=== PATIENT | male | born 1950 | race Caucasian/White ===

== ENCOUNTER 2016-03-18 10:04 | Emergency (ER) | payer OTHER ==
[~2016-03-18] VITALS: Ht 182.9 cm; Wt 102.4 kg
[~2016-03-18 10:04] MED LIST: OMEP40CA PO
[2016-03-18 10:06] VITALS: TEMP 36.8; Ht 182.9 cm; Wt 102.4 kg
[2016-03-18] MEDS ORDERED: DOCU100C PO (10:16)
[2016-03-18] MEDS ORDERED: OXYC-57 PO (10:16)
[2016-03-18] MEDS ORDERED: SUCR1TAB29 PO (10:16)
[2016-03-18] MEDS ORDERED: ONDANSETRON INJ 2 MG/ML 2 ML VIAL IV STA (10:35)
[2016-03-18] MEDS ORDERED: HYDROmorphone INJ 1 MG/ML SYR IV STA (10:35)
[2016-03-18] MEDS ORDERED: VANCOMYCIN 1GM/270ML NSS IV STA (10:35)
[2016-03-18] MEDS ORDERED: SODIUM CHLORIDE 0.9% 1000ML 1,000 ML IV STA (10:35)
[2016-03-18] MEDS ORDERED: ACETAMINOPHEN 500 MG TAB PO STA (10:35)
--- NOTE | 2016-03-18 10:41 | EMERGENCY ROOM VISIT NOTE ---
History Report prepared by Moo: Alber Minor Under the Supervision of: Dr. Heather Lopez M.D. First contact with patient: 10:29 Chief Complaint: ARM PAIN Stated Complaint: LT ARM PAIN/SWELLING-RECENT SURG. 03/14/16 History of Present Illness The patient is a 65 year old male who presents to the Emergency Room with complaints of sharp left arm pain that began today. The patient rates his pain severity a 6/10. Four days ago, the patient had left arm surgery. He had bone spurs removed, arthritis removed, and a slight tear repaired. He is experiencing some elbow and wrist pain as well. He is experiencing some arm erythema and edema as well. He denies any shoulder pain. He started physical therapy yesterday. Source of History: patient Onset: today Position: arm (left) Symptom Intensity: 6/10 Quality: sharp Timing: constant Note: He is experiencing some wrist and elbow pain. He has some arm erythema and edema as well. He denies any shoulder pain. Review of Systems See HPI for pertinent positives & negatives. A total of 10 systems reviewed and were otherwise negative. Past Medical & Surgical Medical Problems: (1) Diab Alla Wo Comp Type Ii Or Nos/Not Uncontrolled (2) Esophageal Reflux (3) Hypertension Nos Surgical Problems: (1) Acute Cholecystitis (2) History of back surgery Family History Family history not pertinent due to age. Social History Smoking Status: Never Smoker Alcohol Use: none Drug Use: none Marital Status: Housing Status: lives with family Occupation Status: unemployed Current/Historical Medications Scheduled Docusate Sodium (Stool Softener), 100 MG PO BID Omeprazole (Prilosec), 40 MG PO DAILY Ondasetron Odt (Zofran Odt), 4 MG SL Q6H Polyethylene Glycol 3350 (Miralax), 17 GM PO DAILY Sucralfate (Carafate), 1 GM PO ACHS Scheduled PRN Hydromorphone Hcl (Dilaudid), 1-2 TAB PO Q4H PRN for Pain Oxycodone/Acetaminophen 5MG/325MG (Percocet 5MG/325MG), 1-2 TABLETS PO Q4H PRN for Pain Allergies Coded Allergies: No Known Allergies (Verified Allergy, Unknown, 11/15/02) Physical Exam Vital Signs Date Time Temp Pulse Resp B/P Pulse Ox O2 Delivery O2 Flow Rate FiO2 1/7/17 13:21 67 16 128/81 91 Room Air 03/18/16 12:09 64 18 139/84 93 Room Air 03/18/16 10:06 36.8 85 18 147/85 98 Room Air Physical Exam CONSTITUTIONAL: Moderate painful distress HEENT: No icterus, moist mucous membranes NECK: No meningismus, trachea is midline. CARDIOVASCULAR: Regular rate, normal perfusion RESPIRATORY: Unlabored breathing. Clear to auscultation. GASTROINTESTINAL: Non-tender GENITOURINARY: No flank tenderness MUSCULOSKELETAL: Full range of motion EXTREMITY: Left shoulder surgical incisions healing well. Mild erythema and tenderness to lateral left elbow. NEUROLOGIC: No acute gross focal deficits. PSYCHIATRIC: Normal affect SKIN: Normal for ethnicity. Medical Decision & Procedures ER Provider Diagnostic Interpretation: Radiology results are stated below per my review and radiologist interpretation. LEFT UPPER EXTREMITY VENOUS DOPPLER CLINICAL HISTORY: Left arm pain. Recent surgery. COMPARISON STUDY: No previous studies for comparison. FINDINGS: The left internal jugular, subclavian, axillary, brachial, basilic, radial, ulnar and cephalic veins are patent. No venous thrombus is identified within the left upper extremity by sonography. Note is made of a fluid collection within the deep soft tissues along the lateral aspect the left elbow which measures 3.4 x 2.7 x 1 cm. This fluid collection is simple appearing. IMPRESSION: 1. No deep venous thrombus within the left upper extremity. 2. 3.4 x 2.7 x 1 cm simple appearing fluid collection within the deep soft tissues along the lateral aspect of the left elbow. The sonographic appearance is nonspecific. This could reflect a distended bursa or joint effusion. Electronically signed by: Marcio Steward M.D. 03/18/2016 12:06 PM Dictated Date/Time: 03/18/2016 12:02 PM Medications Administered Medications (Trade) Dose Ordered Sig/Fox Route Start Time Stop Time Status Last Admin Dose Admin Acetaminophen (Tylenol Tab) 1,000 mg NOW STAT PO 03/18/16 10:35 03/18/16 10:40 DC 03/18/16 11:02 1,000 MG Hydromorphone HCl 1 mg 1 mg PRN STAT IV 03/18/16 10:35 03/18/16 10:40 DC 03/18/16 11:02 1 MG Sodium Chloride (Nss 1000ml) 1,000 ml @ 0 mls/hr Q0M STAT IV 03/18/16 10:35 03/18/16 10:40 DC 03/18/16 11:06 0 MLS/HR Ondansetron HCl (Zofran Inj) 4 mg NOW STAT IV 03/18/16 10:35 03/18/16 10:40 DC 03/18/16 11:01 4 MG Vancomycin HCl (Vancomycin 1gm/ 270ml Nss) 1 gm NOW STAT IV 03/18/16 10:35 03/18/16 10:40 DC 03/18/16 11:02 1 GM ED Course 1029: Past medical records reviewed. The patient was evaluated in room B11. A complete history and physical examination was performed. 1335: Vancomycin HCl 1 gm IV, Zofran Inj 4 mg IV, Sodium Chloride 1000 ml @ 0 mls/hr Wide Open IV, Dilaudid Inj 1 mg IV, Tylenol Tab 1000 mg PO 1300: I discussed the patient's case with Orthopedics. The patient is doing much better. 1320: Upon reexamination the patient is resting. I discussed results and treatment plan with the patient. He verbalizes agreement and understanding. The patient is ready for discharge. Medical Decision Differential diagnoses include but are not limited to; musculoskeletal pain/ strain, DVT, cellulitis, and bursitis. 65-year-old presented to the emergency room with his postop day #4 for evaluation of positional and palpable, reproducible pain of the left lateral elbow of unclear etiology. Patient recently had shoulder surgery but has no specific complaints around his shoulder than expected postoperative pain and wounds are healing well. There is possibly some mild edema and minimally tender erythema over the lateral elbow and vancomycin 1 g IV was given. Consideration was given a DVT and subsequent study showed no DVT but a small fluid collection was identified. This was discussed with orthopedics on-call with patient's surgeon and follow-up is arranged for Sunday. Review of systems also notable for constipation and nausea as well as an effective pain control with the Percocet. Therefore, patient was advised to switch his analgesics to Dilaudid and to stop the Percocet. He understands to obtain Fleet enemas and MiraLAX from the pharmacy for constipation. He was also prescribed Zofran as needed for nausea. Patient and understand: Orthopedics office first thing Sunday morning to arrange follow-up on Sunday. They have no further concerns or questions prior to discharge Consults Time Called: 1255 Consulting Physician: Orthopedics Returned Call: 1300 We discussed the patient's case. Impression Primary Impression: Arm pain, left Scribe Attestation The scribe's documentation has been prepared under my direction and personally reviewed by me in its entirety. I confirm that the note above accurately reflects all work, treatment, procedures, and medical decision making performed by me. Departure Information Dispostion Home / Self-Care Prescriptions Polyethylene Glycol 3350 (MIRALAX) 1 Pow Pow 17 GM PO DAILY, #527 GM Prov: Heather Lopez MD 03/18/16 Ondasetron Odt (ZOFRAN ODT) 4 Mg Tab 4 MG SL Q6H for Nausea, #24 TAB Prov: Heather Lopez MD 03/18/16 Hydromorphone Hcl (DILAUDID) 4 Mg Tab 1-2 TAB PO Q4H Y for Pain, #24 TAB Prov: Heather Lopez MD 03/18/16 Referrals Kaz Rivas III, M.D. (PCP) Forms HOME CARE DOCUMENTATION FORM, IMPORTANT VISIT INFORMATION Patient Instructions A Signature Page, My [facility] Additional Instructions Call your orthopedist Sunday for appointment.
--- NOTE | 2016-03-18 12:08 | DIAGNOSTIC IMAGING REPORT ---
LEFT UPPER EXTREMITY VENOUS DOPPLER CLINICAL HISTORY: Left arm pain. Recent surgery. COMPARISON STUDY: No previous studies for comparison. FINDINGS: The left internal jugular, subclavian, axillary, brachial, basilic, radial, ulnar and cephalic veins are patent. No venous thrombus is identified within the left upper extremity by sonography. Note is made of a fluid collection within the deep soft tissues along the lateral aspect the left elbow which measures 3.4 x 2.7 x 1 cm. This fluid collection is simple appearing. IMPRESSION: 1. No deep venous thrombus within the left upper extremity. 2. 3.4 x 2.7 x 1 cm simple appearing fluid collection within the deep soft tissues along the lateral aspect of the left elbow. The sonographic appearance is nonspecific. This could reflect a distended bursa or joint effusion. Electronically signed by: Marcio Steward M.D. 03/18/2016 12:06 PM Dictated Date/Time: 03/18/2016 12:02 PM
[2016-03-18] MEDS ORDERED: HYDR4TAB2 PO (13:16)
[2016-03-18] MEDS ORDERED: ONDA4TAB10 SL (13:17)
[2016-03-18] MEDS ORDERED: POLY335019 PO (13:18)
[2016-03-18 13:21] VITALS: BP 128/81; PULSE 67; O2SAT 91
== END 2016-03-18 13:28 | disposition home or self-care (01) ==
LOC: C.EDB 10:05
DX: M79.602 Pain in left arm (principal); Z98.890 Other specified postprocedural states; E11.9 Type 2 diabetes mellitus without complications; K21.9 Gastro-esophageal reflux disease without esophagitis; I10 Essential (primary) hypertension

== ENCOUNTER 2016-08-10 22:13 | Emergency (ER) | payer OTHER ==
[~2016-08-10] VITALS: Ht 182.9 cm; Wt 91.5 kg
[~2016-08-10 22:13] MED LIST changes: +DOCU100C PO; +ONDA4TAB10 SL; +OXYC-57 PO; +POLY335019 PO; +SUCR1TAB29 PO
[2016-08-10 22:14] VITALS: Ht 182.9 cm; Wt 91.5 kg
[2016-08-10] MEDS ORDERED: ACETAMINOPHEN 325 MG TAB PO STA (22:26)
[2016-08-10] MEDS ORDERED: SODIUM CHLORIDE 0.9% 500ML 500 ML IV STA (22:26)
[2016-08-10 23:14] LABS: BASO % 0.2 %; BASO ABS # 0.01 K/uL (0-0.2); COMPLETE YES; EOS % 0.2 %; HEMATOCRIT 42.2 % (42-52); IG% 0.2 %; LYMPH % 12.7 %; LYMPH ABS # 0.51 K/uL (1.2-3.4); MEAN CELL VOLUME 85.9 fL (80-100); MEAN CORPUSCULAR HEMOGLOBIN 28.1 pg (25-34); MEAN CORPUSCULAR HGB CONC 32.7 g/dl (32-36); MONO % 10.5 %; NEUT % 76.2 %; PLATELET COUNT 155 K/uL (130-400); RED BLOOD COUNT 4.91 M/uL (4.7-6.1); WHITE BLOOD COUNT 4.01 K/uL (4.8-10.8)
[2016-08-10 23:33] LABS: INR 1.1 (0.9-1.1); PARTIAL THROMBOPLASTIN RATIO 1.2; PROTHROMBIN TIME (PATIENT) 12.1 SECONDS (9.0-12.0)
[2016-08-10 23:35] LABS: ALT/SGPT 22 U/L (12-78); AST/SGOT 32 U/L (15-37); BLOOD UREA NITROGEN 19 mg/dl (7-18); BUN/CREATININE RATIO 17.1 (10-20); CARBON DIOXIDE 27 mmol/L (21-32); CHLORIDE 108 mmol/L (98-107); GLUCOSE 109 mg/dl (70-99); SODIUM 142 mmol/L (136-145)
[2016-08-10 23:37] LABS: ALKALINE PHOSPHATASE 82 U/L (45-117)
[2016-08-10] MEDS ORDERED: OMEP20TA PO (23:49)
[2016-08-10] MEDS ORDERED: GABA-112 PO (23:50)
[2016-08-10] MEDS ORDERED: NAPR-1168 PO (23:51)
[2016-08-11 00:43] LABS: LYME DISEASE AB IGG NEG (NEG); LYME DISEASE AB IGM NEG (NEG)
[2016-08-11 01:02] LABS: URINE APPEARANCE CLOUDY (CLEAR); URINE BILIRUBIN NEG (NEG); URINE COLOR YELLOW; URINE EPITHELIAL CELL AUTO 0-5 /lpf (0-5); URINE NITRITE NEG (NEG); URINE SPECIFIC GRAVITY 1.019 (1.000-1.030); UROBILINOGEN NEG (NEG)
[2016-08-11 01:07] LABS: MANUAL MICROSCOPIC REQUIRED? NO; REVIEW REQ? NO
[2016-08-11] MEDS ORDERED: DOXY100C2 PO (01:21)
[2016-08-11 01:22] VITALS: BP 108/64; PULSE 64; TEMP 37; O2SAT 96
[2016-08-11] MEDS ORDERED: DOXYCYCLINE HYCLATE 100 MG CAP PO ONE (01:30)
--- NOTE | 2016-08-11 02:12 | EMERGENCY ROOM VISIT NOTE ---
History Report prepared by Moo: Mary Jo Summers Under the Supervision of: Dr. Dave Kelly M.D. First contact with patient: 22:19 Chief Complaint: FEVER Stated Complaint: FEVER,POSSIBLE BITE ON BACK History of Present Illness The patient is a 66 year old male who presents to the Emergency Room with complaints of a constant fever throughout the day today. The patient reports a temperature of 102. He was golfing yesterday at [employer] and noticed some discomfort of his lower back when he was finishing golfing. He did not feel anything bite him and states that he had his shirt tucked in the entire time. The patient notes that he has some type of bite on his lower back. It is tender with surrounding redness. He is not sure what bit him. Today the patient has had a fever, generalized body aches, headache, and dizziness. He had some diarrhea this morning. The patient rates his pain as a 4/10 in severity. He denies cough, chest pain, shortness of breath, urinary symptoms, vomiting, and abdominal pain. Source of History: patient Onset: today Position: head (fever) Symptom Intensity: 4/10 Quality: other (fever) Timing: constant Associated Symptoms: + headache, + rash, No cough, No chest pain, No SOB, No vomiting, No abdominal pain, No urinary symptoms Note: Pt notes generalized body aches. Review of Systems See HPI for pertinent positives & negatives. A total of 10 systems reviewed and were otherwise negative. Past Medical & Surgical Medical Problems: (1) Diab Alla Wo Comp Type Ii Or Nos/Not Uncontrolled (2) Esophageal Reflux (3) Hypertension Nos Surgical Problems: (1) Acute Cholecystitis (2) History of back surgery Family History Diabetes mellitus Social History Smoking Status: Never Smoker Alcohol Use: none Drug Use: none Marital Status: Housing Status: lives with family Occupation Status: unemployed Current/Historical Medications Scheduled Doxycycline Hyclate (Vibramycin), 100 MG PO BID Gabapentin (Neurontin), 100 MG PO TID Naproxen Ds (Naprosyn Ds), 550 MG PO BID Omeprazole (Omeprazole), 40 MG PO DAILY Sucralfate (Carafate), 1 GM PO ACHS Allergies Coded Allergies: No Known Allergies (Verified Allergy, Unknown, 11/15/02) Physical Exam Vital Signs Date Time Temp Pulse Resp B/P (MAP) Pulse Ox O2 Delivery O2 Flow Rate FiO2 08/11/16 01:22 37.0 64 16 108/64 96 08/11/16 00:03 37.1 69 16 113/60 94 Room Air 08/10/16 22:14 37.6 100 18 133/82 94 Room Air Physical Exam Constitutional: Vital signs reviewed. Eyes: Pupils are equal round reactive to light. Conjunctiva are noninjected. ENT: Pharynx is clear without erythema or exudate. Mucous membranes are moist. Neck supple without meningeal signs. Respiratory: Clear to auscultation bilaterally. Breath sounds are equal bilaterally. Cardiovascular: Regular rate and rhythm. No rubs or gallops. GI: Soft, nondistended and nontender. Bowel sounds are present. Musculoskeletal: No peripheral edema. No lower extremity tenderness. Integumentary: He has a 12x5 cm erythematous rash in the left lower back without central clearing or visible tick. No vesicles or bullae, no petechia or purpura. The rash is blanchable. It is also warm and tender to touch. Neurological: The patient is awake and alert. No focal deficits. Psychiatric: Normal affect. Medical Decision & Procedures ER Provider Diagnostic Interpretation: Chest x-ray as interpreted by myself reveals no acute cardiopulmonary process, no pneumonia. Laboratory Results 08/10/16 22:38 Red Blood Count 4.91, Mean Corpuscular Volume 85.9, Mean Corpuscular Hemoglobin 28.1, Mean Corpuscular Hemoglobin Concent 32.7, Mean Platelet Volume 10.0, Neutrophils (%) (Auto) 76.2, Lymphocytes (%) (Auto) 12.7, Monocytes (%) (Auto) 10.5, Eosinophils (%) (Auto) 0.2, Basophils (%) (Auto) 0.2, Neutrophils # (Auto ) 3.05, Lymphocytes # (Auto) 0.51, Monocytes # (Auto) 0.42, Eosinophils # (Auto ) 0.01, Basophils # (Auto) 0.01 08/10/16 22:38 Test 08/10/16 22:38 08/10/16 22:40 08/11/16 00:08 White Blood Count 4.01 K/uL (4.8-10.8) Red Blood Count 4.91 M/uL (4.7-6.1) Hemoglobin 13.8 g/dL (14.0-18.0) Hematocrit 42.2 % (42-52) Mean Corpuscular Volume 85.9 fL (80-100) Mean Corpuscular Hemoglobin 28.1 pg (25-34) Mean Corpuscular Hemoglobin Concent 32.7 g/dl (32-36) Platelet Count 155 K/uL (130-400) Mean Platelet Volume 10.0 fL (7.4-10.4) Neutrophils (%) (Auto) 76.2 % Lymphocytes (%) (Auto) 12.7 % Monocytes (%) (Auto) 10.5 % Eosinophils (%) (Auto) 0.2 % Basophils (%) (Auto) 0.2 % Neutrophils # (Auto) 3.05 K/uL (1.4-6.5) Lymphocytes # (Auto) 0.51 K/uL (1.2-3.4) Monocytes # (Auto) 0.42 K/uL (0.11-0.59) Eosinophils # (Auto) 0.01 K/uL (0-0.5) Basophils # (Auto) 0.01 K/uL (0-0.2) RDW Standard Deviation 42.6 fL (36.4-46.3) RDW Coefficient of Variation 13.5 % (11.5-14.5) Immature Granulocyte % (Auto) 0.2 % Immature Granulocyte # (Auto) 0.01 K/uL (0.00-0.02) Prothrombin Time 12.1 SECONDS (9.0-12.0) Prothromb Time International Ratio 1.1 (0.9-1.1) Activated Partial Thromboplast Time 31.4 SECONDS (21.0-31.0) Partial Thromboplastin Ratio 1.2 Anion Gap 7.0 mmol/L (3-11) Est Creatinine Clear Calc Drug Dose 72.5 ml/min Estimated GFR () 80.6 Estimated GFR (Non- 69.6 BUN/Creatinine Ratio 17.1 (10-20) Calcium Level 8.0 mg/dl (8.5-10.1) Total Bilirubin 0.5 mg/dl (0.2-1) Direct Bilirubin < 0.1 mg/dl (0-0.2) Aspartate Amino Transf (AST/SGOT) 32 U/L (15-37) Alanine Aminotransferase (ALT/SGPT) 22 U/L (12-78) Alkaline Phosphatase 82 U/L (45-117) Total Protein 6.5 gm/dl (6.4-8.2) Albumin 3.4 gm/dl (3.4-5.0) Lyme Disease IgG Antibody NEG (NEG) Monoscreen NEG (NEG) Influenza Type A Antigen Neg for Influ A (NEG) Influenza Type B Antigen Neg for Influ B (NEG) Urine Color YELLOW Urine Appearance CLOUDY (CLEAR) Urine pH 6.0 (4.5-7.5) Urine Specific [place] 1.019 (1.000-1.030) Urine Protein NEG (NEG) Urine Glucose (UA) NEG (NEG) Urine Ketones NEG (NEG) Urine Occult Blood NEG (NEG) Urine Nitrite NEG (NEG) Urine Bilirubin NEG (NEG) Urine Urobilinogen NEG (NEG) Urine Leukocyte Esterase NEG (NEG) Urine WBC (Auto) 0 /hpf (0-5) Urine RBC (Auto) 0-4 /hpf (0-4) Urine Hyaline Casts (Auto) 0 /lpf (0-5) Urine Epithelial Cells (Auto) 0-5 /lpf (0-5) Urine Bacteria (Auto) NEG (NEG) Laboratory results as reviewed by me. Medications Administered Medications (Trade) Dose Ordered Sig/Fox Route Start Time Stop Time Status Last Admin Dose Admin Acetaminophen (Tylenol Tab) 650 mg NOW STAT PO 08/10/16 22:26 08/10/16 22:29 DC 08/10/16 22:33 650 MG Sodium Chloride 500 ml @ 999 mls/hr Q31M STAT IV 08/10/16 22:26 08/10/16 22:56 DC 08/10/16 22:44 999 MLS/HR Doxycycline Hyclate (Vibramycin Cap) 100 mg ONE ONCE PO 08/11/16 01:30 08/11/16 01:31 DC 08/11/16 01:27 100 MG ED Course 2219: The patient was evaluated in room C5. A complete history and physical exam was performed. 2226: NSS 500 ml @ 999 mls/hr IV, Tylenol tab 650 mg PO 0116: I reassessed the patient at this time. He is feeling better and resting comfortably. His headache and muscle aches are gone. I discussed the results and treatment plan with the patient and his . They want the patient to be treated for Lyme because the patient has had multiple embedded ticks in the past. I answered all pertaining questions that they had. They expressed understanding and verbalized agreement. The patient will be discharged home. 0130: Vibramycin Cap 100 mg PO Medical Decision This is a 66-year-old male who presents with fever and rash. Differential diagnosis includes cellulitis, Lyme disease, pneumonia, bacteremia, viral syndrome. I did perform a limited focused review of portions of the patient's old chart on the electronic medical record. The patient has had no recent pertinent visits to this hospital. Medication Reconciliation: I attest that I have personally reviewed the patient' s current medication list. Blood Pressure Screening: Patient was found to have an elevated blood pressure and was referred to their primary doctor for recheck and further treatment. I did evaluate the patient as noted above. IV access was established. I did treat the patient with normal saline IV and Tylenol. I did order and personally review the patient's chest x-ray as described above. Blood cultures were ordered. I did order and review the patient's blood work as noted in the electronic medical record. His white blood cell count is slightly low. Lyme testing and Monospot were both negative. Rapid flu testing was negative. He states that he is feeling much better at this time. He no longer has a headache or body aches and does not feel dizzy. I did discuss the test results with the patient. Despite the negative Lyme test they were still concerned about Lyme disease as the patient has had multiple tick bites recently. They did prefer that I treat him for possible Lyme. I did send a Western blot test for Lyme. The patient was given doxycycline here and discharged with a three-week prescription for doxycycline. He was advised follow closely with his doctor for further evaluation. He was discharged in good condition. Impression Primary Impression: Acute febrile illness Additional Impression: Rash Scribe Attestation The scribe's documentation has been prepared under my direct and personally reviewed by me in its entirety. I confirm that the note above accurately reflects all work, treatment, procedures, and medical decision making performed by me. Departure Information Dispostion Home / Self-Care Prescriptions Doxycycline Hyclate (VIBRAMYCIN) 100 Mg Cap 100 MG PO BID for 21 Days, #42 CAP Prov: Dave Kelly M.D. 6/2/17 Referrals Kaz Rivas III, M.D. (PCP) Forms HOME CARE DOCUMENTATION FORM, IMPORTANT VISIT INFORMATION Patient Instructions My [facility] Additional Instructions At this time it is unclear whether you have Lyme disease or simple cellulitis. You have chosen to be treated for Lyme disease. A Western blot test was sent and will not be resulted for at least a week. Have your doctor follow up with this result. You have been examined and treated today on an emergency basis only. This is not a substitute for, or an effort to provide, complete comprehensive medical care. It is impossible to recognize and treat all injuries or illnesses in a single emergency department visit. It is therefore important that you follow up closely with your physician. Call as soon as possible for an appointment. Return for worsening symptoms or if you develop vomiting, chest pain, abdominal pain, neck stiffness, severe headache or any other concerning symptoms. Problem Qualifiers
--- NOTE | 2016-08-11 06:42 | DIAGNOSTIC IMAGING REPORT ---
CHEST 2 VIEWS ROUTINE CLINICAL HISTORY: Pneumonia COMPARISON STUDY: No previous studies for comparison. FINDINGS: The cardiac and mediastinal contours are normal. There is no evidence of focal pulmonary consolidation. There is no evidence of failure. No pleural effusions are visualized.[ IMPRESSION: No active disease in the chest. Electronically signed by: Artis Hughes M.D. 08/11/2016 6:40 AM Dictated Date/Time: 08/11/2016 6:40 AM
[2016-08-15 08:40] LABS: 18KDIGG BAND NONREACTIVE (NONREACTIVE); 23KDIGG BAND NONREACTIVE (NONREACTIVE); 23KDIGM BAND REACTIVE (NONREACTIVE); 28KDIGG BAND NONREACTIVE (NONREACTIVE); 30KDIGG BAND NONREACTIVE (NONREACTIVE); 39KDIGG BAND NONREACTIVE (NONREACTIVE); 39KDIGM BAND NONREACTIVE (NONREACTIVE); 41KDIGG BAND REACTIVE (NONREACTIVE); 41KDIGM BAND REACTIVE (NONREACTIVE); 45KDIGG BAND NONREACTIVE (NONREACTIVE); 58KDIGG BAND NONREACTIVE (NONREACTIVE); 66KDIGG BAND NONREACTIVE (NONREACTIVE); 93KDIGG BAND NONREACTIVE (NONREACTIVE)
== END 2016-08-11 01:29 | disposition home or self-care (01) ==
LOC: C.EDB 22:13 → C.EDC 08-11 01:29
DX: R50.9 Fever, unspecified (principal); R21 Rash and other nonspecific skin eruption; M54.5 Low back pain; E11.9 Type 2 diabetes mellitus without complications; K21.9 Gastro-esophageal reflux disease without esophagitis; I10 Essential (primary) hypertension; Z83.3 Family history of diabetes mellitus

== ENCOUNTER 2021-04-29 05:04 | Observation (INO) ==
--- NOTE | 2021-03-31 09:29 | PAT Medication Instructions ---
Medication Instructions Date of Service March 31, 2021 Home Medications omeprazole 40 mg capsule,delayed release 40 mg PO QAM multivitamin 1 tab PO QAM vitamin E 400 unit capsule 400 unit PO BID atorvastatin 10 mg tablet 10 mg PO QAM sucralfate 1 gram tablet 1 g PO AC ergocalciferol (vitamin D2) 400 unit capsule 10 mcg PO QAM meloxicam 15 mg tablet 15 mg PO QAM tamsulosin 0.4 mg capsule 0.4 mg PO HS ASK your surgeon for instructions meloxicam 15 mg tablet 15 mg PO QAM STOP taking 2 weeks before surgery vitamin E 400 unit capsule 400 unit PO BID DO NOT take the morning of surgery multivitamin 1 tab PO QAM sucralfate 1 gram tablet 1 g PO AC ergocalciferol (vitamin D2) 400 unit capsule 10 mcg PO QAM Take morning of surgery With a small sip of water, OTHERWISE NOTHING TO EAT OR DRINK AFTER MIDNIGHT: omeprazole 40 mg capsule,delayed release 40 mg PO QAM atorvastatin 10 mg tablet 10 mg PO QAM Take evening before surgery tamsulosin 0.4 mg capsule 0.4 mg PO HS Other Notes If you have any questions please call us at [phone] or [phone] or [phone] or [phone]
--- NOTE | 2021-04-04 09:39 | Anesthesiology Consultation ---
Date of Service April 04, 2021 Assessment & Plan (1) Encounter for pre-operative examination: Chart Review Chart Review: Acceptable Risk for Surgery (pending PCP office visit scheduled 04/06/21 and preop Covid testing ) and Patient seen in Pre Admission Testing - Awaiting routine PCP office visit scheduled 04/06/21 Upon review of chart and discussion with Dr. Wong - patient is an acceptable candidate for [facility] from anesthesia perspective. Patient is motivated, has good support; pending surgeon's office completes [facility] preop requirements- patient may proceed with outpatient TKA. Per PAT appt on 04/04/21, patient denies any recent travel or large group activities. Pt did test Covid positive 03/22/21 ([employer] [place])- will attempt to get copy. No current Covid related symptoms. No known Covid infection in the past 90 days. Pt is vaccinated for Covid. Preop Covid testing scheduled 04/27/21 = will await results. Educated on importance of self quarantining, social distancing and wearing mask in public for the patient one week prior to surgery and after Covid testing done Left knee arthroscopy with partial medial meniscectomy and chondroplasty 09/23/2020 = done under [facility] with LMA #5. Teaching & Discussion Pre-Anesthesia Teaching/Discussion Notes: Instructed NPO after midnight before surgery,except medications with 15 cc of water. Medication instructions provided according to the PAT guidelines. History Surgery Operation Date: 04/29/21 11:30 Proposed Procedures p Right Total Knee Arthroplasty - Gil Gonsales, Height/Weight Height: 6 ft Weight: 97.5 kg Allergies Allergy/AdvReac Type Severity Reaction Status Date / Time levofloxacin [From Levaquin] AdvReac Intermediate Muscle Verified 04/04/21 09:41 Pain, pain to achilles tendon oxycodone AdvReac Mild NAUSEA/VOMI Verified 04/04/21 08:16 TING Medications Home Medications Medication Instructions Recorded Confirmed Last Taken omeprazole 40 mg capsule,delayed 40 mg PO QAM 05/03/18 04/04/21 09/23/20 release multivitamin 1 tab PO QAM 02/09/20 04/04/21 09/22/20 vitamin E 400 unit capsule 400 unit PO BID 02/27/20 04/04/21 09/16/20 atorvastatin 10 mg tablet 10 mg PO QAM 04/01/20 04/04/21 09/23/20 sucralfate 1 gram tablet 1 g PO AC 09/13/20 04/04/21 09/22/20 ergocalciferol (vitamin D2) 400 10 mcg PO QAM 03/22/21 04/04/21 Unknown unit capsule meloxicam 15 mg tablet 15 mg PO QAM 03/22/21 04/04/21 Unknown tamsulosin 0.4 mg capsule 0.4 mg PO HS 03/22/21 04/04/21 Unknown Past Medical History Medical History (Updated 04/04/21 @ 10:06 by Nida Armijo PA-C) Dyslipidemia GERD (gastroesophageal reflux disease) Aggravated by recent Covid infection Gout HX History of COVID-19 DX'ED MAR 22, 2021 - had post nasal drip, headache, body aches - resolved Hypertension BORDERLINE , NO MEDS FOR Osteoarthritis Prostate cancer Dx 1997; h/o radiation COURSE OF LUPRON COMPLETED Sciatica Radiation to right LE Exercise / Class Metabolic Activity III < 4 Walking/Shop/Light housework (one flight of stairs -no chest pain or SOB - goes slow due to back pain and knee pain ) Past Family History Family History Mother Diabetes Other Heart disease No family history of adverse response to anesthesia Past Surgical History Surgical History H/O lumbar discectomy H/O shoulder surgery left History of arthroscopy of left knee X 2 History of cholecystectomy History of colonoscopy History of dental surgery History of esophagogastroduodenoscopy (EGD) History of hand surgery RIGHT CARPAL TUNNEL History of prostate biopsy Hx of tonsillectomy Past Anesthesia History No Hx of Anesthesia Complications and No Family Hx of Anesthesia Complications History of PONV No Hx of PONV and No Hx of Motion Sickness Social History Smoking Status: Never smoker Do You Dip or Chew Tobacco: No Hx Alcohol Use: Yes Alcohol type: hard liquor alcohol intake frequency: other Alcohol Intake Frequency Comment: RARELY Hx Substance Use: No substance use type: does not use Review of Systems Increased reflux Hx of snoring - no hx of sleep study Patient denies shortness of breath, dyspnea on exertion, cough, wheezing, palpitations. No hx of seizures, stroke, [place]. No hx of blood clots or blood transfusions Physical Exam Vital Signs VITALS BP 129/82 P 87 TEMP 98.2 SP02 94% RESP 16 Constitutional no acute distress ENMT Mouth: no TMJ clicking Thyromental Distance: < 3.5 Finger Breadths (3.0) Mallampati Class: I Crowns to molars Neck + limited neck extension (significant ) Respiratory normal respiratory effort; no respiratory distress Auscultation: lungs clear to auscultation bilaterally; no wheezes Cardiovascular Rate/Rhythm: regular rate and regular rhythm Heart Sounds: no murmur Vessels: no carotid bruit Musculoskeletal Spine: no pain with cervical ROM Extremities: extremities normal to inspection Psychiatric Orientation: alert Lab Results Anesthesia Preop Results Results Anesthesia Widget: WBC 7.73 K/uL (4.8-10.8) 04/04/21 Hgb 13.5 g/dL (14.0-18.0) L 04/04/21 Hct 40.1 % (42-52) L 04/04/21 Plt 214 K/uL (130-400) 04/04/21 Na 135 mmol/L (136-145) L 04/04/21 K 4.3 mmol/L (3.5-5.1) 04/04/21 Cl 103 mmol/L (98-107) 04/04/21 CO2 26 mmol/L (21-32) 04/04/21 BUN 20 mg/dl (6-23) 04/04/21 Creat 0.81 mg/dl (0.6-1.4) 04/04/21 Glucose Level 89 mg/dl (70-99(Fasting)) 04/04/21 PT 10.5 Seconds (9.0-12.0) 04/04/21 PTT 29.6 Seconds (21.0-31.0) 04/04/21 INR 1.0 (0.9-1.1) 04/04/21 Blood Type A Positive 04/04/21 Antibody Screen NEGATIVE 04/04/21 Testing Electrocardiogram Date: 04/04/21 Findings: + NSR @ (73bpm) and + no change from (Mar 03, 2020 per cardio ) Incomplete RBBB. Chest X-Ray Date: 04/04/21 Findings: + NAD Minimal linear left basilar opacity represents atelectasis nipple shadows project over the chest.
--- NOTE | 2021-04-28 14:09 | History & Physical Report ---
Date of Service April 28, 2021 Assessment & Plan (1) Right knee DJD: We will proceed with a right total knee arthroplasty. Postoperatively he will be in our outpatient joint protocol. He will be given oral pain medications and aspirin for DVT prophylaxis. He will be discharged home. He plans to have [facility] physical therapy come to his house the following day. History of Present Illness Chief Complaint: Osteoarthritis of the right knee . Primary Care Provider: Kaz Rivas MD Piyush is a pleasant 70-year-old male who is been dealing with chronic increasing Right knee pain. X-rays and clinical examination have been diagnostic for advanced osteoarthritis of the Right knee. After failing extensive conservative treatment, he has elected proceed with a right total knee arthroplasty. . Allergies Allergy/AdvReac Type Severity Reaction Status Date / Time levofloxacin [From Levaquin] AdvReac Intermediate Muscle Verified 04/04/21 09:41 Pain, pain to achilles tendon oxycodone AdvReac Mild NAUSEA/VOMI Verified 04/04/21 08:16 TING Home Medications Medication Instructions Recorded Confirmed Type omeprazole 40 mg capsule,delayed 40 mg PO QAM 05/03/18 04/04/21 History release multivitamin 1 tab PO QAM 02/09/20 04/04/21 History vitamin E 400 unit capsule 400 unit PO BID 02/27/20 04/04/21 History atorvastatin 10 mg tablet 10 mg PO QAM 04/01/20 04/04/21 History sucralfate 1 gram tablet 1 g PO AC 09/13/20 04/04/21 History ergocalciferol (vitamin D2) 400 10 mcg PO QAM 03/22/21 04/04/21 History unit capsule meloxicam 15 mg tablet 15 mg PO QAM 03/22/21 04/04/21 History tamsulosin 0.4 mg capsule 0.4 mg PO HS 03/22/21 04/04/21 History Past Med/Surg History Medical History Dyslipidemia GERD (gastroesophageal reflux disease) Aggravated by recent Covid infection Gout HX History of COVID-19 DX'ED MAR 22, 2021 - had post nasal drip, headache, body aches - resolved Hypertension BORDERLINE , NO MEDS FOR Osteoarthritis Prostate cancer Dx 1997; h/o radiation COURSE OF LUPRON COMPLETED Sciatica Radiation to right LE Surgical History H/O lumbar discectomy H/O shoulder surgery left History of arthroscopy of left knee X 2 History of cholecystectomy History of colonoscopy History of dental surgery History of esophagogastroduodenoscopy (EGD) History of hand surgery RIGHT CARPAL TUNNEL History of prostate biopsy Hx of tonsillectomy Family History Mother Diabetes Other Heart disease No family history of adverse response to anesthesia Social History Smoking Status: Never smoker Second Hand Exposure: Yes (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 Physical Exam On physical examination of the right knee, he has a trace effusion. He ambulates with a cane. He has range of motion from 0 to 120 degrees. No instability. He has pain over the distal medial femoral condyle. . Constitutional WD/WN, vitals as above Eyes PERRL, conjunctivae normal, anicteric sclerae ENMT external ear and nose normal, oropharynx normal Neck trachea midline, no thyromegaly Respiratory normal respiratory effort Cardiovascular RRR, no murmur, no edema Gastrointestinal (Abdomen) normal bowel sounds, soft, nontender, no hepatosplenomegaly Psychiatric A+Ox3, euthymic affect Results & Data Results & Data Laboratory Results . Diagnostic Findings X-rays of the right knee do show advanced osteoarthritis with joint space narrowing, osteophyte formation, and [id number] articulation . PG Care Time/CCT Total # of Minutes Spent Total Time Spent with Patient: Total time spent is greater than 50% in coordination of care (as documented) at patient's floor/unit and/or counseling patient: Coding Level of Care Code None Diagnoses Right knee DJD M17.11
[2021-04-29] MEDS ORDERED: Ketorolac (*for OR use only*) 30 MG, dexAMETHasone 4 MG, KETAMINE HCL (**OR use only) 1... INFIL SCH (06:00)
[2021-04-29] MEDS ORDERED: TRANEXAMIC ACID 1,000 MG **IV Intra-op IV SCH (06:00)
[2021-04-29] MEDS ORDERED: LR 60ML/HR IV SCH (06:00)
[2021-04-29] MEDS ORDERED: FAMOTIDINE 20 MG TAB PO SCH (06:00)
[2021-04-29] MEDS ORDERED: TRANEXAMIC ACID 1,000 MG **IV Pre-op IV SCH (06:00)
[2021-04-29] MEDS ORDERED: ceFAZolin 2000MG 2,000 MG/15 ML SYR IV SCH (06:00)
[2021-04-29] MEDS ORDERED: GABAPENTIN 300 MG CAP PO SCH (06:00)
[2021-04-29] MEDS ORDERED: LR 500ML BOLUS, THEN 15ML/HR IV SCH (06:00)
[2021-04-29] MEDS ORDERED: dexAMETHasone 4 MG TAB PO SCH (06:00)
[2021-04-29] MEDS ORDERED: ACETAMINOPHEN 500 MG TAB PO SCH (06:00)
[2021-04-29] MEDS ORDERED: LIDOCAINE 2%/EPINEPHRINE 1:200,000 20 ML SDV ONE (06:24)
[2021-04-29] MEDS ORDERED: BUPIVACAINE 0.5 % 5 MG/1 ML PF 10ML VIAL ONE (06:24)
[2021-04-29] MEDS ORDERED: ORTHO JOINT ANESTHETIC ONE (06:29)
[2021-04-29] MEDS ORDERED: PROPOFOL IV EMULSION 10 MG/ML 20 ML VIAL IV ONE ×2 (06:37→07:40)
[2021-04-29] MEDS ORDERED: ONDANSETRON INJ 2 MG/ML 2 ML VIAL ONE ×2 (06:39→08:31)
--- NOTE | 2021-04-29 06:39 | History & Physical Bridge Note ---
Date of Service April 29, 2021 History & Physical Bridge Note I have examined the patient, reviewed the History & Physical and in the interval since the performance of the History & Physical I have noted the following changes of clinical significance: no changes noted
[2021-04-29] MEDS ORDERED: GLYCOPYRROLATE 0.2 MG/ML VIAL ONE (06:40)
[2021-04-29] MEDS ORDERED: MIDAZOLAM HCL 1 MG/ML 2ML VIAL ONE (06:41)
[2021-04-29] MEDS ORDERED: fentaNYL citrate 100 MCG/2 ML VIAL IV PRN (06:43)
[2021-04-29] MEDS ORDERED: ATROPINE SULFATE 0.1 MG/ML 10ML SYR IV PRN (06:43)
[2021-04-29] MEDS ORDERED: HYDROmorphone INJ 2 MG/ML SYR/VIAL IV PRN (06:43)
[2021-04-29] MEDS ORDERED: ONDANSETRON INJ 2 MG/ML 2 ML VIAL IV PRN ×2 (06:43→16:12)
[2021-04-29] MEDS ORDERED: ePHEDrine sulfate 50 MG/ML AMP IV PRN (06:43)
[2021-04-29] MEDS ORDERED: KETAMINE 50 MG/5 ML SYRINGE ONE (07:10)
[2021-04-29] MEDS ORDERED: KETOROLAC 30 MG/ML VIAL ONE (07:40)
--- NOTE | 2021-04-29 08:15 | Operative Report ---
PG Post Operative Report Pre & Post Diagnosis Operation Date: 04/29/21 07:00 Pre-Op Diagnosis: Degenerative Joint Disease Left Knee Post-Op Diagnosis: Degenerative Joint Disease Left Knee I identified the patient and participated in the time-out.: Yes Procedure Operation Date: 04/29/21 07:00 Actual Procedures p Right Total Knee Arthroplasty, Cemented(Right) - Gil Gonsales DO Surgeon Gil Gonsales DO Truck Supervisor Gil Franco PAC Estimated Blood Loss 30 Findings Consistent with Post-Op Diagnosis Specimens Right femoral and tibial bone Complications none Disposition Disposition: Recovery Room Indications Piyush is a pleasant 70-year-old male who is been dealing with chronic increasing right knee pain. X-rays and clinical examination have been diagnostic for advanced osteoarthritis of the right knee. After failing conservative treatment, he elected proceed with a right total knee arthroplasty. Description of Procedure Implants used: I used a Ketan Persona total knee arthroplasty system with a size 10 standard femur, G tibia, 37 oval patella, and a size 11 medial congruent polyethylene bearing. All components were cemented in place with Biomet cement. Piyush arrived [facility] for the above procedure. He was seen in the preoperative holding area and the operative extremity was identified and signed. He was given a preoperative antibiotic, TXA, and epidural anesthetic and an adductor nerve block. He was taken back to the operating room and laid on the table in supine position. He was given basic sedation. The operative knee was then prepped and draped in sterile fashion. A timeout was done, and the patient and the operative extremity was properly identified. A midline incision was made directly over the patella. Dissection was taken down to the extensor mechanism. A subvastus arthrotomy was used. The medial retinaculum was released and the fat pad was mostly excised. The knee was flexed and the ACL, PCL, and meniscus were removed. A drill was sent down the center of the femoral canal followed by an intramedullary dali. Off that dali a distal femoral cutting block was placed. 9 mm was resected off the distal femur at 5 of valgus. A posterior referencing AP sizing guide was then placed on the distal femur. The femur measured to be a size 10. 2 drill holes were placed in 3 of external rotation. A 4-in-1 cutting block was then impacted into place. Anterior, posterior, and chamfer cuts were then made. The proximal tibia was then exposed. An external tibial alignment guide was placed. A tibial cut guide was then anchored in place and the proximal tibia was then resected. The posterior aspect of the knee was then opened up and any additional meniscus fragments and osteophytes were removed. The tibia measured to be a size G. The tibial plate was then placed in the appropriate rotation and the tibia was drilled and punched. Trial components were then placed. I used a size 11 medial congruent polyethylene insert. The knee was brought through a full range of motion and felt to be stable. The peg holes for the femoral component were then drilled. The patella was then everted and 9 mm was resected off the posterior aspect of the patella. The patella measured to be a size 37 oval. 3 peg holes were then drilled. A trial patella was placed. The knee was once again brought through a full range of motion and felt to be stable. Trial components were then removed. The surrounding soft tissues were injected with 100 cc of an orthopedic pain control cocktail. All components were then cemented into place with Biomet cement. The final polyethylene insert was then snapped into place. Once cement was dry the tourniquet was deflated. Hemostasis was obtained. A dilute betadyne lavage was then done for 3 minutes. The joint was then irrigated with normal saline solution. The subvastus arthrotomy was then closed with #1 Vicryl suture. The skin was closed with 2-0 Vicryl, 3-0V lock suture, and parker. A soft compressive dressing was placed. He was then transferred to a hospital bed and taken to the postanesthesia care unit in stable condition. He tolerated the procedure well. Gil Franco PA-C, was present for the entire procedure. He was critical for patient positioning, prepping, draping, retraction exposure, wound closure and application of sterile dressing. I attest to the content of the Intraoperative Record and any orders documented therein. Any exceptions are noted below.
--- NOTE | 2021-04-29 09:20 | XRay Report ---
XR knee RT 1 or 2V routine CLINICAL HISTORY: Surgical Post Op. Status post knee replacement COMPARISON STUDY: None TECHNIQUE: 2 left knee views FINDINGS: The patient is status post total knee replacement. The prosthetic components are in anatomi c alignment with no acute abnormality seen. Air is present within the soft tissues from the procedure . Skin parker are seen anteriorly. IMPRESSION: 1. Status post total knee replacement. ACT 112: Negative or not required by law. Electronically signed by: Elvin Booker M.D. 04/29/2021 9:19 AM
--- NOTE | 2021-04-29 09:20 | Anesthesiology Progress Note ---
Date of Service April 29, 2021 Anesthesia Post Procedure Vital Signs Vital Signs: Temp Pulse Pulse Resp BP Pulse Ox 04/29/21 08:55 36.5 C 68 16 125/78 92 04/29/21 08:45 36.5 C 68 11 L 126/77 98 04/29/21 08:35 72 11 L 121/78 99 04/29/21 08:26 36.3 C L 76 16 119/71 95 04/29/21 05:30 36.9 C 81 18 133/79 96 Pain Intensity Right Knee: Pain Intensity: 2 Transfer of Care Handoff Completed per policy Notes Mental Status: alert / awake / arousable and participated in evaluation Patient Amnestic to Procedure: Yes Nausea / Vomiting: adequately controlled Pain: adequately controlled Airway Patency, RR, SpO2: stable & adequate BP & HR: stable & adequate Hydration State: stable & adequate Anesthetic Complications: no major complications apparent and Pt Satisfied with anesthetic care
[2021-04-29] MEDS ORDERED: PROMETHAZINE HCL 25 MG TAB PO ONE (13:56)
--- NOTE | 2021-04-29 14:03 | XRay Report ---
XR chest 1V portable CLINICAL HISTORY: Decreased O2 sat post op.. Shortness of breath COMPARISON STUDY: 04/04/2021 TECHNIQUE: 1 view of the chest FINDINGS: Single frontal view of the chest demonstrates the cardiomediastinal silhouette to be within normal li mits. The lungs are clear of alveolar opacities. There is no evidence for pleural effusion. There is no evidence for vascular congestion. There is no acute osseous pathology. IMPRESSION: 1. No acute cardiopulmonary disease. ACT 112: Negative or not required by law. Electronically signed by: Elvin Booker M.D. 04/29/2021 2:01 PM
--- NOTE | 2021-04-29 14:09 | Communication Note ---
Date of Service: April 29, 2021 pt has developed poor saturations and has required 1 L oxygen. physical exam is benign and chest xray was wnl. Pt has had presistent nausea. at this time, i feel the patient is not appropriate for d/c home considering a recent tka. dr lara aware and will admit the patient
[2021-04-29] MEDS ORDERED: HYDROmorphone INJ 0.5 MG/0.5 ML SYR IV PRN (16:12)
[2021-04-29] MEDS ORDERED: bisacodyL 10 MG SUPP PR PRN (16:12)
[2021-04-29] MEDS ORDERED: METOCLOPRAMIDE HCL INJ 5 MG/ML 2 ML VIAL IV PRN (16:12)
[2021-04-29] MEDS ORDERED: MAGNESIUM HYDROXIDE SUSP 30 ML UDC PO PRN (16:12)
[2021-04-29] MEDS ORDERED: NALOXONE HCL 0.4 MG/1 ML VIAL/CARP IV PRN (16:12)
[2021-04-29] MEDS ORDERED: oxyCODONE HCL IR 5 MG TAB (IMMEDIATE RELEASE) PO PRN (16:12)
[2021-04-29] MEDS: SODIUM CHLORIDE 0.9% 1000ML 1,000 ML IV SCH (16:25)
[2021-04-29] MEDS: SUCRALFATE 1 GM TAB PO SCH (17:01)
[2021-04-29] MEDS: ceFAZolin 2000MG 2,000 MG/15 ML SYR IV SCH (18:04)
[2021-04-29] MEDS: KETOROLAC TROMETHAMINE 15 MG/ML VIAL IV SCH (18:04)
[2021-04-29] MEDS ORDERED: TAMSULOSIN HCL 0.4 MG CAP PO SCH (21:00)
[2021-04-29] MEDS ORDERED: SENNA 8.6 MG TAB PO SCH (21:00)
[2021-04-29] MEDS: ASPIRIN 81 MG ECTAB PO SCH (21:03)
[2021-04-29] MEDS: DOCUSATE SODIUM 100 MG CAP PO SCH (21:03)
[2021-04-29] MEDS: ACETAMINOPHEN 500 MG TAB PO SCH (21:03)
[2021-04-30] MEDS: KETOROLAC TROMETHAMINE 15 MG/ML VIAL IV SCH ×2 (00:59→05:26)
[2021-04-30] MEDS: ceFAZolin 2000MG 2,000 MG/15 ML SYR IV SCH (01:01)
[2021-04-30] MEDS: SODIUM CHLORIDE 0.9% 1000ML 1,000 ML IV SCH (02:51)
[2021-04-30] MEDS: ACETAMINOPHEN 500 MG TAB PO SCH (05:25)
[2021-04-30 05:47] LABS: Hematocrit (blood only) 32.7 % (42-52); Hemoglobin 10.8 g/dL (14.0-18.0); Mean Corpuscular Hemoglobin 29.1 pg (25-34); Mean Corpuscular Volume 88.1 fL (80-100); Mean Platelet Volume 10.5 fL (7.4-10.4); Platelet Count 153 K/uL (130-400); RDW Coefficient of Variation 13.5 % (11.5-14.5); RDW Standard Deviation 44.1 fL (36.4-46.3); Red Blood Count 3.71 M/uL (4.7-6.1)
[2021-04-30 06:12] LABS: BUN Creatinine Ratio 22.2 (10-20); Calcium 8.6 mg/dl (8.5-10.1); Creatinine Clr Calc Pharmacy 116.2 ml/min; Est GFR (African American) 109.5 ml/min; Est GFR (Non-African American) 94.5 ml/min
--- NOTE | 2021-04-30 07:00 | Orthopedic Progress Note ---
Date of Service April 30, 2021 Assessment & Plan (1) Status post right knee replacement: Overall is doing well. Is not having much pain in the right knee. He is on aspirin for DVT prophylaxis. His oxygen saturations have returned to normal. He will be seen by physical therapy today for ambulation and range of motion exercises. He can be discharged home later today. He will follow-up with orthopedics in 2 weeks. Gus Pickett was seen and examined at bedside this morning. Overall is doing fairly well. He is not any much pain in the right knee. He says he feels much better. His oxygen saturations have been normal. He has no complaints. Review of Systems All systems reviewed & are unremarkable except as noted in HPI & below. Physical Exam On physical examination of the right knee, the dressing is clean and dry. His leg is out full extension. He has active dorsiflexion plantarflexion of his right ankle.. Results & Data Results & Data Laboratory Results . Diagnostic Findings Postoperative x-rays of the right knee show the prosthesis to be in anatomic alignment without any evidence of fracture, desiccation, or loosening. PG Care Time/CCT Total # of Minutes Spent Total Time Spent with Patient: Total time spent is greater than 50% in coordination of care (as documented) at patient's floor/unit and/or counseling patient: Coding Level of Care Code 87653 Post Operative Follow-Up Diagnoses Status post right knee replacement Z96.651
--- NOTE | 2021-04-30 07:01 | Discharge Summary ---
Date of Service April 30, 2021 Admission HPI (Per Admitting) Piyush is a pleasant 70-year-old male who is been dealing with chronic increasing Right knee pain. X-rays and clinical examination have been diagnostic for advanced osteoarthritis of the Right knee. After failing extensive conservative treatment, he has elected proceed with a right total knee arthroplasty. . Admission Exam (Per Admitting) On physical examination of the right knee, he has a trace effusion. He ambulates with a cane. He has range of motion from 0 to 120 degrees. No instability. He has pain over the distal medial femoral condyle. . Principal Diagnosis Same as "Discharge Diagnosis" noted below under Discharge Instructions. Discharge Exam On physical examination of the right knee, the dressing is clean and dry. His leg is out full extension. He has active dorsiflexion plantarflexion of his right ankle.. Discharge Data Procedures Performed Operation Date: 04/29/21 07:00 Actual Procedures p Right Total Knee Arthroplasty, Cemented(Right) - Gil Gonsales DO Ordered Studies 04/29/21 05:00 US - OR guided needle placemen Routine Hospital Course (1) Status post right knee replacement: On April 29 2021 Piyush arrived at [facility] and underwent a right knee replacement without complication. He had an epidural anesthetic. He was initially part of our outpatient joint protocol. During his recovery period, he was able to get up and ambulate with therapy but he was having significant nausea and hypoxia when at rest. The decision was made to keep him overnight for observation. On postop day #1 he was feeling much better. His oxygen saturations were normal. He was able to participate well with physical therapy doing ambulation and range of motion exercises. He was then discharged home. He will follow-up with orthopedics in 2 weeks. PG Care Time/CCT Total # of Minutes Spent Total Time Spent with Patient: Total time spent is greater than 50% in coordination of care (as documented) at patient's floor/unit and/or counseling patient: Discharge Plan Discharge Items Patient Disposition: Home - Home Health Services Reason For Visit: Degenerative Joint Disease Left Knee Discharge Diagnosis: Left knee replacement Activity: As commented below Non-emergency contact: Surgeon Call non-emergency contact if: your wound has increased redness and your wound has increased drainage Follow-up/Referrals: [facility] [Outside] (as per surgeon's office ) Kaz Rivas MD [Primary Care Provider] - Diet: Regular Addtl Attending Provider Instructions: Activity and Therapy Recommendations: * If you are using [facility] then therapy will be provided at your home until they feel you have accomplished all of your goals. * If you are using [facility] then Physical Therapy will be provided until they feel you are ready to start Outpatient Physical Therapy. * If you are not using home therapy then Outpatient Physical Therapy should start about 3-5 days from your day of surgery. Therapy will last about 6-10 weeks * It is important not to put a pillow under your knee when you are relaxing or sleeping. It is just as important to make sure you are getting your knee perfectly straight as it is to regain your knee bend. * You were shown a series of exercises in the hospital. Do these exercises three times each day including the exercises you were shown in physical therapy. * Get up and walk several times each day. For the first four weeks, try not to stand or walk for more than one hour at a time. If you do stand or walk for more than one hour, you will not hurt anything, but your leg will likely swell. * As you feel comfortable, you may change from the walker or crutches to a cane and then to independent walking. Medications: * Narcotic You will likely be sent home from the hospital with a prescription for the narcotic pain medication that worked best throughout your stay. * Aspirin Most patients will be required to take Aspirin 81mg twice a day for 6 weeks after surgery. This is obtained [id number] and a prescription is not necessary. * Other medications may be prescribed for specific circumstances. If you have any questions, please call the office at . * Resume previous home medications unless otherwise instructed TEDs/Elastic Stockings: The white elastic stockings help limit swelling and prevent blood clots from forming in your legs.~ The more you wear them, the more they work. Wear them for six weeks. Dressing Care: The dressing can be changed after physical therapy on postop day #1. Daily dry dressing changes for a few days, especially if the incision is still draining some. If the incision is not draining then you may leave the parker open to air. If there is a little bit of drainage or if the parker are getting stuck on your clothing then cover the incision with a dry dressing. The parker will be removed at your 2 week follow-up appointment. Showering: You may shower 5 days from the day of surgery as long as the incision is no longer draining. You may shower with the parker exposed. Let soapy water run over the parker and pat them dry. Do not scrub or soak the incision. Things To Watch For: * Drainage from the incision site that occurs more than one week after your surgery. * Increased redness at the incision site. * Fever above 102 degrees Fahrenheit. * Unusual chest pain or shortness of breath. * Call [facility] at with any of the above problems Follow-Up Visit: Follow-up with Dr. Gonsales's PA (Gil Franco) 2-3 weeks after your day of surgery. He will remove your parker and answer any questions. If you have any additional questions or concerns, Dr Gonsales is usually in the office at the same time and will be available An appointment was probably scheduled when you signed-up for surgery in the office. If you have any questions call Office Instructions: More detailed instructions as well as Frequently Asked Questions were provided in a folder by our office when you signed-up for surgery. Please review these instructions when you get home. If you have any further questions or concerns, please feel free to call the office at [phone] Pending Studies at Discharge: No Stand-Alone Forms: Anesthesia/Sedation, Adult, [facility], Smoking Cessation Medications and DC Order Prescriptions: New tramadol 50 mg tablet 50 mg PO Q6H PRN (Reason: pain) Qty: 30 RF: 0 aspirin [Adult Aspirin Regimen] 81 mg tablet,delayed release (DR/EC) 81 mg PO BID Qty: 84 RF: 0 ondansetron 4 mg tablet,disintegrating 4 mg PO Q8H PRN (Reason: nausea and vomiting) Qty: 10 RF: 0 Continued omeprazole 40 mg Capsule,Delayed Release(Dr/Ec) 40 mg PO QAM RF: 0 multivitamin Tablet 1 tab PO QAM RF: 0 atorvastatin 10 mg Tablet 10 mg PO QAM RF: 0 vitamin E 400 unit Capsule 400 unit PO BID RF: 0 sucralfate 1 gram Tablet 1 g PO AC RF: 0 ergocalciferol (vitamin D2) 400 unit Capsule 10 mcg PO QAM RF: 0 meloxicam 15 mg tablet 15 mg PO QAM RF: 0 tamsulosin 0.4 mg Capsule 0.4 mg PO HS RF: 0 acetaminophen 650 mg Tablet Extended Release 1,300 mg PO Q12H PRN (Reason: Pain) RF: 0 Discharge Orders: Discharge Order (Routine); Ordered 04/30/21 Ordered By: Gil Lobo/Other Patient Handouts: DVT Post Op Prevention, Understanding Knee Replacement, Knee Replacement Recovery at Home, Home Safety After Joint Surgery Admission Data Admit Date/Time: 04/29/21 14:24 Attending Provider: Gil Gonsales Admit Provider: Gil Gonsales Primary Care Provider: Kaz Rivas
[2021-04-30] MEDS ORDERED: dexAMETHasone 4 MG TAB PO SCH (08:00)
[2021-04-30] MEDS: SUCRALFATE 1 GM TAB PO SCH (08:04)
[2021-04-30] MEDS: ASPIRIN 81 MG ECTAB PO SCH (08:55)
[2021-04-30] MEDS: DOCUSATE SODIUM 100 MG CAP PO SCH (08:55)
[2021-04-30] MEDS ORDERED: PANTOprazole 40 MG TAB PO SCH (09:00)
[2021-04-30] MEDS ORDERED: ATORVASTATIN 10 MG TAB PO SCH (09:00)
[2021-04-30] MEDS ORDERED: MULTIVITAMIN TAB PO SCH (09:00)
== END 2021-04-30 11:15 | disposition home health service (06) ==
LOC: ASU 05:04 → 3E 05:04

== ENCOUNTER 2023-05-26 12:46 | Observation (INO) ==
--- NOTE | 2023-05-26 13:14 | Emergency Department Note ---
Impression & Plan Atypical chest pain ED Provider Note Provider: Samuel Sepulveda MD DATE OF SERVICE: 05/26/2023 CHIEF COMPLAINT: Chest discomfort, short of breath, sweaty HISTORY OF PRESENT ILLNESS: Patient is a 72-year-old gentleman past medical history of GERD, arthritis, prostate cancer on treatment, and DVT maintained on Eliquis presenting here today via ambulance. 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 Went for a walk as well and began to experience a sharp pain in his left chest as well as some shortness of breath. Became sweaty and bit lightheaded. Experience of numbness and tingling in the left hand. Came home and went to the bathroom and had some diarrhea as well as some dry heaves. Denies abdominal pain. Chest pain and numbness have resolved now. Has been sick for about 6 weeks by his report and had a burst of steroids as well as currently on Augmentin. Denies leg swelling. States compliance with home medication including his Eliquis. No trauma. No syncope. No history of cardiac disease reported. PAST MEDICAL HISTORY: As noted above MEDICATIONS: Reviewed home medications states took morning medicines including Eliquis SOCIAL HISTORY: PHYSICAL EXAM: GENERAL: alert and oriented in no acute distress on stretcher Head: normocephalic and atraumatic EYES: No injection, discharge or icterus. NECK: Trachea midline. ENT: Mucous membranes pink and moist. Pharynx without erythema or exudate. LUNGS: Airway patent. No retractions. Breath sounds clear with good air entry bilaterally. HEART: Regular rate and rhythm. No chest wall tenderness ABDOMEN: Soft and non-tender, without guarding or rebound. SKIN: Acyanotic, warm, dry, without rashes EXTREMITIES: Without swelling, tenderness or deformity NEUROLOGICAL: No focal deficits. No aphasia. No facial droop or slurred speech. Normal strength and tone in the extremities. Sensation to gross touch normal. Ambulatory. EK bpm normal sinus rhythm. No PVC or PAC. No acute ST segment elevation with an incomplete right bundle branch block and a QTc of 427. T wave inversion inferior CONTINUOUS CARDIAC MONITORING: was ordered and showed a heart rate of 60s bpm in normal sinus rhythm Patient's laboratory studies and imaging reviewed. Differential includes Cardiac ischemia, aortic dissection, pulmonary embolism, pneumothorax, pneumonia, pericarditis, myocarditis, esophageal rupture, GERD, cholecystitis, pancreatitis, musculoskeletal, as well as other pathologies. IMPRESSION/MEDICAL DECISION MAKING: Patient with multiple concerning features for possible exertional chest pain. Evidently according to was somewhat wide earlier during episode. Pain is resolved now. EKG without STEMI. Troponin sent. Doubt VTE/PE given his anticoagulation status. Basic blood counts and electrolytes sent. Is on chronic steroids. Chest x-ray completed but I doubt this is pneumonia or primarily pulmonary. No reproducible chest wall pain at this time. Benign abdomen doubt acute intra-abdominal pathology. Does have a respiratory viral panel given his complaint of some URI symptoms ongoing for several weeks. No significant numbness noted on physical exam now and doubt this represents CVA. Blood work without anemia or leukocytosis. No severe electrolyte abnormality. Normal renal function. Nodes of hepatitis or pancreatitis on lab work. Troponin completed and initial here is normal at 8.2. Discussed with patient and family findings. Given the concerning story discussed with him staying for further cardiac evaluation. In shared decision-making patient and were in agreement with this plan. Hospitalist team was contacted. DIAGNOSIS: Atypical chest pain DISPOSITION: Hospitalist will evaluate Patient was agreeable with this plan. Past Med/Surg History Medical History Dyslipidemia GERD (gastroesophageal reflux disease) Gout History of COVID-19 Hypertension Osteoarthritis Prostate cancer Sciatica Surgical History H/O lumbar discectomy H/O shoulder surgery History of arthroscopy of left knee History of cholecystectomy History of colonoscopy History of dental surgery History of esophagogastroduodenoscopy (EGD) History of hand surgery History of prostate biopsy Hx of tonsillectomy Family History Mother Diabetes Other Heart disease No family history of adverse response to anesthesia Social History Smoking Status: Never smoker Second Hand Exposure: Yes (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); Do You Dip or Chew Tobacco: No; Hx Alcohol Use: Yes Alcohol type: hard liquor Hx Substance Use: No Preferred Language: Guatemalan Communication Ability: Effective Fabric Stretcher Required: No Beliefs That Will Affect Care: None Current Living Situation: Spouse current occupational status: retired Feels Safe at Home: Yes Assistive Devices: Walker Allergies Allergies Allergy/AdvReac Type Severity Reaction Status Date / Time levofloxacin [From Levaquin] AdvReac Intermediate Muscle Verified 05/24/22 14:28 Pain, pain to achilles tendon oxycodone AdvReac Intermediate NAUSEA/VOMI Verified 05/24/22 14:28 TING Home Meds Home Medications Medication Instructions Recorded Confirmed omeprazole 40 mg capsule,delayed 40 mg PO DAILYBB 05/03/18 05/24/22 release vitamin E 268 mg (400 unit) capsule 400 unit PO DAILY 02/27/20 05/24/22 sucralfate 1 gram tablet 1 g PO AC 09/13/20 05/24/22 tamsulosin 0.4 mg capsule 0.4 mg PO QAM 03/22/21 05/24/22 acetaminophen 650 mg 1,300 mg PO Q8H PRN Pain 04/29/21 05/24/22 tablet,extended release apixaban 5 mg tablet (Eliquis) 10 mg PO BID 03/16/22 05/24/22 cholecalciferol (vitamin D3) 10 10 mcg PO DAILY 03/16/22 05/24/22 mcg (400 unit) capsule (Vitamin D3) methocarbamol 500 mg tablet 250 - 500 mg PO Q12H PRN MUSCLE 03/16/22 05/24/22 SPASMS [id number] 300 mcg-K 60 1 tab PO DAILY 03/16/22 05/24/22 mcg-lycop 600 mcg-lutein 300 mcg tablet (Centrum Silver Men) rosuvastatin 5 mg tablet 5 mg PO DAILY 03/16/22 05/24/22 tramadol 50 mg tablet 50 mg PO Q8H PRN pain 03/16/22 05/24/22 Previous Rx's Medication Instructions Recorded amoxicillin 500 mg tablet 2,000 mg (4 x 500 mg) PO ONCE PRN 10/31/21 prophylaxis #4 tabs tramadol 50 mg tablet 50 mg PO Q8H PRN pain #30 tabs 03/21/22 tramadol 50 mg tablet 50 mg PO Q6H PRN pain #20 tabs 04/07/22 amoxicillin 500 mg tablet 2,000 mg (4 x 500 mg) PO ONCE #4 08/01/22 tabs amoxicillin 500 mg tablet 2,000 mg (4 x 500 mg) PO ONCE #4 04/05/23 tabs amoxicillin 500 mg tablet 2,000 mg (4 x 500 mg) PO ONCE #4 05/14/23 tabs Results & Data (ED) Vital Signs Vital Signs - 24 hr 05/26/23 12:56 05/26/23 12:56 05/26/23 12:56 Temperature 36.4 C L 36.4 C L Temperature Source Oral Oral Pulse Rate 67 Pulse Rate [Apical] 67 Pulse Rhythm [Apical] Regular Pulse Strength [Apical] Normal Respiratory Rate 17 17 Respiratory Effort / Characteristics Non-Labored Spontaneous Non-Labored Spontaneous Respiratory Depth Normal Normal Blood Pressure 163/94 H Blood Pressure [Right Arm] 163/94 H Blood Pressure Mean 117 Blood Pressure Mean [Right Arm] 117 Blood Pressure Position Semi-fowlers Blood Pressure Position [Right Arm] Semi-fowlers Pulse Oximetry 97 97 97 Oxygen Delivery Method Room Air Room Air Room Air Sepsis Recent Fever Within 48 Hours No Sepsis New/Unexplained Change in Mental Status N/A Sepsis Action Taken by Nursing No Action Required 05/26/23 12:56 Temperature Temperature Source Pulse Rate 66 Pulse Rate [Apical] Pulse Rhythm [Apical] Pulse Strength [Apical] Respiratory Rate Respiratory Effort / Characteristics Respiratory Depth Blood Pressure Blood Pressure [Right Arm] Blood Pressure Mean Blood Pressure Mean [Right Arm] Blood Pressure Position Blood Pressure Position [Right Arm] Pulse Oximetry Oxygen Delivery Method Sepsis Recent Fever Within 48 Hours Sepsis New/Unexplained Change in Mental Status Sepsis Action Taken by Nursing Laboratory Data 05/26/23 12:59 05/26/23 12:59 Lab Results 05/26/23 Range/Units 12:59 WBC 8.95 (4.8-10.8) K/ul RBC 4.87 (4.70-6.10) M/uL Hgb 14.4 (14.0-18.0) g/dl Hct 42.8 (42.0-52.0) % MCV 87.9 (80.0-100.0) fL MCH 29.6 (25.0-34.0) pg MCHC 33.6 (32.0-36.0) g/dL RDW Std Deviation 42.0 (36.4-46.3) fL RDW Coeff of Stef 13.1 (11.5-14.5) % Plt Count 200 (130-400) K/uL MPV 10.2 (9.4-12.4) fL Immature Gran % (Auto) 0.3 % Neut % (Auto) 88.9 % Lymph % (Auto) 5.5 % [place] % (Auto) 4.8 % Eos % (Auto) 0.2 % Baso % (Auto) 0.3 % Neut # (Auto) 7.95 H (1.40-6.50) K/uL Lymph # (Auto) 0.49 L (1.20-3.40) K/uL [place] # (Auto) 0.43 (0.11-0.59) K/uL Eos # (Auto) 0.02 (0.00-0.50) K/uL Baso # (Auto) 0.03 (0.00-0.20) K/uL Immature Gran # (Auto) 0.03 (0.01-0.20) K/uL Sodium 138 (136-145) mmol/L Potassium 4.3 (3.5-5.1) mmol/L Chloride 104 (98-107) mmol/L Carbon Dioxide 27 (21-32) mmol/L Anion Gap 7 (3-11) BUN 20 (6-23) mg/dl Creatinine 0.78 (0.6-1.4) mg/dl Est Cr Clr Drug Dosing Not Reportable Est GFR ( Amer) 104.5 ml/min Est GFR (Non-Af Amer) 90.2 ml/min BUN/Creatinine Ratio 25.6 H (10-20) Glucose 113 H (70-99(Fasting)) mg/dl Calcium 9.4 (8.6-10.3) mg/dl Total Bilirubin 0.7 (0.2-1.0) mg/dl AST 21 (13-39) U/L ALT 12 (7-52) U/L Alkaline Phosphatase 70 (34-104) U/L Troponin I High Sens 8.2 (0-20) pg/ml Total Protein 7.0 (6.0-8.3) gm/dl Albumin 4.0 (3.4-5.0) gm/dl Globulin 3.0 (2.5-4.0) gm/dl Albumin/Globulin Ratio 1.3 (0.9-2) Lipase 35 (11-82) U/L Administered Medications Discontinued Medications Aspirin (Aspirin Chew 324 Mg) 324 mg PO NOW STA Stop: 05/26/23 13:13 Last Admin: 05/26/23 13:23 Dose: 324 mg Documented By: [facility] Imaging Data Radiologist's Impression: Chest X-Ray 05/26/23 13:10 XR chest 1V portable CLINICAL HISTORY: Chest pain, nonspecific COMPARISON STUDY: Chest CT March 03, 2020. Chest radiograph April 29, 2021. FINDINGS: Lung volumes are normal. Lungs are clear. There is no pneumothorax or pleural effusion. Cardiac size is stable. Mediastinal contours are normal. There is no evidence for pulmonary edema. IMPRESSION: No acute cardiopulmonary findings. ACT 112: Negative or not required by law. Electronically signed by: Marcio Steward M.D. 05/26/2023 1:53 PM Discharge Plan Visit Data Chief Complaint: Chest Pain Stated Complaint: SOB, CHEST PAIN ED Provider: Samuel Sepulveda Discharge Problem: Atypical chest pain Patient Disposition: Being Evaluated by Hospitalist Forms Stand Alone Forms: [facility] Prescriptions Prescriptions: No Action amoxicillin 500 mg tablet 2,000 mg PO ONCE PRN (Reason: prophylaxis) Qty: 4 2RF Rx Instructions: ONE HOUR PRIOR TO DENTAL PROCEDURE tramadol 50 mg tablet 50 mg PO Q6H PRN (Reason: pain) Qty: 20 0RF amoxicillin 500 mg tablet 2,000 mg PO ONCE Qty: 4 3RF Rx Instructions: 4 tabs 1 hour prior to procedure amoxicillin 500 mg tablet 2,000 mg PO ONCE Qty: 4 3RF Rx Instructions: 4 tabs 1 hour prior to procedure amoxicillin 500 mg tablet 2,000 mg PO ONCE Qty: 4 3RF Rx Instructions: 4 tabs 1 hour prior to procedure tramadol 50 mg tablet 50 mg PO Q8H PRN (Reason: pain) Qty: 30 0RF omeprazole 40 mg Capsule,Delayed Release(Dr/Ec) 40 mg PO DAILYBB vitamin E 400 unit Capsule 400 unit PO DAILY sucralfate 1 gram Tablet 1 g PO AC methocarbamol 500 mg tablet 250 - 500 mg PO Q12H PRN (Reason: MUSCLE SPASMS) cholecalciferol (vitamin D3) [Vitamin D3] 10 mcg (400 unit) Capsule 10 mcg PO DAILY rosuvastatin 5 mg Tablet 5 mg PO DAILY Centrum Silver Men 300-600-300 mcg Tablet 1 tab PO DAILY Eliquis 5 mg tablet 10 mg PO BID Rx Instructions: STARTED 03/15/22, 10 MG BID X 1 WEEK, THEN 5 MG BID. tramadol 50 mg tablet 50 mg PO Q8H PRN (Reason: pain) tamsulosin 0.4 mg Capsule 0.4 mg PO QAM acetaminophen 650 mg Tablet Extended Release 1,300 mg PO Q8H PRN (Reason: Pain) Referrals Referrals: Kaz Rivas MD [Primary Care Provider] -
[2023-05-26] MEDS: ASPIRIN CHEW 324 MG PO STA (13:23)
--- NOTE | 2023-05-26 13:41 | Electrocardiogram Report ---
Test Reason : Blood Pressure : / mmHG Vent. Rate : 064 BPM Atrial Rate : 064 BPM P-R Int : 158 ms QRS Dur : 102 ms QT Int : 414 ms P-R-T Axes : 035 -17 017 degrees QTc Int : 427 ms Normal sinus rhythm Incomplete right bundle branch block Possible Anterior infarct , age undetermined Abnormal ECG When compared with ECG of 04-APR-2021 10:03, T wave inversion now evident in Inferior leads Confirmed by Umair Oleary ([id number]) on 05/26/2023 1:41:17 PM Referred By: Confirmed By:Umair Oleary
[2023-05-26 13:44] LABS: Basophils # (auto) 0.03 K/uL (0.00-0.20); Basophils % (auto) 0.3 %; Eosinophils # (auto) 0.02 K/uL (0.00-0.50); Eosinophils % (auto) 0.2 %; Hematocrit (blood only) 42.8 % (42.0-52.0); Hemoglobin 14.4 g/dl (14.0-18.0); Immature Granulocytes # (auto) 0.03 K/uL (0.01-0.20); Immature Granulocytes % (auto) 0.3 %; Lymphocytes # (auto) 0.49 K/uL (1.20-3.40); Lymphocytes % (auto) 5.5 %; Mean Corpuscular Hemoglobin 29.6 pg (25.0-34.0); Mean Corpuscular Hgb Conc 33.6 g/dL (32.0-36.0); Mean Corpuscular Volume 87.9 fL (80.0-100.0); Mean Platelet Volume 10.2 fL (9.4-12.4); Monocytes # (auto) 0.43 K/uL (0.11-0.59); Monocytes % (auto) 4.8 %; Neutrophils # (auto) 7.95 K/uL (1.40-6.50); Neutrophils % (auto) 88.9 %; Platelet Count 200 K/uL (130-400); RDW Coefficient of Variation 13.1 % (11.5-14.5); Red Blood Count 4.87 M/uL (4.70-6.10); White Blood Count 8.95 K/ul (4.8-10.8)
[2023-05-26 13:54] LABS: Alanine Aminotransferase 12 U/L (7-52); Albumin Globulin Ratio 1.3 (0.9-2); Alkaline Phosphatase 70 U/L (34-104); Anion Gap 7 (3-11); Aspartate Aminotransferase 21 U/L (13-39); BUN Creatinine Ratio 25.6 (10-20); Bilirubin,Total 0.7 mg/dl (0.2-1.0); Blood Urea Nitrogen 20 mg/dl (6-23); Calcium 9.4 mg/dl (8.6-10.3); Carbon Dioxide 27 mmol/L (21-32); Chloride 104 mmol/L (98-107); Est GFR (African American) 104.5 ml/min; Est GFR (Non-African American) 90.2 ml/min; Glucose 113 mg/dl (70-99(Fasting)); Lipase 35 U/L (11-82); Potassium 4.3 mmol/L (3.5-5.1); Sodium 138 mmol/L (136-145)
--- NOTE | 2023-05-26 13:55 | XRay Report ---
XR chest 1V portable CLINICAL HISTORY: Chest pain, nonspecific COMPARISON STUDY: Chest CT March 03, 2020. Chest radiograph April 29, 2021. FINDINGS: Lung volumes are normal. Lungs are clear. There is no pneumothorax or pleural effusion. Car diac size is stable. Mediastinal contours are normal. There is no evidence for pulmonary edema. IMPRESSION: No acute cardiopulmonary findings. ACT 112: Negative or not required by law. Electronically signed by: Marcio Steward M.D. 05/26/2023 1:53 PM
[2023-05-26 14:01] LABS: Troponin I High Sensitivity 8.2 pg/ml (0-20)
[2023-05-26 14:42] LABS: Adenovirus PCR Not Detected (NotDetected); Bordetella parapertussis PCR Not Detected (NotDetected); Bordetella pertussis PCR Not Detected (NotDetected); Chlamydia pneumoniae PCR Not Detected (NotDetected); Coronavirus 229E PCR Not Detected (NotDetected); Coronavirus CoV-2 (COVID19)PCR Not Detected (NotDetected); Coronavirus HKU1 PCR Not Detected (NotDetected); Coronavirus NL63 PCR Not Detected (NotDetected); Coronavirus OC43PCR Not Detected (NotDetected); Human Metapneumovirus PCR Not Detected (NotDetected); Influenza A PCR Not Detected (NotDetected); Influenza B PCR Not Detected (NotDetected); Mycoplasma pneumoniae PCR Not Detected (NotDetected); Parainfluenza Virus 1 PCR Not Detected (NotDetected); Parainfluenza Virus 2 PCR Not Detected (NotDetected); Parainfluenza Virus 3 PCR Not Detected (NotDetected); Parainfluenza Virus 4 PCR Not Detected (NotDetected); Respiratory Syncytial VirusPCR Not Detected (NotDetected); Rhinovirus/Enterovirus PCR Not Detected (NotDetected)
--- NOTE | 2023-05-26 14:47 | History & Physical Report ---
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 In ER afebrile, vitals stable Initial troponin:8.2 EKG: sinus rhythm, rate 64, incomplete RBBB. T wave inversion per my interpretation. Incomplete RBBB seen on prior EKG R/O ACS. Risk factors: HTN, hyperlipidemia, age No current CP or SOB or other symptoms Monitor Vitals Repeat EKG in am Will trend troponin Echo Lipid panel in am On Eliquis and will continue Aspirin Previously on rosuvastatin 5mg daily but patient self stopped. Will resume Cardiology consult (2) Hypertension: Plan: Not on medications BP stable Monitor (3) Dyslipidemia: Plan: Previously on rosuvastatin and self stopped Lipid panel in am (4) Prostate cancer: Plan: History prostate CA with metastasis to abdominal lymph nodes and spine S/P radiation On Zytiga, leuprolide, chronic prednisone 5mg daily, tamsulosin (5) GERD (gastroesophageal reflux disease): Plan: Continue PPI, Carafate (6) History of DVT (deep vein thrombosis): Plan: History LLE DVT in 2021 Continue Eliquis DVT Prophylaxis On Eliquis Full code as per discussion with pt Follows with Dr Rivas for routine care Pt was seen and care coordinated with Dr Alarcon. See addendum I spent a total of 75 minutes reviewing notes, outpatient records, labs, medication, coordinating, documenting and providing care for this patient excluding time spent in the performance of separately billed services. History of Present Illness Chief Complaint: CP Primary Care Provider: Kaz Rivas MD Patient is 72-year-old male with PMH HTN, dyslipidemia, prostate cancer with metastasis to vertebrae, abdominal lymph nodes, history DVT presented to ER with c/o chest pain today. History obtained from patient and patient's and outpatient chart review. Patient states that he usually walks 30 minutes for approximately 2 miles in mornings and last week after walking he had some left chest discomfort that resolved after rest. Today was walking and then cut wood with chain saw for 30 minutes. Once got home had nausea, dry heaves, diarrhea, diaphoresis, lightheaded, SOB and left chest pain. Describes chest pain as dull discomfort that was non-radiating, rating 2/10. Also states had some paresthesias left wrist and fingers. States symptoms seemed to ease up after resting. States did notice significant abdominal pain. Had some mild BENTLEY. Denies any symptoms currently. Patient states has had sinus pressure, congestion, sore throat and cough that started 6 weeks ago. States cough was productive and just finished Augmentin and prednisone. 05/15/2023 respiratory panel positive influenza A PCR. Reports congestion and cough symptoms improved. States BENTLEY has since resolved after eating in the ER. Denies fever/chills, hematemesis, hematochezia, melena, syncope, vision changes, neck pain, orthopnea, palpitations, abdominal pain, paresthesias, weakness, extremity weakness, extremity edema, rashes, urinary symptoms. Allergies Allergy/AdvReac Type Severity Reaction Status Date / Time levofloxacin [From Levaquin] AdvReac Intermediate Muscle Verified 05/24/22 14:28 Pain, pain to achilles tendon oxycodone AdvReac Intermediate NAUSEA/VOMI Verified 05/24/22 14:28 TING Home Medications Medication Instructions Recorded Confirmed Type omeprazole 40 mg capsule,delayed 40 mg PO DAILYBB 05/03/18 05/26/23 History release sucralfate 1 gram tablet 1 g PO AC 09/13/20 05/26/23 History tamsulosin 0.4 mg capsule 0.4 mg PO PM 03/22/21 05/26/23 History acetaminophen 650 mg 650 mg PO Q8H PRN Pain 04/29/21 05/26/23 History tablet,extended release amoxicillin 500 mg tablet 2,000 mg (4 x 500 mg) PO ONCE PRN 10/31/21 05/26/23 Rx prophylaxis #4 tabs apixaban 5 mg tablet (Eliquis) 5 mg PO BID 03/16/22 05/26/23 History wojloima-pl-gypre 300 mcg-K 60 1 tab PO DAILY 03/16/22 05/26/23 History mcg-lycop 600 mcg-lutein 300 mcg tablet (Centrum Silver Men) abiraterone 250 mg tablet (Zytiga) 250 mg PO QAM 05/26/23 05/26/23 History calcium carbonate 600 mg-vitamin 1 tab PO DAILY 05/26/23 05/26/23 History D3 10 mcg (400 unit) tablet (Calcium 600 + D(3)) prednisone 5 mg tablet 5 mg PO DAILY 05/26/23 05/26/23 History Past Med/Surg History Medical History (Updated 05/26/23 @ 15:42 by Adelaide Peres PA-C) History of DVT (deep vein thrombosis) Sciatica Radiation to right LE Hypertension BORDERLINE , NO MEDS FOR Dyslipidemia History of COVID-19 DX'ED MAR 22, 2021 - had post nasal drip, headache, body aches - resolved Osteoarthritis GERD (gastroesophageal reflux disease) Aggravated by recent Covid infection Prostate cancer Dx 1997; h/o radiation COURSE OF LUPRON COMPLETED Gout HX Surgical History History of hand surgery RIGHT CARPAL TUNNEL History of dental surgery History of prostate biopsy History of esophagogastroduodenoscopy (EGD) History of colonoscopy History of arthroscopy of left knee X 2 H/O shoulder surgery left H/O lumbar discectomy History of cholecystectomy Hx of tonsillectomy Family History (Updated 05/26/23 @ 15:40 by Adelaide Peres PA-C) Mother Diabetes Other Cancer Heart disease No family history of adverse response to anesthesia Social History Smoking Status: Never smoker Second Hand Exposure: Yes (AT WORK-[employer] RETIRED); Do You Dip or Chew Tobacco: No; Hx Alcohol Use: Yes Alcohol type: hard liquor Hx Substance Use: No Preferred Language: Sinhala Communication Ability: Effective Master Ocean Required: No Beliefs That Will Affect Care: None Current Living Situation: Spouse current occupational status: retired Feels Safe at Home: Yes Assistive Devices: Walker Review of Systems Review of Systems: All systems reviewed & are unremarkable except as noted in HPI & below Physical Exam Physical Exam: PE per Dr Alarcon Results & Data Results & Data Vital Signs (Past 12 Hours) Vital Signs Temp Pulse Pulse Resp BP BP Pulse Ox 05/26/23 12:56 66 05/26/23 12:56 36.4 C L 67 17 163/94 H 97 05/26/23 12:56 97 05/26/23 12:56 36.4 C L 67 17 163/94 H 97 O2 Del Method 05/26/23 12:56 03/16/24 12:56 Room Air 05/26/23 12:56 Room Air 05/26/23 12:56 Room Air Laboratory Results Short CBC 05/26/23 Range/Units 12:59 WBC 8.95 (4.8-10.8) K/ul Hgb 14.4 (14.0-18.0) g/dl Hct 42.8 (42.0-52.0) % Plt Count 200 (130-400) K/uL BMP 05/26/23 12:59 Sodium 138 Potassium 4.3 Chloride 104 Carbon Dioxide 27 BUN 20 Creatinine 0.78 Glucose 113 H Calcium 9.4 Liver Function 05/26/23 Range/Units 12:59 Total Bilirubin 0.7 (0.2-1.0) mg/dl AST 21 (13-39) U/L ALT 12 (7-52) U/L Alkaline Phosphatase 70 (34-104) U/L Albumin 4.0 (3.4-5.0) gm/dl Diagnostic Findings Chest X-Ray 05/26/23 13:10 XR chest 1V portable CLINICAL HISTORY: Chest pain, nonspecific COMPARISON STUDY: Chest CT March 03, 2020. Chest radiograph April 29, 2021. FINDINGS: Lung volumes are normal. Lungs are clear. There is no pneumothorax or pleural effusion. Cardiac size is stable. Mediastinal contours are normal. There is no evidence for pulmonary edema. IMPRESSION: No acute cardiopulmonary findings. ACT 112: Negative or not required by law. Electronically signed by: Marcio Steward M.D. 05/26/2023 1:53 PM ECG Additional Comments: sinus rhythm, rate 64, incomplete RBBB. T wave inversion per my interpretation. Incomplete RBBB seen on prior EKG Supervising Physician Co-Signing Physician Notes Pt seen and examined with ALEXI Peres, at bedside. Mr. Aponte is 72-year-old male with PMHx (per chart) of HTN, HLP, prostate cancer with metastasis to vertebrae and abdominal lymph nodes (on chemotherapy and chronic steroids), vertebral fx x 10 after falling from a tree stand, and history DVT on AC. He presented with c/o Left sided chest pain that initially occurred with exertion but later with rest. Workup here has been unrevealing thus far. Patient usually walks about 2 miles in 30 minutes in the morning. Last week after walking he had some left chest discomfort that resolved after rest. Today was walking and developed mild chest discomfort that again resolved with rest. He then cut wood with a chain saw for 30 minutes. Once he got home he developed diarrhea. While defecating he developed nausea, dry heaves, diaphoresis, BENTLEY and lightheadedness followed by SOB and left chest pain. Chest pain is described as located in the left side, non-radiating, dull, and rated at worst as 2/10. He also had some paresthesias involving the left wrist and fingers. These symptoms came on during a period of rest and resolved without intervention. At the time of my exam he has some lingering chest discomfort and no other symptoms. Mr. Aponte reports about 6 seeks of sinus symptoms for which he just completed abx. Symptoms consisted of sinus pressure, congestion, sore throat and cough productive of white to yellow phlegm. 05/15/2023 respiratory panel positive influenza A PCR. He has no other complaints. Remaining 12 pot ROS is reviewed and negative. physical exam General: NAD, obese, well nourished, non-toxic appearing Head: NC AT Eyes: anicteric sclera, no conjunctival injection. Yellow eye lids (no other e/o jaundice). Per chronic x years. Nose: nares patent Mouth: MMM Neck: supple, trachea midline CV: RRR S1 S2 Pulm: CTA b/l Abd/GI: + BS, soft, NT, ND, no guarding Ext: no pretibial edema. dorsalis pedis intact b/l MSK: normal bulk and tone Neuro: no focal deficits. moving all 4 extremities symmetrically Psych: pleasant mood and affect Skin: visible skin is warm, dry, and without rash. Pt not fully undressed for exam. # CP: c/f unstable angina ST depressions on EKG new from prior initial trop wnl, f/u serial trop, monitor on EKG f/u echo cardiology consult for possible stress test # HTN: stable off of antihypertensives # HLP: f/u lipid panel # GERD/PUD: continue PPI, sucralfate # prostate ca: Zytiga, prednisone # Code: confirmed with pt and , Full code Rest per attested note above
[2023-05-26] MEDS ORDERED: POLYETHYLENE (MIRALAX) 17 GM PACK PO PRN (17:16)
[2023-05-26] MEDS ORDERED: ONDANSETRON INJ 2 MG/ML 2 ML VIAL IV PRN (17:16)
[2023-05-26] MEDS ORDERED: ACETAMINOPHEN 325 MG TAB PO PRN (17:16)
--- OUTSIDE RECORDS SUMMARY | 2023-05-26 18:08 | External Medical Summary | Summary of Care ---
Author Name Unknown Organization [facility] Address [address] [place] [address] Phone [phone] Care Team Providers Care President And Chief Executive Officer Name Role Phone Evelyn FRANZ MD, Kaz Canela Primary Care Provider [phone] Reason for Visit * Reason Comments Outpatient Testing Encounter Details Date Type Department Care Team (Late st Contact Info) Description 05/22/2023 4:30 PM EDT Laboratory Laboratory [facility] [place] [address] [place] [phone] Jonancy, Lab Scenery [address] [place] [address] Malignant neoplasm of prostate (HCC) Allergies Active Allergy Reactions Criticality Noted Date Comments Levofloxacin Muscle pain 02/07/2018 Oxycodone Nausea/vomiting 02/07/2018 documented as of this encounter (statuses as of 05/22/2023) Medications Medication Sig Dispensed Refills Start Date End Date Status Multiple Vitamins-Minerals (CENTRUM SILVER 50+MEN) TABS Take by mouth. 0 Active Acetaminophen ER 650 MG Oral Tablet Extended Release Take 1 Tablet by mouth every 8 hours as needed for Pain, Severe. 30 Tablet 0 04/06/2021 Active Rosuvastatin Calcium 5 MG Oral Tablet (Crestor) Take by mouth 1 Tablet in the morning. 90 Tablet 11 10/05/2021 Active Additional Information Patient not taking.Reported on 11/06/2022 traMADol HCl 50 MG Oral Tablet (Ultram)Indications :Closed nondisplaced fracture of first cervical vertebra with delayed healing, unspecified fracture morphology, subsequent encounter,Closed fracture of second lumbar vertebra with routine healing, unspecified fracture morphology, subsequent encounter,Compressi on fracture of body of thoracic vertebra (HCC) Take 1 Tablet (50 mg) by mouth every 8 hours as needed for Pain, Severe. 20 Tablet 0 02/16/2022 Active Additional Information Patient not taking.Reported on 06/16/2022 Methocarbamol 500 MG Oral Tablet (Robamol) Take 1 Tablet by mouth 2 times a day as needed for Muscle spasms. 0 Active Naproxen 500 MG Oral Tablet (Naprosyn) Take 1 Tablet by mouth 2 times a day with morning and evening meals. With food 14 Tablet 1 06/09/2022 Active Additional Information Patient not taking.Reported on 12/12/2022 Ondansetron HCl 8 MG Oral TabletIndications:M etastatic malignant neoplasm to prostate (HCC),Nausea Take 1 Tablet by mouth every 8 hours as needed for Nausea. 50 Tablet 0 06/16/2022 Active Sucralfate 1 GM Oral Tablet (Carafate)Indicatio ns:Gastritis TAKE 1 TABLET 1 HOUR BEFOREMEALS AND AT BEDTIME, DISSOLVE IN WATER 120 Tablet 5 08/22/2022 Active Eligard 22.5 MG Subcutaneous Kit (Leuprolide Acetate (3 Month))Indications: Metastatic malignant neoplasm to prostate (HCC) Inject 22.5 mg under the skin every 3 months for 4 doses. 4 Kit 0 10/03/2022 07/01/2023 Active Omeprazole 40 MG Oral Capsule Delayed Release (PriLOSEC)Indicatio ns:Reflux esophagitis,Gastrit is without bleeding, unspecified chronicity, unspecified gastritis type TAKE 1 CAPSULE DAILY 1 HOURBEFORE THE FIRST MEAL OF THE DAY 90 Capsule 2 10/27/2022 Active predniSONE 5 MG Oral Tablet (Deltasone)Indicati ons:Malignant neoplasm of prostate (HCC) Take 1 tablet by mouth in the morning. 30 Tablet 5 11/21/2022 Active Calcium 600+D Plus Minerals 600-400 MG-UNIT Oral Tablet ChewableIndications :Malignant neoplasm of prostate (HCC) Take 2 Tablets by mouth in the morning. 60 Tablet 2 11/22/2022 Active Abiraterone Acetate 250 MG Oral Tablet (Zytiga)Indications :Malignant neoplasm of prostate (HCC) Take 1 tablet by mouth in the morning. Take with food. 30 Tablet 5 12/12/2022 Active Tamsulosin HCl 0.4 MG Oral Capsule (Flomax)Indications :in evening Take 1 Capsule by mouth in the morning. 90 Capsule 3 05/02/2023 Active Apixaban 5 MG Oral Tablet (Eliquis) TAKE 1 TABLET TWICE A DAY 180 Tablet 1 05/14/2023 Active predniSONE 10 MG Oral Tablet (Deltasone) Take 5 tabs for 2 days, 4 tabs for 2 days, 3 tabs for 2 days, 2 tabs for 2 days 1 tab for 2 days 30 Tablet 0 05/15/2023 Active Amoxicillin-Pot Clavulanate 875-125 MG Oral Tablet (Augmentin)Indicati ons:URTI (acute upper respiratory infection),Acute maxillary sinusitis, recurrence not specified Take 1 Tablet by mouth in the morning and 1 Tablet before bedtime. Do all this for 10 days. 20 Tablet 0 05/15/2023 05/25/2023 Active documented as of this encounter (statuses as of 05/22/2023) Active Problems Problem Noted Date Diagnosed Date TANYA (acute kidney injury) 03/23/2023 Nausea 03/23/2023 Compression fracture of body of thoracic vertebr a 04/20/2022 Carpal tunnel syndrome, bilateral 03/16/2022 Gastroesophageal reflux disease 03/16/2022 Closed nondisplaced fracture of first cervical vertebra with delayed healing 02/16/2022 Closed fracture of second hasmukh mbar vertebra with routine healing 02/16/2022 History of 2019 novel coronavirus disease (COVID -19) 06/14/2020 Pseudogout 02/17/2019 Malignant neoplasm of prostate 07/16/2018 HTN, goal below 140/90 05/10/2016 Lymphedema of left lower extremity 04/25/2016 Deviated nasal septum 02/11/2016 Special screening for malignant neoplasms, colon 04/15/2003 Overview: Colonoscopy 03/02/06--hyperplastic polyps--repeat 5 years Family history of other cardiovascular diseases 04/15/2003 Overview: ICD-10 update of inactive term Dyslipidemia, goal LDL below 130 04/15/2003 FAM HX-DIABETES MELLITUS 05/30/2001 Reflux esophagitis Dyslipidemia documented as of this encounter (statuses as of 05/22/2023) Resolved Problems Problem Noted Date Diagnosed Date Resolved Date Supraclavicular lymphadenopathy 02/11/2016 01/02/2018 Screening for prostate cancer 04/15/2003 05/20/2008 Overview: Resolved per Screening Diagnosis Protocol #6 Acute cholecystitis 11/25/2002 05/07/19 19 Diaphragmatic hernia 019 documented as of this encounter (statuses as of 05/22/2023) Immunizations Name Administration Dates Next Due COVID-19 mRNA, LNP-s, No Pre serve, 2-Dose Series (Moderna) 05/21/2020,04/23/2020 COVID-19, LNP-s, No Preserve , Rodriguez-sucrose, Ages 12+ (Pfizer) 04/06/2021 Pneumococcal Conjugate Vacc, 13 Valent (Prevnar) 01/12/2016 Pneumococcal Polysaccharide PPV23 (Pneumovax) 01/02/2018 Season Influenza, Quad, PF, Adjuvanted, 65+ Yrs, IM (FLUAD) 12/18/2019 Seasonal Influenza, PF, 6 M & above, IM , (FluLaval or Fluzone) 11/22/2018,01/02/2018 Seasonal Influenza, Quadriva lent Hd (Fluzone Hd) 01/11/2022 Seasonal Influenza, Quadriva lent, No Preserve, IM 01/12/2016 Seasonal Influenza, Split, I IV3, With Preserve, Inj 04/17/2014,01/27/2013,11/27/2008,01/15 Seasonal Influenza, Trivalen t, High Dose, No Preserve, IM 12/01/2016 TDAP (age 11 and older)(Adacel) 08/25/2010 Varicella Zoster Vaccine (Adult) 11/30/2011 Zoster Vaccine Recombinant (Shingrix) 12/29/2019 ,10/24/2019 documented as of this encounter Social History Tobacco Use Types Packs/Day Years Used Date Smoking Tobacco: Never Passive Smoke Exposure: Never Smokeless Tobacco: Never Alcohol Use Standard Drinks/Week Comments No 0 (1 standard drink = 0.6 oz pur e alcohol) AUDIT-C Answer Date Recorded Frequency of Alcohol Consumption Never 06/13/2018 Average Number of Drinks Not on file 019 Frequency of Binge Drinking Not on file 06/2018 PHQ-2 Answer Date Recorded PHQ-2 Score 0 01/03/2019 Hunger Vital Sign Answer Date Recorded Within the past 12 months, y ou worried that your food would run out before you got the money to buy more. Never true 10/03/19 22 Within the past 12 months, t he food you bought just didn't last and you didn't have money to get more. Never true 10/02/2021 Sex and Gender Information Value Date Recorded Sex Assigned at Male 01/03/2019 1:25 PM EDT Gender Identity Male 01/03/2019 1:25 PM EDT Sexual Orientation Straight 01/03/2019 1: 25 PM EDT Job Start Date Occupation Industry Not on file Not on file Not on file documented as of this encounter Plan of Treatment Upcoming Encounters Date Type Department Care Team (Late st Contact Info) Description 05/23/2023 9:30 AM EDT Pharmacy Pharmacy Hematology Oncology [facility] [address] [place] [address] [facility], [facility] Hem/Onc [address] [place] [address] 05/31/2023 9:40 AM EDT Office Visit Family Practice [facility] [place] [address] [facility] [place] [address] Kaz Rivas III, MD [address] [facility] [place] [address] 06/22/2023 1:20 PM EDT Laboratory Laboratory [facility] [place] [address] [facility] [place] [phone] Jonancy Lab [address] [place] [address] 06/22/2023 2:30 PM EDT Telemedicine Hematology/Oncology, [address] [phone] Stan Parra MD [address] [place] [address] Cart, Telemed [facility] Hem Onc Clinic [address] [facility] [place] [address] 06/22/2023 3:00 PM EDT Immunization/Injection Hematology/Oncology Treatment, [facility] [address] [place] [address] [facility], Chair10 Hem Onc [address] [facility] [place] [address] 11/06/2023 9:45 AM EDT Imaging Radiology [facility] 1st [facility], [place] [address] [facility] [place] [address] 11/14/2023 1:00 PM EDT Office Visit Radiation Oncology, [facility] [address] [place] [address] Crescencio Obrien MD [address] [facility] [address] Pending Results Name Type Priority Associated Diagnoses Date /Time COMPREHENSIVE METABOLIC PANEL Lab STAT Malignant neoplasm of prostate (HCC) 05/22/2023 2:38 PM EDT PSA Lab STAT Malignant neoplasm of prostate (HCC) 05/22/2023 2:38 PM EDT Scheduled Procedures Name Priority Associated Diagnoses Date/Ti me COLONOSCOPY FLEXIBLE PROXIMA L DIAGNOSTIC Recall History of colonic polyps Health Maintenance Due Date Last Done Comments Depression Screening 01/04/2020 01/03/2019 DTaP,Tdap,and Td Vaccines (2 - Td or Tdap) 08/25/2020 08/25/2010 COVID-19 Vaccine ( season) 2022 04/06/2021, 05/21/2020, 04/23/2020 Influenza Vaccine (FLU shot) (#1) 2022 01/11/2022, 12/18/2019, 11/22/2018, Additional history exists GFR 04/23/2024 04/23/2023, 03/13, 03/21/2023, Additional history exists Albumin/Creatinine Ratio 10/05/2024 10/05/2021 COLONOSCOPY-EVERY 5 YRS AGES 18-100 08/17/2026 08/17/2021, 08/17/2021, 03/09/2016, Additional history exists Lipid Panel 12/12/2027 12/11/2022, 0205/2022, 03/21/2021, Additional history exists Pneumococcal Vaccine: 65+ Years Completed 01/02/2018, 01/12/2016 Zoster Vaccines Completed 12/29/2019, 10/10, 11/30/2011 GARDASIL-HPV IMMUNIZATION SERIES Aged Out No longer eligible based on patient's age to complete this topic Hepatitis B Aged Out No longer eligi ble based on patient's age to complete this topic MENINGOCOCCAL (MENACTRA/MENVEO) Aged Out No longer eligible based on patient's age to complete this topic documented as of this encounter Medical Devices Not on filedocumented as of this encounter Procedures Procedure Name Priority Date/Time Associated Diagnosis Comments DIFFERENTIAL, AUTOMATED STAT 05/22/2023 2:38 PM EDT Malignant neoplasm of prostate (HCC) CBC STAT 05/22/2023 2:38 PM EDT Malignant neoplasm of prostate (HCC) CBC STAT 05/22/2023 2:38 PM EDT Malignant neoplasm of prostate (HCC) documented in this encounter Results * (ABNORMAL) DIFFERENTIAL, AUTOMATED (05/22/2023 2:38 PM EDT) WBC 5.13 4.00 - 10.80 K/uL 05/22/2023 2:45 PM EDT LABORATORY [facility] 56-02 Neutrophils % 85.4(H) 40.0 - 75.0 % 05/22/2023 2:45 PM EDT LABORATORY [facility] 56-02 Lymphocytes % 10.3(L) 18.0 - 42.0 % 05/22/2023 2:45 PM EDT LABORATORY [facility] 56-02 Monocytes % 4.3 1.0 - 11.0 % 05/22/2023 2:45 PM EDT LABORATORY [facility] 56-02 Eosinophils % 0.0 0.0 - 6.0 % 05/22/2023 2:45 PM EDT [facility] Basophils % 0.0 0.0 - 2.0 % 05/22/2023 2:45 PM EDT [facility] Absolute Neutrophils 4.38 1.80 - 7.70 K/uL 05/22/2023 2:45 PM EDT [facility] Absolute Lymphocytes 0.53(L) 1.00 - 4.80 K/ul 05/22/2023 2:45 PM EDT [facility] Absolute Monocytes 0.22 0.00 - 1.10 K/uL 05/22/2023 2:45 PM EDT [facility] Absolute Eosinophils 0.00 0.00 - 0.70 K/uL 05/22/2023 2:45 PM EDT [facility] Absolute Basophils 0.00 0.00 - 0.20 K/uL 05/22/2023 2:45 PM EDT [facility] Blood Venous blood specimen / Unknown Venipuncture / Unknown 05/22/2023 2:38 PM EDT 05/22/2023 2:38 PM EDT Stan Parra MD LAB BLOOD O RDERABLES [facility] [address] [place] [id number] * (ABNORMAL) CBC (05/22/2023 2:38 PM EDT) WBC 5.13 4.00 - 10.80 K/uL 05/22/2023 2:45 PM EDT [facility] RBC 4.65 4.50 - 5.25 M/uL 05/22/2023 2:45 PM EDT [facility] HGB 13.5(L) 14.0 - 16.8 g/dL 05/22/2023 2:45 PM EDT [facility] HCT 41.1 40.0 - 48.4 % 05/22/2023 2:45 PM EDT [facility] MCV 88.4 82.0 - 99.5 fL 05/22/2023 2:[address]T [address] MCH 29.0 27.0 - 34.0 pg 05/22/2023 2:45 PM EDT [address] MCHC 32.8 32.0 - 36.0 g/dL 05/22/2023 2:45 PM EDT [address] RDW 13.5 11.5 - 15.5 % 05/22/2023 2:[address] PM EDT [address] PLT 209 140 - 400 K/uL 05/22/2023 2:45 PM EDT [address] MPV 9.8 6.6 - 11.1 fL 05/22/2023 2:45 PM EDT [address] Blood Venous blood specimen / Unknown Venipuncture / Unknown 05/22/2023 2:38 PM EDT 05/22/2023 2:38 PM EDT Stan Parra MD LAB BLOOD O RDERABLES [place] [address] [address] [place] [address] documented in this encounter Visit Diagnoses Diagnosis Malignant neoplasm of prostate (HCC) Malignant neoplasm of prostate documented in this encounter Additional Health Concerns Infection Onset Date Last Indicated Resolved Time Influenza (seasonal) 05/15/2023 05/15/2023 documented as of this encounter Advance Directives Latest Code Status on File Code Status Date Activated Date Inactivated Comments Full Code 04/30/2018 12:33 PM 04/30/2018 5:23 PM This order reflects the patients wishes and were consensually agreed upon. Question Answer Comments Discussion of Advance Directives occurred with: Patient Does the patient have a Living Will? Yes, not currently available Does the patient have Health Care Power of Director Of Development And Marketing? Yes, not currently available Care Teams President And Chief Executive Officer Relationship Specialty Start Date End Date Kaz Rivas III, MD [address] [place] [address] PCP - General 10/25/1995 documented as of this encounter
--- OUTSIDE RECORDS SUMMARY | 2023-05-26 18:08 | External Medical Summary | Summary of Care ---
Author Name Unknown Organization [facility] Address [address] [place] [address] Phone [phone] Care Team Providers Care Director Of Patient Care Name Role Phone Evelyn FRANZ MD, Kaz Canela Primary Care Provider [phone] Reason for Visit * Reason Comments Medication Refill Encounter Details Date Type Department Care Team (Late st Contact Info) Description 05/22/2023 Refill Hematology/Oncology, [facility] [address] [place], [place] [phone] Maria Alejandra Espinosa MD [address] [place] [address] Malignant neoplasm of prostate (HCC) Allergies Active [...] 11/06/2022 traMADol HCl 50 MG Oral Tablet (Ultram)Indication s:Closed nondisplaced fracture of first cervical vertebra with delayed healing, unspecified fracture morphology, subsequent encounter,Closed fracture of second lumbar vertebra with routine healing, unspecified fracture morphology, subsequent encounter,Compress ion fracture of body of thoracic vertebra (HCC) [...] on 12/12/2022 Ondansetron HCl 8 MG Oral TabletIndications: Metastatic malignant neoplasm to prostate (HCC),Nausea Take 1 Tablet by mouth every 8 hours as needed for Nausea. 50 Tablet 0 06/16/2022 Active Sucralfate 1 GM Oral Tablet (Carafate)Indicati ons:Gastritis TAKE 1 TABLET 1 HOUR BEFOREMEALS AND AT BEDTIME, DISSOLVE IN WATER 120 Tablet 5 08/22/2022 Active Eligard 22.5 MG Subcutaneous Kit (Leuprolide Acetate (3 Month))Indications :Metastatic malignant neoplasm to prostate (HCC) Inject 22.5 mg under the skin every 3 months for 4 doses. 4 Kit 0 10/03/2022 Active Omeprazole 40 MG Oral Capsule Delayed Release (PriLOSEC)Indicati ons:Reflux esophagitis,Gastri tis without bleeding, unspecified chronicity, unspecified gastritis type TAKE 1 CAPSULE DAILY 1 HOURBEFORE THE FIRST MEAL OF THE DAY 90 Capsule 2 10/27/2022 Active Calcium 600+D Plus Minerals 600-400 MG-UNIT Oral Tablet ChewableIndication s:Malignant neoplasm of prostate (HCC) Take 2 Tablets by mouth in the morning. 60 Tablet 2 11/22/2022 Active Tamsulosin HCl 0.4 MG Oral Capsule (Flomax)Indication s:in evening Take 1 Capsule by mouth in [...] Active Amoxicillin-Pot Clavulanate 875-125 MG Oral Tablet (Augmentin)Indicat ions:URTI (acute upper respiratory infection),Acute maxillary sinusitis, recurrence not specified Take 1 Tablet by mouth in the morning and 1 Tablet before bedtime. Do all this for 10 days. 20 Tablet 0 05/15/2023 4 Active predniSONE 5 MG Oral Tablet (Deltasone)Indicat ions:Malignant neoplasm of prostate (HCC) Take 1 tablet by mouth in the morning. 30 Tablet 5 05/22/2023 Active Abiraterone Acetate 250 MG Oral Tablet (Zytiga)Indication s:Malignant neoplasm of prostate (HCC) Take 1 Tablet by mouth in the morning. 30 Tablet 5 05/22/2023 Active predniSONE 5 MG Oral Tablet (Deltasone)Indicat ions:Malignant neoplasm of prostate (HCC) Take 1 tablet by mouth in the morning. 30 Tablet 5 11/21/2022 4 Discontinue d(Refill) Abiraterone Acetate 250 MG Oral Tablet (Zytiga)Indication s:Malignant neoplasm of prostate (HCC) Take 1 tablet by mouth in the morning. Take with food. 30 Tablet 5 12/12/2022 4 Discontinue d(Refill) documented as of this encounter (statuses as [...] LNP-s, No Preserve , Rodriguez-sucrose, Ages 12+ (Robert Applebaum MD) 04/06/2021 Pneumococcal Conjugate Vacc, 13 Valent (Prevnar) [...] the money to buy more. Never true 05/14/19 24 Within the past 12 months, t he food you bought just didn't last and you didn't have money to get more. Never true 05/14/2023 Sex and Gender Information Value Date Recorded Sex Assigned at Male 01/03/2019 1:25 PM EDT Gender Identity Male 01/03/2019 1:25 PM EDT Sexual Orientation Straight 01/03/2019 1: 25 PM EDT Job Start Date Occupation Industry Not on file Not on file Not on file documented as of this encounter Miscellaneous Notes * Telephone Encounter - Giovany Temple RPh - 05/22/2023 3:46 PM EDT Signed Prescriptions: Disp Refills predniSONE 5 MG Oral Tablet (Deltasone) 30 Tab*5 Sig: Take 1 tablet by mouth in the morning.Authorizing Provider: MARIA ALEJANDRA ESPINOSA User: GIOVANY TEMPLE Abiraterone Acetate 250 MG Oral Tablet (Zy*30 Tab*5 Sig: Take 1 Tablet by mouth in the morning.Authorizing Provider: MARIA ALEJANDRA ESPINOSA User: GIOVANY TEM[facility]----- * Telephone Encounter - Giovany Temple RP - 05/22/2023 3:44 PM EDT Refill Request EPIC Note Clinical Pharmacy Service (Hematology/Oncology): Refill Request(s) PHYSICIAN ACTION: No Assessment & Plan After reviewing the parameters in order to refill the patient's medication(s), the following was determined: The medication(s), abiraterone/prednisone, was refilled and no parameters need to be addressed No communication to requesting entity necessary Refill Parameters The following parameters were assessed in order to decide whether or not this refill was appropriate: Refill Parameter Comments If the patient was seen in the last 6 months (12 months for MPN patients) Yes - 03/23/23 If the labs were completed per prescribing information recommendations or provider recommendations Yes - 04/23/23 If the labs were within normal limits or stable at baseline yes If the dose was correct and/or if the prescription sig reflects the current prescribed dose yes If there were any new drug interactions with the patient's oral chemotherapy no If there were any care gaps/baseline labs that need to be addressed no Giovany Temple [facility] Ambulatory Clinical Pharmacist | Oral Chemotherapy Clinic [facility] 05/22/2023, 3:46 PM documented in this encounter Plan of Treatment Upcoming Encounters Date Type Department Care Team (Latest Contact Info) Description 05/22/2023 4:30 PM EDT Laboratory Laboratory [facility] [address] [place] [phone] Zoila [address] [place] [address] Malignant neoplasm of prostate (HCC) 05/23/2023 9:30 AM EDT Pharmacy Pharmacy Hematology Oncology [place] [address] [place] [address] [facility], [facility] Clinic Hem/Onc [facility] [place] [address] 05/31/2023 9:40 AM EDT Office Visit Family Practice [facility] [place] [address] [place], [place] [address] Kaz Rivas III, MD [address] [place] [address] 06/22/2023 1:20 PM EDT Laboratory Laboratory [facility] [place] [address] [place] [phone] [place], Lab [facility] [address] [facility] [place] [address] 06/22/2023 2:30 PM EDT Telemedicine Hematology/Oncolog y, [address] [address] Maria Alejandra Espinosa MD [address] [place] [address] Cart, Telemed [facility] Hem Onc Clinic [address] [place] [address] 06/22/2023 3:00 PM EDT Immunization/Injecti on Hematology/Oncolog y Treatment, [address] [address] [facility], Chair10 Hem Onc [address] [place] [address] 11/06/2023 9:45 AM EDT Imaging Radiology [facility] 1st [facility], [place] [address] [facility] [place] [address] 11/14/2023 1:00 PM EDT Office Visit Radiation Oncology, [facility] [address] [place] [address] Crescencio Obrien MD [address] [place] [address] [phone] (work) Scheduled Procedures Name Priority Associated Diagnoses Date/Ti me COLONOSCOPY FLEXIBLE PROXIMA L DIAGNOSTIC Recall History of colonic polyps Health Maintenance Due Date Last Done Comments Depression Screening 01/04/2020 01/03/2019 DTaP,Tdap,and Td Vaccines (2 - Td or Tdap) 08/25/2020 08/25/2010 COVID-19 Vaccine (4 - season) 2022 04/06/2021, 05/21/2020, 04/23/2020 Influenza Vaccine (FLU shot) (#1) 2022 01/11/2022, 12/18/2019, 11/22/2018, Additional history exists GFR 05/21/2024 05/22/2023, 04/12, 04/02/2023, Additional history exists Albumin/Creatinine Ratio 10/05/2024 10/05/2021 COLONOSCOPY-EVERY 5 YRS AGES 18-100 08/17/2026 08/17/2021, 08/17/2021, 03/09/2016, Additional history exists Lipid Panel 12/12/2027 12/11/2022, 05/2022, 03/21/2021, Additional history exists Pneumococcal Vaccine: 65+ [...] Not on filedocumented as of this encounter Visit Diagnoses Diagnosis Malignant neoplasm of prostate (HCC) Malignant neoplasm of prostate Malignant neoplasm of prostate (HCC) Malignant neoplasm [...] the patient have Health Care Power of Crossing [place]? Yes, not currently available Care Teams Director Of Patient Care Relationship Specialty Start Date End Date Kaz Rivas III, MD [address] [place] [address] PCP - General 10/25/1995 documented as of this encounter"
--- OUTSIDE RECORDS SUMMARY | 2023-05-26 18:08 | External Medical Summary | Summary of Care ---
Author Name Unknown Organization [facility] Address [address] [place] [address] Phone [phone] Care Team Providers Care Humid System Operator Name Role Phone Evelyn FRANZ MD, Kaz Canela Primary Care Provider [phone] Reason for Visit * Reason Comments Congestion Cough Encounter Details Date Type Department Care Team (Late st Contact Info) Description 05/15/2023 2:20 PM EST Office Visit General Internal Medicine [place] [address] [place] [address] Debra Mayberry MD [address] [place] [address] URTI (acute upper respiratory infection)*; Acute maxillary sinusitis, recurrence not specified Allergies Active Allergy Reactions Criticality Noted Date Comments Levofloxacin Muscle pain 02/07/2018 Oxycodone Nausea/vomiting 02/07/2018 documented as of this encounter (statuses as of 05/15/2023) Medications Medication Sig Dispensed Refills Start Date [...] 11/06/2022 traMADol HCl 50 MG Oral Tablet (Ultram)Indicatio ns:Closed nondisplaced fracture of first cervical vertebra with delayed healing, unspecified fracture morphology, subsequent encounter,Closed fracture of second lumbar vertebra with routine healing, unspecified fracture morphology, subsequent encounter,Manisha gretel fracture of body of thoracic vertebra (HCC) [...] on 12/12/2022 Ondansetron HCl 8 MG Oral TabletIndications :Metastatic malignant neoplasm to prostate (HCC),Nausea Take 1 Tablet by mouth every 8 hours as needed for Nausea. 50 Tablet 0 06/16/2022 Active Sucralfate 1 GM Oral Tablet (Carafate)Indicat ions:Gastritis TAKE 1 TABLET 1 HOUR BEFOREMEALS AND AT BEDTIME, DISSOLVE IN WATER 120 Tablet 5 08/22/2022 Active Eligard 22.5 MG Subcutaneous Kit (Leuprolide Acetate (3 Month))Indication s:Metastatic malignant neoplasm to prostate (HCC) Inject 22.5 mg under the skin every 3 months for 4 doses. 4 Kit 0 10/03/2022 07/01/19 24 Active Omeprazole 40 MG Oral Capsule Delayed Release (PriLOSEC)Indicat ions:Reflux esophagitis,Gastr itis without bleeding, unspecified chronicity, unspecified gastritis type TAKE 1 CAPSULE DAILY 1 HOURBEFORE THE FIRST MEAL OF THE DAY 90 Capsule 2 10/27/2022 Active predniSONE 5 MG Oral Tablet (Deltasone)Indica tions:Malignant neoplasm of prostate (HCC) Take 1 tablet by mouth in the morning. 30 Tablet 5 11/21/2022 Active Calcium 600+D Plus Minerals 600-400 MG-UNIT Oral Tablet ChewableIndicatio ns:Malignant neoplasm of prostate (HCC) Take 2 Tablets by mouth in the morning. 60 Tablet 2 11/22/2022 Active Abiraterone Acetate 250 MG Oral Tablet (Zytiga)Indicatio ns:Malignant neoplasm of prostate (HCC) Take 1 tablet by mouth in the morning. Take with food. 30 Tablet 5 12/12/2022 Active Tamsulosin HCl 0.4 MG Oral Capsule (Flomax)Indicatio ns:in evening Take 1 Capsule by mouth in [...] Active Amoxicillin-Pot Clavulanate 875-125 MG Oral Tablet (Augmentin)Indica tions:URTI (acute upper respiratory infection),Acute maxillary sinusitis, recurrence not specified Take 1 Tablet by mouth in the morning and 1 Tablet before bedtime. Do all this for 10 days. 20 Tablet 0 05/15/2023 05/25/19 24 Active Ondansetron HCl 8 MG Oral TabletIndications :TANYA (acute kidney injury) (HCC),Nausea Take 1 Tablet by mouth every 8 hours as needed for Nausea or Vomiting. 60 Tablet 0 03/23/2023 05/15/19 24 Discontinued Amoxicillin 500 MG Oral Capsule (Amoxil) 0 05/14/2023 05/15/19 24 Discontinued documented as of this encounter (statuses as of 05/15/2023) Active Problems Problem Noted Date Diagnosed Date [...] as of this encounter (statuses as of 05/15/2023) Resolved Problems Problem Noted Date Diagnosed Date Resolved Date Supraclavicular lymphadenopathy 02/11/2016 01/02/2018 Screening for prostate cancer 04/15/2003 05/20/2008 Overview: Resolved per Screening Diagnosis Protocol #6 Acute cholecystitis 11/25/2002 05/07/19 19 Diaphragmatic hernia 019 documented as of this encounter (statuses as of 05/15/2023) Immunizations Name Administration Dates Next Due COVID-19 [...] on file documented as of this encounter Last Filed Vital Signs Vital Sign Reading Time Taken Comments Blood Pressure 126/80 05/15/2023 2:15 PM EST Pulse 79 05/15/2023 2:15 PM EST Temperature 37 C (98.6 F) 05/15/2023 2:15 PM EST Respiratory Rate 16 05/15/2023 2:15 PM EST Oxygen Saturation 96% 05/15/2023 2:15 PM EST Inhaled Oxygen Concentration - - Weight 93.9 kg (207 lb) 05/15/2023 2:15 PM EST Height 182.9 cm (6') 05/15/2023 2:15 PM EST Body Mass Index 28.07 05/15/2023 2:15 PM EST documented in this encounter Progress Notes * Debra Mayberry MD - 05/15/2023 2:23 PM EST Images from the original note were not included. History of Present Illness Piyush Aponte is a 72 year old male that presents for Congestion and Cough Pt is here for the headache, sinus pressure, postnasal drip, bodyache, headache, feeling of stuffiness and facial pressure for last 4 to 5 weeks and now for last one week cough is getting worse. Havediarrhoea+ for last few days. Patient denies any chestpain or wheezing or sob. Pt did try OTC meds including Flonase, cough syrup without much relief. No hx of allergies. Home covid was outdated but negative. Physical Exam Vitals: 05/15/23 1415 Temp: 37 C (98.6 F) Pulse: 79 Resp: 16 SpO2: 96% BP: 126/80 BMI: 28.07 BP Readings from Last 3 Encounters: 05/15/23 126/80 05/03/23 146/83 03/23/23 161/89 Wt Readings from Last 3 Encounters: 05/15/23 93.9 kg (207 lb) 05/03/23 95.3 kg (210 lb) 03/23/23 96.5 kg (212 lb 12.8 oz) BMI Readings from Last 3 Encounters: 05/15/23 28.07 kg/m 05/03/23 28.48 kg/m 03/23/23 28.86 kg/m Ht Readings from Last 3 Encounters: 05/15/23 1.829 m (6') 03/18/22 1.829 m (6') 08/17/21 1.829 m (6') HEENT: PERRLA, EOMI, anicteric sclera, b/l tympanic membrane is pearly white, no erythema, no pharyngeal erythema, no lymphadenopathy, neck supple CVS: RRR, no murmurs, rubs or gallops, s1 s 2normal. Sinus tenderness BL. RESP: clear to auscultation, no wheezing or crackles EXT: no edema, cyanosis, peripheral pulses palpable bilaterally No large joint swelling, no redness, range of motion normal. Skin normal. Gait normal. Mood stable No focal weakness I have reviewed the following results: None Assessment and Plan URTI (acute upper respiratory infection) (Primary) - RESPIRATORY PATHOGEN PANEL, PCR; Future; Expected date: 05/15/2023 - Amoxicillin-Pot Clavulanate 875-125 MG Oral Tablet (Augmentin); Take 1 Tablet by mouth in the morning and 1 Tablet before bedtime. Do all this for 10 days. Acute maxillary sinusitis, recurrence not specified - RESPIRATORY PATHOGEN PANEL, PCR; Future; Expected date: 05/15/2023 - Amoxicillin-Pot Clavulanate 875-125 MG Oral Tablet (Augmentin); Take 1 Tablet by mouth in the morning and 1 Tablet before bedtime. Do all this for 10 days. Other orders - predniSONE 10 MG Oral Tablet (Deltasone); Take 5 tabs for 2 days, 4 tabs for 2 days, 3 tabs for 2days, 2 tabs for 2 days 1 tab for 2 days Advised more probiotic. Hold prednisone 5 mg daily until done withjnew prednisone taper then continue and restart prednisone 5 mg po daily. Wrap-Up Time: I spent a total of 20-29 minutes (exact time 25 mins) on the date of service in preparation, delivery, and documentation of the care provided to Piyush Aponte excluding any time spent in the performance of separately billed services. documented in this encounter Nursing Notes * Galina Michele LPN - 05/15/2023 2:14 PM EST Patient presents today for sinus congestion, drainage, cough, chest congestion, headache, scratchy throat for about a week. documented in this encounter Plan of Treatment Upcoming Encounters Date Type Department Care Team (Late st Contact Info) Description 05/22/2023 4:30 PM EDT Laboratory Laboratory [place] [address] [place] [address] [facility] Lab [facility] [address] [place] [address] 05/23/2023 9:30 AM EDT Pharmacy Pharmacy Hematology Oncology [place] [address] [place] [address] [facility] [place] [facility] Hem/Onc [address] [place] [address] 05/31/2023 9:40 AM EDT Office Visit Family Practice [facility] [place] [address] [place], [place] [address] EvelynKaz napier III, MD [address] [place] [address] 06/22/2023 1:20 PM EDT Laboratory Laboratory [facility] [place] [address] [facility] [place] [phone] [facility] [address] [facility] [place] [address] 06/22/2023 2:30 PM EDT Telemedicine Hematology/Oncology, [address] [address] Stan Parra MD [address] [place], [place] [id number] Cart, Telemed [facility] Hem Onc Clinic [address] [place] [address] 06/22/2023 3:00 PM EDT Immunization/Injection Hematology/Oncology Treatment, [address] [address] [facility], Chair10 Hem Onc [address] [place] [address] 11/06/2023 9:45 AM EDT Imaging Radiology [facility] [address] [facility] [place] [address] 11/14/2023 1:00 PM EDT Office Visit Radiation Oncology, [facility] [address] [place] [address] Crescencio Obrien MD [address] [place] [address] Scheduled Orders Name Type Priority Associated Diagnoses Orde r Schedule RESPIRATORY PATHOGEN PANEL, PCR Lab Routine URTI (acute upper respiratory infection) Acute maxillary sinusitis, recurrence not specified Expected: 05/15/2023 (Approximate), Expires: 05/14/2024 Scheduled Procedures Name Priority Associated Diagnoses Date/Ti [...] as of this encounter Visit Diagnoses Diagnosis URTI (acute upper respiratory infection)- Primary Acute upper respiratory infections of unspecified site Acute maxillary sinusitis, recurrence not specified documented in this encounter Additional Health Concerns Infection Onset Date Last Indicated Resolved Time Respiratory Rule-Out 05/15/2023 05/15/2023 documented as of this encounter [...] the patient have Health Care Power of Revenue Manager? Yes, not currently available Care Teams Humid System Operator Relationship Specialty Start Date End Date Kaz Rivas III, MD [address] [place] [address] PCP - General 10/25/1995 documented as of this encounter
--- OUTSIDE RECORDS SUMMARY | 2023-05-26 18:08 | External Medical Summary | Summary of Care ---
Author Name Unknown Organization [facility] Address [address] [place] [address] Phone [phone] Care Team Providers Care Health And Wellness Advisor Name Role Phone Evelyn FRANZ MD, Kaz Canela Primary Care Provider [phone] Reason for Visit * Reason Comments Medication Refill Encounter Details Date Type Department Care Team (Late st Contact Info) Description 05/22/2023 Refill Hematology/Oncology, [facility] [address] [place], [place] [phone] Yesi Farfan CRNP [address] [place] [address] Malignant neoplasm of prostate (HCC) Allergies Active [...] Miscellaneous Notes * Telephone Encounter - Giovany Pagan RPh - 05/22/2023 3:44 PM EDT Refused Prescriptions: Disp Refills Abiraterone Acetate 250 MG Oral Tablet (Zy*30 Tab*5 Sig: Take 1tablet by mouth in the morning. Take with food.Refused By: GIOVANY PAGAN for Refusal: Duplicate Request documented in this encounter Plan of Treatment Upcoming Encounters Date Type Department Care Team (Latest Contact Info) Description 05/22/2023 4:30 PM EDT Laboratory Laboratory [facility] [address] [place], [place] [address] Zoila Shen [address] [place], [place] [address] Malignant neoplasm of prostate (HCC) 05/23/2023 9:30 AM EDT Pharmacy Pharmacy Hematology Oncology [facility] [address] [place] [address] [facility] Hem/Onc [address] [place] [address] 05/31/2023 9:40 AM EDT Office Visit Family Practice [facility] Hermelinda [place] [address] [place] [address] Kaz Rivas III, MD [address] [place] [address] 06/22/2023 1:20 PM EDT Laboratory Laboratory [facility] [place] [address] [place] [phone] [facility] 200 [facility] [place] [address] 06/22/2023 2:30 PM EDT Telemedicine Hematology/Oncolog y, [address] [place] [address] Stan Parra MD [address] [place] [address] [facility]y Telemed [facility] Hem Onc Clinic [address] [address] 06/22/2023 3:00 PM EDT Immunization/Injecti on Hematology/Oncolog y Treatment, [address] [place] [address] [facility], Chair10 Hem Onc [address] [place] [address] [place] [address] 11/06/2023 9:45 AM EDT Imaging Radiology [address], [place] 132 [facility] [place] [address] 11/14/2023 1:00 PM EDT Office Visit Radiation Oncology, [facility] [address] [place] [address] Crescencio Obrien MD [address] [place] [address] [place] [address] Scheduled Procedures Name Priority Associated Diagnoses Date/Ti me COLONOSCOPY FLEXIBLE PROXIMA L DIAGNOSTIC Recall History of colonic polyps Health Maintenance Due Date Last Done Comments Depression Screening 01/04/2020 01/03/2019 DTaP,Tdap,and Td Vaccines (2 - Td or Tdap) 08/25/2020 08/25/2010 COVID-19 Vaccine ( - season) 2022 04/06/2021, 05/21/2020, 04/23/2020 Influenza [...] the patient have Health Care Power of Patient Intake Coordinator? Yes, not currently available Care Teams Health And Wellness Advisor Relationship Specialty Start Date End Date Kaz Rivas III, MD [address] [place] [address] PCP - General 10/25/1995 documented as of this encounter
--- OUTSIDE RECORDS SUMMARY | 2023-05-26 18:08 | External Medical Summary ---
Author Name Unknown Address Unknown Organization K09:[facility] [place] [address] Laboratory Report Ordering Provider Test Date Status JESÚS BESS 05/22/2023 14:38:48 Final Observation Date Value Abnormality Reference (Units ) Status SYNC LEUKOCYTES IN BLOOD BY AUTOMATED COUNT 05/22/2023 14:38:48 5.13 4.00-10.80 (K/uL) Final Segs 05/22/2023 14:38:48 85.4 Above high normal 40.0-75.0 (%) Final Lymphs % 05/22/2023 14:38:48 10.3 Below low normal 18.0-42.0 (%) Final Monos 05/22/2023 14:38:48 4.3 1.0-11.0 (%) Final Eosinophils 05/22/2023 14:38:48 0.0 0.0-6.0 (%) Final Basos 05/22/2023 14:38:48 0.0 0.0-2.0 (%) Final Absolute Segs 05/22/2023 14:38:48 4.38 1.80-7.70 (K/uL) Final Lymphs, absolute 05/22/2023 14:38:48 0.53 Below low normal 1.00-4.80 (K/ul) Final Monos, Abs 05/22/2023 14:38:48 0.22 0.00-1.10 (K/uL) Final Eos, Abs 05/22/2023 14:38:48 0.00 0.00-0.70 (K/uL) Final Basos, Abs 05/22/2023 14:38:48 0.00 0.00-0.20 (K/uL) Final Performing Location [facility] [place] [place] [address]
--- OUTSIDE RECORDS SUMMARY | 2023-05-26 18:08 | External Medical Summary | Summary of Care ---
Author Name Unknown Organization [facility] Address [address] [place] [address] Phone [phone] Care Team Providers Care Bulb Grower Name Role Phone Evelyn FRANZ MD, Kaz Canela Primary Care Provider [phone] Reason for Visit * Reason Comments Treatment Eligard and IVF * Episode Based Medications (Routine) - Authorized Specialty Diagnoses / Procedures Referred By Aj t Referred To Contact Diagnoses Malignant neoplasm of prostate (HCC) Procedures ND LEUPROLIDE ACETATE SUSPNSION Stan Parra MD [address] [place] [address] [facility] Hem/Onc [address] [facility] [place] [address] Referral ID Status Reason Start Date Expiration Date V isits Requested Visits Authorized [id number] Authorized 05/23/2022 06/05/2025 999 [id number] Encounter Details Date Type Department Care Team (Latest Contact Info) Description 03/23/2023 10:00 AM EST Hem/Onc Treatment Hematology/Oncology [address], [address] [place] [address] [facility], Chair2 Hem Onc [address] [place], [place] [address] [phone] Malignant neoplasm of prostate (HCC)*; Nausea; TANYA (acute kidney injury) (HCC) Allergies Active Allergy Reactions Criticality Noted Date Comments Levofloxacin Muscle pain 02/07/2018 Oxycodone Nausea/vomiting 02/07/2018 documented as of this encounter (statuses as of 05/05/2023) Medications Medication Sig Dispensed Refills Start Date [...] as needed for Muscle spasms. 0 Active Apixaban 5 MG Oral Tablet (Eliquis) one tablet by mouth twice daily 180 Tablet 3 04/20/2022 Active Naproxen 500 MG Oral Tablet (Naprosyn) [...] for Nausea. 50 Tablet 0 06/16/2022 Active Additional Information Patient not taking.Reported on 08/22/2022 Sucralfate 1 GM Oral Tablet (Carafate)Indicati ons:Gastritis TAKE 1 TABLET 1 HOUR BEFOREMEALS AND AT BEDTIME, DISSOLVE IN WATER 120 Tablet 5 08/22/2022 Active Eligard 22.5 MG Subcutaneous Kit (Leuprolide Acetate (3 Month))Indications :Metastatic malignant neoplasm to prostate (HCC) Inject 22.5 mg under the skin every 3 months for 4 doses. 4 Kit 0 10/03/2022 4 Active Omeprazole 40 MG Oral Capsule Delayed Release (PriLOSEC)Indicati ons:Reflux esophagitis,Gastri tis without bleeding, unspecified chronicity, unspecified gastritis type TAKE 1 CAPSULE DAILY 1 HOURBEFORE THE FIRST MEAL OF THE DAY 90 Capsule 2 10/27/2022 Active predniSONE 5 MG Oral Tablet (Deltasone)Indicat [...] with food. 30 Tablet 5 12/12/2022 Active Ondansetron HCl 8 MG Oral TabletIndications: TANYA (acute kidney injury) (HCC),Nausea Take 1 Tablet by mouth every 8 hours as needed for Nausea or Vomiting. 60 Tablet 0 03/23/2023 Active Tamsulosin HCl 0.4 MG Oral Capsule (Flomax)Indication s:in evening Take 1 Capsule by mouth in the morning. 90 Capsule 3 08/09/2022 4 Discontinue d(Refill) documented as of this encounter (statuses as of 05/05/2023) Active Problems Problem Noted Date Diagnosed Date [...] as of this encounter (statuses as of 05/05/2023) Resolved Problems Problem Noted Date Diagnosed Date Resolved Date Supraclavicular lymphadenopathy 02/11/2016 01/02/2018 Screening for prostate cancer 04/15/2003 05/20/2008 Overview: Resolved per Screening Diagnosis Protocol #6 Acute cholecystitis 11/25/2002 05/07/19 19 Diaphragmatic hernia 019 documented as of this encounter (statuses as of 05/05/2023) Immunizations Name Administration Dates Next Due COVID-19 [...] on file documented as of this encounter Nursing Notes * Tamiko Gonzalez LPN - 03/23/2023 12:50 PM EST Patient left IVC by ambulating. Accompanied by Spouse. Voiced no complaints. Tamiko Gonzalez LPN 03/23/2023 12:50 PM documented in this encounter Plan of Treatment Upcoming Encounters Date Type Department Care Team (Late st Contact Info) Description 05/22/2023 4:30 PM EDT Laboratory Laboratory [facility] [address] [place] [phone] Zoila [place] [address] [place] [address] [address] 05/23/2023 9:30 AM EDT Pharmacy Pharmacy Hematology Oncology [address] [place] [address] [facility], [facility] Hem/Onc [address] [place] [address] 05/31/2023 9:40 AM EDT Office Visit [facility] [address] [place] [address] PowellKaz napier III, MD [address] [place] [address] 06/22/2023 1:20 PM EDT Laboratory Laboratory [facility] [address] [place] [phone] [facility] 200 [facility] [place] [address] 06/22/2023 2:30 PM EDT Telemedicine Hematology/Oncology, [address] [address] Stan Parra MD [address] [place] [address] Buffy, Telemed [facility] Hem Onc Clinic [address] [place] [address] 06/22/2023 3:00 PM EDT Immunization/Injection Hematology/Oncology Treatment, [address] [address] [facility], Chair10 Hem Onc [address] [place] [address] 11/06/2023 9:45 AM EDT Imaging Radiology [address], [place] 132 [facility] [place] [address] 11/14/2023 1:00 PM EDT Office Visit Radiation Oncology, [facility] [address] [place] [address] Crescencio Obrien MD 400 [facility] [place] [phone] Scheduled Procedures Name Priority Associated Diagnoses Date/Ti me COLONOSCOPY FLEXIBLE PROXIMA L DIAGNOSTIC Recall History of colonic polyps Health Maintenance Due Date Last Done Comments Depression Screening 01/04/2020 01/03/2019 DTaP,Tdap,and Td Vaccines (2 - Td or Tdap) 08/25/2020 08/25/2010 COVID-19 Vaccine (4 - 2022- season) 2022 04/06/2021, 05/21/2020, 04/23/2020 Influenza Vaccine [...] Visit Diagnoses Diagnosis Malignant neoplasm of prostate (HCC)- Primary Malignant neoplasm of prostate Nausea Nausea alone TANYA (acute kidney injury) (HCC) Acute kidney failure, unspecified documented in this encounter Administered Medications Inactive Administered Medications - up to 3 most recent administrations Medication Order MAR Action Action Date Dose Rate Site Leuprolide Acetate (3 Month) (Eligard) inj 22.5 mg 22.5 mg, Subcutaneous, ONCE, On Sun03/23/23 at 1115, For 1 dose Given 03/23/2023 10:52 AM EST 22.5 mg Abdomen Right Lower NSS infusion FOR HYDRATION Intravenous, at 500 mL/hr Administer over 2 Hours, ONCE, 1 dose, On Sun03/23/23 at 1145 Start Infusion 03/23/2023 10:46 AM EST 1,000 mL 500 mL/hr ondansetron (Zofran) inj 8 mg 8 mg, IV Push, ONCE, On Sun03/23/23 at 1130, For 1 dose Given 03/23/2023 10:48 AM EST 8 mg documented in this encounter Advance Directives Latest Code Status [...] the patient have Health Care Power of Farmer General? Yes, not currently available Care Teams Bulb Grower Relationship Specialty Start Date End Date Kaz Rivas III, MD [address] [place] [address] PCP - General 10/25/1995 documented as of this encounter
--- OUTSIDE RECORDS SUMMARY | 2023-05-26 18:08 | External Medical Summary | Summary of Care ---
Author Name Unknown Organization [facility] Address [address] [place] [address] Phone [phone] Care Team Providers Care Horticulture Worker Name Role Phone Evelyn FRANZ MD, Kaz Canela Primary Care Provider [phone] Reason for Visit * Reason Comments Congestion Cough Encounter Details Date Type Department Care Team (Late st Contact Info) Description 05/15/2023 2:20 PM EST Office Visit General Internal Medicine [facility] [place] [address] [facility] [place] [address] Debra Mayberry MD [address] [facility] [place] [address] URTI (acute upper respiratory infection)*; Acute maxillary [...] 05/22/2023 4:30 PM EDT Laboratory Laboratory [facility] [place] [address] [place] [phone] [facility] [address] [place] [address] Malignant neoplasm of prostate (HCC) 05/23/2023 9:30 AM EDT Pharmacy Pharmacy Hematology Oncology [address] [address] [facility] Hem/Onc [facility] [place] [address] 05/31/2023 9:40 AM EDT Office Visit Family Practice [facility] [place] [address] [place] [address] Kaz Rivas III, MD [address] [place] [address] 06/22/2023 1:20 PM EDT Laboratory Laboratory [facility] [place] [address] [facility] [place] [phone] [facility] [address] [facility] [place] [address] 06/22/2023 2:30 PM EDT Telemedicine Hematology/Oncolog y, [address] [address] Stan Parra MD [address] [place] [address] Cart, Telemed [facility] Hem Onc [facility] [address] [place] [address] 06/22/2023 3:00 PM EDT Immunization/Injecti on Hematology/Oncolog y Treatment, [address] [address] [facility], Chair10 Hem Onc [address] [place] [id number] 11/06/2023 9:45 AM EDT Imaging Radiology [facility] 1st [facility] [address] [facility] [place] [address] 11/14/2023 1:00 PM EDT Office Visit Radiation Oncology, [facility] [address] [place] [address] Crescencio Obrien MD [address] [place], [place] [id number] Scheduled Procedures Name Priority Associated Diagnoses Date/Ti [...] Additional history exists Lipid Panel 12/12/2027 12/11/2022, 02/0 05/2022, 03/21/2021, Additional history exists Pneumococcal Vaccine: [...] Procedure Name Priority Date/Time Associated Diagnosis Comments RESPIRATORY PATHOGEN PANEL, PCR Routine 05/15/2023 2:48 PM EST URTI (acute upper respiratory infection) Acute maxillary sinusitis, recurrence not specified documented in this encounter Results * (ABNORMAL) RESPIRATORY PATHOGEN PANEL, PCR (05/15/2023 2:48 PM EST) Adenovirus by PCR Negative Negative 03/06/2 024 12:08 AM EST LABORATORY [facility] [place] Coronavirus 229E by PCR Negative Negative 05/16/2023 12:08 AM EST LABORATORY [facility] [place] Coronavirus HKU1 by PCR Negative Negative 05/16/2023 12:08 AM EST LABORATORY [facility] [place] Coronavirus NL63 by PCR Negative Negative 05/16/2023 12:08 AM EST LABORATORY [facility] [place] Coronavirus OC43 by PCR Negative Negative 05/16/2023 12:08 AM EST LABORATORY [facility] [place] Coronavirus SARS-CoV-2 by PCR Negative Negative 05/16/2023 12:08 AM EST LABORATORY [facility] [place] Human Metapneumovirus by PCR Negative Negative 05/16/2023 12:08 AM EST LABORATORY [facility] [place] Rhinovirus/Enterov irus by PCR Negative Negative 05/16/2023 12:08 AM EST LABORATORY [facility] [place] Influenza A Virus, Subtype H3 by PCR Positive(A) Negative 05/16/2023 12:08 AM EST LABORATORY [facility] [place] Comment:Influenza A virus Gunn btype H3 detected by PCR (amplified probe). Test results reported to [facility]. Influenza B Virus by PCR Negative Negative 05/16/2023 12:08 AM EST LABORATORY [facility] [place] Parainfluenza Virus 1 by PCR Negative Negative 05/16/2023 12:08 AM EST LABORATORY [facility] [place] Parainfluenza Virus 2 by PCR Negative Negative 05/16/2023 12:08 AM EST LABORATORY [facility] [place] Parainfluenza Virus 3 by PCR Negative Negative 05/16/2023 12:08 AM EST LABORATORY [facility] [place] Parainfluenza Virus 4 by PCR Negative Negative 05/16/2023 12:08 AM EST LABORATORY [facility] [place] Respiratory Syncytial Virus by PCR Negative Negative 05/16/2023 12:08 AM EST LABORATORY [facility] [place] Bordetella pertussis by PCR Negative Negative 05/16/2023 12:08 AM EST LABORATORY [facility] [place] Chlamydia pneumoniae by PCR Negative Negative 05/16/2023 12:08 AM EST LABORATORY [facility] [place] Mycoplasma pneumoniae by PCR Negative Negative 05/16/2023 12:08 AM EST LABORATORY [facility] [place] Bordetella parapertussis by PCR Negative Negative 05/16/2023 12:08 AM EST LABORATORY [facility] [place] Comment: The primers that detect Rhinovirus may cross react with some Enterorviruses. The validation of bronchial specimens, tracheal aspirates, and throats for this assay was developed and performance characteristics determined by [facility]. The validation of alternate specimen types has not been cleared or approved by the U.S. Food and Drug Administration (FDA). It has been determined that such clearance or approval is not necessary. Upper Respiratory Nasopharyngeal swab / Unknown Non-blood Collection / Unknown 05/15/2023 2:48 PM EST 05/15/2023 3:13 PM EST Debra Mayberry MD LAB MICRO - GENE RAL ORDERABLES LABORATORY [facility] [place] [address] [place] [address] documented in this encounter Visit Diagnoses Diagnosis URTI (acute upper respiratory infection)- Primary Acute upper respiratory infections of unspecified site Acute maxillary sinusitis, recurrence not specified Malignant neoplasm of prostate (HCC) Malignant neoplasm of prostate documented in this encounter Additional Health Concerns Infection Onset Date Last Indicated Resolved Time Respiratory Rule-Out 05/15/2023 05/15/2023 024 12:08 AM EST documented as of this encounter Advance Directives [...] the patient have Health Care Power of Subsurface Augmentee Operator? Yes, not currently available Care Teams Horticulture Worker Relationship Specialty Start Date End Date Kaz Rivas III, MD [address] [place] [address] [place] [address] PCP - General 10/25/1995 documented as of this encounter
--- OUTSIDE RECORDS SUMMARY | 2023-05-26 18:08 | External Medical Summary | Summary of Care ---
Author Name Unknown Organization [facility] Address [address] [place] [address] Phone [phone] Care Team Providers Care Canal Tender Name Role Phone Evelyn FRANZ MD, Kalee Canela Primary Care Provider [phone] Reason for Visit * Reason Comments eRx-Medication Refill Encounter Details Date Type Department Care Team (Late st Contact Info) Description 05/12/2023 Refill Family Practice [facility] [address] [place] [address] Kalee Arechiga III, MD [address] [place] [address] Allergies Active Allergy Reactions Criticality Noted Date Comments Levofloxacin Muscle pain 02/07/2018 Oxycodone Nausea/vomiting 02/07/2018 documented as of this encounter (statuses as of 05/14/2023) Medications Medication Sig Dispensed Refills Start Date [...] on 08/22/2022 Sucralfate 1 GM Oral Tablet (Carafate)Indicat ions:Gastritis [...] 12/12/2022 Active Ondansetron HCl 8 MG Oral TabletIndications [...] A DAY 180 Tablet 1 05/14/2023 Active Apixaban 5 MG Oral Tablet (Eliquis) one tablet by mouth twice daily 180 Tablet 3 04/20/2022 05/14/19 24 Discontinued documented as of this encounter (statuses as of 05/14/2023) Active Problems Problem Noted Date Diagnosed Date [...] as of this encounter (statuses as of 05/14/2023) Resolved Problems Problem Noted Date Diagnosed Date Resolved Date Supraclavicular lymphadenopathy 02/11/2016 01/02/2018 Screening for prostate cancer 04/15/2003 05/20/2008 Overview: Resolved per Screening Diagnosis Protocol #6 Acute cholecystitis 11/25/2002 05/07/19 19 Diaphragmatic hernia 019 documented as of this encounter (statuses as of 05/14/2023) Immunizations Name Administration Dates Next Due COVID-19 [...] encounter Miscellaneous Notes * Telephone Encounter - Rogelio Guzman [facility] - 05/14/2023 10:37 AM ESTSigned Prescriptions: Disp Refills Apixaban 5 MG Oral Tablet (Eliquis) 180 Ta*1 Sig: TAKE 1 TABLET TWICE A DAYAuthorizing Provider: KALEE ARECHIGA III User: ROGELIO FAUSTIN documented in this encounter Plan of Treatment Upcoming Encounters Date Type Department Care Team (Late st Contact Info) Description 05/15/2023 10:20 AM EST Office Visit Family Practice [facility] [address] [place] [address] Poppy Davis PA-C [address] [place] [address] 05/22/2023 4:30 PM EDT Laboratory Laboratory [facility] [address] [place] [phone] Zoila [facility] [address] [place] [address] 05/23/2023 9:30 AM EDT Pharmacy Pharmacy Hematology Oncology [address] [place] [address] [facility] Hem/Onc [address] [place] [address] 05/31/2023 9:40 AM EDT Office Visit [facility] [place] [address] [place] [address] Kalee Arechiga III, MD [address] [place] [address] 06/22/2023 1:20 PM EDT Laboratory Laboratory [facility] [place] [address] [place] [phone] [facility] 200 [facility] [place] [address] 06/22/2023 2:30 PM EDT Telemedicine Hematology/Oncology, [address] [address] Stan Parra MD [address] [place] [address] Cart, Telemed [facility] Hem Onc Clinic [address] [place] [address] 06/22/2023 3:00 PM EDT Immunization/Injection Hematology/Oncology Treatment, [address] [address] [facility], Chair10 Hem Onc [address] [place] [address] 11/06/2023 9:45 AM EDT Imaging Radiology [address] 132 [facility] [place], [place] [address] 11/14/2023 1:00 PM EDT Office Visit Radiation Oncology, [facility] [address] [place] [address] Crescencio Obrien MD 400 [facility] [place] [address] Scheduled Procedures Name Priority Associated Diagnoses Date/Ti [...] Not on filedocumented as of this encounter Advance Directives Latest [...] the patient have Health Care Power of On Site Construction Superintendent? Yes, not currently available Care Teams Canal Tender Relationship Specialty Start Date End Date Kalee Arechiga III, MD [address] [place] [address] PCP - General 10/25/1995 documented as of this encounter
--- OUTSIDE RECORDS SUMMARY | 2023-05-26 18:08 | External Medical Summary | Summary of Care ---
Author Name Unknown Organization [facility] Address [address] [place] [address] Phone [phone] Care Team Providers Care Vehicle Washer Name Role Phone Evelyn FRANZ MD, Kaz Canela Primary Care Provider [phone] Reason for Visit * Reason Comments Congestion Cough Encounter Details Date Type Department Care Team (Late st Contact Info) Description 05/15/2023 2:20 PM EST Office Visit General Internal Medicine [facility] [place] 200 [facility] [place] [address] Debra Mayberry MD 200 [facility] [place] [address] URTI (acute upper respiratory infection)*; Acute maxillary [...] 4:30 PM EDT Laboratory Laboratory [facility] [place] [address] [place] [address] [facility] Lab [facility] [address] [place] [address] 05/23/2023 9:30 AM EDT Pharmacy Pharmacy Hematology Oncology [place] [address] [place] [address] [facility], [facility] Clinic Hem/Onc [address] [place] [address] 05/31/2023 9:40 AM EDT Office Visit Family Practice [facility] [place] [address] [place], [place] [address] EvelynKaz napier III, MD [address] [place] [address] 06/22/2023 1:20 PM EDT Laboratory Laboratory [facility] [place] 200 [facility] [place] [phone] [facility] 200 [facility] [place] [address] 06/22/2023 2:30 PM EDT Telemedicine Hematology/Oncology, [address] [address] Stan Parra MD 100 [place], [place] [address] Cart, Telemed [facility] Hem Onc Clinic [address] [place] [address] 06/22/2023 3:00 PM EDT Immunization/Injection Hematology/Oncology Treatment, [address] [address] [facility], Chair10 Hem Onc [address] [place] [address] 11/06/2023 9:45 AM EDT Imaging Radiology [facility]st [facility] [address] [facility] [place] [address] 11/14/2023 1:00 PM EDT Office Visit Radiation Oncology, [facility] [address] [place] [address] Crescencio Obrien MD [address] [place] [address] Scheduled Orders Name Type Priority Associated Diagnoses [...] the patient have Health Care Power of Veneer Drier Feeder? Yes, not currently available Care Teams Vehicle Washer Relationship Specialty Start Date End Date Kaz Rivas III, MD 200 [facility] [place] [address] PCP - General 10/25/1995 documented as of this encounter
--- OUTSIDE RECORDS SUMMARY | 2023-05-26 18:08 | External Medical Summary ---
Author Name Unknown Address Unknown Organization [facility] [place] [address] Laboratory Report Ordering Provider Test Date Status JESÚS BESS 05/22/2023 14:38:48 Final Observation Date Value Abnormality Reference (Units ) Status WBC, Total 05/22/2023 14:38:48 5.13 4.00-10.8 0 (K/uL) Final RBC 05/22/2023 14:38:48 4.65 4.50-5.25 (M/uL) Final Hemoglobin 05/22/2023 14:38:48 13.5 Below low normal 14 .0-16.8 (g/dL) Final HCT 05/22/2023 14:38:48 41.1 40.0-48.4 (%) Final MCV 05/22/2023 14:38:48 88.4 82.0-99.5 (fL) Final MCH 05/22/2023 14:38:48 29.0 27.0-34.0 (pg) Final MCHC 05/22/2023 14:38:48 32.8 32.0-36.0 (g/dL) Final RDW 05/22/2023 14:38:48 13.5 11.5-15.5 (%) Final Platelets 05/22/2023 14:38:48 209 140-400 (K /uL) Final MPV 05/22/2023 14:38:48 9.8 6.6-11.1 ( fL) Final Performing Location [facility] [address]
--- OUTSIDE RECORDS SUMMARY | 2023-05-26 18:08 | External Medical Summary ---
Author Name Unknown Address Unknown Organization [facility] - [address] [place] [address] Laboratory Report Ordering Provider Test Date Status JESÚS BESS 05/22/2023 14:38:48 Final Every two weeks for three mo nths, then every month (patients with moderate hep impairment every week for one month, every two weeks for two months, then every month) Observation Date Value Abnormality Reference (Units ) Status BUN 05/22/2023 14:38:48 14 6-20 (mg/dL) Final Creatinine 05/22/2023 14:38:48 0.8 0.6-1.2 (mg/dL) Final Glomerular filtration rate/1.73 sq M.predicted [Volume Rate/Area] in Serum, Plasma or Blood by Creatinine-based formula (CKD-EPI) 05/22/2023 14:38:48 >90 >=60 (mL/min) Final eGFR is calculated based on the CKD-EPI 2020 equation SODIUM 05/22/2023 14:38:48 140 135-146 (m mol/L) Final Potassium 05/22/2023 14:38:48 4.7 3.5-5.1 (m mol/L) Final Cl 05/22/2023 14:38:48 105 98-107 (mm ol/L) Final CO2 05/22/2023 14:38:48 24 22-32 (mmo l/L) Final Anion gap 05/22/2023 14:38:48 11 7-15 (mmol /L) Final Glucose 05/22/2023 14:38:48 113 70-120 (mg /dL) Final Albumin 05/22/2023 14:38:48 4.1 3.8-5.0 (g /dL) Final AST (Aspartate aminotransferase) 05/22/2023 14:38:48 22 10-50 (U/L) Final Alk Phos 05/22/2023 14:38:48 85 35-130 (U/ L) Final Bilirubin, Total 05/22/2023 14:38:48 0.3 <=1 .2 (mg/dL) Final Calcium 05/22/2023 14:38:48 9.5 8.4-10.2 ( mg/dL) Final Protein 05/22/2023 14:38:48 7.2 6.0-8.3 (g /dL) Final ALT (Alanine aminotransferase) 05/22/2023 14:38:48 11 10-50 (U/L) Final Performing Location [facility] [address] [place] [address]
--- OUTSIDE RECORDS SUMMARY | 2023-05-26 18:08 | External Medical Summary ---
Author Name Unknown Address Unknown Organization K01:[facility] - [address] [place] [address] Laboratory Report Ordering Provider Test Date Status BOB BESSJUNIOR 05/22/2023 14:38:48 Final Observation Date Value Abnormality Reference (Units ) Status PSA 05/22/2023 14:38:48 0.03 <4.10 (ng/ mL) Final Performing Location [facility] - [address] [place] [address]
--- OUTSIDE RECORDS SUMMARY | 2023-05-26 18:08 | External Medical Summary | Summary of Care ---
Author Name Unknown Organization [facility] Address [address] [place] [address] Phone [phone] Care Team Providers Care Lead Welder Name Role Phone Evelyn FRANZ MD, Kaz Canela Primary Care Provider [phone] Reason for Visit * Reason Comments Patient Assistance Program Encounter Details Date Type Department Care Team (Late st Contact Info) Description 06/07/2022 Documentation Hematology Oncology [facility] [address] [place] [address] Stan Parra MD [address] [place] [address] Allergies Active Allergy Reactions Criticality Noted Date Comments Levofloxacin Muscle pain 02/07/2018 Oxycodone Nausea/vomiting 02/07/2018 documented as of this encounter (statuses as of 05/16/2023) Medications Medication Sig Dispensed Refills Start Date End Date Status Multiple Vitamins-Mineral s (CENTRUM SILVER 50+MEN) TABS Take by mouth. 0 Active Acetaminophen ER 650 MG Oral Tablet Extended Release Take 1 Tablet by mouth every 8 hours as needed for Pain, Severe. 30 Tablet 0 2 Active Rosuvastatin Calcium 5 MG Oral Tablet (Crestor) Take by mouth 1 Tablet in the morning. 90 Tablet 11 2 Active Additional Information Patient not taking.Reported on 11/06/2022 traMADol HCl 50 MG Oral Tablet (Ultram)Indicati ons:Closed nondisplaced fracture of first cervical vertebra with delayed healing, unspecified fracture morphology, subsequent encounter,Closed fracture of second lumbar vertebra with routine healing, unspecified fracture morphology, subsequent encounter,Compre ssion fracture of body of thoracic vertebra (HCC) Take 1 Tablet (50 mg) by mouth every 8 hours as needed for Pain, Severe. 20 Tablet 0 2 Active Additional Information Patient not taking.Reported on 06/16/2022 Methocarbamol 500 MG Oral Tablet (Robamol) Take 1 Tablet by mouth 2 times a day as needed for Muscle spasms. 0 Active Vitamin D3 10 MCG (400 UNIT) Oral Capsule Take 1 Capsule by mouth in the morning. 0 06/17/19 23 Discontinued Sucralfate 1 GM Oral Tablet (Carafate)Indica tions:Gastritis TAKE 1 TABLET 1 HOUR BEFOREMEALS AND AT BEDTIME, DISSOLVE IN WATER 120 Tablet 5 2 08/23/19 23 Discontinued Apixaban 5 MG Oral Tablet (Eliquis) one tablet by mouth twice daily 180 Tablet 3 3 05/14/19 24 Discontinued Tamsulosin HCl 0.4 MG Oral Capsule (Flomax)Indicati ons:in evening Take 1 Capsule by mouth in the morning. 90 Capsule 3 3 08/10/19 23 Discontinued(Ref ill) Calcium 600+D Plus Minerals 600-400 MG-UNIT Oral Tablet ChewableIndicati ons:Malignant neoplasm of prostate (HCC) Take 2 Tablets by mouth in the morning. 60 Tablet 2 3 11/23/19 23 Discontinued(Ref ill) predniSONE 5 MG Oral Tablet (Deltasone)Indic ations:Malignant neoplasm of prostate (HCC) Take 1 Tablet by mouth in the morning. 30 Tablet 5 3 11/22/19 23 Discontinued(Ref ill) Abiraterone Acetate 250 MG Oral Tablet (Zytiga)Indicati ons:Malignant neoplasm of prostate (HCC) Take 4 Tablets by mouth in the morning on an empty stomach (1 hour before or 2 hours after food). 120 Tablet 5 3 07/22/19 23 Discontinued(Med ication/Dose Changed) Omeprazole 40 MG Oral Capsule Delayed Release (PriLOSEC)Indica tions:Reflux esophagitis,Vincent ritis without bleeding, unspecified chronicity, unspecified gastritis type TAKE 1 CAPSULE DAILY 1 HOURBEFORE THE FIRST MEAL OF THE DAY 90 Capsule 1 3 10/28/19 23 Discontinued Eligard 22.5 MG Subcutaneous Kit (leuprolide acetate (3 Month))Indicatio ns:Metastatic malignant neoplasm to prostate (HCC) Inject 22.5 mg under the skin every 3 months for 4 doses 4 Kit 0 3 09/30/19 23 Discontinued(Ref ill) documented as of this encounter (statuses as of 05/16/2023) Active Problems Problem Noted Date Diagnosed Date Compression fracture of body of thoracic vertebr [...] as of this encounter (statuses as of 05/16/2023) Resolved Problems Problem Noted Date Diagnosed Date Resolved Date Supraclavicular lymphadenopathy 02/11/2016 01/02/2018 Screening for prostate cancer 04/15/2003 05/20/2008 Overview: Resolved per Screening Diagnosis Protocol #6 Acute cholecystitis 11/25/2002 05/07/19 19 Diaphragmatic hernia 019 documented as of this encounter (statuses as of 05/16/2023) Immunizations Name Administration Dates Next Due COVID-19 [...] Packs/Day Years Used Date Smoking Tobacco: Never Smokeless Tobacco: Never Alcohol Use Standard [...] on file documented as of this encounter Progress Notes * Mary Jo Gar OSA - 03/21/2023 3:56 PM EST 03/21/2023 - Received medication. Defer to 05/16/2023 to order refill. Estimated Delivery Date: received 03/21/2023 - [facility] Appointment Date: 03/16/2023 Ordered Date: 03/02/2023 Delivery Address: Attn: [address] floor [address] [place] [address] RX: Eligard Dose: 22.5mg 3 mo Quantity: 1 Manufactured Supplied: No Refills remaining: Injection Number for this order: Next Refill: 05/16/2023 Upcoming Appt: 05/30/2023 * Jordan Andrade OSA - 03/14/2023 2:29 PM EST 03/15/2023 - "Caterina, our buying team said they are waiting to hear from a front office representative from [facility] regarding the ordering issue but we have not heard back yet. We can look into trying to dispense an alternative, but currently we don't have anything else in our product formulary other than the specificNDC that was prescribed (which is what we've been filling and what we're trying to track down) but if that's not a possbility we'll look into an alternative that's billable through his insurance. I do hope to get you a solution opal!" - Per Vida Mcwilliams 03/14/2023 - Per Vida Kelly at [facility] "Piyush Aponte Eligard did not come in today [facility] Vida Mcwilliams is working with the buying team to see if it'll come tomorrow." Message to Vida Mcwilliams to keep updated on progress, appt has been moved from 03/16 to 03/23. Push out 1 day to follow up on drug status. Estimated Delivery Date: Missing Eligard, Pending Alternative - appt 03/23 * Jordan Andrade OSA - 03/02/2023 8:00 AM EST POM Reason: Insurance mandated Insurance Info: [employer] Medicare Advantage Auth Expirin06/05/2025 Pharmacy/Company: [facility] Phone number: MARS sterile supply technician [place] Location: [facility] Estimated Delivery Date: 03/21/2023 - P Appointment Date: 03/16/2023 Ordered Date: 03/02/2023 Delivery Address: Attn: [address]th floor [address] [place] [address] RX: Eligard Dose: 22.5mg 3 mo Quantity: 1 Manufactured Supplied: No Refills remaining: Injection Number for this order: Paid Claim at time of order: Valid Prior Auth on File at Ordering Pharmacy: Commercial Insurance: Co pay card on file: Medicare Insurance: Co pay assistance: Last Treatment Date: 06/16/2022 Next Refill: 03/02/2023 Upcoming Appt: 03/16/2023 Prescribing Physician: Stan Parra [place] Schedule: Q3 months x 4 DX: C61 Prostate Cancer * Jordan Andrade OSA - 02/08/2023 8:07 AM EST 02/08/2023 - Appt is 03/16/2023 , defer to 03/02/2023 to order Eligard from [facility] * Galina Barnett OSA - 12/06/2022 2:21 PM EDT Krysta Lr, plate inspector 12/06/2022 13:58 | Received 1 kit of Eligard 12/06/2022 Estimated Delivery Date: Received 12/06/2022-[facility] ABEL Donald [facility] 12/06/2022, 2:21 PM * Mary Jo Gar OSA - 11/27/2022 9:02 AM EDT 11/27/2022 - IM'd [facility] to fill. Medication ordered. Defer to 12/06/2022 for delivery. POM Reason: Insurance mandated Insurance Info: [employer]na Medicare Advantage Auth Expirin06/05/2025 Pharmacy/Company: [facility] Phone number: IM sterile supply technician [place] Location: [facility] Estimated Delivery Date: 12/06/2022 - [facility] Appointment Date: 12/11/2022 Ordered Date: 11/27/2022 Delivery Address: Attn: [address] floor [address] [place] [address] RX: Eligard Dose: 22.5mg 3 mo Quantity: 1 Manufactured Supplied: No Refills remaining: Injection Number for this order: comes to clinic for injections Paid Claim at time of order: Valid Prior Auth on File at Ordering Pharmacy: Commercial Insurance: Co pay card on file: Medicare Insurance: Co pay assistance: Last Treatment Date: 06/16/2022 Next Refill: 11/20/2022 Upcoming Appt: 12/04/2022 Prescribing Physician: Stan Parra [place] Schedule: Q3 months x 4 DX: C61 Prostate Cancer ABEL Cerrato [facility] 11/27/2022, 1:19 PM * Mary Jo Gar OSA - 11/20/2022 12:01 PM EDT 11/20/2022 - Defer to 01/27/2023 to order refill. ABEL Cerrato [facility] 11/20/2022, 12:02 PM * Mary Jo Gar OSA - 08/31/2022 10:15 AM EDT 09/08/2022 - Received medication per pharmacy staff. Defer 11/20/2022 for refill. 08/31/2022 - IM'd [facility] for refill. Defer to 09/07/2022 for delivery. POM Reason: Insurance mandated Insurance Info: [employer]na Medicare Advantage Auth Expirin06/05/2025 Pharmacy/Company: [facility] Phone number: MARS sterile supply technician [place] Location:[facility] Estimated Delivery Date: received 09/07/2022 - [facility] Appointment Date: 09/11/2022 Ordered Date:08/31/2022 Delivery Address:Attn: [address] floor [address] [place] [address] RX:Eligard Dose:22.5mg 3 mo Quantity:1 Manufactured Supplied:No Refills remaining: Injection Number for this order: 2nd of 4 Paid Claim at time of order: Valid Prior Auth on File at Ordering Pharmacy: Commercial Insurance: Co pay card on file: Medicare Insurance: Co pay assistance: Last Treatment Date:06/16/2022 Next Refill: 11/20/2022 Upcoming Appt: 12/04/2022 Prescribing Physician:Stan Parra [place] Schedule:Q3 months x 4 DX:C61 Prostate Cancer ABEL Cerrato [facility] 08/31/2022, 10:18 AM * Liza Hoff OSA - 06/15/2022 2:56 PM EDT Estimated Delivery Date: Received 06/15/2022 - [facility] * Mary Jo Gar OSA - 06/14/2022 11:44 AM EDT 06/14/2022 - IM'd [facility] to fill script. Defer to 06/15/2022 for delivery. POM Reason: Insurance mandated Insurance Info: [employer]na Medicare Advantage Auth Expirin06/05/2025 Pharmacy/Company: [facility] Phone number: MARS sterile supply technician [place] Location: [facility] Estimated Delivery Date: 06/15/2022 - [facility] Appointment Date: 06/16/2022 Ordered Date:06/14/2022 Delivery Address: Attn: [address] [place] [address] RX: Eligard Dose: 22.5mg 3 mo Quantity: 1 Manufactured Supplied: No Refills remaining: Injection Number for this order: 1st Paid Claim at time of order: Valid Prior Auth on File at Ordering Pharmacy: Commercial Insurance: Co pay card on file: Medicare Insurance: Co pay assistance: Last Treatment Date: NA Next Refill: 08/25/2022 Upcoming Appt: Prescribing Physician: Stan Parra [place] Schedule: Q3 months x 4 DX: C61 Prostate Cancer ABEL Cerrato [facility] 06/14/2022, 11:50 AM * Galina Barnett OSA - 06/07/2022 9:47 AM EDT 06/07/2022- Reached out to Alba Iqbal for test claim POM Reason: Insurance Info: Auth Expiring: Pharmacy/Company: Phone number: [place] Location: [facility] Estimated Delivery Date: TBD Appointment Date: Ordered Date: Delivery Address: Attn: [facility] [address] [place] [address] RX: Eligard Dose: 22.5mg 3 mo Quantity: 1 Manufactured Supplied: No Refills remaining: Injection Number for this order: Paid Claim at time of order: Valid Prior Auth on File at Ordering Pharmacy: Commercial Insurance: Co pay card on file: Medicare Insurance: Co pay assistance: Last Treatment Date: NA Next Refill: Upcoming Appt: Prescribing Physician: Stan Parra [place] Schedule: Q3 months x 4 DX: C61 Prostate Cancer ABEL Donald [facility] 06/07/2022, 10:14 AM documented in this encounter Plan of Treatment Upcoming Encounters Date Type Department Care Team (Late st Contact Info) Description 05/22/2023 4:30 PM EDT Laboratory Laboratory [facility] [address] [place] [id number] [address]ila [address] [place] [address] 05/23/2023 9:30 AM EDT Pharmacy Pharmacy Hematology Oncology [facility] [address] [place] [address] [facility] Hem/Onc [address] [place] [address] 05/31/2023 9:40 AM EDT Office Visit [facility] [address] [place] [address] [place] [address] Kaz Rivas III, MD [address] [place] [address] 06/22/2023 1:20 PM EDT Laboratory Laboratory [facility] [address] [place] [address] [place] [id number] [address] [place] [address] 06/22/2023 2:30 PM EDT Telemedicine Hematology/Oncology, [address] [address] Stan Parra MD [address] [place] [address] Cart, Telemed [facility] [address] [place] [address] 06/22/2023 3:00 PM EDT Immunization/Injection Hematology/Oncology Treatment, [address] [address] [facility] Hem Onc [address] [place] [address] 11/06/2023 9:45 AM EDT Imaging Radiology [facility] [address]st [facility] [place] [address] [facility] [place] [address] 11/14/2023 1:00 PM EDT Office Visit Radiation Oncology, [facility] [address] [place] [address] Crescencio Obrien MD [address] [facility] [place] [address] Scheduled Procedures Name Priority [...] Additional history exists Lipid Panel 12/12/2027 12/11/2022, 02/05/2022, 03/21/2021, Additional history exists Pneumococcal Vaccine: 65+ [...] the patient have Health Care Power of Mill Representative? Yes, not currently available Care Teams Lead Welder Relationship Specialty Start Date End Date Kaz Rivas III, MD [address] [place] [address] PCP - General 10/25/1995 documented as of this encounter
--- OUTSIDE RECORDS SUMMARY | 2023-05-26 18:08 | External Medical Summary ---
Author Name Unknown Address Unknown Organization K01:LABORATORY [facility] - [address] [facility] [address] Laboratory Report Ordering Provider Test Date Status ANGELICA CURRIE 05/15/2023 14:48:38 Final Observation Date Value Abnormality Reference (Units ) Status Adenovirus DNA [Presence] in Nasopharynx by KRIS with non-probe detection 05/15/2023 14:48:38 Negative Negative Final Human coronavirus 229E RNA [Presence] in Nasopharynx by RKIS with non-probe detection 05/15/2023 14:48:38 Negative Negative Final Human coronavirus HKU1 RNA [Presence] in Nasopharynx by KRIS with non-probe detection 05/15/2023 14:48:38 Negative Negative Final Human coronavirus NL63 RNA [Presence] in Nasopharynx by KRIS with non-probe detection 05/15/2023 14:48:38 Negative Negative Final Human coronavirus OC43 RNA [Presence] in Nasopharynx by KRIS with non-probe detection 05/15/2023 14:48:38 Negative Negative Final SARS-CoV-2 (COVID-19) RNA [Presence] in Nasopharynx by KRIS with non-probe detection 05/15/2023 14:48:38 Negative Negative Final Human metapneumovirus RNA [Presence] in Nasopharynx by KRIS with non-probe detection 05/15/2023 14:48:38 Negative Negative Final Rhinovirus+Enterovirus RNA [Presence] in Nasopharynx by KRIS with non-probe detection 05/15/2023 14:48:38 Negative Negative Final Influenza virus A H3 RNA [Presence] in Nasopharynx by KRIS with non-probe detection 05/15/2023 14:48:38 Positive Abnormal Negative Final Influenza A virus Subtype H3 detected by PCR (amplified probe). Test results reported to [facility]. Influenza virus B RNA [Prese nce] in Nasopharynx by KRIS with non-probe detection 05/15/2023 14:48:38 Negative Negative Final Parainfluenza virus 1 RNA [P resence] in Nasopharynx by KRIS with non-probe detection 05/15/2023 14:48:38 Negative Negative Final Parainfluenza virus 2 RNA [P resence] in Nasopharynx by KRIS with non-probe detection 05/15/2023 14:48:38 Negative Negative Final Parainfluenza virus 3 RNA [P resence] in Nasopharynx by KRIS with non-probe detection 05/15/2023 14:48:38 Negative Negative Final Parainfluenza virus 4 RNA [P resence] in Nasopharynx by KRIS with non-probe detection 05/15/2023 14:48:38 Negative Negative Final Respiratory syncytial virus RNA [Presence] in Nasopharynx by KRIS with non-probe detection 05/15/2023 14:48:38 Negative Negative F inal Bordetella pertussis.pertuss is toxin promoter region [Presence] in Nasopharynx by KRIS with non-probe detection 05/15/2023 14:48:38 Negative Negative Final Chlamydophila pneumoniae DNA [Presence] in Nasopharynx by KRIS with non-probe detection 05/15/2023 14:48:38 Negative Negative Final Mycoplasma pneumoniae DNA [P resence] in Nasopharynx by KRIS with non-probe detection 05/15/2023 14:48:38 Negative Negative Final Bordetella parapertussis IS1 001 DNA [Presence] in Nasopharynx by KRIS with non-probe detection 05/15/2023 14:48:38 Negative Negative F inal
The primers that detect Rhinovirus may cross react with some Enterorviruses. The validation of bronchial specimens, tracheal aspirates, and throats for this assay was developed and performance characteristics determined by [employer]. The validation of alternate specimen types has not been cleared or approved by the U.S. Food and Drug Administration (FDA). It has been determined that such clearance or approval is not necessary. Performing Location LAB[facility]ATORY [facility] - [address] [facility]. [facility] [address]
--- OUTSIDE RECORDS SUMMARY | 2023-05-26 18:08 | External Medical Summary | Summary of Care ---
Author Name Unknown Organization [facility] Address [address] [place] [address] Phone [phone] Care Team Providers Care Escort Service Attendant Name Role Phone Evelyn FRANZ MD, Kaz Canela Primary Care Provider [phone] Reason for Visit * Reason Comments Medication Management Encounter Details Date Type Department Care Team (Late st Contact Info) Description 05/23/2023 9:30 AM EDT Pharmacy Pharmacy Hematology Oncology [facility] [address] [place] [address] [facility] [place], [facility] Clinic Hem/Onc [address] [place] [address] Malignant neoplasm of prostate (HCC)* Allergies Active Allergy Reactions Criticality Noted Date Comments Levofloxacin Muscle pain 02/07/2018 Oxycodone Nausea/vomiting 02/07/2018 documented as of this encounter (statuses as of 05/23/2023) Medications Medication Sig Dispensed Refills Start Date [...] days. 20 Tablet 0 05/15/2023 05/25/2023 Active predniSONE 5 MG Oral Tablet (Deltasone)Indicati ons:Malignant neoplasm of prostate (HCC) Take 1 tablet by mouth in the morning. 30 Tablet 5 05/22/2023 Active Abiraterone Acetate 250 MG Oral Tablet (Zytiga)Indications :Malignant neoplasm of prostate (HCC) Take 1 Tablet by mouth in the morning. 30 Tablet 5 05/22/2023 Active documented as of this encounter (statuses as of 05/23/2023) Active Problems Problem Noted Date Diagnosed Date [...] as of this encounter (statuses as of 05/23/2023) Resolved Problems Problem Noted Date Diagnosed Date Resolved Date Supraclavicular lymphadenopathy 02/11/2016 01/02/2018 Screening for prostate cancer 04/15/2003 05/20/2008 Overview: Resolved per Screening Diagnosis Protocol #6 Acute cholecystitis 11/25/2002 05/07/19 19 Diaphragmatic hernia 019 documented as of this encounter (statuses as of 05/23/2023) Immunizations Name Administration Dates Next Due COVID-19 [...] as of this encounter Progress Notes * Renetta Pagan, [facility] - 05/23/2023 9:18 AM EDT MEDICATION THERAPY MANAGEMENT ABIRATERONE TREATMENT PROGRESS NOTE Piyush Aponte [id number] Patient Phone Numbers Preferred Lab: [facility] Specialty Pharmacy: [facility] Communication: Left message requesting return call to assess toleration to therapy Treatment: Medication: Abiraterone (Zytiga) Indication/Staging/Diagnosis Code: mCSPC / Stage IIIC / C61 Dose: 250mg daily ( 07/17/22) Administration: with food Start Date: 06/05/22 Primary Senior Graduate Advisor/Oncologist: Dr. Parra Additional Therapy: Prednisone 5mg daily Lupron Ondansetron Treatment History: 05/2018: bicalutamide 06/05/18-09/10/20; 05/2022-present: Lupron 08/19/18-10/14/18: RT Interval History: Per OV 07/17/22, pt advised to reduce abiraterone to 250mg daily with breakfast Changes to medication list since last visit? No Assessment and Plan: PSA at goal BP improving to WNL All other labs stable Continue current therapy and monthly labs (next due with OV) Assessment of compliance: N/A Assessment of adverse effects attributed to drug therapy: N/A Dose adjustment needed based on lab or adverse drug reaction? No Follow up: 1 month OV/labs; 2 months MTM with labs Renetta Pagan, PharmD, BCOP Clinical Pharmacist, [facility] Oral Chemotherapy [facility] 05/23/2023, 9:40 AM Monitoring Parameters: Estimated CrCl Serum creatinine: 0.8 mg/dL 05/22/23 1438 Estimated creatinine clearance: 99.3 mL/min Hepatitis panel Latest Reference Range & Units 05/22/22 12:26 Hepatitis B Surface Antigen Negative Negative Hepatitis B Surface Antibody, Quantitative mIU/mL <3.5 HEPATITIS B SURFACE ANTIBODY Rpt Hepatitis B Surface Antibody, Interpretation NOT immune to Hepatitis B Virus Hepatitis B Surface Antibody, Qualitative Negative Hepatitis B Core Antibodies IgG and IgM Negative Negative test N/A Suggested lab monitoring Suggested lab monitoring: LFTs baseline, every 2 weeks x 3 months, then every month (patients with moderate hep impairment: every 1 week x 1 month, every two weeks x 2 months, then every month), BMP baseline and monthly; BP baseline and monthly Treatment Parameters Per PI Pertinent labs: Latest Reference Range & Units 04/02/23 10:09 04/23/23 16:23 05/22/23 14:38 Albumin 3.8 - 5.0 g/dL 4.1 4.0 4.1 AST 10 - 50 U/L 23 22 22 ALT 10 - 50 U/L 8 (L) 6 (L) 11 Alkaline Phosphatase 35 - 130 U/L 85 96 85 Bilirubin, Total <=1.2 mg/dL 0.5 0.3 0.3 Latest Reference Range & Units 12/11/22 08:25 03/21/23 16:35 05/22/23 14:38 PSA <4.10 ng/mL 0.04 0.03 0.03 03/23/2023 05/03/2023 05/15/2023 BP AND WT. Systolic 161 146 126 Systolic 161 Diastolic 89 83 80 Diastolic 89 Time Spent on Encounter: 6 - 10 minutes Encounter Group: Oncology Encounter Interventions Item Category: Oral Chemotherapy Abiraterone Problem/Rationale: Effectiveness: Needs additional monitoring - Medication Requires monitoring Safety: Needs additional monitoring - Medication Requires monitoring Pharmacist Intervention(s): Lab monitoring Magnitude of Intervention: Monitoring with direction (Level 1) documented in this encounter Plan of Treatment Upcoming Encounters Date Type Department Care Team (Late st Contact Info) Description 05/31/2023 9:40 AM EDT Office Visit Family Practice [facility] [place] [address] [place] [address] Kaz Rivas III, MD [address] [place] [address] 06/22/2023 1:20 PM EDT Laboratory Laboratory [facility] [place] [address] [place] [phone] [facility] [address] [facility] [place] [address] 06/22/2023 2:30 PM EDT Telemedicine Hematology/Oncology, [address] [address] Stan Parra MD [address] [place] [address] Cart, Telemed [facility] [address] [place] [address] 06/22/2023 3:00 PM EDT Immunization/Injection Hematology/Oncology Treatment, [address] [address] [facility], Chair Hem Onc [address] [place] [address] 07/20/2023 9:30 AM EDT Pharmacy Pharmacy Hematology Oncology [facility] [address] [place] [address] [facility] [place], [facility] Clinic Hem/Onc [address] [place] [address] 11/06/2023 9:45 AM EDT Imaging Radiology [address], [place] [address] [facility] [place] [address] 11/14/2023 1:00 PM EDT Office Visit Radiation Oncology, [facility] [address] [place] [address] Crescencio Obrien MD [address] [facility] [place] [address] Scheduled Procedures Name Priority Associated Diagnoses Date/Ti [...] prostate (HCC)- Primary Malignant neoplasm of prostate documented in this [...] the patient have Health Care Power of Lug Loader? Yes, not currently available Care Teams Escort Service Attendant Relationship Specialty Start Date End Date Kaz Rivas III, MD [address] [place] [address] PCP - General 10/25/1995 documented as of this encounter
--- OUTSIDE RECORDS SUMMARY | 2023-05-26 18:08 | External Medical Summary | Summary of Care ---
Author Name Unknown Organization [facility] Address [address] [place] [address] Phone [phone] Care Team Providers Care Analyst Market Intelligence Name Role Phone Evelyn FRANZ MD, Kaz Canela Primary Care Provider [phone] Reason for Referral * Precert (Within 10 days (routine)) - Pending Review Specialty Diagnoses / Procedures Referred By Aj pendleton Referred To Contact Radiology Diagnoses Metastatic malignant neoplasm to prostate (HCC) Procedures PET CT SKULL BASE TO MID THIGH PSMA Crescencio Obrien MD [address] [place] [address] Referral ID Status Reason Start Date Expiration Date V isits Requested Visits Authorized [id number] Pending Review 11/01/2023 999 999 Reason for Visit * Reason Comments Follow Up Prostate cancer with mets to bone and abd LN Encounter Details Date Type Department Care Team (Late st Contact Info) Description 05/03/2023 1:30 PM EST Office Visit Radiation Oncology, [facility] [address] [place], [place] [id number] Crescencio Obrien MD [address] [place] [address] Malignant neoplasm of prostate (HCC)*; Metastatic malignant neoplasm to prostate (HCC) Allergies Active Allergy Reactions Criticality [...] on 08/22/2022 Sucralfate 1 GM Oral Tablet (Carafate)Indicatio ns:Gastritis [...] 12/12/2022 Active Ondansetron HCl 8 MG Oral TabletIndications:A KI (acute kidney injury) ([facility]),Nausea Take 1 Tablet by mouth every 8 hours as needed for Nausea or Vomiting. 60 Tablet 0 03/23/2023 Active Tamsulosin HCl 0.4 MG Oral Capsule (Flomax)Indications :in evening Take 1 Capsule by mouth in the morning. 90 Capsule 3 05/02/2023 Active documented as of this encounter (statuses [...] Passive Smoke Exposure: Never Smokeless Tobacco: Never Tobacco Cessation:Counseling Given: Not Answered Alcohol Use Standard Drinks/Week Comments No 0 [...] Sign Reading Time Taken Comments Blood Pressure 146/83 05/03/2023 1:49 PM EST Pulse 84 05/03/2023 1:49 PM EST Temperature 36.4 C (97.5 F) 05/03/2023 1:49 PM ES T Respiratory Rate 18 05/03/2023 1:49 PM EST Oxygen Saturation 97% 05/03/2023 1:49 PM EST Inhaled Oxygen Concentration - - Weight 95.3 kg (210 lb) 05/03/2023 1:49 PM EST Height - - Body Mass Index 28.48 03/18/2022 3:25 PM EST documented in this encounter Progress Notes * Crescencio Obrien MD - 05/05/2023 11:26 PM EST RADIATION ONCOLOGY FOLLOW-UP NOTE [facility] Piyush López Fadi [id number] 72 year old Piyush F Fadi was seen in follow-up in Radiation Oncology on 05/03/2023. REFERRING PHYSICIAN: Dr. Vy Parra SITE OF MALIGNANCY: T6 vertebral body, lower abdominal lymph node HISTOPATHOLOGY: Adenocarcinoma, Derek score 4+5 = 9. 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 PSA 20.8 (03/07/2018) STAGE: [id number], IIIC (2018) Now M1, with abnormal uptake on Pylarify PET (oligomets: T6 and abdominal LN) CURRENT THERAPY: S/p LT-ADT, Lupron started 06/05/2018, switched to Eligard, final dose of Eligard, 3mo dose, given 09/10/2020. S/p Casodex, started 05/29/2018., completed SBRT PRIOR THERAPY: S/p definitive radiation therapy to pelvis/prostate completed 10/14/2018 The total radiation dose was 8000 cGy in 40 fractions total dose. (4600 cGy in 23 fractions to the pelvic lymph nodes. This was followed by further cone down after no other 1800 cGy or 6400 cGy in 32fractions. Final total dose to PTV 3/reduced volume carry to 8000 cGy in 40 fractions). All treatments given in 200 cGy per fraction. The patient tolerated radiation therapy extremely well. Patient noted only mild urinary side effects during the last couple weeks of his radiation therapy. S/p SB RT to 2 sites of oligo Mets, para-aortic LN and T6 vertebra, completed 06/26/2022, The total radiation dose for T6 vertebra was 2400 cGy in 3 fractions. The total radiation dose for para-aortic LN was 2500 cGy in 5 fractions. INTERVAL HISTORY: Seen today in Radiation Oncology Clinic for routine follow-up visit of his Metastatic prostate cancer. completied SB RT to 2 sites oligo Mets involving T6 spine and abdominal lymph node, treatments completed 06/26/2022. He tolerated treatments well. No acute side effects. In the interim he reports he is feeling okay. He was recently started on Zytiga and could not tolerate the initial dose and this was reduced. He states he is taking reduced dose, no longer bothered by the side effects. He otherwise denies any New symptoms. He had follow-up CT abdomen/pelvis with IV and with oral contrast 10/24/2022 that reported: IMPRESSION Nonspecific 2.1 centimeter hypodensity in the spleen, previously 1.9 centimeters. Previous 14 millimeter inter aortocaval lymph node now measures 6 millimeters. I reviewed the above imaging study as well as previous imaging from this CT Sim of 06/06/2022 that was performed just prior to his SBRT tx, and agree with he findings. There is excellent response overall. Benefit from follow-up PSMA PET next time. Medications were reviewed and updated. PHYSICAL EXAMINATION: BP 146/83 (BP Site: Left Arm, BP Position: Sitting, BP Cuff Size: Regular) | Pulse 84 | Temp 36.4 C (97.5 F) (Infrared ) | Resp 18 | Wt 95.3 kg (210 lb) | SpO2 97% | BMI 28.48 kg/m | BSA 2.2 m Wt Readings from Last 4 Encounters: 05/03/23 95.3 kg (210 lb) 03/23/23 96.5 kg (212 lb 12.8 oz) 12/12/22 92 kg (202 lb 14.4 oz) 11/22/22 92.1 kg (203 lb) ZUBROD PERFORMANCE SCALE: 1 restricted in physically strenuous activity but ambulatory and able to carry out work of a light or sedentary nature (light housework or office work) Weight: weight recently stable General: alert and oriented, no apparent distress, cognition normal, speech normal and swallow normal Back: no tenderness to spinal palpation and percussion Skin: no skin lesions Lymphatics: no pre-auricular or post-auricular adenopathy, no cervical adenopathy, no supraclavicular adenopathy, no infravicular adenopathy and no inguinal adenopathy Lungs: air entry good, no clubbing, trachea central, clear to percussion, auscultation and no adventitial breath sounds Cardiovascular: regular rate and rhythm and no murmurs Abdomen: soft non-tender and non-distended, positive bowel sounds and no hepatosplenomegaly Lower extremities: mildly-edematous bilaterally Neurologic: Grossly no focal deficits RECENT LABS: Results for orders placed or performed in visit on 04/23/23 CBC Result Value Ref Range WBC 7.37 4.00 - 10.80 K/uL RBC 4.48 4.50 - 5.25 M/uL HGB 13.4 (L) 14.0 - 16.8 g/dL HCT 40.2 40.0 - 48.4 % MCV 89.7 82.0 - 99.5 fL MCH 29.9 27.0 - 34.0 pg MCHC 33.3 32.0 - 36.0 g/dL RDW 13.3 11.5 - 15.5 % PLT 192 140 - 400 K/uL MPV 10.0 6.6 - 11.1 fL Results for orders placed or performed in visit on 04/23/23 DIFFERENTIAL, AUTOMATED Result Value Ref Range WBC 7.37 4.00 - 10.80 K/uL Neutrophils % 80.8 (H) 40.0 - 75.0 % Lymphocytes % 11.5 (L) 18.0 - 42.0 % Monocytes % 7.3 1.0 - 11.0 % Eosinophils % 0.1 0.0 - 6.0 % Basophils % 0.3 0.0 - 2.0 % Absolute Neutrophils 5.95 1.80 - 7.70 K/uL Absolute Lymphocytes 0.85 (L) 1.00 - 4.80 K/ul Absolute Monocytes 0.54 0.00 - 1.10 K/uL Absolute Eosinophils 0.01 0.00 - 0.70 K/uL Absolute Basophils 0.02 0.00 - 0.20 K/uL CBC Result Value Ref Range WBC 7.37 4.00 - 10.80 K/uL RBC 4.48 4.50 - 5.25 M/uL HGB 13.4 (L) 14.0 - 16.8 g/dL HCT 40.2 40.0 - 48.4 % MCV 89.7 82.0 - 99.5 fL MCH 29.9 27.0 - 34.0 pg MCHC 33.3 32.0 - 36.0 g/dL RDW 13.3 11.5 - 15.5 % PLT 192 140 - 400 K/uL MPV 10.0 6.6 - 11.1 fL Results for orders placed or performed in visit on 06/22/17 CBC/DIFF Result Value Ref Range WBC 6.72 4.00 - 10.80 K/uL RBC 5.04 4.50 - 5.25 M/uL HGB 14.9 14.0 - 16.8 g/dL HCT 44.2 40.0 - 48.4 % MCV 87.7 82.0 - 99.5 fL MCH 29.6 27.0 - 34.0 pg MCHC 33.7 32.0 - 36.0 g/dL RDW 14.2 11.5 - 15.5 % PLT 158 140 - 400 K/uL MPV 10.5 6.6 - 11.1 fL Neutrophils % 75.8 (H) 40 - 75 % Lymphocytes % 14.9 (L) 18 - 42 % Monocytes % 8.3 1 - 11 % Eosinophils % 0.9 0 - 6 % Basophils % 0.1 0 - 2 % Absolute Neutrophils 5.09 1.8 - 7.7 K/uL Absolute Lymphocytes 1.00 1.0 - 4.8 K/uL Absolute Monocytes 0.56 0.0 - 1.1 K/uL Absolute Eosinophils 0.06 0.0 - 0.7 K/uL Absolute Basophils 0.01 0.0 - 0.2 K/uL Results for orders placed or performed in visit on 04/23/23 COMPREHENSIVE METABOLIC PANEL Result Value Ref Range BUN 19 6 - 20 mg/dL Creatinine 0.9 0.6 - 1.2 mg/dL Estimated Glomerular Filtration Rate >90 >=60 mL/min Sodium 141 135 - 146 mmol/L Potassium 4.0 3.5 - 5.1 mmol/L Chloride 105 98 - 107 mmol/L CO2 27 22 - 32 mmol/L Anion Gap 9 7 - 15 mmol/L Glucose 80 70 - 120 mg/dL Albumin 4.0 3.8 - 5.0 g/dL AST 22 10 - 50 U/L Alkaline Phosphatase 96 35 - 130 U/L Bilirubin, Total 0.3 <=1.2 mg/dL Calcium 9.2 8.4 - 10.2 mg/dL Protein 6.8 6.0 - 8.3 g/dL ALT 6 (L) 10 - 50 U/L RECENT RADIOGRAPHIC IMAGING: Nil ASSESSMENT: 72year-old male with adenocarcinoma prostate, Derek score 4+5 = 9. Prostate biopsy/date of diagnosis 04/30/2018. 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 PSA 03/07/2018 was 20.8 Clinical stage T2c cN0 M0, Derek score 9, PSA 20.8. NCCN very high risk disease category. S/p long-term ADT. Started Casodex 05/29/2018 x1 month, Lupron started 06/05/2018. Final dose of Eligard, 3 month dose, on 09/10/2020. S/p definitive radiation therapy to the pelvis/prostate, completed 10/14/2018. Tolerated treatmentswell. PSA 03/09/2021 was low at 0.38, and by September 2021, began slowly increasing. Recent PSMA PET 04/13/2022, showed 2 areas of oligo metastases, at T6 and para- aortic lymph node. Pt remains asymptomatic. Above 2 sites of oligomets, treated with SBRT completed 06/26/2022. Tolerated treatments well. No acute side effects. Started abiraterone with Dr. Parra in May. Leuprolide started 06/16/2022. Abiraterone dose redued to 250mg due to side effects, now tolerating it well. . Follow-up CT abdomen pelvis 10/24/2022 show excellent response with SBRT. Clinically doing well. Clinically stable- good response with SBRT PLAN: The patient will follow-up in Radiation Oncology in 6 months. Follow-up with other physicians is as already scheduled. The patient will contact us in the meantime with questions or concerns. Thank you for having asked us to take part in this patient's care. I spent a total of 30-39 minutes (exact time 31 mins) on the date of service in preparation, delivery, and documentation of the care provided to Piyush Aponte excluding any time spent in the performance of separately billed services. Crescencio Obrien MD 05/03/2023 documented in this encounter Nursing Notes * Venessa Correa, NOEMI - 05/03/2023 1:41 PM EST Chief Complaint Patient presents with Follow Up Prostate cancer with mets to bone and abd LN Patient presents alone for 6 month return today. He completed 3 fractions to T6 on 06/21/22 and 5 fractions to lower abdominal lymph node on 06/26/22. Patient reports he has been doing well on his Zytiga dose. He has follow up visit with his medical oncologist Dr. Parra on 06/22/23. Dr. Obrien was in to examine patient. Dr. Obrien would like patient to have a PSMA PET scan in 6 months to follow up. Patient will then have follow up visit 1 week after scan to review results. documented in this encounter Plan of Treatment Upcoming Encounters Date Type Department Care Team (Late st Contact Info) Description 05/22/2023 4:30 PM EDT Laboratory Laboratory [facility] [employer] [address] [place] [phone] [place] [address] [place] [address] 05/23/2023 9:30 AM EDT Pharmacy Pharmacy Hematology Oncology [facility] [address] [place] [address] [facility] [place] Hem/Onc [address] [place] [address] 05/31/2023 9:40 AM EDT Office Visit Family Practice [facility] [address] [place], [place] [address] Kaz Rivas III, MD [address] [place], [place] [address] 06/22/2023 1:20 PM EDT Laboratory Laboratory [facility] [address] [place] [phone] [place] Lab [facility] [address] [facility] [address] [place], [place] [address] 06/22/2023 2:30 PM EDT Telemedicine Hematology/Oncology, [facility] [address] [place] [address] Stan Parra MD [address] [place] [address] [facility] Hem Onc Clinic [address] [place] [address] 06/22/2023 3:00 PM EDT Immunization/Injection Hematology/Oncology Treatment, [facility] [address] [place] [address] [facility], Chair10 Hem Onc [address] [facility] [place] [address] 11/06/2023 9:45 AM EDT Imaging Radiology [address], [place] [address] [place] [address] 11/14/2023 1:00 PM EDT Office Visit Radiation Oncology, [facility] [address] [facility] [place] [address] Crescencio Obrien MD [address] [facility] [place] [address] Scheduled Orders Name Type Priority Associated Diagnoses Orde r Schedule PET CT SKULL BASE TO MID THIGH PSMA Medical Imaging Routine Metastatic malignant neoplasm to prostate (HCC) Expected: 11/01/2023, Expires: 05/31/2024 Scheduled Procedures Name Priority Associated Diagnoses Date/Ti me COLONOSCOPY FLEXIBLE PROXIMA L DIAGNOSTIC Recall History of colonic polyps Health Maintenance Due Date Last Done Comments Depression Screening 01/04/2020 01/03/2019 DTaP,Tdap,and Td Vaccines (2 - Td or Tdap) 08/25/2020 08/25/2010 COVID-19 Vaccine ( - 2022- season) 2022 04/06/2021, 05/21/2020, 04/23/2020 [...] prostate (HCC)- Primary Malignant neoplasm of prostate Metastatic malignant neoplasm to prostate (HCC) Secondary malignant neoplasm of genital organs documented in this encounter Advance Directives Latest [...] the patient have Health Care Power of Quality Assurance Tester? Yes, not currently available Care Teams Analyst Market Intelligence Relationship Specialty Start Date End Date Kaz Rivas III, MD [address] [place] [address] PCP - General 10/25/1995 documented as of this encounter"
--- OUTSIDE RECORDS SUMMARY | 2023-05-26 18:09 | External Medical Summary | Summary of Care ---
Author Name Unknown Organization [facility] Address [address] [place] [address] Phone [phone] Care Team Providers Care Can Doffer Name Role Phone Evelyn FRANZ MD, Kaz Canela Primary Care Provider [phone] Encounter Details Date Type Department Care Team (Late st Contact Info) Description 03/23/2023 Orders Only Hematology/Oncology, [address] [phone] Stan Parra MD [address] [place] [address] Malignant neoplasm of prostate (HCC)* Allergies Active Allergy Reactions Criticality Noted Date Comments Levofloxacin Muscle pain 02/07/2018 Oxycodone Nausea/vomiting 02/07/2018 documented as of this encounter (statuses as of 03/23/2023) Medications Medication Sig Dispensed Refills Start Date [...] Additional Information Patient not taking.Reported on 08/22/2022 Tamsulosin HCl 0.4 MG Oral Capsule (Flomax)Indications :in evening Take 1 Capsule by mouth in the morning. 90 Capsule 3 08/09/2022 Active Sucralfate 1 GM Oral Tablet (Carafate)Indicatio [...] MG Oral TabletIndications:A KI (acute kidney injury) (HCC),Nausea Take 1 Tablet by mouth every 8 hours as needed for Nausea or Vomiting. 60 Tablet 0 03/23/2023 Active documented as of this encounter (statuses as of 03/23/2023) Active Problems Problem Noted Date Diagnosed Date [...] as of this encounter (statuses as of 03/23/2023) Resolved Problems Problem Noted Date Diagnosed Date Resolved Date Supraclavicular lymphadenopathy 02/11/2016 01/02/2018 Screening for prostate cancer 04/15/2003 05/20/2008 Overview: Resolved per Screening Diagnosis Protocol #6 Acute cholecystitis 11/25/2002 05/07/19 19 Diaphragmatic hernia 019 documented as of this encounter (statuses as of 03/23/2023) Immunizations Name Administration Dates Next Due COVID-19 [...] Care Team (Late st Contact Info) Description 04/02/2023 4:30 PM EST Laboratory Laboratory [place] [address] [place] [phone] [place] [address] [place] [address] 04/16/2023 9:30 AM EST Pharmacy Pharmacy Hematology Oncology [facility] [place] [address] [place] [address] [facility] Hem/Onc [address] [place] [address] 04/23/2023 4:30 PM EST Laboratory Laboratory [place] Esp[place] [address] [place] [phone] [place] [facility] Sc[facility]ery [address] [place] [address] 05/03/2023 1:30 PM EST Office Visit Radiation Oncology, [facility] [address] [place] [address] Crescencio Obrien MD [address] [place] [address] 05/22/2023 4:30 PM EDT Laboratory Laboratory [place] [facility] Shen [address] [place] [phone] [facility] Sc[facility]ery [address] [place] [address] 05/31/2023 9:40 AM EDT Office Visit Family Practice [facility] [address] [facility] [place] [address] Kaz Rivas III, MD [address] [facility] [place] [address] 06/20/2023 4:30 PM EDT Laboratory Laboratory [facility] [address] [facility] [place] [phone] [facility] [address] [facility] [place] [address] 06/22/2023 2:30 PM EDT Telemedicine Hematology/Oncology, [address] [phone] Stan Parra MD [address] [place] [address] Cart, Telemed [facility] Hem [facility]c [facility] [address] [place], [place] [phone] Scheduled Orders Name Type Priority Associated Diagnoses Orde r Schedule COMPREHENSIVE METABOLIC PANEL Lab STAT Malignant neoplasm of prostate (HCC) Expected: 04/02/2023, Expires: 03/23/2024 CBC WITH WBC DIFFERENTIAL Lab STAT Malignant neoplasm of prostate (HCC) Every Month for 12 Occurrences starting 03/23/2023 until 03/23/2024 Scheduled Procedures Name Priority Associated Diagnoses Date/Ti me COLONOSCOPY FLEXIBLE PROXIMA L DIAGNOSTIC Recall History of colonic polyps Health Maintenance Due Date Last Done Comments Depression Screening 01/04/2020 01/03/2019 DTaP,Tdap,and Td Vaccines (2 - Td or Tdap) 08/25/2020 08/25/2010 COVID-19 Vaccine ( season) 2022 04/06/2021, 05/21/2020, 04/23/2020 Influenza Vaccine (FLU shot) (#1) 2022 01/11/2022, 12/18/2019, 11/22/2018, Additional history exists GFR 03/21/2024 03/21/2023, 1204/2022, 01/11/2023, Additional history exists Albumin/Creatinine Ratio 10/05/2024 10/05/2021 [...] neoplasm of prostate documented in this encounter Advance Directives Latest [...] the patient have Health Care Power of Slat Basket Maker Machine? Yes, not currently available Care Teams Can Doffer Relationship Specialty Start Date End Date Kaz Rivas III, MD [address] [facility] [place] [address] PCP - General 10/25/1995 documented as of this encounter
--- OUTSIDE RECORDS SUMMARY | 2023-05-26 18:09 | External Medical Summary | Summary of Care ---
Author Name Unknown Organization [facility] Address [address] [place] [address] Phone [phone] Care Team Providers Care Ear Nose Throat Physician Name Role Phone Evelyn FRANZ MD, Kaz Canela Primary Care Provider [phone] Reason for Visit * Reason Comments Outpatient Testing Encounter Details Date Type Department Care Team (Late st Contact Info) Description 04/02/2023 10:10 AM EST Laboratory Laboratory Scenery [facility] [address] [place] [phone] [place], Lab Scenery [address] [place] [address] Malignant neoplasm of prostate (HCC) Allergies Active Allergy Reactions Criticality Noted Date Comments Levofloxacin Muscle pain 02/07/2018 Oxycodone Nausea/vomiting 02/07/2018 documented as of this encounter (statuses as of 04/02/2023) Medications Medication Sig Dispensed Refills Start Date [...] as of this encounter (statuses as of 04/02/2023) Active Problems Problem Noted Date Diagnosed Date [...] as of this encounter (statuses as of 04/02/2023) Resolved Problems Problem Noted Date Diagnosed Date Resolved Date Supraclavicular lymphadenopathy 02/11/2016 01/02/2018 Screening for prostate cancer 04/15/2003 05/20/2008 Overview: Resolved per Screening Diagnosis Protocol #6 Acute cholecystitis 11/25/2002 05/07/19 19 Diaphragmatic hernia 019 documented as of this encounter (statuses as of 04/02/2023) Immunizations Name Administration Dates Next Due COVID-19 [...] Care Team (Late st Contact Info) Description 04/16/2023 9:30 AM EST Pharmacy Pharmacy Hematology Oncology [facility] [address] [place] [address] [facility], [facility] Hem/Onc [address] [place] [address] 04/23/2023 4:30 PM EST Laboratory Laboratory [place] [address] [place] [phone] Zoila Shen [address] [place] [address] 05/03/2023 1:30 PM EST Office Visit Radiation Oncology, [address] [address] Crescencio Obrien MD [address] [place] [address] 05/22/2023 4:30 PM EDT Laboratory Laboratory State [place] [address] [place] [phone] [facility] Scenery [address] [place] [address] [address] 05/31/2023 9:40 AM EDT Office Visit Family Practice [place] [address] [place] [address] Kaz Rivas III, MD [address] [place] [address] [address] 06/20/2023 4:30 PM EDT Laboratory Laboratory Sc[place]ery [place] Shen [address] [place], [place] [address] [place], Lab Scenery [address] [facility] [place], [place] [address] 06/22/2023 2:30 PM EDT Telemedicine Hematology/Oncology, [address] [address] Stan Parra MD [address] [place] [address] Cart, Telemed [facility] Hem Onc Clinic [address] [place] [address] 06/22/2023 3:00 PM EDT Immunization/Injection Hematology/Oncology Treatment, [address] [address] [facility], Chair10 Hem Onc [address] [place] [address] Pending Results Name Type Priority Associated Diagnoses Date /Time COMPREHENSIVE METABOLIC PANEL Lab STAT Malignant neoplasm of prostate (HCC) 04/02/2023 10:09 AM EST CBC WITH WBC DIFFERENTIAL Lab STAT Malignant neoplasm of prostate (HCC) 04/02/2023 10:09 AM EST CBC Lab STAT Malignant neoplasm of prostate (HCC) 04/02/2023 10:09 AM EST DIFFERENTIAL, AUTOMATED Lab STAT Malignant neoplasm of prostate (HCC) 04/02/2023 10:09 AM EST Scheduled Procedures Name Priority Associated Diagnoses Date/Ti [...] the patient have Health Care Power of Wire Puller? Yes, not currently available Care Teams Ear Nose Throat Physician Relationship Specialty Start Date End Date Evelyn FRANZ, Kaz Canela MD 200 [place] [address] PCP - General 10/25/1995 documented as of this encounter
--- OUTSIDE RECORDS SUMMARY | 2023-05-26 18:09 | External Medical Summary | Summary of Care ---
Author Name Unknown Organization [facility] Address [address] [place] [address] Phone [phone] Care Team Providers Care Contract Lead Name Role Phone Evelyn FRANZ MD, Kaz Canela Primary Care Provider [phone] Reason for Visit * Reason Comments Outpatient Testing Encounter Details Date Type Department Care Team (Late st Contact Info) Description 04/23/2023 4:30 PM EST Laboratory Laboratory [facility] [address] [place] [phone] [place], Lab Scenery [address] [place] [address] Malignant neoplasm of prostate (HCC) Allergies Active Allergy Reactions Criticality Noted Date Comments Levofloxacin Muscle pain 02/07/2018 Oxycodone Nausea/vomiting 02/07/2018 documented as of this encounter (statuses as of 04/23/2023) Medications Medication Sig Dispensed Refills Start Date [...] as of this encounter (statuses as of 04/23/2023) Active Problems Problem Noted Date Diagnosed Date [...] as of this encounter (statuses as of 04/23/2023) Resolved Problems Problem Noted Date Diagnosed Date Resolved Date Supraclavicular lymphadenopathy 02/11/2016 01/02/2018 Screening for prostate cancer 04/15/2003 05/20/2008 Overview: Resolved per Screening Diagnosis Protocol #6 Acute cholecystitis 11/25/2002 05/07/19 19 Diaphragmatic hernia 019 documented as of this encounter (statuses as of 04/23/2023) Immunizations Name Administration Dates Next Due COVID-19 [...] Care Team (Late st Contact Info) Description 04/24/2023 9:30 AM EST Pharmacy Pharmacy Hematology Oncology [facility] [address] [place] [address] [facility], [facility] Hem/Onc [address] [place] [address] 05/03/2023 1:30 PM EST Office Visit Radiation Oncology, [facility] [address] [place] [address] Crescencio Obrien MD [address] [place] [address] 05/22/2023 4:30 PM EDT Laboratory Laboratory [place] [address] [place] [phone] [place] Scenery [address] [place] [address] 05/31/2023 9:40 AM EDT Office Visit Family Practice [place] [place] [address] [place] [address] Kaz Rivas III, MD [address] [place] [address] 06/22/2023 1:20 PM EDT Laboratory Laboratory [place] [address] [place] [phone] [place] [facility] Scenery [address] [place] [address] [address] 06/22/2023 2:30 PM EDT Telemedicine Hematology/Oncology, [address] [address] Stan Parra MD [address] [place] [address] Cart, Telemed [facility] Hem Onc Clinic [address] [place] [address] 06/22/2023 3:00 PM EDT Immunization/Injection Hematology/Oncology Treatment, [address] [place] [address] [facility], Chair10 Hem Onc [address] [place] [phone] Pending Results Name Type Priority Associated Diagnoses Date /Time COMPREHENSIVE METABOLIC PANEL Lab STAT Malignant neoplasm of prostate (HCC) 04/23/2023 4:23 PM EST Scheduled Procedures Name Priority Associated Diagnoses Date/Ti me COLONOSCOPY FLEXIBLE PROXIMA L DIAGNOSTIC Recall History of colonic polyps Health Maintenance Due Date Last Done Comments Depression Screening 01/04/2020 01/03/2019 DTaP,Tdap,and Td Vaccines (2 - Td or Tdap) 08/25/2020 08/25/2010 COVID-19 Vaccine ( season) 2022 04/06/2021, 05/21/2020, 04/23/2020 Influenza Vaccine (FLU shot) (#1) 2022 01/11/2022, 12/18/2019, 11/22/2018, Additional history exists GFR 04/02/2024 04/02/2023, 03/12, 02/10/2023, Additional history exists Albumin/Creatinine Ratio 10/05/2024 10/05/2021 [...] Date/Time Associated Diagnosis Comments DIFFERENTIAL, AUTOMATED STAT 04/23/2023 4:23 PM EST Malignant neoplasm of prostate (HCC) CBC STAT 04/23/2023 4:23 PM EST Malignant neoplasm of prostate (HCC) CBC STAT 04/23/2023 4:23 PM EST Malignant neoplasm of prostate (HCC) documented in this encounter Results * (ABNORMAL) DIFFERENTIAL, AUTOMATED (04/23/2023 4:23 PM EST) WBC 7.37 4.00 - 10.80 K/uL 04/23/2023 4:33 PM EST [facility] [place] [facility] Neutrophils % 80.8(H) 40.0 - 75.0 % 04/23/2023 4:33 PM EST [facility] [place] [facility] Lymphocytes % 11.5(L) 18.0 - 42.0 % 04/23/2023 4:33 PM EST [facility] [place] [facility] Monocytes % 7.3 1.0 - 11.0 % 04/23/2023 4:33 PM EST [facility] [place] [facility] Eosinophils % 0.1 0.0 - 6.0 % 04/23/2023 4:33 PM EST [facility] [place] [facility] Basophils % 0.3 0.0 - 2.0 % 04/23/2023 4:33 PM EST [facility] [place] [facility] Absolute Neutrophils 5.95 1.80 - 7.70 K/uL 04/23/2023 4:33 PM EST [facility] [place] 56 Absolute Lymphocytes 0.85(L) 1.00 - 4.80 K/ul 04/23/2023 4:33 PM EST [facility] 56 Absolute Monocytes 0.54 0.00 - 1.10 K/uL 04/23/2023 4:33 PM EST [facility] 56 Absolute Eosinophils 0.01 0.00 - 0.70 K/uL 04/23/2023 4:33 PM EST [facility] 56 Absolute Basophils 0.02 0.00 - 0.20 K/uL 04/23/2023 4:33 PM EST [facility] 56 Blood Venous blood specimen / Unknown Venipuncture / Unknown 04/23/2023 4:23 PM EST 04/23/2023 4:23 PM EST Stan Parra MD LAB BLOOD O RDERABLES [facility] [address] [place] [address] * (ABNORMAL) CBC (04/23/2023 4:23 PM EST) WBC 7.37 4.00 - 10.80 K/uL 04/23/2023 4:33 PM [facility] RBC 4.48 4.50 - 5.25 M/uL 04/23/2023 4:33 PM [facility] HGB 13.4(L) 14.0 - 16.8 g/dL 04/23/2023 4:33 PM EST [facility] HCT 40.2 40.0 - 48.4 % 04/23/2023 4:33 PM [facility] 56 MCV 89.7 82.0 - 99.5 fL 04/23/2023 4:33 PM [facility] 56 MCH 29.9 27.0 - 34.0 pg 04/23/2023 4:33 PM [facility] 56 MCHC 33.3 32.0 - 36.0 g/dL 04/23/2023 4:33 PM [facility] 56 RDW 13.3 11.5 - 15.5 % 04/23/2023 4:33 PM EST [facility] 56- PLT 192 140 - 400 K/uL 04/23/2023 4:33 PM EST [facility] 56-02 MPV 10.0 6.6 - 11.1 fL 04/23/2023 4:33 PM EST [facility] 56-02 Blood Venous blood specimen / Unknown Venipuncture / Unknown 04/23/2023 4:23 PM EST 04/23/2023 4:23 PM EST Stan Parra MD LAB BLOOD O RDERABLES [facility] 56- [address] [place] [address] documented in this encounter Visit Diagnoses Diagnosis [...] the patient have Health Care Power of Credit Representative? Yes, not currently available Care Teams Contract Lead Relationship Specialty Start Date End Date Kaz Rivas III, MD [facility] [address] PCP - General 10/25/1995 documented as of this encounter
--- OUTSIDE RECORDS SUMMARY | 2023-05-26 18:09 | External Medical Summary | Summary of Care ---
Author Name Unknown Organization [facility] Address [address] [place] [address] Phone [phone] Care Team Providers Care High Density Press Operator Name Role Phone Evelyn FRANZ MD, Kaz Canela Primary Care Provider [phone] Reason for Visit * Reason Comments Medication Management Encounter Details Date Type Department Care Team (Late st Contact Info) Description 04/24/2023 9:30 AM [facility] Pharmacy Pharmacy Hematology Oncology [facility] [address] [place] [address] [facility] Hem/Onc [address] [place] [address] Malignant neoplasm of prostate (HCC)* Allergies Active Allergy Reactions Criticality Noted Date Comments Levofloxacin Muscle pain 02/07/2018 Oxycodone Nausea/vomiting 02/07/2018 documented as of this encounter (statuses as of 04/24/2023) Medications Medication Sig Dispensed Refills Start Date [...] as of this encounter (statuses as of 04/24/2023) Active Problems Problem Noted Date Diagnosed Date [...] as of this encounter (statuses as of 04/24/2023) Resolved Problems Problem Noted Date Diagnosed Date Resolved Date Supraclavicular lymphadenopathy 02/11/2016 01/02/2018 Screening for prostate cancer 04/15/2003 05/20/2008 Overview: Resolved per Screening Diagnosis Protocol #6 Acute cholecystitis 11/25/2002 05/07/19 19 Diaphragmatic hernia 019 documented as of this encounter (statuses as of 04/24/2023) Immunizations Name Administration Dates Next Due COVID-19 [...] the money to buy more. Never true 07/24/20 22 Within the past 12 months, t [...] this encounter Progress Notes * Renetta Pagan, [facility] - 04/24/2023 1:15 PM EST MEDICATION THERAPY MANAGEMENT ABIRATERONE TREATMENT PROGRESS NOTE Piyush Aponte [id number] Patient Phone Numbers Preferred Lab: [place] [facility]: [facility] Communication: Spoke to: Patient Treatment: Medication: Abiraterone (Zytiga) Indication/Staging/Diagnosis Code: mCSPC / Stage IIIC / C61 Dose: 250mg daily ( 07/17/22) Administration: with food Start Date: 06/05/22 Primary Consumer Banker/Oncologist: Dr. Parra Additional Therapy: Prednisone 5mg daily Lupron Ondansetron Treatment History: 05/2018: bicalutamide 06/05/18-09/10/20; 05/2022-present: Lupron 08/19/18-10/14/18: RT Interval History: Per OV 07/17/22, pt advised to reduce abiraterone to 250mg daily with breakfast Per OV 03/23/23, pt received ondansetron and IV hydration in clinic for N/V/D States N/V/D resolved since OV States he has not checked BP since OV but denies s/s of HTN No concerns, tolerating therapy well Changes to medication list since last visit? No Assessment and Plan: Follow up labs stable Continue current therapy and monthly labs Assessment of compliance: compliant Assessment of adverse effects attributed to drug therapy: Edema/fluid retention - absent HTN - N/A Joint swelling or discomfort - absent Arthralgias/Myalgias - absent Diarrhea/Constipation - absent Dose adjustment needed based on lab or adverse drug reaction? No Follow up: 05/22 Renetta Pagan, PharmD, BCOP Clinical Pharmacist, [facility] Oral Chemotherapy [facility] 04/24/2023, 1:23 PM Monitoring Parameters: Estimated CrCl Creatinine clearance cannot be calculated (Unknown ideal weight.) Hepatitis panel Latest Reference Range & Units [...] Pertinent labs: Latest Reference Range & Units 03/21/23 16:35 04/02/23 10:09 04/23/23 16:23 Albumin 3.8 - 5.0 g/dL 4.3 4.1 4.0 AST 10 - 50 U/L 24 23 22 ALT 10 - 50 U/L 15 8 (L) 6 (L) Alkaline Phosphatase 35 - 130 U/L 79 85 96 Bilirubin, Total <=1.2 mg/dL 0.3 0.5 0.3 Time Spent on Encounter: 6 - 10 minutes Encounter Group: Oncology Encounter Interventions Item Category: Oral Chemotherapy Abiraterone Problem/Rationale: Safety: Needs additional monitoring - Medication Requires monitoring Pharmacist Intervention(s): Lab monitoring and Toxicity monitoring Magnitude of Intervention: Monitoring with direction (Level 1) documented in this encounter Plan of Treatment Upcoming Encounters Date Type Department Care Team (Late st Contact Info) Description 05/03/2023 1:30 PM EST Office Visit Radiation Oncology, [facility] [address] [place] [address] Crescencio Obrien MD [address] [place] [address] [place] [phone] 05/22/2023 4:30 PM EDT Laboratory Laboratory [place] [address] [place] [phone] [place] Lab Scenery [address] [place] [address] 05/23/2023 9:30 AM EDT Pharmacy Pharmacy Hematology Oncology [facility] [address] [place] [address] [facility] Hem/Onc [address] [place] [address] 05/31/2023 9:40 AM EDT Office [facility] [address] [place] [address] Kaz Rivas III, MD [address] [place] [address] 06/22/2023 1:20 PM EDT [facility] [address] [place] [phone] [place] Lab Scenery [address] [place] [address] 06/22/2023 2:30 PM EDT Telemedicine Hematology/Oncology, [address] [phone] Stan Parra MD [address] [place] [address] Cart, Telemed [facility] Hem Onc Clinic [address] [place] [address] 06/22/2023 3:00 PM EDT Immunization/Injection Hematology/Oncology Treatment, [address] [phone] [facility], Chair Hem Onc [address] [place] [address] [phone] Scheduled Procedures Name Priority Associated Diagnoses Date/Ti [...] the patient have Health Care Power of Roofing Tile Sorter? Yes, not currently available Care Teams High Density Press Operator Relationship Specialty Start Date End Date Kaz Rivas III, MD 200 [place] [address] PCP - General 10/25/1995 documented as of this encounter
--- OUTSIDE RECORDS SUMMARY | 2023-05-26 18:09 | External Medical Summary ---
Author Name Unknown Address Unknown Organization [id number]:[facility] [place] 56-02 [address] [place] [address] Laboratory Report Ordering Provider Test Date Status JESÚS BESS 04/02/2023 10:09:30 Final Observation Date Value Abnormality Reference (Units ) Status BUN 04/02/2023 10:09:30 14 6-20 (mg/dL) Final Creatinine 04/02/2023 10:09:30 0.9 0.6-1.2 (mg/dL) Final Glomerular filtration rate/1.73 sq M.predicted [Volume Rate/Area] in Serum, Plasma or Blood by Creatinine-based formula (CKD-EPI) 04/02/2023 10:09:30 88 >=60 (mL/min) Final eGFR is calculated based on the CKD-EPI 2020 equation SODIUM 04/02/2023 10:09:30 140 135-146 (m mol/L) Final Potassium 04/02/2023 10:09:30 3.6 3.5-5.1 (m mol/L) Final Cl 04/02/2023 10:09:30 103 98-107 (mm ol/L) Final CO2 04/02/2023 10:09:30 27 22-32 (mmo l/L) Final Anion gap 04/02/2023 10:09:30 10 7-15 (mmol /L) Final Glucose 04/02/2023 10:09:30 102 70-120 (mg /dL) Final Albumin 04/02/2023 10:09:30 4.1 3.8-5.0 (g /dL) Final AST (Aspartate aminotransferase) 04/02/2023 10:09:30 23 10-50 (U/L) Fin al Alk Phos 04/02/2023 10:09:30 85 35-130 (U/ L) Final Bilirubin, Total 04/02/2023 10:09:30 0.5 <=1 .2 (mg/dL) Final Calcium 04/02/2023 10:09:30 9.1 8.4-10.2 ( mg/dL) Final Protein 04/02/2023 10:09:30 7.0 6.0-8.3 (g /dL) Final ALT (Alanine aminotransferase) 04/02/2023 10:09:30 8 Below low normal 10-50 (U/L) Final Performing Location [facility] [place] 56- 02 - [address] [place] [address]
--- OUTSIDE RECORDS SUMMARY | 2023-05-26 18:09 | External Medical Summary ---
Author Name Unknown Address Unknown Organization K09:[facility] [place] [address] Laboratory Report Ordering Provider Test Date Status JESÚS BESS 04/23/2023 16:23:01 Final Observation Date Value Abnormality Reference (Units ) Status WBC, Total 04/23/2023 16:23:01 7.37 4.00-10.8 0 (K/uL) Final RBC 04/23/2023 16:23:01 4.48 4.50-5.25 (M/uL) Final Hemoglobin 04/23/2023 16:23:01 13.4 Below low normal 14 .0-16.8 (g/dL) Final HCT 04/23/2023 16:23:01 40.2 40.0-48.4 (%) Final MCV 04/23/2023 16:23:01 89.7 82.0-99.5 (fL) Final MCH 04/23/2023 16:23:01 29.9 27.0-34.0 (pg) Final MCHC 04/23/2023 16:23:01 33.3 32.0-36.0 (g/dL) Final RDW 04/23/2023 16:23:01 13.3 11.5-15.5 (%) Final Platelets 04/23/2023 16:23:01 192 140-400 (K /uL) Final MPV 04/23/2023 16:23:01 10.0 6.6-11.1 ( fL) Final Performing Location [facility] [place] [address]
--- OUTSIDE RECORDS SUMMARY | 2023-05-26 18:09 | External Medical Summary | Summary of Care ---
Author Name Unknown Organization [facility] Address [address] [place] [address] Phone [phone] Care Team Providers Care Design Lead Name Role Phone Evelyn FRANZ MD, Kaz Canela Primary Care Provider [phone] Reason for Visit * Reason Comments Follow Up Encounter Details Date Type Department Care Team (Late st Contact Info) Description 03/23/2023 9:30 AM EST Telemedicine Hematology/Oncology, [address] [id number] Stan Parra MD [address] [place] [address] [facility] [address] [place] [address] Malignant neoplasm of prostate (HCC)*; TANYA (acute kidney injury) (HCC); Nausea; Encounter to discuss test results; Encounter to discuss treatment options; Arthralgia, unspecified joint; Encounter for medication monitoring Allergies Active Allergy Reactions Criticality Noted Date Comments Levofloxacin Muscle pain 02/07/2018 Oxycodone Nausea/vomiting 02/07/2018 documented as of this encounter (statuses as of 04/05/2023) Medications Medication Sig Dispensed Refills Start Date [...] as of this encounter (statuses as of 04/05/2023) Active Problems Problem Noted Date Diagnosed Date [...] as of this encounter (statuses as of 04/05/2023) Resolved Problems Problem Noted Date Diagnosed Date Resolved Date Supraclavicular lymphadenopathy 02/11/2016 01/02/2018 Screening for prostate cancer 04/15/2003 05/20/2008 Overview: Resolved per Screening Diagnosis Protocol #6 Acute cholecystitis 11/25/2002 05/07/19 19 Diaphragmatic hernia 019 documented as of this encounter (statuses as of 04/05/2023) Immunizations Name Administration Dates Next Due COVID-19 [...] Sign Reading Time Taken Comments Blood Pressure 161/89 03/23/2023 9:35 AM EST Pulse 75 03/23/2023 9:35 AM EST Temperature 36.3 C (97.3 F) 03/23/2023 9:35 AM ES T Respiratory Rate - - Oxygen Saturation 97% 03/23/2023 9:35 AM EST Inhaled Oxygen Concentration - - Weight 96.5 kg (212 lb 12.8 oz) 03/23/2023 9:35 AM EST Height - - Body Mass Index 28.86 03/18/2022 3:25 PM EST documented in this encounter Progress Notes * Stan Parra MD - 03/23/2023 9:35 AM EST Images from the original note were not included. TeleVIDEO Visit Patient location: CLINIC. I was in a different facility from the patient. After connecting through televideo, patient was verified with two unique identifiers. Patient (or authorized legal account services representative) was then informed that this was a Telemedicine visit and being conducted confidentially over secure lines. My office door was closed. No one else was in the room with me. Patient acknowledged consent and understanding of privacy and security of the Telemedicine visit, and gave permission to have a telemedicine presenter stay in the room in order to assist with the history and to conduct the exam as needed. I informed the patient that I have reviewed their record in [facility] and presented the opportunity for them to ask any questions regarding the visit today. The patient agreed to participate. Patient's Name: Piyush Aponte MR #: [id number] : 1950 Today's date: 03/23/2023 PCP: Kaz Rivas III, MD Referring provider: Bradley Uriarte Jr., MD Reason for referral: Prostate cancer (HCC) Hematology/Oncology diagnosis: Prostate AWILDA, with some cores showing intraductal histology, Very high risk group, Stage IIIC, [id number], Grade group 5: Stowell score 4+5=9, Cores W/ Carcinoma(02/23), PSA = 20.83 (04/30/2018). Biochemical recurrence (12/2021) (PSA: 0.24--> 0.38--> 1.7-->2.03-->2.32--> 2.32-->3.14) mCSPC with oligo metastatic disease; Aortocaval LN + T6 (Apr 2022) Other comorbidities: HTN GERD HLP Treatment rendered (from old records): Casodex, started 05/29/2018. Lupron (x 27 months) started 06/05/2018, switched to Eligard, final dose of Eligard, 3mo dose, given 09/10/2020. Definitive radiation therapy: The total radiation dose was 8000 cGy in 40 fractions total dose. (4600 cGy in 23 fractions to the pelvic lymph nodes. This was followed by further cone down after no other 1800 cGy or 6400 cGy in 32 fractions. Final total dose to PTV 3/reduced volume carry to 8000 cGyin 40 fractions). All treatments given in 200 cGy per fraction- Dr. Obrien (08/19/2018 - 10/14/2018)---> LIBAN PSA was 0.24 SBRT to T6 vertebra- 2400 cGy in 3 F- Dr. Obrien (06/15/2022- 06/21/2022) SBRT to Aortocaval LN - 2500 cGy in 5 F- Dr. Obrien (06/15/2022- 06/26/2022) Current treatment: ADT + Abiraterone + Prednisone (May 2022- ) Eligard 22.5 mg Q 3 m (06/16/2022- ) ABIRATERONE + PREDNISONE (06/05/22- )---> Zytiga lowered to 250 mg daily with low fat breakfast on 07/17/2022 because of poor tolerance. Chief Complaint Patient presents with Follow Up ECOG: Performance Status 1 = 80-90% Symptoms but nearly ambulatory Interval history: Patient presented today with his for follow-up, and receive his Eligard shot. Overall, he has been tolerating Zytiga with low-dose of 250 mg q.day with low- fat breakfast. He still complaining of mild intermittent muscle , and joint pain, but not affecting his quality oflife. He reports that he has been having nausea for the last few days. He ate in a restaurant last week, and then after that he developed diarrhea, and nausea. His diarrhea resolved but he still have nausea. He has low oral intake for the last few days. His creatinine is elevated today to 1.3 from baseline of 0.9. History of present illness (at time of my initial evaluation on 02/20/2022 ): Piyush Aponte is a 71 year old male who presented to my office accompanied by his to establish care with oncologist for his prostatic adenocarcinoma. Patient lives [place] away from [facility]. Patient recently fell from a tree, and had compression fracture. He is currently on a brace, and neck collar. In 2018, patient complained of difficulty urination, and weak urinary stream. His PSA on March 07, 2018 was 20.83. 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 He started Casodex followed by long-term Lupron for total of 27 months. He also received definitive radiation therapy in [address] Obrien. Last Lupron received on September 10, 2020. Liban PSA was 0.24 on September 07, 2020. Patient noted to have biochemical recurrence with rising PSA 0.24--> 0.38--> 1.7--> 2.03---> 2.32. He had PET-CTon January 19, 2022 which showed FDG avid distal aortocaval lymph node, stable from recent CT but new since CT dated 05/15/2018, favoring a neoplastic process given the patient's history of prostatecancer. Overall, patient is asymptomatic (except mild testicular pain), and he was referred to us by urology team for further evaluation, recommendation regarding current PET scan findings, and rising PSA. Review of Systems: Negative except as mentioned above Past Medical History: Diagnosis Date Deviated septum Diaphragmatic hernia Dyslipidemia GERD (gastroesophageal reflux disease) HTN (hypertension) Hypertension Metastatic cancer (HCC) Prostate cancer (HCC) Reflux esophagitis Past Surgical History: Procedure Laterality Date ARTHROPLASTY KNEE TOTAL Right 04/29/2021 Dr. Gonsales performed surgery COLONOSCOPY, DIAGNOSTIC (RECTUM) 06/11/2003 COLONOSCOPY, DIAGNOSTIC (RECTUM) 03/17/2011 diverticulosis repeat in 5 years COLONOSCOPY, DIAGNOSTIC (RECTUM) 03/09/2016 inflammation in sm bowel, diverticulosis, repeat 5 yrs/COLONOSCOPY FLEXIBLE PROXIMAL DIAGNOSTIC performed by Umair Cook MD at [facility] COLONOSCOPY, DIAGNOSTIC (RECTUM) 08/17/2021 benign polyp, diverticulosis, repeat 5 yrs / COLONOSCOPY FLEXIBLE PROXIMAL DIAGNOSTIC performed by Chavez Abbasi MD at [facility] COLONOSCOPY, GI REFERRAL OP 03/02/2006 hyperplastic polyps--repeat 5 years COLORECTAL CANCER SCREEN;W/FLE 06/05/2001 70 cms wnl DENTAL SURGERY PROCEDURE NEC Dental Surgery Procedure EGD, FLEXIBLE, DIAGNOSTIC 12/22/2011 UPPER GI ENDOSCOPY DIAGNOSTIC performed by Berkley Rosen DO at [facility] [place] bile reflux and inlet patch INFORMATION 1982 Herniated disc repair KNEE ARTHROSCOPY/MENISCUS REPAIR Left 2014 KNEE ARTHROSCOPY/SURGERY Left 09/23/2020 shave menniscus chondroplasty REMOVE GALLBLADDER 11/17/2002 Cholecystectomy - open [facility] Dr. Gold REMOVE LUMBAR SPINE LAMINA, 3+ SEGS 1981 Lumbar Disk Excision REMOVE TONSILS & ADENOIDS, UNDER 12 Tonsillectomy/Adenoids,<12 Y/O SHOULDER ARTHROSCOPY/DEBRIDEMENT Left 2017 STRESS TREADMILL 2000 wnl TRANSPERINEAL BX OF PROSTATE, STEREOTACTIC N/A 04/30/2018 TRANSPERINEAL BX OF PROSTATE, STEREOTACTIC performed by Vy Tyler MD at [facility] UPPER ENDOSCOPY GI REFERRAL OP 03/02/2006 acid reflux--no Rodas's esophagus or H.Pylori Social History Tobacco Use Smoking status: Never Passive exposure: Never Smokeless tobacco: Never Vaping Use Vaping Use: Never used Substance Use Topics Alcohol use: No Drug use: No Family History Problem Relation Age of Onset Diabetes Mother @86 Other (Diverticulitis) Mother colectomy Heart Disorder Father CHF @83 Glaucoma Father Prostate cancer Father 78 No Past Hx Sister Diabetes Grandfather (Maternal) @78 Cancer Uncle (Paternal) metastatic, unknown type Breast Cancer Cousin (Maternal) >50y No Known Problems Son No Known Problems Son No Known Problems Daughter Current Outpatient Medications Medication Sig Dispense Refill Multiple Vitamins-Minerals (CENTRUM SILVER 50+MEN) TABS Take by mouth. Acetaminophen ER 650 MG Oral Tablet Extended Release Take 1 Tablet by mouth every 8 hours as neededfor Pain, Severe. 30 Tablet 0 Rosuvastatin Calcium 5 MG Oral Tablet (Crestor) Take by mouth 1 Tablet in the morning. (Patient nottaking: Reported on 11/06/2022) 90 Tablet 11 traMADol HCl 50 MG Oral Tablet (Ultram) Take 1 Tablet (50 mg) by mouth every 8 hours as needed for Pain, Severe. (Patient not taking: Reported on 06/16/2022) 20 Tablet 0 Methocarbamol 500 MG Oral Tablet (Robamol) Take 1 Tablet by mouth 2 times a day as needed for Muscle spasms. (Patient not taking: Reported on 06/16/2022) Apixaban 5 MG Oral Tablet (Eliquis) one tablet by mouth twice daily 180 Tablet 3 Naproxen 500 MG Oral Tablet (Naprosyn) Take 1 Tablet by mouth 2 times a day with morning and evening meals. With food (Patient not taking: Reported on 12/12/2022) 14 Tablet 1 Ondansetron HCl 8 MG Oral Tablet Take 1 Tablet by mouth every 8 hours as needed for Nausea. (Patient not taking: Reported on 08/22/2022) 50 Tablet 0 Tamsulosin HCl 0.4 MG Oral Capsule (Flomax) Take 1 Capsule by mouth in the morning. 90 Capsule 3 Sucralfate 1 GM Oral Tablet (Carafate) TAKE 1 TABLET 1 HOUR BEFOREMEALS AND AT BEDTIME, DISSOLVE INWATER 120 Tablet 5 Eligard 22.5 MG Subcutaneous Kit (Leuprolide Acetate (3 Month)) Inject 22.5 mg under the skin every3 months for 4 doses. 4 Kit 0 Omeprazole 40 MG Oral Capsule Delayed Release (PriLOSEC) TAKE 1 CAPSULE DAILY 1 HOURBEFORE THE FIRST MEAL OF THE DAY 90 Capsule 2 predniSONE 5 MG Oral Tablet (Deltasone) Take 1 tablet by mouth in the morning. 30 Tablet 5 Calcium 600+D Plus Minerals 600-400 MG-UNIT Oral Tablet Chewable Take 2 Tablets by mouth in the morning. 60 Tablet 2 Abiraterone Acetate 250 MG Oral Tablet (Zytiga) Take 1 tablet by mouth in the morning. Take with food. 30 Tablet 5 No current facility-administered medications for this visit. Review of patient's allergies indicates: Allergen Reactions Levaquin [Levofloxacin] Muscle pain Oxycodone Nausea/vomiting Physical exam: Vitals 03/02/2023 03/14/2023 14:29 03/15/2023 03/16/2023 03/21/2023 03/22/2023 08:22 Notes Notes Progress Notes Signed Vida Kelly CPhT Progress Notes Addendum Jordan Andrade OSA Progress Notes Signed Ricardo Gordon [facility] Progress Notes Signed Vida Kelly CPhT Telephone Encounter Signed Indy Sanchez OSA Telephone Encounter Signed Jaqueline Rocha LPN Details More values are hidden. Newest values shown. Go to activity for more data. General: alert, healthy and no distress Head: Normocephalic, No masses, lesions, tenderness or abnormalities Rest of examination can not be performed because of video visit Labs: Results for orders placed or performed in visit on 03/21/23 COMPREHENSIVE METABOLIC PANEL Result Value Ref Range BUN 18 6 - 20 mg/dL Creatinine 1.3 (H) 0.6 - 1.2 mg/dL Estimated Glomerular Filtration Rate 61 >=60 mL/min Sodium 142 135 - 146 mmol/L Potassium 4.2 3.5 - 5.1 mmol/L Chloride 107 98 - 107 mmol/L CO2 25 22 - 32 mmol/L Anion Gap 10 7 - 15 mmol/L Glucose 94 70 - 120 mg/dL Albumin 4.3 3.8 - 5.0 g/dL AST 24 10 - 50 U/L Alkaline Phosphatase 79 35 - 130 U/L Bilirubin, Total 0.3 <=1.2 mg/dL Calcium 9.2 8.4 - 10.2 mg/dL Protein 6.7 6.0 - 8.3 g/dL ALT 15 10 - 50 U/L PSA Result Value Ref Range PSA 0.03 <4.10 ng/mL Imaging: CT ABD/PELVIS W IV AND W ORAL CONTRAST Result Date: 10/24/2022 IMPRESSION Nonspecific 2.1 centimeter hypodensity in the spleen, previously 1.9 centimeters. Previous 14 millimeter inter aortocaval lymph node now measures 6 millimeters. Pathology Review: Impression: Piyush Aponte is a 71 year old male with Prostate adenocarcinoma, with some cores showing intraductal histology, Very high risk group, StageIIIC, [id number], Grade group 5: Stowell score 4+5=9, Cores W/ Carcinoma(02/23), PSA = 20.83 \\diagnosed on 04/30/2018. S/P Casodex started 05/29/2018, and LT-ADT with Lupron (x 27 months) started 06/05/2018, switched to Eligard, final dose of Eligard, 3mo dose, given 09/10/2020. He received Definitive radiation therapy: The total radiation dose was 8000 cGy in 40 fractions total dose. (4600 cGy in 23 fractions to the pelvic lymph nodes. This was followed by further cone down after no other 1800 cGy or 6400 cGy in 32 fractions. Final total dose to PTV 3/reduced volume carry to 8000 cGy in 40 fractions). All treatments given in 200 cGy per fraction- Dr. Obrien (08/19/2018 - 10/14/2018). LIBAN PSA was 0.24 on 09/07/20. Patient has evidence of biochemical recurrence (PSA increase by 2 ng/mL or more above the liban PSAafter EBRT), and abnormal PET scan findings with questionable aortocaval lymph node metastasis, andrecent PSMA PET CT on 04/13/2022 showing evidence of oligo metastatic disease with mildly enlarged from prior, intensely PYLARIFY avid, distal aortocaval lymph node with additional current finding of subtle sclerotic focus at the left posterolateral margin of T6 with intense PYLARIFY activity. Testosterone level is 331. Case discussed in oncology tumor board, and recommendation to proceed with systemic treatment for mCSPC. S/P SBRT to T6 vertebra- 2400 cGy in 3 F- Dr. Obrien (06/15/2022- 06/21/2022), and SBRT to Aortocaval LN - 2500 cGy in 5 F- Dr. Obrien (06/15/2022- 06/26/2022) Prerenal acute kidney injury secondary to low oral intake from nausea, and GI loss from diarrhea Nausea, with no vomiting Diarrhea Dehydration Plan: Prerenal acute kidney injury secondary to low oral intake from nausea, and GI loss from diarrhea (seems to be related to recent food intake). Will give IV fluids today in the clinic as well as Zofran. Also send him a prescription of Zofran as needed. I was planning to bring him again next week for IV fluids and blood work, but patient reports that he is traveling tomorrow to [place] and will stay there for 7 to 10 days and he will not be able to reschedule his travel. I instructed himto be very well-hydrated during his travel, takes Zofran as needed, and if he continued to have nausea, and oral intake, or if he develops diarrhea, to go to the emergency room in [place]. Patient understood and will follow. Will repeat CMP in 10 days (after he comes back from [place]). Package insert of Zytiga, and Eligard reviewed, no need for dose adjustment for kidney function. Better tolerance to Zytiga 250 mg q daily with a low fat breakfast. Will continue same dose for now, following with MTM. PSA is responding well, and continue to trend down nicely. Continue Eligard shot q.3 months. He is due today. Genetic evaluation; No pathogenic variants identified in the 88 genes analyzed associated with hereditary cancer including hereditary prostate cancer. I appreciate MTM input. At this point, patient seems to be responding well to the current treatment (both clinically, and laboratory). His PSA continue to trend down, and no signs or symptoms of disease progression. No needfor PSMA PET-CT at this point. RESPONSE ASSESSMENT DURING TREATMENT: For males with CSPC who are undergoing systemic therapy, periodic assessment should be geared toward identifying signs and symptoms of disease progression. Serial evaluation of serum prostate-specific antigen (PSA) is the mainstay of testing. Consensus-based guidelines from the National Comprehensive Cancer Network recommend testing PSA every three to six months during treatment for advanced prostate cancer. Most clinicians make decisions about the need for radiographic evaluation based on changes in PSA values and/or the development of new symptoms. Therapeutic changes are usually not made based on a rising PSA alone. Patient's has many questions about continuing Eligard, and Zytiga. All answered to the level her satisfaction. Also, patient is considering knee replacement, and he was told that he can not go for surgery well on Zytiga. I clearly informed the patient that Zytiga should not be a barrier for any elective surgery. We can hold his Zytiga few weeks before surgery, and few weeks after surgery, then he can resumeit with no issues. I offered to talk to his orthopedic surgeon if needed. Patient, and had questions, All questions were answered to the patient's satisfaction Plan Ondansetron HCl 8 MG Oral Tablet New Supportive Care Plan Treatment Ordered By: Hem/Onc --- Protocol: SCP - HYDRATION [id number] Check-out note: OK for Eilgard Shot today, and q.3 months IV fluids with Zofran today CMP in 10 days CBC with diff, CMP Q monthly Return to clinic with Fidel in 3 months with CBC with diff, CMP, PSA This chart was completed in part utilizing [employer] Speech Voice Recognition Software. Grammatical errors, random word insertions, pronoun errors, and incomplete sentences are an occasional consequence of this system due to software limitations, ambient noise, and hardware issues. Any formal questions or concerns about the content, text, or information contained within the body of this dictation should be directly addressed to the provider for clarification. I spent a total time of 80 minutes on the date of service in preparation, delivery, and documentation of the care provided, excluding any time spent in the performance of separately billed services. documented in this encounter Nursing Notes * Roberto Bauman, SHARI ASSIST - 03/23/2023 9:43 AM EST Patient identified by name and date of . Do you have any concerns about pain management for today's visit? No Living Will or Advance Directive for Health Care as noted on problem list. My [facility] is a way you can talk to your provider online through e-mail. Would you like to sign up? I can activate it for you? ALREADY ACTIVE BP 161/89 (BP Site: Right Arm, BP Position: Sitting, BP Cuff Size: Regular) | Pulse 75 | Temp 36.3 C (97.3 F) (Tympanic) | Wt 96.5 kg (212 lb 12.8 oz) | SpO2 97% | BMI 28.86 kg/m | BSA 2.21 m Patient was instructed to not get up on the exam table/exam chair until directed and assisted by their provider; patient is to remain seated in the chair/ wheelchair/ exam table/ exam chair for fall prevention and safety reasons. Patient is aware to have assistance to step down off exam table/exam chair with personnel. Patient voiced full comprehension of instructions. Patient states that he has had nausea, stomach pain, and diarrhea the last couple days. Not sure why. No fever. documented in this encounter Miscellaneous Notes * Addendum Note - Jaqueline Rocha LPN - 04/05/2023 10:10 AM ESTAddended by: JAQUELINE ROCHA on: 04/05/2023 10:10 AM Modules accepted: Orders documented in this encounter Plan of Treatment Upcoming Encounters Date Type Department Care Team (Late st Contact Info) Description 04/16/2023 9:30 AM EST Pharmacy Pharmacy Hematology Oncology [facility] [address] [place] [address] [facility], [facility] Hem/Onc [address] [place] [address] 04/23/2023 4:30 PM EST Laboratory Laboratory [place] [address] [facility] [place] [id number] Zoila Shen [facility] [address] [facility] [place] [address] 05/03/2023 1:30 PM EST Office Visit Radiation Oncology, [facility] [address] [place] [address] Crescencio Obrien MD [address] [place] [id number] 05/22/2023 4:30 PM EDT Laboratory Laboratory [facility] [address] [place], [place] [id number] [place], [address] [place] [address] 05/31/2023 9:40 AM EDT Office Visit Family [facility] [place] Hermelinda [place] [address] [place] [address] Evelyn IIIKaz MD [address] [place] [address] 06/20/2023 4:30 PM EDT Laboratory Laboratory [facility] [place] [address] [place] [id number] [facility] [address] [facility] [place] [address] 06/22/2023 2:30 PM EDT Telemedicine Hematology/Oncology, [address] [address] Stan Parra MD [address] [place], [place] [id number] Cart, Telemed [facility] [address] [place] [address] 06/22/2023 3:00 PM EDT Immunization/Injection Hematology/Oncology Treatment, [address] [address] [facility], [address] Hem Onc [address] [place] [address] Scheduled Orders Name Type Priority Associated Diagnoses Orde r Schedule PSA Lab STAT Malignant neoplasm of prostate (HCC) Expected: 06/20/2023 (Approximate), Expires: 04/05/2024 Scheduled Procedures Name Priority Associated Diagnoses Date/Ti [...] prostate (HCC)- Primary Malignant neoplasm of prostate TANYA (acute kidney injury) (HCC) Acute kidney failure, unspecified Nausea Nausea alone Encounter to discuss test results Other specified counseling Encounter to discuss treatment options Other specified counseling Arthralgia, unspecified joint Encounter for medication monitoring Encounter for therapeutic drug monitoring documented in this encounter Advance Directives Latest [...] the patient have Health Care Power of Acid Strength Inspector? Yes, not currently available Care Teams Design Lead Relationship Specialty Start Date End Date Kaz Rivas III, MD [address] [facility] [place] [address] PCP - General 10/25/1995 documented as of this encounter"
--- OUTSIDE RECORDS SUMMARY | 2023-05-26 18:09 | External Medical Summary | Summary of Care ---
Author Name Unknown Organization [facility] Address [address] [place] [address] Phone [phone] Care Team Providers Care Cigar Packer And Grader Name Role Phone Evelyn FRANZ MD, Kaz Canela Primary Care Provider [phone] Reason for Visit * Reason Onset Date Comments Appointment 04/13/2023 [facility] Encounter Details Date Type Department Care Team (Late st Contact Info) Description 04/13/2023 Telephone Hematology/Oncology, [address] [phone] Stan Parra MD [address] [place] [address] Appointment ([facility]) Allergies Active Allergy Reactions Criticality Noted Date Comments Levofloxacin Muscle pain 02/07/2018 Oxycodone Nausea/vomiting 02/07/2018 documented as of this encounter (statuses as of 04/13/2023) Medications Medication Sig Dispensed Refills Start Date [...] as of this encounter (statuses as of 04/13/2023) Active Problems Problem Noted Date Diagnosed Date [...] as of this encounter (statuses as of 04/13/2023) Resolved Problems Problem Noted Date Diagnosed Date Resolved Date Supraclavicular lymphadenopathy 02/11/2016 01/02/2018 Screening for prostate cancer 04/15/2003 05/20/2008 Overview: Resolved per Screening Diagnosis Protocol #6 Acute cholecystitis 11/25/2002 05/07/19 19 Diaphragmatic hernia 019 documented as of this encounter (statuses as of 04/13/2023) Immunizations Name Administration Dates Next Due COVID-19 [...] encounter Miscellaneous Notes * Telephone Encounter - Zenia Jenkins RN - 04/13/2023 12:21 PM EST Appointment adjusted and MyG sent to patient * Telephone Encounter - Petra Santana OSA - 04/13/2023 9:35 AM EST Pt called requesting to move [phone] lab appt to 0412.24 at Hem/Onc [facility] prior to other appts. Please reach out to advise. Thank You! documented in this encounter Plan of Treatment Upcoming Encounters Date Type Department Care Team (Late st Contact Info) Description 04/23/2023 4:30 PM EST Laboratory Laboratory [facility] Hermelinda [place] [address] [place] [phone] Zoila Shen Scen[address] [place] [address] 04/24/2023 9:30 AM EST Pharmacy Pharmacy Hematology Oncology [facility] [address] [place] [address] [facility], [facility] Hem/Onc [address] [place] [address] 05/03/2023 1:30 PM EST Office Visit Radiation Oncology, [place] [address] [place] [address] Crescencio Obrien MD [address] [place] [phone] 05/22/2023 4:30 PM EDT Laboratory Laboratory [facility] [address] [place] [phone] [place], Lab Scenery [address] [place] [address] 05/31/2023 9:40 AM EDT Office Visit Family Practice [facility] [place] [address] [place] [address] Kaz Rivas III, MD [address] [place] [address] 06/22/2023 1:20 PM EDT Laboratory Laboratory [facility] [place] [address] [place] [phone] [place], Lab Scenery [address] [facility], [place] [address] 06/22/2023 2:30 PM EDT Telemedicine Hematology/Oncology, [address] [phone] Stan Parra MD [address] [place], [place] [phone] Cart, Telemed [facility] Hem Onc Clinic [address] [place] [address] 06/22/2023 3:00 PM EDT Immunization/Injection Hematology/Oncology Treatment, [address] [phone] [facility], Chair10 Hem Onc [address] [place] [address] [phone] Scheduled Procedures Name Priority Associated Diagnoses Date/Ti [...] the patient have Health Care Power of Jewelry Polisher? Yes, not currently available Care Teams Cigar Packer And Grader Relationship Specialty Start Date End Date Kaz Rivas III, MD 200 [facility] [place] [address] PCP - General 10/25/1995 documented as of this encounter
--- OUTSIDE RECORDS SUMMARY | 2023-05-26 18:09 | External Medical Summary | Summary of Care ---
Author Name Unknown Organization [facility] Address [address] [place] [address] Phone [phone] Care Team Providers Care Crm Coordinator Name Role Phone Evelyn FRANZ MD, Kaz Canela Primary Care Provider [phone] Reason for Visit * Reason Onset Date Comments Med Request 05/02/2023 Encounter Details Date Type Department Care Team (Late st Contact Info) Description 05/02/2023 Telephone Family Practice [facility] [place] [address] [facility] [place] [address] Kaz Rivas III, MD 200 [place] [address] Med Request Allergies Active Allergy Reactions Criticality Noted Date Comments Levofloxacin Muscle pain 02/07/2018 Oxycodone Nausea/vomiting 02/07/2018 documented as of this encounter (statuses as of 05/02/2023) Medications Medication Sig Dispensed Refills Start Date [...] as of this encounter (statuses as of 05/02/2023) Active Problems Problem Noted Date Diagnosed Date [...] as of this encounter (statuses as of 05/02/2023) Resolved Problems Problem Noted Date Diagnosed Date Resolved Date Supraclavicular lymphadenopathy 02/11/2016 01/02/2018 Screening for prostate cancer 04/15/2003 05/20/2008 Overview: Resolved per Screening Diagnosis Protocol #6 Acute cholecystitis 11/25/2002 05/07/19 19 Diaphragmatic hernia 019 documented as of this encounter (statuses as of 05/02/2023) Immunizations Name Administration Dates Next Due COVID-19 [...] encounter Miscellaneous Notes * Telephone Encounter - Verna Carlson PHARM Tech - 05/02/2023 9:05 AM EST Pt called requesting refill from urology. Transferred pt to specialty line. ThanksVerna Batch And Furnace Operator [facility] 05/02/2023,9:05 AM documented in this encounter Plan of Treatment Upcoming Encounters Date Type Department Care Team (Late st Contact Info) Description 05/03/2023 1:30 PM EST Office Visit Radiation Oncology, [facility] [address] [place] [address] Crescencio Obrien MD [address] [place] [address] 05/22/2023 4:30 PM EDT Laboratory Laboratory [facility] Hermelinda [place] [address] [place] [phone] Hermelinda Lab [facility] [address] [place] [address] 05/23/2023 9:30 AM EDT Pharmacy Pharmacy Hematology Oncology [facility] [place] [address] [place] [address] [facility], [facility] Hem/Onc [address] [place] [facility] [place] [address] 05/31/2023 9:40 AM EDT Office Visit Family Practice [place] [address] [place] [address] Kaz Rivas III, MD [address] [place] [address] 06/22/2023 1:20 PM EDT Laboratory Laboratory [place] [address] [place], [place] [phone] [place], Lab Scenery [address] [place], [place] [address] 06/22/2023 2:30 PM EDT Telemedicine Hematology/Oncology, [address] [address] Stan Parra MD [address] [place] [address] Cart, Telemed [facility] Hem Onc Clinic [address] [place] [address] 06/22/2023 3:00 PM EDT Immunization/Injection Hematology/Oncology Treatment, [address] [address] [facility], Chair10 Hem Onc [address] [place] [address] Scheduled Procedures Name Priority Associated Diagnoses Date/Ti [...] the patient have Health Care Power of Vmware Administrator? Yes, not currently available Care Teams Crm Coordinator Relationship Specialty Start Date End Date Kaz Rivas III, MD [address] [place] [address] PCP - General 10/25/1995 documented as of this encounter
--- OUTSIDE RECORDS SUMMARY | 2023-05-26 18:09 | External Medical Summary | Summary of Care ---
Author Name Unknown Organization [facility] Address [address] [place] [address] Phone [phone] Care Team Providers Care Factory Expert Name Role Phone Evelyn FRANZ MD, Kaz Canela Primary Care Provider [phone] Reason for Visit * Reason Comments Treatment Eligard, IVF Encounter Details Date Type Department Care Team (Late st Contact Info) Description 03/23/2023 10:00 AM EST Immunization/I njection Hematology/Oncology Treatment, [address] [address] [facility], Chair5 Hem Onc [address] [place] [address] [phone] Malignant neoplasm of prostate (HCC)*; Nausea; TANYA (acute kidney injury) (HCC) Allergies Active Allergy Reactions Criticality Noted Date Comments Levofloxacin Muscle pain 02/07/2018 Oxycodone Nausea/vomiting 02/07/2018 documented as of this encounter (statuses as of 03/26/2023) Medications Medication Sig Dispensed Refills Start Date [...] with food. 30 Tablet 5 12/12/2022 Active documented as of this encounter (statuses as of 03/26/2023) Active Problems Problem Noted Date Diagnosed Date [...] as of this encounter (statuses as of 03/26/2023) Resolved Problems Problem Noted Date Diagnosed Date Resolved Date Supraclavicular lymphadenopathy 02/11/2016 01/02/2018 Screening for prostate cancer 04/15/2003 05/20/2008 Overview: Resolved per Screening Diagnosis Protocol #6 Acute cholecystitis 11/25/2002 05/07/19 19 Diaphragmatic hernia 019 documented as of this encounter (statuses as of 03/26/2023) Immunizations Name Administration Dates Next Due COVID-19 [...] Time Taken Comments Blood Pressure 161/89 03/23/2023 10:25 AM EST Pulse 75 03/23/2023 10:25 AM EST Temperature 36.3 C (97.3 F) 03/23/2023 10:[address] Respiratory Rate 18 03/23/2023 10:25 AM EST Oxygen Saturation - - Inhaled Oxygen Concentration - - Weight - - Height - - Body Mass Index - - documented in this encounter Nursing Notes * Tamiko Gonzalez LPN - 03/23/2023 10:25 AM EST Pt in chair 5. Here for Eligard injection and IV fluids. documented in this encounter Plan of Treatment Upcoming Encounters Date Type Department Care Team (Late st Contact Info) Description 04/02/2023 4:30 PM EST Laboratory Laboratory [facility] Hermelinda [place] [address] [place] [phone] Zoila [place] [address] [place] [address] 04/16/2023 9:30 AM EST Pharmacy Pharmacy Hematology Oncology [place] [address] [place] [address] [facility], [facility] Hem/Onc [facility] [place] [address] 04/23/2023 4:30 PM EST Laboratory Laboratory [facility] [place] [address] [place] [phone] Hermelinda Lab Scenery [address] [place] [address] 05/03/2023 1:30 PM EST Office Visit Radiation Oncology, [facility] [address] [place] [address] Crescencio Obrien MD [address] [place] [address] 05/22/2023 4:30 PM EDT Laboratory Laboratory [facility] [place] [address] [place] [address] [place] Lab Scenery [address] [place] [address] 05/31/2023 9:40 AM EDT Office Visit [facility] Hermelinda [place] [address] [place] [address] Kaz Rivas III, MD [address] [place] [address] 06/20/2023 4:30 PM EDT Laboratory Laboratory [facility] Hermelinda [place] [address] [place] [address] [place] Lab Scenery [address] [place], [place] [address] 06/22/2023 2:30 PM EDT Telemedicine Hematology/Oncology, [address] [address] Stan Parra MD [address] [place] [address] Cart, Telemed [facility] Hem Onc Clinic [address] [place] [address] 06/22/2023 3:00 PM EDT Immunization/Injection Hematology/Oncology Treatment, [address] [address] [facility], Chair10 Hem Onc [address] [place], [place] [address], [place] [address] Scheduled Procedures Name Priority Associated Diagnoses Date/Ti me COLONOSCOPY FLEXIBLE PROXIMA L DIAGNOSTIC Recall History of colonic polyps Health Maintenance Due Date Last Done Comments Depression Screening 01/04/2020 01/03/2019 DTaP,Tdap,and Td Vaccines (2 - Td or Tdap) 08/25/2020 08/25/2010 COVID-19 Vaccine (4 - season) 2022 04/06/2021, 05/21/2020, 04/23/2020 Influenza Vaccine (FLU shot) (#1) 2022 01/11/2022, 12/18/2019, 11/22/2018, Additional history exists GFR 03/21/2024 03/21/2023, 04/2022, 01/11/2023, Additional history exists Albumin/Creatinine Ratio 10/05/2024 [...] kidney failure, unspecified documented in this encounter Advance Directives Latest [...] the patient have Health Care Power of Research Assistant Member? Yes, not currently available Care Teams Factory Expert Relationship Specialty Start Date End Date Kaz Rivas III, MD [address] [place] [address] PCP - General 10/25/1995 documented as of this encounter
--- OUTSIDE RECORDS SUMMARY | 2023-05-26 18:09 | External Medical Summary | Summary of Care ---
Author Name Unknown Organization [facility] Address [address] [place] [address] Phone [phone] Care Team Providers Care Resistor Testing Machine Operator Name Role Phone Evelyn FRANZ MD, Kaz Canela Primary Care Provider [phone] Reason for Visit * Reason Comments Treatment Eligard and IVF * Episode Based Medications (Routine) - Authorized Specialty Diagnoses / Procedures Referred By Aj t Referred To Contact Diagnoses Malignant neoplasm of prostate (HCC) Procedures [place] LEUPROLIDE ACETATE SUSPNSION Stan Parra MD [address] [place] [address] [facility] Hem/Onc [address] [facility] [address] Referral ID Status Reason Start Date Expiration Date V isits Requested Visits Authorized [id number] Authorized 05/23/2022 06/05/2025 999 99 Encounter Details Date Type Department Care Team (Latest Contact Info) Description 03/23/2023 10:00 AM EST Hem/Onc Treatment Hematology/Oncology Treatment, [address] [place] [address] [facility], Chair2 Hem Onc [address] [place], [place] [address]AL[place] pinto [phone] Malignant neoplasm of prostate (HCC)*; Nausea; TANYA [...] LNP-s, No Preserve , Rodriguez-sucrose, Ages 12+ (Cloudacc) 04/06/2021 Pneumococcal Conjugate Vacc, 13 Valent (Prevnar) [...] Description 04/02/2023 4:30 PM EST Laboratory Laboratory State Neda [place]inal [address] [place] [address] Zoila Shen [address] [address] 04/16/2023 9:30 AM EST Pharmacy Pharmacy Hematology Oncology [address] [place] [address] [facility], [facility] Hem/Onc [address] [place] [address] 04/23/2023 4:30 PM EST Laboratory Laboratory [facility] State HermelindaHayti [address] [place] [phone] Hermel[place], Lab Scenery [address] [place] [address] 05/03/2023 1:30 PM EST Office Visit Radiation Oncology, [facility] [address] [place] [address] Crescencio Obrien MD [address] [place] [address] 05/22/2023 4:30 PM EDT Laboratory Laboratory [facility] State Neda Shen [address] [place] [phone] Hermelinda Lab Scenery [address] [place], [place] [address] 05/31/2023 9:40 AM EDT Office Visit Family Practice [facility] State Neda Shen [address] [place] [address] Kaz Rivas III, MD [address] [place], [place] [address] 06/20/2023 4:30 PM EDT Laboratory Laboratory [facility] State Neda Shen [address] [place] [phone] Hermelinda Lab Scenery [address] [place], [place] [address] 06/22/2023 2:30 PM EDT Telemedicine Hematology/Oncology, [address] [address] Stan Parra MD [address] [place] [address] Cart, Telemed [facility] Hem Onc Clinic [address] [place] [id number] 06/22/2023 3:00 PM EDT Immunization/Injection Hematology/Oncology Treatment, [facility] [address] [place] [address] [facility], Chair10 Hem Onc [address] [place] [address] Scheduled Procedures Name Priority Associated Diagnoses Date/Ti [...] unspecified documented in this encounter Administered Medications Active Administered Medications - up to 3 most recent administrations Medication Order MAR Action Action Date Dose Rate Site hEParin 100 UNIT/ML Lock Flush inj 500 Units 500 Units (5 mL), IV Lock, PRN Other, IV Flush, Starting on Sun03/23/23 at 1043, Until 03/24/23 at 1042, For 24 hours, Do not flush if lock, PICC, or central line not in place; IV infusing or unable to flush. sodium chloride 0.9 % flush central line 10 mL 10 mL, IV Push, PRN Other, IV Flush, Starting on Sun03/23/23 at 1043, Until 03/24/23 at 1042, For 24 hours, Do not flush if lock, PICC, or central line not in place; IV infusing or unable to flush. Inactive Administered Medications - up to 3 [...] the patient have Health Care Power of Court Reporter? Yes, not currently available Care Teams Resistor Testing Machine Operator Relationship Specialty Start Date End Date Kaz Rivas III, MD [address] [place] [address] PCP - General 10/25/1995 documented as of this encounter
--- OUTSIDE RECORDS SUMMARY | 2023-05-26 18:09 | External Medical Summary ---
Author Name Unknown Address Unknown Organization [id number]:[facility] - [address] [place] [place] [address] Laboratory Report Ordering Provider Test Date Status JESÚS BESS 04/23/2023 16:23:01 Final Every two weeks for three mo nths, then every month (patients with moderate hep impairment every week for one month, every two weeks for two months, then every month) Observation Date Value Abnormality Reference (Units ) Status BUN 04/23/2023 16:23:01 19 6-20 (mg/dL) Final Creatinine 04/23/2023 16:23:01 0.9 0.6-1.2 (mg/dL) Final Glomerular filtration rate/1.73 sq M.predicted [Volume Rate/Area] in Serum, Plasma or Blood by Creatinine-based formula (CKD-EPI) 04/23/2023 16:23:01 >90 >=60 (mL/min) Final eGFR is calculated based on the CKD-EPI 2020 equation SODIUM 04/23/2023 16:23:01 141 135-146 (m mol/L) Final Potassium 04/23/2023 16:23:01 4.0 3.5-5.1 (m mol/L) Final Cl 04/23/2023 16:23:01 105 98-107 (mm ol/L) Final CO2 04/23/2023 16:23:01 27 22-32 (mmo l/L) Final Anion gap 04/23/2023 16:23:01 9 7-15 (mmol /L) Final Glucose 04/23/2023 16:23:01 80 70-120 (mg /dL) Final Albumin 04/23/2023 16:23:01 4.0 3.8-5.0 (g /dL) Final AST (Aspartate aminotransferase) 04/23/2023 16:23:01 22 10-50 (U/L) Fin al Alk Phos 04/23/2023 16:23:01 96 35-130 (U/ L) Final Bilirubin, Total 04/23/2023 16:23:01 0.3 <=1 .2 (mg/dL) Final Calcium 04/23/2023 16:23:01 9.2 8.4-10.2 ( mg/dL) Final Protein 04/23/2023 16:23:01 6.8 6.0-8.3 (g /dL) Final ALT (Alanine aminotransferase) 04/23/2023 16:23:01 6 Below low normal 10-50 (U/L) Final Performing Location [facility] [address] [place] [address]
--- OUTSIDE RECORDS SUMMARY | 2023-05-26 18:09 | External Medical Summary | Summary of Care ---
Author Name Unknown Organization [facility] Address [address] [place] [address] Phone [phone] Care Team Providers Care Dairy Laboratory Technician Name Role Phone Evelyn FRANZ MD, Kaz Canela Primary Care Provider [phone] Reason for Visit * Reason Comments Treatment Eligard and IVF * Episode Based Medications (Routine) - Authorized Specialty Diagnoses / Procedures Referred By Aj t Referred To Contact Diagnoses Malignant neoplasm of prostate (HCC) Procedures [place] LEUPROLIDE ACETATE SUSPNSION Stan Parra MD [address] [place] [address] [facility] Hem/Onc [address] [place] [address] Referral ID Status Reason Start Date Expiration Date V isits Requested Visits Authorized [id number] Authorized 05/23/2022 06/05/2025 999 99 Encounter Details Date Type Department Care Team (Latest Contact Info) Description 03/23/2023 10:00 AM EST Hem/Onc Treatment Hematology/Oncology Treatment, [address] [address] [facility], Chair2 Hem Onc [address] [place], [place] [address] pinto [phone] Malignant neoplasm of prostate (HCC)*; Nausea; TANYA [...] State Neda Espinal [address] [place] [phone] Zoila Shenry [address] [place] [address] [address] [address] 05/23/2023 9:30 AM EDT Pharmacy Pharmacy Hematology Oncology [address] [place] [address] [facility], [facility] Hem/Onc [address] [place] [address] 05/31/2023 9:40 AM EDT Office Visit [facility] [address] [place] [address] [address] ClairKaz napier III, MD [address] [place] [address] 06/22/2023 1:20 PM EDT Laboratory Laboratory [facility] [address] [place] [phone] [facility] 200 [facility] [place] [address] 06/22/2023 2:30 PM EDT Telemedicine Hematology/Oncology, [address] [address] Stan Parra MD [address] [place] [address] Buffy, Telemed [facility] Hem Onc Clinic [address] [place] [address] 06/22/2023 3:00 PM EDT Immunization/Injection Hematology/Oncology Treatment, [address] [address] [facility], Chair10 Hem Onc [address] [place] [address] 11/06/2023 9:45 AM EDT Imaging Radiology [address], [place] [address] [facility] [place] [address] 11/14/2023 1:00 PM EDT Office Visit Radiation Oncology, [facility] [address] [place] [address] Crescencio Obrien MD 400 [facility] [place] [phone] Scheduled Procedures Name Priority Associated Diagnoses Date/Ti [...] the patient have Health Care Power of Trace Clerk? Yes, not currently available Care Teams Dairy Laboratory Technician Relationship Specialty Start Date End Date Kaz Rivas III, MD [address] [place] [address] PCP - General 10/25/1995 documented as of this encounter
--- OUTSIDE RECORDS SUMMARY | 2023-05-26 18:09 | External Medical Summary ---
Author Name Unknown Address Unknown Organization K[facility] [place] [address] Laboratory Report Ordering Provider Test Date Status JESÚS BESS 04/23/2023 16:23:01 Final Observation Date Value Abnormality Reference (Units ) Status SYNC LEUKOCYTES IN BLOOD BY AUTOMATED COUNT 04/23/2023 16:23:01 7.37 4.00-10.80 (K/uL) Final Segs 04/23/2023 16:23:01 80.8 Above high normal 40.0-75.0 (%) Final Lymphs % 04/23/2023 16:23:01 11.5 Below low normal 18.0-42.0 (%) Final Monos 04/23/2023 16:23:01 7.3 1.0-11.0 (%) Final Eosinophils 04/23/2023 16:23:01 0.1 0.0-6.0 (%) Final Basos 04/23/2023 16:23:01 0.3 0.0-2.0 (%) Final Absolute Segs 04/23/2023 16:23:01 5.95 1.80-7.70 (K/uL) Final Lymphs, absolute 04/23/2023 16:23:01 0.85 Below low normal 1.00-4.80 (K/ul) Final Monos, Abs 04/23/2023 16:23:01 0.54 0.00-1.10 (K/uL) Final Eos, Abs 04/23/2023 16:23:01 0.01 0.00-0.70 (K/uL) Final Basos, Abs 04/23/2023 16:23:01 0.02 0.00-0.20 (K/uL) Final Performing Location [facility] [address]
--- OUTSIDE RECORDS SUMMARY | 2023-05-26 18:09 | External Medical Summary ---
Author Name Unknown Address Unknown Organization K09[facility] [place] [address] Laboratory Report Ordering Provider Test Date Status JESÚS BESS 04/02/2023 10:09:30 Final Observation Date Value Abnormality Reference (Units ) Status SYNC LEUKOCYTES IN BLOOD BY AUTOMATED COUNT 04/02/2023 10:09:30 4.55 4.00-10.80 (K/uL) Final Segs 04/02/2023 10:09:30 75.0 40.0-75.0 (%) Final Lymphs % 04/02/2023 10:09:30 14.9 Below low normal 18.0-42.0 (%) Final Monos 04/02/2023 10:09:30 9.0 1.0-11.0 (%) Final Eosinophils 04/02/2023 10:09:30 0.9 0.0-6.0 (%) Final Basos 04/02/2023 10:09:30 0.2 0.0-2.0 (%) Final Absolute Segs 04/02/2023 10:09:30 3.41 1.80-7.70 (K/uL) Final Lymphs, absolute 04/02/2023 10:09:30 0.68 Below low normal 1.00-4.80 (K/ul) Final Monos, Abs 04/02/2023 10:09:30 0.41 0.00-1.10 (K/uL) Final Eos, Abs 04/02/2023 10:09:30 0.04 0.00-0.70 (K/uL) Final Basos, Abs 04/02/2023 10:09:30 0.01 0.00-0.20 (K/uL) Final Performing Location [facility] [place] [address]
--- OUTSIDE RECORDS SUMMARY | 2023-05-26 18:09 | External Medical Summary ---
Author Name Unknown Address Unknown Organization K09:[facility] [place] [address] Laboratory Report Ordering Provider Test Date Status JESÚS BESS 04/02/2023 10:09:30 Final Observation Date Value Abnormality Reference (Units ) Status WBC, Total 04/02/2023 10:09:30 4.55 4.00-10.8 0 (K/uL) Final RBC 04/02/2023 10:09:30 4.47 4.50-5.25 (M/uL) Final Hemoglobin 04/02/2023 10:09:30 13.5 Below low normal 14 .0-16.8 (g/dL) Final HCT 04/02/2023 10:09:30 40.4 40.0-48.4 (%) Final MCV 04/02/2023 10:09:30 90.4 82.0-99.5 (fL) Final MCH 04/02/2023 10:09:30 30.2 27.0-34.0 (pg) Final MCHC 04/02/2023 10:09:30 33.4 32.0-36.0 (g/dL) Final RDW 04/02/2023 10:09:30 13.1 11.5-15.5 (%) Final Platelets 04/02/2023 10:09:30 162 140-400 (K /uL) Final MPV 04/02/2023 10:09:30 10.4 6.6-11.1 ( fL) Final Performing Location [facility] [place] [address]
--- OUTSIDE RECORDS SUMMARY | 2023-05-26 18:09 | External Medical Summary | Summary of Care ---
Author Name Unknown Organization [facility] Address [address] [place] [address] Phone [phone] Care Team Providers Care Director Translation Name Role Phone Evelyn FRANZ MD, Kaz Canela Primary Care Provider [phone] Reason for Visit * Reason Onset Date Comments Medication Refill 05/02/2023 Encounter Details Date Type Department Care Team (Late st Contact Info) Description 05/02/2023 Refill Urology Kerri Robledo [address] [address] Bradley Uriarte Jr., MD [address] [place] [id number] Allergies Active Allergy Reactions Criticality Noted Date [...] the morning. 90 Capsule 3 05/02/2023 Active Tamsulosin HCl 0.4 MG Oral Capsule (Flomax)Indication s:in evening Take 1 Capsule by mouth in the morning. 90 Capsule 3 08/09/2022 Discontinue d(Refill) documented as of this encounter [...] LNP-s, No Preserve , Rodriguez-sucrose, Ages 12+ ([place]ter) 04/06/2021 Pneumococcal Conjugate Vacc, 13 Valent (Prevnar) [...] encounter Miscellaneous Notes * Telephone Encounter - Bradley Uriarte Jr., MD - 05/02/2023 3:08 PM EST Signed Prescriptions: Disp Refills Tamsulosin HCl 0.4 MG Oral Capsule (Flomax)90 Cap*3 Sig: Take 1 Capsule by mouth in the morning. Authorizing Provider: BRADLEY URIARTE JR * Telephone Encounter - Alba Gavin LPN - 05/02/2023 1:36 PM ESTPending Prescriptions: Disp Refills Tamsulosin HCl 0.4 MG Oral Capsule (Flomax)90 Cap*3 Sig: Take 1 Capsule by mouth in the morning. * Telephone Encounter - Alba Gavin LPN - 05/02/2023 1:35 PM EST Refill request for Tamsulosin. 08/09/2022 Visit date not found Review of patient's allergies indicates: Allergen Reactions Levaquin [Levofloxacin] Muscle pain Oxycodone Nausea/vomiting * Telephone Encounter - Shahana Santiago PHARM Tech - 05/02/2023 9:07 AM EST Did you pend patient's preferred pharmacy and medication before forwarding?yes [id number] Pending Prescriptions: Disp Refills Tamsulosin HCl 0.4 MG Oral Capsule (Floma*90 Cap*3 Sig: Take 1 Capsule by mouth in the morning. Last Visit: 08/09/2022 (in office), 10/26/2021 (telemedicine) Next Visit: Visit date not found If no future appointments scheduled, and last appointment is greater than a year ago, please schedule patient for a follow-up appointment Last date the medication was ordered: 08/09 Is this request for a controlled substance?No Urine Drug Screen:No results found. However, due to the size of the patient record, not all encounters were searched. Please check Results Review for a complete set of results. Patient Phone Numbers Labs: Lab Results Component Value Date/Time CREAT 0.9 04/23/2023 04:23 PM CREAT 0.76 (L) 02/13/2022 04:12 AM CREAT 0.76 (A) 02/13/2022 12:00 AM CREAT 0.9 12/18/2019 10:28 AM POTASSIUM 4.0 04/23/2023 04:23 PM POTASSIUM 3.6 02/13/2022 04:12 AM POTASSIUM 3.6 02/13/2022 12:00 AM POTASSIUM 4.6 12/18/2019 10:28 AM POTASSIUM 4.0 04/01/1996 03:05 PM TSH 2.12 01/03/2019 02:09 PM LDLCALC 110 12/11/2022 08:25 AM LDLCALC 120 12/18/2019 10:28 AM LDLDIRECT NOT APPLICABLE 12/18/2019 10:28 AM LDLDIRECT 138 (H) 04/15/2003 10:48 AM ALT 6 (L) 04/23/2023 04:23 PM ALT 13 12/18/2019 10:28 AM documented in this encounter Plan of Treatment Upcoming Encounters Date Type Department Care Team (Late st Contact Info) Description 05/03/2023 1:30 PM EST Office Visit Radiation Oncology, [facility] [address] [place] [address] Crescencio Obrien MD [address] [place] [address] 05/22/2023 4:30 PM EDT Laboratory Laboratory [place] [facility] [place] [address] [place] [phone] Zoila Shen [address] [place] [address] 05/23/2023 9:30 AM EDT Pharmacy Pharmacy Hematology Oncology [facility] [address] [place] [address] [facility] Hem/Onc [address] [place] [address] 05/31/2023 9:40 AM EDT Office Visit Family Practice [facility] [address] [place] [address] EvelynKaz napier III, MD [address] [place] [address] 06/22/2023 1:20 PM EDT Laboratory Laboratory [place] [place] [address] [place] [phone] Herm[facility] [address] [place] [address] 06/22/2023 2:30 PM EDT Telemedicine Hematology/Oncology, [address] [place] [address] Stan Parra MD [address] [place] [address] Cart, Telemed [facility] Hem Onc Clinic 400 [place] [address] 06/22/2023 3:00 PM EDT Immunization/Injection Hematology/Oncology Treatment, [address], [place] [address] [facility], Chair10 Hem Onc [address] [place] [address] Scheduled Procedures Name Priority Associated Diagnoses Date/Ti [...] the patient have Health Care Power of Electric Blanket Wirer? Yes, not currently available Care Teams Director Translation Relationship Specialty Start Date End Date Kaz Rivas III, MD [address] [place] [address] PCP - General 10/25/1995 documented as of this encounter
--- OUTSIDE RECORDS SUMMARY | 2023-05-26 18:09 | External Medical Summary | Summary of Care ---
Author Name Unknown Organization [facility] Address [address] [place] [address] Phone [phone] Care Team Providers Care Therapy Technician Name Role Phone Evelyn FRANZ MD, Kaz Canela Primary Care Provider [phone] Encounter Details Date Type Department Care Team ([facility] st Contact Info) Description 04/24/2023 Specialty Pharmacy [facility], [address], [facility] [place] [address] Medication, Mtm Specialty Refill, [address] [address] Allergies Active Allergy Reactions Criticality Noted Date [...] as of this encounter Progress Notes * Isabel Bess CPhT - 04/24/2023 12:53 PM EST Prescribed medication: Medication: Abiraterone/prednisone Shipment date: 04/30 Delivery method: Specialty Mail Location Medication Delivered too? Prescription Address: [address] [place] [phone] Isabel Bess CPhT [facility] 04/24/2023,12:54 PM documented in this encounter Plan of Treatment Upcoming Encounters Date Type Department Care Team (Late st Contact Info) Description 05/03/2023 1:30 PM EST Office Visit Radiation Oncology, [facility] [address] [place] [address] Crescencio Obrien MD [address] [place] [address] 05/22/2023 4:30 PM EDT Laboratory Laboratory [facility] [place] [address] [place] [phone] Zoila Shen [address] [place] [address] 05/31/2023 9:40 AM EDT Office Visit Family Practice [facility] [address] [place] [address] [place] Kaz FRANZ MD [address] [place] [address] 06/22/2023 1:20 PM EDT Laboratory Laboratory [place] [facility] [place] [address] [phone] Zoila Shen [address] [place] [address] 06/22/2023 2:30 PM EDT Telemedicine Hematology/Oncology, [address] [address] Stan Parra MD [address] [place], [place] [id number] Cart, Telemed [facility] Hem Onc Clinic [address] [place] [id number] 06/22/2023 3:00 PM EDT Immunization/Injection Hematology/Oncology Treatment, [address] [address] [facility], Chair10 Hem Onc [address] [place] [address] Scheduled Procedures Name Priority Associated Diagnoses Date/Ti [...] the patient have Health Care Power of Looper Fixer? Yes, not currently available Care Teams Therapy Technician Relationship Specialty Start Date End Date Kaz Rivas III, MD [address] [place] [address] PCP - General 10/25/1995 documented as of this encounter
--- OUTSIDE RECORDS SUMMARY | 2023-05-26 18:10 | External Medical Summary | Summary of Care ---
Author Name Unknown Organization [facility] Address [address] [place] [address] Phone [phone] Care Team Providers Care Heavy Equipment Sales Manager Name Role Phone Evelyn FRANZ MD, Kaz Canela Primary Care Provider [phone] Reason for Visit * Reason Comments Patient Assistance Program Encounter Details Date Type Department Care Team (Late st Contact Info) Description 06/07/[address] [facility] [address] [place] [address] Stan Parra MD [address] [place] [address] Allergies Active Allergy Reactions Criticality Noted Date Comments Levofloxacin Muscle pain 02/07/2018 Oxycodone Nausea/vomiting 02/07/2018 documented as of this encounter (statuses as of 03/21/2023) Medications Medication Sig Dispensed Refills Start Date [...] mouth twice daily 180 Tablet 3 3 Active Vitamin D3 10 MCG (400 UNIT) Oral Capsule Take 1 Capsule by mouth in the morning. 0 06/17/19 23 Discontinued Sucralfate 1 GM Oral Tablet (Carafate)Indica tions:Gastritis TAKE 1 TABLET 1 HOUR BEFOREMEALS AND AT BEDTIME, DISSOLVE IN WATER 120 Tablet 5 2 08/23/19 23 Discontinued Tamsulosin HCl 0.4 MG Oral Capsule [...] as of this encounter (statuses as of 03/21/2023) Active Problems Problem Noted Date Diagnosed Date [...] as of this encounter (statuses as of 03/21/2023) Resolved Problems Problem Noted Date Diagnosed Date Resolved Date Supraclavicular lymphadenopathy 02/11/2016 01/02/2018 Screening for prostate cancer 04/15/2003 05/20/2008 Overview: Resolved per Screening Diagnosis Protocol #6 Acute cholecystitis 11/25/2002 05/07/19 19 Diaphragmatic hernia 019 documented as of this encounter (statuses as of 03/21/2023) Immunizations Name Administration Dates Next Due COVID-19 [...] as of this encounter Progress Notes * Jordan Andrade OSA - 03/14/2023 2:29 PM EST 03/15/2023 - "Caterina, our buying team said they are waiting to hear from a tour sales representative from [facility] regarding the ordering issue but we have [...] Mcwilliams 03/14/2023 - Per Vida Kelly at [facility] "Piyush Fadi Eligard did not come in today [facility] Vida Mcwilliams is working with the buying [...] Info: Aetna Medicare Advantage Auth Expirin06/05/2025 Pharmacy/Company: [facility] Phone number: IM precision agriculture technician [place] Location: [facility] Estimated Delivery Date: 03/21/2023 - [facility] Appointment Date: 03/16/2023 Ordered Date: 03/02/2023 Delivery Address: Attn: 6th floor IIP POM [address] [place] [address] RX: Eligard Dose: 22.5mg 3 mo Quantity: [...] defer to 03/02/2023 to order Eligard from [facility] * Galina Barnett OSA - 12/06/2022 2:21 PM EDT Krysta Lr, medical laboratory technicians 12/06/2022 13:58 | Received 1 kit of Eligard 12/06/2022 Estimated Delivery Date: Received 12/06/2022-[facility] ABEL Donald [facility] 12/06/2022, 2:21 PM * Mary Jo Gar OSA - 11/27/2022 9:02 AM EDT 11/27/2022 - IM'd P to fill. Medication ordered. Defer to 12/06/2022 for delivery. POM Reason: Insurance mandated Insurance Info: Aetna Medicare Advantage Auth Expirin06/05/2025 Pharmacy/Company: [facility] Phone number: IM precision agriculture technician [place] Location: [facility] Estimated Delivery Date: 12/06/2022 - [facility] Appointment Date: 12/11/2022 Ordered Date: 11/27/2022 Delivery Address: Attn: 6th floor IIP POM [address] [place] [address] RX: Eligard Dose: 22.5mg 3 mo Quantity: [...] 4 DX: C61 Prostate Cancer ABEL Cerrato [facility] 11/27/2022, 1:19 PM * Mary Jo Gar OSA - 11/20/2022 12:01 PM EDT 11/20/2022 - Defer to 01/27/2023 to order refill. ABEL Cerrato [facility] 11/20/2022, 12:02 PM * Mary Jo Gar OSA - 08/31/2022 10:15 AM EDT 09/08/2022 - Received medication per pharmacy staff. Defer 11/20/2022 for refill. 08/31/2022 - IM'd [facility] for refill. Defer to 09/07/2022 for delivery. POM Reason: Insurance mandated Insurance Info: Aetna Medicare Advantage Auth Expirin06/05/2025 Pharmacy/Company: [facility] Phone number: IM precision agriculture technician [place] Location:[facility] Estimated Delivery Date: received 09/07/2022 - [facility] Appointment Date: 09/11/2022 Ordered Date:08/31/2022 Delivery Address:Attn: 6th floor IIP [address] [place] [address] RX:Eligard Dose:22.5mg 3 mo Quantity:1 Manufactured Supplied:No [...] x 4 DX:C61 Prostate Cancer ABEL Cerrato [facility] 08/31/2022, 10:18 AM * Liza Hoff OSA - 06/15/2022 2:56 PM EDT Estimated Delivery Date: Received 06/15/2022 - [facility] * Mary Jo Gar OSA - 06/14/2022 11:44 AM EDT 06/14/2022 - IM'd [facility] to fill script. Defer to 06/15/2022 for delivery. POM Reason: Insurance mandated Insurance Info: Aetna Medicare Advantage Auth Expirin06/05/2025 Pharmacy/Company: P Phone number: IM precision agriculture technician [place] Location: [facility] Estimated Delivery Date: 06/15/2022 - [facility] Appointment Date: 06/16/2022 Ordered Date:06/14/2022 Delivery Address: Attn: 6th floor IIP POM [address] [place] [address] RX: Eligard Dose: 22.5mg 3 mo Quantity: [...] 4 DX: C61 Prostate Cancer ABEL Cerrato [facility] 06/14/2022, 11:50 AM * Galina Barnett OSA - 06/07/2022 9:47 AM EDT 06/07/2022- Reached out to Alba Iqbal for test claim POM Reason: Insurance Info: Auth Expiring: Pharmacy/Company: Phone number: [place] Location: [facility] Estimated Delivery Date: TBD Appointment Date: Ordered Date: Delivery Address: Attn: 6th floor [facility] [address] [facility] [address] RX: Eligard Dose: 22.5mg 3 mo Quantity: [...] 4 DX: C61 Prostate Cancer ABEL Donald [facility] 06/07/2022, 10:14 AM documented in this encounter Plan of Treatment Upcoming Encounters Date Type Department Care Team (Late st Contact Info) Description 03/21/2023 4:50 PM EST Laboratory Laboratory [facility] [place] [address] [place] [address] Hermelinda [facility] [address] [place] [address] 03/22/2023 8:50 AM EST Laboratory Laboratory [address] [place] [address] [place] [address] Hermelinda Lab [address] [place] [address] 03/23/2023 9:30 AM EST Telemedicine Hematology/Oncology, [facility] 400 [facility] [address] Stan Parra MD [address] [place] [address] Cart, Telemed [facility] Hem Onc Clinic [address] [place] [address] 03/23/2023 10:00 AM EST Immunization/Injection Hematology/Oncology Treatment, [facility] [address] [place] [address] [facility], Chair5 Hem Onc [address] [place] [address] 04/16/2023 9:30 AM EST Pharmacy Pharmacy Hematology Oncology [facility] [address] [place] [address] [facility], [facility] Clinic Hem/Onc [address] [place] [address] 05/03/2023 1:30 PM EST Office Visit Radiation Oncology, [facility] [address] [place] [address] Crescencio Obrien MD [address] [place] [address] 05/31/2023 9:40 AM EDT Office Visit Family Practice [facility] [address] [place] [address] Kaz Rivas III, MD [address] [place] [address] Scheduled Procedures Name Priority Associated Diagnoses Date/Ti me COLONOSCOPY FLEXIBLE PROXIMA L DIAGNOSTIC Recall History of colonic polyps Health Maintenance Due Date Last Done Comments Depression Screening 01/04/2020 01/03/2019 DTaP,Tdap,and Td Vaccines (2 - Td or Tdap) 08/25/2020 08/25/2010 COVID-19 Vaccine ( - season) 2022 04/06/2021, 05/21/2020, 04/23/2020 Influenza Vaccine (FLU shot) (#1) 2022 01/11/2022, 12/18/2019, 11/22/2018, Additional history exists GFR 02/11/2024 02/10/2023, 04/2022, 12/11/2022, Additional history exists Albumin/Creatinine Ratio 10/05/2024 10/05/2021 [...] the patient have Health Care Power of Lacquer Pin Press Operator? Yes, not currently available Care Teams Heavy Equipment Sales Manager Relationship Specialty Start Date End Date Kaz Rivas III, MD [address] [place] [address] PCP - General 10/25/1995 documented as of this encounter
--- OUTSIDE RECORDS SUMMARY | 2023-05-26 18:10 | External Medical Summary | Summary of Care ---
Author Name Unknown Organization [facility] Address [address] [place] [address] Phone [phone] Care Team Providers Care Mail Opener Name Role Phone Evelyn FRANZ MD, Kaz Canela Primary Care Provider [phone] Reason for Visit * Reason Comments Patient Assistance Program Encounter Details Date Type Department Care Team (Late st Contact Info) Description 06/07/2022 Documentation Hematology Oncology [facility] [address] [place] [address] Stan Parra MD [address] [place] [address] Allergies Active Allergy Reactions Criticality [...] they are waiting to hear from a sales representative trainee from [facility] regarding the ordering issue but we [...] Mcwilliams 03/14/2023 - Per Vida Kelly at [facility] "Piyush Fadi Eligard did not come in today [facility] Vida Mcwilliams is working with the buying [...] Info: Aetna Medicare Advantage Auth Expirin06/05/2025 Pharmacy/Company: [facility] Phone number: IM tire and lube technician [place] Location: [facility] Estimated Delivery Date: 03/21/2023 - [facility] Appointment Date: 03/16/2023 Ordered Date: 03/02/2023 Delivery Address: Attn: 6th floor IIP POM [address] [place] [address] RX: Eligard Dose: 22.5mg 3 mo Quantity: [...] - 12/06/2022 2:21 PM EDT Krysta Lr, face burler 12/06/2022 13:58 | Received 1 kit of Eligard 12/06/2022 Estimated Delivery Date: Received 12/06/2022-[facility] ABEL Donald [facility] 12/06/2022, 2:21 PM * Mary Jo Gar OSA - 11/27/2022 9:02 AM EDT 11/27/2022 - IM'd P to fill. Medication ordered. Defer to 12/06/2022 for delivery. POM Reason: Insurance mandated Insurance Info: Aetna Medicare Advantage Auth Expirin06/05/2025 Pharmacy/Company: [facility] Phone number: IM tire and lube technician [place] Location: [facility] Estimated Delivery Date: 12/06/2022 - [facility] Appointment Date: 12/11/2022 Ordered Date: 11/27/2022 Delivery Address: Attn: 6th floor IIP POM [address] [place] [address] RX: Eligard Dose: 22.5mg 3 mo Quantity: [...] 4 DX: C61 Prostate Cancer ABEL Cerrato [facility] 11/27/2022, 1:19 PM * Mary Jo Gar OSA - 11/20/2022 12:01 PM EDT 11/20/2022 - Defer to 01/27/2023 to order refill. ABEL Cerrato [facility] 11/20/2022, 12:02 PM * Mary Jo Gar OSA - 08/31/2022 10:15 AM EDT 09/08/2022 - Received medication per pharmacy staff. Defer 11/20/2022 for refill. 08/31/2022 - IM'd [facility] for refill. Defer to 09/07/2022 for delivery. POM Reason: Insurance mandated Insurance Info: Aetna Medicare Advantage Auth Expirin06/05/2025 Pharmacy/Company: [facility] Phone number: IM tire and lube technician [place] Location:[facility] Estimated Delivery Date: received 09/07/2022 - [facility] Appointment Date: 09/11/2022 Ordered Date:08/31/2022 Delivery Address:Attn: 6th floor IIP [address] [place] [address] RX:Eligard Dose:22.5mg 3 mo Quantity:1 Manufactured Supplied:No [...] x 4 DX:C61 Prostate Cancer ABEL Cerrato [facility] 08/31/2022, 10:18 AM * Liza Hoff OSA - 06/15/2022 2:56 PM EDT Estimated Delivery Date: Received 06/15/2022 - [facility] * Mary Jo Gar OSA - 06/14/2022 11:44 AM EDT 06/14/2022 - IM'd [facility] to fill script. Defer to 06/15/2022 for delivery. POM Reason: Insurance mandated Insurance Info: Aetna Medicare Advantage Auth Expirin06/05/2025 Pharmacy/Company: P Phone number: IM tire and lube technician [place] Location: [facility] Estimated Delivery Date: 06/15/2022 - [facility] Appointment Date: 06/16/2022 Ordered Date:06/14/2022 Delivery Address: Attn: 6th floor IIP POM [address] [place] [address] RX: Eligard Dose: 22.5mg 3 mo Quantity: [...] 4 DX: C61 Prostate Cancer ABEL Cerrato [facility] 06/14/2022, 11:50 AM * Galina Barnett OSA - 06/07/2022 9:47 AM EDT 06/07/2022- Reached out to Alba Iqbal for test claim POM Reason: Insurance Info: Auth Expiring: Pharmacy/Company: Phone number: [place] Location: [facility] Estimated Delivery Date: TBD Appointment Date: Ordered Date: Delivery Address: Attn: 6th floor [facility] [address] [facility] [address] RX: Eligard Dose: 22.5mg 3 mo Quantity: [...] 4 DX: C61 Prostate Cancer ABEL Donald [facility] 06/07/2022, 10:14 AM documented in this encounter Plan of Treatment Upcoming Encounters Date Type Department Care Team (Late st Contact Info) Description 03/21/2023 4:50 PM EST Laboratory Laboratory [facility] [place] [address] [place] [address] Hermelinda [facility] [address] [place] [address] 03/22/2023 8:50 AM EST Laboratory Laboratory [address] [place] [address] [place] [address] Hermelinda Lab [address] [place] [address] 03/23/2023 9:30 AM EST Telemedicine Hematology/Oncology, [facility] 400 [facility] [address] Stan Parra MD [address] [place] [address] Cart, Telemed [facility] Hem Onc Clinic [address] [place] [address] 03/23/2023 10:00 AM EST Immunization/Injection Hematology/Oncology Treatment, [facility] [address] [place] [address] [facility], Chair5 Hem Onc [address] [place] [address] 04/16/2023 9:30 AM EST Pharmacy Pharmacy Hematology Oncology [facility] [address] [place] [address] [facility], [facility] Hem/Onc [address] [place] [address] 05/03/2023 1:30 PM EST Office Visit Radiation Oncology, [facility] [address] [place] [address] Crescencio Obrien MD [address] [place] [address] 05/31/2023 9:40 AM EDT Office Visit Family Practice [facility] [address] [place] [address] Kaz Rivas III, MD [address] [place] [address] Scheduled Procedures Name Priority Associated Diagnoses Date/Ti [...] the patient have Health Care Power of Implementation Consultant? Yes, not currently available Care Teams Mail Opener Relationship Specialty Start Date End Date Kaz Rivas III, MD [address] [place] [address] PCP - General 10/25/1995 documented as of this encounter
--- OUTSIDE RECORDS SUMMARY | 2023-05-26 18:10 | External Medical Summary | Summary of Care ---
Author Name Unknown Organization [facility] Address [address] [place] [address] Phone [phone] Care Team Providers Care Land Lease Information Clerk Name Role Phone Evelyn FRANZ MD, Kaz Canela Primary Care Provider [phone] Reason for Visit * Reason Comments Patient Assistance Program Encounter Details Date Type Department Care Team (Late st Contact Info) Description 06/07/[address] [facility] [address] [place] [address] Stan Parra MD [address] [place] [address] Allergies Active Allergy Reactions Criticality Noted Date Comments Levofloxacin Muscle pain 02/07/2018 Oxycodone Nausea/vomiting 02/07/2018 documented as of this encounter (statuses as of 03/16/2023) Medications Medication Sig Dispensed Refills Start Date [...] as of this encounter (statuses as of 03/16/2023) Active Problems Problem Noted Date Diagnosed Date [...] as of this encounter (statuses as of 03/16/2023) Resolved Problems Problem Noted Date Diagnosed Date Resolved Date Supraclavicular lymphadenopathy 02/11/2016 01/02/2018 Screening for prostate cancer 04/15/2003 05/20/2008 Overview: Resolved per Screening Diagnosis Protocol #6 Acute cholecystitis 11/25/2002 05/07/19 19 Diaphragmatic hernia 019 documented as of this encounter (statuses as of 03/16/2023) Immunizations Name Administration Dates Next Due COVID-19 [...] they are waiting to hear from a ambulatory services representative from [facility] regarding the ordering issue but we have [...] Mcwilliams 03/14/2023 - Per Vida Kelly at [facility] "Piyush Fadi Eligard did not come in today [facility] Vida Mcwilliams is working with the buying [...] Info: Aetna Medicare Advantage Auth Expirin06/05/2025 Pharmacy/Company: [facility] Phone number: IM bench repair technician [place] Location: [facility] Estimated Delivery Date: 03/21/2023 - [facility] Appointment Date: 03/16/2023 Ordered Date: 03/02/2023 Delivery Address: Attn: 6th floor IIP POM [address] [place] [address] RX: Eligard Dose: 22.5mg 3 mo Quantity: [...] - 12/06/2022 2:21 PM EDT Krysta Lr, clinic charge nurse 12/06/2022 13:58 | Received 1 kit of Eligard 12/06/2022 Estimated Delivery Date: Received 12/06/2022-[facility] 12/06/2022, 2:21 PM * Mary Jo Gar OSA - 11/27/2022 9:02 AM EDT 11/27/2022 - IM'd P to fill. Medication ordered. Defer to 12/06/2022 for delivery. POM Reason: Insurance mandated Insurance Info: Aetna Medicare Advantage Auth Expirin06/05/2025 Pharmacy/Company: [facility] Phone number: IM bench repair technician [place] Location: [facility] Estimated Delivery Date: 12/06/2022 - [facility] Appointment Date: 12/11/2022 Ordered Date: 11/27/2022 Delivery Address: Attn: 6th floor IIP POM [address] [place] [address] RX: Eligard Dose: 22.5mg 3 mo Quantity: [...] 4 DX: C61 Prostate Cancer [facility] 11/27/2022, 1:19 PM * Mary Jo Gar OSA - 11/20/2022 12:01 PM EDT 11/20/2022 - Defer to 01/27/2023 to order refill. [facility] 11/20/2022, 12:02 PM * Mary Jo Gar OSA - 08/31/2022 10:15 AM EDT 09/08/2022 - Received medication per pharmacy staff. Defer 11/20/2022 for refill. 08/31/2022 - IM'd [facility] for refill. Defer to 09/07/2022 for delivery. POM Reason: Insurance mandated Insurance Info: Aetna Medicare Advantage Auth Expirin06/05/2025 Pharmacy/Company: [facility] Phone number: IM bench repair technician [place] Location:[facility] Estimated Delivery Date: received 09/07/2022 - [facility] Appointment Date: 09/11/2022 Ordered Date:08/31/2022 Delivery Address:Attn: 6th floor IIP [address] [place] [address] RX:Eligard Dose:22.5mg 3 mo Quantity:1 Manufactured Supplied:No [...] x 4 DX:C61 Prostate Cancer [facility] 08/31/2022, 10:18 AM * Liza Hoff OSA - 06/15/2022 2:56 PM EDT Estimated Delivery Date: Received 06/15/2022 - [facility] * Mary Jo Gar OSA - 06/14/2022 11:44 AM EDT 06/14/2022 - IM'd [facility] to fill script. Defer to 06/15/2022 for delivery. POM Reason: Insurance mandated Insurance Info: Aetna Medicare Advantage Auth Expirin06/05/2025 Pharmacy/Company: P Phone number: IM bench repair technician [place] Location: [facility] Estimated Delivery Date: 06/15/2022 - [facility] Appointment Date: 06/16/2022 Ordered Date:06/14/2022 Delivery Address: Attn: 6th floor IIP POM [address] [place] [address] RX: Eligard Dose: 22.5mg 3 mo Quantity: [...] 4 DX: C61 Prostate Cancer [facility] 06/14/2022, 11:50 AM * Galina Barnett OSA - 06/07/2022 9:47 AM EDT 06/07/2022- Reached out to Alba Iqbal for test claim POM Reason: Insurance Info: Auth Expiring: Pharmacy/Company: Phone number: [place] Location: [facility] Estimated Delivery Date: TBD Appointment Date: Ordered Date: Delivery Address: Attn: 6th floor IIP POM [address] [place] [address] RX: Eligard Dose: 22.5mg 3 mo Quantity: [...] 4 DX: C61 Prostate Cancer [facility] 06/07/2022, 10:14 AM documented in this encounter Plan of Treatment Upcoming Encounters Date Type Department Care Team (Late st Contact Info) Description 03/22/2023 8:50 AM EST Laboratory Laboratory [facility] [place] [address] [place] [phone] [place], Lab Scenery [address] [place] [address] 03/23/2023 9:30 AM EST Telemedicine Hematology/Oncology, [address] [address] Stan Parra MD [address] [place] [address] [facility] [address] [place] [address] [id number] 03/23/2023 10:00 AM EST Immunization/Injection Hematology/Oncology Treatment, [address] [place] [address] Gl, Chair5 Hem Onc [address] [place] [address] 04/16/2023 9:30 AM EST Pharmacy Pharmacy Hematology Oncology [facility] [address] [place] [address] [facility] Hem/Onc [address] [place] [address] 05/03/2023 1:30 PM EST Office Visit Radiation Oncology, [facility] [address] [place] [address] Crescencio Obrien MD [address] [place] [address] 05/31/2023 9:40 AM EDT Office Visit Family Practice [facility] 200 [facility] [place] [address] Kaz Rivas III, MD [address] [place] [address] Scheduled Procedures Name Priority Associated Diagnoses Date/Ti [...] 11/22/2018, Additional history exists GFR 02/11/2024 02/10/2023, 11/0 04/2022, 12/11/2022, Additional history exists Albumin/Creatinine Ratio [...] the patient have Health Care Power of Field Sales Trainer? Yes, not currently available Care Teams Land Lease Information Clerk Relationship Specialty Start Date End Date Kaz Rivas III, MD [address] [place] [address] PCP - General 10/25/1995 documented as of this encounter
--- OUTSIDE RECORDS SUMMARY | 2023-05-26 18:10 | External Medical Summary ---
Author Name Unknown Address Unknown Organization K01:[facility] - [address] [place] [address] Laboratory Report Ordering Provider Test Date Status BOB BESSJUNIOR 03/21/2023 16:35:06 Final Observation Date Value Abnormality Reference (Units ) Status PSA 03/21/2023 16:35:06 0.03 <4.10 (ng/ mL) Final Performing Location [facility] - [address] [place] [address]
--- OUTSIDE RECORDS SUMMARY | 2023-05-26 18:10 | External Medical Summary | Summary of Care ---
Author Name Unknown Organization [facility] Address [address] [place] [address] Phone [phone] Care Team Providers Care Waffle Machine Operator Name Role Phone Evelyn FRANZ MD, Kaz Canela Primary Care Provider [phone] Reason for Visit * Reason Comments Follow Up Encounter Details Date Type Department Care Team (Late st Contact Info) Description 03/23/2023 9:30 AM EST Telemedicine Hematology/Oncology, [address] [id number] Stan Parra MD [address] [place] [address] [facility] [address] [place] [address] Malignant neoplasm of prostate (HCC)*; [...] two unique identifiers. Patient (or authorized legal premium service representative) was then informed that this was [...] that I have reviewed their record in [facility] and presented the opportunity for them to ask any questions regarding the visit today. The patient agreed to participate. Patient's Name: Piyush Aponte MR #: [id number] : 1950 Today's date: 03/23/2023 PCP: Kaz Rivas III, MD Referring provider: Bradley Uriarte Jr., MD Reason for referral: Prostate cancer (HCC) Hematology/Oncology diagnosis: Prostate AWILDA, with some cores showing intraductal histology, Very high risk group, Stage IIIC, [id number], Grade group 5: [place] score 4+5=9, Cores W/ Carcinoma(02/23), PSA = [...] adenocarcinoma. Patient [address] [facility]. Patient recently fell from a tree, and had compression fracture. He is currently on a brace, and neck collar. In 2018, patient complained of difficulty urination, and weak urinary stream. His PSA on March 07, 2018 was 20.83. 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 He [...] performed by Umair Cook MD at [facility] COLONOSCOPY, DIAGNOSTIC (RECTUM) 08/17/2021 benign polyp, diverticulosis, repeat 5 yrs / COLONOSCOPY FLEXIBLE PROXIMAL DIAGNOSTIC performed by Chavez Abbasi MD at [facility] COLONOSCOPY, GI REFERRAL OP 03/02/2006 hyperplastic polyps--repeat 5 years COLORECTAL CANCER SCREEN;W/FLE 06/05/2001 70 cms wnl DENTAL SURGERY PROCEDURE NEC Dental Surgery Procedure EGD, FLEXIBLE, DIAGNOSTIC 12/22/2011 UPPER GI ENDOSCOPY DIAGNOSTIC performed by Berkley Rosen DO at [facility] bile reflux and inlet patch INFORMATION 1982 Herniated disc repair KNEE ARTHROSCOPY/MENISCUS REPAIR Left 2014 KNEE ARTHROSCOPY/SURGERY Left 09/23/2020 shave menniscus chondroplasty REMOVE GALLBLADDER 11/17/2002 Cholecystectomy - open [facility] Dr. Gold REMOVE LUMBAR SPINE LAMINA, 3+ SEGS 1981 Lumbar Disk Excision REMOVE TONSILS & ADENOIDS, UNDER 12 Tonsillectomy/Adenoids,<12 Y/O SHOULDER ARTHROSCOPY/DEBRIDEMENT Left 2017 STRESS TREADMILL 2000 wnl TRANSPERINEAL BX OF PROSTATE, STEREOTACTIC N/A 04/30/2018 TRANSPERINEAL BX OF PROSTATE, STEREOTACTIC performed by Vy Tyler MD at [facility] UPPER ENDOSCOPY GI REFERRAL OP 03/02/2006 acid [...] Andrade OSA Progress Notes Signed Ricardo Gordon [facility] Progress Notes Signed Vida Kelly CPhT Telephone Encounter Signed Indy Sanchez OSA Telephone Encounter Signed Jennifer Rocha LPN Details More values are hidden. [...] intraductal histology, Very high risk group, StageIIIC, [id number], Grade group 5: [place] score 4+5=9, Cores W/ Carcinoma(02/23), PSA = [...] reports that he is traveling tomorrow to [place] and will stay there for 7 to 10 days and he will not be able to reschedule his travel. I instructed himto be very well-hydrated during his travel, takes Zofran as needed, and if he continued to have nausea, and oral intake, or if he develops diarrhea, to go to the emergency room in [place]. Patient understood and will follow. Will repeat CMP in 10 days (after he comes back from [place]). Package insert of Zytiga, and Eligard reviewed, [...] By: Hem/Onc --- Protocol: SCP - HYDRATION [id number] Check-out note: OK for Eilgard Shot today, and q.3 months IV fluids with Zofran today CMP in 10 days CBC with diff, CMP Q monthly Return to clinic with Fidel in 3 months with CBC with diff, CMP, PSA This chart was completed in part utilizing [employer] Speech Voice Recognition Software. Grammatical errors, random [...] why. No fever. documented in this encounter Plan of Treatment Upcoming Encounters Date Type Department Care Team (Late st Contact Info) Description 04/16/2023 9:30 AM EST Pharmacy Pharmacy Hematology Oncology [address] [address] [facility] Hem/Onc [address] [place] [address] 05/03/2023 1:30 PM EST Office Visit Radiation Oncology, [facility] [address] [place] [address] Crescencio Obrien MD [address] [place] [address] 05/31/2023 9:40 AM EDT Office Visit Family Practice [place] 200 [facility] [place] [address] Kaz Rivas III, MD 200 [facility] [address] Scheduled Procedures Name Priority Associated Diagnoses Date/Ti [...] the patient have Health Care Power of Preschool Principal? Yes, not currently available Care Teams Waffle Machine Operator Relationship Specialty Start Date End Date Kaz Rivas III, MD [address] [place] [address] PCP - General 10/25/1995 documented as of this encounter"
--- OUTSIDE RECORDS SUMMARY | 2023-05-26 18:10 | External Medical Summary | Summary of Care ---
Author Name Unknown Organization [facility] Address [address] [place] [address] Phone [phone] Care Team Providers Care Mathematical Physicist Name Role Phone Evelyn FRANZ MD, Kaz Canela Primary Care Provider [phone] Encounter Details Date Type Department Care Team ([facility] st Contact Info) Description 03/02/2023 Specialty Pharmacy [facility], [address] [place] [address] Medication, Mtm Specialty Refill, [address] [address] Allergies Active Allergy Reactions Criticality Noted Date [...] as of this encounter Progress Notes * Vida Kelly CPhT - 03/16/2023 11:56 AM EST New ship date 03/20 DIEGO for POM is aware. Vida Kelly Molded Frames Assembler [facility] 03/16/2023,11:58 AM * Ricardo Gordon RPh - 03/15/2023 4:50 PM EST Left message regarding Meredith backorder at provider's office. Advised we will call when available Ricardo Gordon Rph [facility] 03/15/2023,4:50 PM * Vida Kelly CPhT - 03/02/2023 10:46 AM EST Prescribed medication: Medication: meredith galloway md office Shipment date: 03/14 Delivery method: Specialty Mail Location Medication Delivered too? MD OFFICE [address] [place] [address] Att: 6th Floor IIP POM Vida Kelly CPhT [facility] 03/02/2023,10:46 AM documented in this encounter Plan of Treatment Upcoming Encounters Date Type Department Care Team (Late st Contact Info) Description 03/22/2023 8:50 AM EST Laboratory Laboratory [place] Neda [place] [address] [place] [id number] [place], Lab Scenery [address] [place] [address] 03/23/2023 9:30 AM EST Telemedicine Hematology/Oncology, [address] [address] Stan Parra MD [address] [place] [address] Cart, Telemed [facility] Hem Onc Clinic [address] [place] [address] 03/23/2023 10:00 AM EST Immunization/Injection Hematology/Oncology Treatment, [facility] [address] [place] [address] [facility], Chair5 Hem Onc [address] [place] [address] 04/16/2023 9:30 AM EST Pharmacy Pharmacy Hematology Oncology [address] [address] [facility] Hem/Onc [address] [place] [address] 05/03/2023 1:30 PM EST Office Visit Radiation Oncology, [facility] [address] [place] [address] Crescencio Obrien MD [address] [place] [address] 05/31/2023 9:40 AM EDT Office Visit Family Practice [facility] 200 [facility] [place] [address] Kaz Rivas III, MD [address] [place] [address] Scheduled Procedures Name Priority Associated Diagnoses Date/Ti me COLONOSCOPY FLEXIBLE PROXIMA L DIAGNOSTIC Recall History of colonic polyps Health Maintenance Due Date Last Done Comments Depression Screening 01/04/2020 01/03/2019 DTaP,Tdap,and Td Vaccines (2 - Td or Tdap) 08/25/2020 08/25/2010 COVID-19 Vaccine ( season) 2022 04/06/2021, 05/21/2020, 04/23/2020 Influenza Vaccine (FLU shot) (#1) 2022 01/11/2022, 12/18/2019, 11/22/2018, Additional history exists GFR 02/11/2024 02/10/2023, 1104/2022, 12/11/2022, Additional history exists Albumin/Creatinine Ratio 10/05/2024 [...] the patient have Health Care Power of Green House Manager? Yes, not currently available Care Teams Mathematical Physicist Relationship Specialty Start Date End Date Kaz Rivas III, MD 200 [facility] [place] [address] PCP - General 10/25/1995 documented as of this encounter
--- OUTSIDE RECORDS SUMMARY | 2023-05-26 18:10 | External Medical Summary | Summary of Care ---
Author Name Unknown Organization [facility] Address [address] [place] [address] Phone [phone] Care Team Providers Care Manufacturing Maintenance Technician Name Role Phone Evelyn FRANZ MD, Kaz Canela Primary Care Provider [phone] Reason for Visit * Reason Comments Patient Assistance Program Encounter Details Date Type Department Care Team (Late st Contact Info) Description 06/07/2022 Documentation Hematology Oncology [facility] [address] [place] [address] Stan Parra MD [address] [place] [address] Allergies Active Allergy Reactions Criticality [...] refill. Estimated Delivery Date: received 03/21/2023 - [facility] Appointment Date: 03/16/2023 Ordered Date: 03/02/2023 Delivery Address: Attn: 6th [address] [place] [address] RX: Eligard Dose: 22.5mg 3 mo Quantity: 1 Manufactured Supplied: No Refills remaining: Injection Number for this order: Next Refill: 05/16/2023 Upcoming Appt: 05/30/2023 * Jordan Andrade OSA - 03/14/2023 2:29 PM EST 03/15/2023 - "Caterina, our buying team said they are waiting to hear from a merchandising representative from [facility] regarding the ordering issue but we have [...] Mcwilliams 03/14/2023 - Per Vida Kelly at [facility] "Piyush Aponte Eligard did not come in today [facility] Vida Mcwilliams is working with the [...] Info: Aetna Medicare Advantage Auth Expirin06/05/2025 Pharmacy/Company: [facility] Phone number: IM laser/electro optics technician [place] Location: [facility] Estimated Delivery Date: 03/21/2023 - [facility] Appointment Date: 03/16/2023 Ordered Date: 03/02/2023 Delivery Address: Attn: 6th floor IIP POM [address] [facility] [place] [address] RX: Eligard Dose: 22.5mg 3 mo Quantity: [...] defer to 03/02/2023 to order Eligard from [facility] * Galina Barnett OSA - 12/06/2022 2:21 PM EDT Krysta Lr, tracer powder blender 12/06/2022 13:58 | Received 1 kit of Eligard 12/06/2022 Estimated Delivery Date: Received 12/06/2022-[facility] 12/06/2022, 2:21 PM * Mary Jo Gar OSA - 11/27/2022 9:02 AM EDT 11/27/2022 - IM'd [facility] to fill. Medication ordered. Defer to 12/06/2022 for delivery. POM Reason: Insurance mandated Insurance Info: Aetna Medicare Advantage Auth Expirin06/05/2025 Pharmacy/Company: [facility] Phone number: IM laser/electro optics technician [place] Location: [facility] Estimated Delivery Date: 12/06/2022 - [facility] Appointment Date: 12/11/2022 Ordered Date: 11/27/2022 Delivery Address: Attn: 6th floor IIP POM [address] [place] [address] RX: Eligard Dose: 22.5mg 3 mo Quantity: [...] 4 DX: C61 Prostate Cancer [facility] 11/27/2022, 1:19 PM * Mary Jo Gar OSA - 11/20/2022 12:01 PM EDT 11/20/2022 - Defer to 01/27/2023 to order refill. [facility] 11/20/2022, 12:02 PM * Mary Jo Gar OSA - 08/31/2022 10:15 AM EDT 09/08/2022 - Received medication per pharmacy staff. Defer 11/20/2022 for refill. 08/31/2022 - IM'd [facility] for refill. Defer to 09/07/2022 for delivery. POM Reason: Insurance mandated Insurance Info: Aetna Medicare Advantage Auth Expirin06/05/2025 Pharmacy/Company: [place] [facility] Phone number: IM laser/electro optics technician [place] Location:[facility] Estimated Delivery Date: received 09/07/2022 - [facility] Appointment Date: 09/11/2022 Ordered Date:08/31/2022 Delivery Address:Attn: 6th floor IIP POM 400 [place] [address] RX:Eligard Dose:22.5mg 3 mo Quantity:1 Manufactured Supplied:No [...] x 4 DX:C61 Prostate Cancer [facility] 08/31/2022, 10:18 AM * Liza Hoff OSA - 06/15/2022 2:56 PM EDT Estimated Delivery Date: Received 06/15/2022 - [facility] * Mary Jo Gar OSA - 06/14/2022 11:44 AM EDT 06/14/2022 - IM'd [facility] to fill script. Defer to 06/15/2022 for delivery. POM Reason: Insurance mandated Insurance Info: Aetna Medicare Advantage Auth Expirin06/05/2025 Pharmacy/Company: [facility] Phone number: IM laser/electro optics technician [place] Location: [facility] Estimated Delivery Date: 06/15/2022 - [facility] Appointment Date: 06/16/2022 Ordered Date:06/14/2022 Delivery Address: Attn: 6th floor IIP POM [address] [place] [address] RX: Eligard Dose: 22.5mg 3 mo Quantity: 1 Manufactured Supplied: No Refills remaining: Injection Number for this order: 1st Paid Claim at time of order: Valid Prior Auth on File at Ordering Pharmacy: Commercial Insurance: Co pay card on file: Medicare Insurance: Co pay assistance: Last Treatment Date: NA Next Refill: 08/25/2022 Upcoming Appt: Prescribing Physician: Stan Parar [place] Schedule: Q3 months x 4 DX: C61 Prostate Cancer [facility] 06/14/2022, 11:50 AM * Galina Barnett OSA - 06/07/2022 9:47 AM EDT 06/07/2022- Reached out to Alba Iqbal for test claim POM Reason: Insurance Info: Auth Expiring: Pharmacy/Company: Phone number: [place] Location: [facility] Estimated Delivery Date: TBD Appointment Date: Ordered Date: Delivery Address: Attn: [facility] floor IIP POM [address] [place] [address] RX: Eligard Dose: 22.5mg 3 mo Quantity: [...] 4 DX: C61 Prostate Cancer [facility] 06/07/2022, 10:14 AM documented in this encounter Plan of Treatment Upcoming Encounters Date Type Department Care Team (Late st Contact Info) Description 03/21/2023 4:50 PM EST Laboratory Laboratory [place] Neda [place]inal [address] [place] [address] Zoila [address] [place], [place] [address] 03/22/2023 8:50 AM EST Laboratory Laboratory [facility] [place] [address] [place], [place] [phone] Zoila Shen [address] [place], [place] [address] 03/23/2023 9:30 AM EST Telemedicine Hematology/Oncology, [facility] [address] [place] [address] Stan Parra MD [address] [place] [address] Cart, Telemed [facility] Hem Onc Clinic [address] [place] [address] 03/23/2023 10:00 AM EST Immunization/Injection Hematology/Oncology Treatment, [facility] [address] [place] [address] [facility], [facility] Hem Onc [address] [place] [address] 04/16/2023 9:30 AM EST Pharmacy Pharmacy Hematology Oncology [facility] [address] [place] [address] [facility] Hem/Onc [address] [place] [address] 05/03/2023 1:30 PM EST Office Visit Radiation Oncology, [facility] [address] [place] [address] Crescencio Obrien MD [address] [place] [address] 05/31/2023 9:40 AM EDT Office Visit Family Practice [place] [address] [place] [address] Kaz Rivas III, MD [address] [facility] [place] [address] Scheduled Procedures Name Priority Associated Diagnoses Date/Ti [...] the patient have Health Care Power of Crystalizer Tender? Yes, not currently available Care Teams Manufacturing Maintenance Technician Relationship Specialty Start Date End Date Kaz Rivas III, MD 200 [facility] [place] [address] PCP - General 10/25/1995 documented as of this encounter
--- OUTSIDE RECORDS SUMMARY | 2023-05-26 18:10 | External Medical Summary | Summary of Care ---
Author Name Unknown Organization [facility] Address [address] [place] [address] Phone [phone] Care Team Providers Care Paint Roller Assembler Name Role Phone Evelyn FRANZ MD, Kaz Canela Primary Care Provider [phone] [phone] Reason for Visit * Reason Comments Patient Assistance Program Encounter Details Date Type Department Care Team (Late st Contact Info) Description 06/07/2022 Documentation Hematology Oncology [facility] [address] [place] [address] Stan Parra MD [address] [place] [address] Allergies Active Allergy Reactions Criticality Noted Date Comments Levofloxacin Muscle pain 02/07/2018 Oxycodone Nausea/vomiting 02/07/2018 documented as of this encounter (statuses as of 03/22/2023) Medications Medication Sig Dispensed Refills Start Date [...] as of this encounter (statuses as of 03/22/2023) Active Problems Problem Noted Date Diagnosed Date [...] as of this encounter (statuses as of 03/22/2023) Resolved Problems Problem Noted Date Diagnosed Date Resolved Date Supraclavicular lymphadenopathy 02/11/2016 01/02/2018 Screening for prostate cancer 04/15/2003 05/20/2008 Overview: Resolved per Screening Diagnosis Protocol #6 Acute cholecystitis 11/25/2002 05/07/19 19 Diaphragmatic hernia 019 documented as of this encounter (statuses as of 03/22/2023) Immunizations Name Administration Dates Next Due COVID-19 [...] Date: 03/02/2023 Delivery Address: Attn: 6th floor [address] [place] [address] RX: Eligard Dose: 22.5mg 3 mo Quantity: 1 Manufactured Supplied: No Refills remaining: Injection Number for this order: Next Refill: 05/16/2023 Upcoming Appt: 05/30/2023 * Jordan Andrade OSA - 03/14/2023 2:29 PM EST 03/15/2023 - "Caterina, our buying team said they are waiting to hear from a community health program representative from [facility] regarding the ordering issue but we [...] Mcwilliams 03/14/2023 - Per Vida Kelly at [facility] "Piyush Aponte Eligard did not come in today [facility] Vida Mcwilliams is working with the [...] Info: Aetna Medicare Advantage Auth Expirin06/05/2025 Pharmacy/Company: [facility] Phone number: IM injection molding process technician [place] Location: [facility] Estimated Delivery Date: 03/21/2023 - [facility] Appointment Date: 03/16/2023 Ordered Date: 03/02/2023 Delivery Address: Attn: 6th floor [facility] [address] [facility] [address] RX: Eligard Dose: 22.5mg 3 mo Quantity: [...] defer to 03/02/2023 to order Eligard from [facility] * Galina Barnett OSA - 12/06/2022 2:21 PM EDT Krysta Lr, line cook 12/06/2022 13:58 | Received 1 kit of Eligard 12/06/2022 Estimated Delivery Date: Received 12/06/2022-[facility] ABEL Donald [facility] 12/06/2022, 2:21 PM * Mary Jo Gar OSA - 11/27/2022 9:02 AM EDT 11/27/2022 - IM'd [facility] to fill. Medication ordered. Defer to 12/06/2022 for delivery. POM Reason: Insurance mandated Insurance Info: Aetna Medicare Advantage Auth Expirin06/05/2025 Pharmacy/Company: [facility] Phone number: IM injection molding process technician [place] Location: [facility] Estimated Delivery Date: 12/06/2022 - [facility] Appointment Date: 12/11/2022 Ordered Date: 11/27/2022 Delivery Address: Attn: 6th floor [address] [place] [address] RX: Eligard Dose: 22.5mg 3 mo Quantity: [...] 4 DX: C61 Prostate Cancer ABEL Cerrato [facility] 11/27/2022, 1:19 PM * Mary Jo Gar OSA - 11/20/2022 12:01 PM EDT 11/20/2022 - Defer to 01/27/2023 to order refill. ABEL Cerrato [facility] 11/20/2022, 12:02 PM * Mary Jo Gar OSA - 08/31/2022 10:15 AM EDT 09/08/2022 - Received medication per pharmacy staff. Defer 11/20/2022 for refill. 08/31/2022 - IM'd [facility] for refill. Defer to 09/07/2022 for delivery. POM Reason: Insurance mandated Insurance Info: Aetna Medicare Advantage Auth Expirin06/05/2025 Pharmacy/Company: [facility] Phone number: IM injection molding process technician [place] Location:[facility] Estimated Delivery Date: received 09/07/2022 - [facility] Appointment Date: 09/11/2022 Ordered Date:08/31/2022 Delivery Address:Attn: 6th floor IIP POM 400 [facility] [place] [address] RX:Eligard Dose:22.5mg 3 mo Quantity:1 Manufactured Supplied:No [...] x 4 DX:C61 Prostate Cancer ABEL Cerrato [facility] 08/31/2022, 10:18 AM * Liza Hoff OSA - 06/15/2022 2:56 PM EDT Estimated Delivery Date: Received 06/15/2022 - [facility] * Mary Jo Gar OSA - 06/14/2022 11:44 AM EDT 06/14/2022 - IM'd [facility] to fill script. Defer to 06/15/2022 for delivery. POM Reason: Insurance mandated Insurance Info: Aetna Medicare Advantage Auth Expirin06/05/2025 Pharmacy/Company: [facility] Phone number: IM injection molding process technician [place] Location: [facility] Estimated Delivery Date: 06/15/2022 - [facility] Appointment Date: 06/16/2022 Ordered Date:06/14/2022 Delivery Address: Attn: 6th floor IIP POM [address] [place] [address] RX: Eligard Dose: 22.5mg 3 mo Quantity: [...] 4 DX: C61 Prostate Cancer ABEL Cerrato [facility] 06/14/2022, 11:50 AM * Gailna Barnett OSA - 06/07/2022 9:47 AM EDT 06/07/2022- Reached out to Alba Iqbal for test claim POM Reason: Insurance Info: Auth Expiring: Pharmacy/Company: Phone number: [place] Location: [facility] Estimated Delivery Date: TBD Appointment Date: Ordered Date: Delivery Address: Attn: 6th floor IIP POM [address] [place] [address] RX: Eligard Dose: 22.5mg 3 mo Quantity: [...] DX: C61 Prostate Cancer ABEL Donald [facility] 06/07/2022, 10:14 AM documented in this encounter Plan of Treatment Upcoming Encounters Date Type Department Care Team (Late st Contact Info) Description 03/23/2023 9:30 AM EST Telemedicine Hematology/Oncology, [facility] [address] [place] [address] Stan Parra MD [address] [place] [address] Cart, Telemed [facility] Hem Onc Clinic [address] [place] [address] 03/23/2023 10:00 AM EST Immunization/Injection Hematology/Oncology Treatment, [facility] [address] [place] [address] [facility], Chair5 Hem Onc [address] [place] [address] 04/16/2023 9:30 AM EST Pharmacy Pharmacy Hematology Oncology [facility] [address] [place] [address] [facility], [facility] Hem/Onc [address] [place] [address] 05/03/2023 1:30 PM EST Office Visit Radiation Oncology, [facility] [address] [place] [address] Crescencio Obrien MD [address] [place] [address] 05/31/2023 9:40 AM EDT Office Visit Family Practice [facility] [address] [place] [address] Kaz Rivas III, MD [address] [place] [address] Scheduled Procedures Name Priority Associated Diagnoses Date/Ti [...] the patient have Health Care Power of Profiling Machine Operator? Yes, not currently available Care Teams Paint Roller Assembler Relationship Specialty Start Date End Date Evelyn III, Kaz Canela MD [address] [facility] [place] [address] PCP - General 10/25/1995 documented as of this encounter
--- OUTSIDE RECORDS SUMMARY | 2023-05-26 18:10 | External Medical Summary | Summary of Care ---
Author Name Unknown Organization [facility] Address [address] [place] [address] Phone [phone] Care Team Providers Care Surgical Garment Fitter Name Role Phone Evelyn FRANZ MD, Kaz Canela Primary Care Provider [phone] Reason for Visit * Reason Comments Outpatient Testing Encounter Details Date Type Department Care Team (Late st Contact Info) Description 03/21/2023 4:50 PM EST Laboratory [facility] [address] [place] [id number] [place], Lab Scenery [address] [place] [address] Malignant neoplasm of prostate (HCC) Allergies Active [...] Description 03/23/2023 9:30 AM EST Telemedicine Hematology/Oncology, [facility] [address] [place] [address] Stan Parra MD [address] [place] [address] Cart, Telemed [facility] Hem Onc Clinic [address] [place] [address] 03/23/2023 10:00 AM EST Immunization/Injection Hematology/Oncology Treatment, [facility] [address] [place] [address] [facility], [facility] Hem Onc [address] [place] [address] 04/16/2023 9:30 AM EST Pharmacy Pharmacy Hematology Oncology [facility] [address] [place] [address] [facility], [facility] Hem/Onc [address] [place] [address] 05/03/2023 1:30 PM EST Office Visit Radiation Oncology, [facility] [address] [place] [address] Crescencio Obrien MD [address] [place] [address] 05/31/2023 9:40 AM EDT Office Visit [facility] [place] [address] [place] [address] Kaz Rivas III, MD [address] [place] [address] Pending Results Name Type Priority Associated Diagnoses Date /Time COMPREHENSIVE METABOLIC PANEL Lab STAT Malignant neoplasm of prostate (HCC) 03/21/2023 4:35 PM EST Scheduled Procedures Name Priority Associated [...] the patient have Health Care Power of Contact Lens Lathe Operator? Yes, not currently available Care Teams Surgical Garment Fitter Relationship Specialty Start Date End Date Kaz Rivas III, MD [address] [place] [address] PCP - General 10/25/1995 documented as of this encounter
--- OUTSIDE RECORDS SUMMARY | 2023-05-26 18:10 | External Medical Summary | Summary of Care ---
Author Name Unknown Organization [facility] Address [address] [place] [address] Phone [phone] Care Team Providers Care Jigsawyer Name Role Phone Evelyn FRANZ MD, Kaz Canela Primary Care Provider [phone] Reason for Visit * Reason Comments Patient Assistance Program Encounter Details Date Type Department Care Team (Late st Contact Info) Description 06/07/2022 Documentation Hematology Oncology [facility] [address] [place] [address] Stan Parra MD [address] [place] [address] Allergies Active Allergy Reactions Criticality [...] refill. Estimated Delivery Date: received 03/21/2023 - [facility] Appointment Date: 03/16/2023 Ordered Date: 03/02/2023 Delivery Address: Attn: 6th [address] [place] [address] RX: Eligard Dose: 22.5mg 3 mo Quantity: 1 Manufactured Supplied: No Refills remaining: Injection Number for this order: Next Refill: 05/16/2023 Upcoming Appt: 05/30/2023 * Jordan Andrade OSA - 03/14/2023 2:29 PM EST 03/15/2023 - "Caterina, our buying team said they are waiting to hear from a policy services representative from [facility] regarding the ordering issue but [...] Mcwilliams 03/14/2023 - Per Vida Kelly at [facility] "Piyush Aponte Eligard did not come in today [facility] Vida Mcwilliams is working with [...] Info: Aetna Medicare Advantage Auth Expirin06/05/2025 Pharmacy/Company: [facility] Phone number: IM maintenance mechanic technician [place] Location: [facility] Estimated Delivery Date: 03/21/2023 - [facility] Appointment Date: 03/16/2023 Ordered Date: 03/02/2023 Delivery Address: Attn: 6th floor [facility]IP POM [address] [facility] [address] RX: Eligard Dose: 22.5mg 3 mo Quantity: [...] defer to 03/02/2023 to order Eligard from [facility] * Galina Barnett OSA - 12/06/2022 2:21 PM EDT Krysta Lr, biofuels technology development manager 12/06/2022 13:58 | Received 1 kit of Eligard 12/06/2022 Estimated Delivery Date: Received 12/06/2022-[facility] ABEL Donald [facility] 12/06/2022, 2:21 PM * Mary Jo Gar OSA - 11/27/2022 9:02 AM EDT 11/27/2022 - IM'd [facility] to fill. Medication ordered. Defer to 12/06/2022 for delivery. POM Reason: Insurance mandated Insurance Info: Aetna Medicare Advantage Auth Expirin06/05/2025 Pharmacy/Company: [facility] Phone number: IM maintenance mechanic technician [place] Location: [facility] Estimated Delivery Date: 12/06/2022 - [facility] Appointment Date: 12/11/2022 Ordered Date: 11/27/2022 Delivery Address: Attn: 6th floor IIP POM [address] [place] [address] RX: Eligard Dose: 22.5mg 3 mo Quantity: [...] 4 DX: C61 Prostate Cancer ABEL Cerrato [facility] 11/27/2022, 1:19 PM * Mary Jo Gar OSA - 11/20/2022 12:01 PM EDT 11/20/2022 - Defer to 01/27/2023 to order refill. ABEL Cerrato [facility] 11/20/2022, 12:02 PM * Mary Jo Gar OSA - 08/31/2022 10:15 AM EDT 09/08/2022 - Received medication per pharmacy staff. Defer 11/20/2022 for refill. 08/31/2022 - IM'd [facility] for refill. Defer to 09/07/2022 for delivery. POM Reason: Insurance mandated Insurance Info: Aetna Medicare Advantage Auth Expirin06/05/2025 Pharmacy/Company: [facility] Phone number: IM maintenance mechanic technician [place] Location:[facility] Estimated Delivery Date: received 09/07/2022 - [facility] Appointment Date: 09/11/2022 Ordered Date:08/31/2022 Delivery Address:Attn: 6th floor IIP POM 400 [facility] [place] [address] RX:Eligard Dose:22.5mg 3 mo Quantity:1 Manufactured Supplied:No [...] x 4 DX:C61 Prostate Cancer ABEL Cerrato [facility] 08/31/2022, 10:18 AM * Liza Hoff OSA - 06/15/2022 2:56 PM EDT Estimated Delivery Date: Received 06/15/2022 - [facility] * Mary Jo Gar OSA - 06/14/2022 11:44 AM EDT 06/14/2022 - IM'd [facility] to fill script. Defer to 06/15/2022 for delivery. POM Reason: Insurance mandated Insurance Info: Aetna Medicare Advantage Auth Expirin06/05/2025 Pharmacy/Company: [facility] Phone number: IM maintenance mechanic technician [place] Location: [facility] Estimated Delivery Date: 06/15/2022 - [facility] Appointment Date: 06/16/2022 Ordered Date:06/14/2022 Delivery Address: Attn: 6th floor IIP POM [address] [place] [address] RX: Eligard Dose: 22.5mg 3 mo Quantity: [...] 4 DX: C61 Prostate Cancer ABEL Cerrato [facility] 06/14/2022, 11:50 AM * Galina Barnett OSA - 06/07/2022 9:47 AM EDT 06/07/2022- Reached out to Alba Iqbal for test claim POM Reason: Insurance Info: Auth Expiring: Pharmacy/Company: Phone number: [place] Location: [facility] Estimated Delivery Date: TBD Appointment Date: Ordered Date: Delivery Address: Attn: [facility] IIP POM [address] [place] [address] RX: Eligard Dose: 22.5mg 3 mo Quantity: [...] 4 DX: C61 Prostate Cancer ABEL Donald [facility] 06/07/2022, 10:14 AM documented in this encounter Plan of Treatment Upcoming Encounters Date Type Department Care Team (Late st Contact Info) Description 03/21/2023 4:50 PM EST Laboratory Laboratory [facility] [address] [place] [address] Zoila [address] [place], [place] [address] 03/22/2023 8:50 AM EST Laboratory Laboratory [facility] Hermelinda [place] [address] [place], [place] [address] Zoila Shen Sc[address] [place], [place] [address] 03/23/2023 9:30 AM EST Telemedicine Hematology/Oncology, [facility] [address] [place] [address] Stan Parra MD [address] [place] [address] Cart, Telemed [facility] Hem Onc Clinic [address] [place] [address] 03/23/2023 10:00 AM EST Immunization/Injection Hematology/Oncology Treatment, [facility] [address] [place] [address] [facility], [facility] Hem Onc [address] [place] [address] 04/16/2023 9:30 AM EST Pharmacy Pharmacy Hematology Oncology [facility] [address] [place] [address] [place], [facility] Hem/Onc [address] [place] [address] 05/03/2023 1:30 PM EST Office Visit Radiation Oncology, [facility] [address] [place] [address] Crescencio Obrien MD [address] [place] [address] 05/31/2023 9:40 AM EDT Office Visit Family Practice [facility] [address] [place] [address] Kaz Rivas III, MD [address] [facility] [place] [address] Scheduled Procedures Name Priority Associated Diagnoses Date/Ti [...] the patient have Health Care Power of Planning Rn? Yes, not currently available Care Teams Jigsawyer Relationship Specialty Start Date End Date Kaz Rivas III, MD [address] [facility] [place] [address] PCP - General 10/25/1995 documented as of this encounter
--- OUTSIDE RECORDS SUMMARY | 2023-05-26 18:10 | External Medical Summary | Summary of Care ---
Author Name Unknown Organization [facility] Address [address] [place] [address] Phone [phone] Care Team Providers Care Toll Repairer Central Office Name Role Phone Evelyn FRANZ MD, Kaz Canela Primary Care Provider [phone] Encounter Details Date Type Department Care Team (Late st Contact Info) Description 03/23/2023 Orders Only Hematology/Oncology Treatment, [address] [id number] Stan Parra MD [address] [place] [address] Allergies Active Allergy Reactions Criticality [...] State Neda Shen [address] [place] [phone] Hermelinda Lab Scenery [address] [place] [address] 04/16/2023 9:30 AM EST Pharmacy Pharmacy Hematology Oncology [facility] [address] [place] [address] [facility], [facility] Hem/Onc [address] [place] [address] 04/23/2023 4:30 PM EST Laboratory Laboratory [facility] [address] [place] [address] Hermelinda Lab Scenery [address] [place] [address] [address] 05/03/2023 1:30 PM EST Office Visit Radiation Oncology, [facility] [address] [place] [address] Crescencio Obrien MD [address] [place] [address] 05/22/2023 4:30 PM EDT Laboratory Laboratory [facility] [address] [place] [phone] Herm[facility]inda [facility] Scenery [address] [place] [address] 05/31/2023 9:40 AM EDT Office Visit Family Practice [place] [facility] [place] [address] [place] [address] [place] IIIKaz MD [address] [facility] [place] [address] Scheduled Procedures Name Priority Associated Diagnoses Date/Ti [...] the patient have Health Care Power of Bus Starter? Yes, not currently available Care Teams Toll Repairer Central Office Relationship Specialty Start Date End Date Kaz Rivas III, MD [address] [place] [address] PCP - General 10/25/1995 documented as of this encounter
--- OUTSIDE RECORDS SUMMARY | 2023-05-26 18:10 | External Medical Summary ---
Author Name Unknown Address Unknown Organization K01:LABORATORY [facility] - 100 [facility] [address] Laboratory Report Ordering Provider Test Date Status JESÚS BESS 03/21/2023 16:35:06 Final Every two weeks for three mo nths, then every month (patients with moderate hep impairment every week for one month, every two weeks for two months, then every month) Observation Date Value Abnormality Reference (Units ) Status BUN 03/21/2023 16:35:06 18 6-20 (mg/dL) Final Creatinine 03/21/2023 16:35:06 1.3 Above high normal 0.6-1.2 (mg/dL) Final Glomerular filtration rate/1.73 sq M.predicted [Volume Rate/Area] in Serum, Plasma or Blood by Creatinine-based formula (CKD-EPI) 03/21/2023 16:35:06 61 >=60 (mL/min) Final eGFR is calculated based on the CKD-EPI 2020 equation SODIUM 03/21/2023 16:35:06 142 135-146 (m mol/L) Final Potassium 03/21/2023 16:35:06 4.2 3.5-5.1 (m mol/L) Final Cl 03/21/2023 16:35:06 107 98-107 (mm ol/L) Final CO2 03/21/2023 16:35:06 25 22-32 (mmo l/L) Final Anion gap 03/21/2023 16:35:06 10 7-15 (mmol /L) Final Glucose 03/21/2023 16:35:06 94 70-120 (mg /dL) Final Albumin 03/21/2023 16:35:06 4.3 3.8-5.0 (g /dL) Final AST (Aspartate aminotransferase) 03/21/2023 16:35:06 24 10-50 (U/L) Final Alk Phos 03/21/2023 16:35:06 79 35-130 (U/ L) Final Bilirubin, Total 03/21/2023 16:35:06 0.3 <=1 .2 (mg/dL) Final Calcium 03/21/2023 16:35:06 9.2 8.4-10.2 ( mg/dL) Final Protein 03/21/2023 16:35:06 6.7 6.0-8.3 (g /dL) Final ALT (Alanine aminotransferase) 03/21/2023 16:35:06 15 10-50 (U/L) Final Performing Location LABORATORY [facility] - [address] [place] [facility] [address]
--- OUTSIDE RECORDS SUMMARY | 2023-05-26 18:10 | External Medical Summary | Summary of Care ---
Author Name Unknown Organization [facility] Address [address] [place] [address] Phone [phone] Care Team Providers Care Hr Clerk Name Role Phone Evelyn FRANZ MD, Kaz Canela Primary Care Provider [phone] Reason for Visit * Reason Onset Date Comments Order Request 03/21/2023 Dr. Parra Encounter Details Date Type Department Care Team (Late st Contact Info) Description 03/21/2023 Telephone Hematology/Oncology, [address] [phone] Services, Scheduling [address] [place] [address] Order Request (Dr. Parra ) Allergies Active Allergy Reactions Criticality Noted Date [...] encounter Miscellaneous Notes * Telephone Encounter - Jennifer Rocha LPN - 03/22/2023 8:22 AM EST He does need a PSA, added to yesterdays labs * Telephone Encounter - Indy Sanchez OSA - 03/21/2023 4:51 PM EST We received a call from Piyush. He had labs drawn today at [facility]. We did not have any lab orders for a PSA so Piyush was curious if Dr. Parra wanted that drawn as well. The lab nurse at the facility told Piyush we could process the PSA from what was drawn today. We just need an order to process it. Not sure when the lab will be picked up for processing but if you could ask Dr. Parra if he would like the PSA processed as well and try to notify the labs in time. If not Piyush can have it drawn at another time. Please give Piyush a call back at your earliest convenience to advise him if Dr. Parra would like the PSA and if we were able to notify the lab in time. He can be reached at [phone]. Thank you! documented in this encounter Plan of Treatment Upcoming Encounters Date Type Department Care Team (Late st Contact Info) Description 03/23/2023 9:30 AM EST Telemedicine Hematology/Oncology, [facility] [address] [place] [address] Stan Parra MD [address] [place] [address] Dawna Baered [facility] Hem Onc Clinic [address] [place] [address] 03/23/2023 10:00 AM EST Immunization/Injection Hematology/Oncology Treatment, [facility] [address] [place] [address] Gl, Chair5 Hem Onc [address] [place] [address] 04/16/2023 9:30 AM EST Pharmacy Pharmacy Hematology Oncology [address] [address] [facility], [facility] Hem/Onc [address] [place] [address] 05/03/2023 1:30 PM EST Office Visit Radiation Oncology, [facility] [address] [place] [address] Crescencio Obrien MD [address] [place] [address] 05/31/2023 9:40 AM EDT Office Visit Family Practice [facility] [address] [place] [address] Kaz Rivas III, MD [address] [place] [address] Pending Results Name Type Priority Associated Diagnoses Date /Time PSA Lab STAT Malignant neoplasm of prostate (HCC) 03/21/2023 4:35 PM EST Scheduled Orders Name Type Priority Associated Diagnoses Orde r Schedule PSA Lab STAT Malignant neoplasm of prostate (HCC) Expected: 03/22/2023 (Approximate), Expires: 03/22/2024 Scheduled Procedures Name Priority Associated Diagnoses Date/Ti [...] the patient have Health Care Power of Certified Medical Asst? Yes, not currently available Care Teams Hr Clerk Relationship Specialty Start Date End Date Evelyn FRANZ, Kaz Canela MD [address] [place] [address] PCP - General 10/25/1995 documented as of this encounter
--- OUTSIDE RECORDS SUMMARY | 2023-05-26 18:10 | External Medical Summary | Summary of Care ---
Author Name Unknown Organization [facility] Address [address] [place] [address] Phone [phone] Care Team Providers Care Glass Driller Name Role Phone Evelyn FRANZ MD, Kaz Canela Primary Care Provider [phone] Reason for Visit * Reason Comments Follow Up Encounter Details Date Type Department Care Team (Late st Contact Info) Description 03/23/2023 9:30 AM EST Telemedicine Hematology/Oncology, [address] [phone] Stan Parra MD [address] [place] [address] [facility] [address] [place] [address] Malignant neoplasm of prostate (HCC)*; [...] two unique identifiers. Patient (or authorized legal scheduling representative) was then informed that this was [...] that I have reviewed their record in [facility] and presented the opportunity for them to ask any questions regarding the visit today. The patient agreed to participate. Patient's Name: Piyush Aponte MR #: [id number] : 1950 Today's date: 03/23/2023 PCP: Kaz Rivas III, MD Referring provider: Bradley Uriarte Jr., MD Reason for referral: Prostate cancer (HCC) Hematology/Oncology diagnosis: Prostate AWILDA, with some cores showing intraductal histology, Very high risk group, Stage IIIC, [id number], Grade group 5: Cantonment score 4+5=9, Cores W/ Carcinoma(02/23), PSA = [...] adenocarcinoma. Patient lives [place] away from [facility]. Patient recently fell from a tree, and had compression fracture. He is currently on a brace, and neck collar. In 2018, patient complained of difficulty urination, and weak urinary stream. His PSA on March 07, 2018 was 20.83. 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 He [...] performed by Umair Cook MD at [facility] COLONOSCOPY, DIAGNOSTIC (RECTUM) 08/17/2021 benign polyp, diverticulosis, repeat 5 yrs / COLONOSCOPY FLEXIBLE PROXIMAL DIAGNOSTIC performed by Chavez Abbasi MD at [facility] COLONOSCOPY, GI REFERRAL OP 03/02/2006 hyperplastic polyps--repeat 5 years COLORECTAL CANCER SCREEN;W/FLE 06/05/2001 70 cms wnl DENTAL SURGERY PROCEDURE NEC Dental Surgery Procedure EGD, FLEXIBLE, DIAGNOSTIC 12/22/2011 UPPER GI ENDOSCOPY DIAGNOSTIC performed by Berkley Rosen DO at [facility] bile reflux and inlet patch INFORMATION 1982 Herniated disc repair KNEE ARTHROSCOPY/MENISCUS REPAIR Left 2014 KNEE ARTHROSCOPY/SURGERY Left 09/23/2020 shave menniscus chondroplasty REMOVE GALLBLADDER 11/17/2002 Cholecystectomy - open [facility] Dr. Gold REMOVE LUMBAR SPINE LAMINA, 3+ SEGS 1981 Lumbar Disk Excision REMOVE TONSILS & ADENOIDS, UNDER 12 Tonsillectomy/Adenoids,<12 Y/O SHOULDER ARTHROSCOPY/DEBRIDEMENT Left 2017 STRESS TREADMILL 2000 wnl TRANSPERINEAL BX OF PROSTATE, STEREOTACTIC N/A 04/30/2018 TRANSPERINEAL BX OF PROSTATE, STEREOTACTIC performed by Vy Tyler MD at [facility] UPPER ENDOSCOPY GI REFERRAL OP 03/02/2006 [...] Andrade OSA Progress Notes Signed Ricardo Gordon [facility] Progress Notes Signed Vida Kelly CPhT [...] intraductal histology, Very high risk group, StageIIIC, [id number], Grade group 5: Cantonment score 4+5=9, Cores W/ Carcinoma(02/23), PSA = [...] reports that he is traveling tomorrow to [place] and will stay there for 7 to 10 days and he will not be able to reschedule his travel. I instructed himto be very well-hydrated during his travel, takes Zofran as needed, and if he continued to have nausea, and oral intake, or if he develops diarrhea, to go to the emergency room in [place]. Patient understood and will follow. Will repeat CMP in 10 days (after he comes back from [place]). Package insert of Zytiga, and Eligard reviewed, [...] By: Hem/Onc --- Protocol: SCP - HYDRATION [id number] Check-out note: OK for Eilgard Shot today, and q.3 months IV fluids with Zofran today CMP in 10 days CBC with diff, CMP Q monthly Return to clinic with Fidel in 3 months with CBC with diff, CMP, PSA This chart was completed in part utilizing [employer] Speech Voice Recognition Software. Grammatical errors, random [...] State [place] [address] [place] [place] [address] [facility] [place] [address] [address] 04/16/2023 9:30 AM EST Pharmacy Pharmacy Hematology Oncology [facility] [address] [place] [address] [facility], [facility] Hem/Onc [address] [place] [address] 04/23/2023 4:30 PM EST Laboratory Laboratory [place] [address] [place] [place] [phone] [facility] [address] [place] [address] 05/03/2023 1:30 PM EST Office Visit Radiation Oncology, [facility] [address] [place] [address] Crescencio Obrien MD [address] [place] [address] 05/22/2023 4:30 PM EDT Laboratory Laboratory [place] [address] [place] [place] [phone] [facility] [address] [place] [address] 05/31/2023 9:40 AM EDT Office Visit Family Practice [facility] [place] [address] [place] [address] Evelyn III, Kaz Canela MD [address] [place] [address] 06/20/2023 4:30 PM EDT Laboratory Laboratory [facility] [place] [address] [place] [phone] [facility] 200 [facility] [place] [address] Scheduled Procedures Name Priority Associated Diagnoses Date/Ti [...] the patient have Health Care Power of Swimming Pool Cleaner? Yes, not currently available Care Teams Glass Driller Relationship Specialty Start Date End Date Kaz Rivas III, MD [address] [place] [address] PCP - General 10/25/1995 documented as of this encounter"
--- OUTSIDE RECORDS SUMMARY | 2023-05-26 18:10 | External Medical Summary | Summary of Care ---
Author Name Unknown Organization [facility] Address [address] [place] [address] Phone [phone] Care Team Providers Care Balance Weigher Name Role Phone Evelyn FRANZ MD, Kaz Canela Primary Care Provider [phone] Reason for Visit * Reason Comments Follow Up Encounter Details Date Type Department Care Team (Late st Contact Info) Description 03/23/2023 9:30 AM EST Telemedicine Hematology/Oncology, [address] [phone] Stan Parra MD [address] [place] [address] [facility] [address] [place] [address] Malignant neoplasm of prostate (HCC)*; [...] two unique identifiers. Patient (or authorized legal sales account representative) was then informed that this was [...] that I have reviewed their record in [facility] and presented the opportunity for them to ask any questions regarding the visit today. The patient agreed to participate. Patient's Name: Piyush Aponte MR #: [id number] : 1950 Today's date: 03/23/2023 PCP: Kaz Rivas III, MD Referring provider: Bradley Uriarte Jr., MD Reason for referral: Prostate cancer (HCC) Hematology/Oncology diagnosis: Prostate AWILDA, with some cores showing intraductal histology, Very high risk group, Stage IIIC, [id number], Grade group 5: Magnolia score 4+5=9, Cores W/ Carcinoma(02/23), PSA = [...] adenocarcinoma. Patient lives [place] away from [facility]. Patient recently fell from a tree, and had compression fracture. He is currently on a brace, and neck collar. In 2018, patient complained of difficulty urination, and weak urinary stream. His PSA on March 07, 2018 was 20.83. 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 He [...] performed by Umair Cook MD at ENDOSCOPY [facility] COLONOSCOPY, DIAGNOSTIC (RECTUM) 08/17/2021 benign polyp, diverticulosis, repeat 5 yrs / COLONOSCOPY FLEXIBLE PROXIMAL DIAGNOSTIC performed by Chavez Abbasi MD at ENDOSCOPY [facility] COLONOSCOPY, GI REFERRAL OP 03/02/2006 hyperplastic polyps--repeat 5 years COLORECTAL CANCER SCREEN;W/FLE 06/05/2001 70 cms wnl DENTAL SURGERY PROCEDURE NEC Dental Surgery Procedure EGD, FLEXIBLE, DIAGNOSTIC 12/22/2011 UPPER GI ENDOSCOPY DIAGNOSTIC performed by Berkley Rosen DO at [facility] [place] bile reflux and inlet patch INFORMATION 1982 Herniated disc repair KNEE ARTHROSCOPY/MENISCUS REPAIR Left 2014 KNEE ARTHROSCOPY/SURGERY Left 09/23/2020 shave menniscus chondroplasty REMOVE GALLBLADDER 11/17/2002 Cholecystectomy - open [facility] Dr. Gold REMOVE LUMBAR SPINE LAMINA, 3+ SEGS 1981 Lumbar Disk Excision REMOVE TONSILS & ADENOIDS, UNDER 12 Tonsillectomy/Adenoids,<12 Y/O SHOULDER ARTHROSCOPY/DEBRIDEMENT Left 2017 STRESS TREADMILL 2000 wnl TRANSPERINEAL BX OF PROSTATE, STEREOTACTIC N/A 04/30/2018 TRANSPERINEAL BX OF PROSTATE, STEREOTACTIC performed by Vy Tyler MD at [facility]PP[facility] ENDOSCOPY GI REFERRAL OP 03/02/2006 acid [...] OSA Progress Notes Signed Ricardo Gordon [facility] Progress Notes Signed Vida Kelly CPhT Telephone [...] intraductal histology, Very high risk group, StageIIIC, [id number], Grade group 5: Magnolia score 4+5=9, Cores W/ Carcinoma(02/23), PSA = [...] reports that he is traveling tomorrow to [place] and will stay there for 7 to 10 days and he will not be able to reschedule his travel. I instructed himto be very well-hydrated during his travel, takes Zofran as needed, and if he continued to have nausea, and oral intake, or if he develops diarrhea, to go to the emergency room in [place]. Patient understood and will follow. Will repeat CMP in 10 days (after he comes back from [place]). Package insert of Zytiga, and Eligard reviewed, [...] By: Hem/Onc --- Protocol: SCP - HYDRATION [id number] Check-out note: OK for Eilgard Shot today, and q.3 months IV fluids with Zofran today CMP in 10 days CBC with diff, CMP Q monthly Return to clinic with Fidel in 3 months with CBC with diff, CMP, PSA This chart was completed in part utilizing [employer] Speech Voice Recognition Software. Grammatical errors, random [...] [place] [address] [place] [address] [facility] [address] [place] [address] [address] 04/16/2023 9:30 AM EST Pharmacy Pharmacy Hematology Oncology [facility] [address] [place] [address] [facility], [facility] Hem/Onc [address] [place] [address] 04/23/2023 4:30 PM EST Laboratory Laboratory [place] [address] [place] [place] [address] [facility] [address] [place] [address] 05/03/2023 1:30 PM EST Office Visit Radiation Oncology, [facility] [address] [facility] [place], [place] [address] Crescencio Obrien MD [address] [place] [address] 05/22/2023 4:30 PM EDT Laboratory Laboratory [place] [address] [place] [phone] [facility] [address] [place] [address] 05/31/2023 9:40 AM EDT Office Visit Family Practice [facility] [place] [address] [place] [address] Kaz Rivas III, MD [address] [place] [address] 06/20/2023 4:30 PM EDT Laboratory Laboratory [facility] [place] [address] [place] [phone] [facility] 200 [facility] [place] [address] 06/22/2023 2:30 PM EDT Telemedicine Hematology/Oncology, [facility] [address] [place] [address] Stan Parra MD [address] [place], [place] [address] Cart, Telemed [facility] Hem Onc Clinic [address] [place], [place] [phone] Scheduled Procedures Name Priority Associated Diagnoses Date/Ti [...] the patient have Health Care Power of Reimbursement Director? Yes, not currently available Care Teams Balance Weigher Relationship Specialty Start Date End Date Kaz Rivas III, MD [address] [place] [address] PCP - General 10/25/1995 documented as of this encounter"
--- OUTSIDE RECORDS SUMMARY | 2023-05-26 18:11 | External Medical Summary ---
Author Name Unknown Address Unknown Organization K01:LABORATORY [facility] - [address] [place] [address] Laboratory Report Ordering Provider Test Date Status DAVE HALEY 02/10/2023 10:56:26 Final Observation Date Value Abnormality Reference (Units ) Status MYCODE SPECIMEN-SST 02/10/2023 10:56:26 Freezing of extracted DNA, whole blood and/or serum. Final Performing Location LABORATORY [facility] - [address] [place] [address]
--- OUTSIDE RECORDS SUMMARY | 2023-05-26 18:11 | External Medical Summary | Summary of Care ---
Author Name Unknown Organization [facility] Address [address] [place] [address] Phone [phone] Care Team Providers Care Cobbler Mckay Name Role Phone Evelyn FRANZ MD, Kaz Canela Primary Care Provider [phone] Reason for Visit * Reason Comments Patient Assistance Program Encounter Details Date Type Department Care Team (Late st Contact Info) Description 06/07/2022 Documentation Hematology Oncology [facility] [address] [place] [address] Stan Parra MD [address] [place] [address] Allergies Active Allergy Reactions Criticality Noted Date Comments Levofloxacin Muscle pain 02/07/2018 Oxycodone Nausea/vomiting 02/07/2018 documented as of this encounter (statuses as of 03/02/2023) Medications Medication Sig Dispensed Refills Start Date [...] as of this encounter (statuses as of 03/02/2023) Active Problems Problem Noted Date Diagnosed Date [...] as of this encounter (statuses as of 03/02/2023) Resolved Problems Problem Noted Date Diagnosed Date Resolved Date Supraclavicular lymphadenopathy 02/11/2016 01/02/2018 Screening for prostate cancer 04/15/2003 05/20/2008 Overview: Resolved per Screening Diagnosis Protocol #6 Acute cholecystitis 11/25/2002 05/07/19 19 Diaphragmatic hernia 019 documented as of this encounter (statuses as of 03/02/2023) Immunizations Name Administration Dates Next Due COVID-19 [...] Progress Notes * Jordan Andrade OSA - 03/02/2023 8:00 AM EST POM Reason: Insurance mandated Insurance Info: [employer] Medicare Advantage Auth Expirin06/05/2025 Pharmacy/Company: [facility] Phone number: IM hvac controls technician [place] Location: [facility] Estimated Delivery Date: IM sent to [facility] Appointment Date: 03/16/2023 Ordered Date: 03/02/2023 Delivery Address: Attn: 6th floor IIP POM [address] [place] [place] [address] RX: Eligard Dose: 22.5mg 3 mo Quantity: [...] defer to 03/02/2023 to order Eligard from [facility] * Galina Barnett OSA - 12/06/2022 2:21 PM EDT Krysta Lr, [employer] compliance internship 12/06/2022 13:58 | Received 1 kit of Eligard 12/06/2022 Estimated Delivery Date: Received 12/06/2022-[facility] Med [facility] 12/06/2022, 2:21 PM * Mary Jo Gar OSA - 11/27/2022 9:02 AM EDT 11/27/2022 - IM'd [facility] to fill. Medication ordered. Defer to 12/06/2022 for delivery. POM Reason: Insurance mandated Insurance Info: [employer] Medicare Advantage Auth Expirin06/05/2025 Pharmacy/Company: [facility] Phone number: IM hvac controls technician [place] Location: [facility] Estimated Delivery Date: 12/06/2022 - [facility] Appointment Date: 12/11/2022 Ordered Date: 11/27/2022 Delivery Address: Attn: 6th floor IIP POM [address] [place] [address] RX: Eligard Dose: 22.5mg 3 mo Quantity: [...] 4 DX: C61 Prostate Cancer ABEL Cerrato [facility] 11/27/2022, 1:19 PM * Mary Jo Gar OSA - 11/20/2022 12:01 PM EDT 11/20/2022 - Defer to 01/27/2023 to order refill. ABEL Cerrato [facility] 11/20/2022, 12:02 PM * Mary Jo Gar OSA - 08/31/2022 10:15 AM EDT 09/08/2022 - Received medication per pharmacy staff. Defer 11/20/2022 for refill. 08/31/2022 - IM'd [facility] for refill. Defer to 09/07/2022 for delivery. POM Reason: Insurance mandated Insurance Info: [employer] Medicare Advantage Auth Expirin06/05/2025 Pharmacy/Company: [facility] Phone number: MARS hvac controls technician [place] Location:[facility] Estimated Delivery Date: received 09/07/2022 - [facility] Appointment Date: 09/11/2022 Ordered Date:08/31/2022 Delivery Address:Attn: 6th floor IIP POM [address] [place] [address] RX:Eligard Dose:22.5mg 3 mo Quantity:1 Manufactured Supplied:No [...] x 4 DX:C61 Prostate Cancer ABEL Cerrato [facility] 08/31/2022, 10:18 AM * Liza Hoff OSA - 06/15/2022 2:56 PM EDT Estimated Delivery Date: Received 06/15/2022 - [facility] * Mary Jo Gar OSA - 06/14/2022 11:44 AM EDT 06/14/2022 - IM'd [facility] to fill script. Defer to 06/15/2022 for delivery. POM Reason: Insurance mandated Insurance Info: [employer]na Medicare Advantage Auth Expirin06/05/2025 Pharmacy/Company: [facility] Phone number: IM hvac controls technician [place] Location: [facility] Estimated Delivery Date: 06/15/2022 - [facility] Appointment Date: 06/16/2022 Ordered Date:06/14/2022 Delivery Address: Attn: 6th floor IIP POM [address] [place] [address] RX: Eligard Dose: 22.5mg 3 mo Quantity: [...] 4 DX: C61 Prostate Cancer ABEL Cerrato [facility] 06/14/2022, 11:50 AM * Galina Barnett OSA - 06/07/2022 9:47 AM EDT 06/07/2022- Reached out to Alba Iqbal for test claim POM Reason: Insurance Info: Auth Expiring: Pharmacy/Company: Phone number: [place] Location: [facility] Estimated Delivery Date: TBD Appointment Date: Ordered Date: Delivery Address: Attn: 6th floor IIP POM [address] [place] [address] RX: Eligard Dose: 22.5mg 3 mo Quantity: [...] 4 DX: C61 Prostate Cancer ABEL Donald [facility] 06/07/2022, 10:14 AM documented in this encounter Plan of Treatment Upcoming Encounters Date Type Department Care Team (Late st Contact Info) Description 03/16/2023 9:30 AM EST Laboratory Laboratory, [address] [address] [facility] Lab [address] [place] [address] 03/16/2023 10:30 AM EST Telemedicine Hematology/Oncology, [address] [address] Stan Parra MD [address] [place] [address] Cart, Telemed [facility] Hem Onc Clinic [address] [place] [address] 03/16/2023 11:00 AM EST Immunization/Injection Hematology/Oncology Treatment, [address] [address] [facility], [address] Hem Onc [address] [place] [address] 04/16/2023 9:30 AM EST Pharmacy Pharmacy Hematology Oncology [place] [address] [place] [address] [facility], [facility] Hem/Onc [address] [place] [address] 05/03/2023 1:30 PM EST Office Visit Radiation Oncology, [facility] [address] [place] [address] Crescencio Obrien MD [address] [place] [address] 05/31/2023 9:40 AM EDT [facility] [address] [facility] [place] [address] Kaz Rivas III, MD 200 [facility] [place] [address] Scheduled Procedures Name Priority Associated Diagnoses Date/Ti [...] the patient have Health Care Power of Horse Groomer? Yes, not currently available Care Teams Cobbler Mckay Relationship Specialty Start Date End Date Kaz Rivas III, MD [address] [place] [address] PCP - General 10/25/1995 documented as of this encounter"
--- OUTSIDE RECORDS SUMMARY | 2023-05-26 18:11 | External Medical Summary | Summary of Care ---
Author Name Unknown Organization [facility] Address [address] [place] [address] Phone [phone] Care Team Providers Care Junior Database Administrator Name Role Phone Evelyn FRANZ MD, Kaz Canela Primary Care Provider [phone] Reason for Visit * Reason Comments Patient Assistance Program Encounter Details Date Type Department Care Team (Late st Contact Info) Description 06/07/2022 Documentation Hematology Oncology [facility] [address] [place] [address] Stan Parra MD [address] [place] [address] Allergies Active Allergy Reactions Criticality Noted Date Comments Levofloxacin Muscle pain 02/07/2018 Oxycodone Nausea/vomiting 02/07/2018 documented as of this encounter (statuses as of 03/14/2023) Medications Medication Sig Dispensed Refills Start Date [...] as of this encounter (statuses as of 03/14/2023) Active Problems Problem Noted Date Diagnosed Date [...] as of this encounter (statuses as of 03/14/2023) Resolved Problems Problem Noted Date Diagnosed Date Resolved Date Supraclavicular lymphadenopathy 02/11/2016 01/02/2018 Screening for prostate cancer 04/15/2003 05/20/2008 Overview: Resolved per Screening Diagnosis Protocol #6 Acute cholecystitis 11/25/2002 05/07/19 19 Diaphragmatic hernia 019 documented as of this encounter (statuses as of 03/14/2023) Immunizations Name Administration Dates Next Due COVID-19 [...] Andrade OSA - 03/14/2023 2:29 PM EST 03/14/2023 - Per Vida Kelly at [facility] "Piyush Aponte Eligard did not come in today [facility] Vida Mcwilliams is working with the buying team to see if it'll come tomorrow." Message to Vida Mcwilliams to keep updated on progress, appt has been moved from 03/16 to 03/23. Push out 1 day to follow up on drug status. * Jordan Andrade OSA - 03/02/2023 8:00 AM EST POM Reason: Insurance mandated Insurance Info: Aetna Medicare Advantage Auth Expirin06/05/2025 Pharmacy/Company: [facility] Phone number: IM vibration technician [place] Location: [facility] Estimated Delivery Date: 03/15/2023 - [facility] Appointment Date: 03/16/2023 Ordered Date: 03/02/2023 Delivery Address: Attn: 6th floor IIP [facility] [address] [facility] [place] [address] RX: Eligard Dose: 22.5mg 3 mo Quantity: [...] defer to 03/02/2023 to order Eligard from [facility] * Galina Barnett OSA - 12/06/2022 2:21 PM EDT Krysta Lr, record press tender 12/06/2022 13:58 | Received 1 kit of Eligard 12/06/2022 Estimated Delivery Date: Received 12/06/2022-P ABEL Donald [facility] 12/06/2022, 2:21 PM * Mary Jo Gar OSA - 11/27/2022 9:02 AM EDT 11/27/2022 - IM'd [facility] to fill. Medication ordered. Defer to 12/06/2022 for delivery. POM Reason: Insurance mandated Insurance Info: Aetna Medicare Advantage Auth Expirin06/05/2025 Pharmacy/Company: [facility] Phone number: IM vibration technician [place] Location: [facility] Estimated Delivery Date: 12/06/2022 - [facility] Appointment Date: 12/11/2022 Ordered Date: 11/27/2022 Delivery Address: Attn: 6th floor IIP [facility] [address] [facility] [place] [address] RX: Eligard Dose: 22.5mg 3 mo Quantity: [...] 4 DX: C61 Prostate Cancer ABEL Cerrato [facility] 11/27/2022, 1:19 PM * Mary Jo Gar OSA - 11/20/2022 12:01 PM EDT 11/20/2022 - Defer to 01/27/2023 to order refill. ABEL Cerrato [facility] 11/20/2022, 12:02 PM * Mary Jo Gar OSA - 08/31/2022 10:15 AM EDT 09/08/2022 - Received medication per pharmacy staff. Defer 11/20/2022 for refill. 08/31/2022 - IM'd [facility] for refill. Defer to 09/07/2022 for delivery. POM Reason: Insurance mandated Insurance Info: Aetna Medicare Advantage Auth Expirin06/05/2025 Pharmacy/Company: P Phone number: IM vibration technician [place] Location:[facility] Estimated Delivery Date: received 09/07/2022 - [facility] Appointment Date: 09/11/2022 Ordered Date:08/31/2022 Delivery Address:Attn: 6th floor IIP [facility] [address] [place] [address] RX:Eligard Dose:22.5mg 3 mo Quantity:1 Manufactured Supplied:No [...] x 4 DX:C61 Prostate Cancer ABEL Cerrato [facility] 08/31/2022, 10:18 AM * Liza Hoff OSA - 06/15/2022 2:56 PM EDT Estimated Delivery Date: Received 06/15/2022 - [facility] * Mary Jo Gar OSA - 06/14/2022 11:44 AM EDT 06/14/2022 - IM'd [facility] to fill script. Defer to 06/15/2022 for delivery. POM Reason: Insurance mandated Insurance Info: Aetna Medicare Advantage Auth Expirin06/05/2025 Pharmacy/Company: P Phone number: IM vibration technician [place] Location: [facility] Estimated Delivery Date: 06/15/2022 - [facility] Appointment Date: 06/16/2022 Ordered Date:06/14/2022 Delivery Address: Attn: 6th floor [facility]IP [facility] [address] [facility] [address] RX: Eligard Dose: 22.5mg 3 mo Quantity: [...] 4 DX: C61 Prostate Cancer ABEL Cerrato [facility] 06/14/2022, 11:50 AM * Galina Barnett OSA - 06/07/2022 9:47 AM EDT 06/07/2022- Reached out to Alba Iqbal for test claim POM Reason: Insurance Info: Auth Expiring: Pharmacy/Company: Phone number: [place] Location: [facility] Estimated Delivery Date: TBD Appointment Date: Ordered Date: Delivery Address: Attn: 6th floor [facility]IP [facility] [address] [facility] [address] RX: Eligard Dose: 22.5mg 3 mo Quantity: [...] 4 DX: C61 Prostate Cancer ABEL Donald [facility] 06/07/2022, 10:14 AM documented in this encounter Plan of Treatment Upcoming Encounters Date Type Department Care Team (Late st Contact Info) Description 03/22/2023 8:50 AM EST Laboratory Laboratory Scenery [facility] [address] [place] [address] [place], Lab Scenery [address] [place] [address] 03/23/2023 9:30 AM EST Telemedicine Hematology/Oncology, [address] [address] Stan Parra MD [facility] [place] [address] Cart, Telemed [facility] Hem Onc Clinic [address] [place] [address] 03/23/2023 10:00 AM EST Immunization/Injection Hematology/Oncology Treatment, [address] [address] [facility], [facility] Hem Onc [address] [place] [address] 04/16/2023 9:30 AM EST Pharmacy Pharmacy Hematology Oncology [place] [address] [place] [address] [facility], [facility] Clinic Hem/Onc [address] [place] [address] 05/03/2023 1:30 PM EST Office Visit Radiation Oncology, [facility] [address] [place] [address] Crescencio Obrien MD [address] [facility] [place] [address] 05/31/2023 9:40 AM EDT Office Visit Family [facility] [address] [facility] [place] [address] Kaz Rivas III, MD [address] [facility] [place] [address] Scheduled Procedures Name Priority Associated Diagnoses Date/Ti [...] the patient have Health Care Power of Nursery Helper? Yes, not currently available Care Teams Junior Database Administrator Relationship Specialty Start Date End Date Kaz Rivas III, MD [address] [place] [address] PCP - General 10/25/1995 documented as of this encounter
--- OUTSIDE RECORDS SUMMARY | 2023-05-26 18:11 | External Medical Summary | Summary of Care ---
Author Name Unknown Organization [facility] Address [address] [place] [address] Phone [phone] Care Team Providers Care Tumbler Plater Name Role Phone Evelyn FRANZ MD, Kaz Canela Primary Care Provider [phone] Encounter Details Date Type Department Care Team ([facility] st Contact Info) Description 03/02/2023 Specialty Pharmacy [facility], [address] [place] [address] Medication, Mtm Specialty Refill, [address] [address] Allergies Active Allergy Reactions Criticality Noted Date [...] Progress Notes * Vida Kelly CPhT - 03/02/2023 10:46 AM EST Prescribed medication: Medication: meredith galloway md office Shipment date: 03/14 Delivery method: Specialty Mail Location Medication Delivered too? MD OFFICE [address] [facility] Att: 6th Floor IIP JAIRON Kelly CPhT [facility] Specialty Pharmacy 03/02/2023,10:46 AM documented in this encounter Plan of Treatment Upcoming Encounters Date Type Department Care Team (Late st Contact Info) Description 03/16/2023 9:30 AM EST Laboratory Laboratory, [address] [address] [facility], Lab [address] [place] [address] 03/16/2023 10:30 AM EST Telemedicine Hematology/Oncology, [address] [address] Stan Parra MD [address] [place] [address] Cart, Telemed [facility] Hem Onc Clinic [address] [place] [address] 03/16/2023 11:00 AM EST Immunization/Injection Hematology/Oncology Treatment, [address] [address] [facility], Chair1 Hem Onc [address] [place] [address] 04/16/2023 9:30 AM EST Pharmacy Pharmacy Hematology Oncology [facility] [address] [place] [address] [facility] Hem/Onc [address] [place] [address] 05/03/2023 1:30 PM EST Office Visit Radiation Oncology, [facility] [address] [place] [address] Crescencio Obrien MD [address] [place] [address] 05/31/2023 9:40 AM EDT Office Visit Family Practice [facility] [place] [address] [facility] [place] [address] Kaz Rivas III, MD 200 [facility] [place] [address] Scheduled Procedures Name Priority Associated Diagnoses Date/Ti [...] the patient have Health Care Power of School Cafeteria Cook? Yes, not currently available Care Teams Tumbler Plater Relationship Specialty Start Date End Date Kaz Rivas III, MD [address] [facility] [place] [address] PCP - General 10/25/1995 documented as of this encounter
--- OUTSIDE RECORDS SUMMARY | 2023-05-26 18:11 | External Medical Summary | Summary of Care ---
Author Name Unknown Organization [facility] Address [address] [place] [address] Phone [phone] Care Team Providers Care Cvt Rn Name Role Phone Evelyn FRANZ MD, Kaz Canela Primary Care Provider [phone] Reason for Visit * Reason Comments Patient Assistance Program Encounter Details Date Type Department Care Team (Late st Contact Info) Description 06/07/2022 Documentation Hematology Oncology [facility] [address] [place] [address] Stan Parra MD [address] [place] [address] Allergies Active Allergy Reactions Criticality Noted Date Comments Levofloxacin Muscle pain 02/07/2018 Oxycodone Nausea/vomiting 02/07/2018 documented as of this encounter (statuses as of 02/08/2023) Medications Medication Sig Dispensed Refills Start Date [...] as of this encounter (statuses as of 02/08/2023) Active Problems Problem Noted Date Diagnosed Date [...] as of this encounter (statuses as of 02/08/2023) Resolved Problems Problem Noted Date Diagnosed Date Resolved Date Supraclavicular lymphadenopathy 02/11/2016 01/02/2018 Screening for prostate cancer 04/15/2003 05/20/2008 Overview: Resolved per Screening Diagnosis Protocol #6 Acute cholecystitis 11/25/2002 05/07/19 19 Diaphragmatic hernia 019 documented as of this encounter (statuses as of 02/08/2023) Immunizations Name Administration Dates Next Due COVID-19 mRNA, LNP-s, No Pre serve, 2-Dose Series (Moderna) 05/21/2020,04/23/2020 COVID-19, LNP-s, No Preserve , Rodriguez-sucrose, Ages 12+ (Pfizer) 04/06/2021 Pneumococcal Conjugate Vacc, 13 Valent (Prevnar) 01/12/2016 Pneumococcal Polysaccharide PPV23 (Pneumovax) 01/02/2018 SEASONAL INFLUENZA, PF, 6 M & Above, IM , (FLULAVAL or FLUZONE) 11/22/2018,01/02/2018 Season Influenza, Quad, PF, Adjuvanted, 65+ Yrs, IM (FLUAD) 12/18/2019 Seasonal Influenza, Quadriva lent Hd (Fluzone Hd) [...] Progress Notes * Jordan Andrade OSA - 02/08/2023 8:07 AM EST 02/08/2023 - Appt is 03/16/2023 , defer to 03/02/2023 to order Eligard from [facility] * Galina Barnett OSA - 12/06/2022 2:21 PM EDT Krysta Lr, army helicopter pilot 12/06/2022 13:58 | Received 1 kit of Eligard 12/06/2022 Estimated Delivery Date: Received 12/06/2022-P ABEL Donald [facility] 12/06/2022, 2:21 PM * Mary Jo Gar OSA - 11/27/2022 9:02 AM EDT 11/27/2022 - IM'd P to fill. Medication ordered. Defer to 12/06/2022 for delivery. POM Reason: Insurance mandated Insurance Info: Aetna Medicare Advantage Auth Expirin06/05/2025 Pharmacy/Company: [facility] Phone number: IM senior telecommunications technician [place] Location: [facility] Estimated Delivery Date: 12/06/2022 - [facility] Appointment Date: 12/11/2022 Ordered Date: 11/27/2022 Delivery Address: Attn: 6th floor [facility] [address] [facility] [place] [address] RX: Eligard Dose: 22.5mg 3 mo Quantity: [...] 4 DX: C61 Prostate Cancer ABEL Cerrato [facility] 11/27/2022, 1:19 PM * Mary Jo Gar OSA - 11/20/2022 12:01 PM EDT 11/20/2022 - Defer to 01/27/2023 to order refill. ABEL Cerrato [facility] 11/20/2022, 12:02 PM * Mary Jo Gar OSA - 08/31/2022 10:15 AM EDT 09/08/2022 - Received medication per pharmacy staff. Defer 11/20/2022 for refill. 08/31/2022 - IM'd [facility] for refill. Defer to 09/07/2022 for delivery. POM Reason: Insurance mandated Insurance Info: Aetna Medicare Advantage Auth Expirin06/05/2025 Pharmacy/Company: [facility] Phone number: IM senior telecommunications technician [place] Location:[facility] Estimated Delivery Date: received 09/07/2022 - [facility] Appointment Date: 09/11/2022 Ordered Date:08/31/2022 Delivery Address:Attn: [address]th [address] [address] RX:Eligard Dose:22.5mg 3 mo Quantity:1 Manufactured Supplied:No [...] x 4 DX:C61 Prostate Cancer ABEL Cerrato [facility] 08/31/2022, 10:18 AM * Liza Hoff OSA - 06/15/2022 2:56 PM EDT Estimated Delivery Date: Received 06/15/2022 - [facility] * Mary Jo Gar OSA - 06/14/2022 11:44 AM EDT 06/14/2022 - IM'd [facility] to fill script. Defer to 06/15/2022 for delivery. POM Reason: Insurance mandated Insurance Info: Aetna Medicare Advantage Auth Expirin06/05/2025 Pharmacy/Company: [facility] Phone number: IM senior telecommunications technician [place] Location: [facility] Estimated Delivery Date: 06/15/2022 - [facility] Appointment Date: 06/16/2022 Ordered Date:06/14/2022 Delivery Address: Attn: 6th floor IIP [facility] [address] [place] [address] RX: Eligard Dose: 22.5mg 3 mo Quantity: [...] 4 DX: C61 Prostate Cancer ABEL Cerrato [facility] 06/14/2022, 11:50 AM * Galina Barnett OSA - 06/07/2022 9:47 AM EDT 06/07/2022- Reached out to Alba Iqbal for test claim POM Reason: Insurance Info: Auth Expiring: Pharmacy/Company: Phone number: [place] Location: [facility] Estimated Delivery Date: TBD Appointment Date: Ordered Date: Delivery Address: Attn: 6th floor IIP [facility] [address] [place] [address] RX: Eligard Dose: 22.5mg 3 mo Quantity: [...] 4 DX: C61 Prostate Cancer ABEL Donald [facility] 06/07/2022, 10:14 AM documented in this encounter Plan of Treatment Upcoming Encounters Date Type Department Care Team (Late st Contact Info) Description 02/12/2023 9:30 AM EST Pharmacy Pharmacy Hematology Oncology [address] [address] [facility] Hem/Onc [address] [place] [address] 03/16/2023 9:30 AM EST Laboratory Laboratory, [address] [address] [facility], Lab [address] [place] [address] 03/16/2023 10:30 AM EST Telemedicine Hematology/Oncology, [address] [address] Stan Parra MD [facility] [place] [address] [facility] Hem Onc Clinic [address] [place] [address] 03/16/2023 11:00 AM EST Immunization/Injection Hematology/Oncology Treatment, [facility] [address] [place] [address] Gl, Chair10 Hem Onc [address] [place] [address] 05/03/2023 1:30 PM EST Office Visit Radiation Oncology, [facility] [address] [place] [address] Crescencio Obrien MD [address] [place] [address] 05/31/2023 9:40 AM EDT Office Visit Family Practice [facility] [place] [address] [facility] [address] Kaz Rivas III, MD [address] [facility] [place] [address] Scheduled Procedures Name Priority Associated Diagnoses Date/Ti me COLONOSCOPY FLEXIBLE PROXIMA L DIAGNOSTIC Recall History of colonic polyps Health Maintenance Due Date Last Done Comments Depression Screening 01/04/2020 01/03/2019 DTaP,Tdap,and Td Vaccines (2 - Td or Tdap) 08/25/2020 08/25/2010 COVID-19 Vaccine ( - 2022- season) 2022 04/06/2021, 05/21/2020, 04/23/2020 Influenza Vaccine (FLU shot) (#1) 2022 01/11/2022, 12/18/2019, 11/22/2018, Additional history exists GFR 01/12/2024 01/11/2023, 04/2022, 11/06/2022, Additional history exists Albumin/Creatinine Ratio 10/05/2024 10/05/2021 [...] the patient have Health Care Power of Special Needs Babysitter? Yes, not currently available Care Teams Cvt Rn Relationship Specialty Start Date End Date Kaz Rivas III, MD [address] [place] [address] PCP - General 10/25/1995 documented as of this encounter"
--- OUTSIDE RECORDS SUMMARY | 2023-05-26 18:11 | External Medical Summary | Summary of Care ---
Author Name Unknown Organization [facility] Address [address] [place] [address] Phone [phone] Care Team Providers Care Clothing Presser Name Role Phone Evelyn FRANZ MD, Kaz Canela Primary Care Provider [phone] Encounter Details Date Type Department Care Team ([facility] st Contact Info) Description 01/29/2023 [facility]ty [facility], [address] [place] [address] Medication, Mtm Specialty, [address] [place] [address] Allergies Active Allergy Reactions Criticality Noted Date Comments Levofloxacin Muscle pain 02/07/2018 Oxycodone Nausea/vomiting 02/07/2018 documented as of this encounter (statuses as of 01/29/2023) Medications Medication Sig Dispensed Refills Start Date [...] as of this encounter (statuses as of 01/29/2023) Active Problems Problem Noted Date Diagnosed Date [...] as of this encounter (statuses as of 01/29/2023) Resolved Problems Problem Noted Date Diagnosed Date Resolved Date Supraclavicular lymphadenopathy 02/11/2016 01/02/2018 Screening for prostate cancer 04/15/2003 05/20/2008 Overview: Resolved per Screening Diagnosis Protocol #6 Acute cholecystitis 11/25/2002 05/07/19 19 Diaphragmatic hernia 019 documented as of this encounter (statuses as of 01/29/2023) Immunizations Name Administration Dates Next Due COVID-19 [...] as of this encounter Progress Notes * Idania Franco PHARM Tech - 01/29/2023 12:33 PM EST Prescribed medication: Medication: Prednisone Shipment date: 01/31 Delivery method: Specialty Mail Location Medication Delivered too? Home Address: [address] [place] [phone] KHOI Jones [facility] Specialty Pharmacy 01/29/2023,12:33 PM documented in this encounter Plan of Treatment Upcoming Encounters Date Type Department Care Team (Late st Contact Info) Description 02/12/2023 9:30 AM EST Pharmacy Pharmacy Hematology Oncology [place] [address] [place] [address] [facility] Hem/Onc [facility] [place] [address] 03/16/2023 9:30 AM EST Laboratory Laboratory, [address] [id number] [facility], Lab [address] [place] [address] 03/16/2023 10:30 AM EST Telemedicine Hematology/Oncology, [address] [address] Stan Parra MD [address] [place] [address] Buffy, Telemed [facility] Hem Onc Clinic [address] [place] [address] 03/16/2023 11:00 AM EST Immunization/Injection Hematology/Oncology Treatment, [address] [address] [facility], Chair10 Hem Onc [address] [place] [address] 05/03/2023 1:30 PM EST Office Visit Radiation Oncology, [facility] [address] [facility], [place] [address] Crescencio Obrien MD 400 [facility] [address] 05/31/2023 9:40 AM EDT Office Visit Family Practice [facility] [place] 200 [facility] [place] [address] Kaz Rivas III, MD 200 [facility] [place] [address] Scheduled Procedures Name Priority Associated Diagnoses Date/Ti [...] the patient have Health Care Power of Cell Coverer? Yes, not currently available Care Teams Clothing Presser Relationship Specialty Start Date End Date Kaz Rivas III, MD [address] [facility] [place] [address] PCP - General 10/25/1995 documented as of this encounter
--- OUTSIDE RECORDS SUMMARY | 2023-05-26 18:11 | External Medical Summary | Summary of Care ---
Author Name Unknown Organization [facility] Address [address] [place] [address] Phone [phone] Care Team Providers Care Supervisor Poultry Processing Name Role Phone Evelyn FRANZ MD, Kaz Canela Primary Care Provider [phone] Reason for Visit * Reason Comments Patient Assistance Program Encounter Details Date Type Department Care Team (Late st Contact Info) Description 06/07/2022 Documentation Hematology Oncology [facility] [address] [place] [address] Stan Parra MD [address] [place] [address] Allergies Active Allergy Reactions Criticality Noted Date Comments Levofloxacin Muscle pain 02/07/2018 Oxycodone Nausea/vomiting 02/07/2018 documented as of this encounter (statuses as of 03/15/2023) Medications Medication Sig Dispensed Refills Start Date [...] as of this encounter (statuses as of 03/15/2023) Active Problems Problem Noted Date Diagnosed Date [...] as of this encounter (statuses as of 03/15/2023) Resolved Problems Problem Noted Date Diagnosed Date Resolved Date Supraclavicular lymphadenopathy 02/11/2016 01/02/2018 Screening for prostate cancer 04/15/2003 05/20/2008 Overview: Resolved per Screening Diagnosis Protocol #6 Acute cholecystitis 11/25/2002 05/07/19 19 Diaphragmatic hernia 019 documented as of this encounter (statuses as of 03/15/2023) Immunizations Name Administration Dates Next Due COVID-19 [...] they are waiting to hear from a medical sales representative from [facility] regarding the ordering issue but we [...] Mcwilliams 03/14/2023 - Per Vida Kelly at [facility] "Piyush Fadi Eligard did not come in today [facility] Vida Mcwilliams is working with the buying [...] [facility] Phone number: IM cook chill technician [place] Location: [facility] Estimated Delivery Date: 03/15/2023 - [facility] Appointment Date: 03/16/2023 Ordered Date: 03/02/2023 Delivery Address: Attn: 6th floor IIP POM [address] [place] [address] RX: Eligard Dose: 22.5mg 3 mo Quantity: [...] - 12/06/2022 2:21 PM EDT Krysta Lr, detective and intelligence analyst 12/06/2022 13:58 | Received 1 kit of Eligard 12/06/2022 Estimated Delivery Date: Received 12/06/2022-[facility] ABEL [facility] 12/06/2022, 2:21 PM * Mary Jo Gar OSA - 11/27/2022 9:02 AM EDT 11/27/2022 - IM'd P to fill. Medication ordered. Defer to 12/06/2022 for delivery. POM Reason: Insurance mandated Insurance Info: Aetna Medicare Advantage Auth Expirin06/05/2025 Pharmacy/Company: [facility] Phone number: IM cook chill technician [place] Location: [facility] Estimated Delivery Date: 12/06/2022 - gsp Appointment Date: 12/11/2022 Ordered Date: 11/27/2022 Delivery Address: Attn: 6th floor IIP POM [address] [place] [address] RX: Eligard Dose: 22.5mg 3 mo Quantity: [...] 4 DX: C61 Prostate Cancer ABEL Cerrato [facility] 11/27/2022, 1:19 PM * Mary Jo Gar OSA - 11/20/2022 12:01 PM EDT 11/20/2022 - Defer to 01/27/2023 to order refill. ABEL Cerrato [facility] 11/20/2022, 12:02 PM * Mary Jo Gar OSA - 08/31/2022 10:15 AM EDT 09/08/2022 - Received medication per pharmacy staff. Defer 11/20/2022 for refill. 08/31/2022 - IM'd [facility] for refill. Defer to 09/07/2022 for delivery. POM Reason: Insurance mandated Insurance Info: Aetna Medicare Advantage Auth Expirin06/05/2025 Pharmacy/Company: [facility] Phone number: IM cook chill technician [place] Location:[facility] Estimated Delivery Date: received 09/07/2022 - gsp Appointment Date: 09/11/2022 Ordered Date:08/31/2022 Delivery Address:Attn: 6th floor IIP [address] [place] [address] RX:Eligard Dose:22.5mg 3 mo Quantity:1 Manufactured Supplied:No [...] x 4 DX:C61 Prostate Cancer [facility] 08/31/2022, 10:18 AM * Liza Hoff OSA - 06/15/2022 2:56 PM EDT Estimated Delivery Date: Received 06/15/2022 - GSP * Mary Jo Gar OSA - 06/14/2022 11:44 AM EDT 06/14/2022 - IM'd [facility] to fill script. Defer to 06/15/2022 for delivery. POM Reason: Insurance mandated Insurance Info: Aetna Medicare Advantage Auth Expirin06/05/2025 Pharmacy/Company: P Phone number: IM cook chill technician [place] Location: [facility] Estimated Delivery Date: 06/15/2022 - [facility] Appointment Date: 06/16/2022 Ordered Date:06/14/2022 Delivery Address: Attn: 6th floor IIP POM [address] [place] [address] RX: Eligard Dose: 22.5mg 3 mo Quantity: [...] 4 DX: C61 Prostate Cancer ABEL C[facility]ato [facility] 06/14/2022, 11:50 AM * Galina Barnett OSA - 06/07/2022 9:47 AM EDT 06/07/2022- Reached out to Alba Iqbal for test claim POM Reason: Insurance Info: Auth Expiring: Pharmacy/Company: Phone number: [place] Location: [facility] Estimated Delivery Date: TBD Appointment Date: Ordered Date: Delivery Address: Attn: 6th floor IIP POM [address] [place] [address] RX: Eligard Dose: 22.5mg 3 mo Quantity: [...] 4 DX: C61 Prostate Cancer ABEL [facility] 06/07/2022, 10:14 AM documented in this encounter Plan of Treatment Upcoming Encounters Date Type Department Care Team (Late st Contact Info) Description 03/22/2023 8:50 AM EST Laboratory Laboratory [facility] [place] [address] [place] [id number] [place], Lab Scenery [address] [place] [address] 03/23/2023 9:30 AM EST Telemedicine Hematology/Oncology, [address] [address] Stan Parra MD [address] [place] [address] Seda Baer [facility] Hem Onc Clinic [address] [place] [id number] 03/23/2023 10:00 AM EST Immunization/Injection Hematology/Oncology Treatment, [address] [place] [address] Gl, Chair5 Hem Onc [address] [place] [address] 04/16/2023 9:30 AM EST Pharmacy Pharmacy Hematology Oncology [facility] [address] [place] [address] [facility], [facility] Clinic Hem/Onc [address] [place] [address] 05/03/2023 1:30 PM EST Office Visit Radiation Oncology, [facility] [address] [place] [address] Crescencio Obrien MD [address] [place] [address] 05/31/2023 9:40 AM EDT Office Visit Family Practice [facility] [place] 200 [facility] [place] [address] Kaz Rivas III, MD 200 [place] [address] Scheduled Procedures Name Priority Associated Diagnoses Date/Ti [...] the patient have Health Care Power of Military Personnel Specialist? Yes, not currently available Care Teams Supervisor Poultry Processing Relationship Specialty Start Date End Date Kaz Rivas III, MD [address] [place] [address] PCP - General 10/25/1995 documented as of this encounter
--- OUTSIDE RECORDS SUMMARY | 2023-05-26 18:11 | External Medical Summary ---
Author Name Unknown Address Unknown Organization K0G:[facility] [address] [place] [address] Laboratory Report Ordering Provider Test Date Status JESÚS BESS 02/10/2023 10:56:26 Final Every two weeks for three mo nths, then every month (patients with moderate hep impairment every week for one month, every two weeks for two months, then every month) Observation Date Value Abnormality Reference (Units ) Status BUN 02/10/2023 10:56:26 14 6-20 (mg/dL) Final Creatinine 02/10/2023 10:56:26 0.9 0.6-1.2 (mg/dL) Final Glomerular filtration rate/1.73 sq M.predicted [Volume Rate/Area] in Serum, Plasma or Blood by Creatinine-based formula (CKD-EPI) 02/10/2023 10:56:26 >90 >=60 (mL/min) Final eGFR is calculated based on the CKD-EPI 2020 equation SODIUM 02/10/2023 10:56:26 142 135-146 (m mol/L) Final Potassium 02/10/2023 10:56:26 4.0 3.5-5.1 (m mol/L) Final Cl 02/10/2023 10:56:26 105 98-107 (mm ol/L) Final CO2 02/10/2023 10:56:26 28 22-32 (mmo l/L) Final Anion gap 02/10/2023 10:56:26 9 7-15 (mmol /L) Final Glucose 02/10/2023 10:56:26 82 70-120 (mg /dL) Final Albumin 02/10/2023 10:56:26 3.9 3.8-5.0 (g /dL) Final AST (Aspartate aminotransferase) 02/10/2023 10:56:26 21 10-50 (U/L) Fin al Alk Phos 02/10/2023 10:56:26 72 35-130 (U/ L) Final Bilirubin, Total 02/10/2023 10:56:26 0.4 <=1 .2 (mg/dL) Final Calcium 02/10/2023 10:56:26 9.4 8.4-10.2 ( mg/dL) Final Protein 02/10/2023 10:56:26 6.7 6.0-8.3 (g /dL) Final ALT (Alanine aminotransferase) 02/10/2023 10:56:26 7 Below low normal 10-50 (U/L) Final Performing Location [facility] [place] [address] [facility] [address]
--- OUTSIDE RECORDS SUMMARY | 2023-05-26 18:11 | External Medical Summary | Summary of Care ---
Author Name Unknown Organization [facility] Address [address] [place] [address] Phone [phone] Care Team Providers Care Environmental Protection Officer Name Role Phone Evelyn FRANZ MD, Kaz Canela Primary Care Provider [phone] Reason for Visit * Reason Comments Outpatient Testing Encounter Details Date Type Department Care Team (Late st Contact Info) Description 02/10/2023 10:50 AM EST Laboratory Laboratory, [facility] 132 [facility] [place] [phone] [facility] [address] [place] [address] Malignant neoplasm of prostate (HCC); First Aid Shot Therapy Research Other*[id number] Allergies Active Allergy Reactions Criticality Noted Date Comments Levofloxacin Muscle pain 02/07/2018 Oxycodone Nausea/vomiting 02/07/2018 documented as of this encounter (statuses as of 02/10/2023) Medications Medication Sig Dispensed Refills Start Date [...] as of this encounter (statuses as of 02/10/2023) Active Problems Problem Noted Date Diagnosed Date [...] as of this encounter (statuses as of 02/10/2023) Resolved Problems Problem Noted Date Diagnosed Date Resolved Date Supraclavicular lymphadenopathy 02/11/2016 01/02/2018 Screening for prostate cancer 04/15/2003 05/20/2008 Overview: Resolved per Screening Diagnosis Protocol #6 Acute cholecystitis 11/25/2002 05/07/19 19 Diaphragmatic hernia 019 documented as of this encounter (statuses as of 02/10/2023) Immunizations Name Administration Dates Next Due COVID-19 [...] 9:30 AM EST Pharmacy Pharmacy Hematology Oncology [place] [address] [place] [address] [facility], [facility] Hem/Onc [address] [place] [address] 03/16/2023 9:30 AM EST Laboratory Laboratory, [address] [phone] [facility], Lab [address] [place] [address] 03/16/2023 10:30 AM EST Telemedicine Hematology/Oncology, [address] [address] Stan Parra MD [facility] [place] [address] Cart, Telemed [facility] Hem Onc Clinic [address] [place] [address] 03/16/2023 11:00 AM EST Immunization/Injection Hematology/Oncology Treatment, [address] [address] [facility], Chair10 Hem Onc [address] [place] [address] 05/03/2023 1:30 PM EST Office Visit Radiation Oncology, [facility] [address] [place] [address] Crescencio Obrien MD [address] [place], [place] [address], [place] [address] 05/31/2023 9:40 AM EDT Office Visit Family Practice [facility] [place] 200 [facility] [place] [address] Kaz Rivas III, MD 200 [facility] [place] [address] Pending Results Name Type Priority Associated Diagnoses Date /Time COMPREHENSIVE METABOLIC PANEL Lab STAT Malignant neoplasm of prostate (HCC) 02/10/2023 10:56 AM EST MYCODE SUBSEQUENT ADULT Lab Routine MyCode Research Other*[id number] 02/10/2023 10:56 AM EST MYCODE SST1 Lab Routine [employer] [facility] Other*[id number] 02/10/2023 10:56 AM EST MYCODE SST2 Lab Routine My[employer] Research Other*[id number] 02/10/2023 10:56 AM EST Scheduled Procedures Name Priority Associated [...] of prostate (HCC) Malignant neoplasm of prostate [employer] Other*[id number] documented in this encounter Advance Directives Latest [...] the patient have Health Care Power of Vacuum Cleaner Operator? Yes, not currently available Care Teams Environmental Protection Officer Relationship Specialty Start Date End Date Kaz Rivas III, MD [address] [place] [address] PCP - General 10/25/1995 documented as of this encounter
--- OUTSIDE RECORDS SUMMARY | 2023-05-26 18:11 | External Medical Summary | Summary of Care ---
Author Name Unknown Organization [facility] Address [address] [place] [address] Phone [phone] Care Team Providers Care Biomedical Field Service Engineer Name Role Phone Evelyn FRANZ MD, Kaz Canela Primary Care Provider [phone] Encounter Details Date Type Department Care Team ([facility] st Contact Info) Description 03/02/2023 Specialty Pharmacy [facility], [address], [address] [place] [address] Medication, Mtm Specialty Refill, [address] [address] Allergies Active Allergy Reactions Criticality Noted Date [...] as of this encounter Progress Notes * Ricardo Gordon [facility] - 03/15/2023 4:50 PM EST Left message regarding Meredith backorder at provider's office. Advised we will call when available Ricardo Gordon Rph [facility] Specialty Pharmacy 03/15/2023,4:50 PM * Vida Kelly CPhT - 03/02/2023 10:46 AM EST Prescribed medication: Medication: meredith galloway md office Shipment date: 03/14 Delivery method: Specialty Mail Location Medication Delivered too? MD OFFICE [address] [place] [address] Att: 6th Floor IIP JAIRON Kelly CPhT [facility] Specialty Pharm[facility] 03/02/2023,10:46 AM documented in this encounter Plan of Treatment Upcoming Encounters Date Type Department Care Team (Late st Contact Info) Description 03/22/2023 8:50 AM EST Laboratory Laboratory [facility] [address] [place] [phone] [place], Lab Scenery [address] [place] [address] 03/23/2023 9:30 AM EST Telemedicine Hematology/Oncology, [address] [place] [address] Stan Parra MD [address] [place] [address] Cart, Telemed [facility] Hem Onc Clinic [address] [place] [address] [place] [id number] 03/23/2023 10:00 AM EST Immunization/Injection Hematology/Oncology Treatment, [address] [place] [address] [facility], Chair5 Hem Onc [address] [place] [address] 04/16/2023 9:30 AM EST Pharmacy Pharmacy Hematology Oncology [facility] [address] [place] [address] [facility], [facility] Clinic Hem/Onc [address] [place] [address] 05/03/2023 1:30 PM EST Office Visit Radiation Oncology, [facility] [address] [place] [address] Crescencio Obrien MD [address] [place] [address] 05/31/2023 9:40 AM EDT Office Visit Family Practice [facility] [place] 200 [place] [address] Kaz Rivas III, MD 200 [place] [address] Scheduled Procedures Name Priority Associated Diagnoses Date/Ti [...] the patient have Health Care Power of Sample Mounter? Yes, not currently available Care Teams Biomedical Field Service Engineer Relationship Specialty Start Date End Date Kaz Rivas III, MD [address] [place] [address] PCP - General 10/25/1995 documented as of this encounter
--- OUTSIDE RECORDS SUMMARY | 2023-05-26 18:11 | External Medical Summary | Summary of Care ---
Author Name Unknown Organization [facility] Address [address] [place] [address] Phone [phone] Care Team Providers Care Supervisor Prepress Name Role Phone Evelyn FRANZ MD, Kaz Canela Primary Care Provider [phone] Reason for Visit * Reason Comments Patient Assistance Program Encounter Details Date Type Department Care Team (Late st Contact Info) Description 06/07/2022 Documentation Hematology Oncology [facility] [address] [place] [address] Stan Parra MD [address] [place] [address] Allergies Active Allergy Reactions Criticality [...] they are waiting to hear from a territory account representative from [facility] regarding the ordering issue but we have [...] 03/14/2023 - Per Vida Kelly at [facility] "Piyush Fadi Eligard did not come in today [facility] Vida Mcwilliams is working with [...] [employer]na Medicare Advantage Auth Expirin06/05/2025 Pharmacy/Company: [facility] Phone number: IM eeg technician [place] Location: [facility] Estimated Delivery Date: 03/15/2023 - [facility] Appointment Date: 03/16/2023 Ordered Date: 03/02/2023 Delivery Address: Attn: 6th floor IIP [facility] [address] [place] [address] RX: Eligard Dose: 22.5mg 3 mo Quantity: [...] - 12/06/2022 2:21 PM EDT Krysta Lr, mud grinder 12/06/2022 13:58 | Received 1 kit of Eligard 12/06/2022 Estimated Delivery Date: Received 12/06/2022-[facility] ABEL Donald [facility] 12/06/2022, 2:21 PM * Mary Jo Gar OSA - 11/27/2022 9:02 AM EDT 11/27/2022 - IM'd [facility] to fill. Medication ordered. Defer to 12/06/2022 for delivery. POM Reason: Insurance mandated Insurance Info: Aetna Medicare Advantage Auth Expirin06/05/2025 Pharmacy/Company: [facility] Phone number: IM eeg technician [place] Location: [facility] Estimated Delivery Date: 12/06/2022 - [facility]sp Appointment Date: 12/11/2022 Ordered Date: 11/27/2022 Delivery Address: Attn: 6th floor IIP POM [address] [place] [address] [place] [address] RX: Eligard Dose: 22.5mg 3 mo Quantity: [...] 4 DX: C61 Prostate Cancer ABEL Cerrato [facility] 11/27/2022, 1:19 PM * Mary Jo Gar OSA - 11/20/2022 12:01 PM EDT 11/20/2022 - Defer to 01/27/2023 to order refill. ABEL Cerrato [facility] 11/20/2022, 12:02 PM * Mary Jo Gar OSA - 08/31/2022 10:15 AM EDT 09/08/2022 - Received medication per pharmacy staff. Defer 11/20/2022 for refill. 08/31/2022 - IM'd [facility] for refill. Defer to 09/07/2022 for delivery. POM Reason: Insurance mandated Insurance Info: A[employer]na Medicare Advantage Auth Expirin06/05/2025 Pharmacy/Company: [facility] Phone number: IM eeg technician [place] Location:[facility] Estimated Delivery Date: received 09/07/2022 - [facility]sp Appointment Date: 09/11/2022 Ordered Date:08/31/2022 Delivery Address:Attn: 6th floor IIP POM 400 [facility] [address] RX:Eligard Dose:22.5mg 3 mo Quantity:1 Manufactured Supplied:No [...] x 4 DX:C61 Prostate Cancer ABEL Cerrato [facility] 08/31/2022, 10:18 AM * Liza Hoff OSA - 06/15/2022 2:56 PM EDT Estimated Delivery Date: Received 06/15/2022 - [facility] * Mary Jo Gar OSA - 06/14/2022 11:44 AM EDT 06/14/2022 - IM'd [facility] to fill script. Defer to 06/15/2022 for delivery. POM Reason: Insurance mandated Insurance Info: Aetna Medicare Advantage Auth Expirin06/05/2025 Pharmacy/Company: P Phone number: IM eeg technician [place] Location: [facility] Estimated Delivery Date: 06/15/2022 - [facility] Appointment Date: 06/16/2022 Ordered Date:06/14/2022 Delivery Address: Attn: 6th floor IIP [address] [place] [address] RX: Eligard Dose: 22.5mg 3 mo Quantity: [...] 4 DX: C61 Prostate Cancer ABEL Cerrato [facility] 06/14/2022, 11:50 AM * Galina Barnett OSA - 06/07/2022 9:47 AM EDT 06/07/2022- Reached out to Alba Iqbal for test claim POM Reason: Insurance Info: Auth Expiring: Pharmacy/Company: Phone number: [place] Location: [facility] Estimated Delivery Date: TBD Appointment Date: Ordered Date: Delivery Address: Attn: 6th floor IIP POM [address] [facility] [place] [address] RX: Eligard Dose: 22.5mg 3 mo Quantity: [...] 4 DX: C61 Prostate Cancer ABEL Donald [facility] 06/07/2022, 10:14 AM documented in this encounter Plan of Treatment Upcoming Encounters Date Type Department Care Team (Late st Contact Info) Description 03/22/2023 8:50 AM EST Laboratory Laboratory [facility] [place] [address] [place], [place] [address] [facility] Lab [address]en[address] [place] [address] 03/23/2023 9:30 AM EST Telemedicine Hematology/Oncology, [address] [address] Stan Parra MD [address] [facility] [place] [address] Dawna Baered [facility] Hem Onc Clinic [address] [place], [place] [address] [address] 03/23/2023 10:00 AM EST Immunization/Injection Hematology/Oncology Treatment, [address] [place] [address] [facility], Chair5 Hem Onc [address] [place] [address] 04/16/2023 9:30 AM EST Pharmacy Pharmacy Hematology Oncology [facility] [address] [place] [address] [facility], [facility] Hem/Onc [address] [place] [address] 05/03/2023 1:30 PM EST Office Visit Radiation Oncology, [facility] [address] [place] [address] Crescencio Obrien MD [address] [place] [address] 05/31/2023 9:40 AM EDT Office Visit Family Practice [facility] [place] 200 [facility] [place] [address] Kaz Rivas III, MD 200 [place] [address] Scheduled Procedures Name Priority Associated Diagnoses Date/Ti me COLONOSCOPY FLEXIBLE PROXIMA L DIAGNOSTIC Recall History of colonic polyps Health Maintenance Due Date Last Done Comments Depression Screening 01/04/2020 01/03/2019 DTaP,Tdap,and Td Vaccines (2 - Td or Tdap) 08/25/2020 08/25/2010 COVID-19 Vaccine ( - 2022-24 season) 2022 04/06/2021, 05/21/2020, 04/23/2020 Influenza Vaccine [...] the patient have Health Care Power of Analytics Analyst? Yes, not currently available Care Teams Supervisor Prepress Relationship Specialty Start Date End Date Kaz Rivas III, MD [address] [place] [address] PCP - General 10/25/1995 documented as of this encounter
--- OUTSIDE RECORDS SUMMARY | 2023-05-26 18:11 | External Medical Summary | Summary of Care ---
Author Name Unknown Organization [facility] Address [address] [place] [address] Phone [phone] Care Team Providers Care Ampoule Washing Machine Operator Name Role Phone Evelyn FRANZ MD, Kaz Canela Primary Care Provider [phone] Reason for Visit * Reason Comments Patient Assistance Program Encounter Details Date Type Department Care Team (Late st Contact Info) Description 06/07/2022 Documentation Hematology Oncology [facility] [address] [place] [address] Stan Parra MD [address] [place] [address] Allergies Active Allergy Reactions Criticality [...] EST 03/14/2023 - Per Vida Kelly at [facility] "Piyush Aponte Eligard did not come in today [facility] Vida Mcwilliams is working with the buying team to see if it'll come tomorrow." Message to Vida Mcwilliams to keep updated on progress, appt has been moved from 03/16 to 03/23. Push out 1 day to follow up on drug status. 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 well fishing tool technician [place] Location: [facility] Estimated Delivery Date: 03/15/2023 - [facility] Appointment Date: 03/16/2023 Ordered Date: 03/02/2023 Delivery Address: Attn: 6th floor IIP [facility] [address] [facility] [place] [address] RX: Eligard Dose: 22.5mg 3 mo Quantity: [...] to 03/02/2023 to order Eligard from [facility] * Galina Barnett OSA - 12/06/2022 2:21 PM EDT Krysta Lr, order make up clerk 12/06/2022 13:58 | Received 1 kit of Eligard 12/06/2022 Estimated Delivery Date: Received 12/06/2022-P ABEL Donald [facility] 12/06/2022, 2:21 PM * Mary Jo Gar OSA - 11/27/2022 9:02 AM EDT 11/27/2022 - IM'd [facility] to fill. Medication ordered. Defer to 12/06/2022 for delivery. POM Reason: Insurance mandated Insurance Info: Aetna Medicare Advantage Auth Expirin06/05/2025 Pharmacy/Company: [facility] Phone number: IM oil well fishing tool technician [place] Location: [facility] Estimated Delivery Date: 12/06/2022 - [facility] Appointment Date: 12/11/2022 Ordered Date: 11/27/2022 Delivery Address: Attn: 6th floor IIP [facility] [address] [facility] [place] [address] RX: Eligard Dose: 22.5mg 3 mo Quantity: [...] 4 DX: C61 Prostate Cancer ABEL Cerrato [facility] 11/27/2022, 1:19 PM * Mary Jo Gar OSA - 11/20/2022 12:01 PM EDT 11/20/2022 - Defer to 01/27/2023 to order refill. ABEL Cerrato [facility] 11/20/2022, 12:02 PM * Mary Jo Gar OSA - 08/31/2022 10:15 AM EDT 09/08/2022 - Received medication per pharmacy staff. Defer 11/20/2022 for refill. 08/31/2022 - IM'd [facility] for refill. Defer to 09/07/2022 for delivery. POM Reason: Insurance mandated Insurance Info: Aetna Medicare Advantage Auth Expirin06/05/2025 Pharmacy/Company: P Phone number: IM oil well fishing tool technician [place] Location:[facility] Estimated Delivery Date: received 09/07/2022 - [facility] Appointment Date: 09/11/2022 Ordered Date:08/31/2022 Delivery Address:Attn: 6th floor IIP [facility] [address] [place] [address] RX:Eligard Dose:22.5mg 3 mo Quantity:1 Manufactured Supplied:No [...] x 4 DX:C61 Prostate Cancer ABEL Cerrato [facility] 08/31/2022, 10:18 AM * Liza Hoff OSA - 06/15/2022 2:56 PM EDT Estimated Delivery Date: Received 06/15/2022 - [facility] * Mary Jo Gar OSA - 06/14/2022 11:44 AM EDT 06/14/2022 - IM'd [facility] to fill script. Defer to 06/15/2022 for delivery. POM Reason: Insurance mandated Insurance Info: Aetna Medicare Advantage Auth Expirin06/05/2025 Pharmacy/Company: P Phone number: IM oil well fishing tool technician [place] Location: [facility] Estimated Delivery Date: 06/15/2022 - [facility] Appointment Date: 06/16/2022 Ordered Date:06/14/2022 Delivery Address: Attn: 6th floor [facility] [place] [address] RX: Eligard Dose: 22.5mg 3 mo Quantity: [...] 4 DX: C61 Prostate Cancer ABEL Cerrato [facility] 06/14/2022, 11:50 AM * Galina Barnett OSA - 06/07/2022 9:47 AM EDT 06/07/2022- Reached out to Alba Iqbal for test claim POM Reason: Insurance Info: Auth Expiring: Pharmacy/Company: Phone number: [place] Location: [facility] Estimated Delivery Date: TBD Appointment Date: Ordered Date: Delivery Address: Attn: 6th floor [facility] [address] RX: Eligard Dose: 22.5mg 3 mo Quantity: [...] 4 DX: C61 Prostate Cancer ABEL Donald [facility] 06/07/2022, 10:14 AM documented in this encounter Plan of Treatment Upcoming Encounters Date Type Department Care Team (Late st Contact Info) Description 03/22/2023 8:50 AM EST Laboratory Laboratory Scenery [facility] [address] [place] [address] [place], Lab Scenery [address] [place] [address] 03/23/2023 9:30 AM EST Telemedicine Hematology/Oncology, [address] [place] [address] [address] Stan Parra MD [facility] [place] [address] Cart, Telemed [facility] Hem Onc Clinic [address] [place] [address] 03/23/2023 10:00 AM EST Immunization/Injection Hematology/Oncology Treatment, [address] [address] [facility], [facility] Hem Onc [address] [place] [address] 04/16/2023 9:30 AM EST Pharmacy Pharmacy Hematology Oncology [place] [address] [place] [address] [facility], [facility] Hem/Onc [address] [place] [address] 05/03/2023 1:30 PM EST Office Visit Radiation Oncology, [facility] [address] [place] [address] Crescencio Obrien MD [address] [facility] [place] [address] 05/31/2023 9:40 AM EDT Office Visit [facility] [address] [facility] [place] [address] Kaz Rivas III, MD 200 [facility] [place] [address] Scheduled Procedures Name Priority Associated Diagnoses Date/Ti [...] patient have Health Care Power of Director Custom? Yes, not currently available Care Teams Ampoule Washing Machine Operator Relationship Specialty Start Date End Date Kaz Rivas III, MD [address] [place] [address] PCP - General 10/25/1995 documented as of this encounter
--- OUTSIDE RECORDS SUMMARY | 2023-05-26 18:11 | External Medical Summary ---
Author Name Unknown Address Unknown Organization K01:[facility] [place] - [address] [place] [address] Laboratory Report Ordering Provider Test Date Status DAVE HALEY 02/10/2023 10:56:26 Final Observation Date Value Abnormality Reference (Units ) Status MYCODE SPECIMEN-SST 02/10/2023 10:56:26 Freezing of extracted DNA, whole blood and/or serum. Final Performing Location [facility] [place] - [address] [place] [address]
--- OUTSIDE RECORDS SUMMARY | 2023-05-26 18:11 | External Medical Summary | Summary of Care ---
Author Name Unknown Organization [facility] Address [address] [place] [address] Phone [phone] Care Team Providers Care Tunnel Kiln Firer Name Role Phone Evelyn FRANZ MD, Kaz Canela Primary Care Provider [phone] Reason for Visit * Reason Comments Patient Assistance Program Encounter Details Date Type Department Care Team (Late st Contact Info) Description 06/07/2022 Documentation Hematology Oncology [facility] [address] [place] [address] Stan Parra MD [address] [place] [address] Allergies Active Allergy Reactions Criticality [...] Info: Aetna Medicare Advantage Auth Expirin06/05/2025 Pharmacy/Company: [facility] Phone number: IM biomedical equipment technician [place] Location: [facility] Estimated Delivery Date: 03/15/2023 - [facility] Appointment Date: 03/16/2023 Ordered Date: 03/02/2023 Delivery Address: Attn: 6th floor IIP [facility] [address] [place] [address] RX: Eligard Dose: 22.5mg 3 mo Quantity: [...] defer to 03/02/2023 to order Eligard from [facility] * Galina Barnett OSA - 12/06/2022 2:21 PM EDT Krysta Lr, vamp seamer 12/06/2022 13:58 | Received 1 kit of Eligard 12/06/2022 Estimated Delivery Date: Received 12/06/2022-[facility] ABEL Doanld [facility] 12/06/2022, 2:21 PM * Mary Jo Gar OSA - 11/27/2022 9:02 AM EDT 11/27/2022 - IM'd [facility] to fill. Medication ordered. Defer to 12/06/2022 for delivery. POM Reason: Insurance mandated Insurance Info: Aetna Medicare Advantage Auth Expirin06/05/2025 Pharmacy/Company: [facility] Phone number: IM biomedical equipment technician [place] Location: [facility] Estimated Delivery Date: 12/06/2022 - [facility] Appointment Date: 12/11/2022 Ordered Date: 11/27/2022 Delivery Address: Attn: 6th floor IIP [facility] [address] [place] [address] RX: Eligard Dose: 22.5mg 3 mo Quantity: [...] 4 DX: C61 Prostate Cancer ABEL Cerrato [facility] 11/27/2022, 1:19 PM * Mary Jo Gar OSA - 11/20/2022 12:01 PM EDT 11/20/2022 - Defer to 01/27/2023 to order refill. ABEL Cerrato [facility] 11/20/2022, 12:02 PM * Mary Jo Gar OSA - 08/31/2022 10:15 AM EDT 09/08/2022 - Received medication per pharmacy staff. Defer 11/20/2022 for refill. 08/31/2022 - IM'd [facility] for refill. Defer to 09/07/2022 for delivery. POM Reason: Insurance mandated Insurance Info: Aetna Medicare Advantage Auth Expirin06/05/2025 Pharmacy/Company: [facility] Phone number: IM biomedical equipment technician [place] Location:[facility] Estimated Delivery Date: received 09/07/2022 - [facility] Appointment Date: 09/11/2022 Ordered Date:08/31/2022 Delivery Address:Attn: 6th floor IIP [facility] [address] [place] [address] RX:Eligard Dose:22.5mg 3 mo Quantity:1 Manufactured Supplied:No [...] x 4 DX:C61 Prostate Cancer ABEL Cerrato [facility] 08/31/2022, 10:18 AM * Liza Hoff OSA - 06/15/2022 2:56 PM EDT Estimated Delivery Date: Received 06/15/2022 - [facility] * Mary Jo Gar OSA - 06/14/2022 11:44 AM EDT 06/14/2022 - IM'd [facility] to fill script. Defer to 06/15/2022 for delivery. POM Reason: Insurance mandated Insurance Info: Aetna Medicare Advantage Auth Expirin06/05/2025 Pharmacy/Company: [facility] Phone number: IM biomedical equipment technician [place] Location: [facility] Estimated Delivery Date: 06/15/2022 - [facility] Appointment Date: 06/16/2022 Ordered Date:06/14/2022 Delivery Address: Attn: 6th floor IIP [facility] [address] [place] [address] RX: Eligard Dose: 22.5mg 3 mo Quantity: [...] 4 DX: C61 Prostate Cancer ABEL Cerrato [facility] 06/14/2022, 11:50 AM * Galina Barnett OSA - 06/07/2022 9:47 AM EDT 06/07/2022- Reached out to Alba Iqbal for test claim POM Reason: Insurance Info: Auth Expiring: Pharmacy/Company: Phone number: [place] Location: [facility] Estimated Delivery Date: TBD Appointment Date: Ordered Date: Delivery Address: Attn: 6th floor IIP [facility] [address] [place] [address] RX: Eligard Dose: 22.5mg 3 mo Quantity: [...] 4 DX: C61 Prostate Cancer ABEL Donald [facility] 06/07/2022, 10:14 AM documented in this encounter Plan of Treatment Upcoming Encounters Date Type Department Care Team (Late st Contact Info) Description 03/16/2023 9:30 AM EST Laboratory Laboratory, [address] [place] [address] [facility], Lab [address] [place] [address] 03/16/2023 10:30 AM EST Telemedicine Hematology/Oncology, [facility] [address] [place] [address] Stan Parra MD [address] [place] [address] Cart, Telemed [facility] Hem Onc Clinic [address] [place] [address] 03/16/2023 11:00 AM EST Immunization/Injection Hematology/Oncology Treatment, [address] [address] [facility], Chair1 Hem Onc [address] [place] [address] 04/16/2023 9:30 AM EST Pharmacy Pharmacy Hematology Oncology [facility] [address] [place] [address] [facility], [facility] Hem/Onc [address] [place] [address] 05/03/2023 1:30 PM EST Office Visit Radiation Oncology, [facility] [address] [place] [address] Crescencio Obrien MD [address] [place] [address] 05/31/2023 9:40 AM EDT Office Visit [facility] [place] [address] [facility] [place] [address] BarcelonetaKaz napier III, MD 200 [place] [address] Scheduled Procedures Name Priority Associated Diagnoses Date/Ti [...] Additional history exists Lipid Panel 12/12/2027 12/11/2022, 020 05/2022, 03/21/2021, Additional history exists Pneumococcal Vaccine: [...] the patient have Health Care Power of Wood Gouger? Yes, not currently available Care Teams Tunnel Kiln Firer Relationship Specialty Start Date End Date Evelyn III, Kaz E, MD 200 [facility] [place] [address] PCP - General 10/25/1995 documented as of this encounter"
--- OUTSIDE RECORDS SUMMARY | 2023-05-26 18:11 | External Medical Summary | Summary of Care ---
Author Name Unknown Organization [facility] Address [address] [place] [address] Phone [phone] Care Team Providers Care Social Work Associate Name Role Phone Evelyn FRANZ MD, Kaz Canela Primary Care Provider [phone] Reason for Visit * Reason Comments Medication Management Encounter Details Date Type Department Care Team (Late st Contact Info) Description 02/12/2023 9:30 AM [facility] Pharmacy Pharmacy Hematology Oncology [facility] [address] [place] [address] [facility] Hem/Onc [address] [place] [address] Malignant neoplasm of prostate (HCC)* Allergies Active Allergy Reactions Criticality Noted Date Comments Levofloxacin Muscle pain 02/07/2018 Oxycodone Nausea/vomiting 02/07/2018 documented as of this encounter (statuses as of 02/12/2023) Medications Medication Sig Dispensed Refills Start Date [...] as of this encounter (statuses as of 02/12/2023) Active Problems Problem Noted Date Diagnosed Date [...] as of this encounter (statuses as of 02/12/2023) Resolved Problems Problem Noted Date Diagnosed Date Resolved Date Supraclavicular lymphadenopathy 02/11/2016 01/02/2018 Screening for prostate cancer 04/15/2003 05/20/2008 Overview: Resolved per Screening Diagnosis Protocol #6 Acute cholecystitis 11/25/2002 05/07/19 19 Diaphragmatic hernia 019 documented as of this encounter (statuses as of 02/12/2023) Immunizations Name Administration Dates Next Due COVID-19 [...] this encounter Progress Notes * Renetta Pagan, [facility] - 02/12/2023 11:23 AM EST MEDICATION THERAPY MANAGEMENT ABIRATERONE TREATMENT PROGRESS NOTE Piyush Aponte [phone] Patient Phone Numbers Pref[facility] Lab[facility] Communication: Spoke to: Patient Treatment: Medication: Abiraterone (Zytiga) Indication/Staging/Diagnosis Code: mCSPC / Stage IIIC / C61 Dose: 250mg daily ( 07/17/22) Administration: with food Start Date: 06/05/22 Primary Bilingual Student Tutor/Oncologist: Dr. Parra Additional Therapy: Prednisone 5mg daily Lupron Ondansetron Treatment History: 05/2018: bicalutamide 06/05/18-09/10/20; 05/2022-present: Lupron 08/19/18-10/14/18: RT Interval History: Per OV 07/17/22, pt advised to reduce abiraterone to 250mg daily with breakfast Reports BP < 150/90 No concerns, tolerating therapy well Changes to medication list since last visit? No Assessment and Plan: Follow up labs stable Advised to contact office if BP > 150/90 Continue current therapy and monthly labs (next due with OV) Assessment of compliance: compliant Assessment of adverse effects attributed to drug therapy: Edema/fluid retention - absent HTN - absent Joint swelling or discomfort - absent Arthralgias/Myalgias - absent Diarrhea/Constipation - absent Dose adjustment needed based on lab or adverse drug reaction? No Follow up: 1 month OV/labs; 2 months MTM Renetta Pagan, PharmD, BCOP Clinical Pharmacist, [facility] Oral Chemotherapy [facility] 02/12/2023, 11:26 AM Monitoring Parameters: Estimated CrCl Serum creatinine: 0.9 mg/dL 02/10/23 1056 Estimated creatinine clearance: 81.4 mL/min Hepatitis panel Latest Reference Range & [...] Pertinent labs: Latest Reference Range & Units 12/11/22 08:25 01/11/23 13:38 02/10/23 10:56 Albumin 3.8 - 5.0 g/dL 4.2 4.1 3.9 AST 10 - 50 U/L 20 25 21 ALT 10 - 50 U/L 9 (L) 8 (L) 7 (L) Alkaline Phosphatase 35 - 130 U/L 79 75 72 Bilirubin, Total <=1.2 mg/dL 0.5 0.4 0.4 Time Spent on Encounter: 6 - 10 minutes Encounter Group: Oncology Encounter Interventions Item Category: Oral Chemotherapy Abiraterone Problem/Rationale: Safety: Needs additional monitoring - Medication Requires monitoring Pharmacist Intervention(s): Lab monitoring, Non-pharmacological intervention provided, and Toxicitymonitoring Magnitude of Intervention: Monitoring with direction (Level 1) documented in this encounter Plan of Treatment Upcoming Encounters Date Type Department Care Team (Late st Contact Info) Description 03/16/2023 9:30 AM EST Laboratory Laboratory, [address] [address] [facility], Lab [address] [place] [address] 03/16/2023 10:30 AM EST Telemedicine Hematology/Oncology, [address] [address] Stan Parra MD [address] [place] [address] Cart, Telemed [facility] Hem Onc Clinic [address] [place] [address] 03/16/2023 11:00 AM EST Immunization/Injection Hematology/Oncology Treatment, [facility] 400 [place] [address] [facility], Chair10 Hem Onc [address] [place] [address] 05/03/2023 1:30 PM EST Office Visit Radiation Oncology, [facility] [address] [facility] [address] Crescencio Obrien MD [address] [place] [address] 05/31/2023 9:40 AM EDT Office Visit [facility] 200 [place] [address] Kaz Rivas III, MD 200 [place] [address] Scheduled Procedures Name Priority Associated Diagnoses Date/Ti [...] the patient have Health Care Power of Computer Aided Drafter? Yes, not currently available Care Teams Social Work Associate Relationship Specialty Start Date End Date Kaz Rivas III, MD [address] [place] [address] PCP - General 10/25/1995 documented as of this encounter
--- OUTSIDE RECORDS SUMMARY | 2023-05-26 18:11 | External Medical Summary | Summary of Care ---
Author Name Unknown Organization [facility] Address [address] [place] [address] Phone [phone] Care Team Providers Care Traveling Repair Accountant Name Role Phone Evelyn FRANZ MD, Kaz Canela Primary Care Provider [phone] Reason for Visit * Reason Onset Date Comments Advice 03/15/2023 Encounter Details Date Type Department Care Team (Late st Contact Info) Description 03/15/2023 Telephone Hematology Oncology [facility] [address] [place] [address] Stan Parra MD [address] [place] [address] Advice () Allergies Active Allergy Reactions Criticality Noted Date [...] encounter Miscellaneous Notes * Telephone Encounter - Beverly Connolly, RN - 03/16/2023 8:28 AM EST Looks like [facility] pharmacy is aware. See documentation under patient Assistance. * Telephone Encounter - Tigist Flower OSA - 03/15/2023 4:49 PM EST Ricardo from the [facility] states that the medication,Eligard , is currently on back order and did not ship today. Ricardo states that they will keep trying to order the medication and will call to schedule the delivery once it is ordered. documented in this encounter Plan of Treatment Upcoming Encounters Date Type Department Care Team (Late st Contact Info) Description 03/22/2023 8:50 AM EST Laboratory Laboratory Scenery [facility] [address] [place] [address] [facility] Lab Scenery [address] [place], [place] [address] 03/23/2023 9:30 AM EST Telemedicine Hematology/Oncology, [address] [place] [address] Stan Parra MD [address] [place] [address] Cart, Telemed [facility] [address] [facility] [address] 03/23/2023 10:00 AM EST Immunization/Injection Hematology/Oncology Treatment, [address] [place] [address] [facility], Chair5 Hem Onc [address] [place] [address] 04/16/2023 9:30 AM EST Pharmacy Pharmacy Hematology Oncology [facility] [address] [place] [address] [facility] Hem/Onc [address] [place] [address] 05/03/2023 1:30 PM EST Office Visit Radiation Oncology, [facility] [address] [place] [address] Crescencio Obrien MD [address] [place] [address] 05/31/2023 9:40 AM EDT Office Visit Family Practice [facility] [place] 200 [facility] [place] [address] Kaz Rivas III, MD [address] [place] [address] Scheduled Procedures Name Priority Associated Diagnoses Date/Ti [...] the patient have Health Care Power of Traffic Rate Clerk? Yes, not currently available Care Teams Traveling Repair Accountant Relationship Specialty Start Date End Date Kaz Rivas III, MD [address] [place] [address] PCP - General 10/25/1995 documented as of this encounter
--- OUTSIDE RECORDS SUMMARY | 2023-05-26 18:12 | External Medical Summary | Summary of Care ---
Author Name Unknown Organization [facility] Address [address] [place] [address] Phone [phone] Care Team Providers Care Music Therapist Name Role Phone Evelyn FRANZ MD, Kaz Canela Primary Care Provider [phone] Reason for Visit * Reason Comments Patient Assistance Program Encounter Details Date Type Department Care Team Description 06/07/2022 Documentation Hematology Oncology [facility] ([facility] [address] [place] [address] Stan Parra MD [address] [place] [address] Allergies Active Allergy Reactions Severity Noted Date Comments Levofloxacin Muscle pain 02/07/2018 Oxycodone Nausea/vomiting 02/07/2018 documented as of this encounter (statuses as of 12/12/2022) Medications Medication Sig Dispensed Refills Start Date [...] as of this encounter (statuses as of 12/12/2022) Active Problems Problem Noted Date Compression fracture of body of thoracic vertebra 04/20/2022 Carpal tunnel syndrome, bilateral 2022 Gastroesophageal reflux disease 03/16/19 23 Closed nondisplaced fracture of first cervical vertebra with delayed healing 02/16/2022 Closed fracture of second lumbar vertebr a with routine healing 02/16/2022 History of 2019 novel coronavirus diseas e (COVID-19) 06/14/2020 Pseudogout 02/17/2019 Malignant neoplasm of prostate 9 HTN, goal below 140/90 05/10/2016 Lymphedema of left lower extremity 04/25 Deviated nasal septum 02/11/2016 Special screening for malignant neoplasm s, colon 04/15/2003 Overview: Colonoscopy 03/02/06--hyperplastic polyps--repeat 5 years Family history of other cardiovascular d iseases 04/15/2003 Overview: ICD-10 update of inactive term Dyslipidemia, goal LDL below 130 004 FAM HX-DIABETES MELLITUS 05/30/2001 Reflux esophagitis Dyslipidemia documented as of this encounter (statuses as of 12/12/2022) Resolved Problems Problem Noted Date Resolved Date Supraclavicular lymphadenopathy 02/11/2016 01/02/2018 Screening for prostate cancer 04/15/2003 Overview: Resolved per Screening Diagnosis Protocol #6 Acute cholecystitis 11/25/2002 05/07/2018 Diaphragmatic hernia 05/07/2018 documented as of this encounter (statuses as of 12/12/2022) Immunizations Name Administration Dates Next Due COVID-19 [...] drink = 0.6 oz pur e alcohol) Alcohol Habits Answer Date Recorded How often do you have a drink containing alcohol ? Never 06/13/2018 How many drinks containing a lcohol do you have on a typical day when you are drinking? Not asked How often do you have six or more drinks on one occasion? Not asked Food Insecurity Answer Date Recorded Within the past 12 months, y ou worried that your food would run out before you got money to buy more. Never true 10/02/2021 Within the past 12 months, t he food you bought just didn't last and you didn't have money to get more. 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 Medication ordered. Defer to 12/06/2022 for delivery. POM Reason: Insurance mandated Insurance Info: [employer] Medicare Advantage Auth Expirin06/05/2025 Pharmacy/Company: [facility] Phone number: IM filling technician [place] Location: [facility] Estimated Delivery Date: 12/06/2022 - [facility] Appointment Date: 12/11/2022 Ordered Date: 11/27/2022 Delivery Address: Attn: 6th floor IIP POM [address] [facility] [place] [address] RX: Eligard Dose: 22.5mg 3 mo Quantity: [...] 4 DX: C61 Prostate Cancer ABEL Cerrato [facility] 11/27/2022, 1:19 PM * ABEL Cerrato - 11/20/2022 12:01 PM EDT 11/20/2022 - Defer to 01/27/2023 to order refill. ABEL Cerrato [facility] 11/20/2022, 12:02 PM * ABEL Cerrato - 08/31/2022 10:15 AM EDT 09/08/2022 - Received medication per pharmacy staff. Defer 11/20/2022 for refill. 08/31/2022 - IM'd [facility] for refill. Defer to 09/07/2022 for delivery. POM Reason: Insurance mandated Insurance Info: [employer] Medicare Advantage Auth Expirin06/05/2025 Pharmacy/Company: [facility] Phone number: IM filling technician [place] Location:[facility] Estimated Delivery Date: received 09/07/2022 - [facility] Appointment Date: 09/11/2022 Ordered Date:08/31/2022 Delivery Address:Attn: 6th floor IIP POM [address] [facility] [place] [address] RX:Eligard Dose:22.5mg 3 mo Quantity:1 Manufactured Supplied:No [...] x 4 DX:C61 Prostate Cancer ABEL Cerrato [facility] 08/31/2022, 10:18 AM * ABEL Allison - 06/15/2022 2:56 PM EDT Estimated Delivery Date: Received 06/15/2022 - [facility] * ABEL Cerrato - 06/14/2022 11:44 AM EDT 06/14/2022 - IM'd [facility] to fill script. Defer to 06/15/2022 for delivery. POM Reason: Insurance mandated Insurance Info: [employer] Medicare Advantage Auth Expirin06/05/2025 Pharmacy/Company: [facility] Phone number: IM filling technician [place] Location: [facility] Estimated Delivery Date: 06/15/2022 - P Appointment Date: 06/16/2022 Ordered Date:06/14/2022 Delivery Address: Attn: 6th floor IIP POM [address] [place] [address] RX: Eligard Dose: 22.5mg 3 mo Quantity: [...] 4 DX: C61 Prostate Cancer ABEL Cerrato [facility] 06/14/2022, 11:50 AM * ABEL Donald - 06/07/2022 9:47 AM EDT 06/07/2022- Reached out to Alba Iqbal for test claim POM Reason: Insurance Info: Auth Expiring: Pharmacy/Company: Phone number: [place] Location: [facility] Estimated Delivery Date: TBD Appointment Date: Ordered Date: Delivery Address: Attn: 6th floor IIP POM [address] [place] [address] RX: Eligard Dose: 22.5mg 3 mo Quantity: [...] 4 DX: C61 Prostate Cancer ABEL Donald [facility] 06/07/2022, 10:14 AM documented in this encounter Plan of Treatment Upcoming Encounters Date Type Specialty Care Team Description 12/12/2022 Immunization/Injec tion Hematology Oncology [facility], Chair11 Hem Onc [address] [place] [id number] Malignant neoplasm of prostate (HCC)* 01/09/2023 Pharmacy Pharmacy [facility] Hem/Onc [address] [place] [address] 05/03/2023 Office Visit Radiation Oncology Crescencio Obrien MD [address] [place] [address] 05/31/2023 Office Visit Family Medicine Walker III, Kaz Canela MD [address] [place] [address] [phone] Scheduled Procedures Name Priority Associated Diagnoses Date/Ti me COLONOSCOPY FLEXIBLE PROXIMA L DIAGNOSTIC Recall History of colonic polyps Health Maintenance Due Date Last Done Comments Depression Screening 01/04/2020 01/03/2019 DTaP,Tdap,and Td Vaccines (2 - Td or Tdap) 08/25/2020 08/25/2010 COVID-19 Vaccine ( - 2022- season) 2022 04/06/2021, 05/21/2020, 04/23/2020 Influenza Vaccine (FLU shot) (#1) 2022 01/11/2022, 12/18/2019, 11/22/2018, Additional history exists GFR 12/12/2023 12/11/2022, 10/11, 09/25/2022, Additional history exists Albumin/Creatinine Ratio 10/05/2024 10/05/2021 [...] the patient have Health Care Power of Account Group Supervisor? Yes, not currently available Care Teams Music Therapist Relationship Specialty Start Date End Date Kaz Rivas III, MD [address] [place] [address] PCP - General 10/25/1995 documented as of this encounter"
--- OUTSIDE RECORDS SUMMARY | 2023-05-26 18:12 | External Medical Summary | Summary of Care ---
Author Name Unknown Organization [facility] Address [address] [place] [address] Phone [phone] Care Team Providers Care Rn Managed Care Name Role Phone Evelyn FRANZ MD, Kaz Canela Primary Care Provider [phone] Reason for Visit * Reason Comments Follow Up Encounter Details Date Type Department Care Team Description 12/12/2022 Office Visit Hematology/Oncology, [facility] [address] [place] [address] Yesi Farfan CRNP [address] [place], [place] [phone] Malignant neoplasm of prostate (HCC)* Allergies Active Allergy Reactions Severity Noted Date [...] 08/22/2022 Tamsulosin HCl 0.4 MG Oral Capsule (Flomax)Indication s:in evening Take 1 Capsule by mouth in the morning. 90 Capsule 3 08/09/2022 Active Sucralfate 1 GM Oral Tablet (Carafate)Indicati [...] 1 Tablet by mouth in the morning. With food. 30 Tablet 5 12/12/2022 Active Abiraterone Acetate 250 MG Oral Tablet (Zytiga)Indication s:Malignant neoplasm of prostate (HCC) Take 1 Tablet by mouth in the morning. With food. 30 Tablet 5 11/22/2022 Discontinue d(Refill) documented as of this encounter [...] Sign Reading Time Taken Comments Blood Pressure 139/92 12/12/2022 4:07 PM EDT Pulse 72 12/12/2022 4:07 PM EDT Temperature 36.4 C (97.5 F) 12/12/2022 4:07 PM ED T Respiratory Rate 16 12/12/2022 4:07 PM EDT Oxygen Saturation 97% 12/12/2022 4:07 PM EDT Inhaled Oxygen Concentration - - Weight 92 kg (202 lb 14.4 oz) 12/12/2022 4:07 PM EDT Height - - Body Mass Index 27.52 03/18/2022 3:25 PM EST documented in this encounter Progress Notes * DEB Ansari - 12/12/2022 4:01 PM EDT Images from the original note were not included. Hematology/Oncology Outpatient Clinic note [address] [address] Name: Piyush Aponte Date: 12/12/2022 CHIEF COMPLAINT: Piyush Aponte is a 72 year old male patient here today for f/u visit . He is a patient of Dr. Parra. From Patient chart confirmed history with patient. From Dr. Parra's note 11/06/2022 PCP: Kaz Rivas III, MD Referring provider: Bradley Uriarte Jr., MD Reason for referral: Prostate cancer (HCC) Hematology/Oncology diagnosis: Prostate AWILDA, with some cores showing intraductal histology, Very high risk group, Stage IIIC, [id number], Grade group 5: Derek score 4+5=9, Cores W/ Carcinoma(02/23), PSA = 20.83 (04/30/2018). Biochemical recurrence (12/2021) (PSA: 0.24--> 0.38--> 1.7-->2.03-->2.32--> 2.32-->3.14) [facility] Aortocaval LN + [...] F- Dr. Obrien (06/15/2022- 06/26/2022) Current treatment: Eligard 22.5 mg Q 3 m (06/16/2022- ) ABIRATERONE + PREDNISONE (06/05/22- )---> Zytiga lowered to 250 mg daily with low fat breakfast on 07/17/2022 because of poor tolerance. Chief Complaint Patient presents with Follow Up ECOG: Performance Status 1 = 80-90% Symptoms but nearly ambulatory Interval history: Patient presented today for follow up visit. Patient has been on Zytiga 250 mg p.o. daily since 2022, he reports that these symptoms are good some days. He reports that about every other day he has upper back/ shoulder pain. Rates pain 5/10. Stopped his statin and pain continues. Has not taken a lot of Tylenol for pain but feels like when he does it will help. Overall, he is doing very well. History of present illness (at time of Dr. Parra's initial evaluation on 02/20/2022 ): Piyush Aponte is a 71 year old male who presented to my office accompanied by his to establish care with oncologist for his prostatic adenocarcinoma. Patient [place] away from [facility]. Patient recently fell from a tree, and had compression fracture. He is currently on a brace, and neck collar. In 2018, patient complained of difficulty urination, and weak urinary stream. His PSA on March 07, 2018 was 20.83. 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 He [...] current PET scan findings, and rising PSA. HISTORY OF PRESENT ILLNESS: Piyush Aponte is a 72 year old male with a history as outlined above. Currently here for f/uvisit today. Mr. Aponte states that he is here today for his Eligard. We reviewed recent CT scan and lab work. He is aware that the PSA is trending down. Pt denies fever, chills or night sweats. No headache. Good appetite. No chest pain, cough or shortness of breath. No abdominal pain, cramping, constipation or diarrhea. No difficulty urinating. Continues to have upper back pain on/off. Past Medical History: Diagnosis Date Deviated septum [...] performed by Umair Cook MD at ENDOSCOPY [facility] COLONOSCOPY, DIAGNOSTIC (RECTUM) 08/17/2021 benign polyp, diverticulosis, repeat 5 yrs / COLONOSCOPY FLEXIBLE PROXIMAL DIAGNOSTIC performed by Chavez Abbasi MD at ENDOSCOPY [facility] COLONOSCOPY, GI REFERRAL OP 03/02/2006 hyperplastic polyps--repeat 5 years COLORECTAL CANCER SCREEN;W/FLE 06/05/2001 70 cms wnl DENTAL SURGERY PROCEDURE NEC Dental Surgery Procedure EGD, FLEXIBLE, DIAGNOSTIC 12/22/2011 UPPER GI ENDOSCOPY DIAGNOSTIC performed by Berkley Rosen DO at [facility]COPY [facility] bile reflux and inlet patch INFORMATION 1982 Herniated disc repair KNEE ARTHROSCOPY/MENISCUS REPAIR Left 2013 KNEE ARTHROSCOPY/SURGERY Left 09/23/2020 shave menniscus chondroplasty REMOVE GALLBLADDER 11/17/2002 Cholecystectomy - open [facility] Dr. Gold REMOVE LUMBAR SPINE LAMINA, 3+ SEGS 1981 Lumbar Disk Excision REMOVE TONSILS & ADENOIDS, UNDER 12 Tonsillectomy/Adenoids,<12 Y/O SHOULDER ARTHROSCOPY/DEBRIDEMENT Left 2017 STRESS TREADMILL 2000 wnl TRANSPERINEAL BX OF PROSTATE, STEREOTACTIC N/A 04/30/2018 TRANSPERINEAL BX OF PROSTATE, STEREOTACTIC performed by Vy Tyler MD at OR [facility] UPPER ENDOSCOPY GI REFERRAL OP 03/02/2006 acid reflux--no Rodas's esophagus or H.Pylori Social History Socioeconomic History Marital status: Spouse name: Roxi Number of children: 3 Years of education: 12 Highest education level: Not on file Occupational History 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 Tobacco Use Smoking status: Never Passive exposure: Never Smokeless tobacco: Never Vaping Use Vaping Use: Never used Substance and Sexual Activity Alcohol use: No Drug use: No Sexual activity: Yes Partners: Female Other Topics Concern Service Yes Comment: [employer] Blood Transfusions No Caffeine Concern No Occupational Exposure No Hobby Hazards No Sleep Concern No Stress Concern No Weight Concern No Special Diet No Back Care Yes Comment: Occ LBP, Hx HNP Exercise No Bike Helmet No Seat Belt Yes Self-Exams No Social History Narrative Not on file Social Determinants of Health Financial Resource Strain: Not on file Food Insecurity: Not on file Transportation Needs: Not on file Physical Activity: Not on file Stress: Not on file Social Connections: Not on file Intimate Partner Violence: Not on file Housing Stability: Not on file Review of patient's allergies indicates: Allergen Reactions Levaquin [Levofloxacin] Muscle pain Oxycodone Nausea/vomiting Current Outpatient Medications Medication Sig Dispense Refill [...] With food (Patient not taking: Reported on 08/22/2022) 14 Tablet 1 Ondansetron HCl 8 MG [...] mouth in the morning. 30 Tablet 5 Abiraterone Acetate 250 MG Oral Tablet (Zytiga) Take 1 Tablet by mouth in the morning. With food. 30 Tablet 5 Calcium 600+D Plus Minerals 600-400 MG-UNIT Oral Tablet Chewable Take 2 Tablets by mouth in the morning. 60 Tablet 2 No current facility-administered medications for this visit. REVIEW OF SYSTEMS: Review of Systems Constitutional: Negative for appetite change, chills, diaphoresis, fatigue and fever. HENT: Negative for hearing loss and sore throat. Respiratory: Negative for chest tightness, cough, hemoptysis and shortness of breath. Cardiovascular: Negative for chest pain, leg swelling and palpitations. Gastrointestinal: Negative for abdominal distention, abdominal pain, blood in stool, constipation, diarrhea, nausea and vomiting. Genitourinary: Negative for difficulty urinating, dysuria and frequency. Musculoskeletal: Positive for back pain. Negative for neck pain. Skin: Negative for itching and rash. Neurological: Negative for dizziness, headaches and light-headedness. Psychiatric/Behavioral: Negative for sleep disturbance. OBJECTIVE: Filed Vitals: 12/12/22 1607 BP: 139/92 Pulse: 72 Resp: 16 Temp: 36.4 C (97.5 F) TempSrc: Tympanic SpO2: 97% Weight: 92 kg (202 lb 14.4 oz) Wt Readings from Last 5 Encounters: 12/12/22 92 kg (202 lb 14.4 oz) 11/22/22 92.1 kg (203 lb) 11/06/22 92.1 kg (203 lb 1.6 oz) 09/11/22 93.1 kg (205 lb 4.8 oz) 08/22/22 91.9 kg (202 lb 9.6 oz) PHYSICAL EXAM: ECOG: Performance Status 0 = 100% Normal Activity Pain rated 5/10-upper back VS reviewed General Appearance: Normal - Healthy appearing patient in no acute distress HEENT: Normal - No oral or pharyngeal masses, ulceration or thrush noted, no sinus tenderness Lymph Nodes: Normal - No palpable lymph nodes in the neck or supraclavicular areas Lungs/Thorax: Normal - Clear to auscultation Heart: Normal - Regular rate and rhythm, normal S1, S2, no appreciable murmurs, rubs, gallops Pulses/Extremities: Normal - 2+ throughout and symmetrical, no edema Abdomen: Normal - Soft, nontender, bowel sounds present, no appreciable hepatosplenomegaly, no palpable masses Musculoskeletal: Normal - No pain on palpation over bony prominence, no joint or bony deformity Neurologic: Normal - Grossly intact LABS: Results for orders placed or performed in visit on 12/11/22 COMPREHENSIVE METABOLIC PANEL Result Value Ref Range BUN 19 6 - 20 mg/dL Creatinine 1.0 0.6 - 1.2 mg/dL Estimated Glomerular Filtration Rate 85 >=60 mL/min Sodium 141 135 - 146 mmol/L Potassium 4.1 3.5 - 5.1 mmol/L Chloride 104 98 - 107 mmol/L CO2 29 22 - 32 mmol/L Anion Gap 8 7 - 15 mmol/L Glucose 98 70 - 120 mg/dL Albumin 4.2 3.8 - 5.0 g/dL AST 20 10 - 50 U/L Alkaline Phosphatase 79 35 - 130 U/L Bilirubin, Total 0.5 <=1.2 mg/dL Calcium 9.5 8.4 - 10.2 mg/dL Protein 7.0 6.0 - 8.3 g/dL ALT 9 (L) 10 - 50 U/L LIPID PANEL WITH DIRECT LDL IF TG IS HIGH Result Value Ref Range Triglycerides 60 <=174 mg/dL Cholesterol 196 <200 mg/dL HDL Cholesterol 74 >39 mg/dL Non-HDL Cholesterol 122 <=159 mg/dL LDL Cholesterol 110 <=129 mg/dL PSA Result Value Ref Range PSA 0.04 <4.10 ng/mL CBC Result Value Ref Range WBC 3.81 (L) 4.00 - 10.80 K/uL RBC 4.46 4.50 - 5.25 M/uL HGB 13.7 (L) 14.0 - 16.8 g/dL HCT 41.3 40.0 - 48.4 % MCV 92.6 82.0 - 99.5 fL MCH 30.7 27.0 - 34.0 pg MCHC 33.2 32.0 - 36.0 g/dL RDW 13.5 11.5 - 15.5 % PLT 151 140 - 400 K/uL MPV 10.0 6.6 - 11.1 fL DIFFERENTIAL, AUTOMATED Result Value Ref Range WBC 3.81 (L) 4.00 - 10.80 K/uL Neutrophils % 64.3 40.0 - 75.0 % Lymphocytes % 22.3 18.0 - 42.0 % Monocytes % 10.5 1.0 - 11.0 % Eosinophils % 2.6 0.0 - 6.0 % Basophils % 0.3 0.0 - 2.0 % Absolute Neutrophils 2.45 1.80 - 7.70 K/uL Absolute Lymphocytes 0.85 (L) 1.00 - 4.80 K/ul Absolute Monocytes 0.40 0.00 - 1.10 K/uL Absolute Eosinophils 0.10 0.00 - 0.70 K/uL Absolute Basophils 0.01 0.00 - 0.20 K/uL IMAGIN10/24/22 CT Chest, abd, pelvis Nonspecific 2.1 centimeter hypodensity in the spleen, previously 1.9 centimeters. Previous 14 millimeter inter aortocaval lymph node now measures 6 millimeters. Pathology Review: Assessment: Prostate adenocarcinoma Upper back pain--not improved off statin. He believes it is the Zytiga causing pain . Offered Zytiga holiday-pt declined for now Plan: Better tolerance to Zytiga 250 mg q daily with a low fat breakfast. Will continue same dose for now, following with MTM. PSA responding well, and trending down nicely. CT C/A/P on 10/24/22 showed good response Continue Eligard shot q.3 months. Eligard today Offered imaging of thoracic spine. Try Tylenol 500-1000 mg po BID x 2 weeks, heat application and massage. If no better, call office for imaging. RTC 3 months with MD with psa, cmp, cbc DEB Ansari documented in this encounter Nursing Notes * Heaven Olguin LPN - 12/12/2022 4:09 PM EDT Chief Complaint Patient presents with Follow Up Filed Vitals: 12/12/22 1607 BP: 139/92 Pulse: 72 Resp: 16 Temp: 36.4 C (97.5 F) TempSrc: Tympanic SpO2: 97% Weight: 92 kg (202 lb 14.4 oz) Patient was instructed to not get up on the exam table/exam chair until directed and assisted by their provider; patient is to remain seated in the chair/ wheelchair/ exam table/ exam chair for fall prevention and safety reasons. Patient is aware to have assistance to step down off exam table/exam chair with personnel. Patient voiced full comprehension of instructions. documented in this encounter Plan of Treatment Upcoming Encounters Date Type Specialty Care Team Description 01/09/2023 Pharmacy Pharmacy [facility] Hem/Onc [address] [place] [address] 03/16/2023 Laboratory Laboratory [facility], Lab [address] [place] [address] [phone] 03/16/2023 Telemedicine Hematology Oncology Stan Parra MD [address] [place] [address] Cart, Telemed [facility] Hem Onc Clinic [address] [place] [phone] 03/16/2023 Immunization/Injection Hematology Oncolog y [facility], Chair10 Hem Onc [address] [place] [phone] 05/03/2023 Office Visit Radiation Oncology Crescencio Obrien MD [address] [facility] [place] [address] 05/31/2023 Office Visit Family Medicine [place] III, Kaz Canela MD [address] [place] [phone] Scheduled Procedures Name Priority Associated Diagnoses Date/Ti [...] the patient have Health Care Power of Harness Placer? Yes, not currently available Care Teams Rn Managed Care Relationship Specialty Start Date End Date Evelyn FRANZ, Kaz Canela MD [address] [place] [address] PCP - General 10/25/1995 documented as of this encounter
--- OUTSIDE RECORDS SUMMARY | 2023-05-26 18:12 | External Medical Summary ---
Author Name Unknown Address Unknown Organization K01:[facility] - [address] [place] [address] Laboratory Report Ordering Provider Test Date Status BOB BESSJUNIOR 12/11/2022 08:25:24 Final Observation Date Value Abnormality Reference (Units ) Status PSA 12/11/2022 08:25:24 0.04 <4.10 (ng/ mL) Final Performing Location [facility] - [address] [place] [address]
--- OUTSIDE RECORDS SUMMARY | 2023-05-26 18:12 | External Medical Summary | Summary of Care ---
Author Name Unknown Organization [facility] Address [address] [place] [address] Phone [phone] Care Team Providers Care Coating Mixer Supervisor Name Role Phone Evelyn FRANZ MD, Kaz Canela Primary Care Provider [phone] Reason for Visit * Reason Comments Outpatient Testing Encounter Details Date Type Department Care Team (Late st Contact Info) Description 01/11/2023 1:40 PM EDT Laboratory Laboratory [facility] [place] [address] [place] [phone] [place], Lab Scenery [address] [place] [address] Malignant neoplasm of prostate (HCC) Allergies Active Allergy Reactions Criticality Noted Date Comments Levofloxacin Muscle pain 02/07/2018 Oxycodone Nausea/vomiting 02/07/2018 documented as of this encounter (statuses as of 01/11/2023) Medications Medication Sig Dispensed Refills Start Date [...] as of this encounter (statuses as of 01/11/2023) Active Problems Problem Noted Date Diagnosed Date [...] as of this encounter (statuses as of 01/11/2023) Resolved Problems Problem Noted Date Diagnosed Date Resolved Date Supraclavicular lymphadenopathy 02/11/2016 01/02/2018 Screening for prostate cancer 04/15/2003 05/20/2008 Overview: Resolved per Screening Diagnosis Protocol #6 Acute cholecystitis 11/25/2002 05/07/19 19 Diaphragmatic hernia 019 documented as of this encounter (statuses as of 01/11/2023) Immunizations Name Administration Dates Next Due COVID-19 [...] Care Team (Late st Contact Info) Description 01/16/2023 9:30 AM EST Pharmacy Pharmacy Hematology Oncology [place] [address] [place] [address] Gm, [facility] Hem/Onc [facility] [place] [address] 03/16/2023 9:30 AM EST Laboratory Laboratory, [address] [phone] [facility], Lab [address] [place] [address] 03/16/2023 10:30 AM EST Telemedicine Hematology/Oncology, [address] [address] Stan Parra MD [facility] [place] [address] Cart, Telemed [facility] Hem Onc Clinic [address] [place] [address] 03/16/2023 11:00 AM EST Immunization/Injection Hematology/Oncology Treatment, [address] [address] [facility], Chair10 Hem Onc [address] [place] [address] 05/03/2023 1:30 PM EST Office Visit Radiation Oncology, [facility] [address] [place] [address] Crescencio Obrien MD [address] [place] [address] 05/31/2023 9:40 AM EDT Office Visit Family Practice [facility] [place] 200 [facility] [place] [address] Kaz Rivas III, MD 200 [facility] [place] [address] Pending Results Name Type Priority Associated Diagnoses Date /Time COMPREHENSIVE METABOLIC PANEL Lab STAT Malignant neoplasm of prostate (HCC) 01/11/2023 1:38 PM EDT Scheduled Procedures Name Priority Associated [...] the patient have Health Care Power of Homicide Squad Commanding Officer? Yes, not currently available Care Teams Coating Mixer Supervisor Relationship Specialty Start Date End Date Kaz Rivas III, MD 200 [facility] [place] [place] [address] PCP - General 10/25/1995 documented as of this encounter
--- OUTSIDE RECORDS SUMMARY | 2023-05-26 18:12 | External Medical Summary ---
Author Name Unknown Address Unknown Organization K09:[facility] [address] [place] [address] Laboratory Report Ordering Provider Test Date Status JESÚS BESS 12/11/2022 08:25:24 Final Every two weeks for three mo nths, then every month (patients with moderate hep impairment every week for one month, every two weeks for two months, then every month) Observation Date Value Abnormality Reference (Units ) Status BUN 12/11/2022 08:25:24 19 6-20 (mg/dL) Final Creatinine 12/11/2022 08:25:24 1.0 0.6-1.2 (mg/dL) Final Glomerular filtration rate/1.73 sq M.predicted [Volume Rate/Area] in Serum, Plasma or Blood by Creatinine-based formula (CKD-EPI) 12/11/2022 08:25:24 85 >=60 (mL/min) Final eGFR is calculated based on the CKD-EPI 2020 equation SODIUM 12/11/2022 08:25:24 141 135-146 (m mol/L) Final Potassium 12/11/2022 08:25:24 4.1 3.5-5.1 (m mol/L) Final Cl 12/11/2022 08:25:24 104 98-107 (mm ol/L) Final CO2 12/11/2022 08:25:24 29 22-32 (mmo l/L) Final Anion gap 12/11/2022 08:25:24 8 7-15 (mmol /L) Final Glucose 12/11/2022 08:25:24 98 70-120 (mg /dL) Final Albumin 12/11/2022 08:25:24 4.2 3.8-5.0 (g /dL) Final AST (Aspartate aminotransferase) 12/11/2022 08:25:24 20 10-50 (U/L) Fin al Alk Phos 12/11/2022 08:25:24 79 35-130 (U/ L) Final Bilirubin, Total 12/11/2022 08:25:24 0.5 <=1 .2 (mg/dL) Final Calcium 12/11/2022 08:25:24 9.5 8.4-10.2 ( mg/dL) Final Protein 12/11/2022 08:25:24 7.0 6.0-8.3 (g /dL) Final ALT (Alanine aminotransferase) 12/11/2022 08:25:24 9 Below low normal 10-50 (U/L) Final Performing Location [facility] [address] [place] [address]
--- OUTSIDE RECORDS SUMMARY | 2023-05-26 18:12 | External Medical Summary | Summary of Care ---
Author Name Unknown Organization [facility] Address [address] [place] [address] Phone [phone] Care Team Providers Care Senior Process Engineer Name Role Phone Evelyn FRANZ MD, Kaz Canela Primary Care Provider [phone] Reason for Visit * Reason Comments Medication Administration Eliguard * Episode Based Medications (Routine) - Authorized Specialty Diagnoses / Procedures Referred By Aj pendleton Referred To Contact Diagnoses Malignant neoplasm of prostate (HCC) Procedures NC LEUPROLIDE ACETATE SUSPNSION Stan Parra MD [address] [place] [address] [facility] Hem/Onc [facility] [address] [place] [address] Referral ID Status Reason Start Date Expiration Date V isits Requested Visits Authorized [id number] Authorized 05/23/2022 06/05/2025 999 [id number] Encounter Details Date Type Department Care Team Description 12/12/2022 Immunization/In jection Hematology/Oncology Treatment, [facility] [address] [place] [address] [facility], Chair11 Hem Onc [address] [place] [address] [place] [id number] Malignant neoplasm of prostate (HCC)* Allergies Active Allergy Reactions Severity Noted Date Comments Levofloxacin Muscle pain 02/07/2018 Oxycodone Nausea/vomiting 02/07/2018 documented as of this encounter (statuses as of 12/13/2022) Medications Medication Sig Dispensed Refills Start Date [...] morning. With food. 30 Tablet 5 11/22/2022 3 Discontinue d(Refill) documented as of this encounter (statuses as of 12/13/2022) Active Problems Problem Noted Date Compression fracture [...] as of this encounter (statuses as of 12/13/2022) Resolved Problems Problem Noted Date Resolved Date Supraclavicular lymphadenopathy 02/11/2016 01/02/2018 Screening for prostate cancer 04/15/2003 Overview: Resolved per Screening Diagnosis Protocol #6 Acute cholecystitis 11/25/2002 05/07/2018 Diaphragmatic hernia 05/07/2018 documented as of this encounter (statuses as of 12/13/2022) Immunizations Name Administration Dates Next Due COVID-19 [...] as of this encounter Nursing Notes * Ana Suarez RN - 12/12/2022 5:00 PM EDT Eliguard given in the right abdomen without any difficulty. Patient left IVC by ambulating. Unaccompanied. Voiced no complaints. Ana Suarez RN 12/12/2022 5:00 PM documented in this encounter Plan of Treatment Upcoming Encounters Date Type Specialty Care Team Description 01/09/2023 Pharmacy Pharmacy [facility] Hem/Onc [address] [place] [address] 03/16/2023 Laboratory Laboratory [facility], Lab [address] [place] [id number] 03/16/2023 Telemedicine Hematology Oncology Stan Parra MD [address] [place] [address] Cart, Telemed [facility] Hem Onc Clinic [address] [place] [id number] 03/16/2023 Immunization/Injection Hematology Oncolog y [facility], Chair10 Hem Onc [address] [place] [address] 05/03/2023 Office Visit Radiation Oncology Crescencio Obrien MD [address] [place] [address] 05/31/2023 Office Visit Family Medicine Evelyn III, Kaz Canela MD [address] [place] [address] Scheduled Procedures Name Priority Associated Diagnoses Date/Ti [...] neoplasm of prostate documented in this encounter Administered Medications Inactive Administered Medications - up to 3 most recent administrations Medication Order MAR Action Action Date Dose Rate Site Leuprolide Acetate (3 Month) (Eligard) inj 22.5 mg 22.5 mg, Subcutaneous, ONCE, On 12/12/22 at 1645, For 1 dose Given 12/12/2022 4:37 PM EDT 22.5 mg Abdomen Left Lower documented in this encounter Advance Directives Latest [...] the patient have Health Care Power of Manager Diesel? Yes, not currently available Care Teams Senior Process Engineer Relationship Specialty Start Date End Date Kaz Rivas III, MD [address] [place] [address] PCP - General 10/25/1995 documented as of this encounter
--- OUTSIDE RECORDS SUMMARY | 2023-05-26 18:12 | External Medical Summary ---
Author Name Unknown Address Unknown Organization K01:[facility] - [address] [facility] [address] Laboratory Report Ordering Provider Test Date Status KALEEHAWK III 12/11/2022 08:25:24 Final Observation Date Value Abnormality Reference (Units ) Status Triglyceride 12/11/2022 08:25:24 60 <=174 ( mg/dL) Final Triglyceride Reference Range s (mg/dL):
<150 Acceptable
150-174 Borderline high
175-499 High
>=500 Very high Cholesterol 12/11/2022 08:25:24 196 <200 (mg /dL) Final Total Cholesterol Reference Ranges (mg/dL):
<200 Desirable
200-239 Borderline high
>=240 High HDL 12/11/2022 08:25:24 74 >39 (mg/dL ) Final HDL Cholesterol Reference Ra nges (mg/dL):
>=60 High (Desirable)
<50 Low (Undesirable) For Females
<40 Low (Undesirable) For Males NON-HDL CHOLESTEROL 12/11/2022 08:25:24 122 <=159 (mg/dL) Final Non-HDL Cholesterol Referenc e Range (mg/dL):
<100 Target level for high risk ASCVD patient
<130 Optimal for general population
130-159 Near optimal for general population
160-189 Borderline High
190-219 High
>=220 Very High LDL, (calculated) 12/11/2022 08:25:24 110 <= 129 (mg/dL) Final LDL Cholesterol Reference Ra nges (mg/dL):
<70 Target level for high risk ASCVD patient
<100 Optimal for general population
100-129 Near optimal for general population
130-159 Borderline high
160-189 High
>=190 Very high Performing Location [facility] - [address] [facility] [address]
--- OUTSIDE RECORDS SUMMARY | 2023-05-26 18:12 | External Medical Summary | Summary of Care ---
Author Name Unknown Organization [facility] Address [address] [place] [address] Phone [phone] Care Team Providers Care Dope Heater Name Role Phone Evelyn FRANZ MD, Kaz Canela Primary Care Provider [phone] Reason for Visit * Reason Onset Date Comments Test Results 12/29/2022 Encounter Details Date Type Department Care Team (Late st Contact Info) Description 12/29/2022 Telephone Family Practice [facility] [place] 200 [facility] [place] [address] Kaz Rivas III, MD [address] [place] [address] Test Results Allergies Active Allergy Reactions Criticality Noted Date Comments Levofloxacin Muscle pain 02/07/2018 Oxycodone Nausea/vomiting 02/07/2018 documented as of this encounter (statuses as of 01/09/2023) Medications Medication Sig Dispensed Refills Start Date [...] as of this encounter (statuses as of 01/09/2023) Active Problems Problem Noted Date Diagnosed Date [...] as of this encounter (statuses as of 01/09/2023) Resolved Problems Problem Noted Date Diagnosed Date Resolved Date Supraclavicular lymphadenopathy 02/11/2016 01/02/2018 Screening for prostate cancer 04/15/2003 05/20/2008 Overview: Resolved per Screening Diagnosis Protocol #6 Acute cholecystitis 11/25/2002 05/07/19 19 Diaphragmatic hernia 019 documented as of this encounter (statuses as of 01/09/2023) Immunizations Name Administration Dates Next Due COVID-19 [...] encounter Miscellaneous Notes * Telephone Encounter - Haylee Canela LPN - 01/09/2023 12:23 PM EDT Patient aware and verbalized understanding Will think about medication & get back to us * Telephone Encounter - Ary Hernandez RN - 01/02/2023 10:18 AM EDT ----- Message from Kaz Rivas III, MD sent at 12/11/2022 2:12 PM EDT ----- Call please cholesterol 59 points higher could try the Zetia that we discussed a non statin * Telephone Encounter - Ary Hernandez RN - 01/02/2023 10:15 AM EDT Provider to address: test results Reason for Call: Test Results Contact: Telephone Call Contact Type: Test Results Outcome: No answer on phone. MyG message sent. Total Time including non face to face (minutes): 15 * Telephone Encounter - Haylee Canela LPN - 12/29/2022 10:59 AM EDT Left message for pt to call back. * Telephone Encounter - Haylee Canela LPN - 12/29/2022 10:58 AM EDT ----- Message from Kaz Rivas III, MD sent at 12/11/2022 2:12 PM EDT ----- Call please cholesterol 59 points higher could try the Zetia that we discussed a non statin documented in this encounter Plan of Treatment Upcoming Encounters Date Type Department Care Team (Late st Contact Info) Description 01/16/2023 9:30 AM EST Pharmacy Pharmacy Hematology Oncology [place] [address] [place] [address] [facility] Hem/Onc [address] [place] [address] 03/16/2023 9:30 AM EST Laboratory Laboratory, [address] [phone] [facility], Lab [address] [place] [address] 03/16/2023 10:30 AM EST Telemedicine Hematology/Oncology, [address] [address] Stan Parra MD [address] [place] [address] [place]y, Telemed [facility] Hem Onc Clinic [address] [place] [address] 03/16/2023 11:00 AM EST Immunization/Injection Hematology/Oncology Treatment, [address] [address] [facility], Chair10 Hem Onc [address] [place] [address] 05/03/2023 1:30 PM EST Office Visit Radiation Oncology, [facility] [address] [place] [address] Crescencio Obrien MD [address] [place] [address] 05/31/2023 9:40 AM EDT Office Visit Family Practice [facility] [address] [place] [address] Kaz Rivas III, MD [address] [facility] [place] [address] Scheduled Procedures Name Priority Associated Diagnoses Date/Ti me COLONOSCOPY FLEXIBLE PROXIMA L DIAGNOSTIC Recall History of colonic polyps Health Maintenance Due Date Last Done Comments Depression Screening 01/04/2020 01/03/2019 DTaP,Tdap,and Td Vaccines (2 - Td or Tdap) 08/25/2020 08/25/2010 COVID-19 Vaccine (2022- season) 2022 04/06/2021, 05/21/2020, 04/23/2020 Influenza Vaccine [...] the patient have Health Care Power of Fairing Worker? Yes, not currently available Care Teams Dope Heater Relationship Specialty Start Date End Date Kaz Rivas III, MD [address] [place] [address] PCP - General 10/25/1995 documented as of this encounter
--- OUTSIDE RECORDS SUMMARY | 2023-05-26 18:12 | External Medical Summary | Summary of Care ---
Author Name Unknown Organization [facility] Address [address] [place] [address] Phone [phone] Care Team Providers Care Associate Merchandise Planner Name Role Phone Evelyn FRANZ MD, Kaz Canela Primary Care Provider [phone] Reason for Visit * Reason Comments Patient Assistance Program Encounter Details Date Type Department Care Team Description 06/07/2022 Documentation Hematology Oncology [facility] [address] [place] [address] Stan Parra MD [address] [place] [address] Allergies Active Allergy Reactions Severity Noted Date Comments Levofloxacin Muscle pain 02/07/2018 Oxycodone Nausea/vomiting 02/07/2018 documented as of this encounter (statuses as of 12/06/2022) Medications Medication Sig Dispensed Refills Start Date [...] as of this encounter (statuses as of 12/06/2022) Active Problems Problem Noted Date Compression fracture [...] as of this encounter (statuses as of 12/06/2022) Resolved Problems Problem Noted Date Resolved Date Supraclavicular lymphadenopathy 02/11/2016 01/02/2018 Screening for prostate cancer 04/15/2003 Overview: Resolved per Screening Diagnosis Protocol #6 Acute cholecystitis 11/25/2002 05/07/2018 Diaphragmatic hernia 05/07/2018 documented as of this encounter (statuses as of 12/06/2022) Immunizations Name Administration Dates Next Due COVID-19 mRNA, LNP-s, No Pre serve, 2-Dose Series (Moderna) 05/21/2020,04/23/2020 COVID-19, LNP-s, No Preserve , Rodriguez-sucrose, Ages 12+ (Pfizer) 04/06/2021 Pneumococcal Conjugate Vacc, 13 Valent (Prevnar) 01/12/2016 Pneumococcal Polysaccharide PPV23 (Pneumovax) 01/02/2018 Season Influenza, Quad, PF, Adjuvanted, 65+ Yrs, IM (FLUAD) 12/18/2019 Seasonal Influenza, PF, 6 mo ns & Above, IM , (Flulaval) 11/22/2018,01/02/2018 Seasonal Influenza, Quadriva lent Hd (Fluzone [...] - 12/06/2022 2:21 PM EDT Krysta Lr, commercial real estate sales manager 12/06/2022 13:58 | Received 1 kit of Eligard 12/06/2022 Estimated Delivery Date: Received 12/06/2022-[facility] ABEL Donald [facility] 12/06/2022, 2:21 PM * ABEL Cerrato - 11/27/2022 9:02 AM EDT 11/27/2022 - IM'd [facility] to fill. Medication ordered. Defer to 12/06/2022 for delivery. POM Reason: Insurance mandated Insurance Info: [employer] Medicare Advantage Auth Expirin06/05/2025 Pharmacy/Company: [facility] Phone number: IM histopathology technician [place] Location: [facility] Estimated Delivery Date: 12/06/2022 - [facility] Appointment Date: 12/11/2022 Ordered Date: 11/27/2022 Delivery Address: Attn: 6th floor IIP POM [address] [facility] [place] [address] RX: Eligard Dose: 22.5mg 3 mo Quantity: [...] C61 Prostate Cancer ABEL Cerrato [facility] 11/27/2022, 1:19 PM * ABEL Cerrato - 11/20/2022 12:01 PM EDT 11/20/2022 - Defer to 01/27/2023 to order refill. ABEL Cerrato [facility] 11/20/2022, 12:02 PM * ABEL Cerrato - 08/31/2022 10:15 AM EDT 09/08/2022 - Received medication per pharmacy staff. Defer 11/20/2022 for refill. 08/31/2022 - IM'd [facility] for refill. Defer to 09/07/2022 for delivery. POM Reason: Insurance mandated Insurance Info: [employer] Medicare Advantage Auth Expirin06/05/2025 Pharmacy/Company: [facility] Phone number: IM histopathology technician [place] Location:[facility] Estimated Delivery Date: received 09/07/2022 - [facility] Appointment Date: 09/11/2022 Ordered Date:08/31/2022 Delivery Address:Attn: 6th floor IIP POM [address] [facility] [place] [address] RX:Eligard Dose:22.5mg 3 mo Quantity:1 Manufactured Supplied:No [...] DX:C61 Prostate Cancer ABEL Cerrato [facility] 08/31/2022, 10:18 AM * ABEL Allison - 06/15/2022 2:56 PM EDT Estimated Delivery Date: Received 06/15/2022 - [facility] * ABEL Cerrato - 06/14/2022 11:44 AM EDT 06/14/2022 - IM'd [facility] to fill script. Defer to 06/15/2022 for delivery. POM Reason: Insurance mandated Insurance Info: [employer] Medicare Advantage Auth Expirin06/05/2025 Pharmacy/Company: [facility] Phone number: IM histopathology technician [place] Location: [facility] Estimated Delivery Date: 06/15/2022 - [facility] Appointment Date: 06/16/2022 Ordered Date:06/14/2022 Delivery Address: Attn: 6th floor IIP POM [address] [place] [address] RX: Eligard Dose: 22.5mg 3 mo Quantity: [...] C61 Prostate Cancer ABEL Cerrato [facility] 06/14/2022, 11:50 AM * ABEL Donald - 06/07/2022 9:47 AM EDT 06/07/2022- Reached out to Alba Iqbal for test claim POM Reason: Insurance Info: Auth Expiring: Pharmacy/Company: Phone number: [place] Location: [facility] Estimated Delivery Date: TBD Appointment Date: Ordered Date: Delivery Address: Attn: 6th floor IIP POM [address] [place] [address] RX: Eligard Dose: 22.5mg 3 mo Quantity: [...] C61 Prostate Cancer ABEL Donald [facility] 06/07/2022, 10:14 AM documented in this encounter Plan of Treatment Upcoming Encounters Date Type Specialty Care Team Description 12/11/2022 Laboratory Laboratory [facility], Lab [address] [place], [place] [phone] 12/11/2022 Office Visit Hematology Oncology Yesi Farfan CRNP [address] [place], [place] [phone] 12/11/2022 Immunization/Injection Hematology Oncolog y [facility], Chair1 Hem Onc [address] [facility] [place] [phone] 01/09/2023 Pharmacy Pharmacy [facility] Hem/Onc [address] [place], [place] [phone] 05/03/2023 Office Visit Radiation Oncology Crescencio Obrien MD [address] [place] [address] 05/31/2023 Office Visit Family Medicine Evelyn III, Kaz Canela MD [address] [place] [address] Scheduled Procedures Name Priority Associated Diagnoses Date/Ti me COLONOSCOPY FLEXIBLE PROXIMA L DIAGNOSTIC Recall History of colonic polyps Health Maintenance Due Date Last Done Comments Depression Screening 01/04/2020 01/03/2019 DTaP,Tdap,and Td Vaccines (2 - Td or Tdap) 08/25/2020 08/25/2010 COVID-19 Vaccine (4 - Mixed Product risk series) 06/01/2021 04/06/2021, 05/21/2020, 04/23/2020 Influenza Vaccine (FLU shot) (#1) 2022 01/11/2022, 12/18/2019, 11/22/2018, Additional history exists GFR 11/07/2023 11/06/2022, 09/09, 09/11/2022, Additional history exists Albumin/Creatinine Ratio 10/05/2024 10/05/2021 COLONOSCOPY-EVERY 5 YRS AGES 18-100 08/17/2026 08/17/2021, 08/17/2021, 03/09/2016, Additional history exists Lipid Panel 04/14/2027 04/14/2022, 03/12, 05/21/2020, Additional history exists Pneumococcal Vaccine: 65+ Years [...] the patient have Health Care Power of Quill Picking Machine Operator? Yes, not currently available Care Teams Associate Merchandise Planner Relationship Specialty Start Date End Date Kaz Rivas III, MD [address] [place] [address], [place] [address] PCP - General 10/25/1995 documented as of this encounter"
--- OUTSIDE RECORDS SUMMARY | 2023-05-26 18:12 | External Medical Summary | Summary of Care ---
Author Name Unknown Organization [facility] Address [address] [place] [address] Phone [phone] Care Team Providers Care Channel Manager Name Role Phone Evelyn FRANZ MD, Kaz Canela Primary Care Provider [phone] Reason for Visit * Reason Comments Medication Administration Eliguard * Episode Based Medications (Routine) - Authorized Specialty Diagnoses / Procedures Referred By Aj pendleton Referred To Contact Diagnoses Malignant neoplasm of prostate (HCC) Procedures [place] LEUPROLIDE ACETATE SUSPNSION Stan Parra MD [address] [place] [address] [facility] Hem/Onc [facility] [address] [place] [address] Referral ID Status Reason Start Date Expiration Date V isits Requested Visits Authorized [id number] Authorized 05/23/2022 06/05/2025 999 [id number] Encounter Details Date Type Department Care Team Description 12/12/2022 Immunization/In jection Hematology/Oncology Treatment, [facility] [address] [facility] [place] [address] [facility], Chair11 Hem Onc [address] [place] [address] [place] [id number] Malignant neoplasm of prostate (HCC)* Allergies Active [...] Specialty Care Team Description 01/09/2023 Pharmacy [place] [facility] [place] [facility] Hem[facility]Onc [address] [place] [address] 03/16/[address] [facility], Lab [address] [place] [address] [phone] 03/16/2023 Telemedicine Hematology Oncology Stan Parra MD [address] [place] [address] Cart, Telemed [facility] Hem Onc Clinic [address] [place] [address] [phone] 03/16/2023 Immunization/Injection Hematology Oncolog y [facility], Chair10 Hem Onc [address] [place] [phone] 05/03/2023 Office Visit Radiation Oncology Crescencio Obrien MD [address] [place] [address] 05/31/2023 Office Visit Family Medicine Evelyn III, Kaz Canela MD [address] [place] [address] Scheduled Procedures Name Priority Associated Diagnoses Date/Ti [...] the patient have Health Care Power of Aerospace Control And Warning Systems? Yes, not currently available Care Teams Channel Manager Relationship Specialty Start Date End Date Kaz Rivas III, MD [address] [place] [address] PCP - General 10/25/1995 documented as of this encounter
--- OUTSIDE RECORDS SUMMARY | 2023-05-26 18:12 | External Medical Summary | Summary of Care ---
Author Name Unknown Organization [facility] Address [address] [place] [address] Phone [phone] Care Team Providers Care Magnetizer Name Role Phone Evelyn FRANZ MD, Kaz Canela Primary Care Provider [phone] Encounter Details Date Type Department Care Team Description 12/07/2022 Orders Only Hematology/Oncology, [address] [address] Stan Parra MD [address] [place] [address] Metastatic malignant neoplasm to prostate (HCC)*; Malignant neoplasm of prostate (HCC) Allergies Active Allergy Reactions Severity Noted Date Comments Levofloxacin Muscle pain 02/07/2018 Oxycodone Nausea/vomiting 02/07/2018 documented as of this encounter (statuses as of 12/07/2022) Medications Medication Sig Dispensed Refills Start Date [...] Additional Information Patient not taking.Reported on 08/22/2022 Ondansetron HCl 8 MG Oral TabletIndications:M etastatic [...] the morning. 30 Tablet 5 11/21/2022 Active Abiraterone Acetate 250 MG Oral Tablet (Zytiga)Indications :Malignant neoplasm of prostate (HCC) Take 1 Tablet by mouth in the morning. With food. 30 Tablet 5 11/22/2022 Active Calcium 600+D Plus Minerals 600-400 MG-UNIT Oral Tablet ChewableIndications :Malignant neoplasm of prostate (HCC) Take 2 Tablets by mouth in the morning. 60 Tablet 2 11/22/2022 Active documented as of this encounter (statuses as of 12/07/2022) Active Problems Problem Noted Date Compression fracture [...] as of this encounter (statuses as of 12/07/2022) Resolved Problems Problem Noted Date Resolved Date Supraclavicular lymphadenopathy 02/11/2016 01/02/2018 Screening for prostate cancer 04/15/2003 Overview: Resolved per Screening Diagnosis Protocol #6 Acute cholecystitis 11/25/2002 05/07/2018 Diaphragmatic hernia 05/07/2018 documented as of this encounter (statuses as of 12/07/2022) Immunizations Name Administration Dates Next Due COVID-19 [...] Specialty Care Team Description 12/11/2022 Laboratory Laboratory [facility], Lab [address] [place], [place] [phone] 12/11/2022 Office Visit Hematology Oncology Yesi Farfan CRNP [address] [place], [place] [phone] 12/11/2022 Immunization/Injection Hematology Oncolog y [facility], Chair1 Hem Onc [address] [place], [place] [phone] 01/09/2023 Pharmacy Pharmacy [facility] [place] Hem/Onc [address] [place] [address] 05/03/2023 Office Visit Radiation Oncology Crescencio Obrien MD [address] [place], [place] [phone] 05/31/2023 Office Visit Family Medicine EscambiaKaz napier III, MD [address] [place] [address] Scheduled Orders Name Type Priority Associated Diagnoses Orde r Schedule CBC WITH WBC DIFFERENTIAL Lab STAT Malignant neoplasm of prostate (HCC) Metastatic malignant neoplasm to prostate (HCC) Expected: 12/11/2022, Expires: 12/08/2023 PSA Lab STAT Malignant neoplasm of prostate (HCC) Metastatic malignant neoplasm to prostate (HCC) Expected: 12/11/2022, Expires: 12/08/2023 Scheduled Procedures Name Priority Associated Diagnoses Date/Ti [...] as of this encounter Visit Diagnoses Diagnosis Metastatic malignant neoplasm to prostate (HCC)- Primary Secondary malignant neoplasm of genital organs Malignant neoplasm of prostate (HCC) Malignant neoplasm [...] the patient have Health Care Power of Wind Energy Project Manager? Yes, not currently available Care Teams Magnetizer Relationship Specialty Start Date End Date Evelyn FRANZ, Kaz Canela MD [address] [place], [place] [address] [address] PCP - General 10/25/1995 documented as of this encounter
--- OUTSIDE RECORDS SUMMARY | 2023-05-26 18:12 | External Medical Summary | Summary of Care ---
Author Name Unknown Organization [facility] Address [address] [place] [address] Phone [phone] Care Team Providers Care Case Assistant Name Role Phone Evelyn FRANZ MD, Kaz Canela Primary Care Provider [phone] Reason for Visit * Reason Comments Medication Management Encounter Details Date Type Department Care Team (Late st Contact Info) Description 01/09/2023 9:30 AM EDT Pharmacy Pharmacy Hematology Oncology [facility] [address] [place] [address] [facility] [place], [facility] Hem/Onc [address] [place] [address] Malignant neoplasm of prostate (HCC)* Allergies Active [...] as of this encounter Progress Notes * Caro Silva OSA - 01/09/2023 9:30 AM EDT MEDICATION THERAPY MANAGEMENT ABIRATERONE TREATMENT PROGRESS NOTE Piyush Aponte [id number] Patient Phone Numbers Preferred Lab: [facility] Specialty Pharmacy: [facility] Communication: Left message requesting pt to obtain lab work Treatment: Medication: Abiraterone (Zytiga) Indication/Staging/Diagnosis Code: mCSPC / Stage IIIC / C61 Dose: 250mg daily ( 07/17/22) Administration: with food Start Date: 06/05/22 Primary Digital Print Operator/Oncologist: Dr. Parra Patient will be due for labs for monitoring of Zytiga medication. Left message requesting return call to schedule appointment ABEL Krause Energy Management Specialist Pharmacy Hematology Oncology Oral Chemotherapy Clinic Medication Therapy Disease Management [facility] 01/09/23 8:56 AM Time Spent on Encounter: < 5 minutes Encounter Group: Oncology Encounter Interventions Item Category: Oral Chemotherapy Abiraterone Problem/Rationale: Safety: Needs additional monitoring - Medication Requires monitoring Pharmacist Intervention(s): Lab work requested Magnitude of Intervention: Monitoring with no interventions (Level 0) documented in this encounter Plan of Treatment Upcoming Encounters Date Type Department Care Team (Late st Contact Info) Description 03/16/2023 9:30 AM EST Laboratory Laboratory, [address] [place] [phone] [facility], Lab 400 [facility] [place] [address] 03/16/2023 10:30 AM EST Telemedicine Hematology/Oncology, [address] [address] Stan Parra MD [address] [place] [address] Cart, Telemed [facility] Hem Onc Clinic [address] [place] [address] 03/16/2023 11:00 AM EST Immunization/Injection Hematology/Oncology Treatment, [facility] [address] [place] [address] [facility], Chair10 Hem Onc [address] [place] [address] 05/03/2023 1:30 PM EST Office Visit Radiation Oncology, [facility] [address] [place] [address] Crescencio Obrien MD [address] [place] [address] 05/31/2023 9:40 AM EDT Office Visit Family Practice [facility] [address] [place] [address] Kaz Rivas III, MD [address] [place] [address] Scheduled Procedures Name Priority Associated Diagnoses Date/Ti [...] the patient have Health Care Power of Mechanical Door Repairer? Yes, not currently available Care Teams Case Assistant Relationship Specialty Start Date End Date Kaz Rivas III, MD [address] [place] [address] PCP - General 10/25/1995 documented as of this encounter
--- OUTSIDE RECORDS SUMMARY | 2023-05-26 18:12 | External Medical Summary | Summary of Care ---
Author Name Unknown Organization [facility] Address [address] [place] [address] Phone [phone] Care Team Providers Care Intensivist Name Role Phone Evelyn FRANZ MD, Kaz Canela Primary Care Provider [phone] Reason for Visit * Reason Comments Medication Management Encounter Details Date Type Department Care Team (Late st Contact Info) Description 01/09/2023 9:30 AM EDT Pharmacy Pharmacy Hematology Oncology [facility] [address] [place] [address] [facility] [place], [facility] Hem/Onc [address] [place] [address] Malignant neoplasm of prostate (HCC)* Allergies Active Allergy Reactions Criticality Noted Date Comments Levofloxacin Muscle pain 02/07/2018 Oxycodone Nausea/vomiting 02/07/2018 documented as of this encounter (statuses as of 01/10/2023) Medications Medication Sig Dispensed Refills Start Date [...] as of this encounter (statuses as of 01/10/2023) Active Problems Problem Noted Date Diagnosed Date [...] as of this encounter (statuses as of 01/10/2023) Resolved Problems Problem Noted Date Diagnosed Date Resolved Date Supraclavicular lymphadenopathy 02/11/2016 01/02/2018 Screening for prostate cancer 04/15/2003 05/20/2008 Overview: Resolved per Screening Diagnosis Protocol #6 Acute cholecystitis 11/25/2002 05/07/19 19 Diaphragmatic hernia 019 documented as of this encounter (statuses as of 01/10/2023) Immunizations Name Administration Dates Next Due COVID-19 [...] Progress Notes * Caro Silva OSA - 01/10/2023 3:15 PM EDT Patient returned my lab reminder call from yesterday. He will go for labs via walk in, in the next few days. ABEL Krause Apn Pharmacy Hematology Oncology Oral Chemotherapy Clinic Medication Therapy Disease Management [facility] 01/10/23 3:15 PM Time Spent on Encounter: 6 - 10 minutes * Caro Silva OSA - 01/09/2023 9:30 AM EDT MEDICATION THERAPY MANAGEMENT ABIRATERONE TREATMENT PROGRESS NOTE Piyush López Fadi [id number] Patient Phone Numbers Preferred Lab: [facility] Specialty Pharmacy: [facility] Communication: Left message requesting pt to obtain lab work Treatment: Medication: Abiraterone (Zytiga) Indication/Staging/Diagnosis Code: P[facility] campusPC / Stage IIIC / C61 Dose: 250mg daily ( 07/17/22) Administration: with food Start Date: 06/05/22 Primary Wood Tank Erector/Oncologist: Dr. Parra Patient will be due for labs for monitoring of Zytiga medication. Left message requesting return call to schedule appointment ABEL Krause Apn Pharmacy Hematology Oncology Oral Chemotherapy Clinic Medication Therapy Disease Management [facility] 01/09/23 8:56 AM Time Spent on Encounter: [...] 9:30 AM EST Pharmacy Pharmacy Hematology Oncology [facility] [address] [place] [address] [facility], [facility] Hem/Onc [address] [place] [address] 03/16/2023 9:30 AM EST Laboratory Laboratory, [address] [phone] [facility], Lab [address] [place] [address] 03/16/2023 10:30 AM EST Telemedicine Hematology/Oncology, [address] [address] Stan Parra MD [address] [place] [address] Cart, Telemed [facility] Hem Onc Clinic [address] [place] [address] 03/16/2023 11:00 AM EST Immunization/Injection Hematology/Oncology Treatment, [address] [facility], Chair10 Hem Onc [address] [place] [address] 05/03/2023 1:30 PM EST Office Visit Radiation Oncology, [facility] [address] [place] [address] Crescencio Obrien MD [address] [place] [address] 05/31/2023 9:40 AM EDT [facility] [place] [address] [place] [address] EvelynKaz napier III, MD [address] [place] [address] Scheduled Procedures Name Priority Associated Diagnoses Date/Ti [...] the patient have Health Care Power of Oil Expeller Operator? Yes, not currently available Care Teams Intensivist Relationship Specialty Start Date End Date Kaz Rivas III, MD [address] [place] [address] PCP - General 10/25/1995 documented as of this encounter
--- OUTSIDE RECORDS SUMMARY | 2023-05-26 18:12 | External Medical Summary | Summary of Care ---
Author Name Unknown Organization [facility] Address [address] [place] [address] Phone [phone] Care Team Providers Care Consumer Insight Analyst Name Role Phone Evelyn FRANZ MD, Kaz Canela Primary Care Provider [phone] Reason for Visit * Reason Comments Outpatient Testing Encounter Details Date Type Department Care Team Description 12/11/2022 Laboratory Laboratory [facility] [address] [place] [phone] [facility] Lab Scenery [address] [place] [id number] Malignant neoplasm of prostate (HCC); Dyslipidemia; Metastatic malignant neoplasm to prostate (HCC) Allergies Active Allergy Reactions Severity Noted Date Comments Levofloxacin Muscle pain 02/07/2018 Oxycodone Nausea/vomiting 02/07/2018 documented as of this encounter (statuses as of 12/11/2022) Medications Medication Sig Dispensed Refills Start Date [...] as of this encounter (statuses as of 12/11/2022) Active Problems Problem Noted Date Compression fracture [...] as of this encounter (statuses as of 12/11/2022) Resolved Problems Problem Noted Date Resolved Date Supraclavicular lymphadenopathy 02/11/2016 01/02/2018 Screening for prostate cancer 04/15/2003 Overview: Resolved per Screening Diagnosis Protocol #6 Acute cholecystitis 11/25/2002 05/07/2018 Diaphragmatic hernia 05/07/2018 documented as of this encounter (statuses as of 12/11/2022) Immunizations Name Administration Dates Next Due COVID-19 [...] Date Type Specialty Care Team Description 12/11/2022 Office Visit Hematology Oncology Yesi Farfan CRNP [address] [place], [place] [phone] 12/11/2022 Immunization/Injecti o n Hematology Oncology [facility], Chair1 Hem Onc [address] [place], [place] [phone] 01/09/2023 Pharmacy Pharmacy [facility] Hem/Onc [address] [place], [place] [phone] 05/03/2023 Office Visit Radiation Oncology Crescencio Obrien MD [address] [place] [address] 05/31/2023 Office Visit Family Medicine Evelyn III, Kaz Canela MD [address] [place] [address] Pending Results Name Type Priority Associated Diagnoses Date /Time COMPREHENSIVE METABOLIC PANEL Lab STAT Malignant neoplasm of prostate (HCC) 12/11/2022 8:25 AM EDT LIPID PANEL WITH DIRECT LDL IF TG IS HIGH Lab Routine Dyslipidemia 12/11/2022 8:25 AM EDT PSA Lab STAT Malignant neoplasm of prostate (HCC) Metastatic malignant neoplasm to prostate (HCC) 12/11/2022 8:25 AM EDT Scheduled Procedures Name Priority Associated Diagnoses [...] Date/Time Associated Diagnosis Comments DIFFERENTIAL, AUTOMATED STAT 12/11/2022 8:25 AM EDT Malignant neoplasm of prostate (HCC) Metastatic malignant neoplasm to prostate (HCC) CBC STAT 12/11/2022 8:25 AM EDT Malignant neoplasm of prostate (HCC) Metastatic malignant neoplasm to prostate (HCC) CBC STAT 12/11/2022 8:25 AM EDT Malignant neoplasm of prostate (HCC) Metastatic malignant neoplasm to prostate (HCC) documented in this encounter Results * (ABNORMAL) DIFFERENTIAL, AUTOMATED (12/11/2022 8:25 AM EDT) WBC 3.81(L) 4.00 - 10.80 K/uL 12/11/2022 8:31 AM EDT [facility] 56-02 Neutrophils % 64.3 40.0 - 75.0 % 12/11/2022 8:31 AM EDT [facility] 56-02 Lymphocytes % 22.3 18.0 - 42.0 % 12/11/2022 8:31 AM EDT [facility] 56 Monocytes % 10.5 1.0 - 11.0 % 12/11/2022 8:31 AM EDT [facility] 56 Eosinophils % 2.6 0.0 - 6.0 % 12/11/2022 8:31 AM EDT [facility] 56 Basophils % 0.3 0.0 - 2.0 % 12/11/2022 8:31 AM EDT [facility] 56 Absolute Neutrophils 2.45 1.80 - 7.70 K/uL 12/11/2022 8:31 AM EDT [facility] 56 Absolute Lymphocytes 0.85(L) 1.00 - 4.80 K/ul 12/11/2022 8:31 AM EDT [facility] Absolute Monocytes 0.40 0.00 - 1.10 K/uL 12/11/2022 8:31 AM EDT [facility] Absolute Eosinophils 0.10 0.00 - 0.70 K/uL 12/11/2022 8:31 AM EDT [facility] Absolute Basophils 0.01 0.00 - 0.20 K/uL 12/11/2022 8:31 AM EDT [facility] Blood Venous blood specimen / Unknown Venipuncture / Unknown 12/11/2022 8:25 AM EDT 12/11/2022 8:25 AM EDT Stan Parra MD LAB BLOOD O RDERABLES [facility] [address] [place] [address] * (ABNORMAL) CBC (12/11/2022 8:25 AM EDT) WBC 3.81(L) 4.00 - 10.80 K/uL 12/11/2022 8:31 AM EDT [facility] RBC 4.46 4.50 - 5.25 M/uL 12/11/2022 8:31 AM EDT [facility] HGB 13.7(L) 14.0 - 16.8 g/dL 12/11/2022 8:31 AM EDT [facility] 56 HCT 41.3 40.0 - 48.4 % 12/11/2022 8:31 AM EDT [facility] 56 MCV 92.6 82.0 - 99.5 fL 12/11/2022 8:31 AM EDT [facility] 56 MCH 30.7 27.0 - 34.0 pg 12/11/2022 8:31 AM EDT [place] [address] MCHC 33.2 32.0 - 36.0 g/dL 12/11/2022 8:31 AM EDT [facility] 56 RDW 13.5 11.5 - 15.5 % 12/11/2022 8:31 AM EDT [place] [address] PLT 151 140 - 400 K/uL 12/11/2022 8:31 AM T [place] [address] MPV 10.0 6.6 - 11.1 fL 12/11/2022 8:31 AM T [facility] 56 Blood Venous blood specimen / Unknown Venipuncture / Unknown 12/11/2022 8:25 AM EDT 12/11/2022 8:25 AM EDT Stan Parra MD LAB BLOOD O RDERABLES [facility] [address] [facility] [address] documented in this encounter Visit Diagnoses Diagnosis Malignant neoplasm of prostate (HCC) Malignant neoplasm of prostate Dyslipidemia Other and unspecified hyperlipidemia Metastatic malignant neoplasm to prostate (HCC) Secondary [...] the patient have Health Care Power of Chemical Engraver? Yes, not currently available Care Teams Consumer Insight Analyst Relationship Specialty Start Date End Date Kaz Rivas III, MD [address] [facility] [address] PCP - General 10/25/1995 documented as of this encounter
--- OUTSIDE RECORDS SUMMARY | 2023-05-26 18:12 | External Medical Summary ---
Author Name Unknown Address Unknown Organization K09:[facility] [place] [address] Laboratory Report Ordering Provider Test Date Status JESÚS BESS 12/11/2022 08:25:24 Final Observation Date Value Abnormality Reference (Units ) Status SYNC LEUKOCYTES IN BLOOD BY AUTOMATED COUNT 12/11/2022 08:25:24 3.81 Below low normal 4.00-10.80 (K/uL) Final Segs 12/11/2022 08:25:24 64.3 40.0-75.0 (%) Final Lymphs % 12/11/2022 08:25:24 22.3 18.0-42.0 (%) Final Monos 12/11/2022 08:25:24 10.5 1.0-11.0 (%) Final Eosinophils 12/11/2022 08:25:24 2.6 0.0-6.0 (%) Final Basos 12/11/2022 08:25:24 0.3 0.0-2.0 (%) Final Absolute Segs 12/11/2022 08:25:24 2.45 1.80-7.70 (K/uL) Final Lymphs, absolute 12/11/2022 08:25:24 0.85 Below low normal 1.00-4.80 (K/ul) Final Monos, Abs 12/11/2022 08:25:24 0.40 0.00-1.10 (K/uL) Final Eos, Abs 12/11/2022 08:25:24 0.10 0.00-0.70 (K/uL) Final Basos, Abs 12/11/2022 08:25:24 0.01 0.00-0.20 (K/uL) Final Performing Location [facility] [place] [address]
--- OUTSIDE RECORDS SUMMARY | 2023-05-26 18:12 | External Medical Summary | Summary of Care ---
Author Name Unknown Organization [facility] Address [address] [place] [address] Phone [phone] Care Team Providers Care Ship Carpenter Name Role Phone Evelyn FRANZ MD, Kaz Canela Primary Care Provider [phone] Reason for Visit * Reason Onset Date Comments Advice 09/29/2022 Fidel Encounter Details Date Type Department Care Team Description 09/29/2022 Telephone Access Center, [place] [address] [facility] *DO NOT REMOVE THIS DEPARTMENT* [place] [phone] Services, Scheduling [address] [place] [address] Advice (Fidel ) Allergies Active Allergy Reactions Severity Noted Date Comments Levofloxacin Muscle pain 02/07/2018 Oxycodone Nausea/vomiting 02/07/2018 documented as of this encounter (statuses as of 12/29/2022) Medications Medication Sig Dispensed Refills Start Date [...] IN WATER 120 Tablet 5 08/22/2022 Active documented as of this encounter (statuses as of 12/29/2022) Active Problems Problem Noted Date Compression fracture [...] as of this encounter (statuses as of 12/29/2022) Resolved Problems Problem Noted Date Resolved Date Supraclavicular lymphadenopathy 02/11/2016 01/02/2018 Screening for prostate cancer 04/15/2003 Overview: Resolved per Screening Diagnosis Protocol #6 Acute cholecystitis 11/25/2002 05/07/2018 Diaphragmatic hernia 05/07/2018 documented as of this encounter (statuses as of 12/29/2022) Immunizations Name Administration Dates Next Due COVID-19 [...] Telephone Encounter - Jennifer Rocha LPN - 09/29/2022 11:11 AM EDT Called and spoke to someone from [facility] This is given q3m and he had it 09/11 She is aware and will make a note. * Telephone Encounter - ABEL Bello - 09/29/2022 10:06 AM EDT Neo from pharmacy calling asking if patient ready for elligard medication to be sent to office. Please call neo back and let her know. Thank you documented in this encounter Plan of Treatment Upcoming Encounters Date Type Specialty Care Team Description 01/09/2023 Pharmacy Pharmacy [facility] [address] [facility] [place] [address] 03/16/2023 Laboratory Laboratory [facility] [address] [facility] [address] 03/16/2023 Telemedicine Hematology Oncology Stan Parra MD [address] [place] [address] Cart, Telemed [facility] Hem Onc Clinic [address] [place] [address] 03/16/2023 Immunization/Injection Hematology Oncolog y [facility], Chair10 Hem Onc [address] [place] [phone] 05/03/2023 Office Visit Radiation Oncology Crescencio Obrien MD [address] [place] [address] 05/31/2023 Office Visit Family Medicine Denali III, Kaz Canela MD [address] [place] [address] [phone] Scheduled Procedures Name Priority Associated Diagnoses Date/Ti [...] the patient have Health Care Power of Campus Administrative Assistant? Yes, not currently available Care Teams Ship Carpenter Relationship Specialty Start Date End Date Kaz Rivas III, MD [address] [place] [address] PCP - General 10/25/1995 documented as of this encounter
--- OUTSIDE RECORDS SUMMARY | 2023-05-26 18:12 | External Medical Summary | Summary of Care ---
Author Name Unknown Organization [facility] Address [address] [place] [address] Phone [phone] Care Team Providers Care Driver Helper Name Role Phone Evelyn FRANZ MD, Kaz Canela Primary Care Provider [phone] [phone] Reason for Visit * Reason Comments Medication Management Encounter Details Date Type Department Care Team (Late st Contact Info) Description 01/16/2023 9:30 AM [facility] Pharm[facility] Pharmacy Hematology Oncology [facility] [address] [place] [address] [facility], [facility] Hem/Onc [address] [place] [address] Malignant neoplasm of prostate (HCC)* Allergies Active Allergy Reactions Criticality Noted Date Comments Levofloxacin Muscle pain 02/07/2018 Oxycodone Nausea/vomiting 02/07/2018 documented as of this encounter (statuses as of 01/16/2023) Medications Medication Sig Dispensed Refills Start Date [...] as of this encounter (statuses as of 01/16/2023) Active Problems Problem Noted Date Diagnosed Date [...] as of this encounter (statuses as of 01/16/2023) Resolved Problems Problem Noted Date Diagnosed Date Resolved Date Supraclavicular lymphadenopathy 02/11/2016 01/02/2018 Screening for prostate cancer 04/15/2003 05/20/2008 Overview: Resolved per Screening Diagnosis Protocol #6 Acute cholecystitis 11/25/2002 05/07/19 19 Diaphragmatic hernia 019 documented as of this encounter (statuses as of 01/16/2023) Immunizations Name Administration Dates Next Due COVID-19 [...] this encounter Progress Notes * Renetta Pagan, [facility] - 01/16/2023 10:45 AM EST MEDICATION THERAPY MANAGEMENT ABIRATERONE TREATMENT PROGRESS NOTE Piyush Aponte [id number] Patient Phone Numbers Preferred Lab: [facility] Communication: Left message requesting return call to assess toleration to therapy Treatment: Medication: Abiraterone (Zytiga) Indication/Staging/Diagnosis Code: mCSPC / Stage IIIC / C61 Dose: 250mg daily ( 07/17/22) Administration: with food Start Date: 06/05/22 Primary Pocket Builder/Oncologist: Dr. Parra Additional Therapy: Prednisone 5mg daily Lupron Ondansetron Treatment History: 05/2018: bicalutamide 06/05/18-09/10/20; 05/2022-present: Lupron 08/19/18-10/14/18: RT Interval History: Per OV 07/17/22, pt advised to reduce abiraterone to 250mg daily with breakfast Changes to medication list since last visit? No Assessment and Plan: Follow up labs stable Continue current therapy and monthly labs Assessment of compliance: N/A Assessment of adverse effects attributed to drug therapy: N/A Dose adjustment needed based on lab or adverse drug reaction? No Follow up: 1 month Renetta Pagan, PharmD, BCOP Clinical Pharmacist, [facility] Oral Chemotherapy [facility] 01/16/2023, 10:51 AM Monitoring Parameters: Estimated CrCl Serum creatinine: 0.9 mg/dL 01/11/23 1338 Estimated creatinine clearance: 81.4 mL/min Hepatitis panel [...] Pertinent labs: Latest Reference Range & Units 11/06/22 09:36 12/11/22 08:25 01/11/23 13:38 Albumin 3.8 - 5.0 g/dL 3.8 4.2 4.1 AST 10 - 50 U/L 23 20 25 ALT 10 - 50 U/L 10 9 (L) 8 (L) Alkaline Phosphatase 35 - 130 U/L 74 79 75 Bilirubin, Total <=1.2 mg/dL 0.4 0.5 0.4 Time Spent on Encounter: 6 - [...] Description 03/16/2023 9:30 AM EST Laboratory Laboratory, [address] [id number] [facility], Lab [address] [place] [address] 03/16/2023 10:30 AM EST Telemedicine Hematology/Oncology, [address] [address] Stan Parra MD [address] [place] [address] [facility] Hem Onc Clinic [address] [place] [address] 03/16/2023 11:00 AM EST Immunization/Injection Hematology/Oncology Treatment, [address] [address] [facility], Chair10 Hem Onc [address] [place] [address] 05/03/2023 1:30 PM EST Office Visit Radiation Oncology, [facility] [address] [place] [address] Crescencio Obrien MD [address] [place] [address] 05/31/2023 9:40 AM EDT Office Visit Family Practice [facility] [place] [address] [facility] [place] [place] [address] Kaz Rivas III, MD [address] [place] [address] Scheduled Procedures Name Priority Associated Diagnoses Date/Ti [...] the patient have Health Care Power of Collection Systems Worker? Yes, not currently available Care Teams Driver Helper Relationship Specialty Start Date End Date Kaz Rivas III, MD [address] [place] [address] PCP - General 10/25/1995 documented as of this encounter
--- OUTSIDE RECORDS SUMMARY | 2023-05-26 18:12 | External Medical Summary ---
Author Name Unknown Address Unknown Organization K09:[facility] [address] [place] [address] Laboratory Report Ordering Provider Test Date Status JESÚS BESS 01/11/2023 13:38:12 Final Every two weeks for three mo nths, then every month (patients with moderate hep impairment every week for one month, every two weeks for two months, then every month) Observation Date Value Abnormality Reference (Units ) Status BUN 01/11/2023 13:38:12 12 6-20 (mg/dL) Final Creatinine 01/11/2023 13:38:12 0.9 0.6-1.2 (mg/dL) Final Glomerular filtration rate/1.73 sq M.predicted [Volume Rate/Area] in Serum, Plasma or Blood by Creatinine-based formula (CKD-EPI) 01/11/2023 13:38:12 >90 >=60 (mL/min) Final eGFR is calculated based on the CKD-EPI 2020 equation SODIUM 01/11/2023 13:38:12 141 135-146 (m mol/L) Final Potassium 01/11/2023 13:38:12 4.3 3.5-5.1 (m mol/L) Final Cl 01/11/2023 13:38:12 105 98-107 (mm ol/L) Final CO2 01/11/2023 13:38:12 29 22-32 (mmo l/L) Final Anion gap 01/11/2023 13:38:12 7 7-15 (mmol /L) Final Glucose 01/11/2023 13:38:12 141 Above high normal 70 -120 (mg/dL) Final Albumin 01/11/2023 13:38:12 4.1 3.8-5.0 (g /dL) Final AST (Aspartate aminotransferase) 01/11/2023 13:38:12 25 10-50 (U/L) Fin al Alk Phos 01/11/2023 13:38:12 75 35-130 (U/ L) Final Bilirubin, Total 01/11/2023 13:38:12 0.4 <=1 .2 (mg/dL) Final Calcium 01/11/2023 13:38:12 9.6 8.4-10.2 ( mg/dL) Final Protein 01/11/2023 13:38:12 6.9 6.0-8.3 (g /dL) Final ALT (Alanine aminotransferase) 01/11/2023 13:38:12 8 Below low normal 10-50 (U/L) Final Performing Location [facility] [address] [place] [address]
--- OUTSIDE RECORDS SUMMARY | 2023-05-26 18:12 | External Medical Summary ---
Author Name Unknown Address Unknown Organization K09[facility] [place] [address] Laboratory Report Ordering Provider Test Date Status JESÚS BESS 12/11/2022 08:25:24 Final Observation Date Value Abnormality Reference (Units ) Status WBC, Total 12/11/2022 08:25:24 3.81 Below low normal 4. 00-10.80 (K/uL) Final RBC 12/11/2022 08:25:24 4.46 4.50-5.25 (M/uL) Final Hemoglobin 12/11/2022 08:25:24 13.7 Below low normal 14 .0-16.8 (g/dL) Final HCT 12/11/2022 08:25:24 41.3 40.0-48.4 (%) Final MCV 12/11/2022 08:25:24 92.6 82.0-99.5 (fL) Final MCH 12/11/2022 08:25:24 30.7 27.0-34.0 (pg) Final MCHC 12/11/2022 08:25:24 33.2 32.0-36.0 (g/dL) Final RDW 12/11/2022 08:25:24 13.5 11.5-15.5 (%) Final Platelets 12/11/2022 08:25:24 151 140-400 (K /uL) Final MPV 12/11/2022 08:25:24 10.0 6.6-11.1 ( fL) Final Performing Location [facility] [place] [address]
--- OUTSIDE RECORDS SUMMARY | 2023-05-26 18:13 | External Medical Summary | Summary of Care ---
Author Name Unknown Organization [facility] Address [address] [place] [address] Phone [phone] Care Team Providers Care Viscosity Tester Name Role Phone Evelyn FRANZ MD, Kaz Canela Primary Care Provider [phone] Reason for Visit * Reason Comments Patient Assistance Program Encounter Details Date Type Department Care Team Description 06/07/2022 Documentation Hematology Oncology [facility] [address] [place] [address] Stan Parra MD [address] [place] [address] Allergies Active Allergy Reactions Severity Noted Date Comments Levofloxacin Muscle pain 02/07/2018 Oxycodone Nausea/vomiting 02/07/2018 documented as of this encounter (statuses as of 11/27/2022) Medications Medication Sig Dispensed Refills Start Date [...] as of this encounter (statuses as of 11/27/2022) Active Problems Problem Noted Date Compression fracture [...] as of this encounter (statuses as of 11/27/2022) Resolved Problems Problem Noted Date Resolved Date Supraclavicular lymphadenopathy 02/11/2016 01/02/2018 Screening for prostate cancer 04/15/2003 Overview: Resolved per Screening Diagnosis Protocol #6 Acute cholecystitis 11/25/2002 05/07/2018 Diaphragmatic hernia 05/07/2018 documented as of this encounter (statuses as of 11/27/2022) Immunizations Name Administration Dates Next Due COVID-19 [...] this encounter Progress Notes * Mary Jo Gar, ABEL - 11/27/2022 9:02 AM EDT 11/27/2022 - IM'd [facility] to fill. Medication ordered. Defer to 12/06/2022 for delivery. POM Reason: Insurance mandated Insurance Info: A[employer]na Medicare Advantage Auth Expirin06/05/2025 Pharmacy/Company: [facility] Phone number: MARS data acquisition technician [place] Location: [facility] Estimated Delivery Date: 12/06/2022 - [facility] Appointment Date: 12/11/2022 Ordered Date: 11/27/2022 Delivery Address: Attn: 6th floor IIP POM [address] [place] [address] RX: Eligard Dose: 22.5mg 3 mo Quantity: [...] DX: C61 Prostate Cancer ABEL Cerrato [facility] 11/27/2022, 1:19 PM * ABEL Cerrato - 11/20/2022 12:01 PM EDT 11/20/2022 - Defer to 01/27/2023 to order refill. ABEL Cerrato [facility] 11/20/2022, 12:02 PM * ABEL Cerrato - 08/31/2022 10:15 AM EDT 09/08/2022 - Received medication per pharmacy staff. Defer 11/20/2022 for refill. 08/31/2022 - IM'd [facility] for refill. Defer to 09/07/2022 for delivery. POM Reason: Insurance mandated Insurance Info: Aetna Medicare Advantage Auth Expirin06/05/2025 Pharmacy/Company: [facility] Phone number: IM data acquisition technician [place] Location:[facility] Estimated Delivery Date: received 09/07/2022 - [facility] Appointment Date: 09/11/2022 Ordered Date:08/31/2022 Delivery Address:Attn: 6th floor IIP POM [address] [place] [place] [address] RX:Eligard Dose:22.5mg 3 mo Quantity:1 Manufactured Supplied:No [...] 4 DX:C61 Prostate Cancer ABEL Cerrato [facility] 08/31/2022, 10:18 AM * AEBL Allison - 06/15/2022 2:56 PM EDT Estimated Delivery Date: Received 06/15/2022 - [facility] * ABEL Cerrato - 06/14/2022 11:44 AM EDT 06/14/2022 - IM'd [facility] to fill script. Defer to 06/15/2022 for delivery. POM Reason: Insurance mandated Insurance Info: A[employer]na Medicare Advantage Auth Expirin06/05/2025 Pharmacy/Company: [facility] Phone number: IM data acquisition technician [place] Location: [facility] Estimated Delivery Date: 06/15/2022 - [facility] Appointment Date: 06/16/2022 Ordered Date:06/14/2022 Delivery Address: Attn: 6th floor IIP POM [address] [place] [place] [address] RX: Eligard Dose: 22.5mg 3 mo Quantity: [...] DX: C61 Prostate Cancer ABEL Cerrato [facility] 06/14/2022, 11:50 AM * ABEL Donald - 06/07/2022 9:47 AM EDT 06/07/2022- Reached out to Alba Iqbal for test claim POM Reason: Insurance Info: Auth Expiring: Pharmacy/Company: Phone number: [place] Location: [facility] Estimated Delivery Date: TBD Appointment Date: Ordered Date: Delivery Address: Attn: 6th floor IIP POM [address] [facility] [place] [address] RX: Eligard Dose: 22.5mg 3 mo Quantity: [...] C61 Prostate Cancer ABEL Donald [facility] 06/07/2022, 10:14 AM documented in this encounter Plan of Treatment Upcoming Encounters Date Type Specialty Care Team Description 12/05/2022 Pharmacy Pharmacy [facility] Hem/Onc [address] [facility] [place] [address] 12/11/2022 Laboratory Laboratory Gl, Lab [address] [facility] [place] [id number] 12/11/2022 Telemedicine Hematology Oncology Stan Parra MD [address] [place] [address] Cart, Telemed [facility] Hem Onc Clinic [address] [place] [address] 12/11/2022 Immunization/Injection Hematology Oncolog y [facility], Chair11 Hem Onc [address] [place] [address] 05/31/2023 Office Visit Family Medicine Evelyn Kaz FRANZ MD [address] [place] [address] Scheduled Procedures Name Priority Associated Diagnoses Date/Ti [...] the patient have Health Care Power of Mellowing Machine Operator? Yes, not currently available Care Teams Viscosity Tester Relationship Specialty Start Date End Date Kaz Rivas III, MD [address] [place] [address] PCP - General 10/25/1995 documented as of this encounter
--- OUTSIDE RECORDS SUMMARY | 2023-05-26 18:13 | External Medical Summary | Summary of Care ---
Author Name Unknown Organization [facility] Address [address] [place] [address] Phone [phone] Care Team Providers Care Director Of Sustainable Design Name Role Phone Evelyn FRANZ MD, Kaz Canela Primary Care Provider [phone] Reason for Visit * Reason Comments Patient Assistance Program Encounter Details Date Type Department Care Team Description 06/07/2022 Documentation Hematology Oncology [facility] [address] [place] [address] Stan Parra MD [address] [place] [address] Allergies Active Allergy Reactions Severity [...] Auth Expirin06/05/2025 Pharmacy/Company: [facility] Phone number: MARS microbiology quality control technician [place] Location: [facility] Estimated Delivery Date: 12/06/2022 - [facility] Appointment Date: 12/11/2022 Ordered Date: 11/27/2022 Delivery Address: Attn: 6th floor IIP POM [address] [place] [address] RX: Eligard Dose: 22.5mg 3 mo Quantity: [...] [facility] 11/27/2022, 1:19 PM * ABEL Cerrato - 11/20/2022 12:01 PM EDT 11/20/2022 - Defer to 01/27/2023 to order refill. ABEL Cerrato [facility] 11/20/2022, 12:02 PM * ABEL Cerrato - 08/31/2022 10:15 AM EDT 09/08/2022 - Received medication per pharmacy staff. Defer 11/20/2022 for refill. 08/31/2022 - IM'd [facility] for refill. Defer to 09/07/2022 for delivery. POM Reason: Insurance mandated Insurance Info: Aetna Medicare Advantage Auth Expirin06/05/2025 Pharmacy/Company: [facility] Phone number: IM microbiology quality control technician [place] Location:[facility] Estimated Delivery Date: received 09/07/2022 - [facility] Appointment Date: 09/11/2022 Ordered Date:08/31/2022 Delivery Address:Attn: 6th floor IIP POM [address] [facility] [place] [address] RX:Eligard Dose:22.5mg 3 mo Quantity:1 Manufactured Supplied:No [...] [facility] 08/31/2022, 10:18 AM * ABEL Allison - 06/15/2022 2:56 PM EDT Estimated Delivery Date: Received 06/15/2022 - [facility] * ABEL Cerrato - 06/14/2022 11:44 AM EDT 06/14/2022 - IM'd [facility] to fill script. Defer to 06/15/2022 for delivery. POM Reason: Insurance mandated Insurance Info: Aetna Medicare Advantage Auth Expirin06/05/2025 Pharmacy/Company: [facility] Phone number: IM microbiology quality control technician [place] Location: [facility] Estimated Delivery Date: 06/15/2022 - [facility] Appointment Date: 06/16/2022 Ordered Date:06/14/2022 Delivery Address: Attn: 6th floor IIP POM [address] [facility] [place] [address] RX: Eligard Dose: 22.5mg 3 mo Quantity: [...] [facility] 06/14/2022, 11:50 AM * ABEL Donald - 06/07/2022 9:47 AM EDT 06/07/2022- Reached out to Alba Iqbal for test claim POM Reason: Insurance Info: Auth Expiring: Pharmacy/Company: Phone number: [place] Location: [facility] Estimated Delivery Date: TBD Appointment Date: Ordered Date: Delivery Address: Attn: 6th floor IIP POM [address] [facility] [place] [address] RX: Eligard Dose: 22.5mg 3 mo Quantity: [...] Specialty Care Team Description 12/05/2022 Pharmacy Pharmacy [facility] Hem/Onc [address] [facility] [place] [address] 12/11/2022 Laboratory Laboratory Gl, Lab [address] [facility] [place] [id number] 12/11/2022 Telemedicine Hematology Oncology Stan Parra MD [address] [place] [address] Cart, Telemed [facility] Hem Onc Clinic [address] [place] [address] 12/11/2022 Immunization/Injection Hematology Oncolog y [facility], Chair11 Hem Onc [address] [place] [address] 05/31/2023 Office Visit Family Medicine Evelyn Kaz FRANZ MD [address] [place] [address] Scheduled Procedures Name Priority Associated Diagnoses Date/Ti [...] the patient have Health Care Power of Dyer Assistant? Yes, not currently available Care Teams Director Of Sustainable Design Relationship Specialty Start Date End Date Kaz Rivas III, MD [address] [place] [address] PCP - General 10/25/1995 documented as of this encounter
--- OUTSIDE RECORDS SUMMARY | 2023-05-26 18:13 | External Medical Summary | Summary of Care ---
Author Name Unknown Organization [facility] Address [address] [place] [address] Phone [phone] Care Team Providers Care Java Jsf Developer Name Role Phone Evelyn FRANZ MD, Kaz Canela Primary Care Provider [phone] Encounter Details Date Type Department Care Team Description 11/29/2022 Specialty Pharmacy [facility], [address], [place] [address] Medication, Mtm Specialty Refill, [address] [address] Allergies Active Allergy Reactions Severity Noted Date Comments Levofloxacin Muscle pain 02/07/2018 Oxycodone Nausea/vomiting 02/07/2018 documented as of this encounter (statuses as of 11/29/2022) Medications Medication Sig Dispensed Refills Start Date [...] as of this encounter (statuses as of 11/29/2022) Active Problems Problem Noted Date Compression fracture [...] as of this encounter (statuses as of 11/29/2022) Resolved Problems Problem Noted Date Resolved Date Supraclavicular lymphadenopathy 02/11/2016 01/02/2018 Screening for prostate cancer 04/15/2003 Overview: Resolved per Screening Diagnosis Protocol #6 Acute cholecystitis 11/25/2002 05/07/2018 Diaphragmatic hernia 05/07/2018 documented as of this encounter (statuses as of 11/29/2022) Immunizations Name Administration Dates Next Due COVID-19 [...] as of this encounter Progress Notes * Ginette Carrero, college administrator - 11/29/2022 9:36 AM EDT Incoming call for prednisone. Ship date of 11/30 set up per voice mail left by pt. Patient will notbe home asked ship date be changed to 12/04 Sanjuana Carrero multimedia technician [facility] 11/29/2022 9:40 AM documented in this encounter Plan of Treatment Upcoming Encounters Date Type Specialty Care Team Description 12/05/2022 Pharmacy Pharmacy [facility], [facility] Hem/Onc [address] [place] [address] 12/11/2022 Laboratory Laboratory [facility], Lab [address] [place], [place] [phone] 12/11/2022 Telemedicine Hematology Oncology Stan Parra MD [address] [place], [place] [phone] Cart, Telemed [facility] Hem Onc Clinic [address] [place], [place] [phone] 12/11/2022 Immunization/Injection Hematology Oncolog y [facility], Chair11 Hem Onc [address] [place] [phone] 05/03/2023 Office Visit Radiation Oncology Crescencio Obrien MD [address] [place], [place] [phone] 05/31/2023 Office Visit Family Medicine Evelyn III, Kaz Canela MD [address] [place] [address] Scheduled Procedures Name Priority Associated Diagnoses Date/Ti [...] the patient have Health Care Power of Drapery Maker? Yes, not currently available Care Teams Java Jsf Developer Relationship Specialty Start Date End Date Kaz Rivas III, MD [address] [facility] [place] [address] PCP - General 10/25/1995 documented as of this encounter
--- OUTSIDE RECORDS SUMMARY | 2023-05-26 18:13 | External Medical Summary | Summary of Care ---
Author Name Unknown Organization [facility] Address [address] [place] [address] Phone [phone] Care Team Providers Care Tipple Worker Name Role Phone Evelyn FRANZ MD, Kaz Canela Primary Care Provider [phone] Encounter Details Date Type Department Care Team Description 11/29/2022 Specialty Pharmacy [facility], [address], [facility] [place] [address] Medication, Mtm Specialty Refill, [address] [address] Allergies Active Allergy Reactions Severity Noted Date [...] this encounter Progress Notes * Ginette Carrero, sterile products processor - 11/29/2022 9:36 AM EDT Incoming call for prednisone. Ship date of 11/30 set up per voice mail left by pt. Patient will notbe home asked ship date be changed to 12/04 Sanjuana Carrero wet process technician [facility] 11/29/2022 9:40 AM documented in this encounter Plan of Treatment Upcoming Encounters Date Type Specialty Care Team Description 12/05/2022 Pharmacy Pharmacy [facility], [facility] Hem/Onc [address] [place] [address] 12/11/2022 Laboratory Laboratory [facility], Lab [address] [place], [place] [phone] 12/11/2022 Telemedicine Hematology Oncology Stan Parra MD [address] [place], [place] [address] Cart, Telemed [facility] Hem Onc Clinic [address] [place], [place] [phone] 12/11/2022 Immunization/Injection Hematology Oncolog y [facility], Chair11 Hem Onc [address] [place] [phone] 05/03/2023 Office Visit Radiation Oncology Crescencio Obrien MD [address] [place], [place] [address] 05/31/2023 Office Visit Family Medicine Evelyn III, Kaz Canela MD [address] [place] [address] Scheduled Procedures Name Priority Associated Diagnoses [...] the patient have Health Care Power of Tower Equipment Repairer? Yes, not currently available Care Teams Tipple Worker Relationship Specialty Start Date End Date Kaz Rivas III, MD [address] [place] [address] PCP - General 10/25/1995 documented as of this encounter
--- OUTSIDE RECORDS SUMMARY | 2023-05-26 18:13 | External Medical Summary | Summary of Care ---
Author Name Unknown Organization [facility] Address [address] [place] [address] Phone [phone] Care Team Providers Care Computed Tomography Technician Name Role Phone Evelyn FRANZ MD, Kaz Canela Primary Care Provider [phone] Reason for Visit * Reason Comments Patient Assistance Program Encounter Details Date Type Department Care Team Description 06/07/2022 Documentation Hematology Oncology [facility] [address] [place] [address] Stan Parra MD [address] [place] [address] Allergies Active Allergy Reactions Severity [...] Auth Expirin06/05/2025 Pharmacy/Company: [facility] Phone number: MARS traffic technician [place] Location: [facility] Estimated Delivery Date: 12/06/2022 - [facility] Appointment Date: 12/11/2022 Ordered Date: 11/27/2022 Delivery Address: Attn: 6th floor IIP POM [address] [place] [address] RX: Eligard Dose: 22.5mg 3 mo Quantity: [...] C61 Prostate Cancer ABEL Cerrato [facility] 11/27/2022, 1:19 PM * ABEL Cerrato - 11/20/2022 12:01 PM EDT 11/20/2022 - Defer to 01/27/2023 to order refill. ABEL Cerrato [facility] 11/20/2022, 12:02 PM * ABEL Cerrato - 08/31/2022 10:15 AM EDT 09/08/2022 - Received medication per pharmacy staff. Defer 11/20/2022 for refill. 08/31/2022 - IM'd [facility] for refill. Defer to 09/07/2022 for delivery. POM Reason: Insurance mandated Insurance Info: Aetna Medicare Advantage Auth Expirin06/05/2025 Pharmacy/Company: [facility] Phone number: IM traffic technician [place] Location:[facility] Estimated Delivery Date: received 09/07/2022 - [facility] Appointment Date: 09/11/2022 Ordered Date:08/31/2022 Delivery Address:Attn: 6th floor IIP POM [address] [facility] [place] [address] RX:Eligard Dose:22.5mg 3 mo Quantity:1 Manufactured Supplied:No [...] DX:C61 Prostate Cancer ABEL Cerrato [facility] 08/31/2022, 10:18 AM * ABEL Allison - 06/15/2022 2:56 PM EDT Estimated Delivery Date: Received 06/15/2022 - [facility] * ABEL Cerrato - 06/14/2022 11:44 AM EDT 06/14/2022 - IM'd [facility] to fill script. Defer to 06/15/2022 for delivery. POM Reason: Insurance mandated Insurance Info: A[employer]na Medicare Advantage Auth Expirin06/05/2025 Pharmacy/Company: [facility] Phone number: IM traffic technician [place] Location: [facility] Estimated Delivery Date: 06/15/2022 - [facility] Appointment Date: 06/16/2022 Ordered Date:06/14/2022 Delivery Address: Attn: 6th floor IIP POM [address] [facility] [place] [address] RX: Eligard Dose: 22.5mg 3 mo Quantity: [...] C61 Prostate Cancer ABEL Cerrato [facility] 06/14/2022, 11:50 AM * ABEL Donald - 06/07/2022 9:47 AM EDT 06/07/2022- Reached out to [facility] for test claim POM Reason: Insurance Info: Auth Expiring: Pharmacy/Company: Phone number: [place] Location: [facility] Estimated Delivery Date: TBD Appointment Date: Ordered Date: Delivery Address: Attn: 6th floor IIP P[address] [facility] [place] [address] RX: Eligard Dose: 22.5mg 3 mo Quantity: [...] 4 DX: C61 Prostate Cancer ABEL Donald [facility] 06/07/2022, 10:14 AM documented in this encounter Plan of Treatment Upcoming Encounters Date Type Specialty Care Team Description 12/05/2022 Pharmacy Pharmacy [facility], [facility] Hem/Onc [address] [place] [id number] 12/11/2022 Laboratory Laboratory Gl, Lab [address] [facility] [place] [id number] 12/11/2022 Telemedicine Hematology Oncology Stan Parra MD [address] [place] [address] Cart, Telemed [facility] [address] [place] [address] 12/11/2022 Immunization/Injection Hematology Oncolog y [facility], [facility] Hem Onc [address] [place] [address] 05/31/2023 Office Visit Family Medicine Evelyn Kaz FRANZ MD [address] [place] [address] Scheduled Procedures Name Priority Associated Diagnoses Date/Ti [...] the patient have Health Care Power of Straight Ruling Machine Operator? Yes, not currently available Care Teams Computed Tomography Technician Relationship Specialty Start Date End Date Kaz Rivas III, MD [address] [place] [address] PCP - General 10/25/1995 documented as of this encounter
--- OUTSIDE RECORDS SUMMARY | 2023-05-26 18:13 | External Medical Summary | Summary of Care ---
Author Name Unknown Organization [facility] Address [address] [place] [address] Phone [phone] Care Team Providers Care Customer Operations Manager Name Role Phone Evelyn FRANZ MD, Kaz Canela Primary Care Provider [phone] Reason for Visit * Reason Comments Patient Assistance Program Encounter Details Date Type Department Care Team Description 06/07/2022 Documentation Hematology Oncology [facility] [address] [place] [address] Stan Parra MD [address] [place] [address] Allergies Active Allergy Reactions Severity [...] Advantage Auth Expirin06/05/2025 Pharmacy/Company: [facility] Phone number: AMRS testing and regulating technician [place] Location: [facility] Estimated Delivery Date: 12/06/2022 - [facility] Appointment Date: 12/11/2022 Ordered Date: 11/27/2022 Delivery Address: Attn: 6th floor IIP POM [address] [place] [address] RX: Eligard Dose: 22.5mg 3 mo Quantity: [...] 4 DX: C61 Prostate Cancer ABEL Cerrato [facility] 11/27/2022, 1:19 PM * ABEL Cerrato - 11/20/2022 12:01 PM EDT 11/20/2022 - Defer to 01/27/2023 to order refill. ABEL Cerrato [facility] 11/20/2022, 12:02 PM * ABEL Cerrato - 08/31/2022 10:15 AM EDT 09/08/2022 - Received medication per pharmacy staff. Defer 11/20/2022 for refill. 08/31/2022 - IM'd [facility] for refill. Defer to 09/07/2022 for delivery. POM Reason: Insurance mandated Insurance Info: Aetna Medicare Advantage Auth Expirin06/05/2025 Pharmacy/Company: [facility] Phone number: IM testing and regulating technician [place] Location:[facility] Estimated Delivery Date: received 09/07/2022 - [facility] Appointment Date: 09/11/2022 Ordered Date:08/31/2022 Delivery Address:Attn: 6th floor IIP POM [address] [facility] [place] [address] RX:Eligard Dose:22.5mg 3 mo Quantity:1 Manufactured Supplied:No Refills remaining: Injection Number for this order: 2nd of 4 Paid Claim at time of order: Valid Prior Auth on File at Ordering Pharmacy: Commercial Insurance: Co pay card on file: Medicare Insurance: Co pay assistance: Last Treatment Date:06/16/2022 Next Refill: 11/20/2022 Upcoming Appt: 12/04/2022 Prescribing Physician:Stan Parra [place] Schedule:Q3 months x 4 DX:C61 Prostate Cancer BAEL Cerrato [facility] 08/31/2022, 10:18 AM * ABEL Allison - 06/15/2022 2:56 PM EDT Estimated Delivery Date: Received 06/15/2022 - [facility] * ABEL Cerrato - 06/14/2022 11:44 AM EDT 06/14/2022 - IM'd [facility] to fill script. Defer to 06/15/2022 for delivery. POM Reason: Insurance mandated Insurance Info: Aetna Medicare Advantage Auth Expirin06/05/2025 Pharmacy/Company: [facility] Phone number: IM testing and regulating technician [place] Location: [facility] Estimated Delivery Date: 06/15/2022 - [facility] Appointment Date: 06/16/2022 Ordered Date:06/14/2022 Delivery Address: Attn: 6th floor IIP POM [address] [facility] [place] [address] RX: Eligard Dose: 22.5mg 3 mo Quantity: [...] 4 DX: C61 Prostate Cancer ABEL Cerrato [facility] 06/14/2022, 11:50 AM * ABEL Donald - 06/07/2022 9:47 AM EDT 06/07/2022- Reached out to [facility] Iqbla for test claim POM Reason: Insurance Info: Auth Expiring: Pharmacy/Company: Phone number: [place] Location: [facility] Estimated Delivery Date: TBD Appointment Date: Ordered Date: Delivery Address: Attn: 6th floor [address]IP [address] [place] [address] RX: Eligard Dose: 22.5mg 3 mo Quantity: [...] 4 DX: C61 Prostate Cancer ABEL Donald [facility] 06/07/2022, 10:14 AM documented in this encounter Plan of Treatment Upcoming Encounters Date Type Specialty Care Team Description 12/11/2022 Laboratory Laboratory Glh, Lab [address] [place] [address] 12/11/2022 Office Visit Hematology Oncology Yesi Farfan CRNP [address] [place] [address] 12/11/2022 Immunization/Injection Hematology Oncolog y [facility], Chair1 Hem Onc [address] [place] [address] 01/09/2023 Pharmacy Pharmacy [facility], [facility] Hem/Onc [address] [place] [address] 05/03/2023 Office Visit Radiation Oncology Crescencio Obrien MD [address] [place] [phone] 05/31/2023 Office Visit Family Medicine Morrow III, Kaz Canela MD [address] [place] [address] Scheduled Procedures Name Priority Associated Diagnoses Date/Ti [...] the patient have Health Care Power of Supervisor Powdered Metal? Yes, not currently available Care Teams Customer Operations Manager Relationship Specialty Start Date End Date Kaz Rivas III, MD [address] [place] [address] PCP - General 10/25/1995 documented as of this encounter
[2023-05-26] MEDS: SUCRALFATE 1 GM TAB PO SCH (18:20)
[2023-05-26] MEDS: TAMSULOSIN HCL 0.4 MG CAP PO SCH (20:41)
[2023-05-26] MEDS: APIXABAN 5 MG TABLET PO SCH (20:41)
[2023-05-27] MEDS: PANTOprazole 40 MG TAB PO SCH (05:16)
[2023-05-27 06:11] LABS: Hematocrit (blood only) 38.5 % (42.0-52.0); Hemoglobin 12.9 g/dl (14.0-18.0); Mean Corpuscular Hemoglobin 29.3 pg (25.0-34.0); Mean Corpuscular Hgb Conc 33.5 g/dL (32.0-36.0); Mean Corpuscular Volume 87.5 fL (80.0-100.0); Mean Platelet Volume 9.9 fL (9.4-12.4); Platelet Count 182 K/uL (130-400); RDW Coefficient of Variation 13.3 % (11.5-14.5); White Blood Count 4.84 K/ul (4.8-10.8)
[2023-05-27 06:33] LABS: BUN Creatinine Ratio 24.3 (10-20); Calcium 8.5 mg/dl (8.6-10.3); Chol HDL Ratio 3.1 (0-5); Creatinine Clr Calc Pharmacy 113.3 ml/min; Est GFR (African American) 109.3 ml/min; Est GFR (Non-African American) 94.3 ml/min; Potassium 3.7 mmol/L (3.5-5.1)
[2023-05-27] MEDS ORDERED: MAGNESIUM HYDROXIDE SUSP 30 ML UDC PO PRN (08:44)
[2023-05-27] MEDS: ROSUVASTATIN CALCIUM 5 MG TAB PO SCH (09:06)
[2023-05-27] MEDS: predniSONE 5 MG TAB PO SCH (09:06)
[2023-05-27] MEDS: ASPIRIN 81 MG ECTAB PO SCH (09:06)
--- NOTE | 2023-05-27 09:40 | Cardiology Consultation ---
Date of Consultation May 27, 2023 Assessment & Plan (1) Atypical chest pain: (2) Dyslipidemia: (3) Hypertension: (4) Incomplete RBBB: Plan 72-year-old male admitted with atypical chest discomfort. No evidence of acute coronary syndrome with negative high-sensitivity troponin and nonischemic ECG. Telemetry reveals sinus rhythm with sinus bradycardia overnight without dysrhythmia. Recurrent episode of (heartburn) reported this a.m. ECG without ischemic changes. Repeat high-sensitivity troponin pending. Resting 2D transthoracic echocardiogram pending. If there are no regional wall motion abnormalities, and high-sensitivity troponin remains within normal range without significant delta, recommend proceeding with exercise stress echocardiography in the a.m. 05/28/2023. If stress testing demonstrates evidence of ischemia we will proceed with cardiac catheterization for further evaluation. Hold Eliquis pending stress test results. Patient agreeable to the current plan. Thank you for allow me to participate in the care of your patient. History of Present Illness Reason for Consultation: chest pain Requesting Physician: Adelaide Peres PA-C Attending Physician: Leo Miller MD History of Present Illness 72-year-old male present to the emergency department with chest discomfort, abdominal discomfort, diaphoresis, and diarrhea. Typically walks 2 miles, 3-5 days/week. Last week he developed some mild, 2/10 left-sided chest discomfort during his walk. Continue to walk through the discomfort which did not worsen. Unsure whether the discomfort resolved while walking but clearly remembers no discomfort at rest. Approximately 48 hours later he went out to his camp and was cutting logs with a chainsaw. Asymptomatic during that activity, however, on the ride home he developed abdominal discomfort, nausea, and diaphoresis. Significant diarrhea noted when he returned home. Unsure whether there was any associated chest discomfort during this episode. Due to the symptoms he came to the ER. Chest pain-free since admission, however, reports an episode of heartburn overnight. A twelve-lead ECG was obtained by the nursing staff at approximately 5:50 AM without ischemic changes. His high-sensitivity troponins are within normal limits. Echocardiogram pending at this time. Denies personal history of coronary artery disease, congestive heart failure, rheumatic fever as a child, or diabetes. Carries history of dyslipidemia, hypertension, metastatic prostate cancer to and DVT on chronic anticoagulation. Allergies Allergy/AdvReac Type Severity Reaction Status Date / Time [facility] AdvReac Intermediate Muscle Verified 05/24/22 14:28 Pain, pain to achilles tendon oxycodone AdvReac Intermediate NAUSEA/VOMI Verified 05/24/22 14:28 TING Home Medications Medication Instructions Recorded Confirmed Type omeprazole 40 mg capsule,delayed 40 mg PO DAILYBB 05/03/18 05/26/23 History release sucralfate 1 gram tablet 1 g PO AC 09/13/20 05/26/23 History tamsulosin 0.4 mg capsule 0.4 mg PO PM 03/22/21 05/26/23 History acetaminophen 650 mg 650 mg PO Q8H PRN Pain 04/29/21 05/26/23 History tablet,extended release amoxicillin 500 mg tablet 2,000 mg (4 x 500 mg) PO ONCE PRN 10/31/21 05/26/23 Rx prophylaxis #4 tabs apixaban 5 mg tablet (Eliquis) 5 mg PO BID 03/16/22 05/26/23 History msvehdjp-hf-zrqjo 300 mcg-K 60 1 tab PO DAILY 03/16/22 05/26/23 History mcg-lycop 600 mcg-lutein 300 mcg tablet (Centrum Silver Men) abiraterone 250 mg tablet (Zytiga) 250 mg PO QAM 05/26/23 05/26/23 History calcium carbonate 600 mg-vitamin 1 tab PO DAILY 05/26/23 05/26/23 History D3 10 mcg (400 unit) tablet (Calcium 600 + D(3)) prednisone 5 mg tablet 5 mg PO DAILY 05/26/23 05/26/23 History Patient History Medical History History of DVT (deep vein thrombosis) Sciatica Radiation to right LE Hypertension BORDERLINE , NO MEDS FOR Dyslipidemia History of COVID-19 DX'ED MAR 22, 2021 - had post nasal drip, headache, body aches - resolved Osteoarthritis GERD (gastroesophageal reflux disease) Aggravated by recent Covid infection Prostate cancer Dx 1997; h/o radiation COURSE OF LUPRON COMPLETED Gout HX Surgical History History of hand surgery RIGHT CARPAL TUNNEL History of dental surgery History of prostate biopsy History of esophagogastroduodenoscopy (EGD) History of colonoscopy History of arthroscopy of left knee X 2 H/O shoulder surgery left H/O lumbar discectomy History of cholecystectomy Hx of tonsillectomy Family History Mother Diabetes Other Cancer Heart disease No family history of adverse response to anesthesia Social History Smoking Status: Never smoker Second Hand Exposure: No; Do You Dip or Chew Tobacco: No; Hx Alcohol Use: Yes Alcohol type: wine Hx Substance Use: No Preferred Language: Sami Communication Ability: Effective Medical Office Professional Instructor Required: No Beliefs That Will Affect Care: None Current Living Situation: Spouse current occupational status: retired Other Information That Helps Us Care for You: No Feels Safe at Home: Yes Assistive Devices: None Review of Systems Review of Systems: All systems reviewed & are unremarkable except as noted in Subjective Physical Exam Constitutional: well nourished; no acute distress Respiratory: no respiratory distress, no labored breathing and no retractions Auscultation: lungs clear to auscultation bilaterally; no crackles, no rales, no rhonchi and no wheezes Cardiovascular: Rate/Rhythm: regular rate and regular rhythm Heart Sounds: normal S1 and normal S2; no murmur Vessels: femoral pulses present and radial pulses present; no JVD and no carotid bruit Extremities: no edema Gastrointestinal (Abdomen): Inspection/Auscultation: normal bowel sounds; abdomen not distended Percussion/Palpation: abdomen soft; abdomen nontender, no guarding and abdomen not rigid Neurologic: CN's II-XI intact bilaterally and moves all extremities; no focal motor deficits Results & Data Vital Signs (Past 12 Hours) Vital Signs Temp Pulse Pulse Pulse Resp BP BP 05/27/23 07:36 36.4 C L 59 L 18 128/75 05/27/23 06:01 55 L 05/27/23 03:55 36.5 C 56 L 20 129/80 05/27/23 00:23 61 05/26/23 23:17 36.8 C 55 L 18 130/78 05/26/23 22:46 63 17 134/75 05/26/23 22:00 62 17 137/75 Pulse Ox O2 Del Method 05/27/23 07:36 96 Room Air 05/27/23 06:01 05/27/23 03:55 96 Room Air 05/27/23 00:23 05/26/23 23:17 95 Room Air 05/26/23 22:46 92 Room Air 05/26/23 22:00 95 Room Air Laboratory Results Cardiac Enzymes 05/26/23 05/26/23 05/26/23 Range/Units 12:59 16:12 18:38 AST 21 (13-39) U/L Troponin I High Sens 8.2 9.3 8.4 (0-20) pg/ml Lipids 05/27/23 Range/Units 05:48 Triglycerides 98 (0-150) mg/dl Cholesterol 167 (0-200) mg/dl HDL Cholesterol 54 mg/dl Cholesterol/HDL Ratio 3.1 (0-5) CBC 05/26/23 05/27/23 Range/Units 12:59 05:48 WBC 8.95 4.84 (4.8-10.8) K/ul RBC 4.87 4.40 L (4.70-6.10) M/uL Hgb 14.4 12.9 L (14.0-18.0) g/dl Hct 42.8 38.5 L (42.0-52.0) % Plt Count 200 182 (130-400) K/uL Neut # (Auto) 7.95 H (1.40-6.50) K/uL Lymph # (Auto) 0.49 L (1.20-3.40) K/uL [place] # (Auto) 0.43 (0.11-0.59) K/uL Eos # (Auto) 0.02 (0.00-0.50) K/uL Baso # (Auto) 0.03 (0.00-0.20) K/uL Comprehensive Metabolic Panel 05/26/23 05/27/23 Range/Units 12:59 05:48 Sodium 138 138 (136-145) mmol/L Potassium 4.3 3.7 (3.5-5.1) mmol/L Chloride 104 107 (98-107) mmol/L Carbon Dioxide 27 26 (21-32) mmol/L BUN 20 17 (6-23) mg/dl Creatinine 0.78 0.70 (0.6-1.4) mg/dl Glucose 113 H 104 H (70-99(Fasting)) mg/dl Calcium 9.4 8.5 L (8.6-10.3) mg/dl AST 21 (13-39) U/L ALT 12 (7-52) U/L Alkaline Phosphatase 70 (34-104) U/L Total Protein 7.0 (6.0-8.3) gm/dl Albumin 4.0 (3.4-5.0) gm/dl Intake and Output 05/26/23 05/27/23 05/27/23 22:59 06:59 14:59 Intake Total 300 / 800 500 / 800 Output Total 750 / 1150 400 / 1150 Balance -450 / -350 100 / -350 Intake: Oral 300 / 800 500 / 800 Output: Urine 750 / 1150 400 / 1150 Other: Weight 93.6 kg 90.1 kg Weight Measurement Method Built in [facility] Built in [facility] (3) Hypertension Hypertension type: primary hypertension Qualified Code(s): I10 - Essential (primary) hypertension
--- NOTE | 2023-05-27 10:56 | Hospitalist Progress Note ---
Date of Service May 27, 2023 Assessment & Plan (1) Chest pain: Plan: Patient is 72-year-old male with PMH HTN, dyslipidemia, 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 T wave inversion in inferior leads. Chest x-ray personally reviewed; no acute findings High sensitive troponin negative Discussed with cardiology; possible stress test tomorrow a.m. Echocardiogram pending Continue to monitor on telemetry Started on aspirin and rosuvastatin; continue for now. LDL of 93 (2) Hypertension: Plan: Not on medications BP within normal limits Continue to monitor (3) Dyslipidemia: Plan: Restarted on rosuvastatin 5 mg, continue. LDL of 93 (4) Prostate cancer: Plan: History prostate CA with metastasis to abdominal lymph nodes and spine S/P radiation On Zytiga, leuprolide, chronic prednisone 5mg daily, tamsulosin (5) GERD (gastroesophageal reflux disease): Plan: Continue PPI, Carafate (6) History of DVT (deep vein thrombosis): Plan: History LLE DVT in 2021 Continue Eliquis DVT Prophylaxis On Eliquis Full code as per discussion with pt Time spent evaluating patient, direct bedside care, chart review, placing orders, interpretation of diagnostic studies, discussion with consultants, patient, and family members, as well as other required patient management activities is 50 minutes Please note the above document was generated using voice recognition software. It may contain grammatical, syntax or spelling errors. Any formal questions or concerns about the content, text or information contained within the body of this dictation should be directly addressed to the provider for clarification Admission and Anticipated Discharge Date Admission Date: May 26, 2023 Subjective Patient seen and examined at bedside. He reports that he no longer has chest pain at the moment. Denies any pain or discomfort anywhere else No significant events overnight Review of Systems Review of Systems: All systems reviewed & are unremarkable except as noted in Subjective Physical Exam Physical Exam: Constitutional: WD/WN, vitals as above, NAD, sitting up in bed, pleasant, conversing easily Respiratory: normal respiratory effort, lungs clear to auscultation, no wheeze, rales, rhonchi. Normal insp/exp effort, no accessory muscle use Cardiovascular: RRR, no murmur, no edema Vessels: no JVD or carotid bruit Chest: normal inspection of chest Abdomen: normal bowel sounds, soft, nontender, no hepatosplenomegaly Musculoskeletal: no cyanosis or clubbing, extremities motor strength 5/5 Skin: no rashes, warm and dry normal turgor Neurologic: PERRL, EOMI, accommodation nl, no face palsy, no dysarthria CN's II- XI intact bilaterally and moves all extremities Psychiatric: A+Ox3, euthymic affect Results & Data Results & Data Vital Signs (Past 12 Hours) Vital Signs Temp Pulse Pulse Pulse Resp BP BP 05/27/23 07:36 36.4 C L 59 L 18 128/75 05/27/23 06:01 55 L 05/27/23 03:55 36.5 C 56 L 20 129/80 05/27/23 00:23 61 05/26/23 23:17 36.8 C 55 L 18 130/78 Pulse Ox O2 Del Method 05/27/23 07:36 96 Room Air 05/27/23 06:01 05/27/23 03:55 96 Room Air 05/27/23 00:23 05/26/23 23:17 95 Room Air (2) Hypertension Hypertension type: primary hypertension Qualified Code(s): I10 - Essential (primary) hypertension
[2023-05-27] MEDS: ABIRATERONE ACETATE 250 MG PO SCH (12:12)
--- NOTE | 2023-05-27 12:18 | Electrocardiogram Report ---
Test Reason : Blood Pressure : / mmHG Vent. Rate : 060 BPM Atrial Rate : 060 BPM P-R Int : 166 ms QRS Dur : 102 ms QT Int : 448 ms P-R-T Axes : 043 -19 013 degrees QTc Int : 448 ms Normal sinus rhythm Incomplete right bundle branch block Abnormal ECG When compared with ECG of 26-MAY-2023 12:56, No significant change was found Confirmed by Jasen Rubio ([id number]) on 05/27/2023 12:18:08 PM Referred By: REFERRED SELF Confirmed By:Amador Rubio
[2023-05-28 06:19] LABS: Basophils # (auto) 0.01 K/uL (0.00-0.20); Basophils % (auto) 0.2 %; Eosinophils # (auto) 0.07 K/uL (0.00-0.50); Eosinophils % (auto) 1.5 %; Hematocrit (blood only) 39.8 % (42.0-52.0); Hemoglobin 13.4 g/dl (14.0-18.0); Immature Granulocytes # (auto) 0.01 K/uL (0.01-0.20); Immature Granulocytes % (auto) 0.2 %; Lymphocytes % (auto) 16.6 %; Mean Corpuscular Hemoglobin 29.5 pg (25.0-34.0); Mean Corpuscular Hgb Conc 33.7 g/dL (32.0-36.0); Mean Corpuscular Volume 87.7 fL (80.0-100.0); Mean Platelet Volume 10.1 fL (9.4-12.4); Monocytes # (auto) 0.47 K/uL (0.11-0.59); Monocytes % (auto) 9.8 %; Neutrophils # (auto) 3.45 K/uL (1.40-6.50); Neutrophils % (auto) 71.7 %; Platelet Count 176 K/uL (130-400); RDW Coefficient of Variation 13.2 % (11.5-14.5); RDW Standard Deviation 42.2 fL (36.4-46.3); Red Blood Count 4.54 M/uL (4.70-6.10); White Blood Count 4.81 K/ul (4.8-10.8)
[2023-05-28 06:27] LABS: BUN Creatinine Ratio 23.5 (10-20); Calcium 8.7 mg/dl (8.6-10.3); Creatinine Clr Calc Pharmacy 90.5 ml/min; Est GFR (African American) 102.9 ml/min; Est GFR (Non-African American) 88.8 ml/min; Potassium 3.8 mmol/L (3.5-5.1)
--- NOTE | 2023-05-28 09:02 | Electrocardiogram Report ---
Test Reason : Blood Pressure : / mmHG Vent. Rate : 060 BPM Atrial Rate : 060 BPM P-R Int : 174 ms QRS Dur : 106 ms QT Int : 426 ms P-R-T Axes : 002 068 034 degrees QTc Int : 426 ms Normal sinus rhythm Normal ECG When compared with ECG of 27-MAY-2023 08:29, No significant change was found Confirmed by Jasen Rubio ([id number]) on 05/28/2023 9:02:04 AM Referred By: REFERRED SELF Confirmed By:Amador Rubio
--- NOTE | 2023-05-28 10:09 | Cardiology Progress Note ---
Date of Service May 28, 2023 Assessment & Plan (1) Atypical chest pain: (2) Dyslipidemia: (3) Hypertension: (4) Incomplete RBBB: Plan 72-year-old male admitted with atypical chest discomfort. No evidence of acute coronary syndrome with negative high-sensitivity troponin and nonischemic ECG. Exercise stress echo performed this a.m., 05/28/2023 without evidence of inducible ischemia at adequate workload. No anginal symptoms. Chest discomfort is noncardiac. No further inpatient cardiac testing or intervention recommended at this time. Restart Eliquis. Patient received 5 mg orally x 1 now. Continue 5 mg twice daily. Low-dose aspirin may be discontinued. Rosuvastatin restarted during hospitalization. Continue at discharge and follow-up with primary care regarding further management. Cardiology will sign off. Please call with additional concerns/questions. Admission and Anticipated Discharge Date Admission Date: May 26, 2023 Subjective Patient seen and examined at bedside. No recurrent chest discomfort overnight. Exercise stress echo performed without anginal symptoms. Patient offers no additional concerns/complaints. Review of Systems Review of Systems: All systems reviewed & are unremarkable except as noted in Subjective Physical Exam Constitutional: well nourished; no acute distress Respiratory: no respiratory distress, no labored breathing and no retractions Auscultation: lungs clear to auscultation bilaterally; no crackles, no rales, no rhonchi and no wheezes Cardiovascular: Rate/Rhythm: regular rate and regular rhythm Heart Sounds: normal S1 and normal S2; no murmur Vessels: femoral pulses present and radial pulses present; no JVD and no carotid bruit Extremities: no edema Gastrointestinal (Abdomen): Inspection/Auscultation: normal bowel sounds; abdomen not distended Percussion/Palpation: abdomen soft; abdomen nontender, no guarding and abdomen not rigid Neurologic: CN's II-XI intact bilaterally and moves all extremities; no focal motor deficits Results & Data Vital Signs (Past 12 Hours) Vital Signs Temp Pulse Pulse Resp BP Pulse Ox O2 Del Method 05/28/23 07:43 36.6 C 59 L 20 130/80 96 Room Air 05/28/23 06:21 81 05/28/23 02:58 36.7 C 57 L 16 123/73 93 Room Air 05/27/23 23:00 65 05/27/23 22:57 36.7 C 57 L 16 120/70 97 Room Air Laboratory Results CBC 05/28/23 Range/Units 05:38 WBC 4.81 (4.8-10.8) K/ul RBC 4.54 L (4.70-6.10) M/uL Hgb 13.4 L (14.0-18.0) g/dl Hct 39.8 L (42.0-52.0) % Plt Count 176 (130-400) K/uL Neut # (Auto) 3.45 (1.40-6.50) K/uL Lymph # (Auto) 0.80 L (1.20-3.40) K/uL [place] # (Auto) 0.47 (0.11-0.59) K/uL Eos # (Auto) 0.07 (0.00-0.50) K/uL Baso # (Auto) 0.01 (0.00-0.20) K/uL Comprehensive Metabolic Panel 05/28/23 Range/Units 05:38 Sodium 140 (136-145) mmol/L Potassium 3.8 (3.5-5.1) mmol/L Chloride 108 H (98-107) mmol/L Carbon Dioxide 25 (21-32) mmol/L BUN 19 (6-23) mg/dl Creatinine 0.81 (0.6-1.4) mg/dl Glucose 105 H (70-99(Fasting)) mg/dl Calcium 8.7 (8.6-10.3) mg/dl Intake and Output 05/27/23 05/28/23 05/28/23 22:59 06:59 14:59 Intake Total 380 / 620 Balance 380 / 620 Intake: Oral 380 / 620 Other: Other Intake Source npo # Unmeasured Voids 2 Weight 88.7 kg Weight Measurement Method Built in [facility] (3) Hypertension Hypertension type: primary hypertension Qualified Code(s): I10 - Essential (primary) hypertension
[2023-05-28] MEDS: APIXABAN 5 MG TABLET PO ONE (10:25)
--- NOTE | 2023-05-28 13:47 | Discharge Summary ---
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 History obtained from patient and patient's and outpatient chart review. Patient states that he usually walks 30 minutes for approximately 2 miles in mornings and last week after walking he had some left chest discomfort that resolved after rest. Today was walking and then cut wood with chain saw for 30 minutes. Once got home had nausea, dry heaves, diarrhea, diaphoresis, lightheaded, SOB and left chest pain. Describes chest pain as dull discomfort that was non-radiating, rating 2/10. Also states had some paresthesias left wrist and fingers. States symptoms seemed to ease up after resting. States did notice significant abdominal pain. Had some mild BENTLEY. Denies any symptoms currently. Patient states has had sinus pressure, congestion, sore throat and cough that started 6 weeks ago. States cough was productive and just finished Augmentin and prednisone. 05/15/2023 respiratory panel positive influenza A PCR. Reports congestion and cough symptoms improved. States BENTLEY has since resolved after eating in the ER. Denies fever/chills, hematemesis, hematochezia, melena, syncope, vision changes, neck pain, orthopnea, palpitations, abdominal pain, paresthesias, weakness, extremity weakness, extremity edema, rashes, urinary symptoms. Admission Exam Per Admitting Provider General: NAD, obese, well nourished, non-toxic appearing Head: NC AT Eyes: anicteric sclera, no conjunctival injection. Yellow eye lids (no other e/o jaundice). Per chronic x years. Nose: nares patent Mouth: MMM Neck: supple, trachea midline CV: RRR S1 S2 Pulm: CTA b/l Abd/GI: + BS, soft, NT, ND, no guarding Ext: no pretibial edema. dorsalis pedis intact b/l MSK: normal bulk and tone Neuro: no focal deficits. moving all 4 extremities symmetrically Psych: pleasant mood and affect Skin: visible skin is warm, dry, and without rash. Pt not fully undressed for exam. Principal Diagnosis Chest pain, ACS ruled out Discharge Exam Constitutional: WD/WN, vitals as above, NAD, sitting up in bed, pleasant, conversing easily Respiratory: normal respiratory effort, lungs clear to auscultation, no wheeze, rales, rhonchi. Normal insp/exp effort, no accessory muscle use Cardiovascular: RRR, no murmur, no edema Vessels: no JVD or carotid bruit Chest: normal inspection of chest Abdomen: normal bowel sounds, soft, nontender, no hepatosplenomegaly Musculoskeletal: no cyanosis or clubbing, extremities motor strength 5/5 Skin: no rashes, warm and dry normal turgor Neurologic: PERRL, EOMI, accommodation nl, no face palsy, no dysarthria CN's II- XI intact bilaterally and moves all extremities Psychiatric: A+Ox3, euthymic affect Discharge Data Allergies Allergy/AdvReac Type Severity Reaction Status Date / Time levofloxacin [From Levaquin] AdvReac Intermediate Muscle Verified 05/24/22 14:28 Pain, pain to achilles tendon oxycodone AdvReac Intermediate NAUSEA/VOMI Verified 05/24/22 14:28 TING Consultations 05/26/23 14:27 ED Decision to Admit Stat 05/26/23 17:16 Consult Cardiology Routine Hospital Course (1) Chest pain: (2) Hypertension: (3) Dyslipidemia: (4) Prostate cancer: (5) GERD (gastroesophageal reflux disease): (6) History of DVT (deep vein thrombosis): Patient is 72-year-old male with PMH HTN, dyslipidemia, 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 T wave inversion in inferior leads. Chest x-ray personally reviewed; no acute findings High sensitive troponin negative Cardiology was consulted during the hospitalization. Echocardiogram was done; EF of 65 to 70% with grade 1 diastolic dysfunction. No significant valvular pathology. Patient underwent stress echocardiogram; normal stress echocardiogram Patient was started on rosuvastatin. Patient was discharged home with instructions to follow-up with PCP. No other medication changes were done Please note the above document was generated using voice recognition software. It may contain grammatical, syntax or spelling errors. Any formal questions or concerns about the content, text or information contained within the body of this dictation should be directly addressed to the provider for clarification Total Time Total Time Spent Total Time Spent (In Minutes): 35 Total Time Includes: Examination of the Patient, Discharge Planning, Medication Reconciliation, Communication With Other Providers and Other Discharge Plan Discharge Items Patient Disposition: Home - Self-Care Reason For Visit: CP Discharge Diagnosis: Chest pain, ACS ruled out Activity: Resume your previous activity Non-emergency contact: Primary Care Provider Call non-emergency contact if: you have any medication questions and your symptoms worsen Follow-up/Referrals: Kaz Rivas MD [Primary Care Provider] - (Date & Time 05/31/2023 9:40 AM Provider Kaz Rivas III, MD Department [facility] ) Diet: Regular Addtl Attending Provider Instructions: You were admitted to the hospital due to chest pain. Your evaluated by card iology during the hospitalization; and underwent a stress test. It was negative for any abnormality. You were started on rosuvastatin 5 mg once a day. The prescription has been sent to the pharmacy. An appointment with your primary care doctor will be set up for sometime next week Pending Studies at Discharge: No Stand-Alone Forms: [facility], Smoking Cessation Medications and DC Order Prescriptions: New rosuvastatin 5 mg Tablet 5 mg PO QAM Qty: 30 0RF Continued amoxicillin 500 mg tablet 2,000 mg PO ONCE PRN (Reason: prophylaxis) Qty: 4 2RF Rx Instructions: ONE HOUR PRIOR TO DENTAL PROCEDURE omeprazole 40 mg Capsule,Delayed Release(Dr/Ec) 40 mg PO DAILYBB sucralfate 1 gram Tablet 1 g PO AC Centrum Silver Men 300-600-300 mcg Tablet 1 tab PO DAILY Eliquis 5 mg tablet 5 mg PO BID tamsulosin 0.4 mg Capsule 0.4 mg PO PM acetaminophen 650 mg Tablet Extended Release 650 mg PO Q8H PRN (Reason: Pain) prednisone 5 mg tablet 5 mg PO DAILY abiraterone [Zytiga] 250 mg tablet 250 mg PO QAM calcium carbonate-vitamin D3 [Calcium 600 + D(3)] 600 mg-10 mcg (400 unit) Tablet 1 tab PO DAILY Discharge Orders: Discharge Order (Routine); Ordered 05/28/23 Ordered By: Leo Miller Admission Data Admit Date/Time: 05/26/23 15:09 Attending Provider: Leo Miller Admit Provider: Zenia Alarcon Primary Care Provider: Kaz Rivas Other Providers: Zenia Alarcon; Dave Amezcua Other Interventions: Discharge Summary Assessment (RN) Last Done: 05/28/23 11:21
== END 2023-05-28 12:03 | disposition home or self-care (01) ==
LOC: EDINP 12:46 → ED 12:46 → SUATTDRO 15:09 → 2N 17:16

== ENCOUNTER 2024-01-25 22:48 | Observation (INO) ==
--- NOTE | 2024-01-25 23:51 | Emergency Department Note ---
Impression & Plan Intractable epigastric abdominal pain, Intractable vomiting ED Provider Note Name: STEPHAN KRUEGER Age: 73 Sex: Male Arrives Via: Walk-In Informant: Patient, ED Provider: Tariq Purdy MD Chief Complaint: Abdominal pain Impression: As per impressions above Medical Decision Makin-year-old gentleman arrives to the ER for acute epigastric abdominal pain with some radiation throughout the rest of the abdomen. Does have some tenderness palpation over the upper abdomen. There is an umbilical hernia which is uncomfortable but reducible. Patient is having episodes of emesis without any nausea. With IV narcotics and taken to CT for further evaluation. While awaiting CT read patient did require further IV narcotic and Zofran. Laboratory workup returning unremarkable. No evidence of infection at this time. Patient is not having any active chest pain. CT scan was read as essentially unremarkable by radiologist. I do have significant concern that there is some underlying pathology yet to be elucidated. Thus I have requested hospitalist to evaluate the patient for admission and further monitoring. At time of hospitalization patient has a soft abdomen does not have any peritonitis and with CT read being negative for acute finding I do not feel that consulting surgeon quite at this point would be indicated. Triage/Nursing Notes reviewed by Me Differential:Appendicitis, infections, diverticulitis, UTI, obstruction, mesenteric ischemia, aortic pathology, inflammatory bowel disease, renal colic, PUD, pancreatitis, biliary pathology, hernia, volvulus, constipation, as well as other pathologies. Vital Signs: reviewed and remarkable for minimal hypertension on arrival Interventions: Dilaudid IV x 2, Zofran IV x 2, normal saline bolus Labs:ED labs Reviewed by me and remarkable for no significant abnormalities Imaging:CT of the ab pelvis with IV contrast. As per radiologist. No acute concerning findings. Bony abnormalities concerning for metastasis (this is consistent with his known metastasis ( EKG:As per my interpretation. Indication epigastric pain. Normal sinus rhythm at 61 bpm QTc of 424. There is no ectopy nor ischemia. There are no previous EKGs for comparison. Cardiac/Tele Monitoring: Cardiac Monitoring: An Order was placed for continuous cardiac monitoring. The monitor shows a rate of 60 with a normal sinus rhythm. Cons[facility] will further evaluate and manage Plan: Disposition:Hospitalization. Condition: Good History of Present Illness: 72-year-old male arrives for evaluation of abdominal pain. He has severe sudden onset epigastric abdominal pain throughout the evening. Associated with repetitive episodes of vomiting. Radiation to mid abdomen. Some radiation of the chest. And history of GERD this is not similar. Did take some ibuprofen this earlier without improvement. History of cholecystectomy years ago. No falls, trauma, injuries. Past Medical History:See Below Home Medications:See Below Allergies:levaquin, oxycodone Vitals:Blood Pressure: 148/79, Pulse 61, RR 18, T 36.4C, O2 98% on RA Physical Exam: GENERAL: Patient is severely uncomfortable appearing and in moderate distress. RESPIRATORY: No dyspnea. Clear to auscultation and equal bilaterally. CARDIOVASCULAR: Regular rate and rhythm.No murmur appreciated. GASTROINTESTINAL: Severe tenderness palpation epigastrium. Mildly hyperactive bowel sounds. No hernia tenderness palpation and reducible. EXTREMITIES: Normal motion all extremities, no cyanosis, no edema. NEUROLOGIC: Alert and oriented. No focal neurologic deficits appreciated SKIN: No rash, no jaundice, no diaphoresis. PSYCH: Appropriate GCS: 15 ED Course: Times/Reassessments: Periodic episodes of spontaneous vomiting. Pain though has improved. Did have some hypoxia though did not aspirate. This was felt more secondary to the IV narcotics. Start Tariq Purdy MD Past Med/Surg History Problem List (Updated 06/28/23 @ 00:09 by Gonzalo Contreras) Intractable vomiting (Acute) Intractable epigastric abdominal pain (Acute) History of DVT (deep vein thrombosis) GERD (gastroesophageal reflux disease) Aggravated by recent Covid infection Prostate cancer Dx 1997; h/o radiation COURSE OF LUPRON COMPLETED Dyslipidemia Hypertension BORDERLINE , NO MEDS FOR Chest pain Atypical chest pain (Acute) Painful total knee replacement Strain of tendon of right rotator cuff Hip arthritis Status post right knee replacement (~04/2021) GERD (gastroesophageal reflux disease) Carpal tunnel syndrome, bilateral Encounter for pre-operative examination COVID-19 (Acute) Tear of meniscus of left knee Lymphedema of left lower extremity Pseudogout Status post carpal tunnel release Effusion, left knee Status post arthroscopic knee surgery Medical History History of DVT (deep vein thrombosis) Sciatica Radiation to right LE Hypertension BORDERLINE , NO MEDS FOR Dyslipidemia History of COVID-19 DX'ED MAR 22, 2021 - had post nasal drip, headache, body aches - resolved Osteoarthritis GERD (gastroesophageal reflux disease) Aggravated by recent Covid infection Prostate cancer Dx 1997; h/o radiation COURSE OF LUPRON COMPLETED Gout HX Surgical History History of hand surgery RIGHT CARPAL TUNNEL History of dental surgery History of prostate biopsy History of esophagogastroduodenoscopy (EGD) History of colonoscopy History of arthroscopy of left knee X 2 H/O shoulder surgery left H/O lumbar discectomy History of cholecystectomy Hx of tonsillectomy Family History Mother Diabetes Other Cancer Heart disease No family history of adverse response to anesthesia Social History Smoking Status: Never smoker Second Hand Exposure: No; Do You Dip or Chew Tobacco: No; Tobacco Cessation Education Requested by Patient: No Hx Alcohol Use: Yes Alcohol type: wine Hx Substance Use: No Preferred Language: Telugu Communication Ability: Effective 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: No Beliefs That Will Affect Care: None Current Living Situation: Spouse current occupational status: retired Other Information That Helps Us Care for You: No Feels Safe at Home: Yes Safety Concerns: Feels Safe At This Time Assistive Devices: Cane, Glasses, Hospital Bed, Oxygen - Continuous and Walker Allergies Allergies Allergy/AdvReac Type Severity Reaction Status Date / Time levofloxacin [From Levaquin] AdvReac Intermediate Muscle Verified 05/24/22 14:28 Pain, pain to achilles tendon oxycodone AdvReac Intermediate NAUSEA/VOMI Verified 05/24/22 14:28 TING Home Meds Home Medications Medication Instructions Recorded Confirmed omeprazole 40 mg capsule,delayed 40 mg PO DAILYBB 05/03/18 01/26/24 release sucralfate 1 gram tablet 1 g PO AC 09/13/20 01/26/24 tamsulosin 0.4 mg capsule 0.4 mg PO PM 03/22/21 01/26/24 acetaminophen 650 mg 650 mg PO Q8H PRN Pain 04/29/21 01/26/24 tablet,extended release apixaban 5 mg tablet (Eliquis) 5 mg PO BID 03/16/22 01/26/24 [id number] 300 mcg-K 60 1 tab PO DAILY 03/16/22 01/26/24 mcg-lycop 600 mcg-lutein 300 mcg tablet (Centrum Silver Men) abiraterone 250 mg tablet (Zytiga) 250 mg PO QAM 05/26/23 01/26/24 calcium 600 mg (as 1 tab PO DAILY 05/26/23 01/26/24 carbonate)-vitamin D3 10 mcg (400 unit) tablet (Calcium 600 + D(3)) prednisone 5 mg tablet 5 mg PO DAILY 05/26/23 01/26/24 Previous Rx's Medication Instructions Recorded amoxicillin 500 mg tablet 2,000 mg (4 x 500 mg) PO ONCE PRN 10/31/21 prophylaxis #4 tabs rosuvastatin 5 mg tablet 5 mg PO QAM #30 tabs 05/28/23 Results & Data (ED) Vital Signs Vital Signs - 24 hr 01/25/24 22:53 01/25/24 23:13 01/26/24 00:30 Temperature 36.4 C L Temperature Source Oral Pulse Rate 54 L 61 Pulse Rate [Finger] 67 Pulse Rate from SpO2 Sensor Pulse Rhythm [Finger] Regular Pulse Strength [Finger] Normal Respiratory Rate 18 12 Respiratory Effort / Characteristics Non-Labored Spontaneous Respiratory Depth Normal Respiratory Pattern Regular Blood Pressure 148/79 H Blood Pressure [Right Arm] 146/82 H Blood Pressure Mean 102 Blood Pressure Mean [Right Arm] 103 Blood Pressure Position [Right Arm] Lying Pulse Oximetry 98 98 Oxygen Delivery Method Room Air Nasal Cannula Oxygen Flow Rate 3 Sepsis Recent Fever Within 48 Hours No Sepsis New/Unexplained Change in Mental Status No Sepsis Action Taken by Nursing No Action Required 01/26/24 00:30 01/26/24 02:00 01/26/24 03:00 Temperature Temperature Source Pulse Rate 60 74 65 Pulse Rate [Finger] Pulse Rate from SpO2 Sensor 60 73 62 Pulse Rhythm [Finger] Pulse Strength [Finger] Respiratory Rate 18 14 17 Respiratory Effort / Characteristics Respiratory Depth Respiratory Pattern Blood Pressure 146/82 H 138/81 150/83 H Blood Pressure [Right Arm] Blood Pressure Mean 116 93 121 Blood Pressure Mean [Right Arm] Blood Pressure Position [Right Arm] Pulse Oximetry 92 94 96 Oxygen Delivery Method Oxygen Flow Rate Sepsis Recent Fever Within 48 Hours Sepsis New/Unexplained Change in Mental Status Sepsis Action Taken by Nursing 01/26/24 03:13 01/26/24 04:03 Temperature Temperature Source Pulse Rate 65 65 Pulse Rate [Finger] Pulse Rate from SpO2 Sensor 65 Pulse Rhythm [Finger] Pulse Strength [Finger] Respiratory Rate 15 Respiratory Effort / Characteristics Respiratory Depth Respiratory Pattern Blood Pressure 145/75 H Blood Pressure [Right Arm] Blood Pressure Mean 98 Blood Pressure Mean [Right Arm] Blood Pressure Position [Right Arm] Pulse Oximetry 97 Oxygen Delivery Method Oxygen Flow Rate Sepsis Recent Fever Within 48 Hours Sepsis New/Unexplained Change in Mental Status Sepsis Action Taken by Nursing Laboratory Data 01/26/24 06:28 01/26/24 06:28 Lab Results 01/25/24 01/26/24 01/26/24 Range/Units 23:53 00:10 00:50 WBC 6.79 (4.8-10.8) K/ul RBC 4.16 L (4.70-6.10) M/uL Hgb 12.4 L (14.0-18.0) g/dl POC Hgb 10.9 L (14.0-18.0) g/dl Hct 37.5 L (42.0-52.0) % POC Hct 32 L (42-52) % MCV 90.1 (80.0-100.0) fL MCH 29.8 (25.0-34.0) pg MCHC 33.1 (32.0-36.0) g/dL RDW Std Deviation 41.9 (36.4-46.3) fL RDW Coeff of Stef 12.8 (11.5-14.5) % Plt Count 151 (130-400) K/uL MPV 10.8 (9.4-12.4) fL Immature Gran % (Auto) 0.4 % Neut % (Auto) 81.0 % Lymph % (Auto) 10.8 % [place] % (Auto) 6.8 % Eos % (Auto) 0.7 % Baso % (Auto) 0.3 % Neut # (Auto) 5.50 (1.40-6.50) K/uL Lymph # (Auto) 0.73 L (1.20-3.40) K/uL [place] # (Auto) 0.46 (0.11-0.59) K/uL Eos # (Auto) 0.05 (0.00-0.50) K/uL Baso # (Auto) 0.02 (0.00-0.20) K/uL Immature Gran # (Auto) 0.03 (0.01-0.20) K/uL POC Sodium 141 (135-144) mmol/L Sodium 142 (136-145) mmol/L POC Potassium 3.5 (3.3-5.0) mmol/L Potassium 3.6 (3.5-5.1) mmol/L POC Chloride 104 (101-112) mmol/L Chloride 107 (98-107) mmol/L Carbon Dioxide 25 (21-32) mmol/L POC Total CO2 22 L (24-31) mmol/L Anion Gap 10 (3-11) POC Anion Gap 19.0 (16-25) mmol/L POC BUN 18 (7-18) mg/dl BUN 19 (6-23) mg/dl Creatinine 0.92 (0.6-1.4) mg/dl POC Creatinine 0.9 (0.6-1.3) mg/dl Est Cr Clr Drug Dosing 85.1 ml/min eGFR 87.83 BUN/Creatinine Ratio 20.7 H (10-20) Glucose 134 H (70-99(Fasting)) mg/dl POC Glucose (other) 133 H (70-99) mg/dl Estimat Average Glucose 117 mg/dl Hemoglobin A1c 5.7 H (4.5-5.6) % Calcium 9.3 (8.6-10.3) mg/dl POC Ioniz Calcium Jay 1.12 (1.12-1.32) mmol/l Magnesium 1.9 (1.7-2.4) mg/dl Total Bilirubin 0.4 (0.2-1.0) mg/dl AST 20 (13-39) U/L ALT 10 (7-52) U/L Alkaline Phosphatase 68 (34-104) U/L Troponin I High Sens 4.0 (0-20) pg/ml Total Protein 6.3 (6.0-8.3) gm/dl Albumin 3.8 (3.4-5.0) gm/dl Globulin 2.5 (2.5-4.0) gm/dl Albumin/Globulin Ratio 1.5 (0.9-2) Lipase 25 (11-82) U/L Urine Color Yellow Urine Appearance Clear (Clear) Urine pH 8.5 H (4.5-7.5) Ur Specific [place] 1.023 (1.000-1.030) Urine Protein Negative (Negative) Urine Glucose (UA) Negative (Negative) Urine Ketones 1+ H (Negative) Urine Blood Negative (Negative) Urine Nitrite Negative (Negative) Urine Bilirubin Negative (Negative) Urine Urobilinogen Negative (Negative) Ur Leukocyte Esterase Negative (Negative) Adenovirus (PCR) (NotDetected) B. pertussis DNA (PCR) (NotDetected) B.parapertussis DNA PCR (NotDetected) C. pneumoniae DNA (PCR) (NotDetected) Coronavirus OC43 (PCR) (NotDetected) Coronavirus HKU1 (PCR) (NotDetected) Coronavirus 229E (PCR) (NotDetected) SARS-CoV-2 (PCR) (NotDetected) Coronavirus NL63 (PCR) (NotDetected) Human Metapneumovir PCR (NotDetected) Influenza Type A (PCR) (NotDetected) Influenza Type B (PCR) (NotDetected) M. pneumoniae (PCR) (NotDetected) Parainfluenza 1 (PCR) (NotDetected) Parainfluenza 2 (PCR) (NotDetected) Parainfluenza 3 (PCR) (NotDetected) Parainfluenza 4 (PCR) (NotDetected) RSV (PCR) (NotDetected) Entero/Rhino (PCR) (NotDetected) 01/26/24 Range/Units 03:57 WBC (4.8-10.8) K/ul RBC (4.70-6.10) M/uL Hgb (14.0-18.0) g/dl POC Hgb (14.0-18.0) g/dl Hct (42.0-52.0) % POC Hct (42-52) % MCV (80.0-100.0) fL MCH (25.0-34.0) pg MCHC (32.0-36.0) g/dL RDW Std Deviation (36.4-46.3) fL RDW Coeff of Stef (11.5-14.5) % Plt Count (130-400) K/uL MPV (9.4-12.4) fL Immature Gran % (Auto) % Neut % (Auto) % Lymph % (Auto) % [place] % (Auto) % Eos % (Auto) % Baso % (Auto) % Neut # (Auto) (1.40-6.50) K/uL Lymph # (Auto) (1.20-3.40) K/uL [place] # (Auto) (0.11-0.59) K/uL Eos # (Auto) (0.00-0.50) K/uL Baso # (Auto) (0.00-0.20) K/uL Immature Gran # (Auto) (0.01-0.20) K/uL POC Sodium (135-144) mmol/L Sodium (136-145) mmol/L POC Potassium (3.3-5.0) mmol/L Potassium (3.5-5.1) mmol/L POC Chloride (101-112) mmol/L Chloride (98-107) mmol/L Carbon Dioxide (21-32) mmol/L POC Total CO2 (24-31) mmol/L Anion Gap (3-11) POC Anion Gap (16-25) mmol/L POC BUN (7-18) mg/dl BUN (6-23) mg/dl Creatinine (0.6-1.4) mg/dl POC Creatinine (0.6-1.3) mg/dl Est Cr Clr Drug Dosing ml/min eGFR BUN/Creatinine Ratio (10-20) Glucose (70-99(Fasting)) mg/dl POC Glucose (other) (70-99) mg/dl Estimat Average Glucose mg/dl Hemoglobin A1c (4.5-5.6) % Calcium (8.6-10.3) mg/dl POC Ioniz Calcium Jay (1.12-1.32) mmol/l Magnesium (1.7-2.4) mg/dl Total Bilirubin (0.2-1.0) mg/dl AST (13-39) U/L ALT (7-52) U/L Alkaline Phosphatase (34-104) U/L Troponin I High Sens (0-20) pg/ml Total Protein (6.0-8.3) gm/dl Albumin (3.4-5.0) gm/dl Globulin (2.5-4.0) gm/dl Albumin/Globulin Ratio (0.9-2) Lipase (11-82) U/L Urine Color Urine Appearance (Clear) Urine pH (4.5-7.5) Ur Specific [place] (1.000-1.030) Urine Protein (Negative) Urine Glucose (UA) (Negative) Urine Ketones (Negative) Urine Blood (Negative) Urine Nitrite (Negative) Urine Bilirubin (Negative) Urine Urobilinogen (Negative) Ur Leukocyte Esterase (Negative) Adenovirus (PCR) Not Detected (NotDetected) B. pertussis DNA (PCR) Not Detected (NotDetected) B.parapertussis DNA PCR Not Detected (NotDetected) C. pneumoniae DNA (PCR) Not Detected (NotDetected) Coronavirus OC43 (PCR) Not Detected (NotDetected) Coronavirus HKU1 (PCR) Not Detected (NotDetected) Coronavirus 229E (PCR) Not Detected (NotDetected) SARS-CoV-2 (PCR) Not Detected (NotDetected) Coronavirus NL63 (PCR) Not Detected (NotDetected) Human Metapneumovir PCR Not Detected (NotDetected) Influenza Type A (PCR) Not Detected (NotDetected) Influenza Type B (PCR) Not Detected (NotDetected) M. pneumoniae (PCR) Not Detected (NotDetected) Parainfluenza 1 (PCR) Not Detected (NotDetected) Parainfluenza 2 (PCR) Not Detected (NotDetected) Parainfluenza 3 (PCR) Not Detected (NotDetected) Parainfluenza 4 (PCR) Not Detected (NotDetected) RSV (PCR) Not Detected (NotDetected) Entero/Rhino (PCR) Not Detected (NotDetected) Administered Medications Apixaban (Apixaban 5 Mg Tablet) 5 mg PO BID TENA Stop: 02/25/24 04:29 Last Admin: 01/26/24 05:12 Dose: 5 mg Documented By: BRIANNA Discontinued Medications Hydromorphone HCl (Hydromorphone Inj 1 Mg/Ml Syringe) 1 mg IV NOW STA Stop: 01/25/24 23:42 Last Admin: 01/25/24 23:58 Dose: 1 mg Documented By: BRIANNA Hydromorphone HCl (Hydromorphone Inj 1 Mg/Ml Syringe) 1 mg IV NOW STA Stop: 01/26/24 02:38 Last Admin: 01/26/24 02:43 Dose: 1 mg Documented By: BRIANNA Sodium Chloride (Nss) 1,000 mls @ 999 mls/hr IV .Q1H1M ONE Stop: 01/26/24 02:24 Last Infusion: 01/26/24 03:27 Dose: Infused Documented By: Admin: 01/26/24 01:35 Dose: 999 mls/hr Documented By: BRIANNA Pantoprazole Sodium (Protonix) 40 mg in 10 mls @ 5 mls/min IV NOW STA Stop: 01/26/24 04:47 Last Admin: 01/26/24 05:16 Dose: 5 mls/min Documented By: BRIANNA Potassium Chloride 20 meq/ (Lactated Ringer's) 1,010 mls @ 60 mls/hr IV .[id number] STA Stop: 01/26/24 21:35 Last Admin: 01/26/24 05:19 Dose: 60 mls/hr Documented By: BRIANNA Magnesium Sulfate/Dextrose (Magnesium Sulfate / D5w) 1 gm in 100 mls @ 50 mls/hr IV ONE STA Stop: 01/26/24 06:44 Last Infusion: 01/26/24 07:20 Dose: Infused Documented By: Admin: 01/26/24 05:19 Dose: 50 mls/hr Documented By: BRIANNA Ioversol (Optiray 320 100ml) 92 ml IV ONCE ONE Stop: 01/26/24 00:43 Last Admin: 01/26/24 00:42 Dose: 92 ml Documented By: DILLON Ondansetron HCl (Ondansetron Inj 2 Mg/Ml 2 Ml Vial) 4 mg IV NOW STA Stop: 01/25/24 23:42 Last Admin: 01/25/24 23:58 Dose: 4 mg Documented By: BRIANNA Ondansetron HCl (Ondansetron Inj 2 Mg/Ml 2 Ml Vial) 4 mg IV NOW STA Stop: 01/26/24 03:35 Last Admin: 01/26/24 03:51 Dose: 4 mg Documented By: BRIANNA Imaging Data Radiologist's Impression: Abdomen/Pelvis CT 01/26/24 00:12 EXAM: CT abd pelvis IV con only CLINICAL HISTORY: pt reports severe upper abdominal pain starting aorund 8pm, reports nausea and vomiting hx of GERD 92 ml opti 320 PW/GS TECHNIQUE: Contiguous axial images were obtained from the level of the diaphragm to the pubic symphysis without and with intravenous contrast. Coronal and sagittal reconstructions were likewise performed and indicated to increase the sensitivity for detecting clinically relevant pathology. If IV contrast material had not been administered, the likelihood of detecting abnormalities relevant to the patient's condition would have been substantially decreased. CT scan was performed according to ALARA (as low as reasonable achievable). COMPARISON: None. FINDINGS: The visualized lung bases shows few atelectatic bands. The liver is normal in size and attenuation. No focal liver lesions are seen. There is no intra or extrahepatic biliary ductal dilatation. Hepatic vasculature is patent. The gallbladder is surgically remove. The spleen, pancreas, and adrenal glands are unremarkable. Few poorly defined hypodense lesion in spleen, largest measuring Approximately 17 x 19 mm is noted involving lower pole of spleen. The kidneys are normal in size and attenuation. There is no hydronephrosis or perinephric fat stranding. No renal calculi or renal masses are identified. The ureters are normal in caliber and no ureteral calculi are seen. The bladder is normal in contour. Pelvic viscera are unremarkable. No focal or diffuse bowel wall thickening or evidence of bowel obstruction is identified. Abdominal and pelvic vasculature is patent. No adenopathy or fluid collections are seen. No aggressive appearing osseous lesions are identified. Small fat containing umbilical hernia with size of defect measures about 10 x 10 mm IMPRESSION: Few Ill-defined hypodense lesions involving spine as described- nonspecific, possible infective etiology. Small fat containing umbilical hernia. No other intra-abdominal abnormality seen. Electronically signed by Omar Rios 01-26-2024 03:16 AM Chest X-Ray 01/26/24 03:31 EXAM: XR chest 1V portable CLINICAL HISTORY: LOW O2 WTW TECHNIQUE: An X-ray image of the chest is obtained in AP projection. COMPARISON: Previous study dated 05/26/2023. FINDINGS: Pulmonary Parenchyma: Prominent bronchovascular markings on both sides could be related to pulmonary congestion. No evidence of consolidation, collapse, or focal opacities. No pulmonary nodules were identified. Subtle blunting of left costophrenic angle. Heart and Mediastinum: Mild cardiomegaly. No mediastinal widening or masses. No hilar or mediastinal lymphadenopathy. Bony Thorax: The bony thorax appears intact without fractures or deformities. Soft Tissues: Right diaphragmatic arm, a normal variant. IMPRESSION: 1. Mild cardiomegaly with mild sheng-hilar pulmonary congestion. Interval stable. 2. Possible minimal left pleural effusion. Interval new finding. 3. No consolidation, pneumothorax. [facility] ER was called at [phone] at 3:21 AM HUMAN PROJECTILE, 01/26/2024 and Jersey Delacruz was informed regarding the presence of Important Medical Findings on this report. Electronically signed by Ronald Rand 01-26-2024 04:28 AM Discharge Plan Visit Data Chief Complaint: Abdominal Pain Stated Complaint: ABD PAIN, VOMITING, NAUSEA, ED Provider: Tariq Purdy Discharge Problem: Intractable epigastric abdominal pain, Intractable vomiting Patient Disposition: Admitted As Inpatient Discharge Instructions Interventions: ED Discharge Assessment Last Done: 01/26/24 05:46
[2024-01-25] MEDS: HYDROmorphone INJ 1 MG/ML SYRINGE IV STA (23:58)
[2024-01-25] MEDS: ONDANSETRON INJ 2 MG/ML 2 ML VIAL IV STA (23:58)
[2024-01-26 00:22] LABS: iSTAT Creatinine 0.9 mg/dl (0.6-1.3); iSTAT Hemoglobin 10.9 g/dl (14.0-18.0); iSTAT Ionized Calcium 1.12 mmol/l (1.12-1.32); iSTAT Potassium 3.5 mmol/L (3.3-5.0)
[2024-01-26 00:24] LABS: Basophils # (auto) 0.02 K/uL (0.00-0.20); Basophils % (auto) 0.3 %; Eosinophils # (auto) 0.05 K/uL (0.00-0.50); Eosinophils % (auto) 0.7 %; Hematocrit (blood only) 37.5 % (42.0-52.0); Hemoglobin 12.4 g/dl (14.0-18.0); Immature Granulocytes # (auto) 0.03 K/uL (0.01-0.20); Immature Granulocytes % (auto) 0.4 %; Lymphocytes # (auto) 0.73 K/uL (1.20-3.40); Lymphocytes % (auto) 10.8 %; Mean Corpuscular Hemoglobin 29.8 pg (25.0-34.0); Mean Corpuscular Hgb Conc 33.1 g/dL (32.0-36.0); Mean Corpuscular Volume 90.1 fL (80.0-100.0); Mean Platelet Volume 10.8 fL (9.4-12.4); Monocytes # (auto) 0.46 K/uL (0.11-0.59); Monocytes % (auto) 6.8 %; Platelet Count 151 K/uL (130-400); RDW Coefficient of Variation 12.8 % (11.5-14.5); RDW Standard Deviation 41.9 fL (36.4-46.3); Red Blood Count 4.16 M/uL (4.70-6.10); White Blood Count 6.79 K/ul (4.8-10.8)
[2024-01-26 00:34] LABS: Albumin Globulin Ratio 1.5 (0.9-2); Albumin Level 3.8 gm/dl (3.4-5.0); BUN Creatinine Ratio 20.7 (10-20); Bilirubin,Total 0.4 mg/dl (0.2-1.0); Calcium 9.3 mg/dl (8.6-10.3); Creatinine Clr Calc Pharmacy 85.1 ml/min; Globulin 2.5 gm/dl (2.5-4.0); Potassium 3.6 mmol/L (3.5-5.1); Total Protein 6.3 gm/dl (6.0-8.3)
[2024-01-26] MEDS: OPTIRAY 320 100ml IV ONE (00:42)
[2024-01-26 01:03] LABS: Appearance Urine Clear (Clear); Bilirubin Urine Negative (Negative); Blood Urine Negative (Negative); Color Urine Yellow; Glucose Urine UA Negative (Negative); Ketones Urine 1+ (Negative); Leukocyte Esterase Urine Negative (Negative); Nitrite Urine Negative (Negative); Protein Urine Negative (Negative); Specific Gravity Urine 1.023 (1.000-1.030); Urobilinogen Urine Negative (Negative); pH Urine 8.5 (4.5-7.5)
[2024-01-26] MEDS: SODIUM CHLORIDE 0.9% 1,000 ML IV ONE (01:35)
[2024-01-26] MEDS: HYDROmorphone INJ 1 MG/ML SYRINGE IV STA (02:43)
--- NOTE | 2024-01-26 03:17 | CT Scan Report ---
EXAM: CT abd pelvis IV con only CLINICAL HISTORY: pt reports severe upper abdominal pain starting aorund 8pm, reports nausea and vomiting hx of GERD 92 ml opti 320 PW/GS TECHNIQUE: Contiguous axial images were obtained from the level of the diaphragm to the pubic symphysis without and with intravenous contrast. Coronal and sagittal reconstructions were likewise performed and indicated to increase the sensitivity for detecting clinically relevant pathology. If IV contrast material had not been administered, the likelihood of detecting abnormalities relevant to the patient's condition would have been substantially decreased. CT scan was performed according to ALARA (as low as reasonable achievable). COMPARISON: None. FINDINGS: The visualized lung bases shows few atelectatic bands. The liver is normal in size and attenuation. No focal liver lesions are seen. There is no intra or extrahepatic biliary ductal dilatation. Hepatic vasculature is patent. The gallbladder is surgically remove. The spleen, pancreas, and adrenal glands are unremarkable. Few poorly defined hypodense lesion in spleen, largest measuring Approximately 17 x 19 mm is noted involving lower pole of spleen. The kidneys are normal in size and attenuation. There is no hydronephrosis or perinephric fat stranding. No renal calculi or renal masses are identified. The ureters are normal in caliber and no ureteral calculi are seen. The bladder is normal in contour. Pelvic viscera are unremarkable. No focal or diffuse bowel wall thickening or evidence of bowel obstruction is identified. Abdominal and pelvic vasculature is patent. No adenopathy or fluid collections are seen. No aggressive appearing osseous lesions are identified. Small fat containing umbilical hernia with size of defect measures about 10 x 10 mm IMPRESSION: Few Ill-defined hypodense lesions involving spine as described- nonspecific, possible infective etiology. Small fat containing umbilical hernia. No other intra-abdominal abnormality seen. Electronically signed by Omar Rios 01-26-2024 03:16 AM
[2024-01-26] MEDS: ONDANSETRON INJ 2 MG/ML 2 ML VIAL IV STA (03:51)
[2024-01-26 03:53] LABS: Magnesium 1.9 mg/dl (1.7-2.4)
--- NOTE | 2024-01-26 04:16 | History & Physical Report ---
Date of Service January 26, 2024 Assessment & Plan (1) Abdominal pain: Plan: Stomach upset ? Possible uncontrolled GERD given chronic prednisone Rx to prevent side effects from Zytiga Rx, history of metastatic prostate cancer hypertension, slightly elevated, patient not on maintenance medications hyperlipidemia, on statin Rx chronic anemia, hemoglobin at baseline history DVT on Eliquis recent right fibula fracture, patient predisposed by chronic steroid Rx. Steroid-induced hyperglycemia rule out DM OBS Medical Analgesia Clear liquid diet for now Increase PPI frequency to twice daily dosing Check hemoglobin A1c DVT prophylaxis. Eliquis Full code Patient requesting updates providers. Ms. Roxi Aponte, contact #[phone]. Text document was generated using [employer] voice recognition software. It may contain grammatical or spelling errors. Kindly contact undersigned for clarification of any documentation item in question. History of Present Illness Chief Complaint: Abdominal pain Primary Care Provider: Kaz Rivas MD History obtained from patient, family, and records. Medical history significant for hypertension, hyperlipidemia, GERD, metastatic prostate cancer on Zytiga/steroid Rx, chronic anemia (baseline hemoglobin 12- 13), history DVT on Eliquis, recent right fibula fracture, pseudogout. 2 weeks ago, patient noted achy right ankle pain without recollection of trauma. Outpatient x-ray showed possible avulsion fracture of right fibula. Boot immobilization recommended. Possible stress reaction/fracture asked where outpatient Orthopedics note from 01/20 Patient had sudden onset achy abdominal pain last night after dinner. Associated with bilious emesis. Denies chest pain, SOB, headache. Denies black/bloody stools. Denies inordinate OTC NSAID intake. 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 Allergies Allergy/AdvReac Type Severity Reaction Status Date / Time levofloxacin [From Levaquin] AdvReac Intermediate Muscle Verified 05/24/22 14:28 Pain, pain to achilles tendon oxycodone AdvReac Intermediate NAUSEA/VOMI Verified 05/24/22 14:28 TING Home Medications Medication Instructions Recorded Confirmed Type omeprazole 40 mg capsule,delayed 40 mg PO DAILYBB 05/03/18 01/26/24 History release sucralfate 1 gram tablet 1 g PO AC 09/13/20 01/26/24 History tamsulosin 0.4 mg capsule 0.4 mg PO PM 03/22/21 01/26/24 History acetaminophen 650 mg 650 mg PO Q8H PRN Pain 04/29/21 01/26/24 History tablet,extended release amoxicillin 500 mg tablet 2,000 mg (4 x 500 mg) PO ONCE PRN 10/31/21 01/26/24 Rx prophylaxis #4 tabs apixaban 5 mg tablet (Eliquis) 5 mg PO BID 03/16/22 01/26/24 History inrlhjcz-xp-uxzrz 300 mcg-K 60 1 tab PO DAILY 03/16/22 01/26/24 History mcg-lycop 600 mcg-lutein 300 mcg tablet (Centrum Silver Men) abiraterone 250 mg tablet (Zytiga) 250 mg PO QAM 05/26/23 01/26/24 History calcium 600 mg (as 1 tab PO DAILY 05/26/23 01/26/24 History carbonate)-vitamin D3 10 mcg (400 unit) tablet (Calcium 600 + D(3)) prednisone 5 mg tablet 5 mg PO DAILY 05/26/23 01/26/24 History rosuvastatin 5 mg tablet 5 mg PO QAM #30 tabs 05/28/23 01/26/24 Rx Past Med/Surg History Problem List (Updated 06/28/23 @ 00:09 by Gonzalo Contreras) Abdominal pain Intractable vomiting (Acute) Intractable epigastric abdominal pain (Acute) History of DVT (deep vein thrombosis) GERD (gastroesophageal reflux disease) Aggravated by recent Covid infection Prostate cancer Dx 1997; h/o radiation COURSE OF LUPRON COMPLETED Dyslipidemia Hypertension BORDERLINE , NO MEDS FOR Chest pain Atypical chest pain (Acute) Painful total knee replacement Strain of tendon of right rotator cuff Hip arthritis Status post right knee replacement (~04/2021) GERD (gastroesophageal reflux disease) Carpal tunnel syndrome, bilateral Encounter for pre-operative examination COVID-19 (Acute) Tear of meniscus of left knee Lymphedema of left lower extremity Pseudogout Status post carpal tunnel release Effusion, left knee Status post arthroscopic knee surgery Medical History History of DVT (deep vein thrombosis) Sciatica Radiation to right LE Hypertension BORDERLINE , NO MEDS FOR Dyslipidemia History of COVID-19 DX'ED MAR 22, 2021 - had post nasal drip, headache, body aches - resolved Osteoarthritis GERD (gastroesophageal reflux disease) Aggravated by recent Covid infection Prostate cancer Dx 1997; h/o radiation COURSE OF LUPRON COMPLETED Gout HX Surgical History History of hand surgery RIGHT CARPAL TUNNEL History of dental surgery History of prostate biopsy History of esophagogastroduodenoscopy (EGD) History of colonoscopy History of arthroscopy of left knee X 2 H/O shoulder surgery left H/O lumbar discectomy History of cholecystectomy Hx of tonsillectomy Family History Mother Diabetes Other Cancer Heart disease No family history of adverse response to anesthesia Social History Smoking Status: Never smoker Second Hand Exposure: No; Do You Dip or Chew Tobacco: No; Tobacco Cessation Education Requested by Patient: No Hx Alcohol Use: Yes Alcohol type: wine Hx Substance Use: No Preferred Language: Welsh Communication Ability: Effective Rfid Specialist Required: No Beliefs That Will Affect Care: None Current Living Situation: Spouse current occupational status: retired Other Information That Helps Us Care for You: No Feels Safe at Home: Yes Safety Concerns: Feels Safe At This Time Assistive Devices: Cane, Glasses, Hospital Bed, Oxygen - Continuous and Walker Review of Systems Review of Systems: GENERAL: Slightly uncomfortable, no respiratory distress SKIN: Pallor, warm HEENT: Pale palpebral conjunctivae, no ptosis, dry buccal mucosa NECK : Supple, no tenderness CHEST : Decreased breath sounds, no tenderness HEART : RRR, no obvious murmurs ABDOMEN: Some distention, nontender EXTREMITIES : RLE splint, no other conspicuous deformities noted NEUROLOGIC : Coherent, no facial asymmetry, no other gross focality Results & Data Results & Data Vital Signs (Past 12 Hours) Vital Signs Temp Pulse Pulse Resp BP BP Pulse Ox 01/26/24 03:13 65 01/26/24 03:00 65 17 150/83 H 96 01/26/24 02:00 74 14 138/81 94 01/26/24 00:30 60 18 146/82 H 92 01/26/24 00:30 67 12 146/82 H 98 01/25/24 23:13 61 01/25/24 22:53 36.4 C L 54 L 18 148/79 H 98 O2 Del Method O2 Flow Rate 01/26/24 03:13 01/26/24 03:00 01/26/24 02:00 01/26/24 00:30 01/26/24 00:30 Nasal Cannula 3 01/25/24 23:13 01/25/24 22:53 Room Air Laboratory Results Laboratory Results WBC 6.79 K/ul (4.8-10.8) 01/25/24 23:53 RBC 4.16 M/uL (4.70-6.10) L 01/25/24 23:53 Hgb 12.4 g/dl (14.0-18.0) L 01/25/24 23:53 POC Hgb 10.9 g/dl (14.0-18.0) L 01/26/24 00:10 Hct 37.5 % (42.0-52.0) L 01/25/24 23:53 POC Hct 32 % (42-52) L 01/26/24 00:10 MCV 90.1 fL (80.0-100.0) 01/25/24 23:53 MCH 29.8 pg (25.0-34.0) 01/25/24 23:53 MCHC 33.1 g/dL (32.0-36.0) 01/25/24 23:53 RDW Std Deviation 41.9 fL (36.4-46.3) 01/25/24 23:53 RDW Coeff of Stef 12.8 % (11.5-14.5) 01/25/24 23:53 Plt Count 151 K/uL (130-400) 01/25/24 23:53 MPV 10.8 fL (9.4-12.4) 01/25/24 23:53 Immature Gran % (Auto) 0.4 % 01/25/24 23:53 Neut % (Auto) 81.0 % 01/25/24 23:53 Lymph % (Auto) 10.8 % 01/25/24 23:53 [place] % (Auto) 6.8 % 01/25/24 23:53 Eos % (Auto) 0.7 % 01/25/24 23:53 Baso % (Auto) 0.3 % 01/25/24 23:53 Neut # (Auto) 5.50 K/uL (1.40-6.50) 01/25/24 23:53 Lymph # (Auto) 0.73 K/uL (1.20-3.40) L 01/25/24 23:53 [place] # (Auto) 0.46 K/uL (0.11-0.59) 01/25/24 23:53 Eos # (Auto) 0.05 K/uL (0.00-0.50) 01/25/24 23:53 Baso # (Auto) 0.02 K/uL (0.00-0.20) 01/25/24 23:53 Immature Gran # (Auto) 0.03 K/uL (0.01-0.20) 01/25/24 23:53 POC Sodium 141 mmol/L (135-144) 01/26/24 00:10 Sodium 142 mmol/L (136-145) 01/25/24 23:53 POC Potassium 3.5 mmol/L (3.3-5.0) 01/26/24 00:10 Potassium 3.6 mmol/L (3.5-5.1) 01/25/24 23:53 POC Chloride 104 mmol/L (101-112) 01/26/24 00:10 Chloride 107 mmol/L (98-107) 01/25/24 23:53 Carbon Dioxide 25 mmol/L (21-32) 01/25/24 23:53 POC Total CO2 22 mmol/L (24-31) L 01/26/24 00:10 Anion Gap 10 (3-11) 01/25/24 23:53 POC Anion Gap 19.0 mmol/L (16-25) 01/26/24 00:10 POC BUN 18 mg/dl (7-18) 01/26/24 00:10 BUN 19 mg/dl (6-23) 01/25/24 23:53 Creatinine 0.92 mg/dl (0.6-1.4) 01/25/24 23:53 POC Creatinine 0.9 mg/dl (0.6-1.3) 01/26/24 00:10 Est Cr Clr Drug Dosing 85.1 ml/min 01/25/24 23:53 eGFR 87.83 01/25/24 23:53 BUN/Creatinine Ratio 20.7 (10-20) H 01/25/24 23:53 Glucose 134 mg/dl (70-99(Fasting)) H 01/25/24 23:53 POC Glucose (other) 133 mg/dl (70-99) H 01/26/24 00:10 Calcium 9.3 mg/dl (8.6-10.3) 01/25/24 23:53 POC Ioniz Calcium Jay 1.12 mmol/l (1.12-1.32) 01/26/24 00:10 Magnesium 1.9 mg/dl (1.7-2.4) 01/25/24 23:53 Total Bilirubin 0.4 mg/dl (0.2-1.0) 01/25/24 23:53 AST 20 U/L (13-39) 01/25/24 23:53 ALT 10 U/L (7-52) 01/25/24 23:53 Alkaline Phosphatase 68 U/L (34-104) 01/25/24 23:53 Troponin I High Sens 4.0 pg/ml (0-20) 01/25/24 23:53 Total Protein 6.3 gm/dl (6.0-8.3) 01/25/24 23:53 Albumin 3.8 gm/dl (3.4-5.0) 01/25/24 23:53 Globulin 2.5 gm/dl (2.5-4.0) 01/25/24 23:53 Albumin/Globulin Ratio 1.5 (0.9-2) 01/25/24 23:53 Lipase 25 U/L (11-82) 01/25/24 23:53 Urine Color Yellow 01/26/24 00:50 Urine Appearance Clear (Clear) 01/26/24 00:50 Urine pH 8.5 (4.5-7.5) H 01/26/24 00:50 Ur Specific [place] 1.023 (1.000-1.030) 01/26/24 00:50 Urine Protein Negative (Negative) 01/26/24 00:50 Urine Glucose (UA) Negative (Negative) 01/26/24 00:50 Urine Ketones 1+ (Negative) H 01/26/24 00:50 Urine Blood Negative (Negative) 01/26/24 00:50 Urine Nitrite Negative (Negative) 01/26/24 00:50 Urine Bilirubin Negative (Negative) 01/26/24 00:50 Urine Urobilinogen Negative (Negative) 01/26/24 00:50 Ur Leukocyte Esterase Negative (Negative) 01/26/24 00:50 Impressions Abdomen/Pelvis CT 01/26/24 00:12 EXAM: CT abd pelvis IV con only CLINICAL HISTORY: pt reports severe upper abdominal pain starting aorund 8pm, reports nausea and vomiting hx of GERD 92 ml opti 320 PW/GS TECHNIQUE: Contiguous axial images were obtained from the level of the diaphragm to the pubic symphysis without and with intravenous contrast. Coronal and sagittal reconstructions were likewise performed and indicated to increase the sensitivity for detecting clinically relevant pathology. If IV contrast material had not been administered, the likelihood of detecting abnormalities relevant to the patient's condition would have been substantially decreased. CT scan was performed according to ALARA (as low as reasonable achievable). COMPARISON: None. FINDINGS: The visualized lung bases shows few atelectatic bands. The liver is normal in size and attenuation. No focal liver lesions are seen. There is no intra or extrahepatic biliary ductal dilatation. Hepatic vasculature is patent. The gallbladder is surgically remove. The spleen, pancreas, and adrenal glands are unremarkable. Few poorly defined hypodense lesion in spleen, largest measuring Approximately 17 x 19 mm is noted involving lower pole of spleen. The kidneys are normal in size and attenuation. There is no hydronephrosis or perinephric fat stranding. No renal calculi or renal masses are identified. The ureters are normal in caliber and no ureteral calculi are seen. The bladder is normal in contour. Pelvic viscera are unremarkable. No focal or diffuse bowel wall thickening or evidence of bowel obstruction is identified. Abdominal and pelvic vasculature is patent. No adenopathy or fluid collections are seen. No aggressive appearing osseous lesions are identified. Small fat containing umbilical hernia with size of defect measures about 10 x 10 mm IMPRESSION: Few Ill-defined hypodense lesions involving spine as described- nonspecific, possible infective etiology. Small fat containing umbilical hernia. No other intra-abdominal abnormality seen. Electronically signed by Omar Rios 01-26-2024 03:16 AM Diagnostic Findings Chest x-ray as per my interpretation : Cardiomegaly
--- NOTE | 2024-01-26 04:29 | XRay Report ---
EXAM: XR chest 1V portable CLINICAL HISTORY: LOW O2 WTW TECHNIQUE: An X-ray image of the chest is obtained in AP projection. COMPARISON: Previous study dated 05/26/2023. FINDINGS: Pulmonary Parenchyma: Prominent bronchovascular markings on both sides could be related to pulmonary congestion. No evidence of consolidation, collapse, or focal opacities. No pulmonary nodules were identified. Subtle blunting of left costophrenic angle. Heart and Mediastinum: Mild cardiomegaly. No mediastinal widening or masses. No hilar or mediastinal lymphadenopathy. Bony Thorax: The bony thorax appears intact without fractures or deformities. Soft Tissues: Right diaphragmatic arm, a normal variant. IMPRESSION: 1. Mild cardiomegaly with mild sheng-hilar pulmonary congestion. Interval stable. 2. Possible minimal left pleural effusion. Interval new finding. 3. No consolidation, pneumothorax. 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 Electronically signed by Ronald Rand 01-26-2024 04:28 AM
[2024-01-26] MEDS ORDERED: ACETAMINOPHEN 325 MG TAB PO PRN (04:30)
[2024-01-26] MEDS ORDERED: traMADol HCL 50 MG TABLET PO PRN (04:30)
[2024-01-26] MEDS ORDERED: LORazepam 0.5 MG TAB PO PRN (04:30)
[2024-01-26 05:10] LABS: Adenovirus PCR Not Detected (NotDetected); Bordetella parapertussis PCR Not Detected (NotDetected); Bordetella pertussis PCR Not Detected (NotDetected); Chlamydia pneumoniae PCR Not Detected (NotDetected); Coronavirus 229E PCR Not Detected (NotDetected); Coronavirus CoV-2 (COVID19)PCR Not Detected (NotDetected); Coronavirus HKU1 PCR Not Detected (NotDetected); Coronavirus NL63 PCR Not Detected (NotDetected); Coronavirus OC43PCR Not Detected (NotDetected); Human Metapneumovirus PCR Not Detected (NotDetected); Influenza A PCR Not Detected (NotDetected); Influenza B PCR Not Detected (NotDetected); Mycoplasma pneumoniae PCR Not Detected (NotDetected); Parainfluenza Virus 1 PCR Not Detected (NotDetected); Parainfluenza Virus 2 PCR Not Detected (NotDetected); Parainfluenza Virus 3 PCR Not Detected (NotDetected); Parainfluenza Virus 4 PCR Not Detected (NotDetected); Respiratory Syncytial VirusPCR Not Detected (NotDetected); Rhinovirus/Enterovirus PCR Not Detected (NotDetected)
[2024-01-26] MEDS: APIXABAN 5 MG TABLET PO SCH (05:12)
[2024-01-26] MEDS: PANTOprazole 40 MG/10 ML SYR IV STA (05:16)
[2024-01-26] MEDS: POTASSIUM CHLORIDE 20 MEQ in LACTATED RINGER'S 1,000 ML IV STA (05:19)
[2024-01-26] MEDS: MAGNESIUM SULFATE / D5W 1 GM/100 ML BAG IV STA (05:19)
[2024-01-26 06:39] LABS: HCO3 VBG 27 mmol/L; Oxygen Saturation VBG 76.2 %; PCO2 VBG 48 mmHg (38-50); PO2 VBG 49 mmHg; pH VBG 7.36 (7.36-7.41)
[2024-01-26 06:47] LABS: Basophils # (auto) 0.01 K/uL (0.00-0.20); Basophils % (auto) 0.2 %; Hematocrit (blood only) 34.2 % (42.0-52.0); Hemoglobin 11.8 g/dl (14.0-18.0); Immature Granulocytes # (auto) 0.02 K/uL (0.01-0.20); Immature Granulocytes % (auto) 0.3 %; Lymphocytes % (auto) 6.3 %; Mean Corpuscular Hemoglobin 30.6 pg (25.0-34.0); Mean Corpuscular Hgb Conc 34.5 g/dL (32.0-36.0); Mean Corpuscular Volume 88.8 fL (80.0-100.0); Mean Platelet Volume 10.3 fL (9.4-12.4); Monocytes # (auto) 0.47 K/uL (0.11-0.59); Monocytes % (auto) 7.4 %; Neutrophils # (auto) 5.42 K/uL (1.40-6.50); Neutrophils % (auto) 85.8 %; Platelet Count 159 K/uL (130-400); RDW Coefficient of Variation 12.8 % (11.5-14.5); RDW Standard Deviation 41.8 fL (36.4-46.3); Red Blood Count 3.85 M/uL (4.70-6.10); White Blood Count 6.32 K/ul (4.8-10.8)
[2024-01-26 07:05] LABS: BUN Creatinine Ratio 24.6 (10-20); Calcium 8.7 mg/dl (8.6-10.3); Creatinine Clr Calc Pharmacy 104.7 ml/min
[2024-01-26 07:31] LABS: Estimated Average Glucose 117 mg/dl; Hemoglobin A1C 5.7 % (4.5-5.6)
[2024-01-26] MEDS: CALCIUM 600MG + VIT D 400 IU TAB PO SCH (08:46)
[2024-01-26] MEDS: predniSONE 5 MG TAB PO SCH (08:46)
[2024-01-26] MEDS: ROSUVASTATIN CALCIUM 5 MG TAB PO SCH (09:38)
[2024-01-26] MEDS: SUCRALFATE 1 GM TAB PO SCH (09:38)
[2024-01-26] MEDS: PROMETHAZINE 6.25 MG/50.25 ML BAG IV PRN (09:38)
--- OUTSIDE RECORDS SUMMARY | 2024-01-26 10:39 | External Medical Summary | Summary of Care ---
Author Name Unknown Organization [facility] Address [address] [place] [address] Phone [phone] Care Team Providers Care Ux Design Manager Name Role Phone Evelyn FRANZ MD, Kaz Canela Primary Care Provider [phone] Reason for Visit * Reason Comments Patient Assistance Program Encounter Details Date Type Department Care Team (Late st Contact Info) Description 06/07/2022 Documentation Hematology Oncology [facility] [address] [place] [address] Stan Parra MD [address] [place] [address] Allergies Active Allergy Reactions Criticality Noted Date Comments Levofloxacin Muscle pain 02/07/2018 Oxycodone Nausea/vomiting 02/07/2018 documented as of this encounter (statuses as of 01/22/2024) Medications Multiple Vitamins-Minera ls (CENTRUM SILVER 50+MEN) TABS Take by mouth. Activ e Acetaminophen ER 650 MG Oral Tablet Extended Release Take 1 Tablet by mouth every 8 hours as needed for Pain, Severe. 30 Tablet 04/06/19 22 Active Vitamin D3 10 MCG (400 UNIT) Oral Capsule Take 1 Capsule by mouth in the morning. 2022 Discontinued Sucralfate 1 GM Oral Tablet (Carafate)Indic ations:Gastriti s TAKE 1 TABLET 1 HOUR BEFOREMEALS AND AT BEDTIME, DISSOLVE IN WATER 120 Tablet 5 03/14/19 22 2022 Discontinued Rosuvastatin Calcium 5 MG Oral Tablet (Crestor) Take by mouth 1 Tablet in the morning. 90 Tablet 11 10/06/19 22 2023 Discontinued(R efill) traMADol HCl 50 MG Oral Tablet (Ultram)Indicat ions:Closed nondisplaced fracture of first cervical vertebra with delayed healing, unspecified fracture morphology, subsequent encounter,Close d fracture of second lumbar vertebra with routine healing, unspecified fracture morphology, subsequent encounter,Compr ession fracture of body of thoracic vertebra (HCC) Take 1 Tablet (50 mg) by mouth every 8 hours as needed for Pain, Severe. 20 Tablet 02/17/20 22 2023 Discontinued(M edication List Clean Up) Methocarbamol 500 MG Oral Tablet (Robamol) Take 1 Tablet by mouth 2 times a day as needed for Muscle spasms. 2023 Discontinued(M edication List Clean Up) Apixaban 5 MG Oral Tablet (Eliquis) one tablet by mouth twice daily 180 Tablet 3 04/20/19 23 2023 Discontinued Tamsulosin HCl 0.4 MG Oral Capsule (Flomax)Indicat ions:in evening Take 1 Capsule by mouth in the morning. 90 Capsule 3 04/20/19 23 2022 Discontinued(R efill) Calcium 600+D Plus Minerals 600-400 MG-UNIT Oral Tablet ChewableIndicat ions:Malignant neoplasm of prostate (HCC) Take 2 Tablets by mouth in the morning. 60 Tablet 2 05/23/19 23 2022 Discontinued(R efill) predniSONE 5 MG Oral Tablet (Deltasone)Agnieszka cations:Maligna nt neoplasm of prostate (HCC) Take 1 Tablet by mouth in the morning. 30 Tablet 5 3 1:34 PM EDT 05/26/19 23 2022 Discontinued(R efill) Abiraterone Acetate 250 MG Oral Tablet (Zytiga)Indicat ions:Malignant neoplasm of prostate (HCC) Take 4 Tablets by mouth in the morning on an empty stomach (1 hour before or 2 hours after food). 120 Tablet 5 3 4:14 PM EDT 05/26/19 23 2022 Discontinued(M edication/Dose Changed) Omeprazole 40 MG Oral Capsule Delayed Release (PriLOSEC)Indic ations:Reflux esophagitis,Gas tritis without bleeding, unspecified chronicity, unspecified gastritis type TAKE 1 CAPSULE DAILY 1 HOURBEFORE THE FIRST MEAL OF THE DAY 90 Capsule 1 06/07/19 23 2022 Discontinued Eligard 22.5 MG Subcutaneous Kit (leuprolide acetate (3 Month))Indicati ons:Metastatic malignant neoplasm to prostate (HCC) Inject 22.5 mg under the skin every 3 months for 4 doses 4 Kit 3 11:24 AM EDT 06/07/19 23 2022 Discontinued(R efill) documented as of this encounter (statuses as of 01/22/2024) Active Problems Problem Noted Date Diagnosed Date [...] Special screening for malignant neoplasms, colon 04/15/2003 Overview (03/19/2006): Colonoscopy 03/02/06--hyperplastic polyps--repeat 5 years Family history of other cardiovascular diseases 04/15/2003 Overview (06/03/2015): ICD-10 update of inactive term Dyslipidemia, goal LDL below 130 04/15/2003 FAM HX-DIABETES MELLITUS 05/30/2001 Reflux esophagitis Dyslipidemia documented as of this encounter (statuses as of 01/22/2024) Resolved Problems Problem Noted Date Diagnosed Date Resolved Date Supraclavicular lymphadenopathy 02/11/2016 01/02/2018 Screening for prostate cancer 04/15/2003 05/20/2008 Overview (05/20/2008): Resolved per Screening Diagnosis Protocol #6 Acute cholecystitis 11/25/2002 05/07/19 19 Diaphragmatic hernia 019 documented as of this encounter (statuses as of 01/22/2024) Immunizations Name Administration Dates Next Due COVID-19 mRNA, LNP-s, No Pre serve, 2-Dose Series (Moderna) 05/21/2020,04/23/2020 COVID-19, LNP-s, No Preserve , Rodriguez-sucrose, Ages 12+ (Pfizer) 04/06/2021 Pneumococcal Conjugate Vacc, 13 Valent (Prevnar) 01/12/2016 Pneumococcal Polysaccharide PPV23 (Pneumovax) 01/02/2018 Season Influenza, Quad, PF, Adjuvanted, 65+ Yrs, IM (FLUAD) 12/18/2019 Seasonal Influenza Vac., MDV , IM, 0.5 mL (Fluzone) 04/17/2014,01/27/2013,11/27/2008,01/15 Seasonal Influenza, High Dos e, Trivalent, PF, IM (Fluzone HD) 12/03/2023,12/01/2016 Seasonal Influenza, PF, 6 M & above, IM , (FluLaval or Fluzone) 11/22/2018,01/02/2018 Seasonal Influenza, Quadriva lent Hd (Fluzone Hd) 01/11/2022 Seasonal Influenza, Quadriva lent, No Preserve, IM 01/12/2016 TDAP, Age 7 and older, IM (Adacel) 08/25/2010 Varicella Zoster Vaccine (Adult) 11/30/2011 Zoster [...] money to get more. Never true 05/14/2023 Childcare Answer Date Recorded Do you feel overwhelmed with taking care of a child, family member or friend? No 05/14/2023 Does your family need help f inding childcare? (Household - for ages 0-17 years) Not on file 05/14/2023 Clothing Answer Date Recorded Have you been unable to get clothing when it was really needed? No 05/14/2023 Is your family able to get c lothes or diapers when needed? (Household - for ages 0-17 years) Not on file 05/14/2023 Personal Safety Answer Date Recorded Do you feel unsafe or have concerns for your saf ety? No 05/14/2023 Do you have concerns for you r family's safety? (Household - for ages 0-17 years) Not on file 05/14/2023 Utilities Answer Date Recorded Do you have trouble paying y our heating, water, or electric bill? No 05/14/2023 Is your family able to pay t he heat, water, or electric bill? (Household - for ages 0-17 years) Not on file 05/14/2023 Does your family have access to good internet? (Household - for ages 0-17 years) Not on file 05/14/2023 Employment Status Answer Date Recorded Are you unemployed or without regular income? No 05/14/2023 Does the household have a [facility] source [facility] income? (Household - for ages 0-17 years) Not on file 05/14/2023 Social Connections Answer Date Recorded How often do you feel lonely or isolated from th ose around you? Never 05/14/2023 Financial Resource Strain Answer Date R ecorded Do you have any trouble payi ng for your medications, or do you think you might in the future? No 05/14/2023 Does your family have troubl e paying for medicine? (Household - for ages 0-17 years) Not on file 05/14/2023 Transportation Needs Answer Date Record ed READ ONLY Do you have troubl e getting a ride to medical visits or work? Never True 05/14/2023 Does your family have a hard time getting a ride to doctors visits? (Household - for ages 0-17 years) Not on file 05/14/2023 Has lack of transportation k ept you from medical appointments, meetings, work, or from getting things needed for daily living? Check all that apply. (Adult - for ages 18 years and over) Not on file 05/14/2023 Do you (or your family) have trouble finding or paying for a ride (transportation)? (Household - for ages 0-17 years) Not on file 05/14/2023 Housing Stability Answer Date Recorded Do you currently live in a s helter or have no steady place to sleep at night? No 05/14/2023 READ ONLY Do you think you a re at risk of becoming homeless? No 05/14/2023 Does your family worry about paying for your home or becoming homeless? (Household - for ages 0-17 years) Not on file 0 05/14/2023 Are you homeless or worried that you might be in the future? (Adult - for ages 18 years and over) Not on file Are you (or your family) alka eless or worried that you might be in the future? (Household - for ages 0-17 years) Not on file Food Insecurity Answer Date Recorded Do you need food for this week? No 05/14/2023 Are you able to get enough f ood for your family? (Household - for ages 0-17 years) Not on file 05/14/2023 Does your family need food t his week? (Household - for ages 0-17 years) Not on file 05/14/2023 Do you always have enough fo od for your family? 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 Defer to 03/18/2024 to order med Estimated Delivery Date: [facility] - order eligard on 03/18/2024. Thank you, Aniyah Diego Medication Department Operations Manager [facility] [email or web address] 2:19 PM * Jordan Andrade OSA - 12/14/2023 8:54 AM EDT POM Reason: Insurance mandated Insurance Info: Aetna Medicare Advantage Auth Expirin06/05/2025 Pharmacy/Company: [facility] Phone number: IM locate technician [place] Location: [facility] Estimated Delivery Date: [facility] - delivers 12/27/2023 - eligard Appointment Date: 12/31/2023 Ordered Date: 12/14/2023 Delivery Address: [facility] Attn: 6th floor IIP POM [address] [facility] [place] [address] RX: Eligard Dose: 22.5mg 3 mo Quantity: 1 Manufactured Supplied: No Refills remaining: Injection Number for this order: Paid Claim at time of order: Valid Prior Auth on File at Ordering Pharmacy: Commercial Insurance: Co pay card on file: Medicare Insurance: Co pay assistance: Last Treatment Date: Next Refill: 03/18/2024 Upcoming Appt: 04/01/2024 Prescribing Physician: Stan Parra [place] Schedule: Q3 months x 4 DX: C61 Prostate Cancer * Jordan Andrade OSA - 09/21/2023 2:42 PM EDT Krysta Lr nursing service director 09/21/2023 14:29 Medication received 09/21/23 Estimated Delivery Date: [facility] - order med 12/15/2023 * Jordan Andrade OSA - 09/14/2023 7:42 AM EDT POM Reason: Insurance mandated Insurance Info: Aetna Medicare Advantage Auth Expirin06/05/2025 Pharmacy/Company: [facility] Phone number: IM locate technician [place] Location: [facility] Estimated Delivery Date: [facility] - 09/21/2023 Appointment Date: 09/28/2023 Ordered Date: 09/14/2023 Delivery Address: Attn: 6th floor IIP [facility] [address] [place] [address] RX: Eligard Dose: 22.5mg 3 mo Quantity: 1 Manufactured Supplied: No Refills remaining: Injection Number for this order: Paid Claim at time of order: Valid Prior Auth on File at Ordering Pharmacy: Commercial Insurance: Co pay card on file: Medicare Insurance: Co pay assistance: Last Treatment Date: 03/22/2023 Next Refill: 12/15/1023 Upcoming Appt: 12/29/2023 Prescribing Physician: Stan Parra [place] Schedule: Q3 months x 4 DX: C61 Prostate Cancer * Jordan Andrade OSA - 06/14/2023 3:07 PM EDT Krysta Lr nursing service director 06/14/2023 12:40 Received 1 Eligard 22.5 Kit 06/14/23 Estimated Delivery Date: [facility] - order med 09/14/2023 * Jordan Andrade OSA - 06/05/2023 9:19 AM EDT POM Reason: Insurance mandated Insurance Info: Aetna Medicare Advantage Auth Expirin06/05/2025 Pharmacy/Company: [facility] Phone number: MARS locate technician [place] Location: [facility] Estimated Delivery Date: [facility] - 06/14/2023 Appointment Date: 06/22/2023 Ordered Date: 06/05/2023 Delivery Address: Attn: 6th floor IIP POM [address] [facility] [place] [address] RX: Eligard Dose: 22.5mg 3 mo Quantity: 1 Manufactured Supplied: No Refills remaining: Injection Number for this order: Paid Claim at time of order: Valid Prior Auth on File at Ordering Pharmacy: Commercial Insurance: Co pay card on file: Medicare Insurance: Co pay assistance: Last Treatment Date: 03/22/2023 Next Refill: 09/07/2023 Upcoming Appt: 09/21/2023 Prescribing Physician: Stan Parra [place] Schedule: Q3 months x 4 DX: C61 Prostate Cancer * Mary Jo Gar nursing service director - 03/21/2023 3:56 PM EST 03/21/2023 - Received medication. Defer to 05/16/2023 to order refill. Estimated Delivery Date: received 03/21/2023 - [facility] Appointment Date: 03/16/2023 Ordered Date: 03/02/2023 Delivery Address: Attn: 6th floor IIP [address] [facility] [place] [address] RX: Eligard Dose: 22.5mg 3 mo Quantity: 1 Manufactured Supplied: No Refills remaining: Injection Number for this order: Next Refill: 05/16/2023 Upcoming Appt: 05/30/2023 * Jordan Andrade OSA - 03/14/2023 2:29 PM EST 03/15/2023 - "Caterina, our buying team said they are waiting to hear from a international sales representative from [facility] regarding the ordering issue but we [...] Mcwilliams 03/14/2023 - Per Vida Kelly at [facility] "Piyush Rubiashwini Eligard did not come in today [facility] Vida Mcwilliams is working with the buying [...] Info: Aetna Medicare Advantage Auth Expirin06/05/2025 Pharmacy/Company: [facility] Phone number: IM locate technician [place] Location: [facility] Estimated Delivery Date: 03/21/2023 - [facility] Appointment Date: 03/16/2023 Ordered Date: 03/02/2023 Delivery Address: Attn: 6th floor IIP [address] [place] [address] RX: Eligard Dose: 22.5mg 3 mo Quantity: [...] defer to 03/02/2023 to order Eligard from [facility]) * Galina Barnett OSA - 12/06/2022 2:21 PM EDT Krysta Lr nursing service director 12/06/2022 13:58 | Received 1 kit of Eligard 12/06/2022 Estimated Delivery Date: Received 12/06/2022-[facility] ABEL Donald [facility] 12/06/2022, 2:21 PM * Mary Jo Gar nursing service director - 11/27/2022 9:02 AM EDT 11/27/2022 - IM'd P to fill. Medication ordered. Defer to 12/06/2022 for delivery. POM Reason: Insurance mandated Insurance Info: Aetna Medicare Advantage Auth Expirin06/05/2025 Pharmacy/Company: [facility] Phone number: IM locate technician [place] Location: [facility] Estimated Delivery Date: 12/06/2022 - [facility] Appointment Date: 12/11/2022 Ordered Date: 11/27/2022 Delivery Address: Attn: 6th floor IIP [address] [place] [address] RX: Eligard Dose: 22.5mg 3 mo Quantity: [...] months x 4 DX: C61 Prostate Cancer Mary Jo Gar [facility] 11/27/2022, 1:19 PM * Mary Jo Gar, nursing service director - 11/20/2022 12:01 PM EDT 11/20/2022 - Defer to 01/27/2023 to order refill. ABEL Cerrato [facility] 11/20/2022, 12:02 PM * Mary Jo Gar, nursing service director - 08/31/2022 10:15 AM EDT 09/08/2022 - Received medication per pharmacy staff. Defer 11/20/2022 for refill. 08/31/2022 - IM'd [facility] for refill. Defer to 09/07/2022 for delivery. POM Reason: Insurance mandated Insurance Info: Aetna Medicare Advantage Auth Expirin06/05/2025 Pharmacy/Company: [facility] Phone number: IM locate technician [place] Location:[facility] Estimated Delivery Date: received 09/07/2022 - [facility] Appointment Date: 09/11/2022 Ordered Date:08/31/2022 Delivery Address:Attn: 6th floor IIP [address] [place] [address] RX:Eligard Dose:22.5mg 3 mo Quantity:1 Manufactured Supplied:No [...] 4 DX:C61 Prostate Cancer ABEL Cerrato [facility] 08/31/2022, 10:18 AM * Liza Hoff OSA - 06/15/2022 2:56 PM EDT Estimated Delivery Date: Received 06/15/2022 - [facility] * Mary Jo Gar nursing service director - 06/14/2022 11:44 AM EDT 06/14/2022 - IM'd [facility] to fill script. Defer to 06/15/2022 for delivery. POM Reason: Insurance mandated Insurance Info: Aetna Medicare Advantage Auth Expirin06/05/2025 Pharmacy/Company: [facility] Phone number: IM locate technician [place] Location: [facility] Estimated Delivery Date: 06/15/2022 - [facility] Appointment Date: 06/16/2022 Ordered Date:06/14/2022 Delivery Address: Attn: 6th floor IIP [address] [place] [address] RX: Eligard Dose: 22.5mg 3 mo Quantity: [...] DX: C61 Prostate Cancer ABEL Cerrato [facility] 06/14/2022, 11:50 AM * Galina Barnett OSA - 06/07/2022 9:47 AM EDT 06/07/2022- Reached out to Alba Iqbal for test claim POM Reason: Insurance Info: Auth Expiring: Pharmacy/Company: Phone number: [place] Location: [facility] Estimated Delivery Date: TBD Appointment Date: Ordered Date: Delivery Address: Attn: 6th floor IIP [address] [facility] [place] [address] RX: Eligard Dose: 22.5mg 3 mo Quantity: [...] Prostate Cancer ABEL Donald [facility] 06/07/2022, 10:14 AM documented in this encounter Plan of Treatment Upcoming Encounters Date Type Department Care Team (Late st Contact Info) Description 01/31/2024 6:30 AM EST Imaging Radiology [address], [address] [place] [address] 02/01/2024 9:30 AM EST Pharmacy Pharmacy Hematology Oncology [place] [address] [place] [address] [facility] [place] [facility] [place] [address] 03/28/2024 1:00 PM EST Laboratory Laboratory, [address] [id number] [facility], Lab [address] [place] [address] 03/28/2024 2:00 PM EST Telemedicine Hematology/Oncology, [address] [address] Stan Parra MD [address] [place] [address] Cart, Telemed [facility] Hem Onc Clinic [address] [place] [address] 03/28/2024 2:30 PM EST Immunization/Injection Hematology/Oncology Treatment, [address] [place] [address] [facility], Chair7 Hem Onc [address] [place] [address] 06/04/2024 8:00 AM EDT Office Visit Family Practice [facility] [address] [facility] [place] [address] Kaz Rivas III, MD [address] [facility] [place] [address] 07/15/2024 10:15 AM EDT Office Visit Urology [facility] [place] [address] [place] [address] Bradley Uriarte Jr., MD [address] [place] [address] 11/13/2024 1:00 PM EDT Office Visit Radiation Oncology, [facility] [address] [place] [address] IovoliDragan MD [address] [place] [address] Scheduled Procedures Name Priority Associated Diagnoses Date/Ti me COLONOSCOPY FLEXIBLE PROXIMA L DIAGNOSTIC Recall History of colonic polyps Health Maintenance Due Date Last Done Comments Cologuard 07/20/1995 Sigmoidoscopy 07/20/1995 Fecal Occult Blood Test 06/15/2002 06/15/2001 Adult Wellness Visit 2016 Depression Screening 01/04/2020 01/03/2019 DTap/Tdap Vaccines (2 - Td or Tdap) 08/25/2020 08/25/2010 COVID-19 Vaccine ( season) 2023 04/06/2021, 04/06/2021, 05/21/2020, Additional history exists Albumin/Creatinine Ratio 10/05/2024 10/05/2021 GFR 01/15/2025 01/16/2024, 12/11, 12/04/2023, Additional history exists Colonoscopy 08/17/2026 08/17/2021, 10/2021, 03/09/2016, Additional history exists Colorectal Cancer Screening 08/17/2026 Lipid Panel 06/21/2028 06/22/2023, 04/2022, 04/14/2022, Additional history exists Pneumococcal Vaccine: 65+ Years Completed 01/02/2018, 01/12/2016 Zoster Vaccines Completed 12/29/2019, 10/10, 11/30/2011 RETIRED - COLONOSCOPY-EVERY 5 YRS AGES 18-100 Discontinued 08/17/2021, 08/17/2021, 03/09/2016, Additional history exists Influenza Vaccine (FLU shot) Completed 12/03/2023, 01/11/2022, 12/18/2019, Additional history exists HPV (Gardasil) Vaccine Aged Out No lo nger eligible based on patient's age to complete this topic Hepatitis B Vaccine Aged Out No longe r eligible based on patient's age to complete this topic MENINGOCOCCAL (MENACTRA/MENVEO) Aged Out No longer eligible based on patient's age to complete this topic documented as of this encounter Medical Devices Not on filedocumented as of this encounter Additional Health Concerns Infection Onset Date Last Indicated Resolved Time Respiratory Rule-Out 05/15/2023 05/15/2023 024 12:08 AM EST Influenza (seasonal) 05/15/2023 05/15/2023 024 12:19 AM EDT documented as of this encounter Advance Directives * Full Code (Latest Code Status on File) Date Activated Date Inactivated Comments 04/30/2018 12:33 PM 04/30/2018 5:23 PM This order reflects the patients wishes and were consensually agreed upon. Question Answer Comments Discussion of Advance Directives occurred with: Patient Does the patient have a Living Will? Yes, not cu rrently available Does the patient have Health Care Power of Warehouse Packaging Supervisor? Yes, not currently available Care Teams Ux Design Manager Relationship Specialty Start Date End Date Kaz Rivas III, MD [address] [place] [address] PCP - General 10/25/1995 documented as of this encounter
--- OUTSIDE RECORDS SUMMARY | 2024-01-26 10:39 | External Medical Summary | Summary of Care ---
Author Name Unknown Organization [facility] Address [address] [place] [address] Phone [phone] Care Team Providers Care Metropolitan Editor Name Role Phone Evelyn FRANZ MD, Kaz Canela Primary Care Provider [phone] Reason for Referral * Precert (Within 24 hrs (call dept; emergent)) - Pending Review Specialty Diagnoses / Procedures Referred By Aj pendleton Referred To Contact Radiology Diagnoses Acute right ankle pain Procedures MRI ANKLE RIGHT WO CONTRAST Parvin Quinonez PA-C [address] [place] [address] Phone: tel: fax: Referral ID Status Reason Start Date Expiration Date V isits Requested Visits Authorized [id number] Pending Review 01/21/2024 999 [id number] Reason for Visit * Reason Comments NEW PATIENT Rt ankle * Evaluate & Treat - Unlimited Visits (Within 3 days (urgent)) - Authorized Specialty Diagnoses / Procedures Referred By Aj pendleton Referred To Contact Orthopaedic Surgery / Orthopedics Diagnoses Closed fracture of distal end of right fibula, unspecified fracture morphology, initial encounter Jerald Aaron PA-C [address] [address] Phone: tel: fax: Referral ID Status Reason Start Date Expiration Date Visits Requested Visits Authorized [id number] Authorized Specialty Services Required 01/16/2024 [id number] Encounter Details Date Type Department Care Team (Late st Contact Info) Description 01/21/2024 9:30 AM EST Office Visit Orthopaedics, [facility] [address] [place] [address] Parvin Quinonez PA-C [address] [place] [address] Acute right ankle pain* Allergies Active Allergy Reactions Criticality Noted Date Comments Levofloxacin Muscle pain 02/07/2018 Oxycodone Nausea/vomiting 02/07/2018 documented as of this encounter (statuses as of 01/21/2024) Medications Multiple Vitamins-Mineral s (CENTRUM SILVER 50+MEN) TABS Take by mouth. Activ e Acetaminophen ER 650 MG Oral Tablet Extended Release Take 1 Tablet by mouth every 8 hours as needed for Pain, Severe. 30 Tablet 2 Active Ondansetron HCl 8 MG Oral TabletIndication s:Metastatic malignant neoplasm to prostate (HCC),Nausea Take 1 Tablet by mouth every 8 hours as needed for Nausea. 50 Tablet 3 Active Additional Information Patient not taking.Reported on 01/21/2024 Calcium 600+D Plus Minerals 600-400 MG-UNIT Oral Tablet ChewableIndicati ons:Malignant neoplasm of prostate (HCC) Take 2 Tablets by mouth in the morning. 60 Tablet 2 3 Active Tamsulosin HCl 0.4 MG Oral Capsule (Flomax)Indicati ons:in evening Take 1 Capsule by mouth in the morning. 90 Capsule 3 4 Active Additional Information Patient taking differently:0.4 mg OralHS, Indications: in evening, Reported on 06/12/2023 Omeprazole 40 MG Oral Capsule Delayed Release (PriLOSEC)Indica tions:Gastroesop hageal reflux disease with esophagitis without hemorrhage,Gastr itis without bleeding, unspecified chronicity, unspecified gastritis type TAKE 1 CAPSULE DAILY 1 HOURBEFORE THE FIRST MEAL OF THE DAY and 1 hour before dinner 180 Capsule 2 4 Active Rosuvastatin Calcium 5 MG Oral Tablet (Crestor) Take 1 Tablet by mouth in the morning. 90 Tablet 3 05/24/202 4 Active Sucralfate 1 GM Oral Tablet (Carafate)Indica tions:Gastritis TAKE 1 TABLET 1 HOUR BEFOREMEALS AND AT BEDTIME, DISSOLVE IN WATER 120 Tablet 5 4 Active Apixaban 5 MG Oral Tablet (Eliquis) TAKE 1 TABLET TWICE A DAY 180 Tablet 3 4 Active predniSONE 5 MG Oral Tablet (Deltasone)Indic ations:Malignant neoplasm of prostate (HCC) Take 1 tablet by mouth in the morning. 30 Tablet 5 12/28/2023 3:30 PM EDT 4 Active Abiraterone Acetate 250 MG Oral Tablet (Zytiga)Indicati ons:Malignant neoplasm of prostate (HCC) Take 1 Tablet by mouth in the morning. 30 Tablet 5 12/28/2023 3:30 PM EDT 4 Active Eligard 22.5 MG Subcutaneous Kit (Leuprolide Acetate (3 Month))Indicatio ns:Metastatic malignant neoplasm to prostate (HCC) Inject 22.5 mg under the skin every 3 months for 4 doses. 4 Kit 12/26/2023 9:07 AM EDT 4 09/11/19 25 Active methylPREDNISolo ne 4 MG Oral Tablet Therapy Pack (Medrol Dosepack)Indicat ions:Acute right ankle pain follow package directions 21 Tablet 4 Active documented as of this encounter (statuses as of 01/21/2024) Active Problems Problem Noted Date Diagnosed Date [...] as of this encounter (statuses as of 01/21/2024) Resolved Problems Problem Noted Date Diagnosed Date Resolved Date Supraclavicular lymphadenopathy 02/11/2016 01/02/2018 Screening for prostate cancer 04/15/2003 05/20/2008 Overview (05/20/2008): Resolved per Screening Diagnosis Protocol #6 Acute cholecystitis 11/25/2002 05/07/19 19 Diaphragmatic hernia 019 documented as of this encounter (statuses as of 01/21/2024) Immunizations Name Administration Dates Next Due COVID-19 [...] Tobacco: Never Alcohol Use Standard Drinks/Week Comments Yes 0 (1 standard drink = 0.6 oz pur e alcohol) rARE AUDIT-C Answer Date Recorded Frequency of Alcohol [...] No 05/14/2023 Does the household have a re gular source of income? 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 Started with pain on Sunday01/14/24, but had significant pain Sunday to the point he was unable to bear weight. [facility] They checked him for lyme and gout which both came back normal. There he had xrays done which showed a possible avulsion fracture off the fibula. They placed him into a boot. He continues with constant 6/10 pain, even while in the boot. They have tried ice, heat and OTC pain meds. Nothing seems to help great but he does get more relief with warm epsom salt soaks Duration: 1 week Location:right lateral ankle Modifying factors: increased walking/WB Severity: moderate Quality: - Treatment to date: boot immobilization, ice, heat and OTC meds. with patient today who contributes to history. Review of Systems: negative except per HPI Past Medical History: Diagnosis Date Deviated septum [...] performed by Umair Cook MD at ENDOSCOPY [facility] COLONOSCOPY, DIAGNOSTIC (RECTUM) 08/17/2021 benign polyp, diverticulosis, repeat 5 yrs / COLONOSCOPY FLEXIBLE PROXIMAL DIAGNOSTIC performed by Chavez Abbasi MD at ENDOSCOPY [facility] COLONOSCOPY, GI REFERRAL OP 03/02/2006 hyperplastic polyps--repeat 5 years COLORECTAL CANCER SCREEN;W/FLE 06/05/2001 70 cms wnl DENTAL SURGERY PROCEDURE NEC Dental Surgery Procedure EGD, FLEXIBLE, DIAGNOSTIC 12/22/2011 UPPER GI ENDOSCOPY DIAGNOSTIC performed by Berkley Rosen DO at ENDOSCOPY [facility] bile reflux and inlet patch EGD, FLEXIBLE, DIAGNOSTIC 06/18/2023 biopsies from esophagus show mild inflammation/ESOPHAGOGASTRODUODENOSCOPY (EGD), FLEXIBLE, TRANSORAL, DIAGNOSTIC performed by Ayah Meza MD at ENDOSCOPY [facility] INFORMATION 1982 Herniated disc repair KNEE ARTHROSCOPY/MENISCUS REPAIR Left 2014 KNEE ARTHROSCOPY/SURGERY Left 09/23/2020 shave menniscus chondroplasty REMOVE GALLBLADDER 11/17/2002 Cholecystectomy - open [facility] Dr. Gold REMOVE LUMBAR SPINE LAMINA, 3+ SEGS 1981 Lumbar Disk Excision REMOVE TONSILS & ADENOIDS, UNDER 12 Tonsillectomy/Adenoids,<12 Y/O SHOULDER ARTHROSCOPY/DEBRIDEMENT Left 2017 STRESS TREADMILL 2000 wnl TRANSPERINEAL BX OF PROSTATE, STEREOTACTIC N/A 04/30/2018 TRANSPERINEAL BX OF PROSTATE, STEREOTACTIC performed by Vy Tyler MD at OR [facility] UPPER ENDOSCOPY GI REFERRAL OP 03/02/2006 acid reflux--no Rodas's esophagus or H.Pylori Current Outpatient Medications Medication Sig Dispense Refill Multiple Vitamins-Minerals (CENTRUM SILVER 50+MEN) TABS Take by mouth. Acetaminophen ER 650 MG Oral Tablet Extended Release Take 1 Tablet by mouth every 8 hours as neededfor Pain, Severe. 30 Tablet 0 Ondansetron HCl 8 MG Oral Tablet Take 1 Tablet by mouth every 8 hours as needed for Nausea. (Patient not taking: Reported on 01/21/2024) 50 Tablet 0 Calcium 600+D Plus Minerals 600-400 MG-UNIT Oral Tablet Chewable Take 2 Tablets by mouth in the morning. 60 Tablet 2 Tamsulosin HCl 0.4 MG Oral Capsule (Flomax) Take 1 Capsule by mouth in the morning. (Patient takingdifferently: Take 1 Capsule by mouth at bedtime.) 90 Capsule 3 Omeprazole 40 MG Oral Capsule Delayed Release (PriLOSEC) TAKE 1 CAPSULE DAILY 1 HOURBEFORE THE FIRST MEAL OF THE DAY and 1 hour before dinner 180 Capsule 2 Rosuvastatin Calcium 5 MG Oral Tablet (Crestor) Take 1 Tablet by mouth in the morning. 90 Tablet 3 Sucralfate 1 GM Oral Tablet (Carafate) TAKE 1 TABLET 1 HOUR BEFOREMEALS AND AT BEDTIME, DISSOLVE IN WATER 120 Tablet 5 Apixaban 5 MG Oral Tablet (Eliquis) TAKE 1 TABLET TWICE A DAY 180 Tablet 3 predniSONE 5 MG Oral Tablet (Deltasone) Take 1 tablet by mouth in the morning. 30 Tablet 5 Abiraterone Acetate 250 MG Oral Tablet (Zytiga) Take 1 Tablet by mouth in the morning. 30 Tablet 5 Eligard 22.5 MG Subcutaneous Kit (Leuprolide Acetate (3 Month)) Inject 22.5 mg under the skin every3 months for 4 doses. 4 Kit 0 methylPREDNISolone 4 MG Oral Tablet Therapy Pack (Medrol Dosepack) follow package directions 21 Tablet 0 No current facility-administered medications for this visit. Review of patient's allergies indicates: Allergen Reactions Levaquin [Levofloxacin] Muscle pain Oxycodone Nausea/vomiting Social History Tobacco Use Smoking status: Never Passive exposure: Never Smokeless tobacco: Never Vaping Use Vaping status: Never Used Substance Use Topics Alcohol use: Yes Comment: rARE Drug use: No Physical Exam: There were no vitals taken for this visit. Gen: healthy appearing individual of stated age Neuro: A&Ox3 Psych: normal mood and affect Cardiovascular: pulses regular Pulmonary: no increased work of breathing Musculoskeletal physical exam of the Right lower extremity: Standing Alignment: not evaluated today Skin: intact with increased swelling lateral ankle Tenderness to palpation: some along the peroneals but more along the distal fibula Motion: limited secondary to pain Sensation intact to light touch in sural, saphenous, superficial peroneal, deep peroneal and tibialnerve distributions. Able to perform ankle plantarflexion, dorsiflexion, hindfoot inversion and eversion. Able to flex and extend toes. Posterior tibial and dorsalis pedis pulses palpable Foot warm and well perfused Imaging: (01/21/2024) Radiographs obtained and reviewed by myself. My interpretation is old avulsion fracture. Question stress reaction distal fibula due to what looks like a cortical irregularity. Assessment: 73 year old male with right lateral ankle pain, possible stress reaction/fracture Plan: - The diagnosis and natural history was discussed with the patient. Appropriate imaging was reviewed with the patient. - discussed with patient that the avulsion fracture they saw most likely isn't recent. Reviewed imaging with patient and showed them my area of concern. Given the step off on the distal fibula and acute onset of pain, I'm concerned he;s dealing with a stress reaction/fracture. Because of this I would like patient to undergo an MRI to further evaluate this. - recommend staying in the boot as well as trying to stay off it the best he can to allow it to rest. - use of compression can help with swelling - continue with the epsom salt soaks if these help - due to being from [facility], will contact him after the MRI is complete. - All questions answered - Patient verbalized understanding Parvin Quinonez PA-C 01/21/2024 documented in this encounter Plan of Treatment Upcoming Encounters Date Type Department Care Team (Late st Contact Info) Description 01/31/2024 6:30 AM EST Imaging Radiology [address] [facility] [place] [id number] 02/01/2024 9:30 AM EST Pharmacy Pharmacy Hematology Oncology [facility] [address] [place] [address] [facility] Hem/Onc [address] [place] [address] 03/28/2024 1:00 PM EST Laboratory Laboratory, [address] [phone] [facility], Lab [address] [place] [address] 03/28/2024 2:00 PM EST Telemedicine Hematology/Oncology, [facility] [address] [place] [address] Stan Parra MD [address] [place] [address] Cart, Telemed [facility] Hem Onc Clinic [address] [place] [address] 03/28/2024 2:30 PM EST Immunization/Injection Hematology/Oncology Treatment, [facility] [address] [place] [address] [facility], [facility] Hem Onc [address] [place] [address] 06/04/2024 8:00 AM EDT Office Visit [facility] [address] [place] [address] Kaz Rivas III, MD 200 [place] [address] 07/15/2024 10:15 AM EDT Office Visit Urology [facility] [address] [address] Bradley Uriarte Jr., MD [address] [place] [address] 11/13/2024 1:00 PM EDT Office Visit Radiation Oncology, [facility] [address] [place] [address] Dragan Mayfield MD [address] [place] [address] Scheduled Orders Name Type Priority Associated Diagnoses Orde r Schedule MRI ANKLE RIGHT WO CONTRAST Medical Imaging STAT Acute right ankle pain Expected: 01/21/2024, Expires: 02/19/2025 25-HYDROXY VITAMIN D Lab Routine Acute right ankle pain Expected: 01/21/2024, Expires: 01/20/2025 Scheduled Procedures Name Priority Associated Diagnoses Date/Ti [...] as of this encounter Visit Diagnoses Diagnosis Acute right ankle pain- Primary documented in this encounter Advance Directives * Full Code [...] the patient have Health Care Power of Underwriting Account Representative? Yes, not currently available Care Teams Metropolitan Editor Relationship Specialty Start Date End Date Kaz Rivas III, MD [address] [place] [address] PCP - General 10/25/1995 documented as of this encounter
--- OUTSIDE RECORDS SUMMARY | 2024-01-26 10:39 | External Medical Summary | Summary of Care ---
Author Name Unknown Organization [facility] Address [address] [place] [address] Phone [phone] Care Team Providers Care Kettle Cleaner Name Role Phone Evelyn FRANZ MD, Kaz Canela Primary Care Provider [phone] Encounter Details Date Type Department Care Team (Late st Contact Info) Description 01/24/2024 Orders Only PATIENT PORTAL DO NOT DELETE THIS DEPT USED BY [address] KIMBROUGH [id number] Allergies Active Allergy Reactions Criticality Noted Date Comments Levofloxacin Muscle pain 02/07/2018 Oxycodone Nausea/vomiting 02/07/2018 documented as of this encounter (statuses as of 01/24/2024) Medications Multiple Vitamins-Mineral s (CENTRUM SILVER 50+MEN) [...] mouth in the morning. 90 Tablet 3 4 Active Sucralfate 1 GM Oral Tablet [...] as of this encounter (statuses as of 01/24/2024) Active Problems Problem Noted Date Diagnosed Date [...] as of this encounter (statuses as of 01/24/2024) Resolved Problems Problem Noted Date Diagnosed Date Resolved Date Supraclavicular lymphadenopathy 02/11/2016 01/02/2018 Screening for prostate cancer 04/15/2003 05/20/2008 Overview (05/20/2008): Resolved per Screening Diagnosis Protocol #6 Acute cholecystitis 11/25/2002 05/07/19 19 Diaphragmatic hernia 019 documented as of this encounter (statuses as of 01/24/2024) Immunizations Name Administration Dates Next Due COVID-19 [...] No 05/14/2023 Does the household have a [facility] source of income? 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 [address] [facility] [place] [address] [facility], [facility] Hem[facility]Onc [address] [facility] [place] [address] 03/28/2024 1:00 PM EST Laboratory Laboratory, [address] [place] [phone] [facility], Lab [address] [place] [address] 03/28/2024 2:00 PM EST Telemedicine Hematology/Oncology, [facility] [address] [place] [address] Stan Parra MD [address] [place] [address] Cart, Telemed [facility] Hem Onc Clinic [address] [place] [address] 03/28/2024 2:30 PM EST Immunization/Injection Hematology/Oncology Treatment, [facility] [address] [place] [address] [facility], [facility] Hem Onc [address] [place] [address] 06/04/2024 8:00 AM EDT Office Visit [facility] [address] [place] [address] Kaz Rivas III, MD [address] [place] [address] 07/15/2024 10:15 AM EDT Office Visit Urology [facility] [place] [address] [place] [address] [place] [address] Bradley Uriarte Jr., MD [address] [facility] [place] [address] 11/13/2024 1:00 PM EDT Office Visit Radiation Oncology, [facility] [address] [place] [address] IovoliDragan MD [address] [place] [id number] Scheduled Procedures Name Priority Associated Diagnoses Date/Ti me COLONOSCOPY FLEXIBLE PROXIMA L DIAGNOSTIC Recall History of colonic polyps Health Maintenance Due Date Last Done Comments Cologuard 07/20/1995 Sigmoidoscopy 07/20/1995 Fecal Occult Blood Test 06/15/2002 06/15/2001 Adult Wellness Visit 2016 Depression Screening 01/04/2020 01/03/2019 DTap/Tdap Vaccines (2 - Td or Tdap) 08/25/2020 08/25/2010 COVID-19 Vaccine (4 - season) 2023 04/06/2021, 04/06/2021, 05/21/2020, Additional history [...] filedocumented as of this encounter Advance Directives * [...] the patient have Health Care Power of Financial Institution Treasurer? Yes, not currently available Care Teams Kettle Cleaner Relationship Specialty Start Date End Date Kaz Rivas III, MD [address] [facility] [place] [address] PCP - General 10/25/1995 documented as of this encounter
--- OUTSIDE RECORDS SUMMARY | 2024-01-26 10:40 | External Medical Summary | Summary of Care ---
Author Name Unknown Organization [facility] Address [address] [place] [address] Phone [phone] Care Team Providers Care Wax Room Supervisor Name Role Phone Evelyn FRANZ MD, Kaz Canela Primary Care Provider [phone] Reason for Referral * Evaluate & Treat - Unlimited Visits (Within 3 days (urgent)) - Authorized Specialty Diagnoses / Procedures Referred By Aj pendleton Referred To Contact Orthopaedic Surgery / Orthopedics Diagnoses Closed fracture of distal end of right fibula, unspecified fracture morphology, initial encounter Jerald Aaron PA-C [address] [id number] Referral ID Status Reason Start Date Expiration Date Visits Requested Visits Authorized [id number] Authorized Specialty Services Required 01/16/2024 999 999 Question Answer Referral Priority Within 3 days (urgent) [facility] this appointment be scheduled? [facility] What body part is the patient being seen for? Foot/Ankle/Calf What condition is the patient being seen for? Fracture including related infection Reason for Visit * Reason Onset Date Comments Test Results Imaging Study 01/16/2024 Encounter Details Date Type Department Care Team ([facility] st Contact Info) Description [facility] [address] [place] [address] Jerald Aaron PA-C [address] [employer] [address] [employer] [place] [id number] Test Results Imaging Study Allergies Active Allergy Reactions Criticality Noted Date Comments Levofloxacin Muscle pain 02/07/2018 Oxycodone Nausea/vomiting 02/07/2018 documented as of this encounter (statuses as of 01/17/2024) Medications Medication Sig Dispensed Refills Start Date End Date Status Multiple Vitamins-Minerals (CENTRUM SILVER 50+MEN) TABS Take by mouth. Active Acetaminophen ER 650 MG Oral Tablet Extended Release Take 1 Tablet by mouth every 8 hours as needed for Pain, Severe. 30 Tablet 04/06/2021 Active Ondansetron HCl 8 MG Oral TabletIndications: Metastatic malignant neoplasm to prostate (HCC),Nausea Take 1 Tablet by mouth every 8 hours as needed for Nausea. 50 Tablet 06/16/2022 Active Calcium 600+D Plus Minerals 600-400 MG-UNIT Oral Tablet ChewableIndication s:Malignant neoplasm of prostate (HCC) Take 2 Tablets by mouth in the morning. 60 Tablet 2 11/22/2022 Active Tamsulosin HCl 0.4 MG Oral Capsule (Flomax)Indication s:in evening Take 1 Capsule by mouth in the morning. 90 Capsule 3 05/02/2023 Active Additional Information Patient taking differently:0.4 mg OralHS, Indications: in evening, Reported on 06/12/2023 Omeprazole 40 MG Oral Capsule Delayed Release (PriLOSEC)Indicati ons:Gastroesophage al reflux disease with esophagitis without hemorrhage,Gastrit is without bleeding, unspecified chronicity, unspecified gastritis type TAKE 1 CAPSULE DAILY 1 HOURBEFORE THE FIRST MEAL OF THE DAY and 1 hour before dinner 180 Capsule 2 05/31/2023 Active Rosuvastatin Calcium 5 MG Oral Tablet (Crestor) Take 1 Tablet by mouth in the morning. 90 Tablet 3 08/03/2023 Active Sucralfate 1 GM Oral Tablet (Carafate)Indicati ons:Gastritis TAKE 1 TABLET 1 HOUR BEFOREMEALS AND AT BEDTIME, DISSOLVE IN WATER 120 Tablet 5 10/19/2023 Active Apixaban 5 MG Oral Tablet (Eliquis) TAKE 1 TABLET TWICE A DAY 180 Tablet 3 11/13/2023 Active predniSONE 5 MG Oral Tablet (Deltasone)Indicat ions:Malignant neoplasm of prostate (HCC) Take 1 tablet by mouth in the morning. 30 Tablet 5 11/30/2023 Active Abiraterone Acetate 250 MG Oral Tablet (Zytiga)Indication s:Malignant neoplasm of prostate (HCC) Take 1 Tablet by mouth in the morning. 30 Tablet 5 11/30/2023 Active Eligard 22.5 MG Subcutaneous Kit (Leuprolide Acetate (3 Month))Indications :Metastatic malignant neoplasm to prostate (HCC) Inject 22.5 mg under the skin every 3 months for 4 doses. 4 Kit 12/14/2023 09/10/2024 Active methylPREDNISolone 4 MG Oral Tablet Therapy Pack (Medrol Dosepack)Indicatio ns:Acute right ankle pain follow package directions 21 Tablet 01/16/2024 Active documented as of this encounter (statuses as of 01/17/2024) Active Problems Problem Noted Date Diagnosed Date [...] as of this encounter (statuses as of 01/17/2024) Resolved Problems Problem Noted Date Diagnosed Date Resolved Date Supraclavicular lymphadenopathy 02/11/2016 01/02/2018 Screening for prostate cancer 04/15/2003 05/20/2008 Overview: Resolved per Screening Diagnosis Protocol #6 Acute cholecystitis 11/25/2002 05/07/19 19 Diaphragmatic hernia 019 documented as of this encounter (statuses as of 01/17/2024) Immunizations Name Administration Dates Next Due COVID-19 [...] Frequency of Binge Drinking Not on file 0406/2018 PHQ-2 Answer Date Recorded PHQ-2 Score 0 [...] encounter Miscellaneous Notes * Telephone Encounter - Aster Elise, MED ASSIST - 01/17/2024 9:08 AM EST Pt returned call, identified - , Name and phone. He understands and will come in this AM to be fitted for the boot. He has no further questions at this time Aster Elise, MED ASSIST * Telephone Encounter - Teodora Rainey LPN - 01/16/2024 6:42 PM EST Left generic message on answering machine asking pt to return our call. Messages left on both contact numbers. * Telephone Encounter - Teodora Rainey LPN - 01/16/2024 5:55 PM EST Left generic message on answering machine asking pt to return our call. * Telephone Encounter - Jerald Aaron PA-C - 01/16/2024 5:31 PM EST Please let patient know he has a small avulsion fracture at R distal fibula. Recommend he come in for a walking boot Can follow-up with orthopedics (referral placed). documented in this encounter Plan of Treatment Upcoming Encounters Date Type Department Care Team (Late st Contact Info) Description 02/01/2024 9:30 AM EST Pharmacy Pharmacy Hematology Oncology [address] [address] [facility], [facility] Hem/Onc [address] [place] [address] 03/28/2024 1:00 PM EST Laboratory Laboratory, [address] [address] [facility], Lab [address] [place] [address] 03/28/2024 2:00 PM EST Telemedicine Hematology/Oncology, [address] [address] Stan Parra MD [address] [place] [address] Cart, Telemed [facility] Hem Onc Clinic [address] [place] [address] 03/28/2024 2:30 PM EST Immunization/Injection Hematology/Oncology Treatment, [address] [address] [facility], Chair Hem Onc [address] [place] [address] 06/04/2024 8:00 AM EDT Office Visit [facility] [address] [place] [address] Kaz Rivas III, MD [address] [place] [address] 07/15/2024 10:15 AM EDT Office Visit Urology [facility] [address] [address] [place] [address] Bradley Uriarte Jr., MD 27 [place] [address] 11/13/2024 1:00 PM EDT Office Visit Radiation Oncology, [facility] [address] [place], [place] [address] IovoliDragan MD [address] [place] [phone] Scheduled Orders Name Type Priority Associated Diagnoses Orde r Schedule WALKING BOOT, PNEUMATIC/VACCUM, CUSTOM Procedures Routine Closed fracture of distal end of right fibula, unspecified fracture morphology, initial encounter Ordered: 01/16/2024 Scheduled Procedures Name Priority Associated Diagnoses Date/Ti me COLONOSCOPY FLEXIBLE PROXIMA L DIAGNOSTIC Recall History of colonic polyps Scheduled Referrals Name Type Priority Associated Diagnoses Orde r Schedule ORTHOPAEDICS REFERRAL OP Referral Within 3 days (urgent) Closed fracture of distal end of right fibula, unspecified fracture morphology, initial encounter Ordered: 01/16/2024 Health Maintenance Due Date Last Done Comments [...] as of this encounter Visit Diagnoses Diagnosis Closed fracture of distal end of right fibula, unspecified fracture morphology, initial encounter- Primary documented in this encounter Advance Directives [...] the patient have Health Care Power of Knowledge Analyst? Yes, not currently available Care Teams Wax Room Supervisor Relationship Specialty Start Date End Date Kaz Rivas III, MD 200 [place] [address] PCP - General 10/25/1995 documented as of this encounter
--- OUTSIDE RECORDS SUMMARY | 2024-01-26 10:40 | External Medical Summary | Summary of Care ---
Author Name Unknown Organization [facility] Address [address] [place] [address] Phone [phone] Care Team Providers Care Cell Lead Name Role Phone Evelyn FRANZ MD, Kaz Canela Primary Care Provider [phone] Reason for Referral * Evaluate & Treat - Unlimited Visits (Within 3 days (urgent)) - Authorized Specialty Diagnoses / Procedures Referred By Aj pendleton Referred To Contact Orthopaedic Surgery / Orthopedics Diagnoses Closed fracture of distal end of right fibula, unspecified fracture morphology, initial encounter Jerald Aaron PA-C [address] [id number] Referral ID Status Reason Start Date Expiration Date Visits Requested Visits Authorized [id number] Authorized Specialty Services Required 01/16/2024 999 999 Question Answer Referral Priority Within 3 days (urgent) Where should this appointment be scheduled? [facility] What body part is the patient being seen for? Foot/Ankle/Calf What condition is the patient being seen for? Fracture including related infection Encounter Details Date Type Department Care Team ([facility] Contact Info) Description 01/16/2024 [place] [address] [place] [address] Jerald Aaron PA-C [address] [id number] Allergies Active Allergy Reactions Criticality Noted Date Comments Levofloxacin Muscle pain 02/07/2018 Oxycodone Nausea/vomiting 02/07/2018 documented as of this encounter (statuses as of 01/16/2024) Medications Medication Sig Dispensed Refills Start Date [...] as of this encounter (statuses as of 01/16/2024) Active Problems Problem Noted Date Diagnosed Date [...] as of this encounter (statuses as of 01/16/2024) Resolved Problems Problem Noted Date Diagnosed Date Resolved Date Supraclavicular lymphadenopathy 02/11/2016 01/02/2018 Screening for prostate cancer 04/15/2003 05/20/2008 Overview: Resolved per Screening Diagnosis Protocol #6 Acute cholecystitis 11/25/2002 05/07/19 19 Diaphragmatic hernia 019 documented as of this encounter (statuses as of 01/16/2024) Immunizations Name Administration Dates Next Due COVID-19 [...] encounter Miscellaneous Notes * Telephone Encounter - Teodora Rainey LPN [...] 9:30 AM EST Pharmacy Pharmacy Hematology Oncology [address] [address] [place] [address] [facility], [facility] Hem/Onc [facility] [place] [address] 03/28/2024 1:00 PM EST Laboratory Laboratory, [address] [phone] [facility], Lab [address] [place] [address] 03/28/2024 2:00 PM EST Telemedicine Hematology/Oncology, [address] [address] Stan Parra MD [address] [place] [address] Cart, Telemed [facility] Hem [facility]c [facility] [address] [place] [address] 03/28/2024 2:30 PM EST Immunization/Injection Hematology/Oncology Treatment, [facility] [address] [facility], Chair[facility] Hem Onc 400 [facility] [address] 06/04/2024 8:00 AM EDT Office Visit [facility] [place] 200 [facility] [place] [address] Kaz Rivas III, MD 200 [facility] [place] [address] 07/15/2024 10:15 AM EDT Office Visit Urology Irene [facility] [place] 27 [facility] [address] [place] [address] Bradley Uriarte Jr., MD [address] [place] [address] 11/13/2024 1:00 PM EDT Office Visit Radiation Oncology, [facility] [address] [place] [address] IovoliDragan MD [address] [place] [phone] Scheduled Orders Name Type Priority Associated Diagnoses [...] the patient have Health Care Power of Radio Board Operator? Yes, not currently available Care Teams Cell Lead Relationship Specialty Start Date End Date Kaz Rivas III, MD 200 [facility] [place] [address] PCP - General 10/25/1995 documented as of this encounter
--- OUTSIDE RECORDS SUMMARY | 2024-01-26 10:40 | External Medical Summary | Summary of Care ---
Author Name Unknown Organization [facility] Address [address] [place] [address] Phone [phone] Care Team Providers Care Senior Accountant Analyst Name Role Phone Evelyn FRANZ MD, Kaz Canela Primary Care Provider [phone] Reason for Referral * Evaluate & Treat - Unlimited Visits (Within 3 days (urgent)) - Authorized Specialty Diagnoses / Procedures Referred By Aj pendleton Referred To Contact Orthopaedic Surgery / Orthopedics Diagnoses Closed fracture of distal end of right fibula, unspecified fracture morphology, initial encounter Jerald Aaron PA-C [address] [id number] Referral ID Status Reason Start Date Expiration Date Visits Requested Visits Authorized [id number] Authorized Specialty Services Required 01/16/[phone] [...] Encounter Details Date Type Department Care Team ([facility] st Contact Info) Description [facility]/16[facility]2024 [facility] [place] [facility] [address] [place] [address] Jerald Aaron PA-C [address] [employer] [id number] Test Results Imaging Study Allergies Active Allergy [...] AM EST Pharmacy Pharmacy Hematology Oncology [address] [address] [facility] [place], [facility] Hem/Onc [address] [place] [address] 03/28/2024 1:00 PM EST Laboratory Laboratory, [address] [address] [facility], Lab [address] [place] [address] 03/28/2024 2:00 PM EST Telemedicine Hematology/Oncology, [address] [address] Stan Parra MD [address] [place] [address] Cart, Telemed [facility] Hem Onc Clinic [address] [place] [address] 03/28/2024 2:30 PM EST Immunization/Injection Hematology/Oncology Treatment, [address] [address] [facility], Chair Hem Onc [address] [place] [address] 06/04/2024 8:00 AM EDT Office Visit [facility] [address] [place] [address] Kaz iRvas III, MD [address] [place] [address] 07/15/2024 10:15 AM EDT Office Visit Urology [facility] [address] [address] [place] [address] Bradley Uriarte Jr., MD 27 [place] [address] 11/13/2024 1:00 PM EDT Office Visit Radiation Oncology, [facility] [address] [place], [place] [phone] IovoliDragan MD [address] [place] [phone] Scheduled Orders Name Type Priority Associated Diagnoses [...] the patient have Health Care Power of Mental Health Therapist? Yes, not currently available Care Teams Senior Accountant Analyst Relationship Specialty Start Date End Date Kaz Rivas III, MD 200 [facility] [place] [address] PCP - General 10/25/1995 documented as of this encounter
--- OUTSIDE RECORDS SUMMARY | 2024-01-26 10:40 | External Medical Summary | Summary of Care ---
Author Name Unknown Organization [facility] Address [address] [place] [address] Phone [phone] Care Team Providers Care Bridge Welder Name Role Phone Evelyn FRANZ MD, Kaz Canela Primary Care Provider [phone] Reason for Visit * Reason Comments Outpatient Testing Encounter Details Date Type Department Care Team (Late st Contact Info) Description 01/16/2024 12:30 PM EST Laboratory Laboratory [facility] [address] [place] [address] [place], Lab Scenery [address] [place] [address] Acute right ankle pain Allergies Active Allergy Reactions Criticality Noted Date [...] as of this encounter Miscellaneous Notes * Result Encounter Note - Jerald Aaron PA-C - 01/17/2024 9:15 AM EST Negative lyme * Result Encounter Note - Jerald Aaron PA-C - 01/16/2024 8:27 PM EST Uric acid negative. Negative WBC count Found to have avulsion fx on Xray documented in this encounter Plan of Treatment Upcoming Encounters Date Type Department Care Team (Late st Contact Info) Description 02/01/2024 9:30 AM EST Pharmacy Pharmacy Hematology Oncology [facility] [address] [place] [address] [facility] Hem/Onc [address] [place] [address] 03/28/2024 1:00 PM EST Laboratory Laboratory, [facility] [address] [place] [phone] [facility], Lab [address] [place] [address] 03/28/2024 2:00 PM EST Telemedicine Hematology/Oncology, [address] [address] Stan Parra MD [address] [place] [address] Cart, Telemed [facility] Hem Onc Clinic [address] [place] [address] 03/28/2024 2:30 PM EST Immunization/Injection Hematology/Oncology Treatment, [address] [address] [facility], Chair7 Hem Onc [address] [place] [address] 06/04/2024 8:00 AM EDT Office Visit [facility] [address] [place] [address] EvelynKaz napier III, MD 200 [place] [address] 07/15/2024 10:15 AM EDT Office Visit Urology Irene [facility] [place] [address] [facility] [address] [address] Bradley Uriarte Jr., MD [address] [address] 11/13/2024 1:00 PM EDT Office Visit Radiation Oncology, [facility] [address] [place] [address] Dragan Mayfield MD [address] [place] [address] Scheduled Procedures Name Priority Associated [...] Procedure Name Priority Date/Time Associated Diagnosis Comments LYME DISEASE ANTIBODY SCREEN Routine 01/16/2024 12:39 PM EST Acute right ankle pain DIFFERENTIAL, AUTOMATED Routine 01/16/2024 12:39 PM EST Acute right ankle pain LYME DISEASE ANTIBODY SCREEN WITH REFLEX TO CONFIRMATION Routine 01/16/2024 12:39 PM EST Acute right ankle pain COMPREHENSIVE METABOLIC PANEL Routine 01/16/2024 12:39 PM EST Acute right ankle pain CBC Routine 01/16/2024 12:39 PM EST Acute right ankle pain CBC Routine 01/16/2024 12:39 PM EST Acute right ankle pain URIC ACID Routine 01/16/2024 12:39 PM EST Acute right ankle pain documented in this encounter Results * (ABNORMAL) DIFFERENTIAL, AUTOMATED (01/16/2024 12:39 PM EST) WBC 5.30 4.00 - 10.80 K/uL 01/16/2024 12:53 PM EST [facility]02 Neutrophils % 83.0(H) 40.0 - 75.0 % 01/16/2024 12:53 PM EST [facility] Lymphocytes % 10.8(L) 18.0 - 42.0 % 01/16/2024 12:53 PM EST [facility]02 Monocytes % 5.8 1.0 - 11.0 % 01/16/2024 12:53 PM EST [facility]-02 Eosinophils % 0.2 0.0 - 6.0 % 01/16/2024 12:53 PM EST [facility]02 Basophils % 0.2 0.0 - 2.0 % 01/16/2024 12:53 PM EST [facility]-02 Absolute Neutrophils 4.40 1.80 - 7.70 K/uL 01/16/2024 12:53 PM EST [facility] 56-02 Absolute Lymphocytes 0.57(L) 1.00 - 4.80 K/ul 01/16/2024 12:53 PM EST [facility] 56- Absolute Monocytes 0.31 0.00 - 1.10 K/uL 01/16/2024 12:53 PM EST [facility] 56- Absolute Eosinophils 0.01 0.00 - 0.70 K/uL 01/16/2024 12:53 PM EST [facility] 56- Absolute Basophils 0.01 0.00 - 0.20 K/uL 01/16/2024 12:53 PM EST [facility] 56- Blood Venous blood specimen / Unknown Venipuncture / Unknown 01/16/2024 12:39 PM EST 01/16/2024 12:39 PM EST Jerald Aaron PA-C LAB BLOOD OR DERABLES [facility] [address] [place], [place] [phone] * (ABNORMAL) CBC (01/16/2024 12:39 PM EST) WBC 5.30 4.00 - 10.80 K/uL 01/16/2024 12:53 PM [facility] 56 RBC 4.39 4.50 - 5.25 M/uL 01/16/2024 12:53 PM [facility] 56 HGB 13.4(L) 14.0 - 16.8 g/dL 01/16/2024 12:53 PM [facility] 56- HCT 40.1 40.0 - 48.4 % 01/16/2024 12:53 PM [facility] 56- MCV 91.3 82.0 - 99.5 fL 01/16/2024 12:53 PM EST [facility] 56- MCH 30.5 27.0 - 34.0 pg 01/16/2024 12:53 PM [facility] 56- MCHC 33.4 32.0 - 36.0 g/dL 01/16/2024 12:53 PM [facility] 56 RDW 13.6 11.5 - 15.5 % 01/16/2024 12:53 PM [facility] 56- PLT 157 140 - 400 K/uL 01/16/2024 12:53 PM EST [facility] 56 MPV 10.2 6.6 - 11.1 fL 01/16/2024 12:53 PM EST [facility] 56 Blood Venous blood specimen / Unknown Venipuncture / Unknown 01/16/2024 12:39 PM EST 01/16/2024 12:39 PM EST Jerald Aaron PA-C LAB BLOOD OR DERABLES [facility] 56 [address] [place] [address] * LYME DISEASE ANTIBODY SCREEN (01/16/2024 12:39 PM EST) [facility] Lyme Disease Antibody Screen Negative Negative 01/17/2024 9:13 AM EST [facility] Blood Venous blood specimen / Unknown Venipuncture / Unknown 01/16/2024 12:39 PM EST 01/16/2024 12:39 PM EST Jerald Aaron PA-C LAB BLOOD OR DERABLES [facility] [address] [place] [address] * (ABNORMAL) COMPREHENSIVE METABOLIC PANEL (01/16/2024 12:39 PM EST) [facility] BUN 13 6 - 20 mg/dL 01/16/2024 1:46 PM EST [address] CREATININE 0.8 0.6 - 1.2 mg/dL 01/16/2024 1:46 PM [facility] 56 EGFR >90 >=60 mL/min 01/16/2024 1:46 PM [facility] 56 Comment:eGFR is calculated b ased on the CKD-EPI 2020 equation. SODIUM 142 135 - 146 mmol/L 01/16/2024 1:46 PM [facility] 56- POTASSIUM 3.9 3.5 - 5.1 mmol/L 01/16/2024 1:46 PM [facility] 56- CHLORIDE 105 98 - 107 mmol/L 01/16/2024 1:46 PM [facility] 56 CO2 25 22 - 32 mmol/L 01/16/2024 1:[address] ANION GAP 12 7 - 15 mmol/L 01/16/2024 1:[address] GLUCOSE 129(H) 70 - 120 mg/dL 01/16/2024 1:[address] Albumin 4.2 3.8 - 5.0 g/dL 01/16/2024 1:[address] AST 21 10 - 50 U/L 01/16/2024 1:[address] Alkaline Phosphatase 81 35 - 130 U/L 01/16/2024 1:[address] Bilirubin, Total 0.6 <=1.2 mg/dL 01/16/2024 1:[address] CALCIUM 9.3 8.4 - 10.2 mg/dL 01/16/2024 1:[address] Protein 6.4 6.0 - 8.3 g/dL 01/16/2024 1:[address] ALT 13 10 - 50 U/L 01/16/2024 1:46 PM [facility] Blood Venous blood specimen / Unknown Venipuncture / Unknown 01/16/2024 12:39 PM EST 01/16/2024 12:39 PM EST Jerald Aaron PA-C LAB BLOOD OR DERABLES [facility] 56- [address] [place] [address] * URIC ACID (01/16/2024 12:39 PM EST) Pathologist [facility] Uric Acid 3.4 3.4 - 7.0 mg/dL 01/16/2024 8:00 PM EST [facility] Blood Venous blood specimen / Unknown Venipuncture / Unknown 01/16/2024 12:39 PM EST 01/16/2024 12:39 PM EST Jerald Aaron PA-C LAB BLOOD OR DERABLES [facility] [address] [place] [address] documented in this encounter Visit Diagnoses Diagnosis Acute right ankle pain documented in this encounter Advance Directives * [...] the patient have Health Care Power of Bench Assembler Operator? Yes, not currently available Care Teams Bridge Welder Relationship Specialty Start Date End Date Kaz Rivas III, MD 200 [facility] [place] [address] PCP - General 10/25/1995 documented as of this encounter
--- OUTSIDE RECORDS SUMMARY | 2024-01-26 10:40 | External Medical Summary | Summary of Care ---
Author Name Unknown Organization [facility] Address [address] [place] [address] Phone [phone] Care Team Providers Care Fruit Harvest Worker Name Role Phone Evelyn FRANZ MD, Kaz Canela Primary Care Provider [phone] Encounter Details Date Type Department Care Team (Late st Contact Info) Description 01/19/2024 Patient Reported Data Patient Survey Ortho OBERD Allergies Active Allergy Reactions Criticality Noted Date Comments Levofloxacin Muscle pain 02/07/2018 Oxycodone Nausea/vomiting 02/07/2018 documented as of this encounter (statuses as of 01/19/2024) Medications Multiple Vitamins-Mineral s (CENTRUM SILVER 50+MEN) [...] needed for Nausea. 50 Tablet 3 Active Calcium 600+D Plus Minerals 600-400 MG-UNIT [...] as of this encounter (statuses as of 01/19/2024) Active Problems Problem Noted Date Diagnosed Date [...] as of this encounter (statuses as of 01/19/2024) Resolved Problems Problem Noted Date Diagnosed Date Resolved Date Supraclavicular lymphadenopathy 02/11/2016 01/02/2018 Screening for prostate cancer 04/15/2003 05/20/2008 Overview (05/20/2008): Resolved per Screening Diagnosis Protocol #6 Acute cholecystitis 11/25/2002 05/07/19 19 Diaphragmatic hernia 019 documented as of this encounter (statuses as of 01/19/2024) Immunizations Name Administration Dates Next Due COVID-19 [...] No 05/14/2023 Does the household have a [facility] source of income? 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 Not on file Not on file documented as of this encounter Plan of Treatment Upcoming Encounters Date Type Department Care Team (Late st Contact Info) Description 01/21/2024 9:30 AM EST Office Visit Orthopaedics, [facility] [address] [place] [address] Parvin Quinonez PA-C [address] [place] [address] 02/01/2024 9:30 AM EST Pharmacy Pharmacy Hematology Oncology [facility], [place] [address] [facility] [place] [address] [facility], [facility] Hem/Onc [address] [facility] [place] [address] 03/28/2024 1:00 PM EST Laboratory Laboratory, [address] [place] [phone] [facility], Lab [address] [place] [address] 03/28/2024 2:00 PM EST Telemedicine Hematology/Oncology, [facility] [address] [place] [address] Stan Parra MD [address] [place] [address] Buffy, Telemed [facility] Hem Onc Clinic [address] [place] [address] 03/28/2024 2:30 PM EST Immunization/Injection Hematology/Oncology Treatment, [facility] [address] [place] [address] [facility], [facility] Hem Onc [address] [place] [address] 06/04/2024 8:00 AM EDT Office Visit [facility] 200 [place] [address] Kaz Rivas III, MD 200 [place] [address] 07/15/2024 10:15 AM EDT Office Visit Urology Irene Rogers [place] [address] [facility] [address] [place] [address] Bradley Uriarte Jr., MD [address] [place] [address] 11/13/2024 1:00 PM EDT Office Visit Radiation Oncology, [facility] [address] [facility] [place] [address] Iovoli, Dragan Gavin MD [address] [place] [phone] Scheduled Procedures Name Priority Associated Diagnoses Date/Ti [...] Cancer Screening 08/17/2026 Lipid Panel 06/21/2028 06/22/2023, 1004/2022, 04/14/2022, Additional history exists Pneumococcal Vaccine: 65+ [...] patient have Health Care Power of Director Veterinary? Yes, not currently available Care Teams Fruit Harvest Worker Relationship Specialty Start Date End Date Kaz Rivas III, MD [address] [place] [address] PCP - General 10/25/1995 documented as of this encounter
--- OUTSIDE RECORDS SUMMARY | 2024-01-26 10:40 | External Medical Summary | Summary of Care ---
Author Name Unknown Organization [facility] Address [address] [place] [address] Phone [phone] Care Team Providers Care Clerical Coordinator Name Role Phone Evelyn FRANZ MD, Kaz Canela Primary Care Provider [phone] Reason for Visit * Reason Comments Outpatient Testing Encounter Details Date Type Department Care Team (Late st Contact Info) Description 01/16/2024 12:30 PM EST Laboratory Laboratory [facility] [address] [place] [address] [place], Lab [address] [place] [address] Acute right ankle pain Allergies Active Allergy [...] 9:30 AM EST Pharmacy Pharmacy Hematology Oncology [facility] [address] [place] [address] [facility], [facility] Clinic Hem/Onc [address] [place] [address] 03/28/2024 1:00 PM EST Laboratory Laboratory, [address] [phone] [facility], Lab [address] [place] [address] 03/28/2024 2:00 PM EST Telemedicine Hematology/Oncology, [address] [address] Stan Parra MD [address] [place] [address] Cart, Telemed [facility] Hem Onc Clinic 400 [facility] [place] [address] 03/28/2024 2:30 PM EST Immunization/Injection Hematology/Oncology Treatment, [facility] 400 [facility] [place] [address] [facility], Chair [facility] Onc [facility] [address] 06/04/2024 8:00 AM EDT Office Visit Family Practice [facility] [place] 200 [place] [address] Kaz Rivas III, MD 200 [facility] [address] 07/15/2024 10:15 AM EDT Office Visit Urology Irene Rogers [place] [address] [place] [address] Bradley Uriarte Jr., MD [address] [place] [address] 11/13/2024 1:00 PM EDT Office Visit Radiation Oncology, [facility] [address] [place] [address] IovolDragan rawls MD [address] [place] [phone] Pending Results Name Type Priority Associated Diagnoses Date /Time URIC ACID Lab Routine Acute right ankle pain 01/16/2024 12:39 PM EST LYME DISEASE ANTIBODY SCREEN WITH REFLEX TO CONFIRMATION Lab Routine Acute right ankle pain 01/16/2024 12:39 PM EST COMPREHENSIVE METABOLIC PANEL Lab Routine Acute right ankle pain 01/16/2024 12:39 PM EST LYME DISEASE ANTIBODY SCREEN Lab Routine Acute right ankle pain 01/16/2024 12:39 PM EST Scheduled Procedures Name Priority Associated [...] history exists Albumin/Creatinine Ratio 10/05/2024 10/05/2021 GFR 12/30/2024 12/31/2023, 11/11, 10/25/2023, Additional history exists Colonoscopy 08/17/2026 08/17/2021, 10/2021, [...] Priority Date/Time Associated Diagnosis Comments DIFFERENTIAL, AUTOMATED Routine 01/16/2024 12:39 PM EST Acute right ankle pain CBC Routine 01/16/2024 12:39 PM EST Acute right ankle pain CBC Routine 01/16/2024 12:39 PM EST Acute right ankle pain documented in this encounter Results * (ABNORMAL) DIFFERENTIAL, AUTOMATED (01/16/2024 12:39 PM EST) WBC 5.30 4.00 - 10.80 K/uL 01/16/2024 12:53 PM EST [facility] 56-02 Neutrophils % 83.0(H) 40.0 - 75.0 % 01/16/2024 12:53 PM EST LABORATORY [place] 56-02 Lymphocytes % 10.8(L) 18.0 - 42.0 % 01/16/2024 12:53 PM EST LABORATORY [place] 56-02 Monocytes % 5.8 1.0 - 11.0 % 01/16/2024 12:53 PM EST LABORATORY [place] 56-02 Eosinophils % 0.2 0.0 - 6.0 % 01/16/2024 12:53 PM EST [facility] 56-02 Basophils % 0.2 0.0 - 2.0 % 01/16/2024 12:53 PM EST LABORATORY [place] 56-02 Absolute Neutrophils 4.40 1.80 - 7.70 K/uL 01/16/2024 12:53 PM EST LABORATORY [place] 56-02 Absolute Lymphocytes 0.57(L) 1.00 - 4.80 K/ul 01/16/2024 12:53 PM EST LABORATORY [place] 56-02 Absolute Monocytes 0.31 0.00 - 1.10 K/uL 01/16/2024 12:53 PM EST LABORATORY [place] 56-02 Absolute Eosinophils 0.01 0.00 - 0.70 K/uL 01/16/2024 12:53 PM EST LAB[facility]ATORY [place] 56-02 Absolute Basophils 0.01 0.00 - 0.20 K/uL 01/16/2024 12:53 PM EST LABORATORY [place] 56-02 Blood Venous blood specimen / Unknown Venipuncture / Unknown 01/16/2024 12:39 PM EST 01/16/2024 12:39 PM EST Jerald Aaron PA-C LAB BLOOD OR DERABLES [facility] 56 200 [place] [address] * (ABNORMAL) CBC (01/16/2024 12:39 PM EST) WBC 5.30 4.00 - 10.80 K/uL 01/16/2024 12:53 PM EST [address] RBC 4.39 4.50 - 5.25 M/uL 01/16/2024 12:53 PM EST [place] [address] HGB 13.4(L) 14.0 - 16.8 g/dL 01/16/2024 12:53 PM EST [address] HCT 40.1 40.0 - 48.4 % 01/16/2024 12:53 PM EST [facility] 56 MCV 91.3 82.0 - 99.5 fL 01/16/2024 12:53 PM EST [address] MCH 30.5 27.0 - 34.0 pg 01/16/2024 12:53 PM EST [place] [address] MCHC 33.4 32.0 - 36.0 g/dL 01/16/2024 12:53 PM EST [address] RDW 13.6 11.5 - 15.5 % 01/16/2024 12:53 PM EST [facility] 5602 PLT 157 140 - 400 K/uL 01/16/2024 12:53 PM EST [place] [address] MPV 10.2 6.6 - 11.1 fL 01/16/2024 12:53 PM EST [facility] 5602 Blood Venous blood specimen / Unknown Venipuncture / Unknown 01/16/2024 12:39 PM EST 01/16/2024 12:39 PM EST Jerald Aaron PA-C LAB BLOOD OR DERABLES [facility] 56 200 [place] [address] documented in this encounter Visit Diagnoses Diagnosis [...] the patient have Health Care Power of Contract Design Agent? Yes, not currently available Care Teams Clerical Coordinator Relationship Specialty Start Date End Date Evelyn MARIA M, Kaz Canela MD 200 [place] [address] PCP - General 10/25/1995 documented as of this encounter
--- OUTSIDE RECORDS SUMMARY | 2024-01-26 10:40 | External Medical Summary | Summary of Care ---
Author Name Unknown Organization [facility] Address [address] [place] [address] Phone [phone] Care Team Providers Care Music Coordinator Name Role Phone Evelyn FARNZ MD, Kaz Canela Primary Care Provider [phone] Encounter Details Date Type Department Care Team [...] No 05/14/2023 Does the household have a [facility] source of income? 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 Not on file Not on file documented as of this encounter Plan of Treatment Upcoming Encounters Date Type Department Care Team (Late st Contact Info) Description 01/21/2024 9:30 AM EST Office Visit Orthopaedics, [facility] [address] [place] [address] Parvin Quinonez PA-C [address] [place] [address] 02/01/2024 9:30 AM EST Pharmacy Pharmacy Hematology Oncology [facility], [place] [address] [facility] [place] [address] [facility], [facility] Hem/Onc [address] [facility] [place] [address] 03/28/2024 1:00 PM EST Laboratory Laboratory, [address] [place] [phone] [facility], Lab [address] [place] [address] 03/28/2024 2:00 PM EST Telemedicine Hematology/Oncology, [facility] 400 [place] [address] Stan Parra MD [address] [place] [address] Buffy, Telemed [facility] Hem Onc Clinic 400 [place] [address] 03/28/2024 2:30 PM EST Immunization/Injection Hematology/Oncology Treatment, [facility] 400 [place] [address] [facility], [facility] Hem Onc [address] [place] [address] 06/04/2024 8:00 AM EDT Office Visit [facility] 200 [place] [address] Kaz Rivas III, MD 200 [place] [address] 07/15/2024 10:15 AM EDT Office Visit Urology Irene Rogers [place] [address] [facility] 270 [place] [address] Bradley Uriarte Jr., MD [address] [place] [address] 11/13/2024 1:00 PM EDT Office Visit Radiation Oncology, [facility] [address] [place] [address] Iovoli, Dragan Gavin MD [address] [place] [phone] Scheduled Procedures Name Priority Associated Diagnoses Date/Ti [...] the patient have Health Care Power of Trailhead Maintenance Worker? Yes, not currently available Care Teams Music Coordinator Relationship Specialty Start Date End Date Kaz Rivas III, MD [address] [place] [address] PCP - General 10/25/1995 documented as of this encounter
--- OUTSIDE RECORDS SUMMARY | 2024-01-26 10:40 | External Medical Summary | Summary of Care ---
Author Name Unknown Organization [facility] Address [address] [place] [address] Phone [phone] Care Team Providers Care Commuter Pilot Name Role Phone Evelyn FRANZ MD, Kaz Canela Primary Care Provider [phone] Reason for Referral * Evaluate & Treat - Unlimited Visits (Within 3 days (urgent)) - Authorized Specialty Diagnoses / Procedures Referred By Aj pendleton Referred To Contact Orthopaedic Surgery / Orthopedics Diagnoses Closed fracture of distal end of right fibula, unspecified fracture morphology, initial encounter Jerald Aaron PA-C [address] [place] [id number] Referral ID Status Reason Start Date Expiration Date Visits Requested Visits Authorized [id number] Authorized Specialty Services Required 01/16/2024 999 999 Question Answer Referral Priority Within 3 days (urgent) Where should this appointment be scheduled? [facility] What body part is the patient being seen for? Foot/Ankle/Calf What condition is the patient being seen for? Fracture including related infection Encounter Details Date Type Department Care Team ([facility] Contact Info) Description 01/16/2024 [facility] [address] [place] [address] Jerald Aaron PA-C [address] [place] [id number] Allergies Active Allergy Reactions Criticality Noted Date [...] encounter Miscellaneous Notes * Telephone Encounter - Jerald Aaron PA-C [...] 9:30 AM EST Pharmacy Pharmacy Hematology Oncology [address] [address] [facility], [facility] Hem/Onc [address] [place] [address] 03/28/2024 1:00 PM EST Laboratory Laboratory, [address] [phone] [facility], Lab [address] [place] [address] 03/28/2024 2:00 PM EST Telemedicine Hematology/Oncology, [address] [address] Stan Parra MD [facility] [place] [address] Cart, Telemed [facility] Hem Onc Clinic [address] [place] [address] 03/28/2024 2:30 PM EST Immunization/Injection Hematology/Oncology Treatment, [address] [address] [facility], Chair Hem Onc [address] [place] [address] 06/04/2024 8:00 AM EDT Office Visit [facility] [place] [address] [place] [address] Kaz Rivas III, MD [address] [place] [address] 07/15/2024 10:15 AM EDT Office Visit Urology Irene Ken [place] [address] [place] [address] Bradley Uriarte Jr., MD [address] [place] [address] 11/13/2024 1:00 PM EDT Office Visit Radiation Oncology, [facility] [address] [place] [address] IovoliDragan MD [address] [place] [address] Scheduled Orders Name Type Priority [...] the patient have Health Care Power of Editor Farm Journal? Yes, not currently available Care Teams Commuter Pilot Relationship Specialty Start Date End Date Kaz Rivas III, MD 200 [facility] [place] [address] PCP - General 10/25/1995 documented as of this encounter
--- OUTSIDE RECORDS SUMMARY | 2024-01-26 10:40 | External Medical Summary | Summary of Care ---
Author Name Unknown Organization [facility] Address [address] [place] [address] Phone [phone] Care Team Providers Care Mailroom Personnel Name Role Phone Evelyn FRANZ MD, Kaz Canela Primary Care Provider [phone] Encounter Details Date Type Department Care Team [...] No 05/14/2023 Does the household have a [facility] source of income? 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 on file Not on file documented as of this encounter Plan of Treatment Upcoming Encounters Date Type Department Care Team (Late st Contact Info) Description 01/21/2024 9:30 AM EST Office Visit Orthopaedics, [facility] [address] [place] [address] Parvin Quinonez PA-C [address] [place] [address] 02/01/2024 9:30 AM EST Pharmacy Pharmacy Hematology Oncology [facility], [place] [address] [facility] [place] [address] [facility], [facility] Hem/Onc [address] [facility] [place] [address] 03/28/2024 1:00 PM EST Laboratory Laboratory, [address] [place] [phone] [facility], Lab [address] [place] [address] 03/28/2024 2:00 PM EST Telemedicine Hematology/Oncology, 400 [place] [address] Stan Parra MD [address] [place] [address] Buffy, Telemed [facility] Hem Onc Clinic 400 [place] [address] 03/28/2024 2:30 PM EST Immunization/Injection Hematology/Oncology Treatment, [address] [place] [address] [facility], [facility] Hem Onc [address] [place] [address] 06/04/2024 8:00 AM EDT Office Visit [facility] 200 [place] [address] Kaz Rivas III, MD 200 [place] [address] 07/15/2024 10:15 AM EDT Office Visit Urology Irene Rogers [place] [address] [facility] [address] [place] [address] Bradley Uriarte Jr., MD [address] [place] [address] 11/13/2024 1:00 PM EDT Office Visit Radiation Oncology, [address] [facility] [place] [address] Iovoli, Dragan Gvain MD [address] [place] [phone] Scheduled Procedures Name Priority Associated Diagnoses Date/Ti [...] the patient have Health Care Power of Senior Oracle Developer? Yes, not currently available Care Teams Mailroom Personnel Relationship Specialty Start Date End Date Kaz Rivas III, MD [address] [place] [address] PCP - General 10/25/1995 documented as of this encounter
--- OUTSIDE RECORDS SUMMARY | 2024-01-26 10:40 | External Medical Summary | Summary of Care ---
Author Name Unknown Organization [facility] Address [address] [place] [address] Phone [phone] Care Team Providers Care Human Resource Adviser Name Role Phone Evelyn FRANZ MD, Kaz Canela Primary Care Provider [phone] Reason for Referral * Evaluate & Treat - Unlimited Visits (Within 3 days (urgent)) - Authorized Specialty Diagnoses / Procedures Referred By Aj pendleton Referred To Contact Orthopaedic Surgery / Orthopedics Diagnoses Closed fracture of distal end of right fibula, unspecified fracture morphology, initial encounter Jerald Aaron PA-C [address] [place] [id number] Referral ID Status Reason Start Date Expiration Date Visits Requested Visits Authorized [id number] Authorized Specialty Services Required 01/16/2024 999 999 Question Answer Referral Priority Within 3 days (urgent) Where should this appointment be scheduled? [facility] What body part is the patient being seen for? Foot/Ankle/Calf What condition is the patient being seen for? Fracture including related infection Encounter Details Date Type Department Care Team ([facility] Contact Info) Description 01/16/2024 [facility] [address] [place] [address] Jerald Aaron PA-C [address] [place] [id number] Allergies Active Allergy Reactions Criticality Noted Date [...] 5:55 PM EST Left generic message on Fangtek machine asking pt to return our call. [...] 9:30 AM EST Pharmacy Pharmacy Hematology Oncology [place] [address] [place] [address] [facility] Hem/Onc [facility] [place] [address] 03/28/2024 1:00 PM EST Laboratory Laboratory, [address] [phone] [facility], Lab [address] [place] [address] 03/28/2024 2:00 PM EST Telemedicine Hematology/Oncology, [address] [address] Stan Parra MD [address] [place] [address] Cart, Telemed [facility] Hem Onc Clinic [address] [place] [address] 03/28/2024 2:30 PM EST Immunization/Injection Hematology/Oncology Treatment, [address] [address] [facility], [facility] Hem Onc [address] [place] [address] 06/04/2024 8:00 AM EDT Office Visit Family Practice Israel Shen [place] 200 [facility] [place], [place] [address] Kza Rivas III, MD 200 [facility] [place], [place] [address] 07/15/2024 10:15 AM EDT Office Visit Urology Irene Rogers [place] [address] [place] [address] Bradley Uriarte Jr., MD [address] [facility] [place] [address] 11/13/2024 1:00 PM EDT Office Visit Radiation Oncology, [facility] [address] [place] [address] IovoliDragan MD [address] [place] [phone] Scheduled Orders Name Type Priority Associated Diagnoses [...] the patient have Health Care Power of Blow Torch Burner? Yes, not currently available Care Teams Human Resource Adviser Relationship Specialty Start Date End Date Kaz Rivas III, MD [address] [place] [address] PCP - General 10/25/1995 documented as of this encounter
--- OUTSIDE RECORDS SUMMARY | 2024-01-26 10:40 | External Medical Summary | Summary of Care ---
Author Name Unknown Organization [facility] Address [address] [place] [address] Phone [phone] Care Team Providers Care Chain Mender Name Role Phone Evelyn FRANZ MD, Kaz Canela Primary Care Provider [phone] Encounter Details Date Type Department Care Team [...] No 05/14/2023 Does the household have a [facility] source of income? 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 Not on file Not on file documented as of this encounter Plan of Treatment Upcoming Encounters Date Type Department Care Team (Late st Contact Info) Description 01/21/2024 9:30 AM EST Office Visit Orthopaedics, [facility] [address] [place] [address] Parvin Quinonez PA-C [address] [place] [address] 02/01/2024 9:30 AM EST Pharmacy Pharmacy Hematology Oncology [facility] [place] [address] [facility] [place] [address] [facility], [facility] Hem/Onc [address] [facility] [place] [address] 03/28/2024 1:00 PM EST Laboratory Laboratory, [address] [place] [phone] [facility], Lab [address] [place] [address] 03/28/2024 2:00 PM EST Telemedicine Hematology/Oncology, [facility] 400 [place] [address] Stan Parra MD [address] [place] [address] Buffy, Telemed [facility] [address] [place] [address] 03/28/2024 2:30 PM EST Immunization/Injection Hematology/Oncology Treatment, [facility] 400 [place] [address] [facility], [facility] Hem Onc [address] [place] [address] 06/04/2024 8:00 AM EDT Office Visit [facility] 200 [place] [address] Kaz Rivas III, MD 200 [place] [address] 07/15/2024 10:15 AM EDT Office Visit Urology Irene Rogers [place] [address] [facility] 270 [place] [address] Bradley Uriarte Jr., MD [address] [place] [address] 11/13/2024 1:00 PM EDT Office Visit Radiation Oncology, [facility] [address] [place] [address] Iovoli, Dragan Gavin MD [address] [place] [phone] Scheduled Procedures Name Priority Associated Diagnoses Date/Ti [...] the patient have Health Care Power of Boilermaker Industrial Boilers? Yes, not currently available Care Teams Chain Mender Relationship Specialty Start Date End Date Kaz Rivas III, MD [address] [place] [address] PCP - General 10/25/1995 documented as of this encounter
--- OUTSIDE RECORDS SUMMARY | 2024-01-26 10:40 | External Medical Summary | Summary of Care ---
Author Name Unknown Organization [facility] Address [address] [place] [address] Phone [phone] Care Team Providers Care Intermodal Owner Operator Truck Driver Name Role Phone Evelyn FRANZ MD, Kaz Canela Primary Care Provider [phone] Reason for Visit * Reason Comments Outpatient Testing Encounter Details Date Type Department Care Team (Late st Contact Info) Description 01/16/2024 12:30 PM EST Laboratory Laboratory [facility] [address] [place] [address] [place], Lab Scenery [address] [place] [address] Acute right ankle pain Allergies Active Allergy [...] 9:30 AM EST Pharmacy Pharmacy Hematology Oncology [place] [address] [place] [address] [facility] Hem/Onc [address] [place] [address] 03/28/2024 1:00 PM EST Laboratory Laboratory, [address] [place] [address] [facility], Lab [address] [place] [address] 03/28/2024 2:00 PM EST Telemedicine Hematology/Oncology, [facility] [address] [place] [address] Stan Parra MD [address] [place] [address] Cart, Telemed [facility] Hem Onc Clinic [address] [place] [address] 03/28/2024 2:30 PM EST Immunization/Injection Hematology/Oncology Treatment, [address] [address] [facility], Chair Hem Onc [address] [place] [address] 06/04/2024 8:00 AM EDT Office Visit [facility] [address] [place] [address] Kaz Rivas III, MD 200 [place] [address] 07/15/2024 10:15 AM EDT [facility] [address] [place] [address] Bradley Uriarte Jr., MD 27 [place] [address] 11/13/2024 1:00 PM EDT Office Visit Radiation Oncology, [facility] [address] [place], [place] [phone] IovoliDragan MD [address] [place] [phone] Pending Results Name Type Priority Associated Diagnoses Date /Time LYME DISEASE ANTIBODY SCREEN WITH REFLEX TO [...] 4.80 K/ul 01/16/2024 12:53 PM EST [facility] 56-02 Absolute Monocytes 0.31 0.00 - 1.10 K/uL 01/16/2024 12:53 PM EST [facility] 56-02 Absolute Eosinophils 0.01 0.00 - 0.70 K/uL 01/16/2024 12:53 PM EST [place] [address] Absolute Basophils 0.01 0.00 - 0.20 K/uL 01/16/2024 12:53 PM EST [facility] 56 Blood Venous blood specimen / Unknown Venipuncture / Unknown 01/16/2024 12:39 PM EST 01/16/2024 12:39 PM EST Jerald Aaorn PA-C LAB BLOOD OR DERABLES [place] [address] [place] [address] * (ABNORMAL) CBC (01/16/2024 12:39 PM EST) WBC 5.30 4.00 - 10.80 K/uL 01/16/2024 12:53 PM EST [place] [address] RBC 4.39 4.50 - 5.25 M/uL 01/16/2024 12:53 PM [place] [address] HGB 13.4(L) 14.0 - 16.8 g/dL 01/16/2024 12:53 PM [place] [address] HCT 40.1 40.0 - 48.4 % 01/16/2024 12:[address] MCV 91.3 82.0 - 99.5 fL 01/16/2024 12:53 PM [place] [address] MCH 30.5 27.0 - 34.0 pg 01/16/2024 12:53 PM [place] [address] MCHC 33.4 32.0 - 36.0 g/dL 01/16/2024 12:[address] RDW 13.6 11.5 - 15.5 % 01/16/2024 12:[address] PLT 157 140 - 400 K/uL 01/16/2024 12:[address] MPV 10.2 6.6 - 11.1 fL 01/16/2024 12:53 PM [place] [address] Blood Venous blood specimen / Unknown Venipuncture / Unknown 01/16/2024 12:39 PM EST 01/16/2024 12:39 PM EST Jerald Aaron PA-C LAB BLOOD OR DERABLES [facility] [address] [place] [address] * (ABNORMAL) COMPREHENSIVE METABOLIC PANEL (01/16/2024 12:39 PM EST) BUN 13 6 - 20 mg/dL 01/16/2024 1:46 PM EST [facility] 56 CREATININE 0.8 0.6 - 1.2 mg/dL 01/16/2024 1:46 PM EST [address] EGFR >90 >=60 mL/min 01/16/2024 1:46 PM EST [facility] 56 Comment:eGFR is calculated b ased on the CKD-EPI 2020 equation. SODIUM 142 135 - 146 mmol/L 01/16/2024 1:[address] POTASSIUM 3.9 3.5 - 5.1 mmol/L 01/16/2024 1:46 PM [facility] 56 CHLORIDE 105 98 - 107 mmol/L 01/16/2024 1:46 PM [facility] 56 CO2 25 22 - 32 mmol/L 01/16/2024 1:46 PM [facility] 56 ANION GAP 12 7 - 15 mmol/L 01/16/2024 1:46 PM [facility] 56 GLUCOSE 129(H) 70 - 120 mg/dL 01/16/2024 1:46 PM [facility] 56 Albumin 4.2 3.8 - 5.0 g/dL 01/16/2024 1:46 PM [facility] 56 AST 21 10 - 50 U/L 01/16/2024 1:46 PM [facility] 56 Alkaline Phosphatase 81 35 - 130 U/L 01/16/2024 1:46 PM [facility] 56 Bilirubin, Total 0.6 <=1.2 mg/dL 01/16/2024 1:46 PM [facility] 56 CALCIUM 9.3 8.4 - 10.2 mg/dL 01/16/2024 1:46 PM EST [facility] [place] 56- Protein 6.4 6.0 - 8.3 g/dL 01/16/2024 1:46 PM EST [facility] [place] 56-02 ALT 13 10 - 50 U/L 01/16/2024 1:46 PM EST [facility] [place] 56-02 Blood Venous blood specimen / Unknown Venipuncture / Unknown 01/16/2024 12:39 PM EST 01/16/2024 12:39 PM EST Jerald Aaron PA-C LAB BLOOD OR DERABLES [facility] 56- [address] [facility] [address] * URIC ACID (01/16/2024 12:39 PM EST) Uric Acid 3.4 3.4 - 7.0 mg/dL 01/16/2024 8:00 PM EST [facility]ATORY [facility] Blood Venous blood specimen / Unknown Venipuncture / Unknown 01/16/2024 12:39 PM EST 01/16/2024 12:39 PM EST Jerald Aaron PA-C LAB BLOOD OR DERABLES [facility] [address] [place] [address] documented in this encounter Visit Diagnoses Diagnosis [...] patient have Health Care Power of Oil Separator? Yes, not currently available Care Teams Intermodal Owner Operator Truck Driver Relationship Specialty Start Date End Date Kaz Rivas III, MD [address] [facility] [place] [address] PCP - General 10/25/1995 documented as of this encounter
--- OUTSIDE RECORDS SUMMARY | 2024-01-26 10:41 | External Medical Summary | Summary of Care ---
Author Name Unknown Organization [facility] Address [address] [place] [address] Phone [phone] Care Team Providers Care Nuclear Monitoring Technician Name Role Phone Evelyn FRANZ MD, Kaz Canela Primary Care Provider [phone] Reason for Visit * Reason Comments Outpatient Testing Encounter Details Date Type Department Care Team (Late st Contact Info) Description 12/31/2023 12:00 PM EDT Laboratory Laboratory, [facility] [address] [place] [address] [facility], Lab [address] [place], [place] [phone] Malignant neoplasm of prostate (HCC) Allergies Active Allergy Reactions Criticality Noted Date Comments Levofloxacin Muscle pain 02/07/2018 Oxycodone Nausea/vomiting 02/07/2018 documented as of this encounter (statuses as of 12/31/2023) Medications Medication Sig Dispensed Refills Start Date [...] 4 doses. 4 Kit 12/14/2023 09/10/2024 Active documented as of this encounter (statuses as of 12/31/2023) Active Problems Problem Noted Date Diagnosed Date [...] as of this encounter (statuses as of 12/31/2023) Resolved Problems Problem Noted Date Diagnosed Date Resolved Date Supraclavicular lymphadenopathy 02/11/2016 01/02/2018 Screening for prostate cancer 04/15/2003 05/20/2008 Overview: Resolved per Screening Diagnosis Protocol #6 Acute cholecystitis 11/25/2002 05/07/19 19 Diaphragmatic hernia 019 documented as of this encounter (statuses as of 12/31/2023) Immunizations Name Administration Dates Next Due COVID-19 [...] 05/14/2023 Does the household have a re lar source of income? (Household - for ages [...] Care Team (Late st Contact Info) Description 12/31/2023 1:00 PM EDT Telemedicine Hematology/Oncology, [address] [place] [address] Stan Parra MD [address] [place] [address] Cart, Telemed [facility] Hem Onc [facility] [address] [place] [address] [place] [address] 12/31/2023 1:30 PM EDT Immunization/Injection Hematology/Oncology Treatment, [address] [address] [facility], Chair8 Hem Onc [address] [place], [place] [address] [place] [address] 02/01/2024 9:30 AM EST Pharmacy Pharmacy Hematology Oncology [facility] [address] [place] [address] [facility] Hem/Onc [address] [place] [facility] [place] [address] 06/04/2024 8:00 AM EDT Office Visit Family Practice [facility] [place] 200 [facility] [place], [place] [address] Kaz Rivas III, MD 200 [facility] [place] [address] 07/15/2024 10:15 AM EDT Office Visit Urology [place] [address] [place] [address] Bradley Uriarte Jr., MD [address] [place] [address] 11/13/2024 1:00 PM EDT Office Visit Radiation Oncology, [facility] [address] [place] [address] IovoliDragan MD [address] [place] [address] Pending Results Name Type Priority Associated Diagnoses Date /Time CBC WITH WBC DIFFERENTIAL Lab STAT Malignant neoplasm of prostate (HCC) 12/31/2023 11:55 AM EDT COMPREHENSIVE METABOLIC PANEL Lab STAT Malignant neoplasm of prostate (HCC) 12/31/2023 11:55 AM EDT PSA Lab STAT Malignant neoplasm of prostate (HCC) 12/31/2023 11:55 AM EDT CBC Lab STAT Malignant neoplasm of prostate (HCC) 12/31/2023 11:55 AM EDT DIFFERENTIAL, AUTOMATED Lab STAT Malignant neoplasm of prostate (HCC) 12/31/2023 11:55 AM EDT Scheduled Procedures Name Priority Associated Diagnoses Date/Ti me COLONOSCOPY FLEXIBLE PROXIMA L DIAGNOSTIC Recall History of colonic polyps Health Maintenance Due Date Last Done Comments Cologuard 07/20/1995 Sigmoidoscopy 07/20/1995 Fecal Occult Blood Test 06/15/2002 06/15/2001 Adult Wellness Visit 2016 Depression Screening 01/04/2020 01/03/2019 DTap/Tdap Vaccines (2 - Td or Tdap) 08/25/2020 08/25/2010 COVID-19 Vaccine ( - season) 2023 04/06/2021, 04/06/2021, 05/21/2020, Additional history exists Albumin/Creatinine Ratio 10/05/2024 10/05/2021 GFR 12/03/2024 12/04/2023, 10/10, 09/28/2023, Additional history exists Colonoscopy 08/17/2026 08/17/2021, 10/2021, [...] prostate documented in this encounter Advance Directives * [...] the patient have Health Care Power of Head Waiter? Yes, not currently available Care Teams Nuclear Monitoring Technician Relationship Specialty Start Date End Date Kaz Rivas III, MD [address] [place] [address] PCP - General 10/25/1995 documented as of this encounter
--- OUTSIDE RECORDS SUMMARY | 2024-01-26 10:41 | External Medical Summary ---
Author Name Unknown Address Unknown Organization K01:LAB[facility]ATORY [facility] [place] [address] [facility] [address] Laboratory Report Ordering Provider Test Date Status JESÚS BESS 12/31/2023 11:55:13 Final Observation Date Value Abnormality Reference (Units ) Status PSA 12/31/2023 11:55:13 <0.02 <4.10 (ng/ mL) Final Performing Location LABORATORY [facility] - [address] [facility] [address]
--- OUTSIDE RECORDS SUMMARY | 2024-01-26 10:41 | External Medical Summary | Summary of Care ---
Author Name Unknown Organization [facility] Address [address] [place] [address] Phone [phone] Care Team Providers Care Ortho Tech Name Role Phone Evelyn FRANZ MD, Kaz Canela Primary Care Provider [phone] Reason for Visit * Reason Comments Patient Assistance Program Encounter Details Date Type Department Care Team (Late st Contact Info) Description 06/07/2022 Documentation Hematology Oncology [facility] [address] [place] [address] Stan Parra MD [address] [place] [address] Allergies Active Allergy Reactions Criticality Noted Date Comments Levofloxacin Muscle pain 02/07/2018 Oxycodone Nausea/vomiting 02/07/2018 documented as of this encounter (statuses as of 12/28/2023) Medications Medication Sig Dispensed Refills Start Date End Date Status Multiple Vitamins-Mineral s (CENTRUM SILVER 50+MEN) TABS Take by mouth. Active Acetaminophen ER 650 MG Oral Tablet Extended Release Take 1 Tablet by mouth every 8 hours as needed for Pain, Severe. 30 Tablet 2 Active Vitamin D3 10 MCG (400 UNIT) Oral Capsule Take 1 Capsule by mouth in the morning. 06/17/19 23 Discontinued Sucralfate 1 GM Oral Tablet (Carafate)Indica tions:Gastritis TAKE 1 TABLET 1 HOUR BEFOREMEALS AND AT BEDTIME, DISSOLVE IN WATER 120 Tablet 5 2 08/23/19 23 Discontinued Rosuvastatin Calcium 5 MG Oral Tablet (Crestor) Take by mouth 1 Tablet in the morning. 90 Tablet 11 2 08/02/19 24 Discontinued(Ref ill) traMADol HCl 50 MG Oral Tablet (Ultram)Indicati ons:Closed nondisplaced fracture of first cervical vertebra with delayed healing, unspecified fracture morphology, subsequent encounter,Closed fracture of second lumbar vertebra with routine healing, unspecified fracture morphology, subsequent encounter,Compre ssion fracture of body of thoracic vertebra (HCC) Take 1 Tablet (50 mg) by mouth every 8 hours as needed for Pain, Severe. 20 Tablet 2 05/31/19 24 Discontinued(Med ication List Clean Up) Methocarbamol 500 MG Oral Tablet (Robamol) Take 1 Tablet by mouth 2 times a day as needed for Muscle spasms. 05/31/19 24 Discontinued(Med ication List Clean Up) Apixaban 5 MG Oral [...] months for 4 doses 4 Kit 3 09/30/19 23 Discontinued(Ref ill) documented as of this encounter (statuses as of 12/28/2023) Active Problems Problem Noted Date Diagnosed Date [...] as of this encounter (statuses as of 12/28/2023) Resolved Problems Problem Noted Date Diagnosed Date Resolved Date Supraclavicular lymphadenopathy 02/11/2016 01/02/2018 Screening for prostate cancer 04/15/2003 05/20/2008 Overview: Resolved per Screening Diagnosis Protocol #6 Acute cholecystitis 11/25/2002 05/07/19 19 Diaphragmatic hernia 019 documented as of this encounter (statuses as of 12/28/2023) Immunizations Name Administration Dates Next Due COVID-19 [...] No 05/14/2023 Does the household have a [facility] healthcare facility[facility] source of income? (Household - for ages [...] this encounter Progress Notes * Aniyah Diego, electric motors salesperson - 12/27/2023 2:16 PM EDT 12/27/23 - received eligard. Defer to 03/18/2024 to order med Estimated Delivery Date: [facility] - order eligard on 03/18/2024. Thank you, Aniyah Diego Medication Quality Assurance Clerk [facility] [email or web address] 2:19 PM * Jordan Andrade OSA - 12/14/2023 8:54 AM EDT POM Reason: Insurance mandated Insurance Info: Aetna Medicare Advantage Auth Expirin06/05/2025 Pharmacy/Company: [facility] Phone number: IM residential service technician [place] Location: [facility] Estimated Delivery Date: [facility] - delivers 12/27/2023 - eligard Appointment Date: 12/31/2023 Ordered Date: 12/14/2023 Delivery Address: [facility] Attn: 6th floor IIP POM [address] [place] [address] RX: Eligard Dose: 22.5mg 3 mo Quantity: [...] - 09/21/2023 2:42 PM EDT Krysta Lr electric motors salesperson 09/21/2023 14:29 Medication received 09/21/23 Estimated Delivery Date: [facility] - order med 12/15/2023 * Jordan Andrade OSA - 09/14/2023 7:42 AM EDT POM Reason: Insurance mandated Insurance Info: A[employer]na Medicare Advantage Auth Expirin06/05/2025 Pharmacy/Company: [facility] Phone number: IM residential service technician [place] Location: [facility] Estimated Delivery Date: [facility] - 09/21/2023 Appointment Date: 09/28/2023 Ordered Date: 09/14/2023 Delivery Address: Attn: 6th floor IIP POM [address] [place] [address] RX: Eligard Dose: 22.5mg 3 mo Quantity: [...] OSA - 06/14/2023 3:07 PM EDT Krysta Lr, electric motors salesperson 06/14/2023 12:40 Received 1 Eligard 22.5 Kit 06/14/23 Estimated Delivery Date: [facility] - order med 09/14/2023 * Jordan Andrade OSA - 06/05/2023 9:19 AM EDT POM Reason: Insurance mandated Insurance Info: A[employer]na Medicare Advantage Auth Expirin06/05/2025 Pharmacy/Company: [facility] Phone number: IM residential service technician [place] Location: [facility] Estimated Delivery Date: [facility] - 06/14/2023 Appointment Date: 06/22/2023 Ordered Date: 06/05/2023 Delivery Address: [facility]th [facility] [address] [place] [address] RX: Eligard Dose: 22.5mg 3 mo Quantity: [...] DX: C61 Prostate Cancer * Mary Jo Gar, electric motors salesperson - 03/21/2023 3:56 PM EST 03/21/2023 - Received medication. Defer to 05/16/2023 to order refill. Estimated Delivery Date: received 03/21/2023 - [facility] Appointment Date: 03/16/2023 Ordered Date: 03/02/2023 Delivery Address: Attn: 6th floor IIP [address] [place] [address] RX: Eligard Dose: 22.5mg 3 mo Quantity: 1 Manufactured Supplied: No Refills remaining: Injection Number for this order: Next Refill: 05/16/2023 Upcoming Appt: 05/30/2023 * Jordan Andrade OSA - 03/14/2023 2:29 PM EST 03/15/2023 - "Caterina, our buying team said they are waiting to hear from a underwriting service representative from [facility] regarding the ordering issue but we have [...] - Per Vida Kelly at [facility] "Piyush Weissgard did not come in today [facility] Vida Mcwilliams is working with [...] Medicare Advantage Auth Expirin06/05/2025 Pharmacy/Company: [facility] Phone number: IM residential service technician [place] Location: [facility] Estimated Delivery Date: 03/21/2023 - [facility] Appointment Date: 03/16/2023 Ordered Date: 03/02/2023 Delivery Address: Attn: [address] [place] [address] RX: Eligard Dose: 22.5mg 3 mo Quantity: [...] defer to 03/02/2023 to order Eligard from [facility] * Galina Barnett OSA - 12/06/2022 2:21 PM EDT Krysta Lr, electric motors salesperson 12/06/2022 13:58 | Received 1 kit of Eligard 12/06/2022 Estimated Delivery Date: Received 12/06/2022-[facility] ABEL Donald [facility] 12/06/2022, 2:21 PM * Mary Jo Gar, electric motors salesperson - 11/27/2022 9:02 AM EDT 11/27/2022 - IM'd [facility] to fill. Medication ordered. Defer to 12/06/2022 for delivery. POM Reason: Insurance mandated Insurance Info: Aetna Medicare Advantage Auth Expirin06/05/2025 Pharmacy/Company: [facility] Phone number: IM residential service technician [place] Location: [facility] Estimated Delivery Date: 12/06/2022 - [facility] Appointment Date: 12/11/2022 Ordered Date: 11/27/2022 Delivery Address: Attn: 6th floor IIP [address] [place] [address] RX: Eligard Dose: 22.5mg 3 mo Quantity: [...] 4 DX: C61 Prostate Cancer ABEL Cerrato [facility] 11/27/2022, 1:19 PM * Mary Jo Gar, electric motors salesperson - 11/20/2022 12:01 PM EDT 11/20/2022 - Defer to 01/27/2023 to order refill. ABEL Cerrato [facility] 11/20/2022, 12:02 PM * Mary Jo Gar electric motors salesperson - 08/31/2022 10:15 AM EDT 09/08/2022 - Received medication per pharmacy staff. Defer 11/20/2022 for refill. 08/31/2022 - IM'd [facility] for refill. Defer to 09/07/2022 for delivery. POM Reason: Insurance mandated Insurance Info: Aetna Medicare Advantage Auth Expirin06/05/2025 Pharmacy/Company: [facility] Phone number: IM residential service technician [place] Location:[facility] Estimated Delivery Date: received 09/07/2022 - [facility] Appointment Date: 09/11/2022 Ordered Date:08/31/2022 Delivery Address:Attn: 6th floor IIP POM [address] [place] [address] RX:Eligard Dose:22.5mg 3 mo Quantity:1 Manufactured Supplied:No [...] x 4 DX:C61 Prostate Cancer ABEL Cerrato [facility] 08/31/2022, 10:18 AM * Liza Hoff OSA - 06/15/2022 2:56 PM EDT Estimated Delivery Date: Received 06/15/2022 - [facility] * Mary Jo Gar electric motors salesperson - 06/14/2022 11:44 AM EDT 06/14/2022 - IM'd [facility] to fill script. Defer to 06/15/2022 for delivery. POM Reason: Insurance mandated Insurance Info: Aetna Medicare Advantage Auth Expirin06/05/2025 Pharmacy/Company: [facility] Phone number: IM residential service technician [place] Location: [facility] Estimated Delivery Date: 06/15/2022 - [facility] Appointment Date: 06/16/2022 Ordered Date:06/14/2022 Delivery Address: Attn: 6th floor IIP POM [address] [place] [address] RX: Eligard Dose: 22.5mg 3 mo Quantity: [...] 4 DX: C61 Prostate Cancer ABEL Cerrato [facility] 06/14/2022, 11:50 AM * Galina Barnett OSA - 06/07/2022 9:47 AM EDT 06/07/2022- Reached out to Alba Iqbal for test claim POM Reason: Insurance Info: Auth Expiring: Pharmacy/Company: Phone number: [place] Location: [facility] Estimated Delivery Date: TBD Appointment Date: Ordered Date: Delivery Address: Attn: 6th floor IIP POM [address] [place] [address] RX: Eligard Dose: 22.5mg 3 mo Quantity: [...] 4 DX: C61 Prostate Cancer ABEL Donald [facility] 06/07/2022, 10:14 AM documented in this encounter Plan of Treatment Upcoming Encounters Date Type Department Care Team (Late st Contact Info) Description 12/31/2023 12:00 PM EDT Laboratory Laboratory, [address] [address] [facility], Lab [address] [place] [address] 12/31/2023 1:00 PM EDT Telemedicine Hematology/Oncology, [address] [address] Stan Parra MD [address] [place] [address] Cart, Telemed [facility] Hem Onc Clinic [address] [place] [address] 12/31/2023 1:30 PM EDT Immunization/Injection Hematology/Oncology Treatment, [address] [address] [facility], Chair8 Hem Onc [address] [place] [address] 02/01/2024 9:30 AM EST Pharmacy Pharmacy Hematology Oncology [facility] [address] [place] [address] [facility] Hem/Onc [address] [place] [address] 06/04/2024 8:00 AM EDT Office Visit [facility] [place] 200 [facility] [place] [address] EvelynKaz napier III, MD 200 [facility] [place] [address] 07/15/2024 10:15 AM EDT Office Visit Urology [place] [address] [place] [address] Bradley Uriarte Jr., MD [address] [place] [address] 11/13/2024 1:00 PM EDT Office Visit Radiation Oncology, [facility] [address] [place] [address] [place], Dragan Gavin MD [address] [place] [address] Scheduled Procedures Name Priority Associated [...] the patient have Health Care Power of Atmospheric Chemist? Yes, not currently available Care Teams Ortho Tech Relationship Specialty Start Date End Date Kaz Rivas III, MD [address] [place] [address] PCP - General 10/25/1995 documented as of this encounter
--- OUTSIDE RECORDS SUMMARY | 2024-01-26 10:41 | External Medical Summary ---
Author Name Unknown Address Unknown Organization K1F:LABORATORY [facility] - [address] [place] [address] Ave. [place] [address] Laboratory Report Ordering Provider Test Date Status JESÚS BESS 12/31/2023 11:55:13 Final Observation Date Value Abnormality Reference (Units ) Status WBC, Total 12/31/2023 11:55:13 4.17 4.00-10.80 (K/uL) Final RBC 12/31/2023 11:55:13 4.14 4.50-5.25 (M/uL) Final Hemoglobin 12/31/2023 11:55:13 12.7 Below low normal 14.0-16.8 (g/dL) Final HCT 12/31/2023 11:55:13 37.7 Below low normal 40.0-48.4 (%) Final MCV 12/31/2023 11:55:13 91.1 82.0-99.5 (fL) Final MCH 12/31/2023 11:55:13 30.7 27.0-34.0 (pg) Final MCHC 12/31/2023 11:55:13 33.7 32.0-36.0 (g/dL) Final RDW 12/31/2023 11:55:13 13.3 11.5-15.5 (%) Final Platelets 12/31/2023 11:55:13 147 140-400 (K/uL) Final MPV 12/31/2023 11:55:13 10.4 6.6-11.1 (fL) Final Nucleated erythrocytes/100 leukocytes [Ratio] in Blood by Automated count 12/31/2023 11:55:13 0 <=0 (/100 WBCs) Final Performing Location LABORATORY [facility] - [address] [facility] [address] [place] [address]
--- OUTSIDE RECORDS SUMMARY | 2024-01-26 10:41 | External Medical Summary ---
Author Name Unknown Address Unknown Organization K01:LABORATORY [facility] [place] - [address] [place] [address] Laboratory Report Ordering Provider Test Date Status ALBERTO KUMAR 01/16/2024 12:39:31 Final Observation Date Value Abnormality Reference (Units ) Status Uric Acid 01/16/2024 12:39:31 3.4 3.4-7.0 (m g/dL) Final Performing Location LABORATORY [facility] - [address] [place] [address]
--- OUTSIDE RECORDS SUMMARY | 2024-01-26 10:41 | External Medical Summary ---
Author Name Unknown Address Unknown Organization K1F:LAB[facility]ATORY [facility] [address] [facility] [place] [address] Laboratory Report Ordering Provider Test Date Status JESÚS BESS 12/31/2023 11:55:13 Final Observation Date Value Abnormality Reference (Units ) Status BUN 12/31/2023 11:55:13 15 6-20 (mg/dL) Final Creatinine 12/31/2023 11:55:13 0.8 0.6-1.2 (mg/dL) Final Glomerular filtration rate/1.73 sq M.predicted [Volume Rate/Area] in Serum, Plasma or Blood by Creatinine-based formula (CKD-EPI) 12/31/2023 11:55:13 >90 >=60 (mL/min) Final eGFR is calculated based on the CKD-EPI 2020 equation. Sodium 12/31/2023 11:55:13 141 135-146 (m mol/L) Final Potassium 12/31/2023 11:55:13 3.8 3.5-5.1 (m mol/L) Final Cl 12/31/2023 11:55:13 106 98-107 (mm ol/L) Final CO2 12/31/2023 11:55:13 26 22-32 (mmo l/L) Final Anion gap 12/31/2023 11:55:13 9 7-15 (mmol /L) Final Glucose 12/31/2023 11:55:13 131 Above high normal 70 -120 (mg/dL) Final Albumin 12/31/2023 11:55:13 4.1 3.8-5.0 (g /dL) Final AST (Aspartate aminotransferase) 12/31/2023 11:55:13 29 10-50 (U/L) Fin al Alk Phos 12/31/2023 11:55:13 72 35-130 (U/ L) Final Bilirubin, Total 12/31/2023 11:55:13 0.5 <=1 .2 (mg/dL) Final Calcium 12/31/2023 11:55:13 9.2 8.4-10.2 ( mg/dL) Final Protein 12/31/2023 11:55:13 6.4 6.0-8.3 (g /dL) Final ALT (Alanine aminotransferase) 12/31/2023 11:55:13 16 10-50 (U/L) José kuhn Performing Location LABORATORY [facility] - [address] [place] [address] [place] [address]
--- OUTSIDE RECORDS SUMMARY | 2024-01-26 10:41 | External Medical Summary ---
Author Name Unknown Address Unknown Organization K1F:[facility]ORY [facility] - [address] [facility] [place] [address] Laboratory Report Ordering Provider Test Date Status JESÚS BESS 12/31/2023 11:55:13 Final Observation Date Value Abnormality Reference (Units ) Status SYNC LEUKOCYTES IN BLOOD BY AUTOMATED COUNT 12/31/2023 11:55:13 4.17 4.00-10.80 (K/uL) Final Segs 12/31/2023 11:55:13 75.6 Above high normal 40.0-75.0 (%) Final Lymphs % 12/31/2023 11:55:13 15.1 Below low normal 18.0-42.0 (%) Final Monos 12/31/2023 11:55:13 7.4 1.0-11.0 (%) Final Eosinophils 12/31/2023 11:55:13 1.2 0.0-6.0 (%) Final Basos 12/31/2023 11:55:13 0.5 0.0-2.0 (%) Final Immature Granulocyte, Percent 12/31/2023 11:55:13 0.2 0.0-2.0 (%) Final Absolute Segs 12/31/2023 11:55:13 3.15 1.80-7.70 (K/uL) Final Lymphs, absolute 12/31/2023 11:55:13 0.63 Below low normal 1.00-4.80 (K/ul) Final Monos, Abs 12/31/2023 11:55:13 0.31 0.00-1.10 (K/uL) Final Eos, Abs 12/31/2023 11:55:13 0.05 0.00-0.70 (K/uL) Final Basos, Abs 12/31/2023 11:55:13 0.02 0.00-0.20 (K/uL) Final Immature Granulocytes, Number 12/31/2023 11:55:13 0.01 0.00-0.20 (K/uL) Final Performing Location LABORATORY [facility] - [address] [place], [place] [address] [place] [address]
--- OUTSIDE RECORDS SUMMARY | 2024-01-26 10:41 | External Medical Summary | Summary of Care ---
Author Name Unknown Organization [facility] Address [address] [place] [address] Phone [phone] Care Team Providers Care Racehorse Trainer Name Role Phone Evelyn FRANZ MD, Kaz Canela Primary Care Provider [phone] Reason for Visit * Episode Based Medications (Routine) - Authorized Specialty Diagnoses / Procedures Referred By Aj pendleton Referred To Contact Diagnoses Malignant neoplasm of prostate (HCC) Procedures Abiraterone Acetate 250MG tablets Stan Parra MD [address] [place] [address] Hem/On[address] [facility] [address] [place] [address] Referral ID Status Reason Start Date Expiration Date V isits Requested Visits Authorized [id number] Authorized 05/22/2022 05/21/2025 999 [id number] Encounter Details Date Type Department Care Team (Late st Contact Info) Description 12/31/2023 1:00 PM EDT Telemedicine Hematology/Oncology, [facility] [address] [place] [address] Stan Parra MD [address] [place] [address] Cart, Telemed [facility] Hem Onc Clinic [address] [place], [place] [id number] Metastatic malignant neoplasm to prostate (HCC)*; Encounter for medication monitoring; Encounter to discuss test results; History of radiation therapy; Encounter for monitoring Lupron therapy; Use of leuprolide acetate (Lupron); Encounter to discuss treatment options Allergies Active Allergy Reactions Criticality Noted Date [...] No 05/14/2023 Does the household have a [facility] income? (Household - for [...] Sign Reading Time Taken Comments Blood Pressure 151/73 12/31/2023 12:52 PM EDT Pulse 74 12/31/2023 12:52 PM EDT Temperature 36.7 C (98.1 F) 12/31/2023 12:52 PM E DT Respiratory Rate - - Oxygen Saturation 99% 12/31/2023 12:52 PM EDT Inhaled Oxygen Concentration - - Weight 93.7 kg (206 lb 8 oz) 12/31/2023 12:52 PM EDT Height - - Body Mass Index 28.01 12/03/2023 9:02 AM EDT documented in this encounter Progress Notes * Stan Parra MD - 12/31/2023 1:24 PM EDT Images from the original note were not included. TeleVIDEO Visit Patient location: CLINIC. I was not in a hospital or clinic location. After connecting through televideo, patient was verified with two unique identifiers. Patient (or authorized legal litigation claim representative) was then informed that this was a Telemedicine visit and being conducted confidentially over secure lines. My office door was closed. No one else was in the room with me. Patient acknowledged consent and understanding of privacy and security of the Telemedicine visit, and gave permission to have atelemedicine presenter stay in the room in order to assist with the history and to conduct the examas needed. I informed the patient that I have reviewed their record in [employer] and presented the opportunity for them to ask any questions regarding the visit today. The patient agreed to participate. Patient's Name: Piyush Aponte MR #: [id number] : 1950 Today's date: 12/31/2023 PCP: Kaz Rivas III, MD Referring provider: Bradley Uriarte Jr., MD Reason for referral: Prostate cancer (HCC) Hematology/Oncology diagnosis: Prostate AWILDA, with some cores showing intraductal histology, Very high risk group, Stage IIIC, [id number], Grade group 5: Derek score 4+5=9, Cores W/ Carcinoma(02/23), PSA = 20.83 (04/30/2018). Biochemical recurrence (12/2021) (PSA: 0.24--> 0.38--> 1.7-->2.03-->2.32--> 2.32-->3.14) mCSPC with oligo metastatic disease; Aortocaval LN +, T6 (Apr 2022) Other comorbidities: Mild chronic inactive gastritis (EGD in June 2023), on omperapze HTN GERD HLP Treatment rendered (from old [...] breakfast on 07/17/2022 because of poor tolerance. No chief complaint on file. Follow-up ECOG: Performance Status 1 = 80-90% Symptoms but nearly ambulatory Interval history: Patient presented today with his for follow-up, and receive his Eligard shot. Overall, he has been tolerating Zytiga with low-dose of 250 mg q.day with low- fat breakfast. He reported that his muscle pain, weakness is mild, and remained stable., he is tolerating Zytiga very well. Still complaining of chronic back and knee pain. He had PSMA PET scan in October History of present illness (at time of my initial evaluation on 02/20/2022 ): Piyush Aponte is a 71 year old male who presented to my office accompanied by his to establish care with oncologist for his prostatic adenocarcinoma. Patient [place] away from [facility]. Patient recently fell from a tree, and had compression fracture. He is currently on a brace, and neck collar. In 2018, patient complained of difficulty urination, and weak urinary stream. His PSA on March 07, 2018 was 20.83. 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, Stage IIIC, [id number], Grade group 5: Derek score 4+5=9, Cores W/ C arcinoma(02/23). He [...] performed by Umair Cook MD at ENDOSCOPY [facility] COLONOSCOPY, DIAGNOSTIC (RECTUM) 08/17/2021 benign polyp, diverticulosis, repeat 5 yrs / COLONOSCOPY FLEXIBLE PROXIMAL DIAGNOSTIC performed by Chavez Abbasi MD at ENDOSCOPY [facility] COLONOSCOPY, GI REFERRAL OP 03/02/2006 hyperplastic polyps--repeat 5 years COLORECTAL CANCER SCREEN;W/FLE 06/05/2001 70 cms wnl DENTAL SURGERY PROCEDURE NEC Dental Surgery Procedure EGD, FLEXIBLE, DIAGNOSTIC 12/22/2011 UPPER GI ENDOSCOPY DIAGNOSTIC performed by Berkley Rosen DO at ENDOSCOPY [facility] bile reflux and inlet patch EGD, FLEXIBLE, DIAGNOSTIC 06/18/2023 biopsies from esophagus show mild inflammation/ESOPHAGOGASTRODUODENOSCOPY (EGD), FLEXIBLE, TRANSORAL, DIAGNOSTIC performed by Ayah Meza MD at ENDOSCOPY [facility] INFORMATION 1982 Herniated disc repair KNEE ARTHROSCOPY/MENISCUS REPAIR Left 2014 KNEE ARTHROSCOPY/SURGERY Left 09/23/2020 shave menniscus chondroplasty REMOVE GALLBLADDER 11/17/2002 Cholecystectomy - open [facility] Dr. Gold REMOVE LUMBAR SPINE LAMINA, 3+ SEGS 1981 Lumbar Disk Excision REMOVE TONSILS & ADENOIDS, UNDER 12 Tonsillectomy/Adenoids,<12 Y/O SHOULDER ARTHROSCOPY/DEBRIDEMENT Left 2017 STRESS TREADMILL 2000 wnl TRANSPERINEAL BX OF PROSTATE, STEREOTACTIC N/A 04/30/2018 TRANSPERINEAL BX OF PROSTATE, STEREOTACTIC performed by Vy Tyler MD at OR [facility] UPPER ENDOSCOPY GI REFERRAL OP 03/02/2006 acid reflux--no Rodas's esophagus or H.Pylori Social History Tobacco Use Smoking status: Never Passive exposure: Never Smokeless tobacco: Never Vaping Use Vaping status: Never Used Substance Use Topics Alcohol use: No Drug use: No Family History Problem Relation Name Age of Onset Diabetes Mother Prasanna Aponte @86 Other (Diverticulitis) Mother Prasanna Aponte colectomy Heart Disorder Father Jas Aponte CHF @83 Glaucoma Father Jas Aponte Prostate cancer Father Jas Aponte 78 Arthritis Father Jas Aponte Cancer Father Jas Aponte No Past Hx Sister Kym (covid) Diabetes Grandfather (Maternal) Maikol White @78 Cancer Uncle (Paternal) metastatic, unknown type [...] as needed for Nausea. 50 Tablet 0 Calcium 600+D Plus Minerals [...] AT BEDTIME, DISSOLVE INWATER 120 Tablet 5 Apixaban 5 MG Oral [...] months for 4 doses. 4 Kit 0 No current facility-administered medications for this visit. Facility-Administered Medications Ordered in Other Visits Medication Dose Route Frequency Provider Last Rate Last Admin Leuprolide Acetate (3 Month) (Eligard) inj 22.5 mg 22.5 mg Subcutaneous Once Stan Parra MD Review of patient's allergies indicates: Allergen Reactions Levaquin [Levofloxacin] Muscle pain Oxycodone Nausea/vomiting Physical exam: Vitals 12/04/2023 09:30 12/05/2023 13:44 12/14/2023 12/25/2023 14:09 12/27/2023 14:16 12/31/2023 Vitals BP 151/73 Pulse 74 Temp 36.7 C (98.1 F) SpO2 99 % Weight 206 lb 8 oz Notes Notes Progress Notes Signed Caro Silva OSA Progress Notes Signed Renetta Pagan [facility] Telephone Encounter Signed Zenia Javier MD Progress Notes Signed Ginette Carrero, maintenance machinist Progress Notes Signed Aniyah Diego maintenance machinist Progress Notes Incomplete Stan Parra MD Details More values are hidden. Newest values shown. Go to activity for more data. General: alert, healthy and no distress Head: Normocephalic, No masses, lesions, tenderness or abnormalities Rest of examination can not be performed because of video visit Labs: Results for orders placed or performed in visit on 12/31/23 COMPREHENSIVE METABOLIC PANEL Result Value Ref Range BUN 15 6 - 20 mg/dL CREATININE 0.8 0.6 - 1.2 mg/dL EGFR >90 >=60 mL/min SODIUM 141 135 - 146 mmol/L POTASSIUM 3.8 3.5 - 5.1 mmol/L CHLORIDE 106 98 - 107 mmol/L CO2 26 22 - 32 mmol/L ANION GAP 9 7 - 15 mmol/L GLUCOSE 131 (H) 70 - 120 mg/dL Albumin 4.1 3.8 - 5.0 g/dL AST 29 10 - 50 U/L Alkaline Phosphatase 72 35 - 130 U/L Bilirubin, Total 0.5 <=1.2 mg/dL CALCIUM 9.2 8.4 - 10.2 mg/dL Protein 6.4 6.0 - 8.3 g/dL ALT 16 10 - 50 U/L CBC Result Value Ref Range WBC 4.17 4.00 - 10.80 K/uL RBC 4.14 4.50 - 5.25 M/uL HGB 12.7 (L) 14.0 - 16.8 g/dL HCT 37.7 (L) 40.0 - 48.4 % MCV 91.1 82.0 - 99.5 fL MCH 30.7 27.0 - 34.0 pg MCHC 33.7 32.0 - 36.0 g/dL RDW 13.3 11.5 - 15.5 % PLT 147 140 - 400 K/uL MPV 10.4 6.6 - 11.1 fL nRBCs 0 <=0 /100 WBCs DIFFERENTIAL, AUTOMATED Result Value Ref Range WBC 4.17 4.00 - 10.80 K/uL Neutrophils % 75.6 (H) 40.0 - 75.0 % Lymphocytes % 15.1 (L) 18.0 - 42.0 % Monocytes % 7.4 1.0 - 11.0 % Eosinophils % 1.2 0.0 - 6.0 % Basophils % 0.5 0.0 - 2.0 % Immature Granulocytes % 0.2 0.0 - 2.0 % Absolute Neutrophils 3.15 1.80 - 7.70 K/uL Absolute Lymphocytes 0.63 (L) 1.00 - 4.80 K/ul Absolute Monocytes 0.31 0.00 - 1.10 K/uL Absolute Eosinophils 0.05 0.00 - 0.70 K/uL Absolute Basophils 0.02 0.00 - 0.20 K/uL Absolute Immature Granulocytes 0.01 0.00 - 0.20 K/uL *Note: Due to a large number of results and/or encounters for the requested time period, some results have not been displayed. A complete set of results can be found in Results Review. Imaging: PET CT SKULL BASE TO MID THIGH PSMA Result Date: 11/06/2023 IMPRESSION: Positive response to therapy: 1. Complete resolution of piflufolastat-avid aortocaval lymphadenopathy. 2. Complete resolution of piflufolastat-avidity within the T6 vertebral body. Pathology Review: EGD on 06/18/23 mpression: - Normal esophagus. Biopsied. - Z-line regular, 40 cm from the incisors. - Normal stomach. Biopsied. - Normal duodenal bulb and second portion of the duodenum. Recommendation: - Await pathology results. - Resume Eliquis as normal taken. - Continue Prilosec daily. A. Stomach, biopsies: Mild chronic inactive gastritis No organisms are seen on an H. pylori stain No specialized intestinal metaplasia or dysplasia is seen B. Gastroesophageal junction, biopsies: Squamo-columnar type mucosa with mild non-specific chronic inflammation No specialized intestinal metaplasia or dysplasia is seen Impression: Piyush Aponte is a 71 year old male with Prostate adenocarcinoma, with some cores showing intraductal histology, Very high risk group, StageIIIC, [id number], Grade group 5: Derek score 4+5=9, Cores [...] in 5 F- Dr. Obrien (06/15/2022- 06/26/2022) Plan: BP 151/73 (BP Site: Right Arm, BP Position: Sitting, BP Cuff Size: Regular) | Pulse 74 | Temp 36.7 C (98.1 F) (Tympanic) | Wt 93.7 kg (206 lb 8 oz) | SpO2 99% | BMI 28.01 kg/m | BSA 2.18 m Blood pressure is elevated today. He reported that his blood pressure has been normal, and was recently checked by his PCP. Also reported that he has been eating more salt lately, and he will cut down on salt intake. We discussed that Zytiga can cause hypertension, and if his blood pressure remainselevated, he may need antihypertensive. PSA has been undetectable since September 2023. PSA from today is still pending. PSMA PET on 11/06/23 showed Complete resolution of piflufolastat-avid aortocaval lymphadenopathy, and complete resolution of piflufolastat-avidity within the T6 vertebral body. Overall, he is tolerating low-dose Zytiga well. Still has mild, but very stable muscle weakness. Recommend continue same dose of Zytiga 250 mg q.day with low- fat breakfast. Continue Eligard shot q.3 months. He is due today. Continue calcium plus vitamin-D(he is taking Digilab Club brand with calcium/vitD of 1200/1600 IU) EGD report reviewed, showed mild chronic gastritis, he is on daily omeprazole. CBC, CMP reviewed essentially normal. PSA from today is still pending. PSA continue to drop/platued in May 2023. Genetic evaluation; No pathogenic variants identified in the 88 genes analyzed associated with hereditary cancer including hereditary prostate cancer. I appreciate MTM input. RESPONSE ASSESSMENT DURING TREATMENT: For males with [...] made based on a rising PSA alone. Patient, and had questions, All questions were answered to the the level of their satisfaction No orders of the defined types were placed in this encounter. Check-out note: OK for Eilgard Shot today, and q.3 months CBC with diff, CMP Q monthly, and follow with MTM Return to clinic with Fidel in 3 months with CBC/diff, CMP, PSA This chart was completed in part utilizing [employer] Speech Voice Recognition Software. Grammatical errors, random word insertions, pronoun errors, and incomplete sentences are an occasional consequence of this system due to software limitations, ambient noise, and hardware issues. Any formal questions or concerns about the content, text, or information contained within the body of this dictation should be directly addressed to the provider for clarification. I spent a total time of 40 minutes on the date of service in preparation, delivery, and documentation of the care provided, excluding any time spent in the performance of separately billed services. documented in this encounter Nursing Notes * Roberto Bauman CMA - 12/31/2023 12:56 PM EDT No chief complaint on file. BP 151/73 (BP Site: Right Arm, BP Position: Sitting, BP Cuff Size: Regular) | Pulse 74 | Temp 36.7 C (98.1 F) (Tympanic) | Wt 93.7 kg (206 lb 8 oz) | SpO2 99% | BMI 28.01 kg/m | BSA 2.18 m Patient was instructed to not get [...] 9:30 AM EST Pharmacy Pharmacy Hematology Oncology [facility] [address] [place] [address] [facility], [facility] Hem/Onc [address] [place] [address] 03/28/2024 1:00 PM EST Laboratory Laboratory, [address] [id number] [facility], Lab [address] [place] [address] 03/28/2024 2:00 PM EST Telemedicine Hematology/Oncology, [address] [address] Stan Parra MD [address] [place] [address] Cart, Telemed [facility] [address] [facility] [address] 03/28/2024 2:30 PM EST Immunization/Injection Hematology/Oncology Treatment, [facility] [address] [facility] [place] [address] [facility], Chair [facility] [address] [facility] [address] 06/04/2024 8:00 AM EDT Office Visit Family Practice [facility] [address] [facility] [place] [address] Kaz Rivas III, MD [address] [place] [address] 07/15/2024 10:15 AM EDT Office Visit Urology [address] [place] [address] [facility] [address] [place] [address] Bradley Uriarte Jr., MD [address] [place] [address] 11/13/2024 1:00 PM EDT Office Visit Radiation Oncology, [facility] [address] [place] [address] IovolDragan rawls MD [address] [place] [phone] Scheduled Procedures Name Priority Associated Diagnoses Date/Ti [...] Primary Secondary malignant neoplasm of genital organs Encounter for medication monitoring Encounter for therapeutic drug monitoring Encounter to discuss test results Other specified counseling History of radiation therapy Personal history of irradiation, presenting hazards to health Encounter for monitoring Lupron therapy Encounter for therapeutic drug monitoring Use of leuprolide acetate (Lupron) Use of other agents affecting estrogen receptors and estrogen levels Encounter to discuss treatment options Other specified counseling documented in this encounter Advance Directives * [...] the patient have Health Care Power of Coarse Wire Drawer? Yes, not currently available Care Teams Racehorse Trainer Relationship Specialty Start Date End Date Kaz Rivas III, MD [address] [facility] [place] [address] PCP - General 10/25/1995 documented as of this encounter"
--- OUTSIDE RECORDS SUMMARY | 2024-01-26 10:41 | External Medical Summary ---
Author Name Unknown Address Unknown Organization K09:[facility]ORY [place] [address] Laboratory Report Ordering Provider Test Date Status ALBERTO KUMAR 01/16/2024 12:39:31 Final Observation Date Value Abnormality Reference (Units ) Status WBC, Total 01/16/2024 12:39:31 5.30 4.00-10.8 0 (K/uL) Final RBC 01/16/2024 12:39:31 4.39 4.50-5.25 (M/uL) Final Hemoglobin 01/16/2024 12:39:31 13.4 Below low normal 14 .0-16.8 (g/dL) Final HCT 01/16/2024 12:39:31 40.1 40.0-48.4 (%) Final MCV 01/16/2024 12:39:31 91.3 82.0-99.5 (fL) Final MCH 01/16/2024 12:39:31 30.5 27.0-34.0 (pg) Final MCHC 01/16/2024 12:39:31 33.4 32.0-36.0 (g/dL) Final RDW 01/16/2024 12:39:31 13.6 11.5-15.5 (%) Final Platelets 01/16/2024 12:39:31 157 140-400 (K /uL) Final MPV 01/16/2024 12:39:31 10.2 6.6-11.1 ( fL) Final Performing Location [facility] [place] [address]
--- OUTSIDE RECORDS SUMMARY | 2024-01-26 10:41 | External Medical Summary ---
Author Name Unknown Address Unknown Organization K01:LABORATORY [facility] [place] - [address] [place] [address] Laboratory Report Ordering Provider Test Date Status ALBERTO KUMAR 01/16/2024 12:39:31 Final Observation Date Value Abnormality Reference (Units ) Status Borrelia burgdorferi IgG and IgM [Interpretation] in Serum by Immunoassay 01/16/2024 12:39:31 Negative Negative Final Performing Location LABORATORY [facility] [place] - [address] [place] [address]
--- OUTSIDE RECORDS SUMMARY | 2024-01-26 10:41 | External Medical Summary | Summary of Care ---
Author Name Unknown Organization [facility] Address [address] [place] [address] Phone [phone] Care Team Providers Care Creping Machine Operator Helper Name Role Phone Evelyn FRANZ MD, Kaz Canela Primary Care Provider [phone] Reason for Visit * Episode Based Medications (Routine) - Authorized Specialty Diagnoses / Procedures Referred By Aj pendleton Referred To Contact Diagnoses Malignant neoplasm of prostate (HCC) Procedures Abiraterone Acetate 250MG tablets Stan Parra MD [address] [place] [address] Hem/Onc [facility] [address] [place] [address] Referral ID Status Reason Start Date Expiration Date V isits Requested Visits Authorized [id number] Authorized 05/22/2022 05/21/2025 [id number] Encounter Details Date Type Department Care Team (Late st Contact Info) Description 12/31/2023 1:00 PM EDT Telemed[facility] [address] [place] [address] Stan Parra MD [address] [place] [address] Cart, Telemed [facility] Hem Onc Clinic [address] [place], [place] [id number] Metastatic malignant neoplasm to prostate (HCC)*; Encounter for medication monitoring; Encounter to discuss test results; History of radiation therapy; Encounter for monitoring Lupron therapy; Use of leuprolide acetate (Lupron); Encounter to discuss treatment options Allergies Active Allergy Reactions Criticality Noted Date Comments Levofloxacin Muscle pain 02/07/2018 Oxycodone Nausea/vomiting 02/07/2018 documented as of this encounter (statuses as of 01/02/2024) Medications Medication Sig Dispensed Refills Start Date [...] as of this encounter (statuses as of 01/02/2024) Active Problems Problem Noted Date Diagnosed Date [...] as of this encounter (statuses as of 01/02/2024) Resolved Problems Problem Noted Date Diagnosed Date Resolved Date Supraclavicular lymphadenopathy 02/11/2016 01/02/2018 Screening for prostate cancer 04/15/2003 05/20/2008 Overview: Resolved per Screening Diagnosis Protocol #6 Acute cholecystitis 11/25/2002 05/07/19 19 Diaphragmatic hernia 019 documented as of this encounter (statuses as of 01/02/2024) Immunizations Name Administration Dates Next Due COVID-19 [...] No 05/14/2023 Does the household have a [facility] source of income? (Household - for ages [...] in this encounter Progress Notes * Stan Prara MD - 12/31/2023 1:24 PM EDT Images from the original note were not included. TeleVIDEO Visit Patient location: CLINIC. I was not in a hospital or clinic location. After connecting through televideo, patient was verified with two unique identifiers. Patient (or authorized legal telemarketing sales representative) was then informed that this was [...] that I have reviewed their record in [employer] and presented the opportunity for them to ask any questions regarding the visit today. The patient agreed to participate. Patient's Name: Piyush Aponte MR #: [id number] : 1950 Today's date: 12/31/2023 PCP: Kaz Rivas III, MD Referring provider: Bradley Uriarte Jr., MD Reason for referral: Prostate cancer (HCC) Hematology/Oncology diagnosis: Prostate AWILDA, with some cores showing intraductal histology, Very high risk group, Stage IIIC, [id number], Grade group 5: Derek score 4+5=9, Cores [...] Patient [address] [facility]. Patient recently fell from a tree, and had compression fracture. He is currently on a brace, and neck collar. In 2018, patient complained of difficulty urination, and weak urinary stream. His PSA on March 07, 2018 was 20.83. 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, Stage IIIC, [id number], Grade group 5: Derek score 4+5=9, Cores [...] performed by Umair Cook MD at [facility] COLONOSCOPY, DIAGNOSTIC (RECTUM) 08/17/2021 benign polyp, diverticulosis, repeat 5 yrs / COLONOSCOPY FLEXIBLE PROXIMAL DIAGNOSTIC performed by Chavez Abbasi MD at [facility] COLONOSCOPY, GI REFERRAL OP 03/02/2006 hyperplastic polyps--repeat 5 years COLORECTAL CANCER SCREEN;W/FLE 06/05/2001 70 cms wnl DENTAL SURGERY PROCEDURE NEC Dental Surgery Procedure EGD, FLEXIBLE, DIAGNOSTIC 12/22/2011 UPPER GI ENDOSCOPY DIAGNOSTIC performed by Berkley Rosen DO at [facility] bile reflux and inlet patch EGD, FLEXIBLE, DIAGNOSTIC 06/18/2023 biopsies from esophagus show mild inflammation/ESOPHAGOGASTRODUODENOSCOPY (EGD), FLEXIBLE, TRANSORAL, DIAGNOSTIC performed by Ayah Meza MD at [facility] INFORMATION 1982 Herniated disc repair KNEE ARTHROSCOPY/MENISCUS REPAIR Left 2014 KNEE ARTHROSCOPY/SURGERY Left 09/23/2020 shave menniscus chondroplasty REMOVE GALLBLADDER 11/17/2002 Cholecystectomy - open [facility] Dr. Gold REMOVE LUMBAR SPINE LAMINA, 3+ SEGS 1981 Lumbar Disk Excision REMOVE TONSILS & ADENOIDS, UNDER 12 Tonsillectomy/Adenoids,<12 Y/O SHOULDER ARTHROSCOPY/DEBRIDEMENT Left 2017 STRESS TREADMILL 2000 wnl TRANSPERINEAL BX OF PROSTATE, STEREOTACTIC N/A 04/30/2018 TRANSPERINEAL BX OF PROSTATE, STEREOTACTIC performed by Vy Tyler MD at OR [facility] UPPER ENDOSCOPY GI REFERRAL OP 03/02/2006 acid [...] Silva OSA Progress Notes Signed Renetta Pagan [facility] Telephone Encounter Signed Zenia Javier MD Progress Notes Signed Ginette Carrero, office aide Progress Notes Signed Aniyah Diego office aide Progress Notes Incomplete Stan Parra MD Details [...] intraductal histology, Very high risk group, StageIIIC, [id number], Grade group 5: Derek score 4+5=9, Cores [...] today. Continue calcium plus vitamin-D(he is taking [employer] brand with calcium/vitD of 1200/1600 IU) [...] This chart was completed in part utilizing [employer] Speech Voice Recognition Software. Grammatical errors, random [...] comprehension of instructions. documented in this encounter Miscellaneous Notes * Addendum Note - Jaqueline Rocha LPN - 01/02/2024 3:11 PM EDTAddended by: JAQUELINE ROCHA on: 01/02/2024 03:11 PM Modules accepted: Orders documented in this encounter Plan of Treatment Upcoming Encounters Date Type Department Care Team (Late st Contact Info) Description 02/01/2024 9:30 AM EST Pharmacy Pharmacy Hematology Oncology [facility] [address] [place] [address] [facility] Hem/Onc [address] [place] [address] 03/28/2024 1:00 PM EST Laboratory Laboratory, [address] [address] [facility], Lab [address] [place] [address] 03/28/2024 2:00 PM EST Telemedicine [facility] [address] [place] [address] Stan Parra MD [address] [place] [address] Cart, Telemed [facility] Hem Onc Clinic [address] [place] [address] 03/28/2024 2:30 PM EST Immunization/Injection Hematology/Oncology Treatment, [facility] [address] [place] [address] [facility], Chair Hem Onc [address] [place] [address] 06/04/2024 8:00 AM EDT Office Visit [facility] [address] [place] [address] Kaz Rivas III, MD [address] [place] [address] 07/15/2024 10:15 AM EDT Office Visit Urology [facility] [address] [address] [place] [address] Bradley Uriarte Jr., MD [address] [facility] [place] [address] 11/13/2024 1:00 PM EDT Office Visit Radiation [facility] [address] [place], [place] [phone] IovoliDragan MD [address] [place] [address] Scheduled Orders Name Type Priority Associated Diagnoses Orde r Schedule PSA Lab STAT Metastatic malignant neoplasm to prostate (HCC) Every Month for 12 Occurrences starting 01/02/2024 until 01/01/2025 Scheduled Procedures Name Priority Associated Diagnoses Date/Ti [...] the patient have Health Care Power of Laborer Syrup Machine? Yes, not currently available Care Teams Creping Machine Operator Helper Relationship Specialty Start Date End Date Kaz Rivas III, MD [address] [place] [address] PCP - General 10/25/1995 documented as of this encounter"
--- OUTSIDE RECORDS SUMMARY | 2024-01-26 10:41 | External Medical Summary | Summary of Care ---
Author Name Unknown Organization [facility] Address [address] [place] [address] Phone [phone] Care Team Providers Care Healthcare Interpreter Name Role Phone Evelyn FRANZ MD, Kaz Canela Primary Care Provider [phone] Reason for Visit * Reason Comments Patient Assistance Program Encounter Details Date Type Department Care Team (Late st Contact Info) Description 06/07/2022 Documentation Hematology Oncology [facility] [address] [place] [address] Stan Parra MD [address] [place] [address] Allergies Active Allergy Reactions Criticality Noted Date Comments Levofloxacin Muscle pain 02/07/2018 Oxycodone Nausea/vomiting 02/07/2018 documented as of this encounter (statuses as of 12/27/2023) Medications Medication Sig Dispensed Refills Start Date [...] as of this encounter (statuses as of 12/27/2023) Active Problems Problem Noted Date Diagnosed Date [...] as of this encounter (statuses as of 12/27/2023) Resolved Problems Problem Noted Date Diagnosed Date Resolved Date Supraclavicular lymphadenopathy 02/11/2016 01/02/2018 Screening for prostate cancer 04/15/2003 05/20/2008 Overview: Resolved per Screening Diagnosis Protocol #6 Acute cholecystitis 11/25/2002 05/07/19 19 Diaphragmatic hernia 019 documented as of this encounter (statuses as of 12/27/2023) Immunizations Name Administration Dates Next Due COVID-19 [...] No 05/14/2023 Does the household have a [facility] source of income? (Household - for [...] Progress Notes * Jordan Andrade OSA - 12/14/2023 8:54 AM EDT POM Reason: Insurance mandated Insurance Info: A[employer]na Medicare Advantage Auth Expirin06/05/2025 Pharmacy/Company: [facility] Phone number: IM gyroscopic engineering technician [place] Location: [facility] Estimated Delivery Date: [facility] - delivers 12/27/2023 [facility] Appointment Date: 12/31/2023 Ordered Date: 12/14/2023 Delivery Address: [facility] Attn: 6th floor IIP POM [address] [place] [address] RX: Eligard Dose: 22.5mg 3 mo Quantity: [...] OSA - 09/21/2023 2:42 PM EDT Krysta Lr, dolphin researcher 09/21/2023 14:29 Medication received 09/21/23 Estimated Delivery Date: [facility] - order med 12/15/2023 * Jordan Andrade OSA - 09/14/2023 7:42 AM EDT POM Reason: Insurance mandated Insurance Info: A[employer]na Medicare Advantage Auth Expirin06/05/2025 Pharmacy/Company: [facility] Phone number: IM gyroscopic engineering technician [place] Location: [facility] Estimated Delivery Date: [facility] - 09/21/2023 Appointment Date: 09/28/2023 Ordered Date: 09/14/2023 Delivery Address: Attn: 6th floor IIP POM [address] [place] [address] RX: Eligard Dose: 22.5mg 3 mo Quantity: [...] - 06/14/2023 3:07 PM EDT Krysta Lr dolphin researcher 06/14/2023 12:40 Received 1 Eligard 22.5 Kit 06/14/23 Estimated Delivery Date: [facility] - order med 09/14/2023 * Jordan Andrade OSA - 06/05/2023 9:19 AM EDT POM Reason: Insurance mandated Insurance Info: [employer]na Medicare Advantage Auth Expirin06/05/2025 Pharmacy/Company: [facility] Phone number: IM gyroscopic engineering technician [place] Location: [facility] Estimated Delivery Date: [facility] - 06/14/2023 Appointment Date: 06/22/2023 Ordered Date: 06/05/2023 Delivery Address: Attn: [address]th [address] [place] [address] RX: Eligard Dose: 22.5mg 3 mo Quantity: [...] C61 Prostate Cancer * Mary Jo Gar dolphin researcher - 03/21/2023 3:56 PM EST 03/21/2023 - Received medication. Defer to 05/16/2023 to order refill. Estimated Delivery Date: received 03/21/2023 - [facility] Appointment Date: 03/16/2023 Ordered Date: 03/02/2023 Delivery Address: Attn: 6th floor IIP POM [address] [place] [address] RX: Eligard Dose: 22.5mg 3 mo Quantity: 1 Manufactured Supplied: No Refills remaining: Injection Number for this order: Next Refill: 05/16/2023 Upcoming Appt: 05/30/2023 * Jordan Andrade OSA - 03/14/2023 2:29 PM EST 03/15/2023 - "Caterina, our buying team said they are waiting to hear from a clearance representative from [facility] regarding the ordering issue but [...] 03/14/2023 - Per Vida Kelly at [facility] "Piyush Rubiashwini Tracyd did not come in today [facility] Vida Mcwilliams is working with [...] [employer]na Medicare Advantage Auth Expirin06/05/2025 Pharmacy/Company: [facility] Phone number: IM gyroscopic engineering technician [place] Location: [facility] Estimated Delivery Date: 03/21/2023 - [facility] Appointment Date: 03/16/2023 Ordered Date: 03/02/2023 Delivery Address: Attn: 6th floor IIP POM [address] [place] [address] RX: Eligard Dose: 22.5mg 3 mo Quantity: [...] defer to 03/02/2023 to order Eligard from P * Galina Barnett OSA - 12/06/2022 2:21 PM EDT Krysta Lr dolphin researcher 12/06/2022 13:58 | Received 1 kit of Eligard 12/06/2022 Estimated Delivery Date: Received 12/06/2022-P [facility] 12/06/2022, 2:21 PM * Mary Jo Gar dolphin researcher - 11/27/2022 9:02 AM EDT 11/27/2022 - IM'd [facility] to fill. Medication ordered. Defer to 12/06/2022 for delivery. POM Reason: Insurance mandated Insurance Info: Aetna Medicare Advantage Auth Expirin06/05/2025 Pharmacy/Company: [facility] Phone number: IM gyroscopic engineering technician [place] Location: [facility] Estimated Delivery Date: 12/06/2022 - [facility] Appointment Date: 12/11/2022 Ordered Date: 11/27/2022 Delivery Address: Attn: 6th floor IIP POM [address] [place] [address] RX: Eligard Dose: 22.5mg 3 mo Quantity: [...] DX: C61 Prostate Cancer ABEL C[facility] 11/27/2022, 1:19 PM * Mary Jo Gar, dolphin researcher - 11/20/2022 12:01 PM EDT 11/20/2022 - Defer to 01/27/2023 to order refill. ABEL C[facility] 11/20/2022, 12:02 PM * Mary Jo Gar dolphin researcher - 08/31/2022 10:15 AM EDT 09/08/2022 - Received medication per pharmacy staff. Defer 11/20/2022 for refill. 08/31/2022 - IM'd [facility] for refill. Defer to 09/07/2022 for delivery. POM Reason: Insurance mandated Insurance Info: [employer]na Medicare Advantage Auth Expirin06/05/2025 Pharmacy/Company: [facility] Phone number: IM gyroscopic engineering technician [place] Location:[facility] Estimated Delivery Date: received 09/07/2022 - [facility] Appointment Date: 09/11/2022 Ordered Date:08/31/2022 Delivery Address:Attn: 6th floor IIP POM [address] [place] [address] RX:Eligard Dose:22.5mg 3 mo Quantity:1 Manufactured Supplied:No [...] 4 DX:C61 Prostate Cancer [facility]EL [facility] 08/31/2022, 10:18 AM * Liza Hoff OSA - 06/15/2022 2:56 PM EDT Estimated Delivery Date: Received 06/15/2022 - [facility] * Mary Jo Gar dolphin researcher - 06/14/2022 11:44 AM EDT 06/14/2022 - IM'd [facility] to fill script. Defer to 06/15/2022 for delivery. POM Reason: Insurance mandated Insurance Info: A[employer]na Medicare Advantage Auth Expirin06/05/2025 Pharmacy/Company: [facility] Phone number: IM gyroscopic engineering technician [place] Location: [facility] Estimated Delivery Date: 06/15/2022 - [facility] Appointment Date: 06/16/2022 Ordered Date:06/14/2022 Delivery Address: Attn: 6th floor IIP POM [address] [place] [address] RX: Eligard Dose: 22.5mg 3 mo Quantity: [...] DX: C61 Prostate Cancer ABEL C[facility] 06/14/2022, 11:50 AM * Galina Barnett OSA - 06/07/2022 9:47 AM EDT 06/07/2022- Reached out to Alba Iqbal for test claim POM Reason: Insurance Info: Auth Expiring: Pharmacy/Company: Phone number: [place] Location: [facility] Estimated Delivery Date: TBD Appointment Date: Ordered Date: Delivery Address: Attn: 6th floor IIP POM [address] [place] [address] RX: Eligard Dose: 22.5mg 3 mo Quantity: [...] DX: C61 Prostate Cancer [facility] 06/07/2022, 10:14 AM documented in this encounter Plan of Treatment Upcoming Encounters Date Type Department Care Team (Late st Contact Info) Description 12/31/2023 12:00 PM EDT Laboratory Laboratory, [facility] [address] [place] [address] [facility], Lab [address] [facility] [place] [address] 12/31/2023 1:00 PM EDT Telemedicine Hematology/Oncology, [facility] [address] [place] [address] Stan Parra MD [address] [place] [address] Cart, Telemed [facility] Hem Onc Clinic [address] [place] [address] 12/31/2023 1:30 PM EDT Immunization/Injection Hematology/Oncology Treatment, [facility] [address] [place] [address] [facility], Chair8 Hem Onc [address] [place] [address] 02/01/2024 9:30 AM [facility] Pharmacy Pharmacy Hematology Oncology [facility] [address] [place] [address] [facility] Hem/Onc [address] [place] [address] 06/04/2024 8:00 AM EDT Office Visit [facility] [address] [place] [address] Kaz Riavs III, MD [address] [place] [address] 07/15/2024 10:15 AM EDT Office Visit Urology [facility] [place] [address] [address] [place] [address] Bradley Uriarte Jr., MD [address] [place] [address] 11/13/2024 1:00 PM EDT Office Visit Radiation Oncology, [facility] [address] [place] [address] IovoliDragan MD [address] [place] [address] Scheduled Procedures Name Priority Associated [...] the patient have Health Care Power of Ordained Minister? Yes, not currently available Care Teams Healthcare Interpreter Relationship Specialty Start Date End Date Kaz Rivas III, MD [address] [place] [address] PCP - General 10/25/1995 documented as of this encounter
--- OUTSIDE RECORDS SUMMARY | 2024-01-26 10:41 | External Medical Summary | Summary of Care ---
Author Name Unknown Organization [facility] Address [address] [place] [address] Phone [phone] Care Team Providers Care Salesforce Specialist Name Role Phone Evelyn FRANZ MD, Kaz Canela Primary Care Provider [phone] Reason for Visit * Reason Comments Pain Right ankle pain x 3 daysHx of gout Encounter Details Date Type Department Care Team (Latest Contact Info) Description 01/16/2024 9:50 AM EST Convenient Care Visit [facility] [address] [place] [address] Jerald Aaron PA-C 174 [facility] [place] [id number] Acute right ankle pain* Allergies Active Allergy [...] Sign Reading Time Taken Comments Blood Pressure 144/82 01/16/2024 10:55 AM EST Pulse 69 01/16/2024 10:55 AM EST Temperature 35.9 C (96.6 F) 01/16/2024 10:[address] Respiratory Rate 16 01/16/2024 10:55 AM EST Oxygen Saturation 96% 01/16/2024 10:55 AM EST Inhaled Oxygen Concentration - - Weight 91.6 kg (202 lb) 01/16/2024 10:55 AM EST Height 182.9 cm (6') 01/16/2024 10:55 AM EST Body Mass Index 27.4 01/16/2024 10:55 AM EST documented in this encounter Progress Notes * Jerald Aaron PA-C - 01/16/2024 11:43 AM EST Images from the original note were not included. Nursing Notes: Teodora Rainey LPN 01/16/24 1100 Signed Piyush Aponte is a 73 year old male who presents to walk-in clinic today complaining of Chief Complaint Patient presents with Pain Right ankle pain x 3 days Hx of gout Tried - tylenol/epsom salt soaks Effectiveness - little relief Patient is accompanied by spouse for today's visit. Subjective Piyush Aponte is a 73 year old male that presents for Pain (Right ankle pain x 3 days/Hx of gout ) Ankle Pain The incident occurred 12 to 24 hours ago. The incident occurred at home. There was no injury mechanism. Pain location: R ankle. The pain is at a severity of 8/10 (8/10 yesterday, 2/10 now). The pain is moderate. The pain has been Improving since onset. Associated symptoms include an inability to bear weight. Pertinent negatives include no loss of motion, loss of sensation, muscle weakness, numbness or tingling. Associated symptoms comments: Red, swelling. . The symptoms are aggravated by movement, palpation and weight bearing. He has tried acetaminophen for the symptoms. The treatment provided significant relief. Has h/o gout. Is in tompkins a lot Denies f/s/ch, sob, wheezing, cp, palp, lh dizziness. Objective BP 144/82 | Pulse 69 | Temp 35.9 C (96.6 F) (Tympanic) | Resp 16 | Ht 1.829 m (6') | Wt 91.6 kg(202 lb) | SpO2 96% | BMI 27.40 kg/m | BSA 2.16 m Body mass index is 27.4 kg/m. BP Readings from Last 3 Encounters: 01/16/24 144/82 12/31/23 151/73 12/03/23 130/86 Wt Readings from Last 3 Encounters: 01/16/24 91.6 kg (202 lb) 12/31/23 93.7 kg (206 lb 8 oz) 12/03/23 92.2 kg (203 lb 3.2 oz) Physical Exam Vitals and nursing note reviewed. Constitutional: General: He is not in acute distress. Appearance: Normal appearance. He is not ill-appearing, toxic-appearing or diaphoretic. HENT: Head: Normocephalic and atraumatic. Right Ear: External ear normal. Left Ear: External ear normal. Nose: Nose normal. No congestion or rhinorrhea. Mouth/Throat: Mouth: Mucous membranes are moist. Pharynx: Oropharynx is clear. No oropharyngeal exudate or posterior oropharyngeal erythema. Eyes: General: No scleral icterus. Extraocular Movements: Extraocular movements intact. Conjunctiva/sclera: Conjunctivae normal. Pupils: Pupils are equal, round, and reactive to light. Neck: Vascular: No carotid bruit. Cardiovascular: Rate and Rhythm: Normal rate and regular rhythm. Heart sounds: No murmur heard. No friction rub. No gallop. Pulmonary: Effort: Pulmonary effort is normal. No respiratory distress. Breath sounds: No wheezing, rhonchi or rales. Chest: Chest wall: No tenderness. Abdominal: General: Abdomen is flat. Bowel sounds are normal. There is no distension. Palpations: Abdomen is soft. Tenderness: There is no abdominal tenderness. There is no guarding or rebound. Musculoskeletal: General: No swelling or tenderness. Normal range of motion. Cervical back: Normal range of motion and neck supple. No rigidity. No muscular tenderness. Right lower leg: No edema. Left lower leg: No edema. Feet: Lymphadenopathy: Cervical: No cervical adenopathy. Skin: General: Skin is warm and dry. Capillary Refill: Capillary refill takes less than 2 seconds. Neurological: General: No focal deficit present. Mental Status: He is alert and oriented to person, place, and time. Psychiatric: Mood and Affect: Mood normal. Behavior: Behavior normal. Thought Content: Thought content normal. Judgment: Judgment normal. Assessment and plan 1. Acute right ankle pain Will cover for gout Labs and xray to r/o bony deformities, lyme, infection. If no improvement, or if worsening, will add abx to cover for cellulitis - URIC ACID; Future - LYME DISEASE ANTIBODY SCREEN WITH REFLEX TO CONFIRMATION; Future - CBC WITH WBC DIFFERENTIAL; Future - COMPREHENSIVE METABOLIC PANEL; Future - XR ANKLE 3 OR MORE VIEWS; Future - methylPREDNISolone 4 MG Oral Tablet Therapy Pack (Medrol Dosepack); follow package directions Dispense: 21 Tablet; Refill: 0 Follow up With PCP in 3-5 days. ER if acutely worsening The above was discussed and understanding was expressed. Jerald Aaron PA-C documented in this encounter Nursing Notes * Teodora Rainey LPN - 01/16/2024 10:59 AM EST Piyush Aponte is a 73 year old male who presents to walk-in clinic today complaining of Chief Complaint Patient presents with Pain Right ankle pain x 3 days Hx of gout Tried - tylenol/epsom salt soaks Effectiveness - little relief Patient is accompanied by spouse for today's visit. documented in this encounter Plan of Treatment Upcoming Encounters Date Type Department Care Team (Late st Contact Info) Description 02/01/2024 9:30 AM EST Pharmacy Pharmacy Hematology Oncology [facility] [address] [place] [address] [facility] Hem/Onc [facility] [place] [address] 03/28/2024 1:00 PM EST Laboratory Laboratory, [address] [address] [facility], Lab [address] [place] [address] 03/28/2024 2:00 PM EST Telemedicine Hematology/Oncology, [address] [address] Stan Parra MD [address] [place] [address] Cart, Telemed [facility] Hem Onc Clinic [address] [place] [address] 03/28/2024 2:30 PM EST Immunization/Injection Hematology/Oncology Treatment, [address] [address] [facility], [facility] Hem Onc [address] [place] [address] 06/04/2024 8:00 AM EDT Office Visit Family Practice [facility] [address] [place] [address] Kaz Rivas III, MD [address] [place] [address] 07/15/2024 10:15 AM EDT Office Visit Urology [address] [place] [address] [place] [address] Bradley Uriarte Jr., MD [address] [place] [address] 11/13/2024 1:00 PM EDT Office Visit Radiation Oncology, [facility] [address] [place] [address] Iovoli, Dragan Gavin MD [address] [place] [address] Scheduled Orders Name Type Priority Associated Diagnoses Orde r Schedule URIC ACID Lab Routine Acute right ankle pain Expected: 01/16/2024, Expires: 01/15/2025 LYME DISEASE ANTIBODY SCREEN WITH REFLEX TO CONFIRMATION Lab Routine Acute right ankle pain Expected: 01/16/2024, Expires: 01/15/2025 CBC WITH WBC DIFFERENTIAL Lab Routine Acute right ankle pain Expected: 01/16/2024, Expires: 01/15/2025 COMPREHENSIVE METABOLIC PANEL Lab Routine Acute right ankle pain Expected: 01/16/2024, Expires: 01/15/2025 XR ANKLE 3 OR MORE VIEWS Medical Imaging STAT Acute right ankle pain Expected: 01/16/2024, Expires: 02/15/2024 Scheduled Procedures Name Priority Associated Diagnoses Date/Ti [...] the patient have Health Care Power of Gut Dropper? Yes, not currently available Care Teams Salesforce Specialist Relationship Specialty Start Date End Date Kaz Rivas III, MD [address] [place] [facility] [place] [address] PCP - General 10/25/1995 documented as of this encounter"
--- OUTSIDE RECORDS SUMMARY | 2024-01-26 10:41 | External Medical Summary | Summary of Care ---
Author Name Unknown Organization [facility] Address [address] [place] [address] Phone [phone] Care Team Providers Care Life Enrichment Assistant Name Role Phone Evelyn FRANZ MD, Kaz Canela Primary Care Provider [phone] Reason for Visit * Reason Comments Patient Assistance Program Encounter Details Date Type Department Care Team (Late st Contact Info) Description 06/07/2022 Documentation Hematology Oncology [facility] [address] [place] [address] Stan Parra MD [address] [place] [address] Allergies Active Allergy Reactions Criticality Noted Date Comments Levofloxacin Muscle pain 02/07/2018 Oxycodone Nausea/vomiting 02/07/2018 documented as of this encounter (statuses as of 12/17/2023) Medications Medication Sig Dispensed Refills Start Date [...] as of this encounter (statuses as of 12/17/2023) Active Problems Problem Noted Date Diagnosed Date [...] as of this encounter (statuses as of 12/17/2023) Resolved Problems Problem Noted Date Diagnosed Date Resolved Date Supraclavicular lymphadenopathy 02/11/2016 01/02/2018 Screening for prostate cancer 04/15/2003 05/20/2008 Overview: Resolved per Screening Diagnosis Protocol #6 Acute cholecystitis 11/25/2002 05/07/19 19 Diaphragmatic hernia 019 documented as of this encounter (statuses as of 12/17/2023) Immunizations Name Administration Dates Next Due COVID-19 [...] No 05/14/2023 Does the household have a [facility] source of income? (Household [...] Auth Expirin06/05/2025 Pharmacy/Company: [facility] Phone number: IM environmental science technician [place] Location: [facility] Estimated Delivery Date: [facility] - delivers 12/27/2023 formerly [facility] Appointment Date: 12/31/2023 Ordered Date: 12/14/2023 Delivery Address: [facility] Attn: 6th floor IIP POM [address] [place] [address] RX: Eligard Dose: 22.5mg 3 mo Quantity: [...] - 09/21/2023 2:42 PM EDT Krysta Lr, corporate travel counselor 09/21/2023 14:29 Medication received 09/21/23 Estimated Delivery Date: [facility] - order med 12/15/2023 * Jordan Andrade OSA - 09/14/2023 7:42 AM EDT POM Reason: Insurance mandated Insurance Info: [employer] Medicare Advantage Auth Expirin06/05/2025 Pharmacy/Company: [facility] Phone number: IM environmental science technician [place] Location: [facility] Estimated Delivery Date: [facility] - 09/21/2023 Appointment Date: 09/28/2023 Ordered Date: 09/14/2023 Delivery Address: Attn: 6th floor IIP POM [address] [place] [address] RX: Eligard Dose: 22.5mg 3 mo Quantity: [...] - 06/14/2023 3:07 PM EDT Krysta Lr corporate travel counselor 06/14/2023 12:40 Received 1 Eligard 22.5 Kit 06/14/23 Estimated Delivery Date: [facility] - order med 09/14/2023 * Jordan Andrade OSA - 06/05/2023 9:19 AM EDT POM Reason: Insurance mandated Insurance Info: [employer] Medicare Advantage Auth Expirin06/05/2025 Pharmacy/Company: [facility] Phone number: IM environmental science technician [place] Location: [facility] Estimated Delivery Date: [facility] - 06/14/2023 Appointment Date: 06/22/2023 Ordered Date: 06/05/2023 Delivery Address: Attn: 6th floor [address] [place] [address] RX: Eligard Dose: 22.5mg 3 mo Quantity: [...] C61 Prostate Cancer * Mary Jo Gar corporate travel counselor - 03/21/2023 3:56 PM EST 03/21/2023 - Received medication. Defer to 05/16/2023 to order refill. Estimated Delivery Date: received 03/21/2023 - [facility] Appointment Date: 03/16/2023 Ordered Date: 03/02/2023 Delivery Address: Attn: 6th floor IIP POM [address] [place] [address] RX: Eligard Dose: 22.5mg 3 mo Quantity: 1 Manufactured Supplied: No Refills remaining: Injection Number for this order: Next Refill: 05/16/2023 Upcoming Appt: 05/30/2023 * Jordan Andrade OSA - 03/14/2023 2:29 PM EST 03/15/2023 - "Caterina, our buying team said they are waiting to hear from a primary care sales representative from [facility] regarding the ordering issue but we have [...] Mcwilliams 03/14/2023 - Per Vida Kelly at [facility] "Piyush Rubiashwini Tracyd did not come in today [facility] [...] Info: [employer] Medicare Advantage Auth Expirin06/05/2025 Pharmacy/Company: [facility] Phone number: IM environmental science technician [place] Location: [facility] Estimated Delivery Date: 03/21/2023 - [facility] Appointment Date: 03/16/2023 Ordered Date: 03/02/2023 Delivery Address: Attn: 6th floor IIP POM [address] [place] [address] RX: Eligard Dose: 22.5mg 3 mo Quantity: [...] - 12/06/2022 2:21 PM EDT Krysta Lr corporate travel counselor 12/06/2022 13:58 | Received 1 kit of Eligard 12/06/2022 Estimated Delivery Date: Received 12/06/2022-P ABEL Donald [facility] 12/06/2022, 2:21 PM * Mary Jo Gar corporate travel counselor - 11/27/2022 9:02 AM EDT 11/27/2022 - IM'd [facility] to fill. Medication ordered. Defer to 12/06/2022 for delivery. POM Reason: Insurance mandated Insurance Info: [employer]na Medicare Advantage Auth Expirin06/05/2025 Pharmacy/Company: [facility] Phone number: IM environmental science technician [place] Location: [facility] Estimated Delivery Date: 12/06/2022 - [facility] Appointment Date: 12/11/2022 Ordered Date: 11/27/2022 Delivery Address: Attn: 6th floor IIP POM [address] [place] [address] RX: Eligard Dose: 22.5mg 3 mo Quantity: [...] C61 Prostate Cancer ABEL Cerrato [facility] 11/27/2022, 1:19 PM * Mary Jo Gar, corporate travel counselor - 11/20/2022 12:01 PM EDT 11/20/2022 - Defer to 01/27/2023 to order refill. ABEL Cerrato [facility] 11/20/2022, 12:02 PM * Mary Jo Gar corporate travel counselor - 08/31/2022 10:15 AM EDT 09/08/2022 - Received medication per pharmacy staff. Defer 11/20/2022 for refill. 08/31/2022 - IM'd [facility] for refill. Defer to 09/07/2022 for delivery. POM Reason: Insurance mandated Insurance Info: [employer]na Medicare Advantage Auth Expirin06/05/2025 Pharmacy/Company: [facility] Phone number: IM environmental science technician [place] Location:[facility] Estimated Delivery Date: received 09/07/2022 - [facility] Appointment Date: 09/11/2022 Ordered Date:08/31/2022 Delivery Address:Attn: 6th floor IIP POM [address] [place] [place] [address] RX:Eligard Dose:22.5mg 3 mo Quantity:1 Manufactured Supplied:No [...] x 4 DX:C61 Prostate Cancer ABEL Cerrato [facility] 08/31/2022, 10:18 AM * Liza Hoff OSA - 06/15/2022 2:56 PM EDT Estimated Delivery Date: Received 06/15/2022 - [facility] * Mary Jo Gar corporate travel counselor - 06/14/2022 11:44 AM EDT 06/14/2022 - IM'd [facility] to fill script. Defer to 06/15/2022 for delivery. POM Reason: Insurance mandated Insurance Info: [employer]na Medicare Advantage Auth Expirin06/05/2025 Pharmacy/Company: [facility] Phone number: IM environmental science technician [place] Location: [facility] Estimated Delivery Date: 06/15/2022 - [facility] Appointment Date: 06/16/2022 Ordered Date:06/14/2022 Delivery Address: Attn: 6th floor IIP POM [address] [place] [address] RX: Eligard Dose: 22.5mg 3 mo Quantity: [...] C61 Prostate Cancer ABEL Cerrato [facility] 06/14/2022, 11:50 AM * Galina Barnett OSA - 06/07/2022 9:47 AM EDT 06/07/2022- Reached out to Alba Iqbal for test claim POM Reason: Insurance Info: Auth Expiring: Pharmacy/Company: Phone number: [place] Location: [facility] Estimated Delivery Date: TBD Appointment Date: Ordered Date: Delivery Address: Attn: 6th floor IIP POM [address] [place] [address] RX: Eligard Dose: 22.5mg 3 mo Quantity: [...] C61 Prostate Cancer ABEL Donald [facility] 06/07/2022, 10:14 AM documented in this encounter Plan of Treatment Upcoming Encounters Date Type Department Care Team (Late st Contact Info) Description 12/31/2023 12:00 PM EDT Laboratory Laboratory, [facility] [address] [place] [address] [facility], Lab [address] [facility] [place] [address] 12/31/2023 1:00 PM EDT Telemedicine Hematology/Oncology, [facility] [address] [place] [address] Stan Parra MD [address] [place] [address] Cart, Telemed [facility] Hem Onc Clinic [address] [place] [address] 12/31/2023 1:30 PM EDT Immunization/Injection Hematology/Oncology Treatment, [facility] [address] [place] [address] [facility], Chair2 Hem Onc [address] [place] [address] 02/01/2024 9:30 AM [facility] Pharmacy Pharmacy Hematology Oncology [facility] [address] [place] [address] [facility] Clinic Hem/Onc [address] [place] [address] 06/04/2024 8:00 AM EDT Office Visit [facility] [address] [place] [address] Kaz Rivas III, MD [address] [place] [address] 07/15/2024 10:15 AM EDT Office Visit Urology Irene [address] [place] [address] [place] [address] [place] [address] Bradley Uriarte Jr., MD [address] [place] [address] 11/13/2024 1:00 PM EDT Office Visit Radiation Oncology, [facility] [address] [place] [address] IovoliDragan MD [address] [place] [address] Scheduled Procedures Name Priority Associated [...] the patient have Health Care Power of Top Lift Compressor? Yes, not currently available Care Teams Life Enrichment Assistant Relationship Specialty Start Date End Date Kaz Rivas III, MD [address] [facility] [place] [address] PCP - General 10/25/1995 documented as of this encounter
--- OUTSIDE RECORDS SUMMARY | 2024-01-26 10:41 | External Medical Summary ---
Author Name Unknown Address Unknown Organization K09:[facility] [place] [address] Laboratory Report Ordering Provider Test Date Status ALBERTO KUMAR 01/16/2024 12:39:31 Final Observation Date Value Abnormality Reference (Units ) Status SYNC LEUKOCYTES IN BLOOD BY AUTOMATED COUNT 01/16/2024 12:39:31 5.30 4.00-10.80 (K/uL) Final Segs 01/16/2024 12:39:31 83.0 Above high normal 40.0-75.0 (%) Final Lymphs % 01/16/2024 12:39:31 10.8 Below low normal 18.0-42.0 (%) Final Monos 01/16/2024 12:39:31 5.8 1.0-11.0 (%) Final Eosinophils 01/16/2024 12:39:31 0.2 0.0-6.0 (%) Final Basos 01/16/2024 12:39:31 0.2 0.0-2.0 (%) Final Absolute Segs 01/16/2024 12:39:31 4.40 1.80-7.70 (K/uL) Final Lymphs, absolute 01/16/2024 12:39:31 0.57 Below low normal 1.00-4.80 (K/ul) Final Monos, Abs 01/16/2024 12:39:31 0.31 0.00-1.10 (K/uL) Final Eos, Abs 01/16/2024 12:39:31 0.01 0.00-0.70 (K/uL) Final Basos, Abs 01/16/2024 12:39:31 0.01 0.00-0.20 (K/uL) Final Performing Location [facility] [place] [address]
--- OUTSIDE RECORDS SUMMARY | 2024-01-26 10:41 | External Medical Summary | Summary of Care ---
Author Name Unknown Organization [facility] Address [address] [place] [address] Phone [phone] Care Team Providers Care Recovery Coach Name Role Phone Evelyn FRANZ MD, Kaz Canela Primary Care Provider [phone] Reason for Visit * Reason Comments Medication Administration Eligard * Episode Based Medications (Routine) - Authorized Specialty Diagnoses / Procedures Referred By Aj pendleton Referred To Contact Diagnoses Malignant neoplasm of prostate (HCC) Procedures [place] LEUPROLIDE ACETATE SUSPNSION Stan Parra MD [address] [place] [address] [facility] Hem/Onc [facility] [address] [facility] [place] [address] Referral ID Status Reason Start Date Expiration Date V isits Requested Visits Authorized [id number] Authorized 05/23/2022 06/05/2025 [id number] Encounter Details Date Type Department Care Team (Late st Contact Info) Description 12/31/2023 1:30 PM EDT Immunization/I njection Hematology/Oncology Treatment, [facility] [address] [facility] [id number] [facility], Chair8 Hem Onc [address] [facility] [place], [place] [phone] Malignant neoplasm of prostate (HCC)* Allergies Active [...] Nursing Notes * Tamiko Gonzalez LPN - 12/31/2023 1:50 PM EDT Butts 3 Eligard given RLQ abdomen per order. Tolerated well. Patient left IVC by ambulating. Accompanied by Spouse. Voiced no complaints. Tamiko Gonzalez LPN 12/31/2023 1:50 PM documented in this encounter Plan of Treatment Upcoming Encounters Date Type Department Care Team (Late st Contact Info) Description 02/01/2024 9:30 AM EST Pharmacy Pharmacy Hematology [place] [address] [place] [address] [facility], [facility] Hem/Onc [facility] [place] [address] 03/28/2024 1:00 PM EST Laboratory Laboratory, [address] [id number] [facility], Lab [address] [place] [address] 03/28/2024 2:00 PM EST Telemedicine Hematology/Oncology, [address] [address] Stan Parra MD [address] [place] [address] Cart, Telemed [facility] Hem Onc Clinic [address] [place] [address] 03/28/2024 2:30 PM EST Immunization/Injection Hematology/Oncology Treatment, [address] [address] [facility], [facility] Hem Onc [address] [place] [address] 06/04/2024 8:00 AM EDT Office Visit Family Practice [place] [address] [place] [address] [place], [place] [address] Kaz Rivas III, MD [address] [place] [address] 07/15/2024 10:15 AM EDT Office Visit Urology Irene [place] [address] [place] [address] Bradley Uriarte Jr., MD [address] [place] [address] 11/13/2024 1:00 PM EDT Office Visit Radiation Oncology, [facility] [address] [place], [place] [phone] Iovoli, Dragan Gvain MD [address] [place] [address] Scheduled Procedures Name Priority Associated [...] 22.5 mg 22.5 mg, Subcutaneous, ONCE, On 12/31/23 at 1415, For 1 dose Given 12/31/2023 1:46 PM EDT 22.5 mg Abdomen Right Lower documented in this encounter Advance Directives * [...] patient have Health Care Power of Research Project Manager? Yes, not currently available Care Teams Recovery Coach Relationship Specialty Start Date End Date Kaz Rivas III, MD [address] [place] [address] PCP - General 10/25/1995 documented as of this encounter
--- OUTSIDE RECORDS SUMMARY | 2024-01-26 10:41 | External Medical Summary ---
Author Name Unknown Address Unknown Organization K09:[facility] [address] [place] [address] Laboratory Report Ordering Provider Test Date Status ALBERTO KUMAR 01/16/2024 12:39:31 Final Observation Date Value Abnormality Reference (Units ) Status BUN 01/16/2024 12:39:31 13 6-20 (mg/dL) Final Creatinine 01/16/2024 12:39:31 0.8 0.6-1.2 (mg/dL) Final Glomerular filtration rate/1.73 sq M.predicted [Volume Rate/Area] in Serum, Plasma or Blood by Creatinine-based formula (CKD-EPI) 01/16/2024 12:39:31 >90 >=60 (mL/min) Final eGFR is calculated based on the CKD-EPI 2020 equation. Sodium 01/16/2024 12:39:31 142 135-146 (m mol/L) Final Potassium 01/16/2024 12:39:31 3.9 3.5-5.1 (m mol/L) Final Cl 01/16/2024 12:39:31 105 98-107 (mm ol/L) Final CO2 01/16/2024 12:39:31 25 22-32 (mmo l/L) Final Anion gap 01/16/2024 12:39:31 12 7-15 (mmol /L) Final Glucose 01/16/2024 12:39:31 129 Above high normal 70 -120 (mg/dL) Final Albumin 01/16/2024 12:39:31 4.2 3.8-5.0 (g /dL) Final AST (Aspartate aminotransferase) 01/16/2024 12:39:31 21 10-50 (U/L) Fin al Alk Phos 01/16/2024 12:39:31 81 35-130 (U/ L) Final Bilirubin, Total 01/16/2024 12:39:31 0.6 <=1 .2 (mg/dL) Final Calcium 01/16/2024 12:39:31 9.3 8.4-10.2 ( mg/dL) Final Protein 01/16/2024 12:39:31 6.4 6.0-8.3 (g /dL) Final ALT (Alanine aminotransferase) 01/16/2024 12:39:31 13 10-50 (U/L) José kuhn Performing Location [facility] [address] [place] [address]
--- OUTSIDE RECORDS SUMMARY | 2024-01-26 10:41 | External Medical Summary | Summary of Care ---
Author Name Unknown Organization [facility] Address [address] [place] [address] Phone [phone] Care Team Providers Care Enameler Name Role Phone Evelyn FRANZ MD, Kaz Canela Primary Care Provider [phone] Reason for Visit * Reason Comments Patient Assistance Program Encounter Details Date Type Department Care Team (Late st Contact Info) Description 06/07/2022 Documentation Hematology Oncology [facility] [address] [place] [address] Stan Parra MD [address] [place] [address] Allergies Active Allergy Reactions Criticality [...] No 05/14/2023 Does the household have a [facility] source of income? (Household - for [...] this encounter Progress Notes * Aniyah [place], air conditioning sheet metal installer - 12/27/2023 2:16 PM EDT 12/27/23 - received eligard. Defer to 03/18/2024 to order med Estimated Delivery Date: [facility] - order eligard on 03/18/2024. Thank you, Aniyah Diego Medication [facility] [email or web address] 2:19 PM * Jordan Andrade OSA - 12/14/2023 8:54 AM EDT POM Reason: Insurance mandated Insurance Info: [employer] Medicare Advantage Auth Expirin06/05/2025 Pharmacy/Company: [facility] Phone number: IM health technician hearing [place] Location: [facility] Estimated Delivery Date: [facility] - delivers 12/27/2023 - eligard Appointment Date: 12/31/2023 Ordered Date: 12/14/2023 Delivery Address: [facility] Attn: 6th floor IIP POM [address] [place] [address] RX: Eligard Dose: 22.5mg 3 mo Quantity: [...] - 09/21/2023 2:42 PM EDT Krysta Lr air conditioning sheet metal installer 09/21/2023 14:29 Medication received 09/21/23 Estimated Delivery Date: [facility] - order med 12/15/2023 * Jordan Andrade OSA - 09/14/2023 7:42 AM EDT POM Reason: Insurance mandated Insurance Info: [employer] Medicare Advantage Auth Expirin06/05/2025 Pharmacy/Company: [facility] Phone number: IM health technician hearing [place] Location: [facility] Estimated Delivery Date: [facility] - 09/21/2023 Appointment Date: 09/28/2023 Ordered Date: 09/14/2023 Delivery Address: Attn: 6th floor IIP POM [address] [place] [address] RX: Eligard Dose: 22.5mg 3 mo Quantity: [...] - 06/14/2023 3:07 PM EDT Krysta Lr, air conditioning sheet metal installer 06/14/2023 12:40 Received 1 Eligard 22.5 Kit 06/14/23 Estimated Delivery Date: [facility] - order med 09/14/2023 * Jordan Andrade OSA - 06/05/2023 9:19 AM EDT POM Reason: Insurance mandated Insurance Info: [employer] Medicare Advantage Auth Expirin06/05/2025 Pharmacy/Company: [facility] Phone number: IM health technician hearing [place] Location: [facility] Estimated Delivery Date: [facility] - 06/14/2023 Appointment Date: 06/22/2023 Ordered Date: 06/05/2023 Delivery [facility]: [facility] [address] [place] [address] RX: Eligard Dose: 22.5mg 3 mo Quantity: [...] C61 Prostate Cancer * Mary Jo Gar, air conditioning sheet metal installer - 03/21/2023 3:56 PM EST 03/21/2023 - Received medication. Defer to 05/16/2023 to order refill. Estimated Delivery Date: received 03/21/2023 - [facility] Appointment Date: 03/16/2023 Ordered Date: 03/02/2023 Delivery Address: Attn: 6th floor [address]IP [address] [place] [address] RX: Eligard Dose: 22.5mg 3 mo Quantity: 1 Manufactured Supplied: No Refills remaining: Injection Number for this order: Next Refill: 05/16/2023 Upcoming Appt: 05/30/2023 * Jordan Andrade OSA - 03/14/2023 2:29 PM EST 03/15/2023 - "Caterina, our buying team said they are waiting to hear from a direct customer service representative from [facility] regarding the ordering issue but we have [...] Mcwilliams 03/14/2023 - Per Vida Kelly at [facility] "Piyush Weissgard did not come in today [facility] Vida Mcwilliams is working with [...] Info: [employer] Medicare Advantage Auth Expirin06/05/2025 Pharmacy/Company: [facility] Phone number: IM health technician hearing [place] Location: [facility] Estimated Delivery Date: 03/21/2023 - [facility] Appointment Date: 03/16/2023 Ordered Date: 03/02/2023 Delivery Address: Attn: [address] [place] [address] RX: Eligard Dose: 22.5mg 3 mo Quantity: [...] defer to 03/02/2023 to order Eligard from [facility] * Galina Barnett OSA - 12/06/2022 2:21 PM EDT Krysta Lr, air conditioning sheet metal installer 12/06/2022 13:58 | Received 1 kit of Eligard 12/06/2022 Estimated Delivery Date: Received 12/06/2022-[facility]EL Donald [facility] 12/06/2022, 2:21 PM * Mary Jo Gar, air conditioning sheet metal installer - 11/27/2022 9:02 AM EDT 11/27/2022 - IM'd [facility] to fill. Medication ordered. Defer to 12/06/2022 for delivery. POM Reason: Insurance mandated Insurance Info: [employer] Medicare Advantage Auth Expirin06/05/2025 Pharmacy/Company: [facility] Phone number: IM health technician hearing [place] Location: [facility] Estimated Delivery Date: 12/06/2022 - [facility] Appointment Date: 12/11/2022 Ordered Date: 11/27/2022 Delivery Address: Attn: 6th floor IIP [address] [place] [address] RX: Eligard Dose: 22.5mg 3 mo Quantity: [...] 4 DX: C61 Prostate Cancer ABEL Cerrato [facility] 11/27/2022, 1:19 PM * Mary Jo Gar, air conditioning sheet metal installer - 11/20/2022 12:01 PM EDT 11/20/2022 - Defer to 01/27/2023 to order refill. ABEL Cerrato [facility] 11/20/2022, 12:02 PM * Mary Jo Gar air conditioning sheet metal installer - 08/31/2022 10:15 AM EDT 09/08/2022 - Received medication per pharmacy staff. Defer 11/20/2022 for refill. 08/31/2022 - IM'd [facility] for refill. Defer to 09/07/2022 for delivery. POM Reason: Insurance mandated Insurance Info: [employer] Medicare Advantage Auth Expirin06/05/2025 Pharmacy/Company: [facility] Phone number: IM health technician hearing [place] Location:[facility] Estimated Delivery Date: received 09/07/2022 - [facility] Appointment Date: 09/11/2022 Ordered Date:08/31/2022 Delivery Address:Attn: 6th floor IIP POM [address] [place] [address] RX:Eligard Dose:22.5mg 3 mo Quantity:1 Manufactured Supplied:No [...] x 4 DX:C61 Prostate Cancer ABEL Cerrato [facility] 08/31/2022, 10:18 AM * Liza Hoff OSA - 06/15/2022 2:56 PM EDT Estimated Delivery Date: Received 06/15/2022 - [facility] * Mary Jo Gar air conditioning sheet metal installer - 06/14/2022 11:44 AM EDT 06/14/2022 - IM'd [facility] to fill script. Defer to 06/15/2022 for delivery. POM Reason: Insurance mandated Insurance Info: [employer] Medicare Advantage Auth Expirin06/05/2025 Pharmacy/Company: [facility] Phone number: IM health technician hearing [place] Location: [facility] Estimated Delivery Date: 06/15/2022 - [facility] Appointment Date: 06/16/2022 Ordered Date:06/14/2022 Delivery Address: Attn: 6th floor IIP [address] [place] [address] RX: Eligard Dose: 22.5mg 3 mo Quantity: [...] 4 DX: C61 Prostate Cancer ABEL Cerrato [facility] 06/14/2022, 11:50 AM * Galina Barnett OSA - 06/07/2022 9:47 AM EDT 06/07/2022- Reached out to Alba Iqbal for test claim POM Reason: Insurance Info: Auth Expiring: Pharmacy/Company: Phone number: [place] Location: [facility] Estimated Delivery Date: TBD Appointment Date: Ordered Date: Delivery Address: Attn: 6th floor IIP [address] [place] [address] RX: Eligard Dose: 22.5mg 3 mo Quantity: [...] 4 DX: C61 Prostate Cancer ABEL Donald [facility] 06/07/2022, 10:14 AM documented in this encounter Plan of Treatment Upcoming Encounters Date Type Department Care Team (Late st Contact Info) Description 12/31/2023 12:00 PM EDT Laboratory Laboratory, [address] [address] [facility], Lab [address] [place] [address] 12/31/2023 1:00 PM EDT Telemedicine Hematology/Oncology, [address] [address] Stan Parra MD [address] [place] [address] Cart, Telemed [facility] Hem Onc [facility] [address] [place] [address] 12/31/2023 1:30 PM EDT Immunization/Injection Hematology/Oncology Treatment, [address] [address] [facility], Chair8 Hem Onc [address] [place] [address] 02/01/2024 9:30 AM EST Pharmacy Pharmacy Hematology Oncology [facility] [address] [place] [address] [facility] Hem/Onc [address] [place] [address] 06/04/2024 8:00 AM EDT Office Visit [facility] [address] [place] [address] [facility] [place] [address] EvelynKaz napier III, MD [address] [facility] [place] [address] 07/15/2024 10:15 AM EDT Office Visit Urology [place] [address] [place] [address] Bradley Uriarte Jr., MD [address] [place] [address] 11/13/2024 1:00 PM EDT Office Visit Radiation Oncology, [facility] [address] [place] [address] [place], Dragan Gavin MD [address] [place] [address] Scheduled Procedures Name Priority Associated [...] the patient have Health Care Power of Foreclosure Home Inspector? Yes, not currently available Care Teams Enameler Relationship Specialty Start Date End Date Kaz Rivas III, MD [address] [place] [address] PCP - General 10/25/1995 documented as of this encounter
--- OUTSIDE RECORDS SUMMARY | 2024-01-26 10:42 | External Medical Summary | Summary of Care ---
Author Name Unknown Organization [facility] Address [address] [place] [address] Phone [phone] Care Team Providers Care Casing In Line Feeder Name Role Phone Evelyn FRANZ MD, Kaz Canela Primary Care Provider [phone] Reason for Visit * Reason Comments Follow Up Prostate cancer with mets to bone and abd LN Encounter Details Date Type Department Care Team (Late st Contact Info) Description 11/14/2023 1:00 PM EDT Office Visit Radiation Oncology, [facility] [address] [place] [address] IovoliDragan MD [address] [place] [address] Malignant neoplasm of prostate (HCC)* Allergies Active Allergy Reactions Criticality Noted Date Comments Levofloxacin Muscle pain 02/07/2018 Oxycodone Nausea/vomiting 02/07/2018 documented as of this encounter (statuses as of 11/14/2023) Medications Medication Sig Dispensed Refills Start Date [...] needed for Nausea. 50 Tablet 06/16/2022 Active Eligard 22.5 MG Subcutaneous Kit (Leuprolide Acetate (3 Month))Indications :Metastatic malignant neoplasm to prostate (HCC) Inject 22.5 mg under the skin every 3 months for 4 doses. 4 Kit 10/03/2022 12/19/2023 Active Calcium 600+D Plus Minerals 600-400 MG-UNIT Oral Tablet ChewableIndication s:Malignant neoplasm of prostate (HCC) Take 2 Tablets by mouth in the morning. 60 Tablet 2 11/22/2022 Active Tamsulosin HCl 0.4 MG Oral Capsule (Flomax)Indication s:in evening Take 1 Capsule by mouth in the morning. 90 Capsule 3 05/02/2023 Active Additional Information Patient taking differently:0.4 mg OralHS, Indications: in evening, Reported on 06/12/2023 predniSONE 5 MG Oral Tablet (Deltasone)Indicat ions:Malignant neoplasm of prostate (HCC) Take 1 tablet by mouth in the morning. 30 Tablet 5 05/22/2023 Active Abiraterone Acetate 250 MG Oral Tablet (Zytiga)Indication s:Malignant neoplasm of prostate (HCC) Take 1 Tablet by mouth in the morning. 30 Tablet 5 05/22/2023 Active Calcium Carb-Cholecalcifer ol 600-10 MG-MCG Oral Tablet Take 1 Tablet by mouth in the morning. 05/26/2023 Active Omeprazole 40 MG Oral Capsule Delayed [...] A DAY 180 Tablet 3 11/13/2023 Active documented as of this encounter (statuses as of 11/14/2023) Active Problems Problem Noted Date Diagnosed Date [...] as of this encounter (statuses as of 11/14/2023) Resolved Problems Problem Noted Date Diagnosed Date Resolved Date Supraclavicular lymphadenopathy 02/11/2016 01/02/2018 Screening for prostate cancer 04/15/2003 05/20/2008 Overview: Resolved per Screening Diagnosis Protocol #6 Acute cholecystitis 11/25/2002 05/07/19 19 Diaphragmatic hernia 019 documented as of this encounter (statuses as of 11/14/2023) Immunizations Name Administration Dates Next Due COVID-19 mRNA, LNP-s, No Pre serve, 2-Dose Series (Moderna) 05/21/2020,04/23/2020 COVID-19, LNP-s, No Preserve , Rodriguez-sucrose, Ages 12+ (Pfizer) 04/06/2021 Pneumococcal Conjugate Vacc, 13 Valent (Prevnar) 01/12/2016 Pneumococcal Polysaccharide PPV23 (Pneumovax) 01/02/2018 Season Influenza, Quad, PF, Adjuvanted, 65+ Yrs, IM (FLUAD) 12/18/2019 Seasonal Influenza, High Dos e, Trivalent, PF, IM (Fluzone HD) 12/01/2016 Seasonal Influenza, PF, 6 M & above, IM , (FluLaval or Fluzone) 11/22/2018,01/02/2018 Seasonal Influenza, Quadriva lent Hd (Fluzone Hd) 01/11/2022 Seasonal Influenza, Quadriva lent, No Preserve, IM 01/12/2016 Seasonal Influenza, Trivalen t, (IIV3), with Preserv, (Fluzone) 04/17/2014,01/27/2013,11/27/2008,01/15 TDAP, Age 7 and older, IM (Adacel) [...] No 05/14/2023 Does the household have a [facility] source of income? (Household - [...] Sign Reading Time Taken Comments Blood Pressure 143/75 11/14/2023 1:14 PM EDT Pulse 72 11/14/2023 1:14 PM EDT Temperature 36.4 C (97.5 F) 11/14/2023 1:14 PM ED T Respiratory Rate 18 11/14/2023 1:14 PM EDT Oxygen Saturation 97% 11/14/2023 1:14 PM EDT Inhaled Oxygen Concentration - - Weight 93.2 kg (205 lb 8 oz) 11/14/2023 1:14 PM EDT Height - - Body Mass Index 27.87 06/12/2023 1:08 PM EDT documented in this encounter Progress Notes * Dragan Mayfield MD - 11/14/2023 1:00 PM EDT RADIATION ONCOLOGY FOLLOW UP NOTE Radiation Oncology, [address] [address] Name: Piyush Aponte Date: 11/14/2023 REFERRING PHYSICIAN: Dr. Vy Parra DIAGNOSIS: Prostate adenocarcinoma, Hollis 4+5, PSA 20.8, cT2c, "very high" risk (diagnosed 2017), now M1 oligometastatic disease (diagnosed 2022) TREATMENT HISTORY: LT-ADT, Lupron started 06/05/2018, switched to Eligard, final dose of Eligard, 3mo dose, given 09/10/2020 Casodex, started 05/29/2018 Definitive radiation therapy to pelvis/prostate completed 10/14/2018 SBRT to 2 sites of oligo Mets, para-aortic LN and T6 vertebra, completed 06/26/2022 Abiraterone and prednisone, started 05/2022 RADIATION SUMMARY: S/p definitive radiation therapy to pelvis/prostate completed [...] couple weeks of his radiation therapy. S/p SBRT to 2 sites of oligo Mets, para-aortic LN and T6 vertebra, completed 06/26/2022, The total radiation dose for T6 vertebra was 2400 cGy in 3 fractions. The total radiation dose for para-aortic LN was 2500 cGy in 5 fractions. INTERVAL HISTORY: PSMA PET/CT on 11/06/23 negative for any metabolically active disease. Last PSA on 09/28/23 was undetectable. Mr. Aponte is a 73 year old male with oligometastatic prostate cancer who presents with his for follow up. Currently he reports doing well. He is tolerating the abiraterone okay but does have some fatigue and muscle weakness associated with it. These symptoms are tolerable to him and muchbetter after reducing the dose. He has also been having testicular pain that his believes is epidermitis because the symptoms are similar to what he has had before. He denies any other symptoms or changes in his health. No other concerns. ECOG PERFORMANCE STATUS: 1 = Restricted in physically strenuous activity, ambulatory and able to do work of light nature PHYSICAL EXAMINATION: BP 143/75 (BP Site: Left Arm, BP Position: Sitting, BP Cuff Size: Regular) | Pulse 72 | Temp 36.4 C (97.5 F) (Infrared ) | Resp 18 | Wt 93.2 kg (205 lb 8 oz) | SpO2 97% | BMI 27.87 kg/m | BSA 2.18 m Wt Readings from Last 4 Encounters: 11/14/23 93.2 kg (205 lb 8 oz) 09/28/23 92.1 kg (203 lb) 06/22/23 94.7 kg (208 lb 11.2 oz) 06/12/23 93 kg (205 lb) General: Pleasant, fatigued appearing, alert and oriented x3, no apparent distress. Head and neck: Face is symmetric, conjunctiva non-icteric bilaterally. Neurologic: Speech intact, cognition normal, no focal deficits. Thorax: Unlabored breathing on room air. Musculoskeletal: Normal muscle bulk and tone, ambulates with a normal gait. Extremities: Non-edematous bilaterally. Skin: No visible skin lesions. RECENT LABS: PSA Results: Lab Results Component Value Date/Time PSA - [facility] <0.02 09/28/2023 12:59 PM PSA - [facility] 0.03 05/22/2023 02:38 PM PSA - [facility] 0.03 03/21/2023 04:35 PM PSA - [facility] 0.59 12/18/2019 10:28 AM PSA - [facility] 0.85 05/26/2019 10:20 AM PSA - [facility] 2.38 11/22/2018 09:25 AM PSA SCREENING 2.23 07/08/2013 08:39 AM PSA SCREENING 1.74 12/18/2011 07:32 AM PSA SCREENING 2.62 08/31/2010 08:12 AM RECENT RADIOGRAPHIC IMAGING: PET CT SKULL BASE TO MID THIGH PSMA Narrative: EXAM PET CT SKULL BASE TO MID THIGH PSMA - 11/06/2023 11:39 am HISTORY 73 y/o , M, metastatic prostate cancer. TECHNIQUE PET-CT from the pelvis through the skull base was performed 60 minutes following intravenous administration of 8.5 mCi P99-Axlfeuae ([id number]). Noncontrast CT images were obtained for localization and attenuation correction. COMPARISON April 13, 2022 PYLARIFY PET/CT. FINDINGS: PROSTATE: 4 cm prostate gland with fiduciary markers. No piflufolastat-avid focus within the prostate gland. PELVIS: Diffuse wall thickening of the urinary bladder, suggests outlet obstruction. PELVIC AND RETROPERITONEAL LYMPH NODES: Complete piflufolastat-avid resolution aortocaval lymphadenopathy. No piflufolastat-avid pelvic or retroperitoneal lymph nodes. ABDOMEN: Small fat containing umbilical hernia. Diffuse physiologic activity throughout the liver, spleen and kidneys. Cholecystectomy. No renal/ureteral calculi or hydronephrosis. No abdominal aortic aneurysm. No small bowel dilatation evidence for obstruction. Normal caliber appendix. Diverticulosis of the sigmoid colon. No diverticulitis. CHEST: Normal heart size. No pericardial effusion. No coronary artery calcification. No piflufolastat-avid mediastinal, hilar or axillary lymphadenopathy. No airspace opacity or pleural effusion. No focal piflufolastat-avidity localizes to the lung parenchyma. HEAD AND NECK: No piflufolastat-avid cervical lymph nodes. BONES: Complete resolution of piflufolastat-avidity within the T6 vertebral body. No piflufolastat-avid osteoblastic or osteolytic lesions. Impression: IMPRESSION: Positive response to therapy: 1. Complete resolution of piflufolastat-avid aortocaval lymphadenopathy. 2. Complete resolution of piflufolastat-avidity within the T6 vertebral body. ASSESSMENT: Mr. Aponte is a 73 year old male with a history of "very high" risk prostate adenocarcinoma treated with definitively radiation and ADT in 2018. He was diagnosed with M1 oligometastatic disease in 2022 with para-aortic LN and T6 spine involvement with both areas treated with SBRT. He is currently following with Dr. Parra on ADT/abiraterone with recent undetectable PSA and negative PSMA PET. Overall patient has had an excellent response to metastasis-directed therapy and ADT. Currently he has no evidence of metabolically active disease. He was recommended he continue taking ADT/abiraterone and there will be no need for additional PSMA PET testing unless his PSA starts to rise again. For his left testicular pain he was advised to follow up with his urologist or PCP to discuss management options further. Status: Clinically doing well, clinically RICHARD. PLAN: The patient will follow-up in Radiation Oncology in 1 year. Follow up with other physicians as currently scheduled. The patient will contact us in the meantime with questions or concerns. Thank you for having asked us to take part in this patient's care. I spent a total of 30-39 minutes (exact time 35 mins) on the date of service in preparation, delivery, and documentation of the care provided to Piyush Aponte excluding any time spent in the performance of separately billed services or time spent by another provider/QHP. Dragan Mayfield MD 11/14/2023 documented in this encounter Nursing Notes * Venessa Correa LPN - 11/14/2023 1:11 PM EDT Chief Complaint Patient presents with Follow Up Prostate cancer with mets to bone and abd LN Patient presents with today for 6 month return. He completed 3 fractions to T6 on 06/21/22 and 5 fractions to lower abdominal lymph node on 06/26/22. Patient was instructed to not get up on the exam table/exam chair until directed and assisted by their provider; patient is to remain seated in the chair/wheelchair/exam table/exam chair for fall prevention and safety reasons. Patient is aware to have assistance to step down off exam table/exam chair with personnel. Patient voiced full comprehension of instructions. documented in this encounter Plan of Treatment Upcoming Encounters Date Type Department Care Team (Late st Contact Info) Description 11/16/2023 3:15 PM EDT Office Visit [place]rologKerri [place] [address] [place] [address] Sherlyn Perez PA-C [place] [address] 12/03/2023 9:00 AM EDT Office Visit [facility] [place] [address] [facility] [place] [address] Otero Kaz FRANZ MD [address] [place] [address] 12/04/2023 9:30 AM EDT Pharmacy Pharmacy Hematology Oncology [place] [address] [place] [address] [facility] Hem/Onc [facility] [place] [address] 12/31/2023 12:00 PM EDT Laboratory Laboratory, [address] [phone] [facility], Lab [address] [place] [address] 12/31/2023 1:00 PM EDT Telemedicine Hematology/Oncology, [address] [address] Stan Parra MD [address] [place] [address] [place], Telemed [facility] Hem Onc Clinic [address] [place] [address] 12/31/2023 1:30 PM EDT Immunization/Injection Hematology/Oncology Treatment, [address] [address] [facility], Chair2 Hem Onc [address] [place] [address] 11/13/2024 1:00 PM EDT Office Visit Radiation Oncology, [facility] [address] [place], [place] [phone] IovoliDragan MD [address] [place] [phone] Scheduled Procedures Name Priority Associated Diagnoses Date/Ti [...] 2023 04/06/2021, 04/06/2021, 05/21/2020, Additional history exists Influenza Vaccine (FLU shot) (#1) 2023 01/11/2022, 12/18/2019, 11/22/2018, Additional history exists Albumin/Creatinine Ratio 10/05/2024 10/05/2021 GFR 10/24/2024 10/25/2023, 09/09, 08/24/2023, Additional history exists Colonoscopy 08/17/2026 08/17/2021, 10/2021, 03/09/2016, Additional history exists Colorectal Cancer Screening 08/17/2026 Lipid Panel 06/21/2028 06/22/2023, 04/2022, 04/14/2022, Additional history exists Pneumococcal Vaccine: 65+ Years Completed 01/02/2018, 01/12/2016 Zoster Vaccines Completed 12/29/2019, 10/10, 11/30/2011 RETIRED - COLONOSCOPY-EVERY 5 YRS AGES 18-100 Discontinued 08/17/2021, 08/17/2021, 03/09/2016, Additional history exists HPV (Gardasil) Vaccine Aged [...] the patient have Health Care Power of Food And Beverage Associate? Yes, not currently available Care Teams Casing In Line Feeder Relationship Specialty Start Date End Date Kaz Rivas III, MD [address] [place] [address] PCP - General 10/25/1995 documented as of this encounter
--- OUTSIDE RECORDS SUMMARY | 2024-01-26 10:42 | External Medical Summary ---
Author Name Unknown Address Unknown Organization K09[facility] [place] [address] Laboratory Report Ordering Provider Test Date Status HAWK GRANDA III 12/04/2023 12:39:16 Final Observation Date Value Abnormality Reference (Units ) Status Magnesium 12/04/2023 12:39:16 2.1 1.5-2.6 (m g/dL) Final Performing Location [facility] [place] [address]
--- OUTSIDE RECORDS SUMMARY | 2024-01-26 10:42 | External Medical Summary ---
Author Name Unknown Address Unknown Organization K01:[facility] [place] [facility] [address] [place] [address] Laboratory Report Ordering Provider Test Date Status GONZALO YBARRA 11/16/2023 15:50:04 Final Observation Date Value Abnormality Reference (Units) Status Bacteria identified in Specimen by Culture 11/16/2023 15:50:04 No significant growth Final Test: Culture, Urine, Quanti tative
Specimen Source: Urine, Clean Catch
Specimen Type: Urine
Specimen Date: 11/16/2023 1550
Result Date: 11/17/2023 1621
Result Status: Final result
Resulting Lab: [facility]
[address]
[place] [address]

CULTURE

No significant growth

null Performing Location [facility] [place] [facility] [address]. [facility] [address]
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
--- OUTSIDE RECORDS SUMMARY | 2024-01-26 10:42 | External Medical Summary | Summary of Care ---
Author Name Unknown Organization [facility] Address [address] [place] [address] Phone [phone] Care Team Providers Care [employer] Name Role Phone Evelyn FRANZ MD, Kaz Canela Primary Care Provider [phone] Reason for Visit * Reason Onset Date Comments Re-Check Patient is here for recheck. NO concerns. Flu shot. Medication Administration 12/03/2023 Flu an d/or Pneumo Inj Encounter Details Date Type Department Care Team (Late st Contact Info) Description 12/03/2023 9:00 AM EDT Office Visit [facility] [address] [facility] [place] [address] Kaz Rivas III, MD [address] [facility] [place] [address] HTN, goal below 140/90*; Need for prophylactic vaccination and inoculation against influenza; Anemia, unspecified type; Encounter for long-term (current) use of medications Allergies Active Allergy Reactions Criticality Noted Date Comments Levofloxacin Muscle pain 02/07/2018 Oxycodone Nausea/vomiting 02/07/2018 documented as of this encounter (statuses as of 12/03/2023) Medications Medication Sig Dispensed Refills Start Date End Date Status Multiple Vitamins-Minerals (CENTRUM SILVER 50+MEN) TABS Take by mouth. Active Acetaminophen ER 650 MG Oral Tablet Extended Release Take 1 Tablet by mouth every 8 hours as needed for Pain, Severe. 30 Tablet 04/06/2021 Active Ondansetron HCl 8 MG Oral TabletIndications :Metastatic malignant neoplasm to prostate (HCC),Nausea Take 1 Tablet by mouth every 8 hours as needed for Nausea. 50 Tablet 06/16/2022 Active Eligard 22.5 MG Subcutaneous Kit (Leuprolide Acetate (3 Month))Indication s:Metastatic malignant neoplasm to prostate (HCC) Inject 22.5 mg under the skin every 3 months for 4 doses. 4 Kit 10/03/2022 Active Calcium 600+D Plus Minerals 600-400 MG-UNIT [...] 40 MG Oral Capsule Delayed Release (PriLOSEC)Indicat ions:Gastroesopha geal reflux disease with esophagitis without hemorrhage,Gastri tis without bleeding, unspecified chronicity, unspecified gastritis type TAKE 1 CAPSULE DAILY 1 HOURBEFORE THE FIRST MEAL OF THE DAY and 1 hour before dinner 180 Capsule 2 05/31/2023 Active Rosuvastatin Calcium 5 MG Oral Tablet (Crestor) Take 1 Tablet by mouth in the morning. 90 Tablet 3 08/03/2023 Active Sucralfate 1 GM Oral Tablet (Carafate)Indicat ions:Gastritis TAKE 1 TABLET 1 HOUR BEFOREMEALS AND AT BEDTIME, DISSOLVE IN WATER 120 Tablet 5 10/19/2023 Active Apixaban 5 MG Oral Tablet (Eliquis) TAKE 1 TABLET TWICE A DAY 180 Tablet 3 11/13/2023 Active predniSONE 5 MG Oral Tablet (Deltasone)Indica tions:Malignant neoplasm of prostate (HCC) Take 1 tablet by mouth in the morning. 30 Tablet 5 11/30/2023 Active Abiraterone Acetate 250 MG Oral Tablet (Zytiga)Indicatio ns:Malignant neoplasm of prostate (HCC) Take 1 Tablet by mouth in the morning. 30 Tablet 5 11/30/2023 Active Calcium Carb-Cholecalcife rol 600-10 MG-MCG Oral Tablet Take 1 Tablet by mouth in the morning. 05/26/2023 09/23/202 4 Discontinue d(Medicatio n List Clean Up) documented as of this encounter (statuses as of 12/03/2023) Active Problems Problem Noted Date Diagnosed Date [...] as of this encounter (statuses as of 12/03/2023) Resolved Problems Problem Noted Date Diagnosed Date Resolved Date Supraclavicular lymphadenopathy 02/11/2016 01/02/2018 Screening for prostate cancer 04/15/2003 05/20/2008 Overview: Resolved per Screening Diagnosis Protocol #6 Acute cholecystitis 11/25/2002 05/07/19 19 Diaphragmatic hernia 019 documented as of this encounter (statuses as of 12/03/2023) Immunizations Name Administration Dates Next Due COVID-19 mRNA, LNP-s, No Pre serve, 2-Dose Series (Moderna) 05/21/2020,04/23/2020 COVID-19, LNP-s, No Preserve , Rodriguez-sucrose, Ages 12+ (BioMarker Strategies) 04/06/2021 Pneumococcal Conjugate Vacc, 13 Valent (Prevnar) [...] Does the household have a [facility] source of income? (Household - for [...] Sign Reading Time Taken Comments Blood Pressure 130/86 12/03/2023 9:02 AM EDT Pulse 73 12/03/2023 9:02 AM EDT Temperature 36.4 C (97.5 F) 12/03/2023 9:02 AM ED T Respiratory Rate 20 12/03/2023 9:02 AM EDT Oxygen Saturation 93% 12/03/2023 9:02 AM EDT Inhaled Oxygen Concentration - - Weight 92.2 kg (203 lb 3.2 oz) 12/03/2023 9:02 A M EDT Height 182.9 cm (6') 12/03/2023 9:02 AM EDT Body Mass Index 27.56 12/03/2023 9:02 AM EDT documented in this encounter Progress Notes * Evelyn FRANZ, Kaz Canela MD - 12/03/2023 9:17 AM EDT Subjective: Piyush Aponte is a 73 year old male. Chief Complaint Patient presents with Re-Check Patient is here for recheck. NO concerns. Flu shot. Medication Administration Flu and/or Pneumo Inj HPI: Follow-up hypertension gastroesophageal reflux has prostate cancer last PET scan negative PSA undetectable walks 30 minutes 3-5 times per week no exertional chest pain shortness breast claudication or swelling no bleeding urine or bowels eyes are checked last hemoglobin 12 point 5 PMH: Patient Active Problem List Diagnosis Reflux esophagitis FAM HX-DIABETES MELLITUS Special screening for malignant neoplasms, colon Family history of other cardiovascular diseases Dyslipidemia, goal LDL below 130 Deviated nasal septum Lymphedema of left lower extremity HTN, goal below 140/90 Malignant neoplasm of prostate (HCC) Pseudogout Dyslipidemia History of 2019 novel coronavirus disease (COVID-19) Closed nondisplaced fracture of first cervical vertebra with delayed healing Closed fracture of second lumbar vertebra with routine healing Carpal tunnel syndrome, bilateral Gastroesophageal reflux disease Compression fracture of body of thoracic vertebra (HCC) TANYA (acute kidney injury) (HCC) Nausea Current Outpatient Medications Medication Sig Dispense Refill Multiple Vitamins-Minerals (CENTRUM SILVER 50+MEN) TABS Take by mouth. Acetaminophen ER 650 MG Oral Tablet Extended Release Take 1 Tablet by mouth every 8 hours as neededfor Pain, Severe. 30 Tablet 0 Ondansetron HCl 8 MG Oral Tablet Take 1 Tablet by mouth every 8 hours as needed for Nausea. 50 Tablet 0 Eligard 22.5 MG Subcutaneous Kit (Leuprolide Acetate (3 Month)) Inject 22.5 mg under the skin every3 months for 4 doses. 4 Kit 0 Calcium 600+D Plus Minerals 600-400 MG-UNIT [...] mouth in the morning. 30 Tablet 5 No current facility-administered medications for this visit. Review of patient's allergies indicates: Allergen Reactions Levaquin [Levofloxacin] Muscle pain Oxycodone Nausea/vomiting Past Medical History: Diagnosis Date Deviated septum [...] performed by Umair Cook MD at ENDOSCOPY [facility] COLONOSCOPY, DIAGNOSTIC (RECTUM) 08/17/2021 benign polyp, diverticulosis, repeat 5 yrs / COLONOSCOPY FLEXIBLE PROXIMAL DIAGNOSTIC performed by Chavez Abbasi MD at ENDOSCOPY [facility] COLONOSCOPY, GI REFERRAL OP 03/02/2006 hyperplastic polyps--repeat 5 years COLORECTAL CANCER SCREEN;W/FLE 06/05/2001 70 cms wnl DENTAL SURGERY PROCEDURE NEC Dental Surgery Procedure EGD, FLEXIBLE, DIAGNOSTIC 12/22/2011 UPPER GI ENDOSCOPY DIAGNOSTIC performed by Berkley Rosen DO at ENDOSCOPY [facility] bile reflux and inlet patch EGD, FLEXIBLE, DIAGNOSTIC 06/18/2023 biopsies from esophagus show mild inflammation/ESOPHAGOGASTRODUODENOSCOPY (EGD), FLEXIBLE, TRANSORAL, DIAGNOSTIC performed by Ayah Meza MD at ENDOSCOPY [facility] INFORMATION 1982 Herniated disc repair KNEE ARTHROSCOPY/MENISCUS REPAIR Left 2014 KNEE ARTHROSCOPY/SURGERY Left 09/23/2020 shave menniscus chondroplasty REMOVE GALLBLADDER 11/17/2002 Cholecystectomy - open [facility] Dr. Gold REMOVE LUMBAR SPINE LAMINA, 3+ SEGS 1981 Lumbar Disk Excision REMOVE TONSILS & ADENOIDS, UNDER 12 Tonsillectomy/Adenoids,<12 Y/O SHOULDER ARTHROSCOPY/DEBRIDEMENT Left 2017 STRESS TREADMILL 2000 wnl TRANSPERINEAL BX OF PROSTATE, STEREOTACTIC N/A 04/30/2018 TRANSPERINEAL BX OF PROSTATE, STEREOTACTIC performed by Vy Tyler MD at OR [facility] UPPER ENDOSCOPY GI REFERRAL OP 03/02/2006 acid reflux--no Rodas's esophagus or H.Pylori Objective: The patient is a 73 year old male BP 130/86 (BP Site: Left Arm, BP Position: Sitting, BP Cuff Size: Regular) | Pulse 73 | Temp 36.4 C (97.5 F) (Tympanic) | Resp 20 | Ht 1.829 m (6') | Wt 92.2 kg (203 lb 3.2 oz) | SpO2 93% | BMI 27.56 kg/m | BSA 2.16 m General: alert, healthy, and no distress Eye Exam: PERRLA, extraocular movements intact, conjunctiva are pink and non- injected, sclera clear Oropharynx: no exudate, no erythema, lips, buccal mucosa, and tongue normal, and mucous membranes are moist Heart: regular rate & rhythm, no murmur, and no gallops Lungs: lungs clear to auscultation Extremities: no edema, no clubbing, no cyanosis ASSESSMENT: (I10) HTN, goal below 140/90 (primary encounter diagnosis) (Z23) Need for prophylactic vaccination and inoculation against influenza (D64.9) Anemia, unspecified type (Z79.899) Encounter for long-term (current) use of medications PLAN: Check ferritin transferrin saturation magnesium B12 flu vaccine given RSV vaccine COVID discussed call if problems continue present meds Follow up in 6 month(s). Kaz Rivas III, MD * Tati Antonio LPN - 12/03/2023 9:02 AM EDT PRE - ADMINISTRATION DOCUMENTATION Are you experiencing any cold symptoms or fever? No Have you had Guillain-Swayzee Syndrome (an illness that causes paralysis) within the last 6 weeks? No Have you had the flu shot in the past? YES Have you ever had a reaction to the flu shot? No Tati Antonio LPN, 12/03/2023 9:02 AM Immunization Administration Documentation Time Out Procedure Performed: Yes Patient Identified (Ask Name/Date of ): Yes Does the patient have a fever greater than 101 degrees today? No Patient allergic to latex? No VFC Stock: No Immunization(s) verified: Yes, Immunization Name: Flu, VIS Sheet(s) given: Yes Verified Side and Site: Yes Verified Shot(s) with Parent(s)/Patient: Yes documented in this encounter Nursing Notes * Tati Antonio LPN - 12/03/2023 9:01 AM EDT Chief Complaint Patient presents with Re-Check Patient is here for recheck. NO concerns. Flu shot. documented in this encounter Plan of Treatment Upcoming Encounters Date Type Department Care Team (Late st Contact Info) Description 12/04/2023 9:30 AM EDT Pharmacy Pharmacy Hematology Oncology [facility] [address] [place] [address] [facility] Hem/Onc [address] [place] [address] 12/31/2023 12:00 PM EDT Laboratory Laboratory, [address] [id number] [facility], Lab [address] [place] [address] 12/31/2023 1:00 PM EDT Telemedicine Hematology/Oncology, [address] [address] Stan Parra MD [address] [place] [address] Cart, Telemed [facility] Hem Onc Clinic [address] [place] [address] 12/31/2023 1:30 PM EDT Immunization/Injection Hematology/Oncology Treatment, [facility] [address] [place] [address] [facility], Chair2 Hem Onc [address] [place] [address] 06/04/2024 8:00 AM EDT Office Visit [facility] [place] [address] [place] [address] Kaz Rivas III, MD [address] [place] [address] 07/15/2024 10:15 AM EDT Office Visit Urology [facility] [place] [address] [address] Bradley Uriarte Jr., MD [address] [place] [address] 11/13/2024 1:00 PM EDT Office Visit Radiation Oncology, [facility] [address] [place] [address] IovoliDragan MD [address] [place] [address] Scheduled Orders Name Type Priority Associated Diagnoses Orde r Schedule IRON SCREEN, INCLUDING TIBC Lab Routine Anemia, unspecified type Expected: 12/03/2023 (Approximate), Expires: 12/02/2024 FERRITIN Lab Routine Anemia, unspecified type Expected: 12/03/2023 (Approximate), Expires: 12/02/2024 VITAMIN B12 Lab Routine Anemia, unspecified type Expected: 12/03/2023 (Approximate), Expires: 12/02/2024 MAGNESIUM Lab Routine Encounter for long-term (current) use of medications Expected: 12/03/2023 (Approximate), Expires: 12/02/2024 Scheduled Procedures Name Priority Associated Diagnoses Date/Ti [...] as of this encounter Visit Diagnoses Diagnosis HTN, goal below 140/90- Primary Unspecified essential hypertension Need for prophylactic vaccination and inoculation against influenza Anemia, unspecified type Encounter for long-term (current) use of medications Encounter for long-term (current) use of other medications documented in this encounter Advance Directives * [...] the patient have Health Care Power of Ladle Watcher? Yes, not currently available Care Teams [employer] Relationship Specialty Start Date End Date Kaz Rivas III, MD [address] [place] [address] PCP - General 10/25/1995 documented as of this encounter"
--- OUTSIDE RECORDS SUMMARY | 2024-01-26 10:42 | External Medical Summary ---
Author Name Unknown Address Unknown Organization K09:[facility] [place] [address] Laboratory Report Ordering Provider Test Date Status JESÚS BESS 12/04/2023 12:39:16 Final Observation Date Value Abnormality Reference (Units ) Status SYNC LEUKOCYTES IN BLOOD BY AUTOMATED COUNT 12/04/2023 12:39:16 6.04 4.00-10.80 (K/uL) Final Segs 12/04/2023 12:39:16 89.1 Above high normal 40.0-75.0 (%) Final Lymphs % 12/04/2023 12:39:16 5.6 Below low normal 18.0-42.0 (%) Final Monos 12/04/2023 12:39:16 4.8 1.0-11.0 (%) Final Eosinophils 12/04/2023 12:39:16 0.3 0.0-6.0 (%) Final Basos 12/04/2023 12:39:16 0.2 0.0-2.0 (%) Final Absolute Segs 12/04/2023 12:39:16 5.38 1.80-7.70 (K/uL) Final Lymphs, absolute 12/04/2023 12:39:16 0.34 Below low normal 1.00-4.80 (K/ul) Final Monos, Abs 12/04/2023 12:39:16 0.29 0.00-1.10 (K/uL) Final Eos, Abs 12/04/2023 12:39:16 0.02 0.00-0.70 (K/uL) Final Basos, Abs 12/04/2023 12:39:16 0.01 0.00-0.20 (K/uL) Final Performing Location [facility] [place] [address]
--- OUTSIDE RECORDS SUMMARY | 2024-01-26 10:42 | External Medical Summary | Summary of Care ---
Author Name Unknown Organization [facility] Address [address] [place] [address] Phone [phone] Care Team Providers Care [employer] Name Role Phone Evelyn FRANZ MD, Kaz Canela Primary Care Provider [phone] Reason for Visit * Reason Comments Patient Assistance Program Encounter Details Date Type Department Care Team (Late st Contact Info) Description 06/07/2022 Documentation Hematology Oncology [facility] [address] [place] [address] Stan Parra MD [address] [place] [address] Allergies Active Allergy Reactions Criticality Noted Date Comments Levofloxacin Muscle pain 02/07/2018 Oxycodone Nausea/vomiting 02/07/2018 documented as of this encounter (statuses as of 12/14/2023) Medications Medication Sig Dispensed Refills Start Date [...] as of this encounter (statuses as of 12/14/2023) Active Problems Problem Noted Date Diagnosed Date [...] as of this encounter (statuses as of 12/14/2023) Resolved Problems Problem Noted Date Diagnosed Date Resolved Date Supraclavicular lymphadenopathy 02/11/2016 01/02/2018 Screening for prostate cancer 04/15/2003 05/20/2008 Overview: Resolved per Screening Diagnosis Protocol #6 Acute cholecystitis 11/25/2002 05/07/19 19 Diaphragmatic hernia 019 documented as of this encounter (statuses as of 12/14/2023) Immunizations Name Administration Dates Next Due COVID-19 [...] No 05/14/2023 Does the household have a [facility] source of income? (Household - [...] Auth Expirin06/05/2025 Pharmacy/Company: [facility] Phone number: IM weight reducing technician [place] Location: [facility] Estimated Delivery Date: [facility] - awaiting delivery date Appointment Date: 12/31/2023 Ordered Date: 12/14/2023 Delivery Address: [facility] Attn: 6th floor [facility]IP [facility] [address] [facility] [address] RX: Eligard Dose: 22.5mg 3 mo Quantity: [...] - 09/21/2023 2:42 PM EDT Krysta Lr, manager assisted living 09/21/2023 14:29 Medication received 09/21/23 Estimated Delivery Date: [facility] - order med 12/15/2023 * Jordan Andrade OSA - 09/14/2023 7:42 AM EDT POM Reason: Insurance mandated Insurance Info: [employer] Medicare Advantage Auth Expirin06/05/2025 Pharmacy/Company: [facility] Phone number: IM weight reducing technician [place] Location: [facility] Estimated Delivery Date: [facility] - 09/21/2023 Appointment Date: 09/28/2023 Ordered Date: 09/14/2023 Delivery Address: Attn: 6th floor IIP POM [address] [facility] [place] [address] RX: Eligard Dose: 22.5mg 3 mo Quantity: [...] - 06/14/2023 3:07 PM EDT Krysta Lr manager assisted living 06/14/2023 12:40 Received 1 Eligard 22.5 Kit 06/14/23 Estimated Delivery Date: [facility] - order med 09/14/2023 * Jordan Andrade OSA - 06/05/2023 9:19 AM EDT POM Reason: Insurance mandated Insurance Info: [employer] Medicare Advantage Auth Expirin06/05/2025 Pharmacy/Company: [facility] Phone number: IM weight reducing technician [place] Location: [facility] Estimated Delivery Date: [facility] - 06/14/2023 Appointment Date: 06/22/2023 Ordered Date: 06/05/2023 Delivery Address: Attn: 6th floor IIP [facility] [address] [place] [address] RX: Eligard Dose: 22.5mg 3 mo Quantity: [...] C61 Prostate Cancer * Mary Jo Gar manager assisted living - 03/21/2023 3:56 PM EST 03/21/2023 - Received medication. Defer to 05/16/2023 to order refill. Estimated Delivery Date: received 03/21/2023 - [facility] Appointment Date: 03/16/2023 Ordered Date: 03/02/2023 Delivery Address: Attn: 6th floor IIP POM [address] [place] [address] RX: Eligard Dose: 22.5mg 3 mo Quantity: 1 Manufactured Supplied: No Refills remaining: Injection Number for this order: Next Refill: 05/16/2023 Upcoming Appt: 05/30/2023 * Jordan Andrade OSA - 03/14/2023 2:29 PM EST 03/15/2023 - "Caterina, our buying team said they are waiting to hear from a sales and marketing representative from [facility] regarding the ordering issue but we [...] Vida Kelly at [facility] "Piyush Rubiashwini Weissgard did not come in today [facility] [...] Pharmacy/Company: [facility] Phone number: IM weight reducing technician [place] Location: [facility] Estimated Delivery Date: 03/21/2023 - [facility] Appointment Date: 03/16/2023 Ordered Date: 03/02/2023 Delivery Address: Attn: 6th floor IIP POM [address] [place] [address] RX: Eligard Dose: 22.5mg 3 mo Quantity: [...] - 12/06/2022 2:21 PM EDT Krysta Lr manager assisted living 12/06/2022 13:58 | Received 1 kit of Eligard 12/06/2022 Estimated Delivery Date: Received 12/06/2022-[facility] 12/06/2022, 2:21 PM * Mar yJo Gar manager assisted living - 11/27/2022 9:02 AM EDT 11/27/2022 - IM'd [facility] to fill. Medication ordered. Defer to 12/06/2022 for delivery. POM Reason: Insurance mandated Insurance Info: [employer] Medicare Advantage Auth Expirin06/05/2025 Pharmacy/Company: [facility] Phone number: IM weight reducing technician [place] Location: [facility] Estimated Delivery Date: 12/06/2022 - [facility] Appointment Date: 12/11/2022 Ordered Date: 11/27/2022 Delivery Address: Attn: 6th floor IIP POM [address] [place] [address] RX: Eligard Dose: 22.5mg 3 mo Quantity: [...] DX: C61 Prostate Cancer [facility] 11/27/2022, 1:19 PM * Mary Jo Gar manager assisted living - 11/20/2022 12:01 PM EDT 11/20/2022 - Defer to 01/27/2023 to order refill. [facility] 11/20/2022, 12:02 PM * Mary Jo Gar manager assisted living - 08/31/2022 10:15 AM EDT 09/08/2022 - Received medication per pharmacy staff. Defer 11/20/2022 for refill. 08/31/2022 - IM'd [facility] for refill. Defer to 09/07/2022 for delivery. POM Reason: Insurance mandated Insurance Info: [employer] Medicare Advantage Auth Expirin06/05/2025 Pharmacy/Company: [facility] Phone number: IM weight reducing technician [place] Location:[facility] Estimated Delivery Date: received 09/07/2022 - [facility] Appointment Date: 09/11/2022 Ordered Date:08/31/2022 Delivery Address:Attn: 6th floor IIP POM [address] [place] [address] RX:Eligard Dose:22.5mg 3 mo Quantity:1 Manufactured Supplied:No [...] 4 DX:C61 Prostate Cancer [facility] 08/31/2022, 10:18 AM * Liza Hoff OSA - 06/15/2022 2:56 PM EDT Estimated Delivery Date: Received 06/15/2022 - [facility] * Mary Jo Gar manager assisted living - 06/14/2022 11:44 AM EDT 06/14/2022 - IM'd [facility] to fill script. Defer to 06/15/2022 for delivery. POM Reason: Insurance mandated Insurance Info: [employer] Medicare Advantage Auth Expirin06/05/2025 Pharmacy/Company: [facility] Phone number: IM weight reducing technician [place] Location: [facility] Estimated Delivery Date: 06/15/2022 - [facility] Appointment Date: 06/16/2022 Ordered Date:06/14/2022 Delivery Address: Attn: 6th floor IIP POM [address] [place] [address] RX: Eligard Dose: 22.5mg 3 mo Quantity: [...] DX: C61 Prostate Cancer [facility] 06/14/2022, 11:50 AM * Galina Barnett OSA - 06/07/2022 9:47 AM EDT 06/07/2022- Reached out to Alba Iqbal for test claim POM Reason: Insurance Info: Auth Expiring: Pharmacy/Company: Phone number: [place] Location: [facility] Estimated Delivery Date: TBD Appointment Date: Ordered Date: Delivery Address: Attn: 6th floor IIP POM [address] [place] [address] RX: Eligard Dose: 22.5mg 3 mo Quantity: [...] DX: C61 Prostate Cancer [facility] 06/07/2022, 10:14 AM documented in this encounter Plan of Treatment Upcoming Encounters Date Type Department Care Team (Late st Contact Info) Description 12/31/2023 12:00 PM EDT Laboratory Laboratory, [facility] [address] [facility] [address] [facility] [address] [facility] [place] [address] 12/31/2023 1:00 PM EDT Telemedicine Hematology/Oncology, [address] [place] [address] Stan Parra MD [address] [place] [address] Dawna Baered [facility] Hem Onc Clinic [address] [place] [address] 12/31/2023 1:30 PM EDT Immunization/Injection Hematology/Oncology Treatment, [facility] [address] [place] [address] [facility], Chair2 Hem Onc [address] [place] [address] 02/01/2024 9:30 AM [facility] Pharmacy Pharmacy Hematology Oncology [facility] [address] [place] [address] [facility] Hem/Onc [address] [place] [address] 06/04/2024 8:00 AM EDT Office Visit [facility] [address] [place] [address] Kaz Rivas III, MD [address] [place] [address] 07/15/2024 10:15 AM EDT Office Visit Urology Irene [facility] [place] [address] [place] [address] [place] [address] Bradley Uriarte Jr., MD [address] [place] [address] 11/13/2024 1:00 PM EDT Office Visit Radiation Oncology, [facility] [address] [place], [place] [id number] [place], Dragan Gavin MD [address] [place] [address] Scheduled Procedures Name Priority Associated [...] the patient have Health Care Power of Maintenance Associate? Yes, not currently available Care Teams Railway Switch Operator Relationship Specialty Start Date End Date Evelyn FRANZ, Kaz Canela MD [address] [facility] [place] [address] PCP - General 10/25/1995 documented as of this encounter
--- OUTSIDE RECORDS SUMMARY | 2024-01-26 10:42 | External Medical Summary ---
Author Name Unknown Address Unknown Organization K01:[facility] - [address] [place] [address] Laboratory Report Ordering Provider Test Date Status HAWK GRANDA III 12/04/2023 12:39:16 Final Observation Date Value Abnormality Reference (Units ) Status Ferritin 12/04/2023 12:39:16 109 30-400 (ng /mL) Final Performing Location LAB[facility]ORY [facility] - [address] [place] [address]
--- OUTSIDE RECORDS SUMMARY | 2024-01-26 10:42 | External Medical Summary | Summary of Care ---
Author Name Unknown Organization [facility] Address [address] [place] [address] Phone [phone] Care Team Providers Care Ice Cream Mixer Name Role Phone Evelyn FRANZ MD, Kaz Canela Primary Care Provider [phone] Reason for Visit * Reason Comments Outpatient Testing Encounter Details Date Type Department Care Team (Late st Contact Info) Description 12/04/2023 12:30 PM EDT Laboratory Laboratory [facility] [place] [address] [place] [phone] [place], Lab Scenery [address] [place] [address] Malignant neoplasm of prostate (HCC); Anemia, unspecified type; Encounter for long-term (current) use of medications Allergies Active Allergy Reactions Criticality Noted Date Comments Levofloxacin Muscle pain 02/07/2018 Oxycodone Nausea/vomiting 02/07/2018 documented as of this encounter (statuses as of 12/04/2023) Medications Medication Sig Dispensed Refills Start Date [...] the morning. 30 Tablet 5 11/30/2023 Active documented as of this encounter (statuses as of 12/04/2023) Active Problems Problem Noted Date Diagnosed Date [...] as of this encounter (statuses as of 12/04/2023) Resolved Problems Problem Noted Date Diagnosed Date Resolved Date Supraclavicular lymphadenopathy 02/11/2016 01/02/2018 Screening for prostate cancer 04/15/2003 05/20/2008 Overview: Resolved per Screening Diagnosis Protocol #6 Acute cholecystitis 11/25/2002 05/07/19 19 Diaphragmatic hernia 019 documented as of this encounter (statuses as of 12/04/2023) Immunizations Name Administration Dates Next Due COVID-19 [...] Care Team (Late st Contact Info) Description 12/07/2023 9:30 AM EDT Pharmacy Pharmacy Hematology Oncology [facility] [address] [place] [address] [facility] [place], [facility] Hem/Onc [address] [place] [address] 12/31/2023 12:00 PM EDT Laboratory Laboratory, [address] [phone] [facility], Lab [address] [place] [address] 12/31/2023 1:00 PM EDT Telemedicine Hematology/Oncology, [address] [address] Stan Parra MD [address] [place] [address] Cart, Telemed [facility] [id number] 12/31/2023 1:30 PM EDT Immunization/Injection Hematology/Oncology Treatment, [facility] [address] [facility] [place] [address] [facility], Chair2 Hem Onc 400 [facility] [place] [id number] 06/04/2024 8:00 AM EDT Office Visit Family Practice [facility] [place] 200 [facility] [place] [address] Kaz Rivas III, MD [facility] [address] 07/15/2024 10:15 AM EDT Office Visit Urology [place] [address] [address] Bradley Uriarte Jr., MD [address] [place] [address] 11/13/2024 1:00 PM EDT Office Visit Radiation Oncology, [facility] [address] [place] [address] IovoliDragan MD [address] [place] [address] Pending Results Name Type Priority Associated Diagnoses Date /Time COMPREHENSIVE METABOLIC PANEL Lab STAT Malignant neoplasm of prostate (HCC) 12/04/2023 12:39 PM EDT IRON SCREEN, INCLUDING TIBC Lab Routine Anemia, unspecified type 12/04/2023 12:39 PM EDT FERRITIN Lab Routine Anemia, unspecified type 12/04/2023 12:39 PM EDT VITAMIN B12 Lab Routine Anemia, unspecified type 12/04/2023 12:39 PM EDT MAGNESIUM Lab Routine Encounter for long-term (current) use of medications 12/04/2023 12:39 PM EDT Scheduled Procedures Name Priority Associated [...] Date/Time Associated Diagnosis Comments DIFFERENTIAL, AUTOMATED STAT 12/04/2023 12:39 PM EDT Malignant neoplasm of prostate (HCC) CBC STAT 12/04/2023 12:39 PM EDT Malignant neoplasm of prostate (HCC) CBC STAT 12/04/2023 12:39 PM EDT Malignant neoplasm of prostate (HCC) documented in this encounter Results * (ABNORMAL) DIFFERENTIAL, AUTOMATED (12/04/2023 12:39 PM EDT) WBC 6.04 4.00 - 10.80 K/uL 12/04/2023 12:43 PM EDT [facility] [facility]02 Neutrophils % 89.1(H) 40.0 - 75.0 % 12/04/2023 12:43 PM EDT [facility] [facility]02 Lymphocytes % 5.6(L) 18.0 - 42.0 % 12/04/2023 12:43 PM EDT [facility] [facility]02 Monocytes % 4.8 1.0 - 11.0 % 12/04/2023 12:43 PM EDT [facility] [place] 56[facility]02 Eosinophils % 0.3 0.0 - 6.0 % 12/04/2023 12:43 PM EDT [facility] 56[facility]02 Basophils % 0.2 0.0 - 2.0 % 12/04/2023 12:43 PM EDT [facility] 56[facility]02 Absolute Neutrophils 5.38 1.80 - 7.70 K/uL 12/04/2023 12:43 PM EDT [facility] [place] 56[facility]02 Absolute Lymphocytes 0.34(L) 1.00 - 4.80 K/ul 12/04/2023 12:43 PM EDT [facility] [place] 56[facility]02 Absolute Monocytes 0.29 0.00 - 1.10 K/uL 12/04/2023 12:43 PM EDT [facility] 56[facility]02 Absolute Eosinophils 0.02 0.00 - 0.70 K/uL 12/04/2023 12:43 PM EDT [facility] 56[facility]02 Absolute Basophils 0.01 0.00 - 0.20 K/uL 12/04/2023 12:43 PM EDT [facility] [place] 56[facility]02 Blood Venous blood specimen / Unknown Venipuncture / Unknown 12/04/2023 12:39 PM EDT 12/04/2023 12:39 PM EDT Stan Parra MD LAB BLOOD O [place]DER[place]LES [place] [address] [place] [address] * (ABNORMAL) CBC (12/04/2023 12:39 PM EDT) WBC 6.04 4.00 - 10.80 K/uL 12/04/2023 12:43 PM EDT [place] [address] RBC 4.24 4.50 - 5.25 M/uL 12/04/2023 12:43 PM EDT [place] [address] HGB 13.0(L) 14.0 - 16.8 g/dL 12/04/2023 12:43 PM EDT [place] [address] HCT 39.4(L) 40.0 - 48.4 % 12/04/2023 12:[address] EDT [address] MCV 92.9 82.0 - 99.5 fL 12/04/2023 12:43 PM EDT [place] [address] MCH 30.7 27.0 - 34.0 pg 12/04/2023 12:43 PM EDT [place] [address] MCHC 33.0 32.0 - 36.0 g/dL 12/04/2023 12:43 PM EDT [place] [address] RDW 13.8 11.5 - 15.5 % 12/04/2023 12:[address]T [address] PLT 140 140 - 400 K/uL 12/04/2023 12:43 PM EDT [address] MPV 10.7 6.6 - 11.1 fL 12/04/2023 12:43 PM EDT [facility] 56 Blood Venous blood specimen / Unknown Venipuncture / Unknown 12/04/2023 12:39 PM EDT 12/04/2023 12:39 PM EDT Stan Parra MD LAB BLOOD O RDERABLES [facility] [place] 56-02 [address] [place] [address] documented in this encounter Visit Diagnoses Diagnosis Malignant neoplasm of prostate (HCC) Malignant neoplasm of prostate Anemia, unspecified type Encounter for long-term (current) [...] the patient have Health Care Power of Corporate Strategy Analyst? Yes, not currently available Care Teams Ice Cream Mixer Relationship Specialty Start Date End Date Kaz Rivas III, MD [facility] [address] PCP - General 10/25/1995 documented as of this encounter
--- OUTSIDE RECORDS SUMMARY | 2024-01-26 10:42 | External Medical Summary | Summary of Care ---
Author Name Unknown Organization [facility] Address [address] [place] [address] Phone [phone] Care Team Providers Care Printing Gray Cloth Tender Name Role Phone Evelyn FRANZ MD, Kaz Canela Primary Care Provider [phone] Reason for Visit * Reason Comments Medication Management Encounter Details Date Type Department Care Team (Late st Contact Info) Description 12/07/2023 9:30 AM EDT Pharmacy Pharmacy Hematology Oncology [facility] [address] [place] [address] [facility] [place] [facility] Hem/Onc [address] [place] [address] Malignant neoplasm of prostate (HCC)* Allergies Active Allergy Reactions Criticality Noted Date Comments Levofloxacin Muscle pain 02/07/2018 Oxycodone Nausea/vomiting 02/07/2018 documented as of this encounter (statuses as of 12/05/2023) Medications Medication Sig Dispensed Refills Start Date [...] as of this encounter (statuses as of 12/05/2023) Active Problems Problem Noted Date Diagnosed Date [...] as of this encounter (statuses as of 12/05/2023) Resolved Problems Problem Noted Date Diagnosed Date Resolved Date Supraclavicular lymphadenopathy 02/11/2016 01/02/2018 Screening for prostate cancer 04/15/2003 05/20/2008 Overview: Resolved per Screening Diagnosis Protocol #6 Acute cholecystitis 11/25/2002 05/07/19 19 Diaphragmatic hernia 019 documented as of this encounter (statuses as of 12/05/2023) Immunizations Name Administration Dates Next Due COVID-19 [...] this encounter Progress Notes * Renetta Pagan, [facility] - 12/05/2023 1:44 PM EDT MEDICATION THERAPY MANAGEMENT ABIRATERONE TREATMENT PROGRESS NOTE Piyush López Fadi [phone] Patient Phone Numbers Preferred Lab: [facility] [place] [facility] Communication: Spoke to: Patient Treatment: Medication: Abiraterone (Zytiga) Indication/Staging/Diagnosis [facility] / C61 Dose: 250mg daily ( 07/17/22) Administration: with food Start Date: 06/05/22 Primary Engine Hostler/Oncologist: Dr. Parar Additional Therapy: Prednisone 5mg daily Lupron Ondansetron Treatment History: 05/2018: bicalutamide 06/05/18-09/10/20; 05/2022-present: Lupron 08/19/18-10/14/18: RT Interval History: Per OV 09/28/23, continue abiraterone 250mg daily with breakfast Reports stable BP < 150/90 Reports intermittent joint and muscle pain resolved with APAP No other concerns, tolerating therapy well Changes to medication list since last visit? No Assessment and Plan: Follow up labs and BP stable Continue BP monitoring and contact office if BP > 150/90 Continue APAP (MDD 3000mg) as needed for pain. Pt understands to contact office if pain increases in frequency or severity Continue current therapy and monthly labs (next due with OV) Assessment of compliance: compliant Assessment of adverse effects attributed to drug therapy: Edema/fluid retention - absent HTN - absent Joint swelling or discomfort - absent Arthralgias/Myalgias - present Diarrhea/Constipation - absent Dose adjustment needed based on lab or adverse drug reaction? No Follow up: 1 month OV/labs; 2 months MTM with labs Renetta Pagan, PharmD, BCOP Clinical Pharmacist, [facility] Oral Chemotherapy [facility] 12/05/2023, 1:53 PM Monitoring Parameters: Estimated CrCl Serum creatinine: 0.9 mg/dL 12/04/23 1239 Estimated creatinine clearance: 80.2 mL/min Hepatitis panel Latest Reference Range & [...] Pertinent labs: Latest Reference Range & Units 09/28/23 12:44 10/25/23 10:37 12/04/23 12:39 Albumin 3.8 - 5.0 g/dL 4.0 3.9 4.0 AST 10 - 50 U/L 25 23 27 ALT 10 - 50 U/L 14 7 (L) 8 (L) Alkaline Phosphatase 35 - 130 U/L 78 73 75 Bilirubin, Total <=1.2 mg/dL 0.5 0.5 0.6 09/28/2023 11/14/2023 12/03/2023 BP AND WT. Systolic 139 143 130 Diastolic 75 75 86 Time Spent on Encounter: 6 - 10 minutes Encounter Group: Oncology Encounter Interventions Item Category: Oral Chemotherapy Abiraterone Problem/Rationale: Safety: Needs additional monitoring - Medication Requires monitoring Pharmacist Intervention(s): Lab monitoring, Non-pharmacological intervention provided, and Toxicitymonitoring Magnitude of Intervention: Monitoring with direction (Level 1) Second Item Second Item Category: Analgesics Acetaminophen Problem/Rationale: Effectiveness: Needs additional monitoring - Medication Requires monitoring Pharmacist Intervention(s): Toxicity monitoring Magnitude of Intervention: Monitoring with direction (Level 1) documented in this encounter Plan of Treatment Upcoming Encounters Date Type Department Care Team (Late st Contact Info) Description 12/31/2023 12:00 PM EDT Laboratory Laboratory, [address] [phone] [facility], Lab [address] [place] [address] 12/31/2023 1:00 PM EDT Telemedicine Hematology/Oncology, [address] [address] Stan Parra MD [address] [place] [address] Buffy, Telemed [facility] Hem Onc Clinic [address] [place] [address] 12/31/2023 1:30 PM EDT Immunization/Injection Hematology/Oncology Treatment, [address] [address] [facility], Chair2 Hem Onc [address] [place] [address] 02/01/2024 9:30 AM EST Pharmacy Pharmacy Hematology Oncology [facility] [address] [place] [address] [facility] [place] [facility] Hem/Onc [address] [place] [address] 06/04/2024 8:00 AM EDT Office Visit [facility] 200 [facility] [place] [address] Kaz Rivas III, MD 200 [facility] [place] [address] 07/15/2024 10:15 AM EDT Office Visit Urology [place] [address] [place] [address] Bradley Uriarte Jr., MD [address] [place] [address] 11/13/2024 1:00 PM EDT Office Visit Radiation Oncology, [facility] [address] [place] [address] Iovoli, Dragan Gavin MD [address] [place] [address] Scheduled Procedures Name Priority Associated [...] 09/28/2023, Additional history exists Colonoscopy 08/17/2026 08/17/2021, 06/0 10/2021, 03/09/2016, Additional history exists Colorectal Cancer Screening 08/17/2026 Lipid Panel 06/21/2028 06/22/2023, 10/0 04/2022, 04/14/2022, Additional history exists Pneumococcal Vaccine: [...] the patient have Health Care Power of Legal Stenographer? Yes, not currently available Care Teams Printing Gray Cloth Tender Relationship Specialty Start Date End Date Kaz Rivas III, MD [address] [place] [address] PCP - General 10/25/1995 documented as of this encounter
--- OUTSIDE RECORDS SUMMARY | 2024-01-26 10:42 | External Medical Summary ---
Author Name Unknown Address Unknown Organization [id number]:[facility] [address] [place] [address] Laboratory Report Ordering Provider Test Date Status JESÚS BESS 12/04/2023 12:39:16 Final Observation Date Value Abnormality Reference (Units ) Status BUN 12/04/2023 12:39:16 16 6-20 (mg/dL) Final Creatinine 12/04/2023 12:39:16 0.9 0.6-1.2 (mg/dL) Final Glomerular filtration rate/1.73 sq M.predicted [Volume Rate/Area] in Serum, Plasma or Blood by Creatinine-based formula (CKD-EPI) 12/04/2023 12:39:16 >90 >=60 (mL/min) Final eGFR is calculated based on the CKD-EPI 2020 equation. Sodium 12/04/2023 12:39:16 141 135-146 (m mol/L) Final Potassium 12/04/2023 12:39:16 4.1 3.5-5.1 (m mol/L) Final Cl 12/04/2023 12:39:16 106 98-107 (mm ol/L) Final CO2 12/04/2023 12:39:16 25 22-32 (mmo l/L) Final Anion gap 12/04/2023 12:39:16 10 7-15 (mmol /L) Final Glucose 12/04/2023 12:39:16 150 Above high normal 70 -120 (mg/dL) Final Albumin 12/04/2023 12:39:16 4.0 3.8-5.0 (g /dL) Final AST (Aspartate aminotransferase) 12/04/2023 12:39:16 27 10-50 (U/L) Fin al Alk Phos 12/04/2023 12:39:16 75 35-130 (U/ L) Final Bilirubin, Total 12/04/2023 12:39:16 0.6 <=1 .2 (mg/dL) Final Calcium 12/04/2023 12:39:16 9.4 8.4-10.2 ( mg/dL) Final Protein 12/04/2023 12:39:16 6.8 6.0-8.3 (g /dL) Final ALT (Alanine aminotransferase) 12/04/2023 12:39:16 8 Below low normal 10-50 (U/L) Final Performing Location [facility]- [address] [place] [address]
--- OUTSIDE RECORDS SUMMARY | 2024-01-26 10:42 | External Medical Summary ---
Author Name Unknown Address Unknown Organization K09:[facility] [place] [address] Laboratory Report Ordering Provider Test Date Status JESÚS BESS 12/04/2023 12:39:16 Final Observation Date Value Abnormality Reference (Units ) Status WBC, Total 12/04/2023 12:39:16 6.04 4.00-10.8 0 (K/uL) Final RBC 12/04/2023 12:39:16 4.24 4.50-5.25 (M/uL) Final Hemoglobin 12/04/2023 12:39:16 13.0 Below low normal 14 .0-16.8 (g/dL) Final HCT 12/04/2023 12:39:16 39.4 Below low normal 40. 0-48.4 (%) Final MCV 12/04/2023 12:39:16 92.9 82.0-99.5 (fL) Final MCH 12/04/2023 12:39:16 30.7 27.0-34.0 (pg) Final MCHC 12/04/2023 12:39:16 33.0 32.0-36.0 (g/dL) Final RDW 12/04/2023 12:39:16 13.8 11.5-15.5 (%) Final Platelets 12/04/2023 12:39:16 140 140-400 (K /uL) Final MPV 12/04/2023 12:39:16 10.7 6.6-11.1 ( fL) Final Performing Location [facility] [place] [address]
--- OUTSIDE RECORDS SUMMARY | 2024-01-26 10:42 | External Medical Summary | Summary of Care ---
Author Name Unknown Organization [facility] Address [address] [place] [address] Phone [phone] Care Team Providers Care Regional Clinical Research Associate Name Role Phone Evelyn FRANZ MD, Kaz Canela Primary Care Provider [phone] Reason for Visit * Reason Comments Medication Management Encounter Details Date Type Department Care Team (Late st Contact Info) Description 12/04/2023 9:30 AM EDT Pharmacy Pharmacy Hematology Oncology [facility] [address] [place] [address] [facility] [place] [facility] Hem/Onc [address] [place] [address] Malignant neoplasm of prostate (HCC)* Allergies Active [...] Progress Notes * Caro Silva OSA - 12/04/2023 9:30 AM EDT MEDICATION THERAPY MANAGEMENT ABIRATERONE TREATMENT PROGRESS NOTE Piyush López Fadi [phone] Patient Phone Numbers Preferred Lab: [facility] Communication: Spoke to: Patient Treatment: Medication: Abiraterone (Zytiga) Indication/Staging/Diagnosis Code: mCSPC / Stage IIIC / C61 Dose: 250mg daily ( 07/17/22) Administration: with food Start Date: 06/05/22 Primary District Sales Leader/Oncologist: Dr. Parra Patient will go in the next day or two for labs via walk in [facility] Pharmacy Hematology Oncology Oral Chemotherapy Clinic Medication Therapy Disease Management 12/04/23 11:34 AM Time Spent on Encounter: 6 - 10 [...] 9:30 AM EDT Pharmacy Pharmacy Hematology Oncology [place] [address] [place] [address] [facility] [place] [facility] Hem/Onc [facility] [place] [address] 12/31/2023 12:00 PM EDT Laboratory Laboratory, [address] [phone] [facility], Lab [address] [place] [address] 12/31/2023 1:00 PM EDT Telemedicine Hematology/Oncology, [address] [address] Stan Parra MD [facility] [place] [address] Cart, Telemed [facility] Hem Onc Clinic [address] [place] [address] 12/31/2023 1:30 PM EDT Immunization/Injection Hematology/Oncology Treatment, [address] [address] [facility], Chair2 Hem Onc [address] [place] [address] 06/04/2024 8:00 AM EDT Office Visit [facility] [place] [place] [address] [place] [address] Kaz Rivas III, MD 200 [facility] [place] [address] 07/15/2024 10:15 AM EDT Office Visit Urology [place] [address] [place] [phone] Bradley Uriarte Jr., MD [address] [place] [address] 11/13/2024 1:00 PM EDT Office Visit Radiation Oncology, [facility] [address] [place] [address] Iovoli, Dragan Gavin MD [address] [place] [address] Scheduled Procedures Name Priority Associated [...] the patient have Health Care Power of Dragger Out? Yes, not currently available Care Teams Regional Clinical Research Associate Relationship Specialty Start Date End Date Kaz Rivas III, MD [address] [place] [address] PCP - General 10/25/1995 documented as of this encounter
--- OUTSIDE RECORDS SUMMARY | 2024-01-26 10:42 | External Medical Summary ---
Author Name Unknown Address Unknown Organization K01:[facility] [place] - [address] [place] [address] Laboratory Report Ordering Provider Test Date Status HAWK GRANDA III 12/04/2023 12:39:16 Final Observation Date Value Abnormality Reference (Units ) Status Iron 12/04/2023 12:39:16 63 45-176 (ug /dL) Final Iron-binding capacity 12/04/2023 12:39:16 276 250-425 (ug/dL) Final Transferrin Sat % 12/04/2023 12:39:16 23 15 -55 (%) Final Performing Location [facility] [place] - [address] [place] [address]
--- OUTSIDE RECORDS SUMMARY | 2024-01-26 10:42 | External Medical Summary ---
Author Name Unknown Address Unknown Organization K01:[facility] [place] - [address] [place] [address] Laboratory Report Ordering Provider Test Date Status HAWK GRANDA III 12/04/2023 12:39:16 Final Observation Date Value Abnormality Reference (Units ) Status Vitamin B12 12/04/2023 12:39:16 872 637-2940 (pg/mL) Final Performing Location LABORATORY C - [address] [place] [address]
--- OUTSIDE RECORDS SUMMARY | 2024-01-26 10:42 | External Medical Summary | Summary of Care ---
Author Name Unknown Organization [facility] Address [address] [place] [address] Phone [phone] Care Team Providers Care Manager Benefit Name Role Phone Evelyn FRANZ MD, Kaz Canela Primary Care Provider [phone] Reason for Visit * Reason Comments Patient Assistance Program Encounter Details Date Type Department Care Team (Late st Contact Info) Description 06/07/2022 Documentation Hematology Oncology [facility] [address] [place] [address] Stan Parra MD [address] [place] [address] Allergies Active Allergy Reactions Criticality [...] Auth Expirin06/05/2025 Pharmacy/Company: [facility] Phone number: IM neurology technician [place] Location: [facility] Estimated Delivery Date: p - awaiting delivery date + script Appointment Date: 12/31/2023 Ordered Date: 12/14/2023 Delivery Address: [facility] Attn: 6th floor IIP POM [address] [facility] [place] [address] RX: Eligard Dose: 22.5mg 3 mo Quantity: [...] - 09/21/2023 2:42 PM EDT Krysta Lr, lead sales consultant 09/21/2023 14:29 Medication received 09/21/23 Estimated Delivery Date: [facility] - order med 12/15/2023 * Jordan Andrade OSA - 09/14/2023 7:42 AM EDT POM Reason: Insurance mandated Insurance Info: Aetna Medicare Advantage Auth Expirin06/05/2025 Pharmacy/Company: [facility] Phone number: IM neurology technician [place] Location: [facility] Estimated Delivery Date: [facility] - 09/21/2023 Appointment Date: 09/28/2023 Ordered Date: 09/14/2023 Delivery Address: Attn: 6th floor IIP POM [address] [place] [address] RX: Eligard Dose: 22.5mg 3 mo Quantity: [...] - 06/14/2023 3:07 PM EDT Krysta Lr lead sales consultant 06/14/2023 12:40 Received 1 Eligard 22.5 Kit 06/14/23 Estimated Delivery Date: [facility] - order med 09/14/2023 * Jordan Andrade OSA - 06/05/2023 9:19 AM EDT POM Reason: Insurance mandated Insurance Info: Aetna Medicare Advantage Auth Expirin06/05/2025 Pharmacy/Company: [facility] Phone number: IM neurology technician [place] Location: [facility] Estimated Delivery Date: [facility] - 06/14/2023 Appointment Date: 06/22/2023 Ordered Date: 06/05/2023 Delivery Address: Attn: 6th floor IIP [facility] [address] [facility] [place] [address] RX: Eligard Dose: 22.5mg 3 mo Quantity: [...] C61 Prostate Cancer * Mary Jo Gar lead sales consultant - 03/21/2023 3:56 PM EST 03/21/2023 - Received medication. Defer to 05/16/2023 to order refill. Estimated Delivery Date: received 03/21/2023 - [facility] Appointment Date: 03/16/2023 Ordered Date: 03/02/2023 Delivery Address: Attn: 6th floor IIP [facility] [address] [place] [place] [address] RX: Eligard Dose: 22.5mg 3 mo Quantity: 1 Manufactured Supplied: No Refills remaining: Injection Number for this order: Next Refill: 05/16/2023 Upcoming Appt: 05/30/2023 * Jordan Andrade OSA - 03/14/2023 2:29 PM EST 03/15/2023 - "Caterina, our buying team said they are waiting to hear from a sales representative business courses from [facility] regarding the ordering issue but we [...] Mcwilliams 03/14/2023 - Per Vida Kelly at [facility] "Piyush Fadi Iselagard did not come in today [facility] Vida Mcwilliams is working with [...] Info: Aetna Medicare Advantage Auth Expirin06/05/2025 Pharmacy/Company: [facility] Phone number: IM neurology technician [place] Location: [facility] Estimated Delivery Date: 03/21/2023 - [facility] Appointment Date: 03/16/2023 Ordered Date: 03/02/2023 Delivery Address: Attn: 6th floor IIP POM [address] [place] [address] RX: Eligard Dose: 22.5mg 3 mo Quantity: [...] defer to 03/02/2023 to order Eligard from [facility] * Galina Barnett OSA - 12/06/2022 2:21 PM EDT Krysta Lr lead sales consultant 12/06/2022 13:58 | Received 1 kit of Eligard 12/06/2022 Estimated Delivery Date: Received 12/06/2022-P [facility] 12/06/2022, 2:21 PM * Mary Jo Gar lead sales consultant - 11/27/2022 9:02 AM EDT 11/27/2022 - IM'd [facility] to fill. Medication ordered. Defer to 12/06/2022 for delivery. POM Reason: Insurance mandated Insurance Info: Aetna Medicare Advantage Auth Expirin06/05/2025 Pharmacy/Company: [facility] Phone number: IM neurology technician [place] Location: [facility] Estimated Delivery Date: 12/06/2022 - [facility] Appointment Date: 12/11/2022 Ordered Date: 11/27/2022 Delivery Address: Attn: 6th floor IIP POM [address] [place] [address] RX: Eligard Dose: 22.5mg 3 mo Quantity: [...] 4 DX: C61 Prostate Cancer [facility] 11/27/2022, 1:19 PM * Mary Jo Gar lead sales consultant - 11/20/2022 12:01 PM EDT 11/20/2022 - Defer to 01/27/2023 to order refill. [facility] 11/20/2022, 12:02 PM * Mary Jo Gar lead sales consultant - 08/31/2022 10:15 AM EDT 09/08/2022 - Received medication per pharmacy staff. Defer 11/20/2022 for refill. 08/31/2022 - IM'd [facility] for refill. Defer to 09/07/2022 for delivery. POM Reason: Insurance mandated Insurance Info: Aetna Medicare Advantage Auth Expirin06/05/2025 Pharmacy/Company: [facility] Phone number: IM neurology technician [place] Location:[facility] Estimated Delivery Date: received 09/07/2022 - [facility] Appointment Date: 09/11/2022 Ordered Date:08/31/2022 Delivery Address:Attn: 6th floor IIP POM [address] [place] [place] [address] RX:Eligard Dose:22.5mg 3 mo Quantity:1 Manufactured Supplied:No [...] x 4 DX:C61 Prostate Cancer [facility] 08/31/2022, 10:18 AM * Liza Hoff OSA - 06/15/2022 2:56 PM EDT Estimated Delivery Date: Received 06/15/2022 - [facility] * Mary Jo Gar lead sales consultant - 06/14/2022 11:44 AM EDT 06/14/2022 - IM'd [facility] to fill script. Defer to 06/15/2022 for delivery. POM Reason: Insurance mandated Insurance Info: Aetna Medicare Advantage Auth Expirin06/05/2025 Pharmacy/Company: [facility] Phone number: IM neurology technician [place] Location: [facility] Estimated Delivery Date: 06/15/2022 - [facility] Appointment Date: 06/16/2022 Ordered Date:06/14/2022 Delivery Address: Attn: 6th floor IIP POM [address] [place] [address] RX: Eligard Dose: 22.5mg 3 mo Quantity: [...] 4 DX: C61 Prostate Cancer [facility] 06/14/2022, 11:50 AM * Galina Barnett OSA - 06/07/2022 9:47 AM EDT 06/07/2022- Reached out to Alba Iqbal for test claim POM Reason: Insurance Info: Auth Expiring: Pharmacy/Company: Phone number: [place] Location: [facility] Estimated Delivery Date: TBD Appointment Date: Ordered Date: Delivery Address: Attn: 6th floor [facility] [address] [facility] [address] RX: Eligard Dose: 22.5mg 3 mo Quantity: [...] 4 DX: C61 Prostate Cancer [facility] 06/07/2022, 10:14 AM documented in this encounter Plan of Treatment Upcoming Encounters Date Type Department Care Team (Late st Contact Info) Description 12/31/2023 12:00 PM EDT Laboratory Laboratory, [address] [address] [facility], Lab [address] [place], [place] [address] [address] 12/31/2023 1:00 PM EDT Telemedicine Hematology/Oncology, [address] [place] [address] Stan Parra MD [address] [place] [address] Dawna Baered [facility] [address] [place] [address] 12/31/2023 1:30 PM EDT Immunization/Injection Hematology/Oncology Treatment, [facility] [address] [place] [address] [facility], Chair2 Hem Onc [address] [place] [address] 02/01/2024 9:30 AM [facility] Pharmacy Pharmacy Hematology Oncology [facility] [address] [place] [address] [facility], [facility] Hem/Onc [address] [place] [address] 06/04/2024 8:00 AM EDT Office Visit [facility] [address] [place] [address] Kaz Rivas III, MD [address] [place] [address] 07/15/2024 10:15 AM EDT Office Visit Urology [place] [address] [facility] [address] [place] [address] [place] Uriarte Jr., MD [address] [place] [address] 11/13/2024 1:00 PM EDT Office Visit Radiation Oncology, [facility] [address] [place] [address] IovoliDragan MD [address] [place] [address] Scheduled Procedures Name Priority Associated [...] patient have Health Care Power of Senior Air Director? Yes, not currently available Care Teams Manager Benefit Relationship Specialty Start Date End Date Kaz Rivas III, MD 200 [place] [address] PCP - General 10/25/1995 documented as of this encounter
--- OUTSIDE RECORDS SUMMARY | 2024-01-26 10:42 | External Medical Summary ---
Author Name Unknown Address Unknown Organization K01:LABORATORY [facility] - [facility] [address] [facility] [address] Laboratory Report Ordering Provider Test Date Status GONZALO YBARRA 11/16/2023 15:50:04 Final Observation Date Value Abnormality Reference (Units ) Status Color of Urine by Auto 11/16/2023 15:50:04 Yellow Colorless, Light Yellow, Yellow, Dark Yellow Final Clarity, Urine 11/16/2023 15:50:04 Clear Clear Final Glucose [Mass/volume] in Urine by Automated test strip 11/16/2023 15:50:04 Negative Negative (mg/dL) Final Bilirubin.total [Presence] in Urine by Automated test strip 11/16/2023 15:50:04 Negative Negative Final Ketones [Mass/volume] in Urine by Automated test strip 11/16/2023 15:50:04 Negative Negative (mg/dL) Final Specific gravity, Urine 11/16/2023 15:50:04 1.028 1.003-1.030 Final Hemoglobin [Presence] in Urine by Automated test strip 11/16/2023 15:50:04 Negative Negative Final pH, Urine 11/16/2023 15:50:04 5.5 5.0-7.5 (Units) Final Protein [Mass/volume] in Urine by Automated test strip 11/16/2023 15:50:04 Negative Negative (mg/dL) Final Urobilinogen [Mass/volume] in Urine by Automated test strip 11/16/2023 15:50:04 Normal Normal (mg/dL) Final Nitrite [Presence] in Urine by Automated test strip 11/16/2023 15:50:04 Negative Negative Final Leukocyte esterase [Presence] in Urine by Automated test strip 11/16/2023 15:50:04 Negative Negative Final Annotation Comment 11/16/2023 15:50:04 Final Screen negative - Microscopi c not performed. Performing Location LABORATORY [facility] - [address] [facility] [address]
--- OUTSIDE RECORDS SUMMARY | 2024-01-26 10:42 | External Medical Summary | Summary of Care ---
Author Name Unknown Organization [facility] Address [address] [place] [address] Phone [phone] Care Team Providers Care Front Edger Name Role Phone Evelyn FRANZ MD, Kaz Canela Primary Care Provider [phone] Reason for Visit * Reason Comments Follow Up Encounter Details Date Type Department Care Team (Late st Contact Info) Description 11/16/2023 3:30 PM EDT Office Visit Urology Kerri Rob[place] [address] [place] [address] [place] [address] Sherlyn Perez PA-C [address] [place] [address] Scrotal pain*; Dysuria; Prostate cancer (HCC) Allergies [...] Description 12/03/2023 9:00 AM EDT Office Visit [facility] [place] 200 [facility] [place] [address] Kaz Rivas III, MD 200 [place] [address] 12/04/2023 9:30 AM EDT Pharmacy Pharmacy Hematology Oncology [place] [address] [place] [address] [facility], [facility] Hem/Onc [facility] [address] 12/31/2023 12:00 PM EDT Laboratory Laboratory, [address] [id number] [facility], Lab [address] [place] [address] 12/31/2023 1:00 PM EDT Telemedicine Hematology/Oncology, [address] [address] Stan Parra MD [address] [place] [address] Cart, Telemed [facility] Hem Onc Clinic [address] [place] [address] 12/31/2023 1:30 PM EDT Immunization/Injection Hematology/Oncology Treatment, [address] [address] [facility], Chair2 Hem Onc [address] [place] [address] 07/15/2024 10:15 AM EDT Office [place] [address] [place] [address] [place], [place] [address] [place] Uriarte Jr., MD [address] [place] [address] 11/13/2024 1:00 PM EDT Office Visit Radiation Oncology, [facility] [address] [place] [address] Iovoli, Dragan Gavin MD [address] [place] [address] Scheduled Orders Name Type Priority [...] the patient have Health Care Power of Substation Wireman? Yes, not currently available Care Teams Front Edger Relationship Specialty Start Date End Date Kaz Rivas III, MD [address] [place] [address] PCP - General 10/25/1995 documented as of this encounter
--- OUTSIDE RECORDS SUMMARY | 2024-01-26 10:42 | External Medical Summary | Summary of Care ---
Author Name Unknown Organization 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 4 Kit 10/03/2022 4 Discontinue d(Refill) documented as of this [...] Miscellaneous Notes * Telephone Encounter - Zenia Elena MD - 12/14/2023 11:07 AM EDTSigned Prescriptions: Disp Refills Eligard 22.5 MG Subcutaneous Kit (Leuproli*4 Kit 0 Sig: Inject 22.5 mg under the skin every 3 months for 4 doses. Authorizing Provider: ZENIA ELENA * Telephone Encounter - Renetta Pagan [facility] - 12/14/2023 9:15 AM EDT Pending Prescriptions: Disp Refills Eligard 22.5 MG Subcutaneous Kit (Leuproli*4 Kit 0 Sig: Inject 22.5 mg under the skin every 3 months for 4 doses. documented in this encounter Plan of Treatment Upcoming Encounters Date Type Department Care Team (Late st Contact Info) Description 12/31/2023 12:00 PM EDT Laboratory Laboratory, [address] [phone] [facility], Lab [address] [place] [address] 12/31/2023 1:00 PM EDT Telemedicine Hematology/Oncology, [address] [address] Stan Parra MD [address] [place] [address] Cart, Telemed [facility] Hem Onc Clinic [address] [place] [address] 12/31/2023 1:30 PM EDT Immunization/Injection Hematology/Oncology Treatment, [address] [id number] [facility], Chair2 Hem Onc [address] [place] [address] 02/01/2024 9:30 AM [facility] Pharmacy Pharmacy Hematology Oncology [place] [address] [place] [address] [facility] Hem/Onc [address] [facility], [place] [address] 06/04/2024 8:00 AM EDT Office Visit Family Practice [place] 200 [facility] [place] [address] Kaz Rivas III, MD 200 [facility] [place] [address] 07/15/2024 10:15 AM EDT Office Visit Urology [place] [address] [place] [address] [place] Uriarte Jr., MD [address] [place] [address] 11/13/2024 1:00 PM EDT Office Visit Radiation Oncology, [facility] [address] [place] [address] IovoliDragan MD [address] [place] [address] Scheduled Procedures Name Priority Associated [...] Diagnoses Diagnosis 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 Yes, not currently available Care Teams Hand Grinder Relationship Specialty Start Date End Date Kaz Rivas III, MD 200 [facility] [place] [address] PCP - General 10/25/1995 documented as of this encounter
--- OUTSIDE RECORDS SUMMARY | 2024-01-26 10:43 | External Medical Summary | Summary of Care ---
Author Name Unknown Organization [facility] Address [address] [place] [address] Phone [phone] Care Team Providers Care Security Operations Center Operator Name Role Phone Evelyn FRANZ MD, Kaz Canela Primary Care Provider [phone] Reason for Visit * Reason Comments Outpatient Testing Encounter Details Date Type Department Care Team (Late st Contact Info) Description 10/25/2023 10:30 AM EDT Laboratory Laboratory [facility] [place] [address] [place] [phone] [place], Lab [address] [place] [address] Malignant neoplasm of prostate (HCC) Allergies Active Allergy Reactions Criticality Noted Date Comments Levofloxacin Muscle pain 02/07/2018 Oxycodone Nausea/vomiting 02/07/2018 documented as of this encounter (statuses as of 10/25/2023) Medications Medication Sig Dispensed Refills Start Date [...] OralHS, Indications: in evening, Reported on 06/12/2023 Apixaban 5 MG Oral Tablet (Eliquis) TAKE 1 TABLET TWICE A DAY 180 Tablet 1 05/14/2023 Active predniSONE 5 MG Oral Tablet (Deltasone)Indicat [...] IN WATER 120 Tablet 5 10/19/2023 Active documented as of this encounter (statuses as of 10/25/2023) Active Problems Problem Noted Date Diagnosed Date [...] as of this encounter (statuses as of 10/25/2023) Resolved Problems Problem Noted Date Diagnosed Date Resolved Date Supraclavicular lymphadenopathy 02/11/2016 01/02/2018 Screening for prostate cancer 04/15/2003 05/20/2008 Overview: Resolved per Screening Diagnosis Protocol #6 Acute cholecystitis 11/25/2002 05/07/19 19 Diaphragmatic hernia 019 documented as of this encounter (statuses as of 10/25/2023) Immunizations Name Administration Dates Next Due COVID-19 [...] t, High Dose, No Preserve, IM 12/01/2016 TDAP, Age 7 and older, IM (Adacel) [...] Care Team (Late st Contact Info) Description 10/26/2023 9:30 AM EDT Pharmacy Pharmacy Hematology Oncology [facility] [address] [place] [address] [facility] Hem/Onc [address] [place] [address] 11/06/2023 9:45 AM EDT Imaging Radiology [address] [facility] [place] [address] 11/06/2023 11:00 AM EDT Imaging Radiology [address] 132 [facility] [place] [address] 11/14/2023 1:00 PM EDT Office Visit Radiation Oncology, [facility] [address] [place] [address] IovoliDragan MD [address] [place] [address] 12/03/2023 9:00 AM EDT Office Visit Family Practice [facility] Herm[place] 200 [facility] [place] [address] Kaz Rivas III, MD 200 [facility] [place] [address] 12/31/2023 12:00 PM EDT Laboratory Laboratory, [address] [phone] [facility], Lab [address] [place] [address] 12/31/2023 1:00 PM EDT Telemedicine Hematology/Oncology, [address] [address] Stan Parra MD [address] [place], [place] [phone] Cart, Telemed [facility] Hem Onc Clinic [address] [place] [address] 12/31/2023 1:30 PM EDT Immunization/Injection Hematology/Oncology Treatment, [address] [address] [facility], Chair2 Hem Onc [address] [place] [address] Pending Results Name Type Priority Associated Diagnoses Date /Time COMPREHENSIVE METABOLIC PANEL Lab STAT Malignant neoplasm of prostate (HCC) 10/25/2023 10:37 AM EDT Scheduled Procedures Name Priority Associated Diagnoses Date/Ti me COLONOSCOPY FLEXIBLE PROXIMA L DIAGNOSTIC Recall History of colonic polyps Health Maintenance Due Date Last Done Comments Cologuard 07/20/1995 Sigmoidoscopy 07/20/1995 Fecal Occult Blood Test 06/15/2002 06/15/2001 Adult Wellness Visit 2016 Depression Screening 01/04/2020 01/03/2019 DTaP,Tdap,and Td Vaccines (2 - Td or Tdap) 08/25/2020 08/25/2010 COVID-19 Vaccine (4 - 24 season) 2022 04/06/2021, 04/06/2021, 05/21/2020, Additional history exists Influenza Vaccine (FLU shot) (#1) 2023 01/11/2022, 12/18/2019, 11/22/2018, Additional history exists GFR 09/27/2024 09/28/2023, 08/10, 07/23/2023, Additional history exists Albumin/Creatinine Ratio 10/05/2024 10/05/2021 Colonoscopy 08/17/2026 08/17/2021, 10/2021, 03/09/2016, Additional history [...] Date/Time Associated Diagnosis Comments DIFFERENTIAL, AUTOMATED STAT 10/25/2023 10:37 AM EDT Malignant neoplasm of prostate (HCC) CBC STAT 10/25/2023 10:37 AM EDT Malignant neoplasm of prostate (HCC) CBC STAT 10/25/2023 10:37 AM EDT Malignant neoplasm of prostate (HCC) documented in this encounter Results * (ABNORMAL) DIFFERENTIAL, AUTOMATED (10/25/2023 10:37 AM EDT) WBC 5.96 4.00 - 10.80 K/uL 10/25/2023 10:41 AM EDT [facility] 56-02 Neutrophils % 80.4(H) 40.0 - 75.0 % 10/25/2023 10:41 AM EDT [facility] 56-02 Lymphocytes % 10.6(L) 18.0 - 42.0 % 10/25/2023 10:41 AM EDT [facility] 56-02 Monocytes % 8.1 1.0 - 11.0 % 10/25/2023 10:41 AM EDT [facility] 56-02 Eosinophils % 0.7 0.0 - 6.0 % 10/25/2023 10:41 AM EDT [facility] 56-02 Basophils % 0.2 0.0 - 2.0 % 10/25/2023 10:41 AM EDT [facility] 56-02 Absolute Neutrophils 4.80 1.80 - 7.70 K/uL 10/25/2023 10:41 AM EDT [facility] 56-02 Absolute Lymphocytes 0.63(L) 1.00 - 4.80 K/ul 10/25/2023 10:41 AM EDT [facility] 56-02 Absolute Monocytes 0.48 0.00 - 1.10 K/uL 10/25/2023 10:41 AM EDT [facility] 56-02 Absolute Eosinophils 0.04 0.00 - 0.70 K/uL 10/25/2023 10:41 AM EDT [facility] 56-02 Absolute Basophils 0.01 0.00 - 0.20 K/uL 10/25/2023 10:41 AM EDT [facility] 56-02 Blood Venous blood specimen / Unknown Venipuncture / Unknown 10/25/2023 10:37 AM EDT 10/25/2023 10:37 AM EDT Stna Parra MD LAB BLOOD O RDERABLES [facility] 56-[address] [place] [address] * (ABNORMAL) CBC (10/25/2023 10:37 AM EDT) WBC 5.96 4.00 - 10.80 K/uL 10/25/2023 10:41 AM EDT [facility] 56 RBC 4.15 4.50 - 5.25 M/uL 10/25/2023 10:41 AM EDT [address] HGB 12.5(L) 14.0 - 16.8 g/dL 10/25/2023 10:41 AM EDT [facility] 56 HCT 37.7(L) 40.0 - 48.4 % 10/25/2023 10:41 AM EDT [address] MCV 90.8 82.0 - 99.5 fL 10/25/2023 10:41 AM EDT [address] MCH 30.1 27.0 - 34.0 pg 10/25/2023 10:41 AM EDT [address] MCHC 33.2 32.0 - 36.0 g/dL 10/25/2023 10:41 AM EDT [address] RDW 13.9 11.5 - 15.5 % 10/25/2023 10:41 AM EDT [facility] 56 PLT 154 140 - 400 K/uL 10/25/2023 10:41 AM EDT [facility] 56 MPV 9.9 6.6 - 11.1 fL 10/25/2023 10:41 AM T [facility] 56 Blood Venous blood specimen / Unknown Venipuncture / Unknown 10/25/2023 10:37 AM EDT 10/25/2023 10:37 AM EDT Stan Parra MD LAB BLOOD O RDERABLES [facility] [address] [place] [address] documented in this encounter Visit Diagnoses Diagnosis [...] the patient have Health Care Power of Plaster Form Maker? Yes, not currently available Care Teams Security Operations Center Operator Relationship Specialty Start Date End Date Kaz Rivas III, MD 200 [facility] [place] [address] PCP - General 10/25/1995 documented as of this encounter
--- OUTSIDE RECORDS SUMMARY | 2024-01-26 10:43 | External Medical Summary | Summary of Care ---
Author Name Unknown Organization [facility] Address [address] [place] [address] Phone [phone] Care Team Providers Care Director Of Development And Marketing Name Role Phone Evelyn FRANZ MD, Kaz Canela Primary Care Provider [phone] Reason for Visit * Reason Comments Treatment Eligard * Episode Based Medications (Routine) - Authorized Specialty Diagnoses / Procedures Referred By Aj pendleton Referred To Contact Diagnoses Malignant neoplasm of prostate (HCC) Procedures CT LEUPROLIDE ACETATE SUSPNSION Stan Parra MD [address] [place] [address] [facility] Hem/Onc [facility] [address] [facility] [address] Referral ID Status Reason Start Date Expiration Date V isits Requested Visits Authorized [id number] Authorized 05/23/2022 06/05/2025 [id number] Encounter Details Date Type Department Care Team (Late st Contact Info) Description 09/28/2023 2:30 PM EDT Immunization/I njection Hematology/Oncology Treatment, [facility] [address] [facility] [place] [address] [facility], Chair3 Hem Onc [address] [facility] [place], [place] [id number] Malignant neoplasm of prostate (HCC)* Allergies Active Allergy Reactions Criticality Noted Date Comments Levofloxacin Muscle pain 02/07/2018 Oxycodone Nausea/vomiting 02/07/2018 documented as of this encounter (statuses as of 09/28/2023) Medications Medication Sig Dispensed Refills Start Date [...] needed for Nausea. 50 Tablet 06/16/2022 Active Sucralfate 1 GM Oral Tablet [...] the morning. 90 Tablet 3 08/03/2023 Active documented as of this encounter (statuses as of 09/28/2023) Active Problems Problem Noted Date Diagnosed Date [...] as of this encounter (statuses as of 09/28/2023) Resolved Problems Problem Noted Date Diagnosed Date Resolved Date Supraclavicular lymphadenopathy 02/11/2016 01/02/2018 Screening for prostate cancer 04/15/2003 05/20/2008 Overview: Resolved per Screening Diagnosis Protocol #6 Acute cholecystitis 11/25/2002 05/07/19 19 Diaphragmatic hernia 019 documented as of this encounter (statuses as of 09/28/2023) Immunizations Name Administration Dates Next Due COVID-19 [...] No 05/14/2023 Does the household have a [facility] source of income? (Household - for ages [...] Nursing Notes * Tamiko Gonzalez LPN - 09/28/2023 2:53 PM EDT [place] 4 Eligard given R abdomen. Patient left IVC by ambulating. Accompanied by Spouse. Voiced no complaints. Tamiko Gonzalez LPN 09/28/2023 2:53 PM documented in this encounter Plan of Treatment Upcoming Encounters Date Type Department Care Team (Late st Contact Info) Description 10/26/2023 9:30 AM EDT Pharmacy Pharmacy Hematology Oncology [facility] [address] [place] [address] [facility] Hem/Onc [address] [place] [address] 11/06/2023 9:45 AM EDT Imaging Radiology [facility] 1st [facility] [place] [address] [facility] [place] [address] 11/14/2023 1:00 PM EDT Office Visit Radiation Oncology, [facility] [address] [place] [address] IovoliDragan MD [address] [place] [phone] 12/03/2023 9:00 AM EDT Office Visit [facility] [address] [place] [address] Kaz Rivas III, MD [address] [place] [address] 12/31/2023 12:00 PM EDT Laboratory Laboratory, [address] [phone] [facility], Lab [address] [place] [address] 12/31/2023 1:00 PM EDT Telemedicine Hematology/Oncology, [address] [address] Stan Parra MD [address] [place] [address] Cart, Telemed [facility] Hem Onc Clinic [address] [place] [address] 12/31/2023 1:30 PM EDT Immunization/Injection Hematology/Oncology Treatment, [facility] [address] [address] [facility], Chair2 Hem Onc [address] [address] Scheduled Procedures Name Priority Associated Diagnoses Date/Ti me COLONOSCOPY FLEXIBLE PROXIMA L DIAGNOSTIC Recall History of colonic polyps Health Maintenance Due Date Last Done Comments Cologuard 07/20/1995 Sigmoidoscopy 07/20/1995 Fecal Occult Blood Test 06/15/2002 06/15/2001 Depression Screening 01/04/2020 01/03/2019 DTaP,Tdap,and Td Vaccines (2 - Td or Tdap) 08/25/2020 08/25/2010 COVID-19 Vaccine (4 - 2022- season) 2022 04/06/2021, 04/06/2021, 05/21/2020, Additional history exists Influenza Vaccine (FLU shot) (#1) 2023 01/11/2022, 12/18/2019, 11/22/2018, Additional history exists GFR 09/27/2024 09/28/2023, 08/10, 07/23/2023, Additional history exists Albumin/Creatinine Ratio 10/05/2024 10/05/2021 Colonoscopy 08/17/2026 08/17/2021, 10/2021, 03/09/2016, Additional history exists Colorectal Cancer Screening 08/17/2026 Lipid Panel 06/21/2028 06/22/2023, 04/2022, 04/14/2022, Additional history exists Pneumococcal Vaccine: 65+ Years Completed 01/02/2018, 01/12/2016 *BASELINE EKG FOR HTN Completed 04/25/2018 , 02/28/2016, 04/17/2014, Additional history exists Zoster Vaccines Completed 12/29/2019, 10/10, 11/30/2011 RETIRED [...] 22.5 mg 22.5 mg, Subcutaneous, ONCE, On Sun09/28/23 at 1515, For 1 dose Given 09/28/2023 2:50 PM EDT 22.5 mg Abdomen Right Upper documented in this encounter Advance Directives * [...] patient have Health Care Power of Manager [employer]ologics? Yes, not currently available Care Teams Director Of Development And Marketing Relationship Specialty Start Date End Date Kaz Rivas III, MD [address] [place] [address] PCP - General 10/25/1995 documented as of this encounter
--- OUTSIDE RECORDS SUMMARY | 2024-01-26 10:43 | External Medical Summary | Summary of Care ---
Author Name Unknown Organization [facility] Address [address] [place] [address] Phone [phone] Care Team Providers Care Nurse Informatics Educator Name Role Phone Evelyn FRANZ MD, Kaz Canela Primary Care Provider [phone] Reason for Visit * Reason Onset Date Comments Advice 10/22/2023 Fidel Encounter Details Date Type Department Care Team (Late st Contact Info) Description 10/22/2023 Telephone Hematology/Oncology, [address] [address] Services, Scheduling [address] [place] [address] Advice (Fidel ) Allergies Active Allergy Reactions Criticality Noted Date Comments Levofloxacin Muscle pain 02/07/2018 Oxycodone Nausea/vomiting 02/07/2018 documented as of this encounter (statuses as of 10/23/2023) Medications Medication Sig Dispensed Refills Start Date [...] as of this encounter (statuses as of 10/23/2023) Active Problems Problem Noted Date Diagnosed Date [...] as of this encounter (statuses as of 10/23/2023) Resolved Problems Problem Noted Date Diagnosed Date Resolved Date Supraclavicular lymphadenopathy 02/11/2016 01/02/2018 Screening for prostate cancer 04/15/2003 05/20/2008 Overview: Resolved per Screening Diagnosis Protocol #6 Acute cholecystitis 11/25/2002 05/07/19 19 Diaphragmatic hernia 019 documented as of this encounter (statuses as of 10/23/2023) Immunizations Name Administration Dates Next Due COVID-19 [...] Miscellaneous Notes * Telephone Encounter - Beverly Connolly RN - 10/23/2023 8:16 AM EDT Check-out Note OK for Eilgard Shot today, and q.3 months CBC with diff, CMP Q monthly, and follow with MTM Return to clinic with Fidel in 3 months with CBC/diff, CMP, PSA I called and spoke to pt and made him aware to continue monthly labs. Pt verbalized understanding. * Telephone Encounter - Alida Jorge OSA - 10/22/2023 4:34 PM EDT Caterina pt calling stated he was getting labs done monthly but on his chart he is scheduled for oct so he wants to make sure should he continue with monthly labs or is he okay to wait till oct? Please give pt a call back to advice Thank you documented in this encounter Plan of Treatment Upcoming Encounters Date Type Department Care Team (Late st Contact Info) Description 10/26/2023 9:30 AM EDT Pharmacy Pharmacy Hematology Oncology [facility] [address] [place] [address] [facility] [place] [facility] Hem/Onc [address] [place] [address] 11/06/2023 9:45 AM EDT Imaging Radiology [address] 132 [place] [address] 11/06/2023 11:00 AM EDT Imaging Radiology [address] [place] [address] 11/14/2023 1:00 PM EDT Office Visit Radiation Oncology, [facility] [address] [place] [address] IovoliDragan MD [address] [place] [phone] 12/03/2023 9:00 AM EDT Office Visit [facility] [address] [place] [address] Kaz Rivas III, MD [address] [place] [address] 12/31/2023 12:00 PM EDT Laboratory Laboratory, [address] [phone] [facility], Lab [address] [place] [address] 12/31/2023 1:00 PM EDT Telemedicine Hematology/Oncology, [address] [address] Stna Parra MD [address] [place] [address] Cart, Telemed [facility] Hem Onc Clinic [address] [place], [place] [address], [place] [address] 12/31/2023 1:30 PM EDT Immunization/Injection Hematology/Oncology Treatment, [facility] [address] [address] [facility], Chair2 Hem Onc [address] [address] Scheduled Procedures Name Priority Associated Diagnoses Date/Ti me COLONOSCOPY FLEXIBLE PROXIMA L DIAGNOSTIC Recall History of colonic polyps Health Maintenance Due Date Last Done Comments Cologuard 07/20/1995 Sigmoidoscopy 07/20/1995 Fecal Occult Blood Test 06/15/2002 06/15/2001 Adult Wellness Visit 2016 Depression Screening 01/04/2020 01/03/2019 DTaP,Tdap,and Td Vaccines (2 - Td or Tdap) 08/25/2020 08/25/2010 COVID-19 Vaccine ( - season) 2022 04/06/2021, 04/06/2021, 05/21/2020, Additional history [...] the patient have Health Care Power of Latexer? Yes, not currently available Care Teams Nurse Informatics Educator Relationship Specialty Start Date End Date Kaz Rivas III, MD [address] [place] [address] PCP - General 10/25/1995 documented as of this encounter
--- OUTSIDE RECORDS SUMMARY | 2024-01-26 10:43 | External Medical Summary | Summary of Care ---
Author Name Unknown Organization [facility] Address [address] [place] [address] Phone [phone] Care Team Providers Care Deputy Court Name Role Phone Evelyn FRAZN MD, Kaz Canela Primary Care Provider [phone] Reason for Visit * Reason Comments Follow Up Encounter Details Date Type Department Care Team (Late st Contact Info) Description 09/28/2023 2:00 PM EDT Telemedicine Hematology/Oncology, [facility] [address] [place], [place] [phone] Stan Parra MD [address] [place] [address] Cart, Telemed [facility] Hem Onc Clinic [address] [place] [address] Malignant neoplasm of prostate (HCC)*; Encounter to discuss test results; Encounter for medication monitoring; History of radiation therapy; Encounter for monitoring Lupron therapy; Use of leuprolide acetate (Lupron) Allergies Active Allergy Reactions Criticality Noted Date [...] Sign Reading Time Taken Comments Blood Pressure 139/75 09/28/2023 1:59 PM EDT Pulse 76 09/28/2023 1:59 PM EDT Temperature 36.5 C (97.7 F) 09/28/2023 1:59 PM ED T Respiratory Rate - - Oxygen Saturation 97% 09/28/2023 1:59 PM EDT Inhaled Oxygen Concentration - - Weight 92.1 kg (203 lb) 09/28/2023 1:59 PM EDT Height - - Body Mass Index 27.53 06/12/2023 1:08 PM EDT documented in this encounter Progress Notes * Stan Parra MD - 09/28/2023 1:28 PM EDT Images from the original note were not included. TeleVIDEO Visit Patient location: CLINIC. I was not in a hospital or clinic location. After connecting through televideo, patient was verified with two unique identifiers. Patient (or authorized legal associate sales representative) was then informed that this [...] that I have reviewed their record in [employer] and presented the opportunity for them to ask any questions regarding the visit today. The patient agreed to participate. Patient's Name: Piyush Aponte MR #: [id number] : 1950 Today's date: 09/28/2023 PCP: Kaz Rivas III, MD Referring provider: Bradley Uriarte Jr., MD Reason for referral: Prostate cancer (HCC) Hematology/Oncology diagnosis: Prostate AWILDA, with some cores showing intraductal histology, Very high risk group, Stage IIIC, [id number], Grade group 5: Gage score 4+5=9, Cores W/ Carcinoma(02/23), PSA = [...] reported that his muscle pain, weakness is getting much better, he is tolerating Zytiga very well. Still complaining of chronic back and knee pain. He is scheduled for PSMA PET scan in October 30, 2023 History of present illness (at time of my initial evaluation on 02/20/2022 ): Piyush Aponte is a 71 year old male who presented to my office accompanied by his to establish care with oncologist for his prostatic adenocarcinoma. Patient [place] away from [facility]. Patient recently fell from a tree, and had compression fracture. He is currently on a brace, and neck collar. In 2018, patient complained of difficulty urination, and weak urinary stream. His PSA on March 07, 2018 was 20.83. 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, Stage IIIC, [id number], Grade group 5: Derek score 4+5=9, Cores [...] performed by Umair Cook MD at [facility]COPY [facility] COLONOSCOPY, DIAGNOSTIC (RECTUM) 08/17/2021 benign polyp, diverticulosis, repeat 5 yrs / COLONOSCOPY FLEXIBLE PROXIMAL DIAGNOSTIC performed by Chavez Abbasi MD at [facility]COPY [facility] COLONOSCOPY, GI REFERRAL OP 03/02/2006 hyperplastic polyps--repeat 5 years COLORECTAL CANCER SCREEN;W/FLE 06/05/2001 70 cms wnl DENTAL SURGERY PROCEDURE NEC Dental Surgery Procedure EGD, FLEXIBLE, DIAGNOSTIC 12/22/2011 UPPER GI ENDOSCOPY DIAGNOSTIC performed by Berkley Rosen DO at [facility]COPY [facility] bile reflux and inlet patch EGD, FLEXIBLE, DIAGNOSTIC 06/18/2023 biopsies from esophagus show mild inflammation/ESOPHAGOGASTRODUODENOSCOPY (EGD), FLEXIBLE, TRANSORAL, DIAGNOSTIC performed by Ayah Meza MD at [facility]COPY [facility] INFORMATION 1982 Herniated disc repair KNEE ARTHROSCOPY/MENISCUS REPAIR Left 2013 KNEE ARTHROSCOPY/SURGERY Left 09/23/2020 shave menniscus chondroplasty REMOVE GALLBLADDER 11/17/2002 Cholecystectomy - open [facility] Dr. Gold REMOVE LUMBAR SPINE LAMINA, 3+ SEGS 1981 Lumbar Disk Excision REMOVE TONSILS & ADENOIDS, UNDER 12 Tonsillectomy/Adenoids,<12 Y/O SHOULDER ARTHROSCOPY/DEBRIDEMENT Left 2017 STRESS TREADMILL 2000 wnl TRANSPERINEAL BX OF PROSTATE, STEREOTACTIC N/A 04/30/2018 TRANSPERINEAL BX OF PROSTATE, STEREOTACTIC performed by Vy Tyler MD at [facility] UPPER ENDOSCOPY GI REFERRAL OP 03/02/2006 [...] as needed for Nausea. 50 Tablet 0 Sucralfate 1 GM Oral Tablet (Carafate) TAKE [...] by mouth at bedtime.) 90 Capsule 3 Apixaban 5 MG Oral Tablet (Eliquis) TAKE 1 TABLET TWICE A DAY 180 Tablet 1 predniSONE 5 MG Oral Tablet (Deltasone) Take 1 tablet by mouth in the morning. 30 Tablet 5 Abiraterone Acetate 250 MG Oral Tablet (Zytiga) Take 1 Tablet by mouth in the morning. 30 Tablet 5 Calcium Carb-Cholecalciferol 600-10 MG-MCG Oral Tablet Take 1 Tablet by mouth in the morning. Omeprazole 40 MG Oral Capsule Delayed Release (PriLOSEC) TAKE 1 CAPSULE DAILY 1 HOURBEFORE THE FIRST MEAL OF THE DAY and 1 hour before dinner 180 Capsule 2 Rosuvastatin Calcium 5 MG Oral Tablet (Crestor) Take 1 Tablet by mouth in the morning. 90 Tablet 3 No current facility-administered medications for this visit. Review of patient's allergies indicates: Allergen Reactions Levaquin [Levofloxacin] Muscle pain Oxycodone Nausea/vomiting Physical exam: Vitals 08/03/2023 12:11 08/24/2023 15:53 09/03/2023 11:32 09/14/2023 09/21/2023 14:42 09/28/2023 Vitals BP 139/75 Pulse 76 Temp 36.5 C (97.7 F) SpO2 97 % Weight 203 lb Notes Notes Telephone Encounter Signed Sherrill Chiang [facility] Progress Notes Signed Verna Gallagher, [facility] Progress Notes Signed Agatha Acosta, assembler metal building Progress Notes Signed Idania Franco, assembler metal building Progress Notes Signed Jordan Andrade OSA Progress Notes Sign when Signing Visit Stan Parra MD Details More values are hidden. Newest values shown. Go to activity for more data. General: alert, healthy and no distress Head: Normocephalic, No masses, lesions, tenderness or abnormalities Rest of examination can not be performed because of video visit Labs: Results for orders placed or performed in visit on 09/28/23 COMPREHENSIVE METABOLIC PANEL Result Value Ref Range BUN 14 6 - 20 mg/dL Creatinine 0.8 0.6 - 1.2 mg/dL Estimated Glomerular Filtration Rate >90 >=60 mL/min Sodium 140 135 - 146 mmol/L Potassium 4.2 3.5 - 5.1 mmol/L Chloride 104 98 - 107 mmol/L CO2 24 22 - 32 mmol/L Anion Gap 12 7 - 15 mmol/L Glucose 131 (H) 70 - 120 mg/dL Albumin 4.0 3.8 - 5.0 g/dL AST 25 10 - 50 U/L Alkaline Phosphatase 78 35 - 130 U/L Bilirubin, Total 0.5 <=1.2 mg/dL Calcium 9.2 8.4 - 10.2 mg/dL Protein 6.6 6.0 - 8.3 g/dL ALT 14 10 - 50 U/L CBC Result Value Ref Range WBC 6.16 4.00 - 10.80 K/uL RBC 4.46 4.50 - 5.25 M/uL HGB 13.8 (L) 14.0 - 16.8 g/dL HCT 40.5 40.0 - 48.4 % MCV 90.8 82.0 - 99.5 fL MCH 30.9 27.0 - 34.0 pg MCHC 34.1 32.0 - 36.0 g/dL RDW 12.9 11.5 - 15.5 % PLT 160 140 - 400 K/uL MPV 10.6 6.6 - 11.1 fL nRBCs 0 <=0 /100 WBCs DIFFERENTIAL, AUTOMATED Result Value Ref Range WBC 6.16 4.00 - 10.80 K/uL Neutrophils % 87.3 (H) 40.0 - 75.0 % Lymphocytes % 7.5 (L) 18.0 - 42.0 % Monocytes % 4.5 1.0 - 11.0 % Eosinophils % 0.3 0.0 - 6.0 % Basophils % 0.2 0.0 - 2.0 % Immature Granulocytes % 0.2 0.0 - 2.0 % Absolute Neutrophils 5.38 1.80 - 7.70 K/uL Absolute Lymphocytes 0.46 (L) 1.00 - 4.80 K/ul Absolute Monocytes 0.28 0.00 - 1.10 K/uL Absolute Eosinophils 0.02 0.00 - 0.70 K/uL Absolute Basophils 0.01 0.00 - 0.20 K/uL Absolute Immature Granulocytes 0.01 0.00 - 0.20 K/uL *Note: Due to a large number of results and/or encounters for the requested time period, some results have not been displayed. A complete set of results can be found in Results Review. Imaging: XR HIP BILAT MIN 5 VIEWS INCLUDING AP OF PELVIS Result Date: 06/30/2023 IMPRESSION: No acute process. 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 No interval change in mild compression deformity of what is referred to as L2. Thereis a transitional vertebra. 2. Moderate lumbar spondylosis. THIS DOCUMENT HAS BEEN ELECTRONICALLY SIGNED BY MARIELA HEDA MD Pathology Review: EGD on 06/18/23 mpression: - [...] intraductal histology, Very high risk group, StageIIIC, [id number], Grade group 5: Derek score 4+5=9, Cores [...] 5 F- Dr. Obrien (06/15/2022- 06/26/2022) Plan: Tolerating Zytiga very well, with no worsening muscle aches, even after starting statin few weeks ago. Recommend continue same dose of Zytiga 250 mg q.day with low-fat breakfast. Continue Eligard shot q.3 months. He is due today. Continue calcium plus vitamin-D EGD report reviewed, showed mild chronic gastritis, [...] and laboratory). His PSA continue to trend down (still pending from today), and no signs or symptoms of disease progression. Scheduled for PSMA PET-CT on November 06, 2023 (ordered by Dr. Obrien) RESPONSE ASSESSMENT DURING TREATMENT: For males with [...] This chart was completed in part utilizing [employer] Speech Voice Recognition Software. Grammatical errors, random [...] documented in this encounter Nursing Notes * Bony Johnson MED ASSIST - 09/28/2023 2:00 PM EDT Chief Complaint Patient presents with Follow Up Provider aware of VS. BP 139/75 | Pulse 76 | Temp 36.5 C (97.7 F) (Tympanic) | Wt 92.1 kg (203 lb) | SpO2 97% | BMI 27.53 kg/m | BSA 2.16 m Patient was instructed to not get [...] 9:30 AM EDT Pharmacy [facility] [address] [place] [address] [facility] [place] [facility] Hem/Onc [address] [place] [address] 11/06/2023 9:45 AM EDT Imaging Radiology [facility] 1st [facility] [place] [address] [facility] [place] [id number] 11/14/2023 1:00 PM EDT Office Visit Radiation Oncology, [facility] [address] [place] [address] IovoliDragan MD [address] [place] [phone] 12/03/2023 9:00 AM EDT Office Visit [facility] 200 [facility] [place] [address] Kaz Rivas III, MD [address] [place] [address] 12/31/2023 12:00 PM EDT Laboratory Laboratory, [facility] [address] [place] [phone] [facility], Lab [address] [place] [address] 12/31/2023 1:00 PM EDT Telemedicine Hematology/Oncology, [facility] [address] [place] [address] Stan Parra MD [address] [place] [address] Cart, Telemed [facility] Hem Onc Clinic [address] [place] [address] 12/31/2023 1:30 PM EDT Immunization/Injection Hematology/Oncology Treatment, [facility] [address] [place] [address] [place] [address] [facility], Chair2 Hem Onc [address] [address] Scheduled Procedures Name Priority Associated Diagnoses Date/Ti me COLONOSCOPY FLEXIBLE PROXIMA L DIAGNOSTIC Recall History of colonic polyps Health Maintenance Due Date Last Done Comments Cologuard 07/20/1995 Sigmoidoscopy 07/20/1995 Fecal Occult Blood Test 06/15/2002 06/15/2001 Depression Screening 01/04/2020 01/03/2019 DTaP,Tdap,and Td Vaccines (2 - Td or Tdap) 08/25/2020 08/25/2010 COVID-19 Vaccine (4 - season) 2022 04/06/2021, 04/06/2021, 05/21/2020, Additional [...] prostate (HCC)- Primary Malignant neoplasm of prostate Encounter to discuss test results Other specified counseling Encounter for medication monitoring Encounter for therapeutic drug monitoring History of radiation therapy Personal history of irradiation, presenting hazards to health Encounter for monitoring Lupron therapy Encounter for therapeutic drug monitoring Use of leuprolide acetate (Lupron) Use of other agents affecting estrogen receptors and estrogen levels documented in this encounter Advance Directives * [...] the patient have Health Care Power of Cemetery Vault Installer? Yes, not currently available Care Teams Deputy Court Relationship Specialty Start Date End Date Kaz Rivas III, MD [address] [place] [address] PCP - General 10/25/1995 documented as of this encounter"
--- OUTSIDE RECORDS SUMMARY | 2024-01-26 10:43 | External Medical Summary ---
Author Name Unknown Address Unknown Organization K09:[facility] [address] [place] [address] Laboratory Report Ordering Provider Test Date Status JESÚS BESS 10/25/2023 10:37:55 Final Observation Date Value Abnormality Reference (Units ) Status BUN 10/25/2023 10:37:55 15 6-20 (mg/dL) Final Creatinine 10/25/2023 10:37:55 0.8 0.6-1.2 (mg/dL) Final Glomerular filtration rate/1.73 sq M.predicted [Volume Rate/Area] in Serum, Plasma or Blood by Creatinine-based formula (CKD-EPI) 10/25/2023 10:37:55 >90 >=60 (mL/min) Final eGFR is calculated based on the CKD-EPI 2020 equation. Sodium 10/25/2023 10:37:55 142 135-146 (m mol/L) Final Potassium 10/25/2023 10:37:55 4.0 3.5-5.1 (m mol/L) Final Cl 10/25/2023 10:37:55 106 98-107 (mm ol/L) Final CO2 10/25/2023 10:37:55 26 22-32 (mmo l/L) Final Anion gap 10/25/2023 10:37:55 10 7-15 (mmol /L) Final Glucose 10/25/2023 10:37:55 90 70-120 (mg /dL) Final Albumin 10/25/2023 10:37:55 3.9 3.8-5.0 (g /dL) Final AST (Aspartate aminotransferase) 10/25/2023 10:37:55 23 10-50 (U/L) Fin al Alk Phos 10/25/2023 10:37:55 73 35-130 (U/ L) Final Bilirubin, Total 10/25/2023 10:37:55 0.5 <=1 .2 (mg/dL) Final Calcium 10/25/2023 10:37:55 9.2 8.4-10.2 ( mg/dL) Final Protein 10/25/2023 10:37:55 6.4 6.0-8.3 (g /dL) Final ALT (Alanine aminotransferase) 10/25/2023 10:37:55 7 Below low normal 10-50 (U/L) Final Performing Location [facility] [address] [place] [address]
--- OUTSIDE RECORDS SUMMARY | 2024-01-26 10:43 | External Medical Summary ---
Author Name Unknown Address Unknown Organization K09[facility] [place] [address] Laboratory Report Ordering Provider Test Date Status JESÚS BESS 10/25/2023 10:37:55 Final Observation Date Value Abnormality Reference (Units ) Status WBC, Total 10/25/2023 10:37:55 5.96 4.00-10.8 0 (K/uL) Final RBC 10/25/2023 10:37:55 4.15 4.50-5.25 (M/uL) Final Hemoglobin 10/25/2023 10:37:55 12.5 Below low normal 14 .0-16.8 (g/dL) Final HCT 10/25/2023 10:37:55 37.7 Below low normal 40. 0-48.4 (%) Final MCV 10/25/2023 10:37:55 90.8 82.0-99.5 (fL) Final MCH 10/25/2023 10:37:55 30.1 27.0-34.0 (pg) Final MCHC 10/25/2023 10:37:55 33.2 32.0-36.0 (g/dL) Final RDW 10/25/2023 10:37:55 13.9 11.5-15.5 (%) Final Platelets 10/25/2023 10:37:55 154 140-400 (K /uL) Final MPV 10/25/2023 10:37:55 9.9 6.6-11.1 ( fL) Final Performing Location [facility] [place] [address]
--- OUTSIDE RECORDS SUMMARY | 2024-01-26 10:43 | External Medical Summary | Summary of Care ---
Author Name Unknown Organization [facility] Address [address] [place] [address] Phone [phone] Care Team Providers Care Cops Name Role Phone Evelyn FRANZ MD, Kaz Canela Primary Care Provider [phone] Reason for Visit * Reason Comments Follow Up Encounter Details Date Type Department Care Team (Late st Contact Info) Description 09/28/2023 2:00 PM EDT Telemedicine Hematology/Oncology, [facility] [address] [place], [place] [id number] Stan Parra MD [address] [place] [address] Cart, Telemed [facility] Hem Onc Clinic [address] [place] [address] Malignant neoplasm of prostate (HCC)*; [...] two unique identifiers. Patient (or authorized legal enrollment eligibility representative) was then informed that this was [...] that I have reviewed their record in [facility] and presented the opportunity for them to ask any questions regarding the visit today. The patient agreed to participate. Patient's Name: Piyush Aponte MR #: [id number] : 1950 Today's date: 09/28/2023 PCP: Kaz Rivas III, MD Referring provider: Bradley Uriarte Jr., MD Reason for referral: Prostate cancer (HCC) Hematology/Oncology diagnosis: Prostate AWILDA, with some cores showing intraductal histology, Very high risk group, Stage IIIC, [id number], Grade group 5: [place] score 4+5=9, Cores W/ Carcinoma(02/23), PSA = [...] vertebra- 2400 cGy in 3 F- Dr. Obrine (06/15/2022- 06/21/2022) SBRT to Aortocaval LN - [...] adenocarcinoma. Patient [place] from [facility]. Patient recently fell from a tree, and had compression fracture. He is currently on a brace, and neck collar. In 2018, patient complained of difficulty urination, and weak urinary stream. His PSA on March 07, 2018 was 20.83. 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, Stage IIIC, [id number], Grade group 5: Derek score 4+5=9, Cores [...] performed by Umair Cook MD at ENDOSCOPY [facility] COLONOSCOPY, DIAGNOSTIC (RECTUM) 08/17/2021 benign polyp, diverticulosis, repeat 5 yrs / COLONOSCOPY FLEXIBLE PROXIMAL DIAGNOSTIC performed by Chavez Abbasi MD at ENDOSCOPY [facility] COLONOSCOPY, GI REFERRAL OP 03/02/2006 hyperplastic polyps--repeat 5 years COLORECTAL CANCER SCREEN;W/FLE 06/05/2001 70 cms wnl DENTAL SURGERY PROCEDURE NEC Dental Surgery Procedure EGD, FLEXIBLE, DIAGNOSTIC 12/22/2011 UPPER GI ENDOSCOPY DIAGNOSTIC performed by Berkley Rosen DO at ENDOSCOPY [facility] bile reflux and inlet patch EGD, FLEXIBLE, DIAGNOSTIC 06/18/2023 biopsies from esophagus show mild inflammation/ESOPHAGOGASTRODUODENOSCOPY (EGD), FLEXIBLE, TRANSORAL, DIAGNOSTIC performed by Ayah Meza MD at ENDOSCOPY [facility] INFORMATION 1982 Herniated disc repair KNEE ARTHROSCOPY/MENISCUS REPAIR Left 2013 KNEE ARTHROSCOPY/SURGERY Left 09/23/2020 shave menniscus chondroplasty REMOVE GALLBLADDER 11/17/2002 Cholecystectomy - open [facility] Dr. Gold REMOVE LUMBAR SPINE LAMINA, 3+ SEGS 1981 Lumbar Disk Excision REMOVE TONSILS & ADENOIDS, UNDER 12 Tonsillectomy/Adenoids,<12 Y/O SHOULDER ARTHROSCOPY/DEBRIDEMENT Left 2017 STRESS TREADMILL 2000 wnl TRANSPERINEAL BX OF PROSTATE, STEREOTACTIC N/A 04/30/2018 TRANSPERINEAL BX OF PROSTATE, STEREOTACTIC performed by Vy Tyler MD at OR [facility] UPPER ENDOSCOPY GI REFERRAL OP 03/02/2006 [...] Notes Notes Telephone Encounter Signed Sherrill Chiang [facility] Progress Notes Signed Verna Gallagher, [facility] Progress Notes Signed Agatha Acosta, mirror painter Progress Notes Signed Idania Franco, mirror painter Progress Notes Signed Jordan Andrade [facility] Progress [...] BEEN ELECTRONICALLY SIGNED BY MARIELA HEAD MD Pathology Review: EGD on 06/18/23 mpression: [...] intraductal histology, Very high risk group, StageIIIC, [id number], Grade group 5: Derek score 4+5=9, Cores [...] This chart was completed in part utilizing [employer] Speech Voice Recognition Software. Grammatical errors, random [...] encounter Miscellaneous Notes * Addendum Note - Uyen Kaur, RN - 09/28/2023 3:08 PM EDTAddended by: UYEN KAUR on: 09/28/2023 03:08 PM Modules accepted: Orders documented in this encounter Plan of Treatment Upcoming Encounters Date Type Department Care Team (Late st Contact Info) Description 10/26/2023 9:30 AM EDT Pharmacy Pharmacy Hematology Oncology [facility] [address] [place] [address] [facility] [place], [facility] Hem/Onc [address] [place] [address] 11/06/2023 9:45 AM EDT Imaging Radiology [address] [facility] [place] [address] 11/14/2023 1:00 PM EDT Office Visit Radiation Oncology, [facility] [address] [place] [address] IovoliDragan MD [address] [place] [address] 12/03/2023 9:00 AM EDT Office Visit [facility] [address] [facility] [place] [address] Evelyn Kaz FRANZ MD [address] [facility] [place] [address] 12/31/2023 12:00 PM EDT Laboratory Laboratory, [facility] [address] [place] [phone] [facility], Lab [address] [place] [address] 12/31/2023 1:00 PM EDT Telemedicine Hematology/Oncology, [address] [address] Stan Parra MD [address] [place] [address] Cart, Telemed [facility] Hem Onc Clinic [address] [place] [address] 12/31/2023 1:30 PM EDT Immunization/Injection Hematology/Oncology Treatment, [address] [address] [facility], Chair2 Hem Onc [address] [place] [address] Scheduled Orders Name Type Priority Associated Diagnoses Orde r Schedule PSA Lab STAT Malignant neoplasm of prostate (HCC) Expected: 12/31/2023 (Approximate), Expires: 09/27/2024 Scheduled Procedures Name Priority Associated Diagnoses Date/Ti me COLONOSCOPY FLEXIBLE PROXIMA L DIAGNOSTIC Recall History of colonic polyps Health Maintenance Due Date Last Done Comments Cologuard 07/20/1995 Sigmoidoscopy 07/20/1995 Fecal Occult Blood Test 06/15/2002 06/15/2001 Depression Screening 01/04/2020 01/03/2019 DTaP,Tdap,and Td Vaccines (2 - Td or Tdap) 08/25/2020 08/25/2010 COVID-19 Vaccine ( season) 2022 04/06/2021, 04/06/2021, 05/21/2020, Additional history exists Influenza Vaccine (FLU shot) (#1) 2023 01/11/2022, 12/18/2019, 11/22/2018, Additional history exists GFR 09/27/2024 09/28/2023, 08/10, 07/23/2023, Additional history exists Albumin/Creatinine Ratio 10/05/2024 10/05/2021 Colonoscopy 08/17/2026 08/17/2021, 06/0 10/2021, 03/09/2016, Additional [...] patient have Health Care Power of Supervisor Rolling Room? Yes, not currently available Care Teams Cops Relationship Specialty Start Date End Date Kaz Rivas III, MD [address] [place] [address] PCP - General 10/25/1995 documented as of this encounter"
--- OUTSIDE RECORDS SUMMARY | 2024-01-26 10:43 | External Medical Summary | Summary of Care ---
Author Name Unknown Organization [facility] Address [address] [place] [address] Phone [phone] Care Team Providers Care Keymodule Assembly Supervisor Name Role Phone Evelyn FRANZ MD, Kalee Canela Primary Care Provider [phone] Reason for Visit * Reason Comments eRx-Medication Refill Encounter Details Date Type Department Care Team (Late st Contact Info) Description 10/18/2023 Refill Family Practice [facility] [address] [facility] [place] [address] Kalee Arechiga III, MD [address] [place] [address] Gastritis Allergies Active Allergy Reactions Criticality Noted Date Comments Levofloxacin Muscle pain 02/07/2018 Oxycodone Nausea/vomiting 02/07/2018 documented as of this encounter (statuses as of 10/19/2023) Medications Medication Sig Dispensed Refills Start Date End Date Status Multiple Vitamins-Minerals (CENTRUM SILVER 50+MEN) TABS Take by mouth. Active Acetaminophen ER 650 MG Oral Tablet Extended Release Take 1 Tablet by mouth every 8 hours as needed for Pain, Severe. 30 Tablet 2 Active Ondansetron HCl 8 MG Oral TabletIndications :Metastatic malignant neoplasm to prostate (HCC),Nausea Take 1 Tablet by mouth every 8 hours as needed for Nausea. 50 Tablet 3 Active Eligard 22.5 MG Subcutaneous Kit (Leuprolide Acetate (3 Month))Indication s:Metastatic malignant neoplasm to prostate (HCC) Inject 22.5 mg under the skin every 3 months for 4 doses. 4 Kit 3 12/19/19 24 Active Calcium 600+D Plus Minerals 600-400 MG-UNIT [...] TABLET TWICE A DAY 180 Tablet 1 4 Active predniSONE 5 MG Oral Tablet (Deltasone)Indica tions:Malignant neoplasm of prostate (HCC) Take 1 tablet by mouth in the morning. 30 Tablet 5 4 Active Abiraterone Acetate 250 MG Oral Tablet (Zytiga)Indicatio ns:Malignant neoplasm of prostate (HCC) Take 1 Tablet by mouth in the morning. 30 Tablet 5 4 Active Calcium Carb-Cholecalcife rol 600-10 MG-MCG Oral Tablet Take 1 Tablet by mouth in the morning. 4 Active Omeprazole 40 MG Oral Capsule [...] 4 Active Sucralfate 1 GM Oral Tablet (Carafate)Indicat ions:Gastritis TAKE 1 TABLET 1 HOUR BEFOREMEALS AND AT BEDTIME, DISSOLVE IN WATER 120 Tablet 5 4 Active Sucralfate 1 GM Oral Tablet (Carafate)Indicat ions:Gastritis TAKE 1 TABLET 1 HOUR BEFOREMEALS AND AT BEDTIME, DISSOLVE IN WATER 120 Tablet 5 3 10/19/19 24 Discontinued documented as of this encounter (statuses as of 10/19/2023) Active Problems Problem Noted Date Diagnosed Date [...] as of this encounter (statuses as of 10/19/2023) Resolved Problems Problem Noted Date Diagnosed Date Resolved Date Supraclavicular lymphadenopathy 02/11/2016 01/02/2018 Screening for prostate cancer 04/15/2003 05/20/2008 Overview: Resolved per Screening Diagnosis Protocol #6 Acute cholecystitis 11/25/2002 05/07/19 19 Diaphragmatic hernia 019 documented as of this encounter (statuses as of 10/19/2023) Immunizations Name Administration Dates Next Due COVID-19 [...] 05/14/2023 Does the household have a [facility] source of income? (Household - [...] encounter Miscellaneous Notes * Telephone Encounter - Kalee Arechiga III, MD - 10/19/2023 9:47 AM EDTSigned Prescriptions: Disp Refills Sucralfate 1 GM Oral Tablet (Carafate) 120 Ta*5 Sig: TAKE 1 TABLET 1 HOUR BEFOREMEALS AND AT BEDTIME, DISSOLVE IN WATERAuthorizing Provider: KALEE ARECHIGA III------- * Telephone Encounter - [place] Myles [facility] - 10/18/2023 12:13 PM EDT Pending Prescriptions: Disp Refills Sucralfate 1 GM Oral Tablet [Pharmacy Med *120 Ta*5 Sig: TAKE 1 TABLET 1 HOUR BEFOREMEALS AND AT BEDTIME, DISSOLVE IN WATER * Telephone Encounter - [place] Myles [facility] - 10/18/2023 12:12 PM EDT [facility] is currently not authorized to approve refills for the pended medication(s) per refill protocol. Please approve if appropriate. Thank you, [place] Myles, PharmD Clinical Pharmacist [facility] ([facility]) 10/18/23 12:13 PM [phone] documented in this encounter Plan of Treatment Upcoming Encounters Date Type Department Care Team (Late st Contact Info) Description 10/26/2023 9:30 AM EDT Pharmacy Pharmacy Hematology Oncology [facility] [address] [place] [address] [facility], [facility] Hem/Onc [address] [place] [address] 11/06/2023 9:45 AM EDT Imaging Radiology [address] 132 [facility] [place] [address] 11/06/2023 11:00 AM EDT Imaging Radiology [address] [facility] [place] [address] 11/14/2023 1:00 PM EDT Office Visit Radiation Oncology, [facility] [address] [place] [address] IovoliDragan MD [address] [place] [phone] 12/03/2023 9:00 AM EDT Office Visit [facility] [place] [address] [facility] [place] [address] Kalee Arechiga III, MD [address] [facility] [place] [address] 12/31/2023 12:00 PM EDT Laboratory Laboratory, [address] [phone] [facility], Lab [address] [place] [address] 12/31/2023 1:00 PM EDT Telemedicine Hematology/Oncology, [address] [address] Stan Parra MD [address] [place] [address] Cart, Telemed [facility] Hem Onc Clinic [address] [place] [address] 12/31/2023 1:30 PM EDT Immunization/Injection Hematology/Oncology Treatment, [address] [address] [facility], Chair2 Hem Onc [address] [place] [address] Scheduled Procedures Name Priority Associated Diagnoses Date/Ti [...] as of this encounter Visit Diagnoses Diagnosis Gastritis Unspecified gastritis and gastroduodenitis without mention of hemorrhage documented in this encounter Advance Directives * [...] the patient have Health Care Power of Consultant [employer] Vice President [employer] (Ex )? Yes, not currently available Care Teams Keymodule Assembly Supervisor Relationship Specialty Start Date End Date Kalee Arechiga III, MD [address] [facility] [place] [address] PCP - General 10/25/1995 documented as of this encounter
--- OUTSIDE RECORDS SUMMARY | 2024-01-26 10:43 | External Medical Summary | Summary of Care ---
Author Name Unknown Organization [facility] Address [address] [place] [address] Phone [phone] Care Team Providers Care Edge Stitcher Name Role Phone Evelyn FRANZ MD, Kaz Canela Primary Care Provider [phone] Reason for Visit * Reason Onset Date Comments Appointment 08/10/2023 Micah Encounter Details Date Type Department Care Team (Late st Contact Info) Description 08/10/2023 Telephone Access Center, [place] [address] [facility] *DO NOT REMOVE THIS DEPARTMENT* [place] [address] Services, Scheduling [address] [place] [address] Appointment (Micah) Allergies Active Allergy Reactions Criticality Noted Date Comments Levofloxacin Muscle pain 02/07/2018 Oxycodone Nausea/vomiting 02/07/2018 documented as of this encounter (statuses as of 11/09/2023) Medications Medication Sig Dispensed Refills Start Date [...] as of this encounter (statuses as of 11/09/2023) Active Problems Problem Noted Date Diagnosed Date [...] as of this encounter (statuses as of 11/09/2023) Resolved Problems Problem Noted Date Diagnosed Date Resolved Date Supraclavicular lymphadenopathy 02/11/2016 01/02/2018 Screening for prostate cancer 04/15/2003 05/20/2008 Overview: Resolved per Screening Diagnosis Protocol #6 Acute cholecystitis 11/25/2002 05/07/19 19 Diaphragmatic hernia 019 documented as of this encounter (statuses as of 11/09/2023) Immunizations Name Administration Dates Next Due COVID-19 [...] 1:00 PM EDT Office Visit Radiation Oncology, [facility] [address] [place] [address] IovoliDragan MD [address] [place] [address] 12/03/2023 9:00 AM EDT Office Visit Family Practice [facility] [address] [facility] [place] [address] Kaz Rivas III, MD [address] [facility] [place] [address] 12/04/2023 9:30 AM EDT Pharmacy Pharmacy Hematology Oncology [facility] [address] [place] [address] [facility], [facility] Hem/Onc [address] [place] [address] 12/31/2023 12:00 PM EDT Laboratory Laboratory, [facility] [address] [facility] [address] [facility], Lab [address] [place] [address] 12/31/2023 1:00 PM EDT Telemedicine Hematology/Oncology, [address] [address] Stan Parra MD [address] [place] [address] Cart, Telemed [facility] Hem Onc Clinic [address] [place] [address] 12/31/2023 1:30 PM EDT Immunization/Injection Hematology/Oncology Treatment, [address] [address] [facility], Chair2 Hem Onc [address] [place] [id number] Scheduled Procedures Name Priority Associated Diagnoses Date/Ti [...] the patient have Health Care Power of District Or District Office Director? Yes, not currently available Care Teams Edge Stitcher Relationship Specialty Start Date End Date Kaz Rivas III, MD [address] [place], [place] [address] PCP - General 10/25/1995 documented as of this encounter
--- OUTSIDE RECORDS SUMMARY | 2024-01-26 10:43 | External Medical Summary | Summary of Care ---
Author Name Unknown Organization [facility] Address [address] [place] [address] Phone [phone] Care Team Providers Care Transmission Supervisor Name Role Phone Evelyn FRANZ MD, Kaz Canela Primary Care Provider [phone] Reason for Visit * Reason Comments Patient Assistance Program Encounter Details Date Type Department Care Team (Late st Contact Info) Description 06/07/2022 Documentation Hematology Oncology [facility] [address] [place] [address] Stan Parra MD [address] [place] [address] Allergies Active Allergy Reactions Criticality [...] Progress Notes * Jordan Andrade OSA - 09/21/2023 2:42 PM EDT Krysta Lr, care companion 09/21/2023 14:29 Medication received 09/21/23 Estimated Delivery Date: gsp - order med 12/15/2023 * Jordan Andrade OSA - 09/14/2023 7:42 AM EDT POM Reason: Insurance mandated Insurance Info: Aetna Medicare Advantage Auth Expirin06/05/2025 Pharmacy/Company: [facility] Phone number: IM mineral surveying technician [place] Location: [facility] Estimated Delivery Date: [facility] - 09/21/2023 Appointment Date: 09/28/2023 Ordered Date: 09/14/2023 Delivery Address: Attn: 6th floor IIP POM [address] [place] [address] RX: Eligard Dose: 22.5mg 3 mo Quantity: [...] - 06/14/2023 3:07 PM EDT Krysta Lr, care companion 06/14/2023 12:40 Received 1 Eligard 22.5 Kit 06/14/23 Estimated Delivery Date: [facility] - order med 09/14/2023 * Jordan Andrade OSA - 06/05/2023 9:19 AM EDT POM Reason: Insurance mandated Insurance Info: Aetna Medicare Advantage Auth Expirin06/05/2025 Pharmacy/Company: [facility] Phone number: IM mineral surveying technician [place] Location: [facility] Estimated Delivery Date: [facility] - 06/14/2023 Appointment Date: 06/22/2023 Ordered Date: 06/05/2023 Delivery Address: Attn: 6th floor IIP POM [address] [place] [address] RX: Eligard Dose: 22.5mg 3 mo Quantity: [...] C61 Prostate Cancer * Mary Jo Gar care companion - 03/21/2023 3:56 PM EST 03/21/2023 - Received medication. Defer to 05/16/2023 to order refill. Estimated Delivery Date: received 03/21/2023 - gsp Appointment Date: 03/16/2023 Ordered Date: 03/02/2023 Delivery Address: Attn: 6th floor IIP [address] [place] [address] RX: Eligard Dose: 22.5mg 3 mo Quantity: 1 Manufactured Supplied: No Refills remaining: Injection Number for this order: Next Refill: 05/16/2023 Upcoming Appt: 05/30/2023 * Jordan Andrade OSA - 03/14/2023 2:29 PM EST 03/15/2023 - "Caterina, our buying team said they are waiting to hear from a new accounts representative from [facility] regarding the ordering issue but we have [...] - Per Vida Kelly at [facility] "Piyush Weissgard did not come in today [facility] Vida Mcwilliams is working with the buying [...] Pharmacy/Company: [facility] Phone number: IM mineral surveying technician [place] Location: [facility] Estimated Delivery Date: 03/21/2023 - [facility] Appointment Date: 03/16/2023 Ordered Date: 03/02/2023 Delivery Address: Attn: 6th floor IIP [facility] [address] [place] [address] RX: Eligard Dose: 22.5mg 3 mo Quantity: [...] 03/02/2023 to order Eligard from [facility] * Galina Barnett OSA - 12/06/2022 2:21 PM EDT KHOI Delvalle Tech 12/06/2022 13:58 | Received 1 kit of Eligard 12/06/2022 Estimated Delivery Date: Received 12/06/2022-GSP ABEL Donald [facility] 12/06/2022, 2:21 PM * Mary Jo Gar care companion - 11/27/2022 9:02 AM EDT 11/27/2022 - IM'd GSP to fill. Medication ordered. Defer to 12/06/2022 for delivery. POM Reason: Insurance mandated Insurance Info: Aetna Medicare Advantage Auth Expirin06/05/2025 Pharmacy/Company: [facility] Phone number: IM mineral surveying technician [place] Location: [facility] Estimated Delivery Date: 12/06/2022 - gsp Appointment Date: 12/11/2022 Ordered Date: 11/27/2022 Delivery Address: Attn: 6th floor IIP POM [address] [place] [address] RX: Eligard Dose: 22.5mg 3 mo Quantity: [...] [facility] 11/27/2022, 1:19 PM * Mary Jo Gar care companion - 11/20/2022 12:01 PM EDT 11/20/2022 - Defer to 01/27/2023 to order refill. ABEL Cerrato [facility] 11/20/2022, 12:02 PM * Mary Jo Gar care companion - 08/31/2022 10:15 AM EDT 09/08/2022 - Received medication per pharmacy staff. Defer 11/20/2022 for refill. 08/31/2022 - IM'd GSP for refill. Defer to 09/07/2022 for delivery. POM Reason: Insurance mandated Insurance Info: Aetna Medicare Advantage Auth Expirin06/05/2025 Pharmacy/Company: [facility] Phone number: IM mineral surveying technician [place] Location:[facility] Estimated Delivery Date: received 09/07/2022 - gsp Appointment Date: 09/11/2022 Ordered Date:08/31/2022 Delivery Address:Attn: 6th floor IIP [address] [place] [address] RX:Eligard Dose:22.5mg 3 mo Quantity:1 Manufactured Supplied:No [...] [facility] 08/31/2022, 10:18 AM * Liza Hoff OSA - 06/15/2022 2:56 PM EDT Estimated Delivery Date: Received 06/15/2022 - GSP * Mary Jo Gar care companion - 06/14/2022 11:44 AM EDT 06/14/2022 - IM'd GSP to fill script. Defer to 06/15/2022 for delivery. POM Reason: Insurance mandated Insurance Info: Aetna Medicare Advantage Auth Expirin06/05/2025 Pharmacy/Company: [facility] Phone number: IM mineral surveying technician [place] Location: [facility] Estimated Delivery Date: 06/15/2022 - GSP Appointment Date: 06/16/2022 Ordered Date:06/14/2022 Delivery Address: Attn: 6th floor IIP POM [address] [place] [address] RX: Eligard Dose: 22.5mg 3 mo Quantity: [...] [facility] 06/14/2022, 11:50 AM * Galina Barnett OSA - 06/07/2022 9:47 AM EDT 06/07/2022- Reached out to Alba Iqbal for test claim POM Reason: Insurance Info: Auth Expiring: Pharmacy/Company: Phone number: [place] Location: [facility] Estimated Delivery Date: TBD Appointment Date: Ordered Date: Delivery Address: Attn: 6th floor IIP POM 400 [place] [address] RX: Eligard Dose: 22.5mg 3 mo Quantity: [...] Pharmacy Hematology Oncology [facility] [address] [place] [address] [facility] [place] [facility] Hem[facility]Onc [address] [place] [address] 11/06/2023 9:45 AM EDT Imaging Radiology [address] 132 [place] [address] 11/14/2023 1:00 PM EDT Office Visit Radiation Oncology, [facility] [address] [place] [address] IovoliDragan MD [address] [place] [address] 12/03/2023 9:00 AM EDT Office Visit [facility] [address] [place] [address] Kaz Rivas III, MD 200 [place] [address] 12/31/2023 12:00 PM EDT Laboratory Laboratory, [facility] [address] [place] [phone] [facility], Lab [address] [place] [address] 12/31/2023 1:00 PM EDT Telemedicine Hematology/Oncology, [address] [place] [address] Stan Parra MD [address] [place] [address] Buffy, Telemed [facility] Hem Onc Clinic 400 [facility] [address] 12/31/2023 1:30 PM EDT Immunization/Injection Hematology/Oncology Treatment, [facility] [address] [facility], Chair2 Hem Onc [address] [place] [id number] Scheduled Procedures Name Priority Associated Diagnoses Date/Ti [...] the patient have Health Care Power of Trick Rodeo Rider? Yes, not currently available Care Teams Transmission Supervisor Relationship Specialty Start Date End Date Kaz Rivas III, MD 200 [place] [address] PCP - General 10/25/1995 documented as of this encounter
--- OUTSIDE RECORDS SUMMARY | 2024-01-26 10:43 | External Medical Summary | Summary of Care ---
Author Name Unknown Organization [facility] Address [address] [place] [address] Phone [phone] Care Team Providers Care Federal Air Marshal Name Role Phone Evelyn FRANZ MD, Kaz Canela Primary Care Provider [phone] Reason for Visit * Reason Comments Medication Management Encounter Details Date Type Department Care Team (Late st Contact Info) Description 10/26/2023 9:30 AM EDT Pharmacy Pharmacy Hematology Oncology [facility] [address] [place] [address] [facility] Hem/Onc [address] [place] [address] Malignant neoplasm of prostate (HCC)* Allergies Active [...] this encounter Progress Notes * Renetta Pagan, [facility] - 10/25/2023 3:38 PM EDT MEDICATION THERAPY MANAGEMENT ABIRATERONE TREATMENT PROGRESS NOTE Piyush López Fadi [id number] Patient Phone Numbers Preferred Lab: [facility] Specialty Pharmacy: [facility] Communication: Spoke to: Patient Treatment: Medication: Abiraterone (Zytiga) Indication/Staging/Diagnosis Code: mCSPC / Stage IIIC / C61 Dose: 250mg daily ( 07/17/22) Administration: with food Start Date: 06/05/22 Primary Medical Geneticist/Oncologist: Dr. Parra Additional Therapy: Prednisone 5mg daily Lupron Ondansetron Treatment History: 05/2018: bicalutamide 06/05/18-09/10/20; 05/2022-present: Lupron 08/19/18-10/14/18: RT Interval History: Per OV 09/28/23, continue abiraterone 250mg daily with breakfast Reports stable BP < 150/90 No concerns, tolerating therapy well Changes to medication list since last visit? No Assessment and Plan: Follow up labs and BP stable Continue BP monitoring and contact office if BP > 150/90 Continue current therapy and monthly labs - pt to walk in after PCP OV 12/03/23 Assessment of compliance: compliant Assessment of adverse effects attributed to drug therapy: Edema/fluid retention - absent HTN - absent Joint swelling or discomfort - absent Arthralgias/Myalgias - absent Diarrhea/Constipation - absent Dose adjustment needed based on lab or adverse drug reaction? No Follow up: 12/03 Renetta Pagan, PharmD, BCOP Clinical Pharmacist, [facility] Oral Chemotherapy [facility] 10/25/2023, 3:43 PM Monitoring Parameters: Estimated CrCl Serum creatinine: 0.8 mg/dL 10/25/23 1037 Estimated creatinine clearance: 90.3 mL/min Hepatitis panel Latest Reference Range & [...] Pertinent labs: Latest Reference Range & Units 08/24/23 13:05 09/28/23 12:44 10/25/23 10:37 Albumin 3.8 - 5.0 g/dL 3.9 4.0 3.9 AST 10 - 50 U/L 23 25 23 ALT 10 - 50 U/L 8 (L) 14 7 (L) Alkaline Phosphatase 35 - 130 U/L 76 78 73 Bilirubin, Total <=1.2 mg/dL 0.5 0.5 0.5 06/18/2023 06/22/2023 09/28/2023 BP AND WT. Systolic 120 148 139 Systolic 127 Systolic 150 Diastolic 79 75 75 Diastolic 69 Diastolic 74 Time Spent on Encounter: 6 - 10 minutes Encounter Group: Oncology Encounter Interventions Item Category: Oral Chemotherapy Abiraterone Problem/Rationale: Safety: Needs additional monitoring - Medication Requires monitoring Pharmacist Intervention(s): Lab monitoring and Toxicity monitoring Magnitude of Intervention: Monitoring with direction (Level 1) documented in this encounter Plan of Treatment Upcoming Encounters Date Type Department Care Team (Late st Contact Info) Description 11/06/2023 9:45 AM EDT Imaging Radiology [address] 132 [facility] [place] [address] 11/06/2023 11:00 AM EDT Imaging Radiology [address] 132 [place] [address] 11/14/2023 1:00 PM EDT Office Visit Radiation Oncology, [facility] [address] [place] [address] IovoliDragan MD [address] [place] [phone] 12/03/2023 9:00 AM EDT Office Visit [facility] 200 [place] [address] Kaz Rivas III, MD 200 [place] [address] 12/04/2023 9:30 AM EDT Pharmacy Pharmacy Hematology Oncology [facility] [address] [place] [address] [facility] Hem/Onc [address] [place] [address] 12/31/2023 12:00 PM EDT Laboratory Laboratory, [facility] [address] [place] [phone] [facility], Lab [address] [place] [address] 12/31/2023 1:00 PM EDT Telemedicine Hematology/Oncology, [facility] [address] Stan Parra MD [address] [place] [address] Cart, Telemed [facility] Hem Onc Clinic [address] [place] [address] 12/31/2023 1:30 PM EDT Immunization/Injection Hematology/Oncology Treatment, [address] [address] [facility], Chair2 Hem Onc [address] [place] [address] Scheduled Procedures Name Priority Associated Diagnoses Date/Ti me COLONOSCOPY FLEXIBLE PROXIMA L DIAGNOSTIC Recall History of colonic polyps Health Maintenance Due Date Last Done Comments Cologuard 07/20/1995 Sigmoidoscopy 07/20/1995 Fecal Occult Blood Test 06/15/2002 06/15/2001 Adult Wellness Visit 2016 Depression Screening 01/04/2020 01/03/2019 DTaP,Tdap,and Td Vaccines (2 - Td or Tdap) 08/25/2020 08/25/2010 COVID-19 Vaccine ( - 2022- season) 2022 04/06/2021, 04/06/2021, 05/21/2020, [...] the patient have Health Care Power of Clinical Applications Manager? Yes, not currently available Care Teams Federal Air Marshal Relationship Specialty Start Date End Date Kaz Rivas III, MD [address] [place] [address] PCP - General 10/25/1995 documented as of this encounter
--- OUTSIDE RECORDS SUMMARY | 2024-01-26 10:43 | External Medical Summary | Summary of Care ---
Author Name Unknown Organization [facility] Address [address] [place] [address] Phone [phone] Care Team Providers Care Jig Grinder Name Role Phone Evelyn FRANZ MD, Kaz Canela Primary Care Provider [phone] Reason for Visit * Reason Comments Outpatient Testing Encounter Details Date Type Department Care Team (Late st Contact Info) Description 09/28/2023 1:00 PM EDT Laboratory Laboratory, [facility] [address] [place] [address] [facility], Lab [address] [place], [place] [phone] Malignant neoplasm of prostate (HCC) Allergies Active [...] Description 09/28/2023 2:00 PM EDT Telemedicine Hematology/Oncology, [address] [place] [address] Stan Parra MD [address] [place] [address] Buffy, Telemed [facility] Hem Onc Clinic [address] [place], [place] [address] [address] 09/28/2023 2:30 PM EDT Immunization/Injection Hematology/Oncology Treatment, [address] [place] [address] [facility], Chair3 Hem Onc [address] [place], [place] [address]ber[place] [address] 10/26/2023 9:30 AM EDT Pharmacy Pharmacy Hematology Oncology [facility] [address] [place] [address] [facility] Hem/Onc [address] [place] [address] 11/06/2023 9:45 AM EDT Imaging Radiology [address], [place] [address] [place] [address] 11/14/2023 1:00 PM EDT Office Visit Radiation Oncology, [facility] [address] [place] [address] IovoliDragan MD [address] [place] [address] 12/03/2023 9:00 AM EDT Office Visit Family Practice [facility] 200 [facility] [place] [address] Kaz Rivas III, MD 200 [facility] [place] [address] Pending Results Name Type Priority Associated Diagnoses Date /Time COMPREHENSIVE METABOLIC PANEL Lab STAT Malignant neoplasm of prostate (HCC) 09/28/2023 12:44 PM EDT PSA Lab STAT Malignant neoplasm of prostate (HCC) 09/28/2023 12:59 PM EDT Scheduled Procedures Name Priority Associated [...] 01/11/2022, 12/18/2019, 11/22/2018, Additional history exists GFR 08/23/2024 08/24/2023, 07/10, 06/22/2023, Additional history exists Albumin/Creatinine Ratio 10/05/2024 10/05/2021 [...] Date/Time Associated Diagnosis Comments DIFFERENTIAL, AUTOMATED STAT 09/28/2023 12:44 PM EDT Malignant neoplasm of prostate (HCC) CBC STAT 09/28/2023 12:44 PM EDT Malignant neoplasm of prostate (HCC) CBC STAT 09/28/2023 12:44 PM EDT Malignant neoplasm of prostate (HCC) documented in this encounter Results * (ABNORMAL) DIFFERENTIAL, AUTOMATED (09/28/2023 12:44 PM EDT) WBC 6.16 4.00 - 10.80 K/uL 09/28/2023 12:51 PM EDT LAB[facility] Neutrophils % 87.3(H) 40.0 - 75.0 % 09/28/2023 12:51 PM EDT LAB[facility]ATORY [facility] Lymphocytes % 7.5(L) 18.0 - 42.0 % 09/28/2023 12:51 PM EDT LAB[facility]ORY [facility] Monocytes % 4.5 1.0 - 11.0 % 09/28/2023 12:51 PM EDT [facility]ORY [facility] Eosinophils % 0.3 0.0 - 6.0 % 09/28/2023 12:51 PM EDT [facility]ORY [facility] Basophils % 0.2 0.0 - 2.0 % 09/28/2023 12:51 PM EDT LAB[facility]ATORY [facility] Immature Granulocytes % 0.2 0.0 - 2.0 % 09/28/2023 12:51 PM EDT LABORATORY [facility] Absolute Neutrophils 5.38 1.80 - 7.70 K/uL 09/28/2023 12:51 PM EDT LABORATORY [facility] Absolute Lymphocytes 0.46(L) 1.00 - 4.80 K/ul 09/28/2023 12:51 PM EDT LAB[facility]ATORY [facility] Absolute Monocytes 0.28 0.00 - 1.10 K/uL 09/28/2023 12:51 PM EDT LAB[facility]ATORY [facility] Absolute Eosinophils 0.02 0.00 - 0.70 K/uL 09/28/2023 12:51 PM EDT LAB[facility]ATORY [facility] Absolute Basophils 0.01 0.00 - 0.20 K/uL 09/28/2023 12:51 PM EDT LABORATORY [facility] Absolute Immature Granulocytes 0.01 0.00 - 0.20 K/uL 09/28/2023 12:51 PM EDT LAB[facility]ORY [facility] Blood Venous blood specimen / Unknown Venipuncture / Unknown 09/28/2023 12:44 PM EDT 09/28/2023 12:45 PM EDT Stan Parra MD LAB BLOOD O [facility]LES LABORATORY [address] [address] * (ABNORMAL) CBC (09/28/2023 12:44 PM EDT) WBC 6.16 4.00 - 10.80 K/uL 09/28/2023 12:51 PM EDT [facility] RBC 4.46 4.50 - 5.25 M/uL 09/28/2023 12:51 PM EDT [facility] HGB 13.8(L) 14.0 - 16.8 g/dL 09/28/2023 12:51 PM EDT [facility] HCT 40.5 40.0 - 48.4 % 09/28/2023 12:51 PM EDT [facility] MCV 90.8 82.0 - 99.5 fL 09/28/2023 12:51 PM EDT [facility] MCH 30.9 27.0 - 34.0 pg 09/28/2023 12:51 PM EDT [facility] MCHC 34.1 32.0 - 36.0 g/dL 09/28/2023 12:51 PM EDT [facility] RDW 12.9 11.5 - 15.5 % 09/28/2023 12:51 PM EDT [facility] PLT 160 140 - 400 K/uL 09/28/2023 12:51 PM EDT LABORATORY [facility] MPV 10.6 6.6 - 11.1 fL 09/28/2023 12:51 PM EDT LABORATORY [facility] nRBCs 0 <=0 /100 WBCs 09/28/2023 12:51 PM EDT LABORATORY [facility] Blood Venous blood specimen / Unknown Venipuncture / Unknown 09/28/2023 12:44 PM EDT 09/28/2023 12:45 PM EDT Stan Parra MD LAB BLOOD O [facility] [address] [place] [address] documented in this encounter Visit Diagnoses Diagnosis [...] the patient have Health Care Power of Filling Separator? Yes, not currently available Care Teams Jig Grinder Relationship Specialty Start Date End Date Kaz Rivas III, MD [address] [place] [address] PCP - General 10/25/1995 documented as of this encounter
--- OUTSIDE RECORDS SUMMARY | 2024-01-26 10:43 | External Medical Summary | Summary of Care ---
Author Name Unknown Organization [facility] Address [address] [place] [address] Phone [phone] Care Team Providers Care Music Industry Internship Name Role Phone Evelyn FRANZ MD, Kalee Canela Primary Care Provider [phone] Reason for Visit * Reason Comments eRx-Medication Refill Encounter Details Date Type Department Care Team (Late st Contact Info) Description 11/10/2023 Refill Family Practice [facility] [address] [place] [address] Kalee Arechiga III, MD [address] [place] [address] Allergies Active Allergy Reactions Criticality Noted Date Comments Levofloxacin Muscle pain 02/07/2018 Oxycodone Nausea/vomiting 02/07/2018 documented as of this encounter (statuses as of 11/13/2023) Medications Medication Sig Dispensed Refills Start Date [...] on 06/12/2023 predniSONE 5 MG Oral Tablet (Deltasone)Indica tions:Malignant [...] A DAY 180 Tablet 3 4 Active Apixaban 5 MG Oral Tablet (Eliquis) TAKE 1 TABLET TWICE A DAY 180 Tablet 1 4 11/13/19 24 Discontinued documented as of this encounter (statuses as of 11/13/2023) Active Problems Problem Noted Date Diagnosed Date [...] as of this encounter (statuses as of 11/13/2023) Resolved Problems Problem Noted Date Diagnosed Date Resolved Date Supraclavicular lymphadenopathy 02/11/2016 01/02/2018 Screening for prostate cancer 04/15/2003 05/20/2008 Overview: Resolved per Screening Diagnosis Protocol #6 Acute cholecystitis 11/25/2002 05/07/19 19 Diaphragmatic hernia 019 documented as of this encounter (statuses as of 11/13/2023) Immunizations Name Administration Dates Next Due COVID-19 [...] No 05/14/2023 Does the household have a [facility] source of income? (Household - [...] encounter Miscellaneous Notes * Telephone Encounter - Halley Rodriguez RPh - 11/13/2023 9:36 AM EDTSigned Prescriptions: Disp Refills Apixaban 5 MG Oral Tablet (Eliquis) 180 Ta*3 Sig: TAKE 1 TABLET TWICE A DAYAuthorizing Provider: KALEE ARECHIGA III User: HALLEY RODRIGUEZ documented in this encounter Plan of Treatment Upcoming Encounters Date Type Department Care Team (Late st Contact Info) Description 11/14/2023 1:00 PM EDT Office Visit Radiation Oncology, [facility] [address] [place] [address] IoDragan carballo MD [address] [place] [address] 12/03/2023 9:00 AM EDT Office [facility] [place] 200 [place] [address] Kalee Arechiga III, MD 200 [facility] [place], [place] [address] 12/04/2023 9:30 AM EDT Pharmacy Pharmacy Hematology Oncology [facility] [address] [place] [address] [facility] Hem/Onc [facility] [place] [address] 12/31/2023 12:00 PM EDT Laboratory Laboratory, [address] [phone] [facility], Lab [address] [place] [address] 12/31/2023 1:00 PM EDT Telemedicine Hematology/Oncology, [address] [address] Stan Parra MD [address] [place] [address] Cart, Telemed [facility] Hem Onc Clinic [address] [place] [address] 12/31/2023 1:30 PM EDT Immunization/Injection Hematology/Oncology Treatment, [address] [address] [facility], Chair2 Hem Onc [address] [place] [address] Scheduled Procedures Name Priority Associated Diagnoses Date/Ti [...] the patient have Health Care Power of Studio Musician? Yes, not currently available Care Teams Music Industry Internship Relationship Specialty Start Date End Date Evelyn III, Kalee Canela MD 200 [facility] [place] [address] PCP - General 10/25/1995 documented as of this encounter
--- OUTSIDE RECORDS SUMMARY | 2024-01-26 10:43 | External Medical Summary ---
Author Name Unknown Address Unknown Organization K09:[facility] [place] [address] Laboratory Report Ordering Provider Test Date Status JESÚS BESS 10/25/2023 10:37:55 Final Observation Date Value Abnormality Reference (Units ) Status SYNC LEUKOCYTES IN BLOOD BY AUTOMATED COUNT 10/25/2023 10:37:55 5.96 4.00-10.80 (K/uL) Final Segs 10/25/2023 10:37:55 80.4 Above high normal 40.0-75.0 (%) Final Lymphs % 10/25/2023 10:37:55 10.6 Below low normal 18.0-42.0 (%) Final Monos 10/25/2023 10:37:55 8.1 1.0-11.0 (%) Final Eosinophils 10/25/2023 10:37:55 0.7 0.0-6.0 (%) Final Basos 10/25/2023 10:37:55 0.2 0.0-2.0 (%) Final Absolute Segs 10/25/2023 10:37:55 4.80 1.80-7.70 (K/uL) Final Lymphs, absolute 10/25/2023 10:37:55 0.63 Below low normal 1.00-4.80 (K/ul) Final Monos, Abs 10/25/2023 10:37:55 0.48 0.00-1.10 (K/uL) Final Eos, Abs 10/25/2023 10:37:55 0.04 0.00-0.70 (K/uL) Final Basos, Abs 10/25/2023 10:37:55 0.01 0.00-0.20 (K/uL) Final Performing Location [facility] [place] [address]
--- OUTSIDE RECORDS SUMMARY | 2024-01-26 10:44 | External Medical Summary | Summary of Care ---
Author Name Unknown Organization [facility] Address [address] [place] [address] Phone [phone] Care Team Providers Care Make Up Worker Name Role Phone Evelyn FRANZ MD, Kaz Canela Primary Care Provider [phone] Reason for Visit * Reason Comments Medication Management Encounter Details Date Type Department Care Team (Late st Contact Info) Description 08/24/2023 9:30 AM EDT Pharmacy Pharmacy Hematology Oncology [facility] [address] [place] [address] [facility]Onc [address] [place] [address] Malignant neoplasm of prostate (HCC)* Allergies Active Allergy Reactions Criticality Noted Date Comments Levofloxacin Muscle pain 02/07/2018 Oxycodone Nausea/vomiting 02/07/2018 documented as of this encounter (statuses as of 08/24/2023) Medications Medication Sig Dispensed Refills Start Date [...] months for 4 doses. 4 Kit 10/03/2022 09/16/2023 Active Calcium 600+D Plus Minerals 600-400 MG-UNIT [...] as of this encounter (statuses as of 08/24/2023) Active Problems Problem Noted Date Diagnosed Date [...] as of this encounter (statuses as of 08/24/2023) Resolved Problems Problem Noted Date Diagnosed Date Resolved Date Supraclavicular lymphadenopathy 02/11/2016 01/02/2018 Screening for prostate cancer 04/15/2003 05/20/2008 Overview: Resolved per Screening Diagnosis Protocol #6 Acute cholecystitis 11/25/2002 05/07/19 19 Diaphragmatic hernia 019 documented as of this encounter (statuses as of 08/24/2023) Immunizations Name Administration Dates Next Due COVID-19 [...] as of this encounter Progress Notes * Verna Gallagher, [facility] - 08/24/2023 3:53 PM EDT MEDICATION THERAPY MANAGEMENT ABIRATERONE TREATMENT PROGRESS NOTE Piyush Aponte [id number] Patient Phone Numbers Preferred Lab: [facility] Communication: Left message Treatment: Medication: Abiraterone (Zytiga) Indication/Staging/Diagnosis Code: mCSPC / Stage IIIC / C61 Dose: 250mg daily ( 07/17/22) Administration: with food Start Date: 06/05/22 Primary National Investigative Producer/Oncologist: Dr. Parra Additional Therapy: Prednisone 5mg daily Lupron Ondansetron Treatment History: 05/2018: bicalutamide 06/05/18-09/10/20; 05/2022-present: Lupron 08/19/18-10/14/18: RT Interval History: Per OV 07/17/22, pt advised to reduce abiraterone to 250mg daily with breakfast Changes to medication list since last visit? No Assessment and Plan: Follow up labs stable Continue BP monitoring and contact office if BP > 150/90 Continue current therapy and monthly labs Assessment of compliance: N/A Assessment of adverse effects attributed to drug therapy: N/A Dose adjustment needed based on lab or adverse drug reaction? No Follow up: Lab/OV 09/27; 8 weeks MTM Verna Gallagher, PharmD, BCOP Clinical Pharmacist [facility] 08/24/2023, 3:57 PM Monitoring Parameters: Estimated CrCl Serum creatinine: 0.9 mg/dL 08/24/23 1305 Estimated creatinine clearance: 87.3 mL/min Hepatitis panel Latest Reference Range & [...] Pertinent labs: Latest Reference Range & Units 06/22/23 13:18 07/23/23 13:34 08/24/23 13:05 Albumin 3.8 - 5.0 g/dL 4.2 4.1 3.9 AST 10 - 50 U/L 23 ALT 10 - 50 U/L 14 5 (L) 8 (L) Alkaline Phosphatase 35 - 130 U/L 83 74 76 Bilirubin, Total <=1.2 mg/dL 0.4 0.5 0.5 (L): Data is abnormally low 05/31/2023 06/12/2023 06/18/2023 06/22/2023 BP AND WT. Systolic 136 120 148 Systolic 127 Systolic 150 Diastolic 86 79 75 Diastolic 69 Diastolic 74 Time Spent [...] Description 09/28/2023 1:00 PM EDT Laboratory Laboratory, [address] [address] [facility], Lab [address] [place] [address] 09/28/2023 2:00 PM EDT Telemedicine Hematology/Oncology, [address] [address] Stan Parra MD [address] [place] [address] Cart, Telemed [facility] Hem Onc Clinic [address] [place] [address] 09/28/2023 2:30 PM EDT Immunization/Injection Hematology/Oncology Treatment, [address] [address] [facility], Chair1 Hem Onc [address] [place] [address] 10/26/2023 9:30 AM EDT Pharmacy Pharmacy Hematology Oncology [facility] [place] [address] [place] [address] [facility] Hem[facility]Onc [address] [place] [address] 11/06/2023 9:45 AM EDT Imaging Radiology [facility] 1st [facility] [place] [address] [facility] [place] [address] 11/14/2023 1:00 PM EDT Office Visit Radiation Oncology, [facility] [address] [place] [address] Crescencio Obrien MD [address] [place] [address] 12/03/2023 9:00 AM EDT Office Visit Family Practice [facility] [address] [place] [address] Kaz Rivas III, MD [address] [place] [address] Scheduled Procedures Name Priority Associated Diagnoses Date/Ti [...] Additional history exists Influenza Vaccine (FLU shot) (Season Ended) 2023 01/11/2022, 12/18/2019, 11/22/2018, Additional history exists [...] Discontinued 08/17/2021, 08/17/2021, 03/09/2016, Additional history exists GARDASIL-HPV IMMUNIZATION SERIES Aged Out No longer [...] the patient have Health Care Power of Mobility Architect? Yes, not currently available Care Teams Make Up Worker Relationship Specialty Start Date End Date Kaz Rivas III, MD [address] [facility] [place] [place] [address] PCP - General 10/25/1995 documented as of this encounter
--- OUTSIDE RECORDS SUMMARY | 2024-01-26 10:44 | External Medical Summary | Summary of Care ---
Author Name Unknown Organization [facility] Address [address] [place] [address] Phone [phone] Care Team Providers Care Supervisor Color Making Name Role Phone Evelyn FRANZ MD, Kaz Canela Primary Care Provider [phone] Reason for Visit * Reason Comments Patient Assistance Program Encounter Details Date Type Department Care Team (Late st Contact Info) Description 06/07/2022 Documentation Hematology Oncology [facility] [address] [place] [address] Stan Parra MD [address] [place] [address] Allergies Active Allergy Reactions Criticality Noted Date Comments Levofloxacin Muscle pain 02/07/2018 Oxycodone Nausea/vomiting 02/07/2018 documented as of this encounter (statuses as of 09/21/2023) Medications Medication Sig Dispensed Refills Start Date [...] as of this encounter (statuses as of 09/21/2023) Active Problems Problem Noted Date Diagnosed Date [...] as of this encounter (statuses as of 09/21/2023) Resolved Problems Problem Noted Date Diagnosed Date Resolved Date Supraclavicular lymphadenopathy 02/11/2016 01/02/2018 Screening for prostate cancer 04/15/2003 05/20/2008 Overview: Resolved per Screening Diagnosis Protocol #6 Acute cholecystitis 11/25/2002 05/07/19 19 Diaphragmatic hernia 019 documented as of this encounter (statuses as of 09/21/2023) Immunizations Name Administration Dates Next Due COVID-19 [...] No 05/14/2023 Does the household have a [facility] source of income? (Household - for [...] - 09/21/2023 2:42 PM EDT Krysta Lr, group home supervisor 09/21/2023 14:29 Medication received 09/21/23 Estimated Delivery Date: gsp - order med 12/15/2023 * Jordan Andrade OSA - 09/14/2023 7:42 AM EDT POM Reason: Insurance mandated Insurance Info: [employer]na Medicare Advantage Auth Expirin06/05/2025 Pharmacy/Company: [facility] Phone number: IM install technician [place] Location: [facility] Estimated Delivery Date: [facility] - 09/21/2023 Appointment Date: 09/28/2023 Ordered Date: 09/14/2023 Delivery Address: Attn: 6th floor IIP POM [address] [place] [address] RX: Eligard Dose: 22.5mg 3 mo Quantity: [...] - 06/14/2023 3:07 PM EDT Krysta Lr, group home supervisor 06/14/2023 12:40 Received 1 Eligard 22.5 Kit 06/14/23 Estimated Delivery Date: [facility] - order med 09/14/2023 * Jordan Andrade OSA - 06/05/2023 9:19 AM EDT POM Reason: Insurance mandated Insurance Info: [employer]na Medicare Advantage Auth Expirin06/05/2025 Pharmacy/Company: [facility] Phone number: IM install technician [place] Location: [facility] Estimated Delivery Date: [facility] - 06/14/2023 Appointment Date: 06/22/2023 Ordered Date: 06/05/2023 Delivery Address: Attn: 6th floor IIP POM [address] [place] [address] RX: Eligard Dose: 22.5mg 3 mo Quantity: [...] C61 Prostate Cancer * Mary Jo Gar group home supervisor - 03/21/2023 3:56 PM EST 03/21/2023 - Received medication. Defer to 05/16/2023 to order refill. Estimated Delivery Date: received 03/21/2023 - gsp Appointment Date: 03/16/2023 Ordered Date: 03/02/2023 Delivery Address: Attn: 6th floor IIP [address] [place] [address] RX: Eligard Dose: 22.5mg 3 mo Quantity: 1 Manufactured Supplied: No Refills remaining: Injection Number for this order: Next Refill: 05/16/2023 Upcoming Appt: 05/30/2023 * Jordan Andrade OSA - 03/14/2023 2:29 PM EST 03/15/2023 - "Caterina, our buying team said they are waiting to hear from a telephone services sales representative from [facility] regarding the ordering [...] Mcwilliams 03/14/2023 - Per Vida Kelly at [facility] "Piyush Weissgard did not come in today [facility] [...] Info: [employer] Medicare Advantage Auth Expirin06/05/2025 Pharmacy/Company: [facility] Phone number: IM install technician [place] Location: [facility] Estimated Delivery Date: 03/21/2023 - [facility] Appointment Date: 03/16/2023 Ordered Date: 03/02/2023 Delivery Address: Attn: 6th floor IIP [facility] [address] [place] [address] RX: Eligard Dose: 22.5mg 3 mo Quantity: [...] defer to 03/02/2023 to order Eligard from [facility] * Galina Barnett OSA - 12/06/2022 2:21 PM EDT KHOI Delvalle Tech 12/06/2022 13:58 | Received 1 kit of Eligard 12/06/2022 Estimated Delivery Date: Received 12/06/2022-[facility] ABEL Donald [facility] 12/06/2022, 2:21 PM * Mary Jo Gar group home supervisor - 11/27/2022 9:02 AM EDT 11/27/2022 - IM'd [facility] to fill. Medication ordered. Defer to 12/06/2022 for delivery. POM Reason: Insurance mandated Insurance Info: [employer]na Medicare Advantage Auth Expirin06/05/2025 Pharmacy/Company: [facility] Phone number: IM install technician [place] Location: [facility] Estimated Delivery Date: 12/06/2022 - gsp Appointment Date: 12/11/2022 Ordered Date: 11/27/2022 Delivery Address: Attn: 6th floor IIP POM [address] [place] [address] RX: Eligard Dose: 22.5mg 3 mo Quantity: [...] [facility] 11/27/2022, 1:19 PM * Mary Jo Gar group home supervisor - 11/20/2022 12:01 PM EDT 11/20/2022 - Defer to 01/27/2023 to order refill. ABEL Cerrato [facility] 11/20/2022, 12:02 PM * Mary Jo Gar group home supervisor - 08/31/2022 10:15 AM EDT 09/08/2022 - Received medication per pharmacy staff. Defer 11/20/2022 for refill. 08/31/2022 - IM'd [facility] for refill. Defer to 09/07/2022 for delivery. POM Reason: Insurance mandated Insurance Info: A[employer]na Medicare Advantage Auth Expirin06/05/2025 Pharmacy/Company: [facility] Phone number: IM install technician [place] Location:[facility] Estimated Delivery Date: received 09/07/2022 - gsp Appointment Date: 09/11/2022 Ordered Date:08/31/2022 Delivery Address:Attn: 6th floor IIP [address] [place] [address] RX:Eligard Dose:22.5mg 3 mo Quantity:1 Manufactured Supplied:No [...] [facility] 08/31/2022, 10:18 AM * Liza Hoff OSA - 06/15/2022 2:56 PM EDT Estimated Delivery Date: Received 06/15/2022 - [facility] * Mary Jo Gar group home supervisor - 06/14/2022 11:44 AM EDT 06/14/2022 - IM'd [facility] to fill script. Defer to 06/15/2022 for delivery. POM Reason: Insurance mandated Insurance Info: [employer]na Medicare Advantage Auth Expirin06/05/2025 Pharmacy/Company: [facility] Phone number: IM install technician [place] Location: [facility] Estimated Delivery Date: 06/15/2022 - [facility] Appointment Date: 06/16/2022 Ordered Date:06/14/2022 Delivery Address: Attn: 6th floor IIP POM [address] [place] [address] RX: Eligard Dose: 22.5mg 3 mo Quantity: [...] [facility] 06/14/2022, 11:50 AM * Galina Barnett OSA - 06/07/2022 9:47 AM EDT 06/07/2022- Reached out to Alba Iqbal for test claim POM Reason: Insurance Info: Auth Expiring: Pharmacy/Company: Phone number: [place] Location: [facility] Estimated Delivery Date: TBD Appointment Date: Ordered Date: Delivery Address: Attn: 6th floor IIP POM [address] [place] [address] RX: Eligard Dose: 22.5mg 3 mo Quantity: [...] Description 09/28/2023 1:00 PM EDT Laboratory Laboratory, [address] [address] [facility], Lab [address] [place] [address] 09/28/2023 2:00 PM EDT Telemedicine Hematology/Oncology, [address] [address] Stan Parra MD Formerly named [facility] [place] [address] Cart, Telemed [facility] Hem Onc Clinic [address] [place] [address] 09/28/2023 2:30 PM EDT Immunization/Injection Hematology/Oncology Treatment, [address] [address] [facility], Chair3 Hem Onc [address] [place] [address] 10/26/2023 9:30 AM EDT Pharmacy Pharmacy Hematology Oncology [place] [address] [place] [address] [facility] Hem/Onc Formerly named [facility] [place] [address] 11/06/2023 9:45 AM EDT Imaging Radiology [facility] 1st [facility] [address] [place] [address] 11/14/2023 1:00 PM EDT Office Visit Radiation Oncology, [facility] [address] [place] [address] IovoliDragan MD [address] [place] [address] 12/03/2023 9:00 AM EDT Office Visit Family Practice [facility] [address] [place] [address] EvelynKaz napier III, MD [address] [facility] [place] [address] Scheduled Procedures Name Priority Associated Diagnoses Date/Ti [...] the patient have Health Care Power of Welding Machine Operator Friction? Yes, not currently available Care Teams Supervisor Color Making Relationship Specialty Start Date End Date Kaz Rivas III, MD [address] [place] [address] PCP - General 10/25/1995 documented as of this encounter
--- OUTSIDE RECORDS SUMMARY | 2024-01-26 10:44 | External Medical Summary ---
Author Name Unknown Address Unknown Organization [id number]:[facility] [address] [facility] [place] [address] Laboratory Report Ordering Provider Test Date Status JESÚS BESS 09/28/2023 12:44:39 Final Observation Date Value Abnormality Reference (Units ) Status SYNC LEUKOCYTES IN BLOOD BY AUTOMATED COUNT 09/28/2023 12:44:39 6.16 4.00-10.80 (K/uL) Final Segs 09/28/2023 12:44:39 87.3 Above high normal 40.0-75.0 (%) Final Lymphs % 09/28/2023 12:44:39 7.5 Below low normal 18.0-42.0 (%) Final Monos 09/28/2023 12:44:39 4.5 1.0-11.0 (%) Final Eosinophils 09/28/2023 12:44:39 0.3 0.0-6.0 (%) Final Basos 09/28/2023 12:44:39 0.2 0.0-2.0 (%) Final Immature Granulocyte, Percent 09/28/2023 12:44:39 0.2 0.0-2.0 (%) Final Absolute Segs 09/28/2023 12:44:39 5.38 1.80-7.70 (K/uL) Final Lymphs, absolute 09/28/2023 12:44:39 0.46 Below low normal 1.00-4.80 (K/ul) Final Monos, Abs 09/28/2023 12:44:39 0.28 0.00-1.10 (K/uL) Final Eos, Abs 09/28/2023 12:44:39 0.02 0.00-0.70 (K/uL) Final Basos, Abs 09/28/2023 12:44:39 0.01 0.00-0.20 (K/uL) Final Immature Granulocytes, Number 09/28/2023 12:44:39 0.01 0.00-0.20 (K/uL) Final Performing Location [facility] - [address] [place], [place] [address]. [place] [address]
--- OUTSIDE RECORDS SUMMARY | 2024-01-26 10:44 | External Medical Summary ---
Author Name Unknown Address Unknown Organization K09:[facility] [address] Laboratory Report Ordering Provider Test Date Status JESÚS BESS 08/24/2023 13:05:14 Final Observation Date Value Abnormality Reference (Units ) Status WBC, Total 08/24/2023 13:05:14 6.35 4.00-10.8 0 (K/uL) Final RBC 08/24/2023 13:05:14 4.22 4.50-5.25 (M/uL) Final Hemoglobin 08/24/2023 13:05:14 12.9 Below low normal 14 .0-16.8 (g/dL) Final HCT 08/24/2023 13:05:14 38.6 Below low normal 40. 0-48.4 (%) Final MCV 08/24/2023 13:05:14 91.5 82.0-99.5 (fL) Final MCH 08/24/2023 13:05:14 30.6 27.0-34.0 (pg) Final MCHC 08/24/2023 13:05:14 33.4 32.0-36.0 (g/dL) Final RDW 08/24/2023 13:05:14 13.8 11.5-15.5 (%) Final Platelets 08/24/2023 13:05:14 147 140-400 (K /uL) Final MPV 08/24/2023 13:05:14 10.4 6.6-11.1 ( fL) Final Performing Location [facility] [address]
--- OUTSIDE RECORDS SUMMARY | 2024-01-26 10:44 | External Medical Summary | Summary of Care ---
Author Name Unknown Organization [facility] Address [address] [place] [address] Phone [phone] Care Team Providers Care Video Technician Name Role Phone Evelyn FRANZ MD, Kaz Canela Primary Care Provider [phone] Reason for Visit * Reason Comments Patient Assistance Program Encounter Details Date Type Department Care Team (Late st Contact Info) Description 06/07/2022 Documentation Hematology Oncology [facility] [address] [place] [address] Stan Parra MD [address] [place] [address] Allergies Active Allergy Reactions Criticality Noted Date Comments Levofloxacin Muscle pain 02/07/2018 Oxycodone Nausea/vomiting 02/07/2018 documented as of this encounter (statuses as of 09/07/2023) Medications Medication Sig Dispensed Refills Start Date [...] as of this encounter (statuses as of 09/07/2023) Active Problems Problem Noted Date Diagnosed Date [...] as of this encounter (statuses as of 09/07/2023) Resolved Problems Problem Noted Date Diagnosed Date Resolved Date Supraclavicular lymphadenopathy 02/11/2016 01/02/2018 Screening for prostate cancer 04/15/2003 05/20/2008 Overview: Resolved per Screening Diagnosis Protocol #6 Acute cholecystitis 11/25/2002 05/07/19 19 Diaphragmatic hernia 019 documented as of this encounter (statuses as of 09/07/2023) Immunizations Name Administration Dates Next Due COVID-19 [...] No 05/14/2023 Does the household have a [email or web address] source of income? (Household - for ages [...] Progress Notes * Jordan Andrade OSA - 06/14/2023 3:07 PM EDT Krysta Lr, gas leak inspector 06/14/2023 12:40 Received 1 Elielviad 22.5 Kit 06/14/23 Estimated Delivery Date: [facility] - order med 09/14/2023 * Jordan Andrade OSA - 06/05/2023 9:19 AM EDT POM Reason: Insurance mandated Insurance Info: Aetna Medicare Advantage Auth Expirin06/05/2025 Pharmacy/Company: [facility] Phone number: MARS textile science technician [place] Location: [facility] Estimated Delivery Date: [facility] - 06/14/2023 Appointment Date: 06/22/2023 Ordered Date: 06/05/2023 Delivery Address: Attn: 6th floor IIP POM [address] [place] [address] RX: Eligard Dose: 22.5mg 3 mo Quantity: [...] C61 Prostate Cancer * Mary Jo Gar, gas leak inspector - 03/21/2023 3:56 PM EST 03/21/2023 - Received medication. Defer to 05/16/2023 to order refill. Estimated Delivery Date: received 03/21/2023 - [facility] Appointment Date: 03/16/2023 Ordered Date: 03/02/2023 Delivery Address: Attn: 6th floor IIP POM [address] [place] [address] RX: Eligard Dose: 22.5mg 3 mo Quantity: 1 Manufactured Supplied: No Refills remaining: Injection Number for this order: Next Refill: 05/16/2023 Upcoming Appt: 05/30/2023 * Jordan Andrade OSA - 03/14/2023 2:29 PM EST 03/15/2023 - "Caterina, our buying team said they are waiting to hear from a industrial sales representative from [facility] regarding the ordering issue but [...] 03/14/2023 - Per Vida Kelly at [facility] "Piyush Weissgard did not come in today [facility] Vida Mcwilliams is working with the buying team to see if it'll come tomorrow." Message to Vida Mcwilliams to keep updated on progress, appt has been moved from 03/16 to 03/23. Push out 1 day to follow up on drug status. Estimated Delivery Date: Missing Iselaelviad, Pending Alternative - appt 03/23 * Jordan Andrade OSA - 03/02/2023 8:00 AM EST POM Reason: Insurance mandated Insurance Info: Aetna Medicare Advantage Auth Expirin06/05/2025 Pharmacy/Company: [facility] Phone number: IM textile science technician [place] Location: [facility] Estimated Delivery Date: 03/21/2023 - [facility] Appointment Date: 03/16/2023 Ordered Date: 03/02/2023 Delivery Address: Attn: 6th floor IIP POM [address] [place] [address] RX: Eligard Dose: 22.5mg 3 mo Quantity: [...] - 12/06/2022 2:21 PM EDT Krysta Lr, gas leak inspector 12/06/2022 13:58 | Received 1 kit of Eligard 12/06/2022 Estimated Delivery Date: Received 12/06/2022-[facility] ABEL Donald [facility] 12/06/2022, 2:21 PM * Mary Jo Gar gas leak inspector - 11/27/2022 9:02 AM EDT 11/27/2022 - IM'd [facility] to fill. Medication ordered. Defer to 12/06/2022 for delivery. POM Reason: Insurance mandated Insurance Info: Aetna Medicare Advantage Auth Expirin06/05/2025 Pharmacy/Company: [facility] Phone number: IM textile science technician [place] Location: [facility] Estimated Delivery Date: 12/06/2022 - [facility] Appointment Date: 12/11/2022 Ordered Date: 11/27/2022 Delivery Address: Attn: 6th floor IIP [facility] [address] [facility] [place] [address] RX: Eligard Dose: 22.5mg 3 mo Quantity: [...] 4 DX: C61 Prostate Cancer Mary Jo Gar, ABEL [facility] Med [facility] 11/27/2022, 1:19 PM * Mary Jo Gar gas leak inspector - 11/20/2022 12:01 PM EDT 11/20/2022 - Defer to 01/27/2023 to order refill. ABEL Cerrato [facility] 11/20/2022, 12:02 PM * Mary Jo Gar gas leak inspector - 08/31/2022 10:15 AM EDT 09/08/2022 - Received medication per pharmacy staff. Defer 11/20/2022 for refill. 08/31/2022 - IM'd [facility] for refill. Defer to 09/07/2022 for delivery. POM Reason: Insurance mandated Insurance Info: Aetna Medicare Advantage Auth Expirin06/05/2025 Pharmacy/Company: [facility] Phone number: IM textile science technician [place] Location:[facility] Estimated Delivery Date: received 09/07/2022 - [facility] Appointment Date: 09/11/2022 Ordered Date:08/31/2022 Delivery Address:Attn: 6th floor IIP POM [address] [place] [address] RX:Eligard Dose:22.5mg 3 mo Quantity:1 Manufactured Supplied:No Refills remaining: Injection Number for this order: 2nd of 4 Paid Claim at time of order: Valid Prior Auth on File at Ordering Pharmacy: Commercial Insurance: Co pay card on file: Medicare Insurance: Co pay assistance: Last Treatment Date:06/16/2022 Next Refill: 11/20/2022 Upcoming Appt: 12/04/2022 Prescribing Physician:Stan Parra [place] Schedule:Q3 months x 4 DX:C61 Prostate Cancer Mary Jo Gar [facility] 08/31/2022, 10:18 AM * Liza Hoff OSA - 06/15/2022 2:56 PM EDT Estimated Delivery Date: Received 06/15/2022 - [facility] * Mary Jo Gar gas leak inspector - 06/14/2022 11:44 AM EDT 06/14/2022 - IM'd [facility] to fill script. Defer to 06/15/2022 for delivery. POM Reason: Insurance mandated Insurance Info: Aetna Medicare Advantage Auth Expirin06/05/2025 Pharmacy/Company: [facility] Phone number: IM textile science technician [place] Location: [facility] Estimated Delivery Date: 06/15/2022 - [facility] Appointment Date: 06/16/2022 Ordered Date:06/14/2022 Delivery Address: Attn: 6th floor IIP POM [address] [place] [address] RX: Eligard Dose: 22.5mg 3 mo Quantity: [...] Pharmacy/Company: Phone number: [place] Location: [facility] Estimated Delivery Date: TBD Appointment Date: Ordered Date: Delivery Address: Attn: 6th floor IIP POM [address] [place] [address] [place] [address] RX: Eligard Dose: 22.5mg 3 mo Quantity: [...] Description 09/28/2023 1:00 PM EDT Laboratory Laboratory, [address] [address] [facility], Lab [address] [place] [address] 09/28/2023 2:00 PM EDT Telemedicine Hematology/Oncology, [address] [place] [address] Stan Parra MD [address] [place] [address] Cart, Telemed [facility] Hem Onc Clinic [address] [place], [place] [address] [address] 09/28/2023 2:30 PM EDT Immunization/Injection Hematology/Oncology [address], [address] [address] [facility], Chair3 Hem Onc [address] [place], [place] [address] [address] 10/26/2023 9:30 AM EDT Pharmacy Pharmacy Hematology Oncology [facility] [place] [address] [place] [address] [facility] Hem/Onc [address] [place] [address] 11/06/2023 9:45 AM EDT Imaging Radiology [address], [place] [address] [place] [address] 11/14/2023 1:00 PM EDT Office Visit Radiation Oncology, [facility] [address] [place] [address] Crescencio Obrien MD [address] [place] [address] 12/03/2023 9:00 AM EDT Office Visit Family Practice [facility] [address] [place] [address] Kaz Rivas III, MD [address] [place] [address] Scheduled Procedures Name Priority Associated Diagnoses Date/Ti [...] the patient have Health Care Power of Sand Technician? Yes, not currently available Care Teams Video Technician Relationship Specialty Start Date End Date Kaz Rivas III, MD [address] [place] [address] PCP - General 10/25/1995 documented as of this encounter
--- OUTSIDE RECORDS SUMMARY | 2024-01-26 10:44 | External Medical Summary | Summary of Care ---
Author Name Unknown Organization [facility] Address [address] [place] [address] Phone [phone] Care Team Providers Care Machine Feed Operator Name Role Phone Evelyn FRANZ MD, Kaz Canela Primary Care Provider [phone] Reason for Visit * Reason Comments Patient Assistance Program Encounter Details Date Type Department Care Team (Late st Contact Info) Description 06/07/2022 Documentation Hematology Oncology [facility] [address] [place] [address] Stan Parra MD [address] [place] [address] Allergies Active Allergy Reactions Criticality Noted Date Comments Levofloxacin Muscle pain 02/07/2018 Oxycodone Nausea/vomiting 02/07/2018 documented as of this encounter (statuses as of 09/14/2023) Medications Medication Sig Dispensed Refills Start Date [...] as of this encounter (statuses as of 09/14/2023) Active Problems Problem Noted Date Diagnosed Date [...] as of this encounter (statuses as of 09/14/2023) Resolved Problems Problem Noted Date Diagnosed Date Resolved Date Supraclavicular lymphadenopathy 02/11/2016 01/02/2018 Screening for prostate cancer 04/15/2003 05/20/2008 Overview: Resolved per Screening Diagnosis Protocol #6 Acute cholecystitis 11/25/2002 05/07/19 19 Diaphragmatic hernia 019 documented as of this encounter (statuses as of 09/14/2023) Immunizations Name Administration Dates Next Due COVID-19 [...] No 05/14/2023 Does the household have a [facility]? (Household - [...] Progress Notes * Jordan Andrade OSA - 09/14/2023 7:42 AM EDT POM Reason: Insurance mandated Insurance Info: Aetna Medicare Advantage Auth Expirin06/05/2025 Pharmacy/Company: [facility] Phone number: IM fire technician [place] Location: [facility] Estimated Delivery Date: [facility] - 09/21/2023 Appointment Date: 09/28/2023 Ordered Date: 09/14/2023 Delivery Address: Attn: 6th floor IIP POM [address] [place] [address] RX: Eligard Dose: 22.5mg 3 mo Quantity: [...] - 06/14/2023 3:07 PM EDT Krysta Lr, verification lead 06/14/2023 12:40 Received 1 Eligard 22.5 Kit 06/14/23 Estimated Delivery Date: [facility] - order med 09/14/2023 * Jordan Andrade OSA - 06/05/2023 9:19 AM EDT POM Reason: Insurance mandated Insurance Info: Aetna Medicare Advantage Auth Expirin06/05/2025 Pharmacy/Company: [facility] Phone number: IM fire technician [place] Location: [facility] Estimated Delivery Date: [facility] - 06/14/2023 Appointment Date: 06/22/2023 Ordered Date: 06/05/2023 Delivery Address: Attn: 6th floor IIP POM [address] [place] [address] RX: Eligard Dose: 22.5mg 3 mo Quantity: [...] C61 Prostate Cancer * Mary Jo Gar, verification lead - 03/21/2023 3:56 PM EST 03/21/2023 - Received medication. Defer to 05/16/2023 to order refill. Estimated Delivery Date: received 03/21/2023 - [facility] Appointment Date: 03/16/2023 Ordered Date: 03/02/2023 Delivery Address: Attn: 6th floor IIP POM [address] [place] [address] RX: Eligard Dose: 22.5mg 3 mo Quantity: 1 Manufactured Supplied: No Refills remaining: Injection Number for this order: Next Refill: 05/16/2023 Upcoming Appt: 05/30/2023 * Jordan Andrade OSA - 03/14/2023 2:29 PM EST 03/15/2023 - "Caterina, our buying team said they are waiting to hear from a medical collections representative from [facility] regarding the ordering issue but we [...] Mcwilliams 03/14/2023 - Per Vida Kelly at [facility] "Piyush Weissgard did not come in today [facility] Vida Mcwilliams is working with the buying team to see if it'll come tomorrow." Message to Vida Mcwilliams to keep updated on progress, appt has been moved from 03/16 to 03/23. Push out 1 day to follow up on drug status. Estimated Delivery Date: Missing Eligard, Pending Alternative - appt 1/12 * Jordan Andrade OSA - 03/02/2023 8:00 AM EST POM Reason: Insurance mandated Insurance Info: Aetna Medicare Advantage Auth Expirin06/05/2025 Pharmacy/Company: [facility] Phone number: IM fire technician [place] Location: [facility] Estimated Delivery Date: 03/21/2023 - P Appointment Date: 03/16/2023 Ordered Date: 03/02/2023 Delivery Address: Attn: 6th floor IIP POM [address] [place] [address] RX: Eligard Dose: 22.5mg 3 mo Quantity: [...] defer to 03/02/2023 to order Eligard from [facility] * Galina Barnett OSA - 12/06/2022 2:21 PM EDT Krysta Lr, verification lead 12/06/2022 13:58 | Received 1 kit of Eligard 12/06/2022 Estimated Delivery Date: Received 12/06/2022-[facility] ABEL Donald [facility] 12/06/2022, 2:21 PM * Mary Jo Gar verification lead - 11/27/2022 9:02 AM EDT 11/27/2022 - IM'd [facility] to fill. Medication ordered. Defer to 12/06/2022 for delivery. POM Reason: Insurance mandated Insurance Info: Aetna Medicare Advantage Auth Expirin06/05/2025 Pharmacy/Company: [facility] Phone number: IM fire technician [place] Location: [facility] Estimated Delivery Date: 12/06/2022 - [facility] Appointment Date: 12/11/2022 Ordered Date: 11/27/2022 Delivery Address: Attn: 6th floor IIP POM [address] [place] [address] RX: Eligard Dose: 22.5mg 3 mo Quantity: [...] DX: C61 Prostate Cancer ABEL Cerrato [facility] 11/27/2022, 1:19 PM * Mary Jo Gar verification lead - 11/20/2022 12:01 PM EDT 11/20/2022 - Defer to 01/27/2023 to order refill. ABEL Cerrato [facility] 11/20/2022, 12:02 PM * Mary Jo Gar verification lead - 08/31/2022 10:15 AM EDT 09/08/2022 - Received medication per pharmacy staff. Defer 11/20/2022 for refill. 08/31/2022 - IM'd [facility] for refill. Defer to 09/07/2022 for delivery. POM Reason: Insurance mandated Insurance Info: Aetna Medicare Advantage Auth Expirin06/05/2025 Pharmacy/Company: [email or web address] Phone number: IM fire technician [place] Location:[facility] Estimated Delivery Date: received 09/07/2022 - [facility] Appointment Date: 09/11/2022 Ordered Date:08/31/2022 Delivery Address:Attn: 6th floor IIP POM [address] [place] [address] RX:Eligard Dose:22.5mg 3 mo Quantity:1 Manufactured Supplied:No [...] 4 DX:C61 Prostate Cancer ABEL Cerrato [facility] 08/31/2022, 10:18 AM * Liza Hoff OSA - 06/15/2022 2:56 PM EDT Estimated Delivery Date: Received 06/15/2022 - [facility] * Mary Jo Gar verification lead - 06/14/2022 11:44 AM EDT 06/14/2022 - IM'd [facility] to fill script. Defer to 06/15/2022 for delivery. POM Reason: Insurance mandated Insurance Info: Aetna Medicare Advantage Auth Expirin06/05/2025 Pharmacy/Company: [email or web address] Phone number: IM fire technician [place] Location: [facility] Estimated Delivery Date: 06/15/2022 - [facility] Appointment Date: 06/16/2022 Ordered Date:06/14/2022 Delivery Address: [facility] [address] [place] [address] RX: Eligard Dose: 22.5mg 3 mo Quantity: [...] DX: C61 Prostate Cancer ABEL Cerrato [facility] 06/14/2022, 11:50 AM * Galina Barnett OSA - 06/07/2022 9:47 AM EDT 06/07/2022- Reached out to Alba Iqbal for test claim POM Reason: Insurance Info: Auth Expiring: Pharmacy/Company: Phone number: [place] Location: [facility] Estimated Delivery Date: TBD Appointment Date: Ordered Date: Delivery Address: Attn: [facility] floor [address] [address] RX: Eligard Dose: 22.5mg 3 mo Quantity: [...] DX: C61 Prostate Cancer ABEL Donald [facility] 06/07/2022, 10:14 AM documented in this encounter Plan of Treatment Upcoming Encounters Date Type Department Care Team (Late st Contact Info) Description 09/28/2023 1:00 PM EDT Laboratory Laboratory, [address] [id number] [facility], Lab [address] [place] [address] 09/28/2023 2:00 PM EDT Telemedicine Hematology/Oncology, [address] [address] Stan Parra MD [address] [place] [address] Dawna Baered [facility] Hem Onc Clinic [address] [place] [address] 09/28/2023 2:30 PM EDT Immunization/Injection Hematology/Oncology Treatment, [address] [address] [facility], Chair3 Hem Onc [address] [place] [address] 10/26/2023 9:30 AM EDT Pharmacy Pharmacy Hematology Oncology [facility] [address] [place] [address] [facility] Hem/Onc [address] [place] [address] 11/06/2023 9:45 AM EDT Imaging Radiology [facility]st [facility] [place] 132 [facility] [place] [address] 11/14/2023 1:00 PM EDT Office Visit Radiation Oncology, [facility] [address] [place] [address] Crescencio Obrien MD [address] [place] [address] 12/03/2023 9:00 AM EDT Office Visit Family Practice [facility] [place] 200 [facility] [place] [address] Kaz Rivas III, MD 200 [facility] [place] [address] Scheduled Procedures Name Priority Associated Diagnoses Date/Ti [...] Cancer Screening 08/17/2026 Lipid Panel 06/21/2028 06/22/2023, 100 04/2022, 04/14/2022, Additional history exists Pneumococcal Vaccine: [...] 12:08 AM EST Influenza (seasonal) 05/15/2023 05/15/2023 12:19 AM EDT documented as of this [...] patient have Health Care Power of Field Care Advocate? Yes, not currently available Care Teams Machine Feed Operator Relationship Specialty Start Date End Date Kaz Rivas III, MD 200 [facility] [place] [address] PCP - General 10/25/1995 documented as of this encounter
--- OUTSIDE RECORDS SUMMARY | 2024-01-26 10:44 | External Medical Summary | Summary of Care ---
Author Name Unknown Organization [facility] Address [address] [place] [address] Phone [phone] Care Team Providers Care Mold Inspector Name Role Phone Evelyn FRANZ MD, Kaz Canela Primary Care Provider [phone] Reason for Visit * Reason Comments Outpatient Testing Encounter Details Date Type Department Care Team (Late st Contact Info) Description 09/28/2023 1:00 PM EDT Laboratory Laboratory, [facility] [address] [place] [address] [facility], Lab [address] [place], [place] [id number] Malignant neoplasm of prostate (HCC) Allergies Active [...] Description 09/28/2023 2:00 PM EDT Telemedicine Hematology/Oncology, [address] [place] [address] Stan Parra MD [address] [place] [address] Buffy, Telemed [facility] Hem Onc Clinic [address] [place], [place] [address] [address] 09/28/2023 2:30 PM EDT Immunization/Injection Hematology/Oncology Treatment, [address] [place] [address] [facility], Chair3 Hem Onc [address] [place], [place] [address]bertha [place] [address] 10/26/2023 9:30 AM EDT Pharmacy Pharmacy Hematology Oncology [facility] [address] [place] [address] [facility] Hem/Onc [address] [place] [address] 11/06/2023 9:45 AM EDT Imaging Radiology [address], [place] [address] [place] [address] 11/14/2023 1:00 PM EDT Office Visit Radiation Oncology, [facility] [address] [place] [address] IovoliDragan MD [address] [place] [address] 12/03/2023 9:00 AM EDT Office Visit Family Practice [facility] [address] [place] [address] Kaz Rivas III, MD [address] [facility] [place] [address] Pending Results Name Type Priority Associated Diagnoses [...] 75.0 % 09/28/2023 12:51 PM EDT LABORATORY [facility] Lymphocytes % 7.5(L) 18.0 - 42.0 % 09/28/2023 12:51 PM EDT LABORATORY [facility] Monocytes % 4.5 1.0 - 11.0 % 09/28/2023 12:51 PM EDT LABORATORY [facility] Eosinophils % 0.3 0.0 - 6.0 % 09/28/2023 12:51 PM EDT LABORATORY [facility] Basophils % 0.2 0.0 - 2.0 % 09/28/2023 12:51 PM EDT LABORATORY [facility] Immature Granulocytes % 0.2 0.0 - 2.0 % 09/28/2023 12:51 PM EDT LABORATORY [facility] Absolute Neutrophils 5.38 1.80 - 7.70 K/uL 09/28/2023 12:51 PM EDT LABORATORY [facility] Absolute Lymphocytes 0.46(L) 1.00 - 4.80 K/ul 09/28/2023 12:51 PM EDT LABORATORY [facility] Absolute Monocytes 0.28 0.00 - 1.10 K/uL 09/28/2023 12:51 PM EDT LABORATORY [facility] Absolute Eosinophils 0.02 0.00 - 0.70 K/uL 09/28/2023 12:51 PM EDT LABORATORY [facility] Absolute Basophils 0.01 0.00 - 0.20 K/uL 09/28/2023 12:51 PM EDT LABORATORY [facility] Absolute Immature Granulocytes 0.01 0.00 - 0.20 K/uL 09/28/2023 12:51 PM EDT LABORATORY [facility] Blood Venous blood specimen / Unknown Venipuncture / Unknown 09/28/2023 12:44 PM EDT 09/28/2023 12:45 PM EDT Stan Parra MD LAB [facility] [address] [address] * (ABNORMAL) CBC (09/28/2023 12:44 [...] LAB [facility] [address] [place] [address] documented in this encounter Visit [...] the patient have Health Care Power of In Home Caregiver? Yes, not currently available Care Teams Mold Inspector Relationship Specialty Start Date End Date Kaz Rivas III, MD [address] [place] [address] PCP - General 10/25/1995 documented as of this encounter
--- OUTSIDE RECORDS SUMMARY | 2024-01-26 10:44 | External Medical Summary | Summary of Care ---
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 (Household - [...] - 09/21/2023 2:42 PM EDT Krysta Lr, rn appeals 09/21/2023 14:29 Medication received 09/21/23 Estimated Delivery Date: gsp - order med 12/15/2023 * Jordan Andrade OSA - 09/14/2023 7:42 AM EDT POM Reason: Insurance mandated Insurance Info: [employer] Medicare Advantage Auth Expirin06/05/2025 Pharmacy/Company: [facility] Phone number: IM claims technician [place] Location: [facility] Estimated Delivery Date: [facility] - 09/21/2023 Appointment Date: 09/28/2023 Ordered Date: 09/14/2023 Delivery Address: Attn: 6th floor IIP [facility] [address] [place] [address] RX: Eligard Dose: 22.5mg 3 mo Quantity: [...] 4 DX: C61 Prostate Cancer * Jordan nAdrade OSA - 06/14/2023 3:07 PM EDT Krysta Lr, rn appeals 06/14/2023 12:40 Received 1 Eligard 22.5 Kit 06/14/23 Estimated Delivery Date: [facility] - order med 09/14/2023 * Jordan Andrade OSA - 06/05/2023 9:19 AM EDT POM Reason: Insurance mandated Insurance Info: [employer] Medicare Advantage Auth Expirin06/05/2025 Pharmacy/Company: [facility] Phone number: IM claims technician [place] Location: [facility] Estimated Delivery Date: [facility] - 06/14/2023 Appointment Date: 06/22/2023 Ordered Date: 06/05/2023 Delivery Address: Attn: 6th floor IIP [address] [place] [address] RX: Eligard Dose: 22.5mg 3 mo Quantity: [...] C61 Prostate Cancer * Mary Jo Gar rn appeals - 03/21/2023 3:56 PM EST 03/21/2023 - Received medication. Defer to 05/16/2023 to order refill. Estimated Delivery Date: received 03/21/2023 - gsp Appointment Date: 03/16/2023 Ordered Date: 03/02/2023 Delivery Address: Attn: 6th floor IIP [address] [place] [address] RX: Eligard Dose: 22.5mg 3 mo Quantity: 1 Manufactured Supplied: No Refills remaining: Injection Number for this order: Next Refill: 05/16/2023 Upcoming Appt: 05/30/2023 * Jordan Andrade OSA - 03/14/2023 2:29 PM EST 03/15/2023 - "Caterina, our buying team said they are waiting to hear from a employer relations representative from [facility] regarding the ordering issue but we [...] Mcwilliams 03/14/2023 - Per Vida Kelly at [facility] "Piyush Weissgard did not come in today [facility] Vida Mcwilliams is working with the buying [...] Info: [employer] Medicare Advantage Auth Expirin06/05/2025 Pharmacy/Company: [facility] Phone number: IM claims technician [place] Location: [facility] Estimated Delivery Date: 03/21/2023 - [facility] Appointment Date: 03/16/2023 Ordered Date: 03/02/2023 Delivery Address: Attn: 6th floor IIP [facility] [address] [place] [address] RX: Eligard Dose: 22.5mg 3 mo Quantity: [...] defer to 03/02/2023 to order Eligard from [facility] * Galina Barnett OSA - 12/06/2022 2:21 PM EDT KHOI Delvalle Tech 12/06/2022 13:58 | Received 1 kit of Eligard 12/06/2022 Estimated Delivery Date: Received 12/06/2022-[facility] ABEL Donald [facility] 12/06/2022, 2:21 PM * Mary Jo Gar rn appeals - 11/27/2022 9:02 AM EDT 11/27/2022 - IM'd [facility] to fill. Medication ordered. Defer to 12/06/2022 for delivery. POM Reason: Insurance mandated Insurance Info: [employer]na Medicare Advantage Auth Expirin06/05/2025 Pharmacy/Company: [facility] Phone number: IM claims technician [place] Location: [facility] Estimated Delivery Date: 12/06/2022 - [facility]sp Appointment Date: 12/11/2022 Ordered Date: 11/27/2022 Delivery Address: Attn: 6th floor IIP [address] [place] [address] RX: Eligard Dose: 22.5mg 3 mo Quantity: [...] Prostate Cancer ABEL Cerrato [facility] 11/27/2022, 1:19 PM * Mary Jo Gar rn appeals - 11/20/2022 12:01 PM EDT 11/20/2022 - Defer to 01/27/2023 to order refill. ABEL Cerrato [facility] 11/20/2022, 12:02 PM * Mary Jo Gar rn appeals - 08/31/2022 10:15 AM EDT 09/08/2022 - Received medication per pharmacy staff. Defer 11/20/2022 for refill. 08/31/2022 - IM'd [facility] for refill. Defer to 09/07/2022 for delivery. POM Reason: Insurance mandated Insurance Info: [employer]na Medicare Advantage Auth Expirin06/05/2025 Pharmacy/Company: [facility] Phone number: IM claims technician [place] Location:[facility] Estimated Delivery Date: received 09/07/2022 - gsp Appointment Date: 09/11/2022 Ordered Date:08/31/2022 Delivery Address:Attn: 6th floor IIP [address] [place] [address] RX:Eligard Dose:22.5mg 3 mo Quantity:1 Manufactured Supplied:No [...] 06/15/2022 - [facility] * Mary Jo Gar rn appeals - 06/14/2022 11:44 AM EDT 06/14/2022 - IM'd [facility] to fill script. Defer to 06/15/2022 for delivery. POM Reason: Insurance mandated Insurance Info: [employer]na Medicare Advantage Auth Expirin06/05/2025 Pharmacy/Company: [facility] Phone number: IM claims technician [place] Location: [facility] Estimated Delivery Date: 06/15/2022 - [facility] Appointment Date: 06/16/2022 Ordered Date:06/14/2022 Delivery Address: Attn: 6th floor IIP [address] [place] [address] RX: Eligard Dose: 22.5mg 3 mo Quantity: [...] Expiring: Pharmacy/Company: Phone number: [place] Location: [facility] Estimated Delivery Date: TBD Appointment Date: Ordered Date: Delivery Address: Attn: 6th floor IIP P[address] [place] [address] RX: Eligard Dose: 22.5mg 3 mo Quantity: [...] DX: C61 Prostate Cancer ABEL Donald [facility] 06/07/2022, 10:14 AM documented in this encounter Plan of Treatment Upcoming Encounters Date Type Department Care Team (Late st Contact Info) Description 09/28/2023 1:00 PM EDT Laboratory Laboratory, [address] [phone] [facility], Lab [address] [place] [address] 09/28/2023 2:00 PM EDT Telemedicine Hematology/Oncology, [address] [address] Stan Parra MD [facility] [place] [address] Cart, Telemed [facility] Hem Onc [facility] [address] [place] [address] 09/28/2023 2:30 PM EDT Immunization/Injection Hematology/Oncology Treatment, [address] [address] [facility], Chair3 Hem Onc [address] [place] [address] 10/26/2023 9:30 AM EDT Pharmacy Pharmacy Hematology Oncology [place] [address] [place] [address] [facility] Hem/Onc [facility] [place] [address] 11/06/2023 9:45 AM EDT Imaging Radiology [facility] [address] [place] [address] 11/14/2023 1:00 PM EDT Office Visit Radiation Oncology, [facility] [address] [facility] [place] [address] IovoliDragan MD [address] [facility] [place] [address] 12/03/2023 9:00 AM EDT Office Visit Family Practice [facility] [address] [facility] [place] [address] EvelynKaz napier III, MD [address] [facility] [place] [address] Scheduled Procedures Name Priority Associated Diagnoses Date/Ti [...] patient have Health Care Power of Director Dental Services? 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
--- OUTSIDE RECORDS SUMMARY | 2024-01-26 10:44 | External Medical Summary ---
Author Name Unknown Address Unknown Organization [id number]:[facility] - [address] [place] [address] Ave. Kerri [place] [address] Laboratory Report Ordering Provider Test Date Status JESÚS BESS 09/28/2023 12:44:39 Final Observation Date Value Abnormality Reference (Units ) Status WBC, Total 09/28/2023 12:44:39 6.16 4.00-10.80 (K/uL) Final RBC 09/28/2023 12:44:39 4.46 4.50-5.25 (M/uL) Final Hemoglobin 09/28/2023 12:44:39 13.8 Below low normal 14.0-16.8 (g/dL) Final HCT 09/28/2023 12:44:39 40.5 40.0-48.4 (%) Final MCV 09/28/2023 12:44:39 90.8 82.0-99.5 (fL) Final MCH 09/28/2023 12:44:39 30.9 27.0-34.0 (pg) Final MCHC 09/28/2023 12:44:39 34.1 32.0-36.0 (g/dL) Final RDW 09/28/2023 12:44:39 12.9 11.5-15.5 (%) Final Platelets 09/28/2023 12:44:39 160 140-400 (K/uL) Final MPV 09/28/2023 12:44:39 10.6 6.6-11.1 (fL) Final Nucleated erythrocytes/100 leukocytes [Ratio] in Blood by Automated count 09/28/2023 12:44:39 0 <=0 (/100 WBCs) Final Performing Location [facility] - [address] [place] [address]
--- OUTSIDE RECORDS SUMMARY | 2024-01-26 10:44 | External Medical Summary ---
Author Name Unknown Address Unknown Organization [id number]:[facility] [place] [address] [facility] [address] [facility] [address] Laboratory Report Ordering Provider Test Date Status JESÚS BESS 09/28/2023 12:59:38 Final Observation Date Value Abnormality Reference (Units ) Status PSA 09/28/2023 12:59:38 <0.02 <4.10 (ng/ mL) Final Performing Location LABORATORY [facility] - [address] [facility] [address]
--- OUTSIDE RECORDS SUMMARY | 2024-01-26 10:44 | External Medical Summary | Summary of Care ---
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 [address] [place] [address] Malignant neoplasm of prostate (HCC)*; Back pain, unspecified back location, unspecified back pain laterality, unspecified chronicity; Encounter to discuss test results; Encounter for medication monitoring; Chronic gastritis without bleeding, unspecified gastritis type Allergies Active Allergy Reactions Criticality Noted Date [...] 05/14/2023 Active predniSONE 5 MG Oral Tablet (Deltasone)Indica tions:Malignant neoplasm of prostate (HCC) Take 1 tablet by mouth in the morning. 30 Tablet 5 05/22/2023 Active Abiraterone Acetate 250 MG Oral Tablet (Zytiga)Indicatio ns:Malignant neoplasm of prostate (HCC) Take 1 Tablet by mouth in the morning. 30 Tablet 5 05/22/2023 Active Calcium Carb-Cholecalcife rol 600-10 MG-MCG Oral [...] in the morning. 90 Tablet 11 10/05/2021 4 Discontinue d(Refill) documented as of this [...] No 05/14/2023 Does the household have a [facility] source of income? (Household - for ages [...] Sign Reading Time Taken Comments Blood Pressure 148/75 06/22/2023 2:37 PM EDT Pulse 76 06/22/2023 2:37 PM EDT Temperature - - Respiratory Rate - - Oxygen Saturation 97% 06/22/2023 2:37 PM EDT Inhaled Oxygen Concentration - - Weight 94.7 kg (208 lb 11.2 oz) 06/22/2023 2:37 PM EDT Height - - Body Mass Index 28.3 06/12/2023 1:08 PM EDT documented in this encounter Progress Notes * Stan Parra MD - 06/22/2023 2:34 PM EDT Images from the original note were not included. TeleVIDEO Visit Patient location: CLINIC. I was in a different facility from the patient. After connecting through televideo, patient was verified with two unique identifiers. Patient (or authorized legal medical detail representative) was then informed that this was [...] that I have reviewed their record in [employer] and presented the opportunity for them to ask any questions regarding the visit today. The patient agreed to participate. Patient's Name: Piyush Aponte MR #: [id number] : 1950 Today's date: 06/22/2023 PCP: Kaz Rivas III, MD Referring provider: Bradley Uriarte Jr., MD Reason for referral: Prostate cancer (HCC) Hematology/Oncology diagnosis: Prostate AWILDA, with some cores showing intraductal histology, Very high risk group, Stage IIIC, [id number], Grade group 5: Derek score 4+5=9, Cores W/ Carcinoma(02/23), PSA = 20.83 (04/30/2018). Biochemical recurrence (12/2021) (PSA: 0.24--> 0.38--> 1.7-->2.03-->2.32--> 2.32-->3.14) mCSPC with oligo metastatic disease; Aortocaval LN + T6 (Apr 2022) Other comorbidities: Mild chronic [...] better, he is tolerating Zytiga very well. Also he started statin few weeks ago and there is no worsening of muscle aches. He was observed in [facility] few weeks ago because of chest pain, that was found to benoncardiac. Also had EGD done on June 18, 2023, that showed evidence of mild chronic gastritis. He is on omeprazole. Patient was evaluated by chiropractor for mid and lower back pain, and they sent me a letter requesting x-ray for his T-spine, L-spine, and pelvis before starting treating him. History of present illness (at time of [...] adenocarcinoma, Very high risk group, Stage IIIC, [id number], Grade group 5: [place] score 4+5=9, Cores W/ C arcinoma(/). He started Casodex followed by long-term Lupron [...] at ENDOSCOPY [facility] COLONOSCOPY, DIAGNOSTIC (RECTUM) 08/17/2021 benign polyp, diverticulosis, repeat 5 yrs / COLONOSCOPY FLEXIBLE PROXIMAL DIAGNOSTIC performed by Chavez Abbasi MD at ENDOSCOPY [facility] COLONOSCOPY, GI REFERRAL OP 03/02/2006 hyperplastic polyps--repeat 5 years COLORECTAL CANCER SCREEN;W/FLE 06/05/2001 70 cms wnl DENTAL SURGERY PROCEDURE NEC Dental Surgery Procedure EGD, FLEXIBLE, DIAGNOSTIC 12/22/2011 UPPER GI ENDOSCOPY DIAGNOSTIC performed by Berkley Rosen DO at ENDOSCOPY [facility] bile reflux and inlet patch EGD, FLEXIBLE, DIAGNOSTIC 06/18/2023 biopsies from esophagus show mild inflammation/ESOPHAGOGASTRODUODENOSCOPY (EGD), FLEXIBLE, TRANSORAL, DIAGNOSTIC performed by Ayah Meza MD at ENDOSCOPY [facility] INFORMATION 1983 Herniated disc repair KNEE ARTHROSCOPY/MENISCUS REPAIR Left 2014 KNEE ARTHROSCOPY/SURGERY Left 09/23/2020 shave menniscus chondroplasty REMOVE GALLBLADDER 11/17/2002 Cholecystectomy - open [facility] Dr. Gold REMOVE LUMBAR SPINE LAMINA, 3+ SEGS 1981 Lumbar Disk Excision REMOVE TONSILS & ADENOIDS, UNDER 12 Tonsillectomy/Adenoids,<12 Y/O SHOULDER ARTHROSCOPY/DEBRIDEMENT Left 2017 STRESS TREADMILL 2000 wnl TRANSPERINEAL BX OF PROSTATE, STEREOTACTIC N/A 04/30/2018 TRANSPERINEAL BX OF PROSTATE, STEREOTACTIC performed by Vy Tyler MD at OR [facility] UPPER ENDOSCOPY GI REFERRAL OP 03/02/2006 [...] @83 Glaucoma Father Prostate cancer Father 78 Arthritis Father Cancer Father No Past Hx Sister (covid) Diabetes Grandfather (Maternal) @78 Cancer Uncle (Paternal) [...] Tablet in the morning. 90 Tablet 11 Ondansetron HCl 8 MG Oral Tablet Take [...] 1 hour before dinner 180 Capsule 2 No current facility-administered medications for this visit. Review of patient's allergies indicates: Allergen Reactions Levaquin [Levofloxacin] Muscle pain Oxycodone Nausea/vomiting Physical exam: Vitals 06/11/2023 00:00 06/12/2023 06/13/2023 06/14/2023 15:07 06/18/2023 06/22/2023 Vitals BP 120/79 148/75 Pulse 70 76 Resp 16 Temp 36.4 C (97.5 F) SpO2 97 % 97 % Weight 205 lb 208 lb 11.2 oz Height 1.829 m (6') BMI 27.8 Notes Notes Progress Notes Signed Unknown, No Physician Data Telephone Encounter Signed Erlinda Vasquez OSA Telephone Encounter Signed Chaya Peres LPN Progress Notes Signed Jordan Andrade OSA Anesthesia Postprocedure Evaluation Signed Nikole Pacheco MD Progress Notes Incomplete Stan Parra MD Details More values are hidden. Newest values shown. Go to activity for more data. General: alert, healthy and no distress Head: Normocephalic, No masses, lesions, tenderness or abnormalities Rest of examination can not be performed because of video visit Labs: Results for orders placed or performed in visit on 06/22/23 CBC Result Value Ref Range WBC 5.72 4.00 - 10.80 K/uL RBC 4.42 4.50 - 5.25 M/uL HGB 13.3 (L) 14.0 - 16.8 g/dL HCT 39.9 (L) 40.0 - 48.4 % MCV 90.3 82.0 - 99.5 fL MCH 30.1 27.0 - 34.0 pg MCHC 33.3 32.0 - 36.0 g/dL RDW 13.7 11.5 - 15.5 % PLT 180 140 - 400 K/uL MPV 10.0 6.6 - 11.1 fL nRBCs 0 <=0 /100 WBCs DIFFERENTIAL, AUTOMATED Result Value Ref Range WBC 5.72 4.00 - 10.80 K/uL Neutrophils % 83.4 (H) 40.0 - 75.0 % Lymphocytes % 10.5 (L) 18.0 - 42.0 % Monocytes % 5.4 1.0 - 11.0 % Eosinophils % 0.3 0.0 - 6.0 % Basophils % 0.2 0.0 - 2.0 % Immature Granulocytes % 0.2 0.0 - 2.0 % Absolute Neutrophils 4.77 1.80 - 7.70 K/uL Absolute Lymphocytes 0.60 (L) 1.00 - 4.80 K/ul Absolute Monocytes 0.31 0.00 - 1.10 K/uL Absolute Eosinophils 0.02 0.00 - 0.70 K/uL Absolute Basophils 0.01 0.00 - 0.20 K/uL Absolute Immature Granulocytes 0.01 0.00 - 0.20 K/uL *Note: Due to a large number of results and/or encounters for the requested time period, some results have not been displayed. A complete set of results can be found in Results Review. Imaging: No imaging results in the last 6 months Pathology Review: EGD on 06/18/23 mpression: - [...] intraductal histology, Very high risk group, StageIIIC, [id number], Grade group 5: Derek score 4+5=9, Cores [...] Nausea, with no vomiting Diarrhea Dehydration Plan: Tolerating Zytiga very well, with no worsening muscle aches, even after starting statin few weeks ago. Recommend continue same dose of Zytiga 250 mg q.day with low-fat breakfast. EGD report reviewed, showed mild chronic gastritis, he is on daily omeprazole. Was evaluated by chiropractor for mid and lower back pain, and requested x-rays for T-spine, L-spine, and pelvis. X-rays ordered. CMP, PSA still pending, but his PSA continue to drop nicely as per last checked in May 2023. AlsoI see his kidney function has been improving since his last visit and he keeps himself well hydrated. Continue Eligard shot q.3 months. He is [...] to the the level of their satisfaction Plan XR L Spine AP and Lateral XR T Spine AP and Lateral XR Hip bilat 3-4 views including ap of pelvis Check-out note: Spine and pelvic Xray as ordered. OK for Eilgard Shot today, and q.3 months CBC with diff, CMP Q monthly Return to clinic with Fidel in 3 months with CBC with diff, CMP, PSA This chart was completed in part utilizing [employer] Speech Voice Recognition Software. Grammatical errors, random [...] this encounter Nursing Notes * Roberto Bauman MED ASSIST - 06/22/2023 2:41 PM EDT Patient identified by name and date of . Do you have any concerns about pain management for today's visit? No Living Will or Advance Directive for Health Care as noted on problem list. My [facility] is a way you can talk to your provider online through e-mail. Would you like to sign up? I can activate it for you? ALREADY ACTIVE BP 148/75 (BP Site: Right Arm, BP Position: Sitting, BP Cuff Size: Regular) | Pulse 76 | Wt 94.7 kg(208 lb 11.2 oz) | SpO2 97% | BMI 28.30 kg/m | BSA 2.19 m Patient was instructed to not get [...] Miscellaneous Notes * Addendum Note - Uyen Kaur RN - 09/28/2023 12:44 PM EDTAddended by: UYEN KAUR on: 09/28/2023 12:44 PM Modules accepted: Orders documented in this encounter Plan of Treatment Upcoming Encounters Date Type Department Care Team (Latest Contact Info) Description 09/28/2023 1:00 PM EDT Laboratory Laboratory, [address] [place] [id number] [facility], Lab [address] [place] [address] Malignant neoplasm of prostate (HCC) 09/28/2023 2:00 PM EDT Telemedicine Hematology/Oncolog y, [facility] [address] [place] [address] Stan Parra MD [address] [place] [address] Buffy, Telemed [facility] [address] [place] [address] 09/28/2023 2:30 PM EDT Immunization/Injecti on Hematology/Oncolog y Treatment, [address] [address] [facility], Chair3 Hem Onc [address] [place] [address] 10/26/2023 9:30 AM EDT Pharmacy Pharmacy Hematology Oncology [facility] [address] [place] [address] [facility] Hem/Onc [address] [place] [address] 11/06/2023 9:45 AM EDT Imaging Radiology [facility] [address] [facility] [place] [address] [facility] [place] [address] 11/14/2023 1:00 PM EDT Office Visit Radiation Oncology, [facility] [address] [place] [address] [place], Dragan Gavin MD [address] [place] [phone] 12/03/2023 9:00 AM EDT Office Visit [facility] [address] [place] [address] Kaz Rivas III, MD [address] [facility] [place] [address] Scheduled Orders Name Type Priority Associated Diagnoses Orde r Schedule PSA Lab STAT Malignant neoplasm of prostate (HCC) Expected: 09/28/2023 (Approximate), Expires: 09/27/2024 Scheduled Procedures Name Priority [...] Procedure Name Priority Date/Time Associated Diagnosis Comments XR HIP BILAT MIN 5 VIEWS INCLUDING AP OF PELVIS Routine 06/22/2023 3:48 PM EDT Malignant neoplasm of prostate (HCC) Back pain, unspecified back location, unspecified back pain laterality, unspecified chronicity XR L SPINE AP AND LATERAL Routine 06/22/2023 3:48 PM EDT Malignant neoplasm of prostate (HCC) Back pain, unspecified back location, unspecified back pain laterality, unspecified chronicity XR T SPINE AP AND LATERAL Routine 06/22/2023 3:48 PM EDT Malignant neoplasm of prostate (HCC) Back pain, unspecified back location, unspecified back pain laterality, unspecified chronicity documented in this encounter Results * XR HIP BILAT MIN 5 VIEWS INCLUDING AP OF PELVIS (06/22/2023 3:48 PM EDT) Anatomical Region Laterality Modality Lower Extremity, Hip, Pelvis Dig ital Radiography 06/22/2023 3:30 PM EDT Impressions 06/30/2023 2:02 PM EDT IMPRESSION: No acute process. 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 Views: 5 or more views of hips with pelvis when performed. Total images: 5 COMPARISON: CT ABD/PELVIS W IV AND 10/24/2022 10:23 AM FINDINGS: Bones/joints: Transitional vertebra at the lumbosacral junction. Mild osteoarthritis right and left hips with subchondral sclerosis and minimal spurring. No acute fracture. Soft tissues: Unremarkable. Procedure Note Mariela Head MD - 06/30/2023 PROCEDURE INFORMATION: Exam: XR Bilateral Hips Exam date and time: 06/22/2023 3:30 PM Age: 72 years old Clinical indication: Malignant neoplasm of prostate; Dorsalgia,unspecified; Additional info: Metastatic prostate cancer with back pain TECHNIQUE: Imaging protocol: Radiologic exam of the bilateral hips. Views: 5 or more views of hips with pelvis when performed. Total images: 5 COMPARISON: CT ABD/PELVIS W IV AND 10/24/2022 10:23 AM FINDINGS: Bones/joints: Transitional vertebra at the lumbosacral junction. Mild osteoarthritis right and left hips with subchondral sclerosis and minimal spurring. No acute fracture. Soft tissues: Unremarkable. IMPRESSION IMPRESSION: No acute process. 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 THIS DOCUMENT HAS BEEN ELECTRONICALLY SIGNED BY MARIELA HEAD MD Stan Parra MD RADIOLOGY ( [facility]) * XR T SPINE AP AND LATERAL (06/22/2023 3:48 PM EDT) Anatomical Region Laterality Modality Vertebra, Spine, Tspine Digital Radiography 06/22/2023 3:30 PM EDT Impressions 06/30/2023 1:59 PM EDT IMPRESSION: Multiple thoracic spine compression deformities unchanged from 06/21/2022 THIS DOCUMENT HAS BEEN ELECTRONICALLY SIGNED BY MARIELA HEAD MD Narrative 06/30/2023 1:59 PM EDT PROCEDURE INFORMATION: Exam: XR Thoracic Spine Exam date and time: 06/22/2023 3:30 PM Age: 72 years old Clinical indication: Malignant neoplasm of prostate; Dorsalgia, unspecified; Additional info: Metastatic prostate cancer with back pain TECHNIQUE: Imaging protocol: Radiologic exam of the thoracic spine. Views: 2 views. Total images: 2 COMPARISON: DX XR T SPINE AP AND LATERAL 06/21/2022 12:48 PM FINDINGS: Bones/joints: Mild compression deformities of L2, T11, and T7 unchanged. Extremely minimal compression deformity at T8 unchanged. No change in alignment. Soft tissues: Unremarkable. Procedure Note Mariela Head MD - 06/30/2023 PROCEDURE INFORMATION: Exam: XR Thoracic Spine Exam date and time: 06/22/2023 3:30 PM Age: 72 years old Clinical indication: Malignant neoplasm of prostate; Dorsalgia,unspecified; Additional info: Metastatic prostate cancer with back pain TECHNIQUE: Imaging protocol: Radiologic exam of the thoracic spine. Views: 2 views. Total images: 2 COMPARISON: DX XR T SPINE AP AND LATERAL 06/21/2022 12:48 PM FINDINGS: Bones/joints: Mild compression deformities of L2, T11, and T7 unchanged. Extremely minimal compression deformity at T8 unchanged. No change in alignment. Soft tissues: Unremarkable. IMPRESSION IMPRESSION: Multiple thoracic spine compression deformities unchanged from 06/21/2022 THIS DOCUMENT HAS BEEN ELECTRONICALLY SIGNED BY MARIELA HEAD MD Stan Parra MD RADIOLOGY ( [facility]) * XR L SPINE AP AND LATERAL (06/22/2023 3:48 PM EDT) Anatomical Region Laterality Modality Vertebra, Lspine Digital Radiogr aphy 06/22/2023 3:30 PM EDT Impressions 06/30/2023 1:56 PM EDT IMPRESSION: 1. No interval change in mild compression deformity of what is referred to as L2. There is a transitional vertebra. 2. Moderate lumbar spondylosis. THIS DOCUMENT HAS BEEN ELECTRONICALLY SIGNED BY MARIELA HEAD MD Narrative 06/30/2023 1:56 PM EDT PROCEDURE INFORMATION: Exam: XR Lumbosacral Spine Exam date and time: 06/22/2023 3:30 PM Age: 72 years old Clinical indication: Malignant neoplasm of prostate; Dorsalgia, unspecified; Additional info: Metastatic prostate cancer with back pain TECHNIQUE: Imaging protocol: Radiologic exam of the lumbosacral spine. Views: 2 or 3 views. Total images: 3 COMPARISON: DX XR L SPINE COMPLETE 06/21/2022 12:48 PM FINDINGS: Bones/joints: Transitional vertebra with partial lumbarization of S1. Pseudoarticulation on the left. Moderate intervertebral disc space narrowing at L5-S1. Facet degenerative changes at lower lumbar levels. Mild compression deformity of L2 unchanged. Soft tissues: Unremarkable. Procedure Note Mariela Head MD - 06/30/2023 PROCEDURE INFORMATION: Exam: XR Lumbosacral Spine Exam date and time: 06/22/2023 3:30 PM Age: 72 years old Clinical indication: Malignant neoplasm of prostate; Dorsalgia,unspecified; Additional info: Metastatic prostate cancer with back pain TECHNIQUE: Imaging protocol: Radiologic exam of the lumbosacral spine. Views: 2 or 3 views. Total images: 3 COMPARISON: DX XR L SPINE COMPLETE 06/21/2022 12:48 PM FINDINGS: Bones/joints: Transitional vertebra with partial lumbarization of S1. Pseudoarticulation on the left. Moderate intervertebral disc spacenarrowing at L5-S1. Facet degenerative changes at lower lumbar levels. Mild compression deformity of L2 unchanged. Soft tissues: Unremarkable. IMPRESSION IMPRESSION: 1. No interval change in mild compression deformity of what is referredto as L2. There is a transitional vertebra. 2. Moderate lumbar spondylosis. THIS DOCUMENT HAS BEEN ELECTRONICALLY SIGNED BY MARIELA HEAD MD Stan Parra MD RADIOLOGY ( [facility]) documented in this encounter Visit Diagnoses Diagnosis Malignant neoplasm of prostate (HCC)- Primary Malignant neoplasm of prostate Back pain, unspecified back location, unspecified back pain laterality, unspecified chronicity Encounter to discuss test results Other specified counseling Encounter for medication monitoring Encounter for therapeutic drug monitoring Chronic gastritis without bleeding, unspecified gastritis type Malignant neoplasm of prostate (HCC) Malignant neoplasm [...] the patient have Health Care Power of General Repairer? Yes, not currently available Care Teams Dedicated Intermodal Truck Driver Relationship Specialty Start Date End Date Kaz Rivas III, MD [address] [facility] [place] [address] PCP - General 10/25/1995 documented as of this encounter"
--- OUTSIDE RECORDS SUMMARY | 2024-01-26 10:44 | External Medical Summary ---
Author Name Unknown Address Unknown Organization K09:[facility] [address] [place] [address] Laboratory Report Ordering Provider Test Date Status JESÚS BESS 08/24/2023 13:05:14 Final Observation Date Value Abnormality Reference (Units ) Status BUN 08/24/2023 13:05:14 15 6-20 (mg/dL) Final Creatinine 08/24/2023 13:05:14 0.9 0.6-1.2 (mg/dL) Final Glomerular filtration rate/1.73 sq M.predicted [Volume Rate/Area] in Serum, Plasma or Blood by Creatinine-based formula (CKD-EPI) 08/24/2023 13:05:14 >90 >=60 (mL/min) Final eGFR is calculated based on the CKD-EPI 2020 equation Sodium 08/24/2023 13:05:14 142 135-146 (m mol/L) Final Potassium 08/24/2023 13:05:14 4.0 3.5-5.1 (m mol/L) Final Cl 08/24/2023 13:05:14 106 98-107 (mm ol/L) Final CO2 08/24/2023 13:05:14 24 22-32 (mmo l/L) Final Anion gap 08/24/2023 13:05:14 12 7-15 (mmol /L) Final Glucose 08/24/2023 13:05:14 133 Above high normal 70 -120 (mg/dL) Final Albumin 08/24/2023 13:05:14 3.9 3.8-5.0 (g /dL) Final AST (Aspartate aminotransferase) 08/24/2023 13:05:14 23 10-50 (U/L) Fin al Alk Phos 08/24/2023 13:05:14 76 35-130 (U/ L) Final Bilirubin, Total 08/24/2023 13:05:14 0.5 <=1 .2 (mg/dL) Final Calcium 08/24/2023 13:05:14 9.2 8.4-10.2 ( mg/dL) Final Protein 08/24/2023 13:05:14 6.4 6.0-8.3 (g /dL) Final ALT (Alanine aminotransferase) 08/24/2023 13:05:14 8 Below low normal 10-50 (U/L) Final Performing Location [facility] [address] [place] [address]
--- OUTSIDE RECORDS SUMMARY | 2024-01-26 10:44 | External Medical Summary ---
Author Name Unknown Address Unknown Organization K1F:[facility] - [address] [place] [address] Laboratory Report Ordering Provider Test Date Status JESÚS BESS 09/28/2023 12:44:39 Final Observation Date Value Abnormality Reference (Units ) Status BUN 09/28/2023 12:44:39 14 6-20 (mg/dL) Final Creatinine 09/28/2023 12:44:39 0.8 0.6-1.2 (mg/dL) Final Glomerular filtration rate/1.73 sq M.predicted [Volume Rate/Area] in Serum, Plasma or Blood by Creatinine-based formula (CKD-EPI) 09/28/2023 12:44:39 >90 >=60 (mL/min) Final eGFR is calculated based on the CKD-EPI 2020 equation. Sodium 09/28/2023 12:44:39 140 135-146 (m mol/L) Final Potassium 09/28/2023 12:44:39 4.2 3.5-5.1 (m mol/L) Final Cl 09/28/2023 12:44:39 104 98-107 (mm ol/L) Final CO2 09/28/2023 12:44:39 24 22-32 (mmo l/L) Final Anion gap 09/28/2023 12:44:39 12 7-15 (mmol /L) Final Glucose 09/28/2023 12:44:39 131 Above high normal 70 -120 (mg/dL) Final Albumin 09/28/2023 12:44:39 4.0 3.8-5.0 (g /dL) Final AST (Aspartate aminotransferase) 09/28/2023 12:44:39 25 10-50 (U/L) Fin al Alk Phos 09/28/2023 12:44:39 78 35-130 (U/ L) Final Bilirubin, Total 09/28/2023 12:44:39 0.5 <=1 .2 (mg/dL) Final Calcium 09/28/2023 12:44:39 9.2 8.4-10.2 ( mg/dL) Final Protein 09/28/2023 12:44:39 6.6 6.0-8.3 (g /dL) Final ALT (Alanine aminotransferase) 09/28/2023 12:44:39 14 10-50 (U/L) José kuhn Performing Location [facility] - [address] [place] [address] [place] [address]
--- OUTSIDE RECORDS SUMMARY | 2024-01-26 10:44 | External Medical Summary | Summary of Care ---
Author Name Unknown Organization [facility] Address [address] [place] [address] Phone [phone] Care Team Providers Care Candy Maker Name Role Phone Evelyn FRANZ MD, Kaz Canela Primary Care Provider [phone] Reason for Visit * Reason Comments Outpatient Testing Encounter Details Date Type Department Care Team (Late st Contact Info) Description 08/24/2023 1:20 PM EDT Laboratory Laboratory [facility] [place] [address] [place] [id number] [place], Lab Scenery [address] [place] [address] Malignant neoplasm of prostate (HCC) Allergies Active [...] (Moderna) 05/21/2020,04/23/2020 COVID-19, LNP-s, No Preserve , Rodrgiuez-sucrose, Ages 12+ (Pfizer) 04/06/2021 Pneumococcal Conjugate Vacc, [...] Description 09/28/2023 1:00 PM EDT Laboratory Laboratory, [facility] [address] [place] [phone] [facility], Lab [address] [place] [id number] 09/28/2023 2:00 PM EDT Telemedicine Hematology/Oncology, [facility] [address] [place] [address] Stan Parra MD [address] [place] [address] Cart, Telemed [facility] [address] [place] [address] 09/28/2023 2:30 PM EDT Immunization/Injection Hematology/Oncology Treatment, [address] [address] [facility], Chair1 Hem Onc [address] [place] [address] 11/06/2023 9:45 AM EDT Imaging Radiology [facility] 1st Floor, [place] [address] [place] [address] 11/14/2023 1:00 PM EDT Office Visit Radiation Oncology, [facility] [address] [place] [address] Crescencio Obrien MD [address] [place] [address] 12/03/2023 9:00 AM EDT Office Visit Family Practice [facility] [place] [address] [place] [address] Kaz Rivas III, MD 200 [place] [address] Pending Results Name Type Priority Associated Diagnoses Date /Time COMPREHENSIVE METABOLIC PANEL Lab STAT Malignant neoplasm of prostate (HCC) 08/24/2023 1:05 PM EDT Scheduled Procedures Name Priority Associated [...] 01/11/2022, 12/18/2019, 11/22/2018, Additional history exists GFR 07/22/2024 07/23/2023, 06/10, 05/22/2023, Additional history exists Albumin/Creatinine Ratio 10/05/2024 10/05/2021 [...] Date/Time Associated Diagnosis Comments DIFFERENTIAL, AUTOMATED STAT 08/24/2023 1:05 PM EDT Malignant neoplasm of prostate (HCC) CBC STAT 08/24/2023 1:05 PM EDT Malignant neoplasm of prostate (HCC) CBC STAT 08/24/2023 1:05 PM EDT Malignant neoplasm of prostate (HCC) documented in this encounter Results * (ABNORMAL) DIFFERENTIAL, AUTOMATED (08/24/2023 1:05 PM EDT) WBC 6.35 4.00 - 10.80 K/uL 08/24/2023 1:10 PM EDT [facility] 56-02 Neutrophils % 87.9(H) 40.0 - 75.0 % 08/24/2023 1:10 PM EDT [facility] 56-02 Lymphocytes % 7.1(L) 18.0 - 42.0 % 08/24/2023 1:10 PM EDT [facility] 56-02 Monocytes % 4.6 1.0 - 11.0 % 08/24/2023 1:10 PM EDT [facility] 56-02 Eosinophils % 0.2 0.0 - 6.0 % 08/24/2023 1:10 PM EDT [facility] 56-02 Basophils % 0.2 0.0 - 2.0 % 08/24/2023 1:10 PM EDT [facility] 56-02 Absolute Neutrophils 5.59 1.80 - 7.70 K/uL 08/24/2023 1:10 PM EDT [facility] 56-02 Absolute Lymphocytes 0.45(L) 1.00 - 4.80 K/ul 08/24/2023 1:10 PM EDT [facility] 56-02 Absolute Monocytes 0.29 0.00 - 1.10 K/uL 08/24/2023 1:10 PM EDT [facility] 56-02 Absolute Eosinophils 0.01 0.00 - 0.70 K/uL 08/24/2023 1:10 PM EDT [facility] 56-02 Absolute Basophils 0.01 0.00 - 0.20 K/uL 08/24/2023 1:10 PM EDT [facility] 56-02 Blood Venous blood specimen / Unknown Venipuncture / Unknown 08/24/2023 1:05 PM EDT 08/24/2023 1:05 PM EDT Stan Parra MD LAB BLOOD O RDERABLES [facility] 56 [address] [place] [address] * (ABNORMAL) CBC (08/24/2023 1:05 PM EDT) WBC 6.35 4.00 - 10.80 K/uL 08/24/2023 1:10 PM EDT [facility] 56- RBC 4.22 4.50 - 5.25 M/uL 08/24/2023 1:10 PM EDT [facility] 56 HGB 12.9(L) 14.0 - 16.8 g/dL 08/24/2023 1:10 PM EDT [facility] 56 HCT 38.6(L) 40.0 - 48.4 % 08/24/2023 1:10 PM EDT [facility] 56 MCV 91.5 82.0 - 99.5 fL 08/24/2023 1:10 PM EDT [facility] 56 MCH 30.6 27.0 - 34.0 pg 08/24/2023 1:10 PM EDT [facility] 56 MCHC 33.4 32.0 - 36.0 g/dL 08/24/2023 1:10 PM EDT [facility] 56 RDW 13.8 11.5 - 15.5 % 08/24/2023 1:10 PM EDT [facility] 56 PLT 147 140 - 400 K/uL 08/24/2023 1:10 PM EDT [facility] 56 MPV 10.4 6.6 - 11.1 fL 08/24/2023 1:10 PM EDT [facility] 56 Blood Venous blood specimen / Unknown Venipuncture / Unknown 08/24/2023 1:05 PM EDT 08/24/2023 1:05 PM EDT Stan Parra MD LAB BLOOD O RDERABLES [facility] 56 [address] [place] [address] documented in this encounter Visit Diagnoses Diagnosis [...] the patient have Health Care Power of Bookkeeping Teacher? Yes, not currently available Care Teams Candy Maker Relationship Specialty Start Date End Date Kaz Rivas III, MD [address] [place] [address] PCP - General 10/25/1995 documented as of this encounter
--- OUTSIDE RECORDS SUMMARY | 2024-01-26 10:44 | External Medical Summary ---
Author Name Unknown Address Unknown Organization [facility] [place] [address] Laboratory Report Ordering Provider Test Date Status JESÚS BESS 08/24/2023 13:05:14 Final Observation Date Value Abnormality Reference (Units ) Status SYNC LEUKOCYTES IN BLOOD BY AUTOMATED COUNT 08/24/2023 13:05:14 6.35 4.00-10.80 (K/uL) Final Segs 08/24/2023 13:05:14 87.9 Above high normal 40.0-75.0 (%) Final Lymphs % 08/24/2023 13:05:14 7.1 Below low normal 18.0-42.0 (%) Final Monos 08/24/2023 13:05:14 4.6 1.0-11.0 (%) Final Eosinophils 08/24/2023 13:05:14 0.2 0.0-6.0 (%) Final Basos 08/24/2023 13:05:14 0.2 0.0-2.0 (%) Final Absolute Segs 08/24/2023 13:05:14 5.59 1.80-7.70 (K/uL) Final Lymphs, absolute 08/24/2023 13:05:14 0.45 Below low normal 1.00-4.80 (K/ul) Final Monos, Abs 08/24/2023 13:05:14 0.29 0.00-1.10 (K/uL) Final Eos, Abs 08/24/2023 13:05:14 0.01 0.00-0.70 (K/uL) Final Basos, Abs 08/24/2023 13:05:14 0.01 0.00-0.20 (K/uL) Final Performing Location [facility] [place] [address]
--- OUTSIDE RECORDS SUMMARY | 2024-01-26 10:44 | External Medical Summary | Summary of Care ---
Author Name Unknown Organization [facility] Address [address] [place] [address] Phone [phone] Care Team Providers Care Pricing Coordinator Name Role Phone Evelyn FRANZ MD, Kza Canela Primary Care Provider [phone] Reason for Visit * Reason Comments Patient Assistance Program Encounter Details Date Type Department Care Team (Late st Contact Info) Description 06/07/2022 Documentation Hematology Oncology [facility] [address] [place] [address] Stan Parra MD [address] [place] [address] Allergies Active Allergy Reactions Criticality [...] 05/14/2023 Does the household have a [facility] source of income? (Household - for ages [...] Auth Expirin06/05/2025 Pharmacy/Company: [facility] Phone number: IM internal medicine veterinary technician [place] Location: [facility] Estimated Delivery Date: [facility] - awaiting delivery date Appointment Date: 09/28/2023 Ordered Date: 09/14/2023 Delivery Address: Attn: 6th floor IIP POM [address] [place], [place] [address] [address] RX: Eligard Dose: 22.5mg 3 mo Quantity: [...] - 06/14/2023 3:07 PM EDT Krysta Lr, cloth weaver 06/14/2023 12:40 Received 1 Eligard 22.5 Kit 06/14/23 Estimated Delivery Date: [facility] - order med 09/14/2023 * Jordan Andrade OSA - 06/05/2023 9:19 AM EDT POM Reason: Insurance mandated Insurance Info: A[employer]na Medicare Advantage Auth Expirin06/05/2025 Pharmacy/Company: [facility] Phone number: IM internal medicine veterinary technician [place] Location: [facility] Estimated Delivery Date: [facility] - 06/14/2023 Appointment Date: 06/22/2023 Ordered Date: 06/05/2023 Delivery Address: Attn: 6th floor [facility] [address] [facility] [place] [address] RX: Eligard Dose: 22.5mg 3 mo Quantity: [...] C61 Prostate Cancer * Mary Jo Gar, cloth weaver - 03/21/2023 3:56 PM EST 03/21/2023 - Received medication. Defer to 05/16/2023 to order refill. Estimated Delivery Date: received 03/21/2023 - [facility] Appointment Date: 03/16/2023 Ordered Date: 03/02/2023 Delivery Address: Attn: 6th floor IIP POM [address] [place] [address] RX: Eligard Dose: 22.5mg 3 mo Quantity: 1 Manufactured Supplied: No Refills remaining: Injection Number for this order: Next Refill: 05/16/2023 Upcoming Appt: 05/30/2023 * Jordan Andrade OSA - 03/14/2023 2:29 PM EST 03/15/2023 - "Caterina, our buying team said they are waiting to hear from a special service representative from [facility] regarding [...] Mcwilliams 03/14/2023 - Per Vida Kelly at [facility] "Piyush Tracyd did not come in today [facility] Vida Mcwilliams is working with the buying team to see if it'll come tomorrow." Message to Vida Mcwilliams to keep updated on progress, appt has been moved from 03/16 to 03/23. Push out 1 day to follow up on drug status. Estimated Delivery Date: Missing [place], Pending Alternative - appt 03/23 * Jordan Andrade OSA - 03/02/2023 8:00 AM EST POM Reason: Insurance mandated Insurance Info: Aetna Medicare Advantage Auth Expirin06/05/2025 Pharmacy/Company: [facility] Phone number: IM internal medicine veterinary technician [place] Location: [facility] Estimated Delivery Date: 03/21/2023 - P Appointment Date: 03/16/2023 Ordered Date: 03/02/2023 Delivery Address: Attn: 6th floor IIP POM [address] [facility] [place] [address] RX: Eligard Dose: 22.5mg 3 mo Quantity: [...] defer to 03/02/2023 to order Eligard from [facility] * Galina Barnett OSA - 12/06/2022 2:21 PM EDT Krysta Lr, cloth weaver 12/06/2022 13:58 | Received 1 kit of Eligard 12/06/2022 Estimated Delivery Date: Received 12/06/2022-[facility] ABEL Donald [facility] 12/06/2022, 2:21 PM * Mary Jo Gar cloth weaver - 11/27/2022 9:02 AM EDT 11/27/2022 - IM'd [facility] to fill. Medication ordered. Defer to 12/06/2022 for delivery. POM Reason: Insurance mandated Insurance Info: A[employer]na Medicare Advantage Auth Expirin06/05/2025 Pharmacy/Company: [facility] Phone number: IM internal medicine veterinary technician [place] Location: [facility] Estimated Delivery Date: 12/06/2022 - [facility] Appointment Date: 12/11/2022 Ordered Date: 11/27/2022 Delivery Address: Attn: 6th floor IIP POM [address] [place] [address] RX: Eligard Dose: 22.5mg 3 mo Quantity: [...] 11/27/2022, 1:19 PM * Mary Jo Gar cloth weaver - 11/20/2022 12:01 PM EDT 11/20/2022 - Defer to 01/27/2023 to order refill. ABEL Cerrato [facility] 11/20/2022, 12:02 PM * Mary Jo Gar cloth weaver - 08/31/2022 10:15 AM EDT 09/08/2022 - Received medication per pharmacy staff. Defer 11/20/2022 for refill. 08/31/2022 - IM'd [facility] for refill. Defer to 09/07/2022 for delivery. POM Reason: Insurance mandated Insurance Info: Aetna Medicare Advantage Auth Expirin06/05/2025 Pharmacy/Company: [facility] Phone number: IM internal medicine veterinary technician [place] Location:[facility] Estimated Delivery Date: received 09/07/2022 - [facility] Appointment Date: 09/11/2022 Ordered Date:08/31/2022 Delivery Address:Attn: 6th floor IIP POM [address] [facility] [place] [address] RX:Eligard Dose:22.5mg 3 mo Quantity:1 Manufactured Supplied:No [...] Received 06/15/2022 - [facility] * Mary Jo Gar, cloth weaver - 06/14/2022 11:44 AM EDT 06/14/2022 - IM'd [facility] to fill script. Defer to 06/15/2022 for delivery. POM Reason: Insurance mandated Insurance Info: Aetna Medicare Advantage Auth Expirin06/05/2025 Pharmacy/Company: [facility] Phone number: IM internal medicine veterinary technician [place] Location: [facility] Estimated Delivery Date: 06/15/2022 - [facility] Appointment Date: 06/16/2022 Ordered Date:06/14/2022 Delivery Address: Attn: [facility] floor II POM [address] [place] [address] RX: Eligard Dose: 22.5mg 3 mo Quantity: [...] Auth Expiring: Pharmacy/Company: Phone number: [place] Location: [facility] Estimated Delivery Date: TBD Appointment Date: Ordered Date: Delivery Address: Attn: [facility] floor II POM [address] [place] [address] RX: Eligard Dose: 22.5mg 3 mo Quantity: [...] C61 Prostate Cancer ABEL Donald [facility] 06/07/2022, 10:14 AM documented in this encounter Plan of Treatment Upcoming Encounters Date Type Department Care Team (Late st Contact Info) Description 09/28/2023 1:00 PM EDT Laboratory Laboratory, [address] [phone] [facility], Lab [address] [place] [address] 09/28/2023 2:00 PM EDT Telemedicine Hematology/Oncology, [address] [address] Stan Parra MD [address] [place] [address] Dawna Baered [facility] Hem Onc Clinic [address] [place] [address] 09/28/2023 2:30 PM EDT Immunization/Injection Hematology/Oncology Treatment, [address] [address] [facility], Chair3 Hem Onc [address] [place] [address] 10/26/2023 9:30 AM EDT Pharmacy Pharmacy Hematology Oncology [facility] [address] [place] [address] [facility] Clinic Hem/Onc [address] [place] [address] 11/06/2023 9:45 AM EDT Imaging Radiology [facility], [place] [address] [facility] [place] [address] 11/14/2023 1:00 PM EDT Office Visit Radiation Oncology, [facility] [address] [place] [address] Crescencio Obrien MD [address] [place] [address] 12/03/2023 9:00 AM EDT Office Visit Family Practice [facility] 200 [facility] [place] [address] Kaz Rivas III, MD 200 [facility] [place] [address] Scheduled Procedures Name Priority Associated Diagnoses Date/Ti [...] the patient have Health Care Power of Medicare Sales Executive? Yes, not currently available Care Teams Pricing Coordinator Relationship Specialty Start Date End Date Kaz Rivas III, MD [address] [place] [address] PCP - General 10/25/1995 documented as of this encounter
--- OUTSIDE RECORDS SUMMARY | 2024-01-26 10:44 | External Medical Summary | Summary of Care ---
Author Name Unknown Organization [facility] Address [address] [place] [address] Phone [phone] Care Team Providers Care Garden Equipment Mechanic Name Role Phone Evelyn FRANZ MD, Kalee Canela Primary Care Provider [phone] Reason for Visit * Reason Onset Date Comments Medication Refill 08/02/2023 Encounter Details Date Type Department Care Team (Late st Contact Info) Description 08/02/2023 Refill Family Practice [facility] [place] 200 [place] [address] Kalee Arechiga III, MD [address] [place] [address] Allergies Active Allergy Reactions Criticality Noted Date Comments Levofloxacin Muscle pain 02/07/2018 Oxycodone Nausea/vomiting 02/07/2018 documented as of this encounter (statuses as of 08/03/2023) Medications Medication Sig Dispensed Refills Start Date [...] for 4 doses. 4 Kit 10/03/2022 4 Active Calcium 600+D Plus Minerals 600-400 MG-UNIT [...] the morning. 90 Tablet 3 08/03/2023 Active Rosuvastatin Calcium 5 MG Oral Tablet (Crestor) Take by mouth 1 Tablet in the morning. 90 Tablet 11 10/05/2021 4 Discontinue d(Refill) documented as of this encounter (statuses as of 08/03/2023) Active Problems Problem Noted Date Diagnosed Date [...] as of this encounter (statuses as of 08/03/2023) Resolved Problems Problem Noted Date Diagnosed Date Resolved Date Supraclavicular lymphadenopathy 02/11/2016 01/02/2018 Screening for prostate cancer 04/15/2003 05/20/2008 Overview: Resolved per Screening Diagnosis Protocol #6 Acute cholecystitis 11/25/2002 05/07/19 19 Diaphragmatic hernia 019 documented as of this encounter (statuses as of 08/03/2023) Immunizations Name Administration Dates Next Due COVID-19 [...] encounter Miscellaneous Notes * Telephone Encounter - Mireille Chiang, [facility] - 08/03/2023 12:11 PM EDTSigned Prescriptions: Disp Refills Rosuvastatin Calcium 5 MG Oral Tablet (Cre*90 Tab*3 Sig: Take 1 Tablet by mouth in the morning. Authorizing Provider: KALEE ARECHIGA III Ordering User: MIREILLE CHIANG * Telephone Encounter - Ailyn Mcwilliams, regulatory affairs portfolio leader - 08/02/2023 2:54 PM EDT Did you pend patient's preferred pharmacy and medication before forwarding?yes [facility] Pending Prescriptions: Disp Refills Rosuvastatin Calcium 5 MG Oral Tablet (Cr*90 Tab*3 Sig: Take 1 Tablet by mouth in the morning. Last Visit: 05/31/2023 (in office), Visit date not found (telemedicine) Next Visit: 12/03/2023 If no future appointments scheduled, and last appointment is greater than a year ago, please schedule patient for a follow-up appointment Last date the medication was ordered: 10/05/2021 Is this request for a controlled substance?No Urine Drug Screen:No results found. However, due to the size of the patient record, not all encounters were searched. Please check Results Review for a complete set of results. Patient Phone Numbers Labs: Lab Results Component Value Date/Time CREAT 0.9 07/23/2023 01:34 PM CREAT 0.76 (L) 02/13/2022 04:12 AM CREAT 0.76 (A) 02/13/2022 12:00 AM CREAT 0.9 12/18/2019 10:28 AM POTASSIUM 3.6 07/23/2023 01:34 PM POTASSIUM 3.6 02/13/2022 04:12 AM POTASSIUM 3.6 02/13/2022 12:00 AM POTASSIUM 4.6 12/18/2019 10:28 AM POTASSIUM 4.0 04/01/1996 03:05 PM TSH 2.12 01/03/2019 02:09 PM LDLCALC 52 06/22/2023 01:18 PM LDLCALC 120 12/18/2019 10:28 AM LDLDIRECT NOT APPLICABLE 12/18/2019 10:28 AM LDLDIRECT 138 (H) 04/15/2003 10:48 AM ALT 5 (L) 07/23/2023 01:34 PM ALT 13 12/18/2019 10:28 AM documented in this encounter Plan of Treatment Upcoming Encounters Date Type Department Care Team (Late st Contact Info) Description 08/24/2023 9:30 AM EDT Pharmacy Pharmacy Hematology Oncology [address] [facility] Hem/[place]c [place] [address] 08/24/2023 1:20 PM EDT Laboratory Laboratory [facility] [address] [place] [address] [facility] Lab Scenery [address] [facility] [address] 09/28/2023 1:00 PM EDT Laboratory Laboratory, [address] [address] [facility], Lab [address] [place] [address] 09/28/2023 2:00 PM EDT Telemedicine Hematology/Oncology, [address] [address] Stan Parra MD [facility] [place] [address] Cart, Telemed [facility] Hem Onc Clinic [address] [place] [address] 11/06/2023 9:45 AM EDT Imaging Radiology [facility] 1st [facility] [address] [place] [address] 11/14/2023 1:00 PM EDT Office Visit Radiation Oncology, [facility] [address] [place] [address] Crescencio Obrien MD 400 [place] [address] 12/03/2023 9:00 AM EDT Office [facility] 200 [facility] [address] Kalee Arechiga III, MD [address] [place] [address] Scheduled Procedures Name Priority Associated Diagnoses Date/Ti [...] the patient have Health Care Power of Anthropology Lecturer? Yes, not currently available Care Teams Garden Equipment Mechanic Relationship Specialty Start Date End Date Kalee Arechiga III, MD [address] [place] [address] PCP - General 10/25/1995 documented as of this encounter
--- NOTE | 2024-01-26 10:58 | Communication Note ---
Date of Service: January 26, 2024 Patient seen and evaluated. Reports still feeling a bit nauseated. States he did have emesis several times since admission. Patient looks mildly ill., Lungs clear, heart regular, abdomen slightly distended with minimal tenderness. Reviewed data Repeat troponin negative Suspect acute onset of viral gastroenteritis. Continue supportive care
[2024-01-26] MEDS ORDERED: ONDANSETRON INJ 2 MG/ML 2 ML VIAL IV PRN (10:59)
[2024-01-26] MEDS: PANTOprazole 40 MG TAB PO SCH (21:06)
[2024-01-26] MEDS: TAMSULOSIN HCL 0.4 MG CAP PO SCH (21:06)
[2024-01-27 06:21] LABS: Hematocrit (blood only) 33.3 % (42.0-52.0); Hemoglobin 11.2 g/dl (14.0-18.0); Mean Corpuscular Hemoglobin 29.9 pg (25.0-34.0); Mean Corpuscular Hgb Conc 33.6 g/dL (32.0-36.0); Mean Platelet Volume 10.7 fL (9.4-12.4); Platelet Count 147 K/uL (130-400); RDW Standard Deviation 42.5 fL (36.4-46.3); Red Blood Count 3.74 M/uL (4.70-6.10); White Blood Count 4.39 K/ul (4.8-10.8)
[2024-01-27 06:41] LABS: BUN Creatinine Ratio 17.1 (10-20); Calcium 8.8 mg/dl (8.6-10.3); Potassium 3.5 mmol/L (3.5-5.1)
[2024-01-27 07:31] VITALS: BP 143/82; PULSE 63; RESP 18; TEMP 98.1; O2SAT 95
--- OUTSIDE RECORDS SUMMARY | 2024-01-27 10:35 | External Medical Summary | Summary of Care ---
Author Name Unknown Organization [facility] Address [address] [place] [address] Phone [phone] Care Team Providers Care Interior Design Principal Name Role Phone Evelyn FRANZ MD, Kaz Canela Primary Care Provider [phone] Reason for Visit * Reason Onset Date Comments Appointment 01/26/2024 Encounter Details Date Type Department Care Team (Late st Contact Info) Description 01/26/[address] [place] [address] Chika Veronica, (M) Appointment Allergies Active Allergy Reactions Criticality Noted Date Comments Levofloxacin Muscle pain 02/07/2018 Oxycodone Nausea/vomiting 02/07/2018 documented as of this encounter (statuses as of 01/26/2024) Medications Multiple Vitamins-Mineral s (CENTRUM SILVER 50+MEN) [...] as of this encounter (statuses as of 01/26/2024) Active Problems Problem Noted Date Diagnosed Date [...] as of this encounter (statuses as of 01/26/2024) Resolved Problems Problem Noted Date Diagnosed Date Resolved Date Supraclavicular lymphadenopathy 02/11/2016 01/02/2018 Screening for prostate cancer 04/15/2003 05/20/2008 Overview (05/20/2008): Resolved per Screening Diagnosis Protocol #6 Acute cholecystitis 11/25/2002 05/07/19 19 Diaphragmatic hernia 019 documented as of this encounter (statuses as of 01/26/2024) Immunizations Name Administration Dates Next Due COVID-19 [...] 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 Do you have any electronic or mechanical implants? Have you had a recent colonoscopy in the last 30 days? Are you or ? Do you work around metal or ever gotten metal in your eyes? Any dermals or body piercing you cannot remove? Do you wear an insulin pump or diabetic monitor? Have you had any tattoos or permanent makeup in the last 4 weeks? LM to arrive at 6:00 AM on 01/31/24 documented in this encounter Plan of Treatment Upcoming Encounters Date Type Department Care Team (Late st Contact Info) Description 01/31/2024 6:30 AM EST Imaging Radiology [address], [address] [place] [address] 02/01/2024 9:30 AM EST Pharmacy Pharmacy Hematology On[place] [address] [place] [address] [facility] [place] [address] [place] [address] 03/28/2024 1:00 PM EST Laboratory Laboratory, [address] [id number] [facility], Lab [address] [place] [address] 03/28/2024 2:00 PM EST Telemedicine Hematology/Oncology, [address] [address] Stan Parra MD [address] [place] [address] [facility], Telemed [facility] Hem Onc [facility] [address] [place] [address] 03/28/2024 2:30 PM EST Immunization/Injection Hematology/Oncology Treatment, [address] [place] [id number] [facility], Chair[facility] Hem Onc [address] [place] [address] 06/04/2024 8:00 AM EDT Office Visit [facility] [address] [facility] [place], [place] [address] Kaz Rivas III, MD [address] [facility] [place], [place] [address] 07/15/2024 10:15 AM EDT Office Visit Urology [place] [address] [place] [address] Bradley Uriarte Jr., MD [address] [facility] [id number] 11/13/2024 1:00 PM EDT Office Visit Radiation Oncology, [facility] [address] [place] [address] IovoliDragan MD [address] [place] [address] Scheduled Procedures Name Priority Associated [...] the patient have Health Care Power of [place] Can Worker? Yes, not currently available Care Teams Interior Design Principal Relationship Specialty Start Date End Date Kaz Rivas III, MD [address] [place] [address] PCP - General 10/25/1995 documented as of this encounter
--- NOTE | 2024-01-27 10:36 | Discharge Summary ---
Discharge Summary Date of Service January 27, 2024 Principal Dx & Hospital Course #1 = Principal Diagnosis (1) Viral gastroenteritis: (2) Steroid-induced gastritis: (3) GERD (gastroesophageal reflux disease): Plan Patient presenting the emergency room with acute onset of abdominal pain, nausea and vomiting. Evaluation in the emergency room was unremarkable for acute findings but due to his symptoms referred for further evaluation. Patient was cared for in the hospital. He is ruled out for acute coronary syndrome via enzymes. He was given some IV fluid hydration and put on some bowel rest. His proton pump inhibitor was increased to 2 times daily. Through the course of his hospitalization his symptoms completely resolved. There is no evidence of bowel obstruction on imaging. Laboratory studies were unremarkable. He tolerated advancing his diet. Patient did report he had just been on a burst of steroids for suspected gout. Suspect this may have flared some of his reflux and symptoms and given the may be some gastritis. However with how acutely his symptoms presented raises question of possible viral gastroenteritis/24-hour GI bug. On the morning of discharge she tolerated breakfast. Vital signs stable. No abdominal pain. Will be discharged home to outpatient follow-up with his primary care provider. Notes For Next Care Provider If patient continues to have GI issues may need outpatient GI consultation Medication Changes From Visit Omeprazole increased to 2 times daily Admission HPI Per Admitting Provider History obtained from patient, family, and records. Medical history significant for hypertension, hyperlipidemia, GERD, metastatic prostate cancer on Zytiga/steroid Rx, chronic anemia (baseline hemoglobin 12- 13), history DVT on Eliquis, recent right fibula fracture, pseudogout. 2 weeks ago, patient noted achy right ankle pain without recollection of trauma. Outpatient x-ray showed possible avulsion fracture of right fibula. Boot immobilization recommended. Possible stress reaction/fracture asked where outpatient Orthopedics note from 01/20 Patient had sudden onset achy abdominal pain last night after dinner. Associated with bilious emesis. Denies chest pain, SOB, headache. Denies black/bloody stools. Denies inordinate OTC NSAID intake. 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 Lungs: Clear to auscultation, decreased, no wheezes rales or rhonchi CV: S1-S2, regular Abdomen: Soft, nontender, nondistended Extremities: No significant edema, right lower extremity in walking boot Neuro: No focal deficits Psych: Cooperative, normal mood Updated Medication List Medication Instructions Recorded Confirmed Type sucralfate 1 gram tablet 1 g PO AC 09/13/20 01/26/24 History tamsulosin 0.4 mg capsule 0.4 mg PO PM 03/22/21 01/26/24 History acetaminophen 650 mg 650 mg PO Q8H PRN Pain 04/29/21 01/26/24 History tablet,extended release amoxicillin 500 mg tablet 2,000 mg (4 x 500 mg) PO ONCE PRN 10/31/21 01/26/24 Rx prophylaxis #4 tabs apixaban 5 mg tablet (Eliquis) 5 mg PO BID 03/16/22 01/26/24 History zdeqkiod-xr-msuig 300 mcg-K 60 1 tab PO DAILY 03/16/22 01/26/24 History mcg-lycop 600 mcg-lutein 300 mcg tablet (Centrum Silver Men) abiraterone 250 mg tablet (Zytiga) 250 mg PO QAM 05/26/23 01/26/24 History calcium 600 mg (as 1 tab PO DAILY 05/26/23 01/26/24 History carbonate)-vitamin D3 10 mcg (400 unit) tablet (Calcium 600 + D(3)) prednisone 5 mg tablet 5 mg PO DAILY 05/26/23 01/26/24 History rosuvastatin 5 mg tablet 5 mg PO QAM #30 tabs 05/28/23 01/26/24 Rx omeprazole 40 mg capsule,delayed 40 mg PO BID #60 caps 01/27/24 Rx release Hospital Stay Data Consultations 01/26/24 03:30 ED Decision to Admit Stat Reviewed imaging, laboratory and diagnostic studies. Pertinent findings as below. WBCs 4.3 Hemoglobin 11.2 Electrolytes stable Creatinine 0.76 CT abdomen: No obstruction or inflammation. Questioning some hypodense lesions of the spine that are nonspecific I refer you to the full report for details Diagnostic Imagining Performed 01/26/24 00:12 CT abd pelvis IV con only Stat Pending Results Patient Have Any Pending Studies at Discharge: No Discharge Instructions Given to Patient (Per Discharging Provider) If you continue to have abdominal issues, discussed with your PCP outpatient GI consultation Total Time Total Time Spent Total Time Spent (In Minutes): 26
--- NOTE | 2024-01-28 16:39 | Electrocardiogram Report ---
Test Reason : Blood Pressure : */* mmHG Vent. Rate : 61 BPM Atrial Rate : 61 BPM P-R Int : 172 ms QRS Dur : 90 ms QT Int : 422 ms P-R-T Axes : 52 -7 20 degrees QTcB Int : 424 ms Normal sinus rhythm Incomplete right bundle branch block When compared with ECG of 28-May-2023 05:49, Questionable change in QRS axis Confirmed by Bin Lucas ([id number]) on 01/28/2024 4:38:57 PM Referred By: REFERRED SELF Confirmed By: Bin Lucas
== END 2024-01-27 11:43 | disposition home or self-care (01) ==
LOC: ED 22:48 → 3N 22:48